=== PATIENT | female | born 1965 | race Caucasian/White ===

== ENCOUNTER 2024-08-31 12:58 | Emergency (ER) | payer MEDICAID, SELFPAY ==
[2024-08-31] VITALS (42 sets, daily range): BP systolic 77–149; BP diastolic 27–116; PULSE 61–108; RESP 11–31; TEMP 35.9–37; O2SAT 87–99
--- NOTE | 2024-08-31 13:12 | PC.NURSE ---
Spoke to Trae, patient POA, , notified him of patient arrival to ER. patient states that patient she has history of UTI and becomes altered.
--- NOTE | 2024-08-31 13:31 | ECG_ITS ---
Test Date: 2024-08-31 13:58:38 Measurements Intervals [place] Rate: 90 P: 64 [place]: 173 QRS: -66 QRSD: 145 T: 42 QT: 357 QTc: 438 Interpretive Statements SINUS RHYTHM LEFT AXIS DEVIATION [QRS AXIS < -30] RIGHT BUNDLE BRANCH BLOCK [120+ ms QRS DURATION, UPRIGHT V1, 40+ ms S IN I/aVL/V4/V5/V6] No previous ECG available for comparison Electronically Signed On 08-31-2024 14:58:34 CDT by Dc Martinez M.D.
--- NOTE | 2024-08-31 13:41 | ED.AMS ---
HPI - Altered Mental Status General Chief Complaint: Altered Mental Status Stated Complaint: Altered mental status Time Seen by Provider: 08/31/24 13:08 History of Present Illness HPI narrative: Patient is a 59-year-old female who presents ER with reports of altered mental status by the half-way. Patient has history of schizoaffective disorder. She is currently sitting in the room grinding her teeth and does not respond to verbal stimuli but does follow you across the room. She moans to noxious stimuli. Patient has scleral injection of the left eye that is apparently chronic. Related Data Allergies Allergy/AdvReac Type Severity Reaction Status Date / Time No Known Allergies Allergy Verified 08/31/24 13:21 Review of Systems Review of Systems: ROS unobtainable: Yes unobtainable due to mental status PMFSH Past Medical History Medical History (Updated 08/31/24 @ 16:20 by Lexa Anderson MD) Anxiety disorder Developmental disorder Encephalopathy, unspecified Epilepsy Major depressive disorder Schizoaffective disorder Exam Narrative: GENERAL: chronically ill-appearing and grinding her teeth, well-nourished, and in no acute distress. HEAD: Normocephalic, atraumatic. EYES: PERRL and EOMI. Left scleral injection ENT: Mucous membranes moist. CHEST: Clear to auscultation. No respiratory distress. HEART: Regular rate and rhythm. Normal peripheral pulses. ABDOMEN: Soft, nontender, nondistended. EXTREMITIES: Normal range of motion. No edema. SKIN: Warm, dry, no rash. NEURO: awake alert, does not answer questions put follows me around the room with her eyes. She responds to pain. Course Course Emergency Course: Patient hydrated. She is noticing happy birthday. She is talking to herself. Will give cephalexin discharge back to facility with similar prescription. Vital Signs Vital signs: Vital Signs Temperature 98.6 F 08/31/24 13:00 Pulse Rate 77 08/31/24 13:00 Respiratory Rate 27 H 08/31/24 13:00 Blood Pressure 149/116 H 08/31/24 13:00 Pulse Oximetry 95 08/31/24 13:00 Oxygen Delivery Room Air 08/31/24 13:00 Temperature 98.6 F 08/31/24 13:00 Pulse Rate 72 08/31/24 17:17 Respiratory Rate 19 08/31/24 16:46 Blood Pressure 92/71 L 08/31/24 16:46 Pulse Oximetry 98 08/31/24 16:46 Oxygen Delivery Room Air 08/31/24 13:00 MDM - Altered Mental Status Lab Data 08/31/24 14:23 08/31/24 14:23 Labs: Lab Results 08/31/24 Range/Units 14:23 WBC 7.6 (4.5-10.0) K/mm3 RBC 4.63 (4.2-5.4) M/mm3 Hgb 13.6 (12.0-15.0) g/dL Hct 42.5 (37.0-47.0) % MCV 91.8 (80-100) fl MCH 29.4 (26-34) pg MCHC 32.0 (32-36) g/dl RDW 13.5 (11.5-14.5) % Plt Count 256 (150-375) k/mm3 MPV 11.2 H (7.4-10.4) fl Immature Gran % (Auto) 0.3 (0-0.5) % Neut % (Auto) 69.0 (45.5-73.1) % Lymph % (Auto) 17.8 L (18.3-44.2) % [place] % (Auto) 10.6 H (2.6-8.5) % Eos % (Auto) 1.8 (0-4.4) % Baso % (Auto) 0.5 (0.2-1.2) % Lymph # (Auto) 1.36 (0.9-3.2) K/mm3 [place] # (Auto) 0.8 H (0.1-0.6) K/mm3 Eos # (Auto) 0.1 (0-0.3) K/mm3 Baso # (Auto) 0.0 (0.0-0.1) K/mm3 Abs Immat Gran (auto) 0.02 (0.00-0.031) K/mm3 Absolute Neuts (auto) 5.3 (1.3-6.7) K/mm3 Absolute Nucleated RBC 0.000 (0.0-0.012) K/mm3 Nucleated RBC % 0.0 (0.0-0.2) % PT 12.9 (11.1-14.7) Seconds INR 0.9 APTT 27.7 (22.3-36.8) Seconds Sodium 139 (137-145) mmol/L Potassium 4.2 (3.4-5.0) mmol/L Chloride 105 (98-107) mmol/L Carbon Dioxide 28 (22-30) mmol/L Anion Gap 6 (4-12) mmol/L BUN 25 H (7-17) mg/dL Creatinine 1.00 (0.7-1.0) mg/dL Estim Creat Clear Calc Not Reportable Estimated GFR 57 L (59 - ) Glucose 112 H (65-110) mg/dL Lactic Acid 0.9 (0.7-2.0) mmol/L Calcium 9.3 (8.4-10.2) mg/dL Total Bilirubin 0.3 (0.2-1.3) mg/dL AST 29 (14-36) U/L ALT 14 (6-35) U/L Alkaline Phosphatase 107 (38-126) U
[2024-08-31 13:51] LABS: Alveolar/Arterial O2 Gradient 26.7 mmHg; Base Excess ABG 1.5 mEq/l (+/-2.0); Fractional Inspired Oxygen 21 %; HCO3 ABG 26.1 mEq/l (22.0-26.0); Oxygen Content ABG 18.2 %vol (16.0-22.0); Oxyhemoglobin 93.9 % THb (90.0-100.0); PCO2 ABG 41.4 mmHg (35.0-45.0); PO2 ABG 73.5 mmHg (80.0-100.0); Total Hemoglobin 13.8 g/dL (12.0-18.0); pH ABG 7.418 (7.350-7.450)
[2024-08-31 13:52] LABS: Device ROOM AIR; Modified Allen's Test Pass; Site Drawn RIGHT RADIAL
[2024-08-31] MEDS: SODIUM CHLORIDE 0.9% IV 1,000 ML 999 ML IV CONT (13:55)
[2024-08-31 14:34] LABS: Basophils Percent Auto 0.5 % (0.2-1.2); Eosinophils Absolute Auto 0.1 K/mm3 (0-0.3); Eosinophils Percent Auto 1.8 % (0-4.4); Hematocrit 42.5 % (37.0-47.0); Hemoglobin 13.6 g/dL (12.0-15.0); Immature Granulocyte Absolute 0.02 K/mm3 (0.00-0.031); Immature Granulocyte Percent A 0.3 % (0-0.5); Lymphocytes Absolute Auto 1.36 K/mm3 (0.9-3.2); Lymphocytes Percent Auto 17.8 % (18.3-44.2); Mean Corpuscular Hemoglobin 29.4 pg (26-34); Mean Corpuscular Volume 91.8 fl (80-100); Mean Platelet Volume 11.2 fl (7.4-10.4); Monocytes Absolute Auto 0.8 K/mm3 (0.1-0.6); Monocytes Percent Auto 10.6 % (2.6-8.5); Neutrophils Absolute Auto 5.3 K/mm3 (1.3-6.7); Platelet Count Result 256 k/mm3 (150-375); Red Blood Count 4.63 M/mm3 (4.2-5.4); Red Cell Distribution Width 13.5 % (11.5-14.5); White Blood Count 7.6 K/mm3 (4.5-10.0)
[2024-08-31 14:41] LABS: Add Urine Microscopic? YES; Appearance Urine Clear (Clear); Bacteria Urine 4+ /hpf; Bilirubin Urine Negative (Negative); Blood Urine Negative (Negative); Color Urine Dark Yellow (Yellow); Glucose Urine UA Negative (Negative); Ketones Urine 1+ mg/dL (Negative); Leukocyte Esterase Ur Negative LEU/UL (Negative); Nitrate Urine Positive (Negative); Non Pathogenic Casts 0-2; Protein Urine Negative (Negative); RBC Urine 0-2 /hpf (0-2); Specific Grav Ur 1.025 (1.001-1.035); Squamous Epithelial Cell Urine None Seen /hpf (Few)
[2024-08-31 14:43] LABS: INR 0.9; Prothrombin Time 12.9 Seconds (11.1-14.7)
[2024-08-31 14:45] LABS: Partial Thromboplastin Time 27.7 Seconds (22.3-36.8)
[2024-08-31 14:46] LABS: Lactic Acid Reflex 0.9 mmol/L (0.7-2.0)
[2024-08-31 14:48] LABS: Alanine Aminotransferase 14 U/L (6-35); Albumin Level 3.9 g/dL (3.5-5.1); Alkaline Phosphatase 107 U/L (38-126); Anion Gap 6 mmol/L (4-12); Aspartate Amino Transferase 29 U/L (14-36); Bilirubin,Total 0.3 mg/dL (0.2-1.3); Blood Urea Nitrogen 25 mg/dL (7-17); Calcium 9.3 mg/dL (8.4-10.2); Carbon Dioxide 28 mmol/L (22-30); Chloride 105 mmol/L (98-107); Estimated Glomerular Filt Rate 57; Glucose 112 mg/dL (65-110); Potassium 4.2 mmol/L (3.4-5.0); Sodium 139 mmol/L (137-145)
[2024-08-31 15:00] LABS: Ammonia 20 umol/L (9-30)
[2024-08-31 15:03] LABS: Amphetamine Screen Urine Negative (Negative); Barbiturate Screen Urine Negative (Negative); Benzodiazepines Screen Urine Positive (Negative); Cannabinoid Screen Urine Negative (Negative); Cocaine Screen Urine Negative (Negative); Methadone Screen Urine Negative (Negative); Opiate Screen Urine Negative (Negative); Phencyclidine Screen Urine Negative (Negative)
[2024-08-31 15:18] LABS: Thyroid Stimulating Hormone 0.932 uIU/mL (0.465-4.680)
[2024-08-31] MEDS: CEPHALEXIN 500 MG CAPSULE PO (16:47)
--- NOTE | 2024-08-31 20:18 | PC.NURSE ---
Called [facility] to given report, MARIA ANTONIA Hoffman.
== END 2024-08-31 20:19 ==
PROVIDERS: Emergency Provider Emergency Medicine; PCP Internal Medicine
DX: N39.0 Urinary tract infection, site not specified (principal); G40.909 Epilepsy, unspecified, not intractable, without status epilepticus; G93.40 Encephalopathy, unspecified; F41.9 Anxiety disorder, unspecified; F32.9 Major depressive disorder, single episode, unspecified; F25.9 Schizoaffective disorder, unspecified; F89 Unspecified disorder of psychological development
CPT/HCPCS: 36415; 36600; 80053; 80307; 81001; 82140; 82805; 83605; 84443; 85018; 85025; 85610; 85730; 87086; 87186; 93005; 96360; 96361; 99284; A9270; J7030

== ENCOUNTER 2024-09-27 16:58 | Observation (INO) | payer MEDICARE, MEDICAID, SELFPAY ==
[2024-09-27] VITALS (8 sets, daily range): BP systolic 102–130; BP diastolic 71–93; PULSE 78–93; RESP 12–20; TEMP 36.4–36.9; O2SAT 97–100; BMI 24.1
--- NOTE | ~2024-09-27 | XR_ITS ---
CHEST RADIOGRAPH CLINICAL HISTORY: SOB . COMPARISON: None available TECHNIQUE: Single portable view of the chest. FINDINGS The cardiomediastinal silhouette is unremarkable. Increased interstitial markings are identified bilaterally, findings suggesting mild pulmonary vascul ar congestion. The lungs are otherwise clear. Visualized osseous structures and soft tissues are unremarkable. IMPRESSION: Mild pulmonary vascular congestion, without focal infiltrate or effusion. Reviewed, dictated and finalized at location A. [employer]OV[employer] INST[employer]ER
[2024-09-27] MEDS: ALBUTEROL SULFATE NEB 2.5 MG/3 ML INH INHALATION (17:12)
[2024-09-27 17:39] LABS: Basophils Percent Auto 0.3 % (0.2-1.2); Eosinophils Absolute Auto 0.2 K/mm3 (0-0.3); Hematocrit 39.6 % (37.0-47.0); Hemoglobin 13.2 g/dL (12.0-15.0); Immature Granulocyte Absolute 0.03 K/mm3 (0.00-0.031); Immature Granulocyte Percent A 0.3 % (0-0.5); Lymphocytes Absolute Auto 2.08 K/mm3 (0.9-3.2); Lymphocytes Percent Auto 22.8 % (18.3-44.2); Mean Corpuscular HGB Conc 33.3 g/dl (32-36); Mean Corpuscular Hemoglobin 30.3 pg (26-34); Mean Corpuscular Volume 90.8 fl (80-100); Mean Platelet Volume 11.7 fl (7.4-10.4); Monocytes Percent Auto 10.6 % (2.6-8.5); Neutrophils Absolute Auto 5.9 K/mm3 (1.3-6.7); Platelet Count Result 297 k/mm3 (150-375); Red Blood Count 4.36 M/mm3 (4.2-5.4); Red Cell Distribution Width 13.7 % (11.5-14.5); White Blood Count 9.1 K/mm3 (4.5-10.0)
[2024-09-27 17:49] LABS: Alanine Aminotransferase 12 U/L (6-35); Alkaline Phosphatase 93 U/L (38-126); Anion Gap 9 mmol/L (4-12); Aspartate Amino Transferase 26 U/L (14-36); Bilirubin,Total 0.3 mg/dL (0.2-1.3); Blood Urea Nitrogen 23 mg/dL (7-17); Calcium 9.2 mg/dL (8.4-10.2); Carbon Dioxide 26 mmol/L (22-30); Chloride 104 mmol/L (98-107); Estimated CRCL calculation 48 ml/min; Estimated Glomerular Filt Rate > 60; Glucose 81 mg/dL (65-110); Potassium 4.2 mmol/L (3.4-5.0); Sodium 139 mmol/L (137-145)
[2024-09-27 17:52] LABS: INR 1.1; Partial Thromboplastin Time 30.9 Seconds (22.3-36.8); Prothrombin Time 14.2 Seconds (11.1-14.7)
[2024-09-27 17:58] LABS: NT Pro B Type Natriuretic Pept 59 pg/mL (19.9-100)
[2024-09-27 18:17] LABS: Influenza A QL RT-PCR Negative (Negative); Influenza B QL RT-PCR Negative (Negative); RSV RNA, RT-PCR Negative (Negative); SARS-CoV-2 RNA PCR Negative (Negative)
--- NOTE | 2024-09-27 18:46 | ED.GENADULT ---
HPI - General Adult General Chief complaint: Shortness of Breath/Dyspnea Stated complaint: Resp Distress Time Seen by Provider: 09/27/24 17:06 History of Present Illness HPI narrative: 59-year-old female with history of developmental delay, have left the, epilepsy, schizoaffective disorder. Patient is currently at her normal baseline but patient did have an episode worsening shortness of breath at her care facility. She was found to be hypoxic by nursing staff this was called field EMS felt that she was having a flash pulmonary edema episode and patient was placed on CPAP. Upon arrival to the emergency department patient had improved and patient was transitioned to BiPAP. Patient is nonverbal at baseline and has no complaints at this time. Patient was in no distress upon arrival to the emergency department. Related Data Allergies Allergy/AdvReac Type Severity Reaction Status Date / Time No Known Allergies Allergy Verified 08/31/24 13:21 Review of Systems Review of Systems: All systems reviewed & are unremarkable except as noted in HPI and below PMFSH Past Medical History Medical History (Updated 09/27/24 @ 18:52 by Basim Vogel MD) Anxiety disorder Developmental disorder Encephalopathy, unspecified Epilepsy Major depressive disorder Schizoaffective disorder Exam Narrative: APPEARANCE: comfortable appearing HEAD: normocephalic, atraumatic. EYES: PERRLA/EOMI, conjunctivae clear. NOSE: Normal no drainage EARS:TMS clear with good light reflex. THROAT: Pharynx clear, no exudate. NECK: Supple. No adenopathy, no masses. RESPIRATORY: Airway patent, respirations nonlabored. Clear to auscultation bilaterally, no rales, rhonchi, wheezing. CARDIOVASCULA some wheezing and rhonchi ABDOMINAL: Soft, nontender, nondistended, normal bowel sounds MUSCULOSKELETAL: Moves all extremities. Strength/ROM intact, No edema, No calf tenderness. NEURO: Alert. Cranial nerves II through XII intact. Good gait. Good coordination SKIN: Warm, dry. Normal Color PSYCHIATRIC: Normal affect/mood. Course Vital Signs Vital signs: Vital Signs Pulse Rate 88 09/27/24 16:57 Respiratory Rate 20 09/27/24 16:57 Blood Pressure 128/93 H 09/27/24 16:57 Pulse Oximetry 99 09/27/24 16:57 Oxygen Delivery EMS-CPAP 09/27/24 16:57 Pulse Rate 85 09/27/24 18:00 Respiratory Rate 16 09/27/24 18:00 Blood Pressure 112/80 09/27/24 18:00 Pulse Oximetry 100 09/27/24 18:00 Oxygen Delivery EMS-CPAP 09/27/24 16:57 Medical Decision Making Vital Signs Vital Signs: Vital Signs Pulse Rate 88 09/27/24 16:57 Respiratory Rate 20 09/27/24 16:57 Blood Pressure 128/93 H 09/27/24 16:57 Pulse Oximetry 99 09/27/24 16:57 Oxygen Delivery EMS-CPAP 09/27/24 16:57 Pulse Rate 85 09/27/24 18:00 Respiratory Rate 16 09/27/24 18:00 Blood Pressure 112/80 09/27/24 18:00 Pulse Oximetry 100 09/27/24 18:00 Oxygen Delivery EMS-CPAP 09/27/24 16:57 Lab Data 09/27/24 17:14 09/27/24 17:14 Labs: Lab Results 09/27/24 09/27/24 Range/Units 17:14 17:18 WBC 9.1 (4.5-10.0) K/mm3 RBC 4.36 (4.2-5.4) M/mm3 Hgb 13.2 (12.0-15.0) g/dL Hct 39.6 (37.0-47.0) % MCV 90.8 (80-100) fl MCH 30.3 (26-34) pg MCHC 33.3 (32-36) g/dl RDW 13.7 (11.5-14.5) % Plt Count 297 (150-375) k/mm3 MPV 11.7 H (7.4-10.4) fl Immature Gran % (Auto) 0.3 (0-0.5) % Neut % (Auto) 64.0 (45.5-73.1) % Lymph % (Auto) 22.8 (18.3-44.2) % [place] % (Auto) 10.6 H (2.6-8.5) % Eos % (Auto) 2.0 (0-4.4) % Baso % (Auto) 0.3 (0.2-1.2) % Lymph # (Auto) 2.08 (0.9-3.2) K/mm3 [place] # (Auto) 1.0 H (0.1-0.6) K/mm3 Eos # (Auto) 0.2 (0-0.3) K/mm3 Baso # (Auto) 0.0 (0.0-0.1) K/mm3 Abs Immat Gran (auto) 0.03 (0.00-0.031) K/mm3 Absolute Neuts (auto) 5.9 (1.3-6.7) K/mm3 Absolute Nucleated RBC 0.000 (0.0-0.012) K/mm3 Nucleated RBC % 0.0 (0.0-0.2) % PT 14.2 (11.1-14.7) Seconds INR 1.1 APTT 30.9 (22.3-36.8) Seconds Sodium 139 (137-145) mmol/L Potassium 4.2 (3.4-5.0) mmol/L Chloride 104 (98-107) mmol/L Carbon Dioxide 26 (22-30) mmol/L Anion Gap 9 (4-12) mmol/L BUN 23 H (7-17) mg/dL Creatinine 0.90 (0.7-1.0) mg/dL Estim Creat Clear Calc 48 ml/min Estimated GFR > 60 (59 - ) Glucose 81 (65-110) mg/dL Calcium 9.2 (8.4-10.2) mg/dL Total Bilirubin 0.3 (0.2-1.3) mg/dL AST 26 (14-36) U/L ALT 12 (6-35) U/L Alkaline Phosphatase 93 (38-126) U/L NT-Pro-B Natriuret Pep 59 Cancelled (19.9-100) pg/mL Total Protein 8.0 (6.3-8.2) g/dL Albumin 4.0 (3.5-5.1) g/dL Influenza A (RT-PCR) Negative (Negative) Influenza B (RT-PCR) Negative (Negative) RSV (RT-PCR) Negative (Negative) SARS-CoV-2 RNA (RT-PCR) Negative (Negative) Discharge Plan Discharge Clinical Impression: Hypoxia, Flash pulmonary edema Patient Disposition: Still a Patient Condition: Serious Prescriptions: No Action cephalexin 500 mg capsule 500 mg PO Q12H Qty: 14 0RF Follow-up/Referrals: Prakash,MD Nabil [Primary Care Provider] -
--- NOTE | 2024-09-27 22:08 | ADMGEN ---
This patient, Amanda Cabrera, was admitted to Medical Room 345-. Patient/family oriented to hospital policies and general routines including ID bracelet, bed and alarms, visiting hours, pain management, procedures, bathroom and other care routines, personal items, smoking policy, room service/diet, and visiting hours. Information on how to activate the Rapid Response Team has been discussed. Patient/Family are encouraged to report perceived risks to care and to ask questions if they do not understand what they are told or what they should do.
[2024-09-28] VITALS (14 sets, daily range): BP systolic 107–114; BP diastolic 53–66; PULSE 77–115; RESP 16–20; TEMP 36.6–36.9; O2SAT 92–95
--- NOTE | 2024-09-28 | ECHO_ITS ---
Patient Info Name: Amanda Cabrera Age: 59 years : 1965 Gender: Female Ht: 64 in Wt: 135 lbs BSA: 1.67 m2 HR: 77 bpm BP: 112 / 66 mmHg Heart Rhythm: Sinus Rhythm Technical Quality: Good Exam Date: 09/28/2024 10:12 AM Exam Location: Echo Lab Patient Status: Outpatient Admit Date: 09/27/2024 Staff Ordering Physician: Flaquita Delgadillo DO [employer]: Isaiah Borrero RDCS Attending Provider: Kenny Peñaloza MD Referring Physician: Elie WRIGHT; Exam Type: CA echo doppler color flow Study Info Indications - pul edema, hypoxia Complete two-dimensional, color flow and Doppler transthoracic echocardiogram is performed. Summary 1. Complete two-dimensional, color flow and Doppler transthoracic echocardiogram is performed. 2. Left ventricular chamber dimension is normal. 3. Left ventricular systolic function is normal, estimated at 60-65%. 4. There is no increased left ventricular wall thickness. 5. The left ventricular diastolic function is grade I diastolic dysfunction. 6. Left atrial chamber dimension is mildly enlarged. 7. There is mild tricuspid valve regurgitation. Left Ventricle Left ventricular chamber dimension is normal. Left ventricular systolic function is normal, estimated at 60-65%. There is no increased left ventricular wall thickness. The left ventricular diastolic function is grade I diastolic dysfunction. Right Ventricle Right ventricular chamber dimension is normal. Right ventricular systolic function is normal. Left Atria Left atrial chamber dimension is mildly enlarged. Right Atria Right atrial chamber dimension is normal. Atrial Septum Intact interatrial septum visualized by color flow imaging. Aortic Valve The aortic valve is trileaflet. There is mild aortic valve sclerosis. There is no aortic valve stenosis. There is trace aortic valve regurgitation. Pulmonic Valve The pulmonic valve is normal. There is no pulmonic valve stenosis. There is trace pulmonic regurgitation. Mitral Valve The mitral valve has normal leaflets. There is no mitral valve stenosis. There is trace mitral valve regurgitation. Tricuspid Valve The tricuspid valve leaflets are normal. There is no significant tricuspid valve stenosis. There is mild tricuspid valve regurgitation. No pulmonary hypertension, estimated pulmonary arterial systolic pressure is 18 mmHg. Pericardium/Pleural The pericardium appears normal. There is no pericardial effusion. Inferior Vena Cava Normal inferior vena cava with >50% collapse upon inspiration consistent with normal right atrial pressure, 10 mmHg. Aorta The aortic root size at the sinus of Valsalva is normal. Left Ventricular Outflow Tract Name Value Normal LVOT 2D LVOT Diameter 1.9 cm LVOT Doppler LVOT Peak Gradient 3 mmHg LVOT Mean Gradient 2 mmHg LVOT VTI 17 cm LVOT VTI/AV VTI Ratio 0.9 LVOT Stroke Volume 47 ml LVOT CO 3.9 l/min LVOT CI 2.4 l/min/m2 Pulmonic Valve Name Value Normal PV Doppler PV Peak Gradient 4 mmHg Mitral Valve Name Value Normal MV Doppler MV Decel [place] 348 cm/s2 MV PHT 56 ms MV Area (PHT) 3.9 cm2 4.0-5.0 MV Diastolic Function MV E Peak Velocity 68 cm/s MV A Peak Velocity 71 cm/s MV E/A 1.0 MV Decel Time 194 ms MV Annular TDI MV E/e' (Septal) 8.5 <=8.0 MV E/e' (Lateral) 5.9 <=8.0 MV E/e' (Average) 7.2 Tricuspid Valve Name Value Normal TV Regurgitation Doppler TR Peak Velocity 138 cm/s TR Peak Gradient 8 mmHg Estimated PAP/RSVP RA Pressure 10 mmHg <=5 PA Systolic Pressure 18 mmHg <36 RV Systolic Pressure 18 mmHg <36 Aortic Valve Name Value Normal AV Doppler AV Peak Velocity 103 cm/s AV Peak Gradient 4 mmHg AV Mean Gradient 3 mmHg AV VTI 18 cm AV Area (Cont Eq VTI) 2.6 cm2 >=3.0 AV Area (Cont Eq [place]) 2.2 cm2 AV Regurgitation 2D LVOT Area 2.8 cm2 Ventricles Name Value Normal LV Dimensions 2D/MM IVS Diastolic Thickness (2D) 0.7 cm 0.6-1.0 LVID Diastole (2D) 3.8 cm 3.8-5.2 LVIW Diastolic Thickness (2D) 0.7 cm 0.6-0.9 LVID Systole (2D) 2.6 cm 2.2-3.5 LVOT Diameter 1.9 cm LV Mass (2D Cubed) 72.36 g 67.00-162.00 LV Mass Index (2D Cubed) 43 g/m2 43-95 Relative Wall Thickness (2D) 0.38 LV Fractional Shortening/Ejection Fraction 2D/MM LV Fractional Shortening (2D) 32 % 27-45 LV EF (2D Teicholz) 60 % 54-74 LV Diastolic Volume (4C MOD) 67 ml LV EF (4C MOD) 67 % LV Diastolic Volume (2C MOD) 61 ml LV EF (2C MOD) 60 % LV Diastolic Volume (BP MOD) 64 ml 46-106 LV Diastolic Volume Index (BP MOD) 38 ml/m2 29-61 LV Systolic Volume (BP MOD) 23 ml 14-42 LV Systolic Volume Index (BP MOD) 14 ml/m2 8-24 LV EF (BP MOD) 63 % 54-74 LV Diastolic Length (4C) 7.7 cm LV Systolic Length (4C) 6.2 cm LV Stroke Volume (4C MOD) 45 ml Atria Name Value Normal LA Dimensions LA Volume (4C A-L) 24 ml LA Volume (BP A-L) 22 ml RA Dimensions RA Area (4C) 11.2 cm2 <=18.0 Report Signatures
--- NOTE | 2024-09-28 05:51 | PM.IMHP ---
H&P: HPI History of Present Illness Date/Time: 09/28/24 05:51 Chief Complaint: Increased work of breathing Narrative: 59-year-old female with past medical history of intellectual disability, schizoaffective disorder, major depressive disorder and glaucoma presented to ER from [facility] care (formally [facility]) due to labored respirations. Nursing staff check patient's oxygen saturation which was reportedly 82%. EMS place patient on CPAP. On arrival to the ER patient was not in any respiratory distress. Patient was satting 100% on 2 L nasal cannula on arrival to the ER. Patient was rapidly weaned down to room air and arrived to the medical floor on room air and oxygen saturations have remained between 93 and 100% since admission. Patient has not had any witnessed cough or respiratory events since admission. Chest x-ray in the ER suggested possible mild pulmonary vascular congestion. Patient has no evidence of lower extremity edema or dependent edema. She has no known history of CHF for COPD. Patient is unable to provide any history in simply moans in yells out when staff evaluate her she continually grinds her teeth. Patient is at her baseline. Patient did well strongly of urine at the time of my evaluation. She is chronically incontinent of bowel and bladder. Review of Systems Review of Systems: ROS unobtainable: Yes unobtainable due to medical condition (Intellectual disability) COUNT INCLUDES THE [facility] Past Medical History Medical History (Updated 09/28/24 @ 08:38 by Flaquita Delgadillo DO) Anxiety disorder Epilepsy Intellectual disability Major depressive disorder Schizoaffective disorder Surgical History Surgical History (Updated 09/28/24 @ 08:53 by Flaquita Delgadillo DO) Surgical history unknown Family History Family History Other Unknown family medical history Social History Social History (Updated 09/28/24 @ 08:54 by Flaquita Delgadillo DO) Social History: Code status: Full code (per long term documentation) Smoking status: Unknown if ever smoked Spiritual care concerns: No Meds Home Medications and Allergies Home Medications Medication Instructions Recorded Confirmed Type acetaminophen 325 mg tablet 60 mg PO Q4H PRN pain or fever 09/27/24 09/27/24 History alprazolam 0.5 mg tablet (Xanax) 0.5 mg PO TID 09/27/24 09/27/24 History aripiprazole 20 mg tablet 20 mg PO DAILY 09/27/24 09/27/24 History bupropion HCl 150 mg 24 hr tablet, 150 mg PO QAM 09/27/24 09/27/24 History extended release (Wellbutrin XL) famotidine 20 mg tablet 20 mg PO DAILY 09/27/24 09/27/24 History lisinopril 10 mg tablet 10 mg PO DAILY 09/27/24 09/27/24 History medroxyprogesterone 150 mg/mL 300 mg IM ONCE 09/27/24 09/27/24 History intramuscular suspension (Depo-Provera) multivitamin-iron 9 mg-folic acid 1 tablet PO DAILY 09/27/24 09/27/24 History 400 mcg-calcium and minerals tablet nystatin 1 billion unit oral powder 1 unit PO BID 09/27/24 09/27/24 History valproic acid 250 mg capsule 750 mg PO HS 09/27/24 09/27/24 History Allergies Allergy/AdvReac Type Severity Reaction Status Date / Time No Known Allergies Allergy Verified 09/27/24 22:08 Vital Signs Vital Signs - 24 hr 09/27/24 16:57 09/27/24 17:12 09/27/24 16:57 Temperature 98.3 F Pulse Rate 88 84 Respiratory Rate 18 16 Blood Pressure 128/93 H Pulse Oximetry 99 Oxygen Delivery EMS-CPAP EMS-CPAP Oxygen Flow Rate 09/27/24 18:00 09/27/24 17:15 09/27/24 17:55 Temperature Pulse Rate 85 84 Respiratory Rate 16 20 Blood Pressure 112/80 Pulse Oximetry 100 100 100 Oxygen Delivery BiPAP Nasal Cannula Oxygen Flow Rate 2 09/27/24 19:16 09/27/24 19:16 09/27/24 19:16 Temperature 97.6 F Pulse Rate 78 84 Respiratory Rate 12 Blood Pressure 102/73 Pulse Oximetry 100 100 Oxygen Delivery Nasal Cannula Oxygen Flow Rate 0.5 09/27/24 20:08 09/27/24 22:00 09/28/24 04:46 Temperature 98.5 F 98.4 F Pulse Rate 93 77 Respiratory Rate 18 16 Blood Pressure 130/71 114/66 Pulse Oximetry 100 97 95 Oxygen Delivery Room Air Oxygen Flow Rate Exam Narrative: Weight 61.9 kg BMI 24.2 Const: Other: Chronically debilitated, appears older than stated age, height weight proportionate, sitting in bed with head of bed at 40? HENMT: Other: Mucous membranes are tacky, or exam limited due to lack of patient cooperation, patient is chronically grinding her teeth with evidence of several loose teeth that are mobile when the patient is grinding, head is normocephalic atraumatic Eyes: Other: Pupils are equal and reactive,, no scleral icterus Neck: Other: No lymphadenopathy, supple Resp: Other: Clear to auscultation bilaterally, shallow respirations, no increased work of breathing Cardio: Other: Regular rate, regular rhythm, 2+ bilateral radial pedal pulses GI: Other: Soft, nontender, normoactive bowel sounds no organomegaly : Other: Incontinent of urine Skin: Other: Mild pallor, non jaundice, warm to touch Neuro: Other: Patient is awake seems alert will need eye contact of examiner but no meaningful communication, she randomly yells out words and grinds her teeth continuously, she had increased tone of the right upper extremity Extrem: Other: Increased tone of the right upper extremity, patient does move bilateral lower extremities but does not move or follow commands which limits examination Psych: Other: Disheveled, appears older than stated age alert, and appropriate vocalizations, moaning and continual recurrent nonsensical vocalizations H&P: Results Labs Labs: Laboratory Tests 09/27/24 17:14 09/27/24 17:14 09/27/24 09/27/24 17:14 17:18 WBC 9.1 RBC 4.36 Hgb 13.2 Hct 39.6 MCV 90.8 MCH 30.3 MCHC 33.3 RDW 13.7 Plt Count 297 MPV 11.7 H Immature Gran % (Auto) 0.3 Neut % (Auto) 64.0 Lymph % (Auto) 22.8 [place] % (Auto) 10.6 H Eos % (Auto) 2.0 Baso % (Auto) 0.3 Lymph # (Auto) 2.08 [place] # (Auto) 1.0 H Eos # (Auto) 0.2 Baso # (Auto) 0.0 Abs Immat Gran (auto) 0.03 Absolute Neuts (auto) 5.9 Absolute Nucleated RBC 0.000 Nucleated RBC % 0.0 PT 14.2 INR 1.1 APTT 30.9 Sodium 139 Potassium 4.2 Chloride 104 Carbon Dioxide 26 Anion Gap 9 BUN 23 H Creatinine 0.90 Estim Creat Clear Calc 48 Estimated GFR > 60 Glucose 81 Calcium 9.2 Total Bilirubin 0.3 AST 26 ALT 12 Alkaline Phosphatase 93 NT-Pro-B Natriuret Pep 59 Cancelled Total Protein 8.0 Albumin 4.0 Influenza A (RT-PCR) Negative Influenza B (RT-PCR) Negative RSV (RT-PCR) Negative SARS-CoV-2 RNA (RT-PCR) Negative Impressions Chest X-Ray 09/27/24 17:31 (personally reviewed) IMPRESSION: Mild pulmonary vascular congestion, without focal infiltrate or effusion. EKG: Personally reviewed and interpreted agree with cardiology interpretation. Measurements Intervals [place] Rate: 90 P: 64 NC: 173 QRS: -66 QRSD: 145 T: 42 QT: 357 QTc: 438 Interpretive Statements SINUS RHYTHM LEFT AXIS DEVIATION [QRS AXIS < -30] RIGHT BUNDLE BRANCH BLOCK [120+ ms QRS DURATION, UPRIGHT V1, 40+ ms S IN I/aVL/V4/V5/V6] No previous ECG available for comparison Assessment and Plan Assessment and plan (1) Hypoxia: Code(s): R09.02 - Hypoxemia Status: Acute Assessment and Plan: Patient had hypoxia. X-ray suggested possible pulmonary edema however patient's BMP was normal. Patient had resolution of her hypoxia after nebulizer treatment and has not had recurrence. residential staff had reported the patient had increased nasal and oral mucus. Hypoxia could also be due to hospital mucous plugging? Patient does not have known history of COPD or asthma. The patient is not actively wheezing. She did not receive diuretic therapy show less likely that patient had flash pulmonary edema resulting in hypoxia that resolved with only CPAP without other intervention. She has not had any labored respirations since admission in remains with sats 96-100% since admission. Cause is uncertain. Patient does not have a white count or indications of infection. I obtained a D-dimer which is normal subsequently pulmonary embolism less likely specially in the setting of transient hypoxia. Will monitor him will obtain echocardiogram to further evaluate cardiac structure and function. Otherwise will resume patient's home antipsychotics, anxiolytics, and antidepressants. Patient has been admitted as observation status. Quality VTE Prophylaxis VTE prophylaxis: pharmacologic ordered (Lovenox 40 mg subQ daily.) Hospitalist [facility] Advance Care Plan I have confirmed that the patient's Advanced Care Plan is present, code status is documented, or surrogate decision maker is listed in patient medical record.: Yes Medication Reconciliation I have utilized all available resources to obtain, update and review the patients current medications (includes all prescriptions, OTC, herbals, cannabis, and nutritional supplements).: Yes
[2024-09-28] MEDS: ALBUTEROL SULFATE NEB 2.5 MG/3 ML INH INHALATION ×3 (07:36→19:37)
[2024-09-28 09:20] LABS: Basophils Percent Auto 0.2 % (0.2-1.2); Eosinophils Absolute Auto 0.1 K/mm3 (0-0.3); Eosinophils Percent Auto 0.8 % (0-4.4); Hematocrit 37.6 % (37.0-47.0); Hemoglobin 12.3 g/dL (12.0-15.0); Immature Granulocyte Absolute 0.03 K/mm3 (0.00-0.031); Immature Granulocyte Percent A 0.3 % (0-0.5); Lymphocytes Percent Auto 15.5 % (18.3-44.2); Mean Corpuscular HGB Conc 32.7 g/dl (32-36); Mean Corpuscular Hemoglobin 30.2 pg (26-34); Mean Corpuscular Volume 92.4 fl (80-100); Mean Platelet Volume 12.2 fl (7.4-10.4); Monocytes Percent Auto 9.2 % (2.6-8.5); Neutrophils Absolute Auto 7.6 K/mm3 (1.3-6.7); Platelet Count Result 271 k/mm3 (150-375); Red Blood Count 4.07 M/mm3 (4.2-5.4); Red Cell Distribution Width 13.8 % (11.5-14.5); White Blood Count 10.3 K/mm3 (4.5-10.0)
[2024-09-28] MEDS: buPROPion HCL XL (24 HR) 150 MG TABCR PO (09:24)
[2024-09-28] MEDS: THERAPEUTIC MULTIVITAMINS/MINERALS TAB (*BKC) 1 TABLET PO (09:24)
[2024-09-28] MEDS: lisinopriL 10 MG TABLET PO (09:24)
[2024-09-28] MEDS: ALPRAZolam (*CRX) 0.5 MG TABLET PO ×3 (09:24→17:40)
[2024-09-28] MEDS: FAMOTIDINE 20 MG TABLET PO (09:24)
[2024-09-28] MEDS: ENOXAPARIN 40 MG/0.4 ML SYRINGE SUB-Q (09:25)
[2024-09-28 09:31] LABS: Alanine Aminotransferase 11 U/L (6-35); Albumin Level 3.6 g/dL (3.5-5.1); Alkaline Phosphatase 83 U/L (38-126); Anion Gap 6 mmol/L (4-12); Aspartate Amino Transferase 29 U/L (14-36); Bilirubin,Total 0.4 mg/dL (0.2-1.3); Blood Urea Nitrogen 19 mg/dL (7-17); Calcium 9.4 mg/dL (8.4-10.2); Carbon Dioxide 29 mmol/L (22-30); Chloride 105 mmol/L (98-107); Estimated CRCL calculation 54 ml/min; Estimated Glomerular Filt Rate > 60; Glucose 83 mg/dL (65-110); Magnesium 1.9 mg/dL (1.6-2.3); Potassium 4.1 mmol/L (3.4-5.0); Sodium 140 mmol/L (137-145)
[2024-09-28] MEDS: ARIPiprazole 10 MG TABLET 20 MG PO (10:17)
--- NOTE | 2024-09-28 10:36 | P.PNIM_ITS ---
Progress Note: A&P Assessment and Plan (1) Hypoxia: Code(s): R09.02 - Hypoxemia Status: Acute Assessment and Plan: * Patient had hypoxia. X-ray suggested possible pulmonary edema however patient's BMP was normal. Patient had resolution of her hypoxia after nebulizer treatment and has not had recurrence. [facility] staff had reported the patient had increased nasal and oral mucus. * Albuterol neb q 6. * Oxygen PRN, currrently Sa02 93% RA. * Echo showed: Summary 1. Complete two-dimensional, color flow and Doppler transthoracic echocardiogram is performed. 2. Left ventricular chamber dimension is normal. 3. Left ventricular systolic function is normal, estimated at 60-65%. 4. There is no increased left ventricular wall thickness. 5. The left ventricular diastolic function is grade I diastolic dysfunction. 6. Left atrial chamber dimension is mildly enlarged. 7. There is mild tricuspid valve regurgitation. Subjective Date/time seen: 09/28/24 10:36 Interval history: 59-year-old female with past medical history of intellectual disabilit y, schizoaffective disorder, major depressive disorder and glaucoma presented to ER from [facility] ([facility]) due to labored respirations. Patient is unable to provide history, laughs, or in simple moans yells out. Review of Systems Review of Systems: All systems reviewed & are unremarkable except as noted in HPI and below Exam Const: General: no acute distress Other: Chronically debilitated. Appears older than stated age. Resp: Effort & Inspection: normal respiratory effort Auscultation: clear to auscultation bilaterally Cardio: Rate: regular rate Rhythm: regular rhythm Other: Telemetry SR 79 GI: GI Palp: Yes Soft to palpation Auscultation: normal bowel sounds : Other: Incontinent of urine. Skin: General skin exam: no rashes or lesions noted Extrem: Other: Increased tone of the right upper extremity, patient does move bilateral lower extremities but does not move or follow commands which limits examination Psych: Other: Disheveled, appears older than stated age alert, and appropriate vocalizations, moaning and continual recurrent nonsensical vocalizations Objective Data Vital Signs Vital Signs: Vital Signs - 24 hr 09/27/24 16:57 09/27/24 17:12 09/27/24 16:57 Temperature 98.3 F Pulse Rate 88 84 Respiratory Rate 18 16 Blood Pressure 128/93 H Pulse Oximetry 99 Oxygen Delivery EMS-CPAP EMS-CPAP Oxygen Flow Rate 09/27/24 18:00 09/27/24 17:15 09/27/24 17:55 Temperature Pulse Rate 85 84 Respiratory Rate 16 20 Blood Pressure 112/80 Pulse Oximetry 100 100 100 Oxygen Delivery BiPAP Nasal Cannula Oxygen Flow Rate 2 09/27/24 19:16 09/27/24 19:16 09/27/24 19:16 Temperature 97.6 F Pulse Rate 78 84 Respiratory Rate 12 Blood Pressure 102/73 Pulse Oximetry 100 100 Oxygen Delivery Nasal Cannula Oxygen Flow Rate 0.5 09/27/24 20:08 09/27/24 22:00 09/28/24 04:46 Temperature 98.5 F 98.4 F Pulse Rate 93 77 Respiratory Rate 18 16 Blood Pressure 130/71 114/66 Pulse Oximetry 100 97 95 Oxygen Delivery Room Air Oxygen Flow Rate 09/28/24 07:40 09/28/24 07:41 09/28/24 07:47 Temperature Pulse Rate 87 88 Respiratory Rate 20 20 Blood Pressure Pulse Oximetry 93 Oxygen Delivery Room Air Oxygen Flow Rate 09/28/24 08:00 Temperature Pulse Rate Respiratory Rate Blood Pressure Pulse Oximetry Oxygen Delivery Room Air Oxygen Flow Rate Intake/Output Intake/Output: Intake & Output 09/25/24 09/26/24 09/27/24 09/28/24 23:59 23:59 23:59 23:59 Intake Total 0 Balance 0 Meds/Results Medications: Active Medications Generic Name Dose Route Start Last Admin Trade Name Freq PRN Reason Stop Dose Admin Albuterol 2.5 mg 09/27/24 20:00 09/28/24 10:16 Albuterol Sulfate Neb 2.5 Mg/3 Ml Inh INHALATION Not Given Q6HRT MARLON Alprazolam 0.5 mg 09/28/24 09:00 09/28/24 09:24 Alprazolam (*Crx) 0.5 Mg Tablet PO 0.5 mg TID MARLON Administration Aripiprazole 20 mg 09/28/24 09:00 09/28/24 10:17 Aripiprazole 10 Mg Tablet PO 20 mg QAM MARLON Administration Bupropion HCl 150 mg 09/28/24 09:00 09/28/24 09:24 Bupropion Hcl Xl (24 Hr) 150 Mg Tabcr PO 150 mg QAM MARLON Administration Enoxaparin Sodium 40 mg 09/28/24 09:00 09/28/24 09:25 Enoxaparin 40 Mg/0.4 Ml Syringe SUB-Q 40 mg DAILY MARLON Administration Famotidine 20 mg 09/28/24 09:00 09/28/24 09:24 Famotidine 20 Mg Tablet PO 20 mg DAILY MARLON Administration Lisinopril 10 mg 09/28/24 09:00 09/28/24 09:24 Lisinopril 10 Mg Tablet PO 10 mg DAILY MARLON Administration Multivitamins/Calcium 1 tablet 09/28/24 09:00 09/28/24 09:24 Therapeutic Multivitamins/Minerals Tab (*Bkc) PO 1 tablet DAILY MARLON Administration Perflutren Lipid Microsphere 0 ml 09/28/24 02:53 Perflutren Lipid Microspheres 1.5 Ml Vial Diluted To 10 Ml Total Volume IV PUSH 10/01/24 02:53 ONCE PRN adequate visualization Protocol Valproic Acid 750 mg 09/28/24 21:00 Valproic Acid 250 Mg Capsule PO [facility] Radiology Results: ITS Impressions Chest X-Ray 09/27/24 17:31 IMPRESSION: Mild pulmonary vascular congestion, without focal infiltrate or effusion. Labs Labs: Laboratory Results - last 24 hr 09/27/24 09/27/24 09/28/24 17:14 17:18 06:18 WBC 9.1 10.3 H RBC 4.36 4.07 L Hgb 13.2 12.3 Hct 39.6 37.6 MCV 90.8 92.4 MCH 30.3 30.2 MCHC 33.3 32.7 RDW 13.7 13.8 Plt Count 297 271 MPV 11.7 H 12.2 H Immature Gran % (Auto) 0.3 0.3 Neut % (Auto) 64.0 74.0 H Lymph % (Auto) 22.8 15.5 L Sebastian % (Auto) 10.6 H 9.2 H Eos % (Auto) 2.0 0.8 Baso % (Auto) 0.3 0.2 Lymph # (Auto) 2.08 1.60 Sebastian # (Auto) 1.0 H 1.0 H Eos # (Auto) 0.2 0.1 Baso # (Auto) 0.0 0.0 Abs Immat Gran (auto) 0.03 0.03 Absolute Neuts (auto) 5.9 7.6 H Absolute Nucleated RBC 0.000 0.000 Nucleated RBC % 0.0 0.0 PT 14.2 INR 1.1 APTT 30.9 D-Dimer 0.30 Sodium 139 140 Potassium 4.2 4.1 Chloride 104 105 Carbon Dioxide 26 29 Anion Gap 9 6 BUN 23 H 19 H Creatinine 0.90 0.80 Estim Creat Clear Calc 48 54 Estimated GFR > 60 > 60 Glucose 81 83 Calcium 9.2 9.4 Magnesium 1.9 Total Bilirubin 0.3 0.4 AST 26 29 ALT 12 11 Alkaline Phosphatase 93 83 NT-Pro-B Natriuret Pep 59 Cancelled Total Protein 8.0 7.0 Albumin 4.0 3.6 Influenza A (RT-PCR) Negative Influenza B (RT-PCR) Negative RSV (RT-PCR) Negative SARS-CoV-2 RNA (RT-PCR) Negative Quality VTE Prophylaxis VTE prophylaxis: pharmacologic ordered (Lovenox 40 mg subQ daily.)
[2024-09-28] MEDS: VALPROIC ACID LIQ 250 MG/5 ML ORAL SOLUTION UDC 750 MG PO (21:55)
[2024-09-29] VITALS (12 sets, daily range): BP systolic 94–112; BP diastolic 55–66; PULSE 71–101; RESP 18–20; TEMP 36.8; O2SAT 94–96
[2024-09-29] MEDS: ALBUTEROL SULFATE NEB 2.5 MG/3 ML INH INHALATION ×3 (01:52→13:10)
[2024-09-29 06:40] LABS: Basophils Percent Auto 0.4 % (0.2-1.2); Eosinophils Absolute Auto 0.1 K/mm3 (0-0.3); Eosinophils Percent Auto 1.5 % (0-4.4); Hematocrit 39.8 % (37.0-47.0); Hemoglobin 12.7 g/dL (12.0-15.0); Immature Granulocyte Absolute 0.03 K/mm3 (0.00-0.031); Immature Granulocyte Percent A 0.4 % (0-0.5); Lymphocytes Absolute Auto 1.45 K/mm3 (0.9-3.2); Lymphocytes Percent Auto 19.2 % (18.3-44.2); Mean Corpuscular HGB Conc 31.9 g/dl (32-36); Mean Corpuscular Hemoglobin 29.5 pg (26-34); Mean Corpuscular Volume 92.6 fl (80-100); Mean Platelet Volume 11.2 fl (7.4-10.4); Monocytes Absolute Auto 0.8 K/mm3 (0.1-0.6); Monocytes Percent Auto 10.7 % (2.6-8.5); Neutrophils Absolute Auto 5.1 K/mm3 (1.3-6.7); Neutrophils Percent Auto 67.8 % (45.5-73.1); Platelet Count Result 274 k/mm3 (150-375); Red Cell Distribution Width 13.8 % (11.5-14.5); White Blood Count 7.6 K/mm3 (4.5-10.0)
[2024-09-29 07:04] LABS: Alanine Aminotransferase 12 U/L (6-35); Albumin Level 3.8 g/dL (3.5-5.1); Alkaline Phosphatase 91 U/L (38-126); Anion Gap 5 mmol/L (4-12); Aspartate Amino Transferase 26 U/L (14-36); Bilirubin,Total 0.4 mg/dL (0.2-1.3); Blood Urea Nitrogen 23 mg/dL (7-17); Calcium 9.5 mg/dL (8.4-10.2); Carbon Dioxide 30 mmol/L (22-30); Chloride 108 mmol/L (98-107); Estimated CRCL calculation 48 ml/min; Estimated Glomerular Filt Rate > 60; Glucose 87 mg/dL (65-110); Potassium 4.2 mmol/L (3.4-5.0); Sodium 143 mmol/L (137-145)
[2024-09-29] MEDS: ALPRAZolam (*CRX) 0.5 MG TABLET PO ×2 (09:15→13:27)
[2024-09-29] MEDS: ENOXAPARIN 40 MG/0.4 ML SYRINGE SUB-Q (09:15)
[2024-09-29] MEDS: buPROPion HCL XL (24 HR) 150 MG TABCR PO (09:15)
[2024-09-29] MEDS: ARIPiprazole 10 MG TABLET 20 MG PO (09:15)
[2024-09-29] MEDS: FAMOTIDINE 20 MG TABLET PO (09:15)
[2024-09-29] MEDS: THERAPEUTIC MULTIVITAMINS/MINERALS TAB (*BKC) 1 TABLET PO (09:15)
[2024-09-29] MEDS: lisinopriL 10 MG TABLET PO (09:15)
--- NOTE | 2024-09-29 09:26 | PM.IMPN ---
Progress Note: A&P Assessment and Plan (1) Hypoxia: Code(s): R09.02 - Hypoxemia Status: Acute Assessment and Plan: Patient had hypoxia. X-ray suggested possible pulmonary edema however patient's BMP was normal. Patient had resolution of her hypoxia after nebulizer treatment and has not had recurrence. [facility] staff had reported the patient had increased nasal and oral mucus. Albuterol neb q 6. Oxygen PRN, currrently Sa02 93% RA. Echo showed: Summary 1. Complete two-dimensional, color flow and Doppler transthoracic echocardiogram is performed. 2. Left ventricular chamber dimension is normal. 3. Left ventricular systolic function is normal, estimated at 60-65%. 4. There is no increased left ventricular wall thickness. 5. The left ventricular diastolic function is grade I diastolic dysfunction. 6. Left atrial chamber dimension is mildly enlarged. 7. There is mild tricuspid valve regurgitation. Subjective Date/time seen: 09/29/24 09:26 Interval history: 59-year-old female with past medical history of intellectual disability, schizoaffective disorder, major depressive disorder and glaucoma presented to ER from due to labored respirations. Review of Systems Review of Systems: All systems reviewed & are unremarkable except as noted in HPI and below ROS unobtainable: Yes unobtainable due to medical condition (Intellectual disability) Exam Narrative: Weight 61.9 kg BMI 24.2 Const: General: no acute distress Other: Chronically debilitated. Appears older than stated age. HENMT: Other: Mucous membranes are tacky, or exam limited due to lack of patient cooperation, patient is chronically grinding her teeth with evidence of several loose teeth that are mobile when the patient is grinding, head is normocephalic atraumatic Eyes: Other: Pupils are equal and reactive,, no scleral icterus Neck: Other: No lymphadenopathy, supple Resp: Effort & Inspection: normal respiratory effort Auscultation: clear to auscultation bilaterally Other: Clear to auscultation bilaterally, shallow respirations, no increased work of breathing Cardio: Rate: regular rate Rhythm: regular rhythm Other: Telemetry SR 79 GI: Auscultation: normal bowel sounds Other: Soft, nontender, normoactive bowel sounds no organomegaly : Other: Incontinent of urine. Skin: General skin exam: no rashes or lesions noted Other: Mild pallor, non jaundice, warm to touch Neuro: Other: Patient is awake seems alert will need eye contact of examiner but no meaningful communication, she randomly yells out words and grinds her teeth continuously, she had increased tone of the right upper extremity Extrem: Other: Increased tone of the right upper extremity, patient does move bilateral lower extremities but does not move or follow commands which limits examination Psych: Other: Disheveled, appears older than stated age alert, and appropriate vocalizations, moaning and continual recurrent nonsensical vocalizations Objective Data Vital Signs Vital Signs: Vital Signs - 24 hr 09/28/24 12:00 09/28/24 13:11 09/28/24 13:20 Temperature Pulse Rate 106 H 105 H 115 H Respiratory Rate 20 20 Blood Pressure Pulse Oximetry Oxygen Delivery 09/28/24 15:37 09/28/24 16:00 09/28/24 19:37 Temperature 97.8 F Pulse Rate 105 H 96 Respiratory Rate 19 Blood Pressure 112/53 L Pulse Oximetry 95 95 Oxygen Delivery Room Air 09/28/24 19:37 09/28/24 19:43 09/28/24 20:00 Temperature Pulse Rate 99 103 H Respiratory Rate 16 16 Blood Pressure Pulse Oximetry Oxygen Delivery Room Air 09/28/24 22:00 09/29/24 01:52 09/29/24 01:58 Temperature 98.2 F Pulse Rate 100 93 99 Respiratory Rate 18 20 20 Blood Pressure 107/58 L Pulse Oximetry 92 Oxygen Delivery 09/28/24 20:00 09/29/24 00:00 09/29/24 04:00 Temperature Pulse Rate 107 H 101 H 94 Respiratory Rate Blood Pressure Pulse Oximetry Oxygen Delivery 09/29/24 05:16 09/29/24 08:26 09/29/24 08:26 Temperature 98.2 F Pulse Rate 73 Respiratory Rate 18 20 Blood Pressure 112/66 Pulse Oximetry 94 94 Oxygen Delivery Room Air 09/29/24 08:37 Temperature Pulse Rate 71 Respiratory Rate 20 Blood Pressure Pulse Oximetry Oxygen Delivery Intake/Output Intake/Output: Intake & Output 09/26/24 09/27/24 09/28/24 09/29/24 23:59 23:59 23:59 23:59 Intake Total 340 Output Total 300 Balance 40 Meds/Results Medications: Active Medications Generic Name Dose Route Start Last Admin Trade Name Freq PRN Reason Stop Dose Admin Albuterol 2.5 mg 09/27/24 20:00 09/29/24 08:24 Albuterol Sulfate Neb 2.5 Mg/3 Ml Inh INHALATION 2.5 mg Q6HRT MARLON Administration Alprazolam 0.5 mg 09/28/24 09:00 09/29/24 09:15 Alprazolam (*Crx) 0.5 Mg Tablet PO 0.5 mg TID MARLON Administration Aripiprazole 20 mg 09/28/24 09:00 09/29/24 09:15 Aripiprazole 10 Mg Tablet PO 20 mg QAM MARLON Administration Bupropion HCl 150 mg 09/28/24 09:00 09/29/24 09:15 Bupropion Hcl Xl (24 Hr) 150 Mg Tabcr PO 150 mg QAM MARLON Administration Enoxaparin Sodium 40 mg 09/28/24 09:00 09/29/24 09:15 Enoxaparin 40 Mg/0.4 Ml Syringe SUB-Q 40 mg DAILY MARLON Administration Famotidine 20 mg 09/28/24 09:00 09/29/24 09:15 Famotidine 20 Mg Tablet PO 20 mg DAILY MARLON Administration Lisinopril 10 mg 09/28/24 09:00 09/29/24 09:15 Lisinopril 10 Mg Tablet PO 10 mg DAILY MARLON Administration Multivitamins/Calcium 1 tablet 09/28/24 09:00 09/29/24 09:15 Therapeutic Multivitamins/Minerals Tab (*Bkc) PO 1 tablet DAILY MARLON Administration Perflutren Lipid Microsphere 0 ml 09/28/24 02:53 Perflutren Lipid Microspheres 1.5 Ml Vial Diluted To 10 Ml Total Volume IV PUSH 10/01/24 02:53 ONCE PRN adequate visualization Protocol Valproate Sodium 750 mg 09/28/24 21:00 09/28/24 21:55 Valproic Acid Liq 250 Mg/5 Ml Oral Solution Udc PO 750 mg HS MARLON Administration Radiology Results: ITS Impressions Chest X-Ray 09/27/24 17:31 IMPRESSION: Mild pulmonary vascular congestion, without focal infiltrate or effusion. Labs Labs: Laboratory Results - last 24 hr 09/28/24 09/29/24 06:18 06:28 WBC 7.6 RBC 4.30 Hgb 12.7 Hct 39.8 MCV 92.6 MCH 29.5 MCHC 31.9 L RDW 13.8 Plt Count 274 MPV 11.2 H Immature Gran % (Auto) 0.4 Neut % (Auto) 67.8 Lymph % (Auto) 19.2 Tillman % (Auto) 10.7 H Eos % (Auto) 1.5 Baso % (Auto) 0.4 Lymph # (Auto) 1.45 Tillman # (Auto) 0.8 H Eos # (Auto) 0.1 Baso # (Auto) 0.0 Abs Immat Gran (auto) 0.03 Absolute Neuts (auto) 5.1 Absolute Nucleated RBC 0.000 Nucleated RBC % 0.0 Sodium 140 143 Potassium 4.1 4.2 Chloride 105 108 H Carbon Dioxide 29 30 Anion Gap 6 5 BUN 19 H 23 H Creatinine 0.80 0.90 Estim Creat Clear Calc 54 48 Estimated GFR > 60 > 60 Glucose 83 87 Calcium 9.4 9.5 Magnesium 1.9 Total Bilirubin 0.4 0.4 AST 29 26 ALT 11 12 Alkaline Phosphatase 83 91 Total Protein 7.0 7.0 Albumin 3.6 3.8 Quality VTE Prophylaxis VTE prophylaxis: pharmacologic ordered (Lovenox 40 mg subQ daily.)
--- NOTE | 2024-09-29 11:57 | PM.DS ---
DS: Admitting Diagnosis Discharge Date 09/29/2024 Admitting Diagnosis acute respiratory distress DS: Discharge Diagnosis Discharge Diagnosis (1) Hypoxia: Code(s): R09.02 - Hypoxemia Status: Acute Assessment and Plan: Patient had hypoxia. X-ray suggested possible pulmonary edema however patient's BMP was normal. Patient had resolution of her hypoxia after nebulizer treatment and has not had recurrence. [facility] staff had reported the patient had increased nasal and oral mucus. Albuterol neb q 6. Oxygen PRN, currrently Sa02 93% RA. Echo showed: Summary 1. Complete two-dimensional, color flow and Doppler transthoracic echocardiogram is performed. 2. Left ventricular chamber dimension is normal. 3. Left ventricular systolic function is normal, estimated at 60-65%. 4. There is no increased left ventricular wall thickness. 5. The left ventricular diastolic function is grade I diastolic dysfunction. 6. Left atrial chamber dimension is mildly enlarged. 7. There is mild tricuspid valve regurgitation. DS: Summary Hospital Course Hospital Course: [id number] with past medical history of intellectual disability, schizoaffective disorder, major depressive disorder and glaucoma presented to ER from [facility] ([facility]) due to labored respirations. Nursing staff check patient's oxygen saturation which was reportedly 82%. EMS place patient on CPAP. On arrival to the ER patient was not in any respiratory distress. Patient was satting 100% on 2 L nasal cannula on arrival to the ER. Patient was rapidly weaned down to room air and arrived to the medical floor on room air and oxygen saturations have remained between 93 and 100% since admission. Patient has not had any witnessed cough or respiratory events since admission. Chest x-ray in the ER suggested possible mild pulmonary vascular congestion. Patient has no evidence of lower extremity edema or dependent edema. She has no known history of CHF for COPD. Patient is unable to provide any history in simply moans in yells out when staff evaluate her she continually grinds her teeth. Patient is at her baseline. Patient did well strongly of urine at the time of my evaluation. She is chronically incontinent of bowel and bladder. Patient had hypoxia. X-ray suggested possible pulmonary edema however patient's BMP was normal. Patient had resolution of her hypoxia after nebulizer treatment and has not had recurrence. [facility] staff had reported the patient had increased nasal and oral mucus. while patient was here she had echocardiogram that showed EF of 60 65%. Patient had no oxygenation issues while in hospital she could possibly have a mucus plug that cause hypoxia which has now resolved. Hospital course was uneventful. Patient may return to her senior living. Status at Discharge Cognitive/behavioral status at discharge: At baseline Functional status at discharge: wheelchair bound Overall status at discharge: patient is back to baseline Time Spent with Patient Time attestation: Total time spent providing and/or coordinating discharge services: Exam Narrative: Weight 61.9 kg BMI 24.2 Const: General: no acute distress Other: Chronically debilitated. Appears older than stated age. HENMT: Other: exam limited due to lack of patient cooperation, patient is chronically grinding her teeth with evidence of several loose teeth that are mobile when the patient is grinding, head is normocephalic atraumatic Eyes: Other: Pupils are equal and reactive,, no scleral icterus Neck: Other: No lymphadenopathy, supple Resp: Effort & Inspection: normal respiratory effort Auscultation: clear to auscultation bilaterally Other: Clear to auscultation bilaterally, shallow respirations, no increased work of breathing Cardio: Rate: regular rate Rhythm: regular rhythm Other: Telemetry SR 79 GI: Auscultation: normal bowel sounds Other: Soft, nontender, normoactive bowel sounds no organomegaly : Other: Incontinent of urine. Skin: General skin exam: no rashes or lesions noted Other: Mild pallor, non jaundice, warm to touch Neuro: Other: Patient is awake seems alert will need eye contact of examiner but no meaningful communication, she randomly yells out words and grinds her teeth continuously, she had increased tone of the right upper extremity Extrem: Other: Increased tone of the right upper extremity, patient does move bilateral lower extremities but does not move or follow commands which limits examination Psych: Other: Disheveled, appears older than stated age alert, and appropriate vocalizations, moaning and continual recurrent nonsensical vocalizations DS: Data Data Completed and Pending Pending studies at discharge: Na Labs on day of discharge: Labs from last 24 hours 09/29/24 06:28 WBC 7.6 RBC 4.30 Hgb 12.7 Hct 39.8 MCV 92.6 MCH 29.5 MCHC 31.9 L RDW 13.8 Plt Count 274 MPV 11.2 H Immature Gran % (Auto) 0.4 Neut % (Auto) 67.8 Lymph % (Auto) 19.2 Schley % (Auto) 10.7 H Eos % (Auto) 1.5 Baso % (Auto) 0.4 Lymph # (Auto) 1.45 Schley # (Auto) 0.8 H Eos # (Auto) 0.1 Baso # (Auto) 0.0 Abs Immat Gran (auto) 0.03 Absolute Neuts (auto) 5.1 Absolute Nucleated RBC 0.000 Nucleated RBC % 0.0 Sodium 143 Potassium 4.2 Chloride 108 H Carbon Dioxide 30 Anion Gap 5 BUN 23 H Creatinine 0.90 Estim Creat Clear Calc 48 Estimated GFR > 60 Glucose 87 Calcium 9.5 Total Bilirubin 0.4 AST 26 ALT 12 Alkaline Phosphatase 91 Total Protein 7.0 Albumin 3.8 Imaging Radiologist's impression: CHEST RADIOGRAPH CLINICAL HISTORY: SOB . COMPARISON: None available TECHNIQUE: Single portable view of the chest. FINDINGS The cardiomediastinal silhouette is unremarkable. Increased interstitial markings are identified bilaterally, findings suggesting mild pulmonary vascular congestion. The lungs are otherwise clear. Visualized osseous structures and soft tissues are unremarkable. IMPRESSION: Mild pulmonary vascular congestion, without focal infiltrate or effusion. Discharge Plan Discharge Attending physician on discharge: Rl Overton Discharging Clinician: Jayshree Beatty Anticipated Discharge Date/Time: 09/29/24 12:02 Patient Disposition: NH Senior Living/Asst Living Activity: march shower Diet: regular Discharge Instructions: Discharge instructions: Take medications as prescribed New medications prescribed: you were not started on any new medications continue with home medications as usual You are activity as tolerated Monitor blood pressures Avoid social areas, you wear a mask when in social settings Encouraged to continue with yearly vaccinations Return to the emergency department if he developed sudden shortness of breath, chest pain, nausea, vomiting, upset stomach or intractable diarrhea Return to the emergency department if you develop fever greater than 101.5 Follow-up with: Your primary care physician within 1-2 weeks for post hospitalization check up Thank you for [facility] for your healthcare needs Patient Instructions: Pain Management (DC), Hypoxia (GEN) Stand Alone Forms: General Discharge Information, Prison Discharge Follow-up/Referrals: Prakash,MD Nabil [Primary Care Provider] - 2 Weeks ( post hospitalization) Discharge Medications: Continued acetaminophen 325 mg Tablet 60 mg PO Q4H PRN (Reason: pain or fever) valproic acid 250 mg Capsule 750 mg PO HS alprazolam [Xanax] 0.5 mg Tablet 0.5 mg PO TID famotidine 20 mg Tablet 20 mg PO DAILY lisinopril 10 mg Tablet 10 mg PO DAILY medroxyprogesterone [Depo-Provera] 150 mg/mL Suspension 300 mg IM ONCE Rx Instructions: On the day of the month of January, Apr, Jul, Oct nystatin 1 billion unit Powder 1 unit PO BID Rx Instructions: apply to groin and buttocks aripiprazole 20 mg Tablet 20 mg PO DAILY bupropion HCl [Wellbutrin XL] 150 mg Tablet Extended Release 24 Hr 150 mg PO QAM Thera M Plus (ferrous fumarat) 9 mg iron-400 mcg Tablet 1 tablet PO DAILY Date of admission: 09/27/24 18:52 Primary Care Provider: MaryNabil Admitting Provider: Kenny Peñaloza Attending physician on admission: Kenny Peñaloza Condition: Stable Quality VTE Prophylaxis VTE prophylaxis: pharmacologic ordered (Lovenox 40 mg subQ daily.) Hospitalist MIPS Heart Failure (Exclusion) Patient has history of Heart Transplant or Left Ventricular Assistive Device?: No IF YES, STOP HERE Heart Failure (Qualifier) Patient has current or prior documentation of LVEF less than or equal to 40%, or mod/servere depressed LVSF?: No IF NO, STOP HERE
== END 2024-09-29 14:00 ==
LOC: ANHED 18:52 → ANH3MED 22:08
PROVIDERS: Internal Medicine; Nurse Practitioner Family; Admitting Provider Internal Medicine; Emergency Provider Emergency Medicine; PCP Internal Medicine; Visit Provider Hospitalist
DX: R09.02 Hypoxemia (principal); F79 Unspecified intellectual disabilities; G40.909 Epilepsy, unspecified, not intractable, without status epilepticus; F41.9 Anxiety disorder, unspecified; F32.9 Major depressive disorder, single episode, unspecified; F25.9 Schizoaffective disorder, unspecified; H40.9 Unspecified glaucoma; R15.9 Full incontinence of feces; R32 Unspecified urinary incontinence; Z20.822 Contact with and (suspected) exposure to COVID-19; Z79.3 Long term (current) use of hormonal contraceptives; Z79.899 Other long term (current) drug therapy; Z99.3 Dependence on wheelchair
CPT/HCPCS: 36415; 71045; 80053; 83735; 83880; 85025; 85380; 85610; 85730; 87637; 93306; 94640; 96372; 99285; A9270; G0378; J1650

== ENCOUNTER 2024-10-13 23:16 | Inpatient (IN) | payer MEDICARE, MEDICAID, SELFPAY ==
--- NOTE | ~2024-10-13 | XR_ITS ---
XR chest 1V portable Ordering provider: Bar Stewart MD History: 59 years Female with . increased oxygen demand . Comparison: None. FINDINGS: MEDIASTINUM: The cardiac silhouette is not enlarged. LUNGS: No effusions or pneumothorax. Bilateral interstitial changes which may indicate pneumonitis. U nderlying fibrotic changes are noted excluded. Possibility of focal area of pneumonia in the left low er lobe medially is not excluded. OTHER: No free air under the diaphragm. Degenerative spine. IMPRESSION: Bilateral interstitial thickening which may indicate pneumonitis. Clinical correlation advised. Under lying fibrotic changes is not excluded. Reviewed, dictated and finalized at location A. ICAL PROJECT MANAGER IMPRESSION: Bilateral interstitial thickening which may indicate pneumonitis. Clinical luiz elation advised. Underlying fibrotic changes is not excluded.
--- NOTE | ~2024-10-13 | XR_ITS ---
EXAMINATION: XR barium swallow modified DATE: 10/19/2024 13:11 INDICATION: Dysphagia. TECHNIQUE: The patient was given barium-containing material of multiple consistencies to swallow by t benjamin speech pathologist while I performed fluoroscopy. Fluoroscopy exposure time was 1.7 minutes. The n umber of fluoroscopy images saved to the PACS was 2. Dose-area product was 1.644 Gy-cm^2. FINDINGS: There is decreased bolus control and the oral stage. There is decreased laryngeal elevation, decrease d laryngeal adduction, reduced tongue base retraction, vallecular residue, and laryngeal penetration. There is aspiration of thin liquids and mildly thick liquids. IMPRESSION: 1. Aspiration of thin liquids and mildly thick liquids. 2. Please refer to the speech therapy report for recommendations. Reviewed, dictated and finalized at location A. TRIC REFRIGERATOR PREPARER
--- NOTE | ~2024-10-13 | XR_ITS ---
XR abdomen gastric tube insert INDICATION: Evaluate NG tube position. TECHNIQUE: Limited KUB perform for evaluating NG tube . COMPARISON: No prior studies for comparison. FINDINGS: NG tube tip in the midesophagus. Recommend advancement Visualized bowel gas pattern is unre markable.There is moderate residual contrast in the bowel. IMPRESSION: 1: NG tube tip in the midesophagus. Recommend advancement. Reviewed, dictated and finalized at location B. MENTAL STONEMASON
--- NOTE | ~2024-10-13 | XR_ITS ---
EXAMINATION: XR chest PICC line Exam Date/Time: 10/16/2024 13:50 OIL BURNER MECHANIC HISTORY: PICC LINE- VERIFY PLACEMENT, ADJUSTMENT Comparison: Same date at 1:45 PM. RESULT: Lines, tubes, and devices: Right upper extremity PICC has been retracted, now terminating in the SVC . Lungs and pleura: Low volumes with crowding. Cardiomediastinal silhouette: Stable. Other: No acute osseous or upper abdominal finding. IMPRESSION: PICC terminates in the SVC. Reviewed, dictated and finalized at location K. BURNER MECHANIC IMPRESSION: PICC terminates in the SVC.
--- NOTE | ~2024-10-13 | XR_ITS ---
EXAMINATION: XR abdomen gastric tube rechec DATE: 10/19/2024 17:27 INDICATION: Nasogastric tube advancement. TECHNIQUE: A semierect view of the abdomen was obtained. COMPARISON: Abdomen radiograph at 4:28 PM FINDINGS: The lower abdomen is excluded. There are no dilated loops of bowel. The nasogastric tube ti p is in the stomach with proximal side-port in the distal esophagus. There is a catheter tip in the s uperior vena cava. IMPRESSION: 1. Nasogastric tube tip in the stomach with proximal side-port in the distal esophagus. Advancement 7 cm is recommended. Reviewed, dictated and finalized at location A. IC WORKS MANAGER IMPRESSION: 1. Nasogastric tube tip in the stomach with proximal side-port in the distal es ophagus. Advancement 7 cm is recommended.
--- NOTE | ~2024-10-13 | CT_ITS ---
EXAMINATION: CT diagnostic chest wo con DATE: 10/14/2024 00:27 INDICATION: cough, known pulmonary edema TECHNIQUE: Computed tomography (CT) of the chest was performed without intravenous contrast. Addition al 3D reconstructions utilizing coronal maximum intensity projection (MIP) were performed. Automated exposure control and iterative reconstruction technique were employed. The dose-length product was 19 6.08 mGy-cm. COMPARISON: None FINDINGS: There is mild to moderate basilar predominant respiratory motion artifact which mildly limits evaluat ion. There is diffuse mild bronchial wall thickening with scattered mucous plugging consistent with b ronchitis. There is mild tree-in-bud opacity in the posterior right upper lobe and in the basilar rig ht lower lobe suspicious for early pneumonia. No smooth septal line thickening to suggest pulmonary e christian. No pleural effusion. Heart size is normal. No pericardial effusion. Thoracic aorta is normal in caliber. No pathologically enlarged thoracic adenopathy. Visualized upper abdomen is unremarkable. M oderate thoracic spondylosis. IMPRESSION: 1. Diffuse bronchitis with small regions of tree-in-bud opacity consistent with likely developing pne umonia in the right upper and right lower lobes. Reviewed, dictated and finalized at location A. MACHINE TAILER IMPRESSION: 1. Diffuse bronchitis with small regions of tree-in-bud opacity consistent with likely developing pneumonia in the right upper and right lower lobes.
--- NOTE | ~2024-10-13 | XR_ITS ---
XR abdomen gastric tube rechec Ordering provider: Desmond Ro MD History: . NG recheck . Comparison: None. FINDINGS/impression: BOWEL: Nasogastric tube is seen with the tip in the stomach. The sidehole is near to the gastroesopha geal area junction. Contrast is seen in the large bowel. Nonobstructive bowel gas pattern. Reviewed, dictated and finalized at location A. NG CREW PUSHER
--- NOTE | ~2024-10-13 | XR_ITS ---
Portable chest x-ray Comparison: 10/20/2024 Clinical History: Hypoxia Findings: NG tube and right-sided PICC line are in place. There is mild patchy haziness in the right lung. Left lung clear. Cardiomediastinal silhouette is stable. Bones and soft tissues are unremarka ble. Impression: Mild patchy haziness right lung. Correlate for asymmetric pulmonary edema versus infection. Support tubes, as above. Reviewed, dictated and finalized at location . OLOGY ADMINISTRATOR Impression: Mild patchy haziness right lung. Correlate for asymmetric pulmonary edema versu s infection. Support tubes, as above.
--- NOTE | ~2024-10-13 | XR_ITS ---
EXAMINATION: XR chest PICC line Exam Date/Time: 10/16/2024 13:45 RADIOLOGY SERVICES MANAGER HISTORY: PICC LINE- VERIFY PLACEMENT Comparison: 10/14/2024. RESULT: Lines, tubes, and devices: New right upper extremity PICC terminating in the right atrium. Lungs and pleura: Rightward rotation. Low volumes with crowding. Cardiomediastinal silhouette: Stable. Other: No acute osseous or upper abdominal finding. IMPRESSION: PICC terminates in the right atrium, consider 3 cm retraction. Reviewed, dictated and finalized at location K. OLOGY SERVICES MANAGER
--- NOTE | ~2024-10-13 | XR_ITS ---
XR chest 1V portable 10/19/2024 16:45 Indication: Decreased oxygen saturation Procedure: AP portable chest Comparison: 10/16/2024 Findings: There is asymmetric left-sided airspace disease which may be due to technique/rotation, alt grant a developing pneumonia or asymmetric edema is not excluded. NG tube tip in the midesophagus. PI CC line tip in the SVC. No pleural effusion or pneumothorax. Impression: 1: Asymmetric left-sided airspace disease which may be due to technique/rotation, although a developi ng pneumonia or asymmetric edema is not excluded. Reviewed, dictated and finalized at location B. TAL STRATEGY SPECIALIST Impression: 1: Asymmetric left-sided airspace disease which may be due to technique/rotatio n, although a developing pneumonia or asymmetric edema is not excluded.
--- NOTE | ~2024-10-13 | XR_ITS ---
Portable chest x-ray Comparison: 10/19/2024 Clinical History: Aspiration Findings: NG tube and right-sided PICC line are in place. Lungs are clear, without focal consolidati on or pleural effusion. Cardiomediastinal silhouette is stable. Bones and soft tissues are unremarka ble. Impression: Clear lungs. Support tubes, as above. Reviewed, dictated and finalized at location M. S BELT SANDER Impression: Clear lungs. Support tubes, as above.
--- NOTE | ~2024-10-13 | XR_ITS ---
XR chest 1V portable DATE: 10/14/2024 00:17 INDICATION: Cough, known pulmonary edema TECHNIQUE: Portable AP chest on 10/14/2024 at 0014 hours COMPARISON: 09/27/2024 portable AP chest FINDINGS: Heart size is normal. No hilar or mediastinal enlargement is evident. Compared to 09/27/2024 there is mild pulmonary vascular and interstitial prominence as well as mild p rominence of the minor fissure. There is mild to moderate elevation right diaphragm. No pleural effusion or pneumothorax is evident. IMPRESSION: Mild pulmonary vascular congestion and suggestion of mild pulmonary interstitial subpleur al edema since 09/27/2024. Normal heart size. Reviewed, dictated and finalized at location A. NCE AGENT IMPRESSION: Mild pulmonary vascular congestion and suggestion of mild pulmonary interstitial subpleural edema since 09/27/2024. Normal heart size.
[2024-10-13 23:15] VITALS: BP 136/84; PULSE 119; RESP 29; TEMP 38.1; O2SAT 86
--- NOTE | 2024-10-13 23:22 | ED_ITS ---
HPI - Fever General Chief Complaint: Fever Stated Complaint: SEPSIS, FEVER Source: patient Mode of arrival: EMS Limitations: dementia History of Present Illness HPI Narrative: This is a 59-year-old female with PMH of schizoaffective disorder, intellectual disability, dementia who presents to the ED via EMS for chief complaint of cough and fever. Staff there were concerned for sepsis. Patient was recently admitt ed here for hypoxia and possible pulmonary edema about 2 weeks ago. Patient's baseline mental status is A&O x 0-1 and is nonverbal. EMS reported elevated temperature and hypoxia on room air that responded well to 6 L of oxygen. EMS reports that patient has been coughing but nonproductive. Her code status is full Related Data Home Medications Medication Instructions Recorded Confirmed acetaminophen 325 mg tablet 60 mg PO Q4H PRN pain or fever 09/27/24 09/27/24 alprazolam 0.5 mg tablet (Xanax) 0.5 mg PO TID 09/27/24 09/27/24 aripiprazole 20 mg tablet 20 mg PO DAILY 09/27/24 09/27/24 bupropion HCl 150 mg 24 hr tablet, 150 mg PO QAM 09/27/24 09/27/24 extended release (Wellbutrin XL) famotidine 20 mg tablet 20 mg PO DAILY 09/27/24 09/27/24 lisinopril 10 mg tablet 10 mg PO DAILY 09/27/24 09/27/24 medroxyprogesterone 150 mg/mL 300 mg IM ONCE 09/27/24 09/27/24 intramuscular suspension (Depo-Provera) multivitamin-iron 9 mg-folic acid 1 tablet PO DAILY 09/27/24 09/27/24 400 mcg-calcium and minerals tablet nystatin 1 billion unit oral powder 1 unit PO BID 09/27/24 09/27/24 valproic acid 250 mg capsule 750 mg PO HS 09/27/24 09/27/24 Allergies Allergy/AdvReac Type Severity Reaction Status Date / Time No Known Allergies Allergy Verified 09/27/24 22:08 Review of Systems Review of Systems: All systems as dictated in HPI [facility] Past Medical History Medical History (Updated 10/14/24 @ 02:24 by Johnnie Nava PA-C) Anxiety disorder Epilepsy Intellectual disability Major depressive disorder Schizoaffective disorder Surgical History Surgical History (Updated 09/28/24 @ 08:53 by Flaquita Delgadillo DO) Surgical history unknown Family History Family History Other Unknown family medical history Social History Social History (Updated 09/28/24 @ 08:54 by Flaquita Delgadillo DO) Social History: Code status: Full code (per long-term documentation) Smoking status: Unknown if ever smoked Spiritual care concerns: No Exam Narrative: GENERAL: Well-appearing, well-nourished, and in no acute distress. HEAD: Normocephalic, atraumatic. EYES: PERRLA and EOMI. ENT: Significant mucus drainage from the bilateral nares. NECK: Supple. No adenopathy or masses. CHEST: Tachypneic and hypoxic on room air. Maintaining airway. Coarse breath sounds heard bilaterally. Saturating 93% on 2 L O2. HEART: Regular rate and rhythm. No murmur heard. Normal peripheral pulses. ABDOMEN: Soft, nontender, nondistended, normal active bowel sounds. MSK: Normal range of motion. No edema. SKIN: Warm, dry, no rash. NEURO: Alert and oriented x0-1, at baseline. Will respond to name but otherwise is nonverbal. No focal deficits. PSYCH: Normal mood and affect. Course Vital Signs Vital signs: Vital Signs Temperature 100.6 F H 10/13/24 23:15 Pulse Rate 119 H 10/13/24 23:15 Respiratory Rate 29 H 10/13/24 23:15 Blood Pressure 136/84 10/13/24 23:15 Pulse Oximetry 86 L 10/13/24 23:15 Oxygen Delivery Room Air 10/13/24 23:15 Temperature 100.6 F H 10/13/24 23:15 Pulse Rate 119 H 10/13/24 23:15 Respiratory Rate 29 H 10/13/24 23:15 Blood Pressure 136/84 10/13/24 23:15 Pulse Oximetry 95 10/13/24 23:41 Oxygen Delivery Nasal Cannula 10/13/24 23:41 Oxygen Flow Rate 2 10/13/24 23:41 MDM - Fever MDM Narrative Medical decision making narrative: This is a 59-year-old female presenting from long-term for possible sepsis. Vitals showing tachypnea, tachycardia, febrile and hypoxic on room air. Exam shows coarse breath sounds bilaterally, but no significant increased work of breathing and she is maintaining airway. Sepsis protocol was started. Lab work shows elevated CRP at 5. White count is normal the CBC. Lactate is normal. ABG is unremarkable as well. BUN elevated to 28 but creatinine remains normal. BNP only mildly elevated of 176. Patient is saturating well on [address] chest shows minimal possible right pulmonary edema but otherwise no acute findings. Viral swabs are positive for RSV. Presentation is consistent with acute viral illness due to the RSV. Started on broad-spectrum antibiotics as part of sepsis protocol but we will discontinue these going forward. Dr. Delgadillo will admit the patient to med/tele Lab Data 10/13/24 23:29 10/13/24 23:32 Labs: Lab Results 10/13/24 10/13/24 10/13/24 Range/Units 23:28 23:29 23:32 WBC 9.7 (4.5-10.0) K/mm3 RBC 4.20 (4.2-5.4) M/mm3 Hgb 12.6 (12.0-15.0) g/dL Hct 37.8 (37.0-47.0) % MCV 90.0 (80-100) fl MCH 30.0 (26-34) pg MCHC 33.3 (32-36) g/dl RDW 13.9 (11.5-14.5) % Plt Count 262 (150-375) k/mm3 MPV 11.5 H (7.4-10.4) fl Immature Gran % (Auto) 0.3 (0-0.5) % Neut % (Auto) 78.0 H (45.5-73.1) % Lymph % (Auto) 9.0 L (18.3-44.2) % Andrew % (Auto) 12.3 H (2.6-8.5) % Eos % (Auto) 0.1 (0-4.4) % Baso % (Auto) 0.3 (0.2-1.2) % Lymph # (Auto) 0.87 L (0.9-3.2) K/mm3 Andrew # (Auto) 1.2 H (0.1-0.6) K/mm3 Eos # (Auto) 0.0 (0-0.3) K/mm3 Baso # (Auto) 0.0 (0.0-0.1) K/mm3 Abs Immat Gran (auto) 0.03 (0.00-0.031) K/mm3 Absolute Neuts (auto) 7.5 H (1.3-6.7) K/mm3 Absolute Nucleated RBC 0.000 (0.0-0.012) K/mm3 Nucleated RBC % 0.0 (0.0-0.2) % PT 13.5 (11.1-14.7) Seconds INR 1.0 APTT 34.3 (22.3-36.8) Seconds Sodium 137 (137-145) mmol/L Potassium 4.5 (3.4-5.0) mmol/L Chloride 101 (98-107) mmol/L Carbon Dioxide 27 (22-30) mmol/L Anion Gap 9 (4-12) mmol/L BUN 28 H (7-17) mg/dL Creatinine 1.00 (0.7-1.0) mg/dL Estim Creat Clear Calc 44 ml/min Estimated GFR 57 L (59 - ) Glucose 101 (65-110) mg/dL Lactic Acid 0.7 (0.7-2.0) mmol/L Calcium 9.3 (8.4-10.2) mg/dL Total Bilirubin 0.5 (0.2-1.3) mg/dL AST 29 (14-36) U/L ALT 12 (6-35) U/L Alkaline Phosphatase 95 (38-126) U/L C-Reactive Protein 5.0 H (<1.0) mg/dL NT-Pro-B Natriuret Pep 176 H (19.9-100) pg/mL Total Protein 7.0 (6.3-8.2) g/dL Albumin 4.0 (3.5-5.1) g/dL Lipase 57 (23-300) U/L Procalcitonin 0.2 ng/mL Urine Color (Yellow) Urine Appearance (Clear) Urine pH (5.0-9.0) Ur Specific Ivins (1.001-1.035) Urine Protein (Negative) mg/dL Urine Glucose (UA) (Negative) mg/dL Urine Ketones (Negative) mg/dL Ur Blood (Man) (Negative) Urine Nitrate (Negative) Urine Bilirubin (Negative) Urine Urobilinogen (<2.0) mg/dL Add Ur Microanalysis Leukocyte Esterase Rfl (Negative) ANGIE/UL Urine RBC (0-2) /hpf Urine WBC (0-3) /hpf Ur Squamous Epith Cells (Few) /hpf Urine Bacteria /hpf Urine Casts Influenza A (RT-PCR) (Negative) Influenza B (RT-PCR) (Negative) RSV (RT-PCR) (Negative) SARS-CoV-2 RNA (RT-PCR) (Negative) 10/13/24 10/13/24 Range/Units 23:35 23:55 WBC (4.5-10.0) K/mm3 RBC (4.2-5.4) M/mm3 Hgb (12.0-15.0) g/dL Hct (37.0-47.0) % MCV (80-100) fl MCH (26-34) pg MCHC (32-36) g/dl RDW (11.5-14.5) % Plt Count (150-375) k/mm3 MPV (7.4-10.4) fl Immature Gran % (Auto) (0-0.5) % Neut % (Auto) (45.5-73.1) % Lymph % (Auto) (18.3-44.2) % Andrew % (Auto) (2.6-8.5) % Eos % (Auto) (0-4.4) % Baso % (Auto) (0.2-1.2) % Lymph # (Auto) (0.9-3.2) K/mm3 Andrew # (Auto) (0.1-0.6) K/mm3 Eos # (Auto) (0-0.3) K/mm3 Baso # (Auto) (0.0-0.1) K/mm3 Abs Immat Gran (auto) (0.00-0.031) K/mm3 Absolute Neuts (auto) (1.3-6.7) K/mm3 Absolute Nucleated RBC (0.0-0.012) K/mm3 Nucleated RBC % (0.0-0.2) % PT (11.1-14.7) Seconds INR APTT (22.3-36.8) Seconds Sodium (137-145) mmol/L Potassium (3.4-5.0) mmol/L Chloride (98-107) mmol/L Carbon Dioxide (22-30) mmol/L Anion Gap (4-12) mmol/L BUN (7-17) mg/dL Creatinine (0.7-1.0) mg/dL Estim Creat Clear Calc ml/min Estimated GFR (59 - ) Glucose (65-110) mg/dL Lactic Acid (0.7-2.0) mmol/L Calcium (8.4-10.2) mg/dL Total Bilirubin (0.2-1.3) mg/dL AST (14-36) U/L ALT (6-35) U/L Alkaline Phosphatase (38-126) U/L C-Reactive Protein (<1.0) mg/dL NT-Pro-B Natriuret Pep (19.9-100) pg/mL Total Protein (6.3-8.2) g/dL Albumin (3.5-5.1) g/dL Lipase (23-300) U/L Procalcitonin ng/mL Urine Color Yellow (Yellow) Urine Appearance Clear (Clear) Urine pH 5.5 (5.0-9.0) Ur Specific Ivins 1.025 (1.001-1.035) Urine Protein Negative (Negative) mg/dL Urine Glucose (UA) Negative (Negative) mg/dL Urine Ketones 1+ H (Negative) mg/dL Ur Blood (Man) Trace (Negative) Urine Nitrate Negative (Negative) Urine Bilirubin Negative (Negative) Urine Urobilinogen 1.0 (<2.0) mg/dL Add Ur Microanalysis Reviewed Leukocyte Esterase Rfl Negative (Negative) ANGIE/UL Urine RBC 3-5 H (0-2) /hpf Urine WBC 0-5 (0-3) /hpf Ur Squamous Epith Cells None seen (Few) /hpf Urine Bacteria None seen /hpf Urine Casts 0-2 Influenza A (RT-PCR) Negative (Negative) Influenza B (RT-PCR) Negative (Negative) RSV (RT-PCR) Positive A (Negative) SARS-CoV-2 RNA (RT-PCR) Negative (Negative) ABG Data ABG results: 10/13/24 23:36 Puncture Site Right radial ABG pH 7.436 ABG pCO2 33.5 L ABG pO2 66.1 L ABG PO2/FiO2 Ratio 2.36 ABG HCO3 22.0 ABG O2 Saturation 93.9 L ABG O2 Content 16.6 ABG Base Excess -1.5 A-a Gradient 146.4 Oxyhemoglobin 93.0 Total Hemoglobin 12.7 O2 Delivery Device Nasal cannula O2 Liters/Min 2.0 FiO2 28 Discharge Plan Discharge Clinical Impression: Hypoxia, Respiratory syncytial virus (RSV) Patient Disposition: Still a Patient Condition: Stable Instructions: Antibiotic Form Prescriptions: No Action acetaminophen 325 mg Tablet 60 mg PO Q4H PRN (Reason: pain or fever) valproic acid 250 mg Capsule 750 mg PO HS alprazolam [Xanax] 0.5 mg Tablet 0.5 mg PO TID famotidine 20 mg Tablet 20 mg PO DAILY lisinopril 10 mg Tablet 10 mg PO DAILY medroxyprogesterone [Depo-Provera] 150 mg/mL Suspension 300 mg IM ONCE Rx Instructions: On the day of the month of January, Apr, Jul, Oct nystatin 1 billion unit Powder 1 unit PO BID Rx Instructions: apply to groin and buttocks aripiprazole 20 mg Tablet 20 mg PO DAILY bupropion HCl [Wellbutrin XL] 150 mg Tablet Extended Release 24 Hr 150 mg PO QAM ozicazhn-lstv-YK-calcium-mins 9 mg iron-400 mcg Tablet 1 tablet PO DAILY Follow-up/Referrals: Prakash,MD Nabil [Primary Care Provider] -
--- NOTE | 2024-10-13 23:22 | ECG_ITS ---
Test Date: 2024-10-13 23:31:56 Measurements Intervals [place] Rate: 117 P: 40 AL: 171 QRS: -89 QRSD: 122 T: 18 QT: 270 QTc: 377 Interpretive Statements SINUS TACHYCARDIA RIGHT BUNDLE BRANCH BLOCK LEFT ANTERIOR FASCICULAR BLOCK BASELINE ARTIFACT- I, II, III, AVR, AVL, AVF, V1-V6 ABNORMAL ECG Compared to ECG 08/31/2024 13:58:38 HEART RATE HAS INCREAED Electronically Signed On 10-14-2024 06:14:18 STATION MECHANIC HELPER by Duane Lezama D.O.
[2024-10-13] MEDS: LACTATED RINGERS 1,000 ML 999 ML IV CONT (23:31)
[2024-10-13 23:37] LABS: Basophils Percent Auto 0.3 % (0.2-1.2); Eosinophils Percent Auto 0.1 % (0-4.4); Hematocrit 37.8 % (37.0-47.0); Hemoglobin 12.6 g/dL (12.0-15.0); Immature Granulocyte Absolute 0.03 K/mm3 (0.00-0.031); Immature Granulocyte Percent A 0.3 % (0-0.5); Lymphocytes Absolute Auto 0.87 K/mm3 (0.9-3.2); Mean Corpuscular HGB Conc 33.3 g/dl (32-36); Mean Platelet Volume 11.5 fl (7.4-10.4); Monocytes Absolute Auto 1.2 K/mm3 (0.1-0.6); Monocytes Percent Auto 12.3 % (2.6-8.5); Neutrophils Absolute Auto 7.5 K/mm3 (1.3-6.7); Platelet Count Result 262 k/mm3 (150-375); Red Cell Distribution Width 13.9 % (11.5-14.5); White Blood Count 9.7 K/mm3 (4.5-10.0)
[2024-10-13] MEDS: IPRATROPIUM 0.5 MG/ALBUTEROL SULFATE 2.5 MG AMPUL.NEB 3 ML INHALATION (23:40)
[2024-10-13 23:41] VITALS: O2SAT 95
[2024-10-13 23:45] LABS: Alveolar/Arterial O2 Gradient 146.4 mmHg; Base Excess ABG -1.5 mEq/l (+/-2.0); Fractional Inspired Oxygen 28 %; Oxygen Content ABG 16.6 %vol (16.0-22.0); Oxygen Saturation ABG 93.9 % (95.0-100.0); PCO2 ABG 33.5 mmHg (35.0-45.0); PO2 ABG 66.1 mmHg (80.0-100.0); PO2 FiO2 Ratio Arterial Blood 2.36 %; Total Hemoglobin 12.7 g/dL (12.0-18.0); pH ABG 7.436 (7.350-7.450)
[2024-10-13 23:46] LABS: Device NASAL CANNULA; Modified Allen's Test Pass; Site Drawn RIGHT RADIAL
[2024-10-13 23:47] LABS: Lactic Acid Reflex 0.7 mmol/L (0.7-2.0)
[2024-10-13 23:50] LABS: Alanine Aminotransferase 12 U/L (6-35); Alkaline Phosphatase 95 U/L (38-126); Anion Gap 9 mmol/L (4-12); Aspartate Amino Transferase 29 U/L (14-36); Bilirubin,Total 0.5 mg/dL (0.2-1.3); Blood Urea Nitrogen 28 mg/dL (7-17); Calcium 9.3 mg/dL (8.4-10.2); Carbon Dioxide 27 mmol/L (22-30); Chloride 101 mmol/L (98-107); Estimated CRCL calculation 44 ml/min; Estimated Glomerular Filt Rate 57; Glucose 101 mg/dL (65-110); Lipase 57 U/L (23-300); Potassium 4.5 mmol/L (3.4-5.0); Sodium 137 mmol/L (137-145)
[2024-10-13 23:51] LABS: Prothrombin Time 13.5 Seconds (11.1-14.7)
[2024-10-13 23:52] LABS: Partial Thromboplastin Time 34.3 Seconds (22.3-36.8)
[2024-10-14] VITALS (28 sets, daily range): BP systolic 96–142; BP diastolic 65–94; PULSE 77–131; RESP 18–25; TEMP 36.9–39.4; O2SAT 84–100; BMI 23.5
[2024-10-14 00:03] LABS: NT Pro B Type Natriuretic Pept 176 pg/mL (19.9-100)
[2024-10-14] MEDS: ACETAMINOPHEN 650 MG SUPPOSITORY RECTAL ×2 (00:03→09:22)
[2024-10-14 00:07] LABS: Add Urine Microscopic? YES; Appearance Urine Clear (Clear); Bacteria Urine None Seen /hpf; Bilirubin Urine Negative (Negative); Blood Urine Trace (Negative); Color Urine Yellow (Yellow); Glucose Urine UA Negative (Negative); Ketones Urine 1+ mg/dL (Negative); Leukocyte Esterase Ur Negative LEU/UL (Negative); Need Manual Microscopic Reviewed; Nitrate Urine Negative (Negative); Non Pathogenic Casts 0-2; Protein Urine Negative (Negative); Specific Grav Ur 1.025 (1.001-1.035); Squamous Epithelial Cell Urine None Seen /hpf (Few); WBC Urine 0-5 /hpf (0-3); pH Urine 5.5 (5.0-9.0)
[2024-10-14 00:09] LABS: Procalcitonin 0.2 ng/mL
[2024-10-14 00:15] LABS: Influenza A QL RT-PCR Negative (Negative); Influenza B QL RT-PCR Negative (Negative); RSV RNA, RT-PCR Positive (Negative); SARS-CoV-2 RNA PCR Negative (Negative)
[2024-10-14] MEDS: LACTATED RINGERS 500 ML 999 ML IV CONT (00:57)
[2024-10-14] MEDS: CEFEPIME 1 GM/NS 50 ML 1 GM/50 ML BAG IVPB (01:32)
[2024-10-14] MEDS: VANCOMYCIN 1,500 MG/NS 500 ML 1,500 MG/500 ML BAG 250 MG IVPB (01:57)
--- NOTE | 2024-10-14 02:21 | P.HP_ITS ---
H&P: HPI History of Present Illness Date/Time: 10/14/24 02:21 Chief Complaint: Low Oxygen level Narrative: 59-year-old female with a past medical history of intellectual disability, schizoaffective disorder, major depressive disorder, dementia glaucoma and recent hospitalization for transit hypoxic respiratory failure to who presented back to the ER from [facility] skilled nursing due to hypoxia. On arrival to the ER patient is alert but oriented times 0 and does not answer questions. She continuously crying to her teeth per her baseline. On arrival to the ER she had a fever and continuous nonproductive cough. Patient was diaphoretic. She also had tachycardia. Patient reportedly had a low blood pressure at the skilled nursing but was normotensive on arrival to the ER. At the time my evaluation the patient toes were cyanotic and her oxygen saturations with a poor waveform was between 86 and 90%. She was extremely tachypneic and hot to touch. Chest x-ray per my review demonstrated hilar infiltrates versus pulmonary edema. Noncontrast CT does demonstrated possible pulmonary edema on the right but exam was limited due to motion artifact and lack of IV contrast. Patient had normal white count and electrolyte panel was stable except for a slightly increased BUN from baseline and the UA was consistent with dehydration with 1+ ketones. Patient received 1 L fluid bolus in the ER and was started on empiric antibiotic therapy with cefepime and vancomycin. However when imaging did not demonstrate obvious pneumonia on CT antibiotics were discontinued. Patient's RSV PCR came back positive indicating viral cause for the patient's respiratory symptoms. Patient did have coarse breath sounds but this seemed to be more due to upper airway transmission. Patient was producing copious amounts of mucus and sputum and was not clearing her airway. Review of Systems Review of Systems: ROS unobtainable: Yes unobtainable due to medical condition and unobtainable due to mental status [facility] Past Medical History Medical History Anxiety disorder Epilepsy Intellectual disability Major depressive disorder Schizoaffective disorder Surgical History Surgical History Surgical history unknown Family History Family History Other Unknown family medical history Social History Social History (Reviewed 10/14/24 @ 07:58 by FARAZ Wright Social History: Code status: Full code (per skilled nursing documentation) Smoking status: Unknown if ever smoked Spiritual care concerns: No Meds Home Medications and Allergies Home Medications Medication Instructions Recorded Confirmed Type acetaminophen 325 mg tablet 650 mg PO Q4H PRN pain or fever 09/27/24 10/14/24 History alprazolam 0.5 mg tablet (Xanax) 0.5 mg PO TID 09/27/24 10/14/24 History aripiprazole 20 mg tablet 20 mg PO DAILY 09/27/24 10/14/24 History bupropion HCl 150 mg 24 hr tablet, 150 mg PO QAM 09/27/24 10/14/24 History extended release (Wellbutrin XL) famotidine 20 mg tablet 20 mg PO DAILY 09/27/24 10/14/24 History lisinopril 10 mg tablet 10 mg PO DAILY 09/27/24 10/14/24 History medroxyprogesterone 150 mg/mL 150 mg IM ONCE 09/27/24 10/14/24 History intramuscular suspension (Depo-Provera) multivitamin-iron 9 mg-folic acid 1 tablet PO DAILY 09/27/24 10/14/24 History 400 mcg-calcium and minerals tablet nystatin 1 billion unit oral powder 1 unit PO BID 09/27/24 10/14/24 History valproic acid 250 mg capsule 750 mg PO HS 09/27/24 10/14/24 History Allergies Allergy/AdvReac Type Severity Reaction Status Date / Time No Known Allergies Allergy Verified 09/27/24 22:08 Vital Signs Vital Signs - 24 hr 10/13/24 23:15 10/13/24 23:41 10/14/24 01:54 Temperature 100.6 F H 99.3 F Pulse Rate 119 H Respiratory Rate 29 H Blood Pressure 136/84 Pulse Oximetry 86 L 95 Oxygen Delivery Room Air Nasal Cannula Oxygen Flow Rate 2 Exam Narrative: Weight 60.2 kg BMI 23.5 Const: Other: Acutely ill-appearing, chronically debilitated, well-nourished, appears older than stated age HENMT: Other: Patient is continuously grinding her teeth, further oral exam is not attainable, poor dentition with dental plaquing Eyes: Other: Pupils are equal and reactive, no conjunctival erythema, no conjunctival pallor no scleral icterus Neck: Other: No JVD, submandibular lymphadenopathy Resp: Other: Upper airway transmission of breath sounds, crackles bilateral bases Cardio: Other: Sinus tachycardia, 2+ bilateral radial pedal pulses GI: Other: Soft, nontender, nondistended, positive bowel sounds Skin: Other: Generalized pallor, non jaundice, cyanosis to the toes, pale nailbeds of fingers, 4-5 second cap refill, cold to touch Neuro: Other: Patient is awake and seems to be aware that staff is in the room but does not verbalize responses are follow commands, she continuously grinds her teeth, she has increased tone of flexion of the right hand in hold the left hand in extension Extrem: Other: No clubbing, no edema, cyanosis of the toes bilateral feet Psych: Other: Disheveled, awake unable to assess level of alertness, patient is nonverbal at baseline and does not follow commands further assessment is impossible H&P: Results Labs Labs: Laboratory Tests 10/13/24 23:29 10/13/24 23:32 10/13/24 10/13/24 10/13/24 23:28 23:29 23:32 WBC 9.7 RBC 4.20 Hgb 12.6 Hct 37.8 MCV 90.0 MCH 30.0 MCHC 33.3 RDW 13.9 Plt Count 262 MPV 11.5 H Immature Gran % (Auto) 0.3 Neut % (Auto) 78.0 H Lymph % (Auto) 9.0 L [place] % (Auto) 12.3 H Eos % (Auto) 0.1 Baso % (Auto) 0.3 Lymph # (Auto) 0.87 L [place] # (Auto) 1.2 H Eos # (Auto) 0.0 Baso # (Auto) 0.0 Abs Immat Gran (auto) 0.03 Absolute Neuts (auto) 7.5 H Absolute Nucleated RBC 0.000 Nucleated RBC % 0.0 PT 13.5 INR 1.0 APTT 34.3 Puncture Site ABG pH ABG pCO2 ABG pO2 ABG PO2/FiO2 Ratio ABG HCO3 ABG O2 Saturation ABG O2 Content ABG Base Excess A-a Gradient Oxyhemoglobin Total Hemoglobin O2 Delivery Device O2 Liters/Min FiO2 Sodium 137 Potassium 4.5 Chloride 101 Carbon Dioxide 27 Anion Gap 9 BUN 28 H Creatinine 1.00 Estim Creat Clear Calc 44 Estimated GFR 57 L Glucose 101 Lactic Acid 0.7 Calcium 9.3 Total Bilirubin 0.5 AST 29 ALT 12 Alkaline Phosphatase 95 C-Reactive Protein 5.0 H NT-Pro-B Natriuret Pep 176 H Total Protein 7.0 Albumin 4.0 Lipase 57 Procalcitonin 0.2 Urine Color Urine Appearance Urine pH Ur Specific [place] Urine Protein Urine Glucose (UA) Urine Ketones Ur Blood (Man) Urine Nitrate Urine Bilirubin Urine Urobilinogen Add Ur Microanalysis Leukocyte Esterase Rfl Urine RBC Urine WBC Ur Squamous Epith Cells Urine Bacteria Urine Casts Influenza A (RT-PCR) Influenza B (RT-PCR) RSV (RT-PCR) SARS-CoV-2 RNA (RT-PCR) 10/13/24 10/13/24 10/13/24 23:35 23:36 23:55 WBC RBC Hgb Hct MCV MCH MCHC RDW Plt Count MPV Immature Gran % (Auto) Neut % (Auto) Lymph % (Auto) [place] % (Auto) Eos % (Auto) Baso % (Auto) Lymph # (Auto) [place] # (Auto) Eos # (Auto) Baso # (Auto) Abs Immat Gran (auto) Absolute Neuts (auto) Absolute Nucleated RBC Nucleated RBC % PT INR APTT Puncture Site Right radial ABG pH 7.436 ABG pCO2 33.5 L ABG pO2 66.1 L ABG PO2/FiO2 Ratio 2.36 ABG HCO3 22.0 ABG O2 Saturation 93.9 L ABG O2 Content 16.6 ABG Base Excess -1.5 A-a Gradient 146.4 Oxyhemoglobin 93.0 Total Hemoglobin 12.7 O2 Delivery Device Nasal cannula O2 Liters/Min 2.0 FiO2 28 Sodium Potassium Chloride Carbon Dioxide Anion Gap BUN Creatinine Estim Creat Clear Calc Estimated GFR Glucose Lactic Acid Calcium Total Bilirubin AST ALT Alkaline Phosphatase C-Reactive Protein NT-Pro-B Natriuret Pep Total Protein Albumin Lipase Procalcitonin Urine Color Yellow Urine Appearance Clear Urine pH 5.5 Ur Specific [place] 1.025 Urine Protein Negative Urine Glucose (UA) Negative Urine Ketones 1+ H Ur Blood (Man) Trace Urine Nitrate Negative Urine Bilirubin Negative Urine Urobilinogen 1.0 Add Ur Microanalysis Reviewed Leukocyte Esterase Rfl Negative Urine RBC 3-5 H Urine WBC 0-5 Ur Squamous Epith Cells None seen Urine Bacteria None seen Urine Casts 0-2 Influenza A (RT-PCR) Negative Influenza B (RT-PCR) Negative RSV (RT-PCR) Positive A SARS-CoV-2 RNA (RT-PCR) Negative Impressions Chest X-Ray 10/14/24 06:34 IMPRESSION: Mild pulmonary vascular congestion and suggestion of mild pulmonary interstitial subpleural edema since 09/27/2024. Normal heart size. Measurements Intervals [place] Rate: 117 P: 40 CT: 171 QRS: -89 QRSD: 122 T: 18 QT: 270 QTc: 377 Interpretive Statements SINUS TACHYCARDIA RIGHT BUNDLE BRANCH BLOCK LEFT ANTERIOR FASCICULAR BLOCK BASELINE ARTIFACT- I, II, III, AVR, AVL, AVF, V1-V6 ABNORMAL ECG Compared to ECG 08/31/2024 13:58:38 HEART RATE HAS INCREAED Assessment and Plan Assessment and plan (1) Respiratory syncytial virus (RSV): Qualifiers: RSV infection type: acute laryngotracheobronchitis Qualified Code(s): J20.5 - Acute bronchitis due to respiratory syncytial virus Code(s): B33.8 - Other specified viral diseases Status: Acute (2) Acute hypoxic respiratory failure: Code(s): J96.01 - Acute respiratory failure with hypoxia Status: Acute Plan Patient's chest x-ray demonstrates pulmonary infiltrates radiology interprets as vascular congestion or pulmonary interstitial edema but given acute RSV and fever pneumonia due to viral illnesses more likely. Patient was started on scheduled nebulizer treatments and some hypertonic saline to help with mucolytic effect. The patient has thick copious secretions in posterior oropharynx. Will continue supportive care with Tylenol. Given the patient's baseline intellectual disability and mental disorders in the acute setting of infection patient may not necessarily be protecting her airway is good has previously. Will have speech therapy evaluate as the patient may also have a component of aspiration. Patient did receive 1 dose of cefepime and vancomycin in the ER prior to her viral panel demonstrating a viral cause for symptoms. Antibiotics have not been continued. Will continue Tylenol and other supportive care measures. Hospitalist MIPS Advance Care Plan I have confirmed that the patient's Advanced Care Plan is present, code status is documented, or surrogate decision maker is listed in patient medical record.: Yes Medication Reconciliation I have utilized all available resources to obtain, update and review the patients current medications (includes all prescriptions, OTC, herbals, cannabis, and nutritional supplements).: Yes
[2024-10-14] MEDS: ALBUTEROL SULFATE NEB 2.5 MG/3 ML INH 10 MG INHALATION (03:05)
[2024-10-14] MEDS: IPRATROPIUM BR 0.02% INH SOLN 0.5 MG/2.5 ML VIAL INHALATION (03:05)
[2024-10-14] MEDS: SODIUM CHLORIDE 0.9% IV 1,000 ML 70 ML IV CONT (04:15)
--- NOTE | 2024-10-14 04:39 | ADMGEN ---
This patient, Amanda Cabrera, was admitted to IMU Room 232-01 on 10/14/24 at 0413. Patient/family oriented to hospital policies and general routines including ID bracelet, bed and alarms, visiting hours, pain management, procedures, bathroom and other care routines, personal items, smoking policy, room service/diet, and visiting hours. Information on how to activate the Rapid Response Team has been discussed. Patient/Family are encouraged to report perceived risks to care and to ask questions if they do not understand what they are told or what they should do.
--- NOTE | 2024-10-14 06:04 | PC.NURSE ---
The patient's weight has so far been unable to be obtained due to malfunction with the bed scale. Will pass on to day shift as the patient finally managed to fall asleep recently.
[2024-10-14] MEDS: SODIUM CHLOR 3% 15 ML NEB (RESPIRATORY THERAPY) 6 ML INHALATION (08:01)
--- NOTE | 2024-10-14 11:13 | PCSTNOTE ---
Please refer to the Bedside Swallow Evaluation in the EMR. Please note, silent aspiration cannot be ruled out at bedside.
--- NOTE | 2024-10-14 12:02 | P.PNIM_ITS ---
Progress Note: A&P Assessment and Plan (1) Respiratory syncytial virus (RSV): Qualifiers: RSV infection type: acute laryngotracheobronchitis Qualified Code(s): J20.5 - Acute bronchitis due to respiratory syncytial virus Code(s): B33.8 - Other specified viral diseases Status: Acute (2) Acute hypoxic respiratory failure: Code(s): J96.01 - Acute respiratory failure with hypoxia Status: Acute Plan As this is 59-year-old female with past medical history of schizoaffective disorder intellectual disability dementia presents to the ED with complaint of cough and fever. Patient was recently admitted here for hypoxia possible pulm onary edema about 2 weeks ago. Patient's baseline mental status is alert and oriented times 0-1 and is nonverbal. EMS reported elevated temperature and hypoxia on room air that responded well to 6 L of oxygen. Patient has also been coughing but was nonproductive. On ED arrival she was alert and continues to crying. She was tachycardic with normal blood pressure. Patient does was cyanotic her oxygen saturation was in 86% to 90%. Chest x-ray showed mild pulmonary vascular congestion and suggest a mild pulmonary interstitial subpleural edema with normal heart size. Noncontrast CT chest was done which demonstrated diffuse bronchitis small areas of tree-in-bud opacity consistent with likely developing pneumonia and right upper and right lower lobes. Laboratory evaluation showed normal WBC count. Electrolyte panel was stable except for increased BUN from baseline and UA consistent with dehydration with 1+ ketones. Patient received 1 L fluid bolus in the ER and was started on cefep nancie and vancomycin patient's RSV came back positive. Negative for influenza and COVID. Patient was started on scheduled nebulizer treatments and some hypertonic saline to help with mucolytic effect. The patient has thick copious secretions in posterior oropharynx. Will continue supportive care with Tylenol. Given the patient's baseline intellectual disability and mental disorders in the acute setting of infection patient may not necessarily be protecting her airway is good has previously. Will have speech therapy evaluate as the patient may also have a component of aspiration. Patient did receive 1 dose of cefepime and vancomycin in the ER prior to her viral panel demonstrating a viral cause for symptoms. Antibiotics have since been discontinued. Will continue Tylenol and other supportive care measures. Recent echo 09/28/2024 with EF 60-65% grade 1 diastolic dysfunction. Mild tricuspid regurgitation. BNP 176. Will order release doxycycline for atypical coverage DVT prophylaxis Code status full code Subjective Date/time seen: 10/14/24 12:02 Interval history: Chart reviewed. Discussed with the nursing staff. Febrile. Tachycardia has improved. Patient unresponsive. Review of Systems Review of Systems: ROS unobtainable: Yes unobtainable due to mental status Exam Narrative: GENERAL: Well-appearing, well-nourished, and in no acute distress. HEAD: Normocephalic, atraumatic. EYES: PERRLA and EOMI. ENT: Significant mucus drainage from the bilateral nares. NECK: Supple. No adenopathy or masses. CHEST: Coarse breath sounds heard bilaterally. No respiratory distress HEART: Tachycardic sinus tachycardia on telemetry. No murmur heard. Normal peripheral pulses. ABDOMEN: Soft, nontender, nondistended, normal active bowel sounds. MSK: Normal range of motion. No edema. SKIN: Warm, dry, no rash. NEURO: Lethargic alert and oriented times 0 at baseline PSYCH: Normal mood and affect. Objective Data Vital Signs Vital Signs: Vital Signs - 24 hr 10/13/24 23:15 10/13/24 23:41 10/14/24 01:54 Temperature 100.6 F H 99.3 F Pulse Rate 119 H Respiratory Rate 29 H Blood Pressure 136/84 Pulse Oximetry 86 L 95 Oxygen Delivery Room Air Nasal Cannula Oxygen Flow Rate 2 10/14/24 00:45 10/14/24 01:30 10/14/24 03:05 Temperature Pulse Rate 85 85 112 H Respiratory Rate 24 H 25 H 25 H Blood Pressure 119/70 138/73 Pulse Oximetry 98 94 Oxygen Delivery Oxygen Flow Rate 10/14/24 03:54 10/14/24 04:42 10/14/24 06:00 Temperature Pulse Rate 89 117 H Respiratory Rate 23 H Blood Pressure 142/76 H Pulse Oximetry 100 100 Oxygen Delivery Nasal Cannula Oxygen Flow Rate 4 10/14/24 08:09 10/14/24 08:05 10/14/24 08:20 Temperature Pulse Rate 114 H 120 H Respiratory Rate 22 H 22 H Blood Pressure Pulse Oximetry 84 L Oxygen Delivery Nasal Cannula Oxygen Flow Rate 4 10/14/24 08:00 10/14/24 08:10 10/14/24 09:22 Temperature 102.9 F H 102.9 F H Pulse Rate 115 H Respiratory Rate 18 Blood Pressure 127/94 H Pulse Oximetry 100 90 Oxygen Delivery Nasal Cannula Oxygen Flow Rate 6 Intake/Output Intake/Output: Intake & Output 10/11/24 10/12/24 10/13/24 10/14/24 23:59 23:59 23:59 23:59 Intake Total 2049 Balance 2049 Meds/Results Medications: Active Medications Generic Name Dose Route Start Last Admin Trade Name Freq PRN Reason Stop Dose Admin Acetaminophen 650 mg 10/13/24 23:44 10/14/24 09:22 Acetaminophen 650 Mg Suppository RECTAL 650 mg Q6H PRN Administration Mild Pain (1-3) or Fever Acetaminophen 650 mg 10/14/24 08:04 Acetaminophen 325 Mg Tablet PO Q4H PRN pain 1-3 or fever Alprazolam 0.5 mg 10/14/24 09:00 10/14/24 09:59 Alprazolam (*Crx) 0.5 Mg Tablet PO Not Given TID MARLON Aripiprazole 20 mg 10/14/24 09:00 10/14/24 09:59 Aripiprazole 10 Mg Tablet PO Not Given QAM MARLON Bupropion HCl 150 mg 10/14/24 09:00 10/14/24 09:59 Bupropion Hcl Xl (24 Hr) 150 Mg Tabcr PO Not Given QAM MARLON Famotidine 20 mg 10/14/24 09:00 10/14/24 09:59 Famotidine 20 Mg Tablet PO Not Given DAILY MARLON Vancomycin HCl 1,250 mg in 250 mls @ 166.667 mls/hr 10/15/24 02:00 Vancomycin 1,250 Mg/Ns 250 Ml IVPB Q24H MARLON Sodium Chloride 1,000 mls @ 70 mls/hr 10/14/24 02:20 10/14/24 04:15 Normal Saline Iv IV CONT 10/14/24 16:37 70 mls/hr .[id number] MARLON Administration Lisinopril 10 mg 10/14/24 09:00 10/14/24 09:59 Lisinopril 10 Mg Tablet PO Not Given DAILY MARLON Multivitamins/Calcium 1 tablet 10/14/24 09:00 10/14/24 09:59 Therapeutic Multivitamins/Minerals Tab (*Bkc) PO Not Given DAILY MARLON Sodium Chloride 6 ml 10/14/24 09:00 10/14/24 08:01 Sodium Chlor 3% 15 Ml Neb (Respiratory Therapy) INHALATION 10/16/24 08:59 6 ml BID MARLON Administration Valproic Acid 750 mg 10/14/24 21:00 Valproic Acid 250 Mg Capsule PO HS ON LICENSE OF [facility] Radiology Results: ITS Impressions Chest X-Ray 10/14/24 06:34 IMPRESSION: Mild pulmonary vascular congestion and suggestion of mild pulmonary interstitial subpleural edema since 09/27/2024. Normal heart size. Chest CT 10/14/24 09:39 IMPRESSION: 1. Diffuse bronchitis with small regions of tree-in-bud opacity consistent with likely developing pneumonia in the right upper and right lower lobes. Labs Labs: Laboratory Results - last 24 hr 10/13/24 10/13/24 10/13/24 23:28 23:29 23:32 WBC 9.7 RBC 4.20 Hgb 12.6 Hct 37.8 MCV 90.0 MCH 30.0 MCHC 33.3 RDW 13.9 Plt Count 262 MPV 11.5 H Immature Gran % (Auto) 0.3 Neut % (Auto) 78.0 H Lymph % (Auto) 9.0 L [place] % (Auto) 12.3 H Eos % (Auto) 0.1 Baso % (Auto) 0.3 Lymph # (Auto) 0.87 L [place] # (Auto) 1.2 H Eos # (Auto) 0.0 Baso # (Auto) 0.0 Abs Immat Gran (auto) 0.03 Absolute Neuts (auto) 7.5 H Absolute Nucleated RBC 0.000 Nucleated RBC % 0.0 PT 13.5 INR 1.0 APTT 34.3 Puncture Site ABG pH ABG pCO2 ABG pO2 ABG PO2/FiO2 Ratio ABG HCO3 ABG O2 Saturation ABG O2 Content ABG Base Excess A-a Gradient Oxyhemoglobin Total Hemoglobin O2 Delivery Device O2 Liters/Min FiO2 Sodium 137 Potassium 4.5 Chloride 101 Carbon Dioxide 27 Anion Gap 9 BUN 28 H Creatinine 1.00 Estim Creat Clear Calc 44 Estimated GFR 57 L Glucose 101 Lactic Acid 0.7 Calcium 9.3 Total Bilirubin 0.5 AST 29 ALT 12 Alkaline Phosphatase 95 C-Reactive Protein 5.0 H NT-Pro-B Natriuret Pep 176 H Total Protein 7.0 Albumin 4.0 Lipase 57 Procalcitonin 0.2 Urine Color Urine Appearance Urine pH Ur Specific [place] Urine Protein Urine Glucose (UA) Urine Ketones Ur Blood (Man) Urine Nitrate Urine Bilirubin Urine Urobilinogen Add Ur Microanalysis Leukocyte Esterase Rfl Urine RBC Urine WBC Ur Squamous Epith Cells Urine Bacteria Urine Casts Influenza A (RT-PCR) Influenza B (RT-PCR) RSV (RT-PCR) SARS-CoV-2 RNA (RT-PCR) 10/13/24 10/13/24 10/13/24 23:35 23:36 23:55 WBC RBC Hgb Hct MCV MCH MCHC RDW Plt Count MPV Immature Gran % (Auto) Neut % (Auto) Lymph % (Auto) [place] % (Auto) Eos % (Auto) Baso % (Auto) Lymph # (Auto) [place] # (Auto) Eos # (Auto) Baso # (Auto) Abs Immat Gran (auto) Absolute Neuts (auto) Absolute Nucleated RBC Nucleated RBC % PT INR APTT Puncture Site Right radial ABG pH 7.436 ABG pCO2 33.5 L ABG pO2 66.1 L ABG PO2/FiO2 Ratio 2.36 ABG HCO3 22.0 ABG O2 Saturation 93.9 L ABG O2 Content 16.6 ABG Base Excess -1.5 A-a Gradient 146.4 Oxyhemoglobin 93.0 Total Hemoglobin 12.7 O2 Delivery Device Nasal cannula O2 Liters/Min 2.0 FiO2 28 Sodium Potassium Chloride Carbon Dioxide Anion Gap BUN Creatinine Estim Creat Clear Calc Estimated GFR Glucose Lactic Acid Calcium Total Bilirubin AST ALT Alkaline Phosphatase C-Reactive Protein NT-Pro-B Natriuret Pep Total Protein Albumin Lipase Procalcitonin Urine Color Yellow Urine Appearance Clear Urine pH 5.5 Ur Specific [place] 1.025 Urine Protein Negative Urine Glucose (UA) Negative Urine Ketones 1+ H Ur Blood (Man) Trace Urine Nitrate Negative Urine Bilirubin Negative Urine Urobilinogen 1.0 Add Ur Microanalysis Reviewed Leukocyte Esterase Rfl Negative Urine RBC 3-5 H Urine WBC 0-5 Ur Squamous Epith Cells None seen Urine Bacteria None seen Urine Casts 0-2 Influenza A (RT-PCR) Negative Influenza B (RT-PCR) Negative RSV (RT-PCR) Positive A SARS-CoV-2 RNA (RT-PCR) Negative
[2024-10-14] MEDS: DOXYCYCLINE 100 MG/NS 100 ML 100 MG/100 ML BAG IVPB ×2 (13:43→23:30)
[2024-10-14 15:25] LABS: MRSA (PCR) NOT DETECTED (NOT DETECTE)
[2024-10-14] MEDS: IPRATROPIUM 0.5 MG/ALBUTEROL SULFATE 2.5 MG AMPUL.NEB 3 ML INHALATION ×2 (16:57→21:11)
[2024-10-14] MEDS: SCOPOLAMINE 1 MG PATCH 1 PATCH TRANSDERM (18:22)
[2024-10-14] MEDS: CEFEPIME 2 GM/NS 50 ML 2 GM/50 ML BAG IVPB (18:22)
[2024-10-14] MEDS: FUROSEMIDE INJ 40 MG/4 ML VIAL 20 MG IV PUSH (18:22)
[2024-10-15] VITALS (19 sets, daily range): BP systolic 113–149; BP diastolic 74–88; PULSE 67–100; RESP 20–24; TEMP 36.7–37.1; O2SAT 90–100
[2024-10-15] MEDS: VANCOMYCIN 1,250 MG/NS 250 ML 1,250 MG/250 ML BAG 166.67 MG IVPB (02:00)
[2024-10-15] MEDS: IPRATROPIUM 0.5 MG/ALBUTEROL SULFATE 2.5 MG AMPUL.NEB 3 ML INHALATION ×3 (02:09→22:29)
[2024-10-15 05:26] LABS: Basophils Percent Auto 0.3 % (0.2-1.2); Hematocrit 32.2 % (37.0-47.0); Hemoglobin 10.3 g/dL (12.0-15.0); Immature Granulocyte Absolute 0.01 K/mm3 (0.00-0.031); Immature Granulocyte Percent A 0.1 % (0-0.5); Lymphocytes Absolute Auto 0.75 K/mm3 (0.9-3.2); Lymphocytes Percent Auto 10.1 % (18.3-44.2); Mean Corpuscular Hemoglobin 30.2 pg (26-34); Mean Corpuscular Volume 94.4 fl (80-100); Mean Platelet Volume 11.7 fl (7.4-10.4); Monocytes Absolute Auto 0.8 K/mm3 (0.1-0.6); Monocytes Percent Auto 10.3 % (2.6-8.5); Neutrophils Absolute Auto 5.9 K/mm3 (1.3-6.7); Neutrophils Percent Auto 79.2 % (45.5-73.1); Platelet Count Result 183 k/mm3 (150-375); Red Blood Count 3.41 M/mm3 (4.2-5.4); Red Cell Distribution Width 14.1 % (11.5-14.5); White Blood Count 7.4 K/mm3 (4.5-10.0)
[2024-10-15 05:50] LABS: Alanine Aminotransferase 11 U/L (6-35); Alkaline Phosphatase 65 U/L (38-126); Anion Gap 9 mmol/L (4-12); Aspartate Amino Transferase 36 U/L (14-36); Bilirubin,Total 0.4 mg/dL (0.2-1.3); Blood Urea Nitrogen 26 mg/dL (7-17); Calcium 8.7 mg/dL (8.4-10.2); Carbon Dioxide 21 mmol/L (22-30); Chloride 112 mmol/L (98-107); Estimated CRCL calculation 44 ml/min; Estimated Glomerular Filt Rate 57; Glucose 60 mg/dL (65-110); Magnesium 1.9 mg/dL (1.6-2.3); Potassium 3.7 mmol/L (3.4-5.0); Sodium 142 mmol/L (137-145)
[2024-10-15 06:00] LABS: Glucose Point of Care 65 mg/dl (65-105)
[2024-10-15] MEDS: DEXTROSE 50% 25 GM/50 ML SYRINGE IV PUSH (06:29)
[2024-10-15] MEDS: CEFEPIME 2 GM/NS 50 ML 2 GM/50 ML BAG IVPB ×2 (06:30→17:29)
[2024-10-15 06:47] LABS: Glucose Point of Care 125 mg/dl (65-105)
[2024-10-15 08:11] LABS: Glucose Point of Care 93 mg/dl (65-105)
[2024-10-15] MEDS: DEXTROSE 5% 1,000 ML 1,000 ML 50 ML IV CONT (09:02)
--- NOTE | 2024-10-15 11:57 | P.PNIM_ITS ---
Progress Note: A&P Assessment and Plan (1) Respiratory syncytial virus (RSV): Qualifiers: RSV infection type: acute laryngotracheobronchitis Qualified Code(s): J20.5 - Acute bronchitis due to respiratory syncytial virus Code(s): B33.8 - Other specified viral diseases Status: Acute (2) Acute hypoxic respiratory failure: Code(s): J96.01 - Acute respiratory failure with hypoxia Status: Acute Plan As this is 59-year-old female with past medical history of schizoaffective disorder intellectual disability dementia presents to the ED with complaint of cough and fever. Patient was recently admitted here for hypoxia possible pulm onary edema about 2 weeks ago. Patient's baseline mental status is alert and oriented times 0-1 and is nonverbal. EMS reported elevated temperature and hypoxia on room air that responded well to 6 L of oxygen. Patient has also been coughing but was nonproductive. On ED arrival she was alert and continues to crying. She was tachycardic with normal blood pressure. Patient does was cyanotic her oxygen saturation was in 86% to 90%. Chest x-ray showed mild pulmonary vascular congestion and suggest a mild pulmonary interstitial subpleural edema with normal heart size. Noncontrast CT chest was done which demonstrated diffuse bronchitis small areas of tree-in-bud opacity consistent with likely developing pneumonia and right upper and right lower lobes. Laboratory evaluation showed normal WBC count. Electrolyte panel was stable except for increased BUN from baseline and UA consistent with dehydration with 1+ ketones. Patient received 1 L fluid bolus in the ER and was started on cefep nancie and vancomycin patient's RSV came back positive. Negative for influenza and COVID. Patient was started on scheduled nebulizer treatments and some hypertonic saline to help with mucolytic effect. The patient has thick copious secretions in posterior oropharynx. Will continue supportive care with Tylenol. Given the patient's baseline intellectual disability and mental disorders in the acute setting of infection patient may not necessarily be protecting her airway is good has previously. Will have speech therapy evaluate as the patient may also have a component of aspiration. Patient did receive 1 dose of cefepime and vancomycin in the ER prior to her viral panel demonstrating a viral cause for symptoms. Antibiotics have since been discontinued. With ongoing fever restarted on cefepime and doxycycline. Nasal MRSA is negative and hence vancomycin discontinued. Will continue Tylenol and other supportive care measures. Recent echo 09/28/2024 with EF 60-65% grade 1 diastolic dysfunction. Mild tricuspid regurgitation. BNP 176. Hypoglycemia due to NPO status. D5 water started. DVT prophylaxis Lovenox Code status full code Subjective Date/time seen: 10/15/24 11:57 Interval history: Patient needed suctioning last night. With improvement in her oxygen status. Patient is awake today. Follow some commands. Remains afebrile. Review of Systems Review of Systems: ROS unobtainable: Yes unobtainable due to mental status Exam Narrative: GENERAL: Well-appearing, well-nourished, and in no acute distress. More awake today HEAD: Normocephalic, atraumatic. EYES: PERRLA and EOMI. ENT: Significant mucus drainage from the bilateral nares. NECK: Supple. No adenopathy or masses. CHEST: Coarse breath sounds heard bilaterally. No respiratory distress HEART: Regular rate and rhythm sinus on telemetry. No murmur heard. Normal peripheral pulses. ABDOMEN: Soft, nontender, nondistended, normal active bowel sounds. MSK: Normal range of motion. No edema. SKIN: Warm, dry, no rash. NEURO: More awake and oriented times 0 at baseline PSYCH: Could not be evaluated. Objective Data Vital Signs Vital Signs: Vital Signs - 24 hr 10/14/24 12:00 10/14/24 12:00 10/14/24 14:00 Temperature 99.5 F Pulse Rate 101 H 95 102 H Respiratory Rate 20 Blood Pressure 126/84 Pulse Oximetry 94 Oxygen Delivery Oxygen Flow Rate 10/14/24 15:50 10/14/24 16:57 10/14/24 17:08 Temperature 102.3 F H Pulse Rate 131 H 113 H 120 H Respiratory Rate 24 H 22 H 22 H Blood Pressure 132/65 Pulse Oximetry 95 Oxygen Delivery Oxygen Flow Rate 10/14/24 16:00 10/14/24 18:00 10/14/24 12:00 Temperature Pulse Rate 129 H 102 H Respiratory Rate Blood Pressure Pulse Oximetry 94 Oxygen Delivery Nasal Cannula Oxygen Flow Rate 4 10/14/24 16:00 10/14/24 21:11 10/14/24 21:12 Temperature 98.9 F Pulse Rate 91 93 Respiratory Rate 24 H 22 H Blood Pressure 105/86 Pulse Oximetry 95 97 Oxygen Delivery Nasal Cannula Oxygen Flow Rate 6 10/14/24 21:23 10/14/24 21:23 10/14/24 20:00 Temperature Pulse Rate 95 93 Respiratory Rate 22 H Blood Pressure Pulse Oximetry 96 96 Oxygen Delivery High Flow Nasal Cannula Nasal Cannula Oxygen Flow Rate 10 6 10/14/24 20:00 10/14/24 22:00 10/14/24 23:36 Temperature 98.5 F Pulse Rate 98 78 77 Respiratory Rate 24 H Blood Pressure 96/71 L Pulse Oximetry 99 Oxygen Delivery Oxygen Flow Rate 10/15/24 02:09 10/15/24 02:20 10/15/24 05:19 Temperature 98.2 F Pulse Rate 71 73 71 Respiratory Rate 22 H 22 H 24 H Blood Pressure 113/74 Pulse Oximetry 100 Oxygen Delivery Oxygen Flow Rate 10/15/24 00:00 10/15/24 04:00 10/15/24 00:00 Temperature Pulse Rate 72 68 Respiratory Rate Blood Pressure Pulse Oximetry 99 Oxygen Delivery Nasal Cannula Oxygen Flow Rate 6 10/15/24 04:00 10/15/24 08:00 10/15/24 06:00 Temperature 98.1 F Pulse Rate 78 70 Respiratory Rate 20 Blood Pressure 119/88 Pulse Oximetry 100 100 Oxygen Delivery Nasal Cannula Oxygen Flow Rate 6 10/15/24 09:36 10/15/24 09:37 10/15/24 09:37 Temperature Pulse Rate 76 93 77 Respiratory Rate 22 H 22 H Blood Pressure Pulse Oximetry 96 Oxygen Delivery High Flow Nasal Cannula Oxygen Flow Rate 10 Intake/Output Intake/Output: Intake & Output 10/12/24 10/13/24 10/14/24 10/15/24 23:59 23:59 23:59 23:59 Intake Total 2200 Output Total 3 Balance 2200 -3 Meds/Results Medications: Active Medications Generic Name Dose Route Start Last Admin Trade Name Freq PRN Reason Stop Dose Admin Acetaminophen 650 mg 10/13/24 23:44 10/14/24 09:22 Acetaminophen 650 Mg Suppository RECTAL 650 mg Q6H PRN Administration Mild Pain (1-3) or Fever Acetaminophen 650 mg 10/14/24 08:04 Acetaminophen 325 Mg Tablet PO Q4H PRN pain 1-3 or fever Albuterol/Ipratropium 3 ml 10/14/24 16:57 10/15/24 08:36 Ipratropium 0.5 Mg/Albuterol Sulfate 2.5 Mg Ampul.Neb 3 Ml INHALATION 3 ml Q6HRT MARLON Administration Alprazolam 0.5 mg 10/14/24 09:00 10/15/24 09:16 Alprazolam (*Crx) 0.5 Mg Tablet PO Not Given TID MARLON Aripiprazole 20 mg 10/14/24 09:00 10/15/24 09:17 Aripiprazole 10 Mg Tablet PO Not Given QAM MARLON Bupropion HCl 150 mg 10/14/24 09:00 10/15/24 09:17 Bupropion Hcl Xl (24 Hr) 150 Mg Tabcr PO Not Given QAM MARLON Dextrose 12.5 gm 10/15/24 06:03 10/15/24 06:29 Dextrose 50% 25 Gm/50 Ml Syringe IV PUSH 12.5 gm PRN PRN Administration Hypoglycemia Protocol Famotidine 20 mg 10/14/24 09:00 10/15/24 09:17 Famotidine 20 Mg Tablet PO Not Given DAILY MARLON Glucose 15 gm 10/15/24 06:03 Glucose Oral Gel 15 Gm Of Glucse In 37.5 Gm Tube PO PRN PRN Hypoglycemia Protocol Vancomycin HCl 1,250 mg in 250 mls @ 166.667 mls/hr 10/15/24 02:00 10/15/24 02:00 Vancomycin 1,250 Mg/Ns 250 Ml IVPB 166.67 mls/hr Q24H MARLON Administration Doxycycline Hyclate 100 mg in 100 mls @ 100 mls/hr 10/14/24 12:15 10/14/24 23:30 Vibramycin 100 Mg/Ns 100 Ml IVPB 100 mls/hr BID@[id number] MARLON Administration Cefepime HCl 2 gm in 50 mls @ 100 mls/hr 10/14/24 18:00 10/15/24 06:30 Maxipime 2 Gm/Ns 50 Ml IVPB 100 mls/hr Q12H MARLON Administration Dextrose 1,000 mls @ 100 mls/hr 10/15/24 06:03 Dextrose 5% 1,000 Ml IVPB PRN PRN Hypoglycemia Protocol Dextrose 1,000 mls @ 50 mls/hr 10/15/24 08:50 10/15/24 09:02 Dextrose 5% 1,000 Ml IV CONT 50 mls/hr .Q20H MARLON Administration Lisinopril 10 mg 10/14/24 09:00 10/15/24 09:17 Lisinopril 10 Mg Tablet PO Not Given DAILY MARLON Multivitamins/Calcium 1 tablet 10/14/24 09:00 10/15/24 09:17 Therapeutic Multivitamins/Minerals Tab (*Bkc) PO Not Given DAILY MARLON Scopolamine 1 patch 10/14/24 17:00 10/14/24 18:22 Scopolamine 1 Mg Patch TRANSDERM 1 patch Q72HR MARLON Administration Sodium Chloride 6 ml 10/14/24 09:00 10/14/24 19:53 Sodium Chlor 3% 15 Ml Neb (Respiratory Therapy) INHALATION 10/16/24 08:59 Not Given BID MARLON Valproic Acid 750 mg 10/14/24 21:00 10/14/24 20:36 Valproic Acid 250 Mg Capsule PO Not Given HS [facility] Radiology Results: ITS Impressions Chest CT 10/14/24 09:39 IMPRESSION: 1. Diffuse bronchitis with small regions of tree-in-bud opacity consistent with likely developing pneumonia in the right upper and right lower lobes. Chest X-Ray 10/14/24 17:42 IMPRESSION: Bilateral interstitial thickening which may indicate pneumonitis. Clinical correlation advised. Underlying fibrotic changes is not excluded. Labs Labs: Laboratory Results - last 24 hr 10/14/24 10/15/24 10/15/24 13:55 05:14 05:57 WBC 7.4 RBC 3.41 L Hgb 10.3 L Hct 32.2 L MCV 94.4 MCH 30.2 MCHC 32.0 RDW 14.1 Plt Count 183 MPV 11.7 H Immature Gran % (Auto) 0.1 Neut % (Auto) 79.2 H Lymph % (Auto) 10.1 L [place] % (Auto) 10.3 H Eos % (Auto) 0.0 Baso % (Auto) 0.3 Lymph # (Auto) 0.75 L [place] # (Auto) 0.8 H Eos # (Auto) 0.0 Baso # (Auto) 0.0 Abs Immat Gran (auto) 0.01 Absolute Neuts (auto) 5.9 Absolute Nucleated RBC 0.000 Nucleated RBC % 0.0 Sodium 142 Potassium 3.7 Chloride 112 H Carbon Dioxide 21 L Anion Gap 9 BUN 26 H Creatinine 1.00 Estim Creat Clear Calc 44 Estimated GFR 57 L Glucose 60 L POC Capillary Glucose 65 Calcium 8.7 Magnesium 1.9 Total Bilirubin 0.4 AST 36 ALT 11 Alkaline Phosphatase 65 Total Protein 6.0 L Albumin 3.0 L Nasal MRSA (PCR) Not detected 10/15/24 10/15/24 06:39 08:02 WBC RBC Hgb Hct MCV MCH MCHC RDW Plt Count MPV Immature Gran % (Auto) Neut % (Auto) Lymph % (Auto) [place] % (Auto) Eos % (Auto) Baso % (Auto) Lymph # (Auto) [place] # (Auto) Eos # (Auto) Baso # (Auto) Abs Immat Gran (auto) Absolute Neuts (auto) Absolute Nucleated RBC Nucleated RBC % Sodium Potassium Chloride Carbon Dioxide Anion Gap BUN Creatinine Estim Creat Clear Calc Estimated GFR Glucose POC Capillary Glucose 125 H 93 Calcium Magnesium Total Bilirubin AST ALT Alkaline Phosphatase Total Protein Albumin Nasal MRSA (PCR)
[2024-10-15 12:39] LABS: Glucose Point of Care 75 mg/dl (65-105)
[2024-10-15] MEDS: ENOXAPARIN 40 MG/0.4 ML SYRINGE SUB-Q (13:09)
[2024-10-15] MEDS: DOXYCYCLINE 100 MG/NS 100 ML 100 MG/100 ML BAG IVPB ×2 (13:09→23:40)
--- NOTE | 2024-10-15 16:30 | PCRCNOTE ---
Window of time for administration has passed. See next scheduled administration.
[2024-10-15 17:05] LABS: Glucose Point of Care 78 mg/dl (65-105)
[2024-10-15] MEDS: VALPROIC ACID 250 MG CAPSULE 750 MG PO (20:30)
[2024-10-15 21:05] LABS: Glucose Point of Care 127 mg/dl (65-105)
[2024-10-15] MEDS: ALPRAZolam (*CRX) 0.5 MG TABLET PO (21:56)
[2024-10-16] VITALS (22 sets, daily range): BP systolic 114–148; BP diastolic 78–97; PULSE 66–93; RESP 16–24; TEMP 36.6–37.2; O2SAT 94–100
[2024-10-16 00:19] LABS: Glucose Point of Care 97 mg/dl (65-105)
[2024-10-16 02:15] LABS: Vancomycin Trough 10.9 ug/mL (10.0-20.0)
[2024-10-16] MEDS: IPRATROPIUM 0.5 MG/ALBUTEROL SULFATE 2.5 MG AMPUL.NEB 3 ML INHALATION ×4 (03:41→19:42)
[2024-10-16] MEDS: VANCOMYCIN 1,750 MG/NS 500 ML 1,750 MG/500 ML BAG 250 MG IVPB (03:45)
[2024-10-16] MEDS: CEFEPIME 2 GM/NS 50 ML 2 GM/50 ML BAG IVPB ×2 (05:05→17:02)
[2024-10-16] MEDS: DEXTROSE 5% 1,000 ML 1,000 ML 50 ML IV CONT (05:05)
[2024-10-16 06:01] LABS: Basophils Percent Auto 0.3 % (0.2-1.2); Eosinophils Percent Auto 0.5 % (0-4.4); Hematocrit 29.5 % (37.0-47.0); Hemoglobin 9.7 g/dL (12.0-15.0); Immature Granulocyte Absolute 0.02 K/mm3 (0.00-0.031); Immature Granulocyte Percent A 0.3 % (0-0.5); Lymphocytes Absolute Auto 1.32 K/mm3 (0.9-3.2); Lymphocytes Percent Auto 21.3 % (18.3-44.2); Mean Corpuscular HGB Conc 32.9 g/dl (32-36); Mean Corpuscular Hemoglobin 30.3 pg (26-34); Mean Corpuscular Volume 92.2 fl (80-100); Mean Platelet Volume 11.6 fl (7.4-10.4); Monocytes Absolute Auto 0.8 K/mm3 (0.1-0.6); Monocytes Percent Auto 12.4 % (2.6-8.5); Neutrophils Percent Auto 65.2 % (45.5-73.1); Platelet Count Result 189 k/mm3 (150-375); Red Cell Distribution Width 13.9 % (11.5-14.5); White Blood Count 6.2 K/mm3 (4.5-10.0)
[2024-10-16 06:13] LABS: Alanine Aminotransferase 12 U/L (6-35); Albumin Level 2.8 g/dL (3.5-5.1); Alkaline Phosphatase 66 U/L (38-126); Anion Gap 5 mmol/L (4-12); Aspartate Amino Transferase 35 U/L (14-36); Bilirubin,Total 0.4 mg/dL (0.2-1.3); Blood Urea Nitrogen 23 mg/dL (7-17); Calcium 8.3 mg/dL (8.4-10.2); Carbon Dioxide 23 mmol/L (22-30); Chloride 112 mmol/L (98-107); Estimated CRCL calculation 48 ml/min; Estimated Glomerular Filt Rate > 60; Glucose 84 mg/dL (65-110); Magnesium 1.8 mg/dL (1.6-2.3); Potassium 3.4 mmol/L (3.4-5.0); Sodium 140 mmol/L (137-145)
[2024-10-16] MEDS: THERAPEUTIC MULTIVITAMINS/MINERALS TAB (*BKC) 1 TABLET PO (09:58)
[2024-10-16] MEDS: buPROPion HCL XL (24 HR) 150 MG TABCR PO (09:58)
[2024-10-16] MEDS: lisinopriL 10 MG TABLET PO (09:58)
[2024-10-16] MEDS: FAMOTIDINE 20 MG TABLET PO (10:00)
[2024-10-16] MEDS: ARIPiprazole 10 MG TABLET 20 MG PO (10:00)
[2024-10-16] MEDS: ENOXAPARIN 40 MG/0.4 ML SYRINGE SUB-Q (10:01)
[2024-10-16] MEDS: ALPRAZolam (*CRX) 0.5 MG TABLET PO ×3 (10:01→16:43)
[2024-10-16] MEDS: DOXYCYCLINE 100 MG/NS 100 ML 100 MG/100 ML BAG IVPB ×2 (10:18→23:26)
--- NOTE | 2024-10-16 11:32 | PCSTNOTE ---
Please refer to the Bedside Swallow Evaluation in the EMR. Please note, silent aspiration cannot be ruled out at bedside.
[2024-10-16 12:26] LABS: Glucose Point of Care 101 mg/dl (65-105)
--- NOTE | 2024-10-16 13:17 | P.PNIM_ITS ---
Progress Note: A&P Assessment and Plan (1) Respiratory syncytial virus (RSV): Qualifiers: RSV infection type: acute laryngotracheobronchitis Qualified Code(s): J20.5 - Acute bronchitis due to respiratory syncytial virus Code(s): B33.8 - Other specified viral diseases Status: Acute (2) Acute hypoxic respiratory failure: Code(s): J96.01 - Acute respiratory failure with hypoxia Status: Acute Plan As this is 59-year-old female with past medical history of schizoaffective disorder intellectual disability dementia presents to the ED with complaint of cough and fever. Patient was recently admitted here for hypoxia possible pulm onary edema about 2 weeks ago. Patient's baseline mental status is alert and oriented times 0-1 and is nonverbal. EMS reported elevated temperature and hypoxia on room air that responded well to 6 L of oxygen. Patient has also been coughing but was nonproductive. On ED arrival she was alert and continues to crying. She was tachycardic with normal blood pressure. Patient does was cyanotic her oxygen saturation was in 86% to 90%. Chest x-ray showed mild pulmonary vascular congestion and suggest a mild pulmonary interstitial subpleural edema with normal heart size. Noncontrast CT chest was done which demonstrated diffuse bronchitis small areas of tree-in-bud opacity consistent with likely developing pneumonia and right upper and right lower lobes. Laboratory evaluation showed normal WBC count. Electrolyte panel was stable except for increased BUN from baseline and UA consistent with dehydration with 1+ ketones. Patient received 1 L fluid bolus in the ER and was started on cefep nancie and vancomycin patient's RSV came back positive. Negative for influenza and COVID. Patient was started on scheduled nebulizer treatments and some hypertonic saline to help with mucolytic effect. The patient has thick copious secretions in posterior oropharynx. Will continue supportive care with Tylenol. Given the patient's baseline intellectual disability and mental disorders in the acute setting of infection patient may not necessarily be protecting her airway is good has previously. Will have speech therapy evaluate as the patient may also have a component of aspiration. Patient did receive 1 dose of cefepime and vancomycin in the ER prior to her viral panel demonstrating a viral cause for symptoms. Antibiotics have since been discontinued. With ongoing fever restarted on cefepime and doxycycline. Nasal MRSA is negative and hence vancomycin discontinued. Will continue Tylenol and other supportive care measures. Recent echo 09/28/2024 with EF 60-65% grade 1 diastolic dysfunction. Mild tricuspid regurgitation. BNP 176. Hypoglycemia due to NPO status. D5 water started. Now more awake and past swallow evaluation. Started on oral diet. Can discontinue D5 water infusion once starts eating DVT prophylaxis Lovenox Code status full code Subjective Date/time seen: 10/16/24 13:17 Interval history: Patient more awake. Remains afebrile. Oxygen requirement is down to 4 L. was able to take her pills past swallow evaluation. Starting on a diet today. Review of Systems Review of Systems: ROS unobtainable: Yes unobtainable due to mental status Exam Narrative: GENERAL: Well-appearing, well-nourished, and in no acute distress. More awake HEAD: Normocephalic, atraumatic. EYES: PERRLA and EOMI. ENT: Significant mucus drainage from the bilateral nares. NECK: Supple. No adenopathy or masses. CHEST: Coarse breath sounds heard bilaterally. No respiratory distress HEART: Regular rate and rhythm sinus on telemetry. No murmur heard. Normal peripheral pulses. ABDOMEN: Soft, nontender, nondistended, normal active bowel sounds. MSK: Normal range of motion. No edema. SKIN: Warm, dry, no rash. NEURO: More awake and oriented times 0 at baseline PSYCH: Could not be evaluated. Objective Data Vital Signs Vital Signs: Vital Signs - 24 hr 10/15/24 14:00 10/15/24 16:00 10/15/24 16:00 Temperature Pulse Rate 84 85 Respiratory Rate Blood Pressure Pulse Oximetry 92 Oxygen Delivery Nasal Cannula Oxygen Flow Rate 8 Fraction of Inspired Oxygen 10/15/24 16:00 10/15/24 18:00 10/15/24 20:23 Temperature 98.5 F 98.7 F Pulse Rate 89 96 84 Respiratory Rate 24 H 24 H Blood Pressure 139/88 131/76 Pulse Oximetry 94 90 Oxygen Delivery Oxygen Flow Rate Fraction of Inspired Oxygen 10/15/24 22:30 10/15/24 20:00 10/16/24 00:00 Temperature 98.8 F Pulse Rate 76 71 Respiratory Rate 20 24 H Blood Pressure 127/78 Pulse Oximetry 90 100 Oxygen Delivery Nasal Cannula Oxygen Flow Rate 8 Fraction of Inspired Oxygen 10/16/24 00:00 10/15/24 20:00 10/15/24 22:00 Temperature Pulse Rate 85 67 Respiratory Rate Blood Pressure Pulse Oximetry 99 Oxygen Delivery Nasal Cannula Oxygen Flow Rate 4 Fraction of Inspired Oxygen 10/16/24 00:00 10/16/24 02:00 10/15/24 22:40 Temperature Pulse Rate 69 66 79 Respiratory Rate 20 Blood Pressure Pulse Oximetry Oxygen Delivery Oxygen Flow Rate Fraction of Inspired Oxygen 10/16/24 03:43 10/16/24 04:15 10/16/24 03:53 Temperature 98.8 F Pulse Rate 72 74 76 Respiratory Rate 20 24 H 20 Blood Pressure 121/97 H Pulse Oximetry 100 Oxygen Delivery Oxygen Flow Rate Fraction of Inspired Oxygen 10/16/24 04:00 10/16/24 04:00 10/16/24 06:00 Temperature Pulse Rate 85 67 Respiratory Rate Blood Pressure Pulse Oximetry 99 Oxygen Delivery Nasal Cannula Oxygen Flow Rate 4 Fraction of Inspired Oxygen 10/16/24 08:00 10/16/24 08:28 10/16/24 08:28 Temperature 98.9 F Pulse Rate 75 68 Respiratory Rate 20 20 Blood Pressure 119/87 Pulse Oximetry 94 95 Oxygen Delivery High Flow Nasal Cannula Oxygen Flow Rate 4 Fraction of Inspired Oxygen 36 10/16/24 08:43 10/16/24 08:00 10/16/24 08:00 Temperature Pulse Rate 82 67 Respiratory Rate 20 Blood Pressure Pulse Oximetry 100 Oxygen Delivery High Flow Nasal Cannula Oxygen Flow Rate 4 Fraction of Inspired Oxygen 10/16/24 13:00 Temperature 98.8 F Pulse Rate 85 Respiratory Rate 16 Blood Pressure 148/90 H Pulse Oximetry 94 Oxygen Delivery Oxygen Flow Rate Fraction of Inspired Oxygen Intake/Output Intake/Output: Intake & Output 10/13/24 10/14/24 10/15/24 10/16/24 23:59 23:59 23:59 23:59 Intake Total 2200 300 1100 Output Total 3 Balance 2200 297 1100 Meds/Results Medications: Active Medications Generic Name Dose Route Start Last Admin Trade Name Freq PRN Reason Stop Dose Admin Acetaminophen 650 mg 10/13/24 23:44 10/14/24 09:22 Acetaminophen 650 Mg Suppository RECTAL 650 mg Q6H PRN Administration Mild Pain (1-3) or Fever Acetaminophen 650 mg 10/14/24 08:04 Acetaminophen 325 Mg Tablet PO Q4H PRN pain 1-3 or fever Albuterol/Ipratropium 3 ml 10/14/24 16:57 10/16/24 08:26 Ipratropium 0.5 Mg/Albuterol Sulfate 2.5 Mg Ampul.Neb 3 Ml INHALATION 3 ml Q6HRT MARLON Administration Alprazolam 0.5 mg 10/14/24 09:00 10/16/24 10:01 Alprazolam (*Crx) 0.5 Mg Tablet PO 0.5 mg TID MARLON Administration Aripiprazole 20 mg 10/14/24 09:00 10/16/24 10:00 Aripiprazole 10 Mg Tablet PO 20 mg QAM MARLON Administration Bupropion HCl 150 mg 10/14/24 09:00 10/16/24 09:58 Bupropion Hcl Xl (24 Hr) 150 Mg Tabcr PO 150 mg QAM MARLON Administration Dextrose 12.5 gm 10/15/24 06:03 10/15/24 06:29 Dextrose 50% 25 Gm/50 Ml Syringe IV PUSH 12.5 gm PRN PRN Administration Hypoglycemia Protocol Enoxaparin Sodium 40 mg 10/15/24 12:00 10/16/24 10:01 Enoxaparin 40 Mg/0.4 Ml Syringe SUB-Q 40 mg DAILY MARLON Administration Famotidine 20 mg 10/14/24 09:00 10/16/24 10:00 Famotidine 20 Mg Tablet PO 20 mg DAILY MARLON Administration Glucose 15 gm 10/15/24 06:03 Glucose Oral Gel 15 Gm Of Glucse In 37.5 Gm Tube PO PRN PRN Hypoglycemia Protocol Doxycycline Hyclate 100 mg in 100 mls @ 100 mls/hr 10/14/24 12:15 10/16/24 10:18 Vibramycin 100 Mg/Ns 100 Ml IVPB 100 mls/hr BID@1100,2300 MARLON Administration Cefepime HCl 2 gm in 50 mls @ 100 mls/hr 10/14/24 18:00 10/16/24 05:05 Maxipime 2 Gm/Ns 50 Ml IVPB 100 mls/hr Q12H MARLON Administration Dextrose 1,000 mls @ 100 mls/hr 10/15/24 06:03 Dextrose 5% 1,000 Ml IVPB PRN PRN Hypoglycemia Protocol Dextrose 1,000 mls @ 50 mls/hr 10/15/24 08:50 10/16/24 05:05 Dextrose 5% 1,000 Ml IV CONT 50 mls/hr .Q20H MARLON Administration Vancomycin HCl 1,750 mg in 500 mls @ 250 mls/hr 10/16/24 03:00 10/16/24 03:45 Vancomycin 1,750 Mg/Ns 500 Ml IVPB 250 mls/hr Q24H MARLON Administration Lisinopril 10 mg 10/14/24 09:00 10/16/24 09:58 Lisinopril 10 Mg Tablet PO 10 mg DAILY MARLON Administration Multivitamins/Calcium 1 tablet 10/14/24 09:00 10/16/24 09:58 Therapeutic Multivitamins/Minerals Tab (*Bkc) PO 1 tablet DAILY MARLON Administration Scopolamine 1 patch 10/14/24 17:00 10/14/24 18:22 Scopolamine 1 Mg Patch TRANSDERM 1 patch Q72HR MARLON Administration Valproic Acid 750 mg 10/14/24 21:00 10/15/24 20:30 Valproic Acid 250 Mg Capsule PO 750 mg HS MARLON Administration Radiology Results: ITS Impressions Chest CT 10/14/24 09:39 IMPRESSION: 1. Diffuse bronchitis with small regions of tree-in-bud opacity consistent with likely developing pneumonia in the right upper and right lower lobes. Chest X-Ray 10/14/24 17:42 IMPRESSION: Bilateral interstitial thickening which may indicate pneumonitis. Clinical correlation advised. Underlying fibrotic changes is not excluded. Labs Labs: Laboratory Results - last 24 hr 10/15/24 10/15/24 10/16/24 16:41 21:03 00:00 WBC RBC Hgb Hct MCV MCH MCHC RDW Plt Count MPV Immature Gran % (Auto) Neut % (Auto) Lymph % (Auto) [place] % (Auto) Eos % (Auto) Baso % (Auto) Lymph # (Auto) [place] # (Auto) Eos # (Auto) Baso # (Auto) Abs Immat Gran (auto) Absolute Neuts (auto) Absolute Nucleated RBC Nucleated RBC % Sodium Potassium Chloride Carbon Dioxide Anion Gap BUN Creatinine Estim Creat Clear Calc Estimated GFR Glucose POC Capillary Glucose 78 127 H 97 Calcium Magnesium Total Bilirubin AST ALT Alkaline Phosphatase Total Protein Albumin Vancomycin Trough 10/16/24 10/16/24 10/16/24 01:29 05:34 12:18 WBC 6.2 RBC 3.20 L Hgb 9.7 L Hct 29.5 L MCV 92.2 MCH 30.3 MCHC 32.9 RDW 13.9 Plt Count 189 MPV 11.6 H Immature Gran % (Auto) 0.3 Neut % (Auto) 65.2 Lymph % (Auto) 21.3 [place] % (Auto) 12.4 H Eos % (Auto) 0.5 Baso % (Auto) 0.3 Lymph # (Auto) 1.32 [place] # (Auto) 0.8 H Eos # (Auto) 0.0 Baso # (Auto) 0.0 Abs Immat Gran (auto) 0.02 Absolute Neuts (auto) 4.0 Absolute Nucleated RBC 0.000 Nucleated RBC % 0.0 Sodium 140 Potassium 3.4 Chloride 112 H Carbon Dioxide 23 Anion Gap 5 BUN 23 H Creatinine 0.90 Estim Creat Clear Calc 48 Estimated GFR > 60 Glucose 84 POC Capillary Glucose 101 Calcium 8.3 L Magnesium 1.8 Total Bilirubin 0.4 AST 35 ALT 12 Alkaline Phosphatase 66 Total Protein 5.0 L Albumin 2.8 L Vancomycin Trough 10.9
[2024-10-16] MEDS: LIDOCAINE HCL 1% PF INJ 5 ML VIAL INFILTRATE (14:25)
[2024-10-16] MEDS: ACETAMINOPHEN 325 MG TABLET 650 MG PO (14:31)
--- NOTE | 2024-10-16 15:27 | PC.NURSE ---
This RN gave report to receiving Mark. MARIA ANTONIA
--- NOTE | 2024-10-16 16:18 | PC.NURSE ---
Pt transferred from IMU 232 to 3 Medical room 248.
--- NOTE | 2024-10-16 16:25 | PC.NURSE ---
Pt transferred from IMU 232 to 3 Medical room 248.
[2024-10-16 18:08] LABS: Glucose Point of Care 90 mg/dl (65-105)
[2024-10-16] MEDS: VALPROIC ACID 250 MG CAPSULE 750 MG PO (20:10)
[2024-10-16] MEDS: CENTRAL LINE FLUSH 10 ML IV PUSH (21:02)
[2024-10-17] VITALS (13 sets, daily range): BP systolic 91–134; BP diastolic 52–64; PULSE 77–88; RESP 16–20; TEMP 36.6–36.9; O2SAT 92–98
[2024-10-17 00:14] LABS: Glucose Point of Care 78 mg/dl (65-105)
[2024-10-17] MEDS: IPRATROPIUM 0.5 MG/ALBUTEROL SULFATE 2.5 MG AMPUL.NEB 3 ML INHALATION ×4 (01:07→20:14)
[2024-10-17] MEDS: DEXTROSE 5% 1,000 ML 1,000 ML 50 ML IV CONT (03:05)
[2024-10-17] MEDS: CEFEPIME 2 GM/NS 50 ML 2 GM/50 ML BAG IVPB (05:28)
[2024-10-17] MEDS: CENTRAL LINE FLUSH 10 ML IV PUSH ×3 (05:29→22:15)
[2024-10-17 05:38] LABS: Basophils Percent Auto 0.2 % (0.2-1.2); Eosinophils Absolute Auto 0.1 K/mm3 (0-0.3); Eosinophils Percent Auto 1.6 % (0-4.4); Hemoglobin 8.8 g/dL (12.0-15.0); Immature Granulocyte Absolute 0.02 K/mm3 (0.00-0.031); Immature Granulocyte Percent A 0.4 % (0-0.5); Lymphocytes Absolute Auto 0.97 K/mm3 (0.9-3.2); Lymphocytes Percent Auto 19.4 % (18.3-44.2); Mean Corpuscular HGB Conc 32.6 g/dl (32-36); Mean Corpuscular Hemoglobin 29.8 pg (26-34); Mean Corpuscular Volume 91.5 fl (80-100); Mean Platelet Volume 11.2 fl (7.4-10.4); Monocytes Absolute Auto 0.5 K/mm3 (0.1-0.6); Monocytes Percent Auto 9.4 % (2.6-8.5); Neutrophils Absolute Auto 3.5 K/mm3 (1.3-6.7); Platelet Count Result 192 k/mm3 (150-375); Red Blood Count 2.95 M/mm3 (4.2-5.4); Red Cell Distribution Width 13.9 % (11.5-14.5)
[2024-10-17 05:45] LABS: Alanine Aminotransferase 13 U/L (6-35); Albumin Level 2.8 g/dL (3.5-5.1); Alkaline Phosphatase 65 U/L (38-126); Anion Gap 3 mmol/L (4-12); Aspartate Amino Transferase 33 U/L (14-36); Bilirubin,Total 0.4 mg/dL (0.2-1.3); Blood Urea Nitrogen 16 mg/dL (7-17); Carbon Dioxide 24 mmol/L (22-30); Chloride 105 mmol/L (98-107); Estimated CRCL calculation 54 ml/min; Estimated Glomerular Filt Rate > 60; Glucose 310 mg/dL (65-110); Magnesium 1.7 mg/dL (1.6-2.3); Sodium 132 mmol/L (137-145)
[2024-10-17 05:46] LABS: Glucose Point of Care 87 mg/dl (65-105)
[2024-10-17] MEDS: MAGNESIUM SULF 1 GM/D5W 100 ML 1 GM/100 ML BAG IVPB (07:46)
[2024-10-17] MEDS: POTASSIUM CHLORIDE INJ 40 MEQ in SODIUM CHLORIDE 0.9% IV 500 ML 130 MEQ IVPB (08:54)
[2024-10-17] MEDS: ALPRAZolam (*CRX) 0.5 MG TABLET PO ×3 (09:33→17:34)
[2024-10-17] MEDS: THERAPEUTIC MULTIVITAMINS/MINERALS TAB (*BKC) 1 TABLET PO (09:34)
[2024-10-17] MEDS: buPROPion HCL XL (24 HR) 150 MG TABCR PO (09:34)
[2024-10-17] MEDS: lisinopriL 10 MG TABLET PO (09:34)
[2024-10-17] MEDS: FAMOTIDINE 20 MG TABLET PO (09:34)
[2024-10-17] MEDS: ARIPiprazole 10 MG TABLET 20 MG PO (09:34)
[2024-10-17] MEDS: ENOXAPARIN 40 MG/0.4 ML SYRINGE SUB-Q (09:37)
[2024-10-17] MEDS: SCOPOLAMINE 1 MG PATCH 1 PATCH TRANSDERM (09:37)
--- NOTE | 2024-10-17 11:11 | PCNFU ---
Nutrition Follow-Up Complete: Swallowing Difficulties as related to mental status as evidenced by NPO. Goal:Meet estimated nutritional needs. pt progressing towards goal, continue with same goal. Pt current nutrition is Pureed level 4, level 2 liquids, per speech/MBS recommendations, Ensure compact BID. Nutrition recommendation: continue with plan of care Last recorded weight is 59.1 kg. Bowel Motility: +BM 10/16 Labs Reviewed: Hgb:8.8, HCT:27, NA:132, K:3.0, Glu:310 Meds Noted: lovenox Skin: WNL Additional Notes: Pt diet upgraded to pureed, level 2 liquids, intake 25-50% at this time, Ensure compact BID in place. Agree with orders, encourage po intake. Will monitor weight, labs, skin, diet orders, meds every 5 days.
--- NOTE | 2024-10-17 11:27 | PM.IMPN ---
Progress Note: A&P Assessment and Plan (1) Respiratory syncytial virus (RSV): Qualifiers: RSV infection type: acute laryngotracheobronchitis Qualified Code(s): J20.5 - Acute bronchitis due to respiratory syncytial virus Code(s): B33.8 - Other specified viral diseases Status: Acute (2) Acute hypoxic respiratory failure: Code(s): J96.01 - Acute respiratory failure with hypoxia Status: Acute Plan As this is 59-year-old female with past medical history of schizoaffective disorder intellectual disability dementia presents to the ED with complaint of cough and fever. Patient was recently admitted here for hypoxia possible pulmonary edema about 2 weeks ago. Patient's baseline mental status is alert and oriented times 0-1 and is nonverbal. EMS reported elevated temperature and hypoxia on room air that responded well to 6 L of oxygen. Patient has also been coughing but was nonproductive. On ED arrival she was alert and continues to crying. She was tachycardic with normal blood pressure. Patient does was cyanotic her oxygen saturation was in 86% to 90%. Chest x-ray showed mild pulmonary vascular congestion and suggest a mild pulmonary interstitial subpleural edema with normal heart size. Noncontrast CT chest was done which demonstrated diffuse bronchitis small areas of tree-in-bud opacity consistent with likely developing pneumonia and right upper and right lower lobes. Laboratory evaluation showed normal WBC count. Electrolyte panel was stable except for increased BUN from baseline and UA consistent with dehydration with 1+ ketones. Patient received 1 L fluid bolus in the ER and was started on cefepime and vancomycin patient's RSV came back positive. Negative for influenza and COVID. Patient was started on scheduled nebulizer treatments and some hypertonic saline to help with mucolytic effect. The patient has thick copious secretions in posterior oropharynx. Will continue supportive care with Tylenol. Given the patient's baseline intellectual disability and mental disorders in the acute setting of infection patient may not necessarily be protecting her airway is good has previously. Will have speech therapy evaluate as the patient may also have a component of aspiration. Patient did receive 1 dose of cefepime and vancomycin in the ER prior to her viral panel demonstrating a viral cause for symptoms. Antibiotics have since been discontinued. With ongoing fever restarted on cefepime and doxycycline. Nasal MRSA is negative and hence vancomycin discontinued. Will continue Tylenol and other supportive care measures. Recent echo 09/28/2024 with EF 60-65% grade 1 diastolic dysfunction. Mild tricuspid regurgitation. BNP 176. Hypoglycemia due to NPO status. D5 water started. Now more awake and past swallow evaluation. Started on oral diet. Will discontinue D5 water infusion. Switch antibiotics to oral to finish the course. DVT prophylaxis Lovenox Code status full code Subjective Date/time seen: 10/17/24 11:27 Interval history: No overnight events. Patient remains afebrile. Awake and alert. Eating okay. She is off oxygen now. Review of Systems Review of Systems: ROS unobtainable: Yes unobtainable due to mental status Exam Narrative: GENERAL: Well-appearing, well-nourished, and in no acute distress. Awake and alert HEAD: Normocephalic, atraumatic. EYES: PERRLA and EOMI. NECK: Supple. No adenopathy or masses. CHEST: Coarse breath sounds heard bilaterally. No respiratory distress HEART: Regular rate and rhythm No murmur heard. Normal peripheral pulses. ABDOMEN: Soft, nontender, nondistended, normal active bowel sounds. MSK: Normal range of motion. No edema. SKIN: Warm, dry, no rash. NEURO: More awake and oriented times 0 at baseline PSYCH: Calm and cooperative. Objective Data Vital Signs Vital Signs: Vital Signs - 24 hr 10/16/24 13:00 10/16/24 13:58 10/16/24 13:58 Temperature 98.8 F Pulse Rate 85 85 Respiratory Rate 16 20 Blood Pressure 148/90 H Pulse Oximetry 94 95 Oxygen Delivery Nasal Cannula Oxygen Flow Rate 2 Fraction of Inspired Oxygen 28 10/16/24 14:07 10/16/24 12:00 10/16/24 14:00 Temperature Pulse Rate 90 84 84 Respiratory Rate 20 Blood Pressure Pulse Oximetry Oxygen Delivery Oxygen Flow Rate Fraction of Inspired Oxygen 10/16/24 16:00 10/16/24 16:30 10/16/24 19:42 Temperature 98.2 F Pulse Rate 93 88 84 Respiratory Rate 16 20 Blood Pressure 114/83 Pulse Oximetry 97 Oxygen Delivery Oxygen Flow Rate Fraction of Inspired Oxygen 10/16/24 19:55 10/16/24 20:10 10/16/24 21:10 Temperature 97.8 F Pulse Rate 80 80 84 Respiratory Rate 20 20 20 Blood Pressure 118/92 H Pulse Oximetry 97 96 Oxygen Delivery Room Air Oxygen Flow Rate Fraction of Inspired Oxygen 28 10/17/24 01:07 10/17/24 01:16 10/17/24 05:24 Temperature 98.4 F Pulse Rate 77 79 87 Respiratory Rate 20 20 20 Blood Pressure 117/54 L Pulse Oximetry 96 Oxygen Delivery Oxygen Flow Rate Fraction of Inspired Oxygen 10/17/24 08:53 10/17/24 08:53 10/17/24 09:04 Temperature Pulse Rate 83 85 Respiratory Rate 20 20 Blood Pressure Pulse Oximetry 95 Oxygen Delivery Room Air Oxygen Flow Rate Fraction of Inspired Oxygen 21 10/17/24 08:54 Temperature Pulse Rate Respiratory Rate Blood Pressure Pulse Oximetry Oxygen Delivery Room Air Oxygen Flow Rate Fraction of Inspired Oxygen Intake/Output Intake/Output: Intake & Output 10/14/24 10/15/24 10/16/24 10/17/24 23:59 23:59 23:59 23:59 Intake Total 2200 300 1310 1290 Output Total 3 Balance 2200 297 1310 1290 Meds/Results Medications: Active Medications Generic Name Dose Route Start Last Admin Trade Name Freq PRN Reason Stop Dose Admin Acetaminophen 650 mg 10/13/24 23:44 10/14/24 09:22 Acetaminophen 650 Mg Suppository RECTAL 650 mg Q6H PRN Administration Mild Pain (1-3) or Fever Acetaminophen 650 mg 10/14/24 08:04 10/16/24 14:31 Acetaminophen 325 Mg Tablet PO 650 mg Q4H PRN Administration pain 1-3 or fever Albuterol/Ipratropium 3 ml 10/14/24 16:57 10/17/24 08:53 Ipratropium 0.5 Mg/Albuterol Sulfate 2.5 Mg Ampul.Neb 3 Ml INHALATION 3 ml Q6HRT MARLON Administration Alprazolam 0.5 mg 10/14/24 09:00 10/17/24 09:33 Alprazolam (*Crx) 0.5 Mg Tablet PO 0.5 mg TID MARLON Administration Aripiprazole 20 mg 10/14/24 09:00 10/17/24 09:34 Aripiprazole 10 Mg Tablet PO 20 mg QAM MARLON Administration Bupropion HCl 150 mg 10/14/24 09:00 10/17/24 09:34 Bupropion Hcl Xl (24 Hr) 150 Mg Tabcr PO 150 mg QAM MARLON Administration Dextrose 12.5 gm 10/15/24 06:03 10/15/24 06:29 Dextrose 50% 25 Gm/50 Ml Syringe IV PUSH 12.5 gm PRN PRN Administration Hypoglycemia Protocol Enoxaparin Sodium 40 mg 10/15/24 12:00 10/17/24 09:37 Enoxaparin 40 Mg/0.4 Ml Syringe SUB-Q 40 mg DAILY MARLON Administration Famotidine 20 mg 10/14/24 09:00 10/17/24 09:34 Famotidine 20 Mg Tablet PO 20 mg DAILY MARLON Administration Glucose 15 gm 10/15/24 06:03 Glucose Oral Gel 15 Gm Of Glucse In 37.5 Gm Tube PO PRN PRN Hypoglycemia Protocol Doxycycline Hyclate 100 mg in 100 mls @ 100 mls/hr 10/14/24 12:15 10/16/24 23:26 Vibramycin 100 Mg/Ns 100 Ml IVPB 100 mls/hr BID@[id number] MARLON Administration Cefepime HCl 2 gm in 50 mls @ 100 mls/hr 10/14/24 18:00 10/17/24 05:28 Maxipime 2 Gm/Ns 50 Ml IVPB 100 mls/hr Q12H MARLON Administration Dextrose 1,000 mls @ 100 mls/hr 10/15/24 06:03 Dextrose 5% 1,000 Ml IVPB PRN PRN Hypoglycemia Protocol Dextrose 1,000 mls @ 50 mls/hr 10/15/24 08:50 10/17/24 03:05 Dextrose 5% 1,000 Ml IV CONT 50 mls/hr .Q20H MARLON Administration Potassium Chloride 40 meq/ 520 mls @ 130 mls/hr 10/17/24 07:45 10/17/24 08:54 Sodium Chloride IVPB 10/17/24 11:44 130 mls/hr ONCE ONE Administration Lisinopril 10 mg 10/14/24 09:00 10/17/24 09:34 Lisinopril 10 Mg Tablet PO 10 mg DAILY MARLON Administration Multivitamins/Calcium 1 tablet 10/14/24 09:00 10/17/24 09:34 Therapeutic Multivitamins/Minerals Tab (*Bkc) PO 1 tablet DAILY MARLON Administration Scopolamine 1 patch 10/14/24 17:00 10/17/24 09:37 Scopolamine 1 Mg Patch TRANSDERM 1 patch Q72HR MARLON Administration Sodium Chloride 10 ml 10/16/24 22:00 10/17/24 05:29 Central Line Flush IV PUSH 10 ml Q8HR MARLON Administration Sodium Chloride 10 ml 10/16/24 14:02 Central Line Flush IV PUSH PRN PRN with TPN bag changes Sodium Chloride 20 ml 10/16/24 14:02 Central Line Flush IV PUSH PRN PRN after blood draws Valproic Acid 750 mg 10/14/24 21:00 10/16/24 20:10 Valproic Acid 250 Mg Capsule PO 750 mg HS MARLON Administration Radiology Results: ITS Impressions Chest CT 10/14/24 09:39 IMPRESSION: 1. Diffuse bronchitis with small regions of tree-in-bud opacity consistent with likely developing pneumonia in the right upper and right lower lobes. Chest X-Ray 10/16/24 13:59 IMPRESSION: PICC terminates in the SVC. Labs Labs: Laboratory Results - last 24 hr 10/16/24 10/16/24 10/17/24 12:18 18:05 00:10 WBC RBC Hgb Hct MCV MCH MCHC RDW Plt Count MPV Immature Gran % (Auto) Neut % (Auto) Lymph % (Auto) [place] % (Auto) Eos % (Auto) Baso % (Auto) Lymph # (Auto) [place] # (Auto) Eos # (Auto) Baso # (Auto) Abs Immat Gran (auto) Absolute Neuts (auto) Absolute Nucleated RBC Nucleated RBC % Sodium Potassium Chloride Carbon Dioxide Anion Gap BUN Creatinine Estim Creat Clear Calc Estimated GFR Glucose POC Capillary Glucose 101 90 78 Calcium Magnesium Total Bilirubin AST ALT Alkaline Phosphatase Total Protein Albumin 10/17/24 10/17/24 05:26 05:43 WBC 5.0 RBC 2.95 L Hgb 8.8 L Hct 27.0 L MCV 91.5 MCH 29.8 MCHC 32.6 RDW 13.9 Plt Count 192 MPV 11.2 H Immature Gran % (Auto) 0.4 Neut % (Auto) 69.0 Lymph % (Auto) 19.4 [place] % (Auto) 9.4 H Eos % (Auto) 1.6 Baso % (Auto) 0.2 Lymph # (Auto) 0.97 [place] # (Auto) 0.5 Eos # (Auto) 0.1 Baso # (Auto) 0.0 Abs Immat Gran (auto) 0.02 Absolute Neuts (auto) 3.5 Absolute Nucleated RBC 0.000 Nucleated RBC % 0.0 Sodium 132 L Potassium 3.0 L Chloride 105 Carbon Dioxide 24 Anion Gap 3 L BUN 16 Creatinine 0.80 Estim Creat Clear Calc 54 Estimated GFR > 60 Glucose 310 H POC Capillary Glucose 87 Calcium 8.0 L Magnesium 1.7 Total Bilirubin 0.4 AST 33 ALT 13 Alkaline Phosphatase 65 Total Protein 5.0 L Albumin 2.8 L
[2024-10-17 12:10] LABS: Glucose Point of Care 84 mg/dl (65-105)
[2024-10-17] MEDS: DOXYCYCLINE HYCLATE 100 MG TABLET PO ×2 (12:12→17:34)
[2024-10-17 17:25] LABS: Glucose Point of Care 89 mg/dl (65-105)
[2024-10-17] MEDS: AMOXICILLIN/CLAVULANATE K 875-125 MG TAB 1 TABLET PO (17:34)
[2024-10-17] MEDS: VALPROIC ACID 250 MG CAPSULE 750 MG PO (20:34)
[2024-10-18] VITALS (13 sets, daily range): BP systolic 104–123; BP diastolic 46–66; PULSE 70–86; RESP 16–20; TEMP 36–36.7; O2SAT 90–98
[2024-10-18 00:19] LABS: Glucose Point of Care 92 mg/dl (65-105)
[2024-10-18] MEDS: IPRATROPIUM 0.5 MG/ALBUTEROL SULFATE 2.5 MG AMPUL.NEB 3 ML INHALATION ×4 (02:19→20:08)
[2024-10-18] MEDS: CENTRAL LINE FLUSH 10 ML IV PUSH ×3 (05:17→22:29)
[2024-10-18 06:07] LABS: Glucose Point of Care 79 mg/dl (65-105)
[2024-10-18 06:27] LABS: Basophils Percent Auto 0.6 % (0.2-1.2); Eosinophils Absolute Auto 0.2 K/mm3 (0-0.3); Eosinophils Percent Auto 3.6 % (0-4.4); Hematocrit 29.8 % (37.0-47.0); Hemoglobin 9.6 g/dL (12.0-15.0); Immature Granulocyte Absolute 0.11 K/mm3 (0.00-0.031); Immature Granulocyte Percent A 2.2 % (0-0.5); Lymphocytes Absolute Auto 1.29 K/mm3 (0.9-3.2); Lymphocytes Percent Auto 25.5 % (18.3-44.2); Mean Corpuscular HGB Conc 32.2 g/dl (32-36); Mean Corpuscular Hemoglobin 29.6 pg (26-34); Mean Platelet Volume 11.3 fl (7.4-10.4); Monocytes Absolute Auto 0.5 K/mm3 (0.1-0.6); Monocytes Percent Auto 10.3 % (2.6-8.5); Neutrophils Absolute Auto 2.9 K/mm3 (1.3-6.7); Neutrophils Percent Auto 57.8 % (45.5-73.1); Platelet Count Result 209 k/mm3 (150-375); Red Blood Count 3.24 M/mm3 (4.2-5.4); White Blood Count 5.1 K/mm3 (4.5-10.0)
[2024-10-18 06:35] LABS: Alanine Aminotransferase 13 U/L (6-35); Alkaline Phosphatase 71 U/L (38-126); Anion Gap 3 mmol/L (4-12); Aspartate Amino Transferase 28 U/L (14-36); Bilirubin,Total 0.4 mg/dL (0.2-1.3); Blood Urea Nitrogen 13 mg/dL (7-17); Calcium 8.9 mg/dL (8.4-10.2); Carbon Dioxide 27 mmol/L (22-30); Chloride 113 mmol/L (98-107); Estimated CRCL calculation 54 ml/min; Estimated Glomerular Filt Rate > 60; Glucose 80 mg/dL (65-110); Magnesium 1.9 mg/dL (1.6-2.3); Sodium 143 mmol/L (137-145)
[2024-10-18] MEDS: ARIPiprazole 10 MG TABLET 20 MG PO (08:26)
[2024-10-18] MEDS: THERAPEUTIC MULTIVITAMINS/MINERALS TAB (*BKC) 1 TABLET PO (08:26)
[2024-10-18] MEDS: DOXYCYCLINE HYCLATE 100 MG TABLET PO ×2 (08:27→18:11)
[2024-10-18] MEDS: ALPRAZolam (*CRX) 0.5 MG TABLET PO ×3 (08:27→16:35)
[2024-10-18] MEDS: buPROPion HCL XL (24 HR) 150 MG TABCR PO (08:27)
[2024-10-18] MEDS: AMOXICILLIN/CLAVULANATE K 875-125 MG TAB 1 TABLET PO ×2 (08:27→20:49)
[2024-10-18] MEDS: FAMOTIDINE 20 MG TABLET PO (08:27)
[2024-10-18] MEDS: ENOXAPARIN 40 MG/0.4 ML SYRINGE SUB-Q (08:28)
[2024-10-18] MEDS: lisinopriL 10 MG TABLET PO (10:01)
[2024-10-18 11:54] LABS: Glucose Point of Care 94 mg/dl (65-105)
--- NOTE | 2024-10-18 12:20 | P.PNIM_ITS ---
Progress Note: A&P Assessment and Plan (1) Respiratory syncytial virus (RSV): Qualifiers: RSV infection type: acute laryngotracheobronchitis Qualified Code(s): J20.5 - Acute bronchitis due to respiratory syncytial virus Code(s): B33.8 - Other specified viral diseases Status: Acute (2) Acute hypoxic respiratory failure: Code(s): J96.01 - Acute respiratory failure with hypoxia Status: Acute Plan As this is 59-year-old female with past medical history of schizoaffective disorder intellectual disability dementia presents to the ED with complaint of cough and fever. Patient was recently admitted here for hypoxia possible pulm onary edema about 2 weeks ago. Patient's baseline mental status is alert and oriented times 0-1 and is nonverbal. EMS reported elevated temperature and hypoxia on room air that responded well to 6 L of oxygen. Patient has also been coughing but was nonproductive. On ED arrival she was alert and continues to crying. She was tachycardic with normal blood pressure. Patient does was cyanotic her oxygen saturation was in 86% to 90%. Chest x-ray showed mild pulmonary vascular congestion and suggest a mild pulmonary interstitial subpleural edema with normal heart size. Noncontrast CT chest was done which demonstrated diffuse bronchitis small areas of tree-in-bud opacity consistent with likely developing pneumonia and right upper and right lower lobes. Laboratory evaluation showed normal WBC count. Electrolyte panel was stable except for increased BUN from baseline and UA consistent with dehydration with 1+ ketones. Patient received 1 L fluid bolus in the ER and was started on cefep nancie and vancomycin patient's RSV came back positive. Negative for influenza and COVID. Patient was started on scheduled nebulizer treatments and some hypertonic saline to help with mucolytic effect. The patient has thick copious secretions in posterior oropharynx. Will continue supportive care with Tylenol. Given the patient's baseline intellectual disability and mental disorders in the acute setting of infection patient may not necessarily be protecting her airway is good has previously. Will have speech therapy evaluate as the patient may also have a component of aspiration. Patient did receive 1 dose of cefepime and vancomycin in the ER prior to her viral panel demonstrating a viral cause for symptoms. Antibiotics have since been discontinued. With ongoing fever restarted on cefepime and doxycycline. Nasal MRSA is negative and hence vancomycin discontinued. Will continue Tylenol and other supportive care measures. Recent echo 09/28/2024 with EF 60-65% grade 1 diastolic dysfunction. Mild tricuspid regurgitation. BNP 176. Antibiotics switched to oral to finish the course. Hypoglycemia due to NPO status. Treated with D5 water initially. Now more awake and past swallow evaluation and started on oral diet. Speech to re- evaluate DVT prophylaxis Lovenox Code status full code Subjective Date/time seen: 10/18/24 12:20 Interval history: No overnight events reported. Patient intermittently coughing with thickened liquids she is on. Remains Off oxygen Review of Systems Review of Systems: ROS unobtainable: Yes unobtainable due to mental status Exam Narrative: GENERAL: Well-appearing, well-nourished, and in no acute distress. Awake and alert HEAD: Normocephalic, atraumatic. EYES: PERRLA and EOMI. NECK: Supple. No adenopathy or masses. CHEST: Coarse breath sounds heard bilaterally. No respiratory distress HEART: Regular rate and rhythm No murmur heard. Normal peripheral pulses. ABDOMEN: Soft, nontender, nondistended, normal active bowel sounds. MSK: Normal range of motion. No edema. SKIN: Warm, dry, no rash. NEURO: More awake and oriented times 0 at baseline PSYCH: Calm and cooperative. Objective Data Vital Signs Vital Signs: Vital Signs - 24 hr 10/17/24 13:06 10/17/24 13:14 10/17/24 14:00 Temperature 98.1 F Pulse Rate 87 88 82 Respiratory Rate 20 20 16 Blood Pressure 91/52 L Pulse Oximetry 98 Oxygen Delivery Fraction of Inspired Oxygen 10/17/24 15:00 10/17/24 20:14 10/17/24 20:14 Temperature Pulse Rate 80 Respiratory Rate 16 Blood Pressure 134/64 Pulse Oximetry 96 Oxygen Delivery Room Air Fraction of Inspired Oxygen 10/17/24 20:20 10/17/24 21:15 10/17/24 20:35 Temperature 98 F Pulse Rate 82 78 78 Respiratory Rate 16 20 20 Blood Pressure 100/55 L Pulse Oximetry 92 92 Oxygen Delivery Room Air Fraction of Inspired Oxygen 10/18/24 02:19 10/18/24 02:26 10/18/24 06:11 Temperature 97.3 F L Pulse Rate 70 77 77 Respiratory Rate 16 16 18 Blood Pressure 104/60 Pulse Oximetry 95 Oxygen Delivery Fraction of Inspired Oxygen 10/18/24 07:56 10/18/24 07:56 10/18/24 08:10 Temperature Pulse Rate 85 72 Respiratory Rate 20 20 Blood Pressure Pulse Oximetry 92 Oxygen Delivery Room Air Fraction of Inspired Oxygen 10/18/24 07:50 10/18/24 11:15 Temperature Pulse Rate Respiratory Rate Blood Pressure Pulse Oximetry Oxygen Delivery Room Air Room Air Fraction of Inspired Oxygen Intake/Output Intake/Output: Intake & Output 10/15/24 10/16/24 10/17/24 10/18/24 23:59 23:59 23:59 23:59 Intake Total 300 1310 2150 350 Output Total 3 Balance 297 1310 2150 350 Meds/Results Medications: Active Medications Generic Name Dose Route Start Last Admin Trade Name Freq PRN Reason Stop Dose Admin Acetaminophen 650 mg 10/13/24 23:44 10/14/24 09:22 Acetaminophen 650 Mg Suppository RECTAL 650 mg Q6H PRN Administration Mild Pain (1-3) or Fever Acetaminophen 650 mg 10/14/24 08:04 10/16/24 14:31 Acetaminophen 325 Mg Tablet PO 650 mg Q4H PRN Administration pain 1-3 or fever Albuterol/Ipratropium 3 ml 10/14/24 16:57 10/18/24 07:55 Ipratropium 0.5 Mg/Albuterol Sulfate 2.5 Mg Ampul.Neb 3 Ml INHALATION 3 ml Q6HRT MARLON Administration Alprazolam 0.5 mg 10/14/24 09:00 10/18/24 08:27 Alprazolam (*Crx) 0.5 Mg Tablet PO 0.5 mg TID MARLON Administration Amoxicillin/Clavulanate Potassium 1 tablet 10/17/24 18:30 10/18/24 08:27 Amoxicillin/Clavulanate K 875-125 Mg Tab PO 10/18/24 21:01 1 tablet Q12HR MARLON Administration Aripiprazole 20 mg 10/14/24 09:00 10/18/24 08:26 Aripiprazole 10 Mg Tablet PO 20 mg QAM MARLON Administration Bupropion HCl 150 mg 10/14/24 09:00 10/18/24 08:27 Bupropion Hcl Xl (24 Hr) 150 Mg Tabcr PO 150 mg QAM MARLON Administration Dextrose 12.5 gm 10/15/24 06:03 10/15/24 06:29 Dextrose 50% 25 Gm/50 Ml Syringe IV PUSH 12.5 gm PRN PRN Administration Hypoglycemia Protocol Doxycycline Hyclate 100 mg 10/17/24 12:00 10/18/24 08:27 Doxycycline Hyclate 100 Mg Tablet PO 10/18/24 19:01 100 mg 0700,1900 MARLON Administration Enoxaparin Sodium 40 mg 10/15/24 12:00 10/18/24 08:28 Enoxaparin 40 Mg/0.4 Ml Syringe SUB-Q 40 mg DAILY MARLON Administration Famotidine 20 mg 10/14/24 09:00 10/18/24 08:27 Famotidine 20 Mg Tablet PO 20 mg DAILY MARLON Administration Glucose 15 gm 10/15/24 06:03 Glucose Oral Gel 15 Gm Of Glucse In 37.5 Gm Tube PO PRN PRN Hypoglycemia Protocol Lisinopril 10 mg 10/14/24 09:00 10/18/24 10:01 Lisinopril 10 Mg Tablet PO 10 mg DAILY MARLON Administration Multivitamins/Calcium 1 tablet 10/14/24 09:00 10/18/24 08:26 Therapeutic Multivitamins/Minerals Tab (*Bkc) PO 1 tablet DAILY MARLON Administration Scopolamine 1 patch 10/14/24 17:00 10/17/24 09:37 Scopolamine 1 Mg Patch TRANSDERM 1 patch Q72HR MARLON Administration Sodium Chloride 10 ml 10/16/24 22:00 10/18/24 05:17 Central Line Flush IV PUSH 10 ml Q8HR MARLON Administration Sodium Chloride 10 ml 10/16/24 14:02 Central Line Flush IV PUSH PRN PRN with TPN bag changes Sodium Chloride 20 ml 10/16/24 14:02 Central Line Flush IV PUSH PRN PRN after blood draws Valproic Acid 750 mg 10/14/24 21:00 10/17/24 20:34 Valproic Acid 250 Mg Capsule PO 750 mg HS MARLON Administration Radiology Results: ITS Impressions Chest CT 10/14/24 09:39 IMPRESSION: 1. Diffuse bronchitis with small regions of tree-in-bud opacity consistent with likely developing pneumonia in the right upper and right lower lobes. Chest X-Ray 10/16/24 13:59 IMPRESSION: PICC terminates in the SVC. Labs Labs: Laboratory Results - last 24 hr 10/17/24 10/17/24 10/18/24 17:06 23:31 06:04 WBC 5.1 RBC 3.24 L Hgb 9.6 L Hct 29.8 L MCV 92.0 MCH 29.6 MCHC 32.2 RDW 14.0 Plt Count 209 MPV 11.3 H Immature Gran % (Auto) 2.2 H Neut % (Auto) 57.8 Lymph % (Auto) 25.5 [place] % (Auto) 10.3 H Eos % (Auto) 3.6 Baso % (Auto) 0.6 Lymph # (Auto) 1.29 [place] # (Auto) 0.5 Eos # (Auto) 0.2 Baso # (Auto) 0.0 Abs Immat Gran (auto) 0.11 H Absolute Neuts (auto) 2.9 Absolute Nucleated RBC 0.000 Nucleated RBC % 0.0 Sodium 143 Potassium 4.0 Chloride 113 H Carbon Dioxide 27 Anion Gap 3 L BUN 13 Creatinine 0.80 Estim Creat Clear Calc 54 Estimated GFR > 60 Glucose 80 POC Capillary Glucose 89 92 79 Calcium 8.9 Magnesium 1.9 Total Bilirubin 0.4 AST 28 ALT 13 Alkaline Phosphatase 71 Total Protein 6.0 L Albumin 3.0 L 10/18/24 11:45 WBC RBC Hgb Hct MCV MCH MCHC RDW Plt Count MPV Immature Gran % (Auto) Neut % (Auto) Lymph % (Auto) [place] % (Auto) Eos % (Auto) Baso % (Auto) Lymph # (Auto) [place] # (Auto) Eos # (Auto) Baso # (Auto) Abs Immat Gran (auto) Absolute Neuts (auto) Absolute Nucleated RBC Nucleated RBC % Sodium Potassium Chloride Carbon Dioxide Anion Gap BUN Creatinine Estim Creat Clear Calc Estimated GFR Glucose POC Capillary Glucose 94 Calcium Magnesium Total Bilirubin AST ALT Alkaline Phosphatase Total Protein Albumin
--- NOTE | 2024-10-18 12:30 | PC.NURSE ---
On 10/18/24, the student, [Mekhi Perez], provided care and completed [facility] documentation on this patient. I have reviewed the student's documentation and agree with the findings.
[2024-10-18] MEDS: ACETAMINOPHEN 325 MG TABLET 650 MG PO (12:34)
[2024-10-18 18:32] LABS: Glucose Point of Care 133 mg/dl (65-105)
[2024-10-18 20:41] LABS: Glucose Point of Care 75 mg/dl (65-105)
[2024-10-18] MEDS: VALPROIC ACID 250 MG CAPSULE 750 MG PO (20:49)
[2024-10-19] VITALS (19 sets, daily range): BP systolic 84–133; BP diastolic 60–97; PULSE 59–98; RESP 16–20; TEMP 36.9–37.3; O2SAT 82–97
[2024-10-19] MEDS: IPRATROPIUM 0.5 MG/ALBUTEROL SULFATE 2.5 MG AMPUL.NEB 3 ML INHALATION ×4 (01:54→20:02)
[2024-10-19] MEDS: CENTRAL LINE FLUSH 10 ML IV PUSH ×3 (05:46→22:24)
[2024-10-19] MEDS: THERAPEUTIC MULTIVITAMINS/MINERALS TAB (*BKC) 1 TABLET PO (09:11)
[2024-10-19] MEDS: ARIPiprazole 10 MG TABLET 20 MG PO (09:11)
[2024-10-19] MEDS: buPROPion HCL XL (24 HR) 150 MG TABCR PO (09:11)
[2024-10-19] MEDS: ALPRAZolam (*CRX) 0.5 MG TABLET PO ×2 (09:11→20:06)
[2024-10-19] MEDS: FAMOTIDINE 20 MG TABLET PO (09:11)
[2024-10-19] MEDS: ENOXAPARIN 40 MG/0.4 ML SYRINGE SUB-Q (09:11)
[2024-10-19 12:01] LABS: Glucose Point of Care 97 mg/dl (65-105)
--- NOTE | 2024-10-19 13:35 | PC.NURSE ---
Patient had MBS recommendations for puree diet with moderately thick level 3 liquids. Provider aware and diet change
--- NOTE | 2024-10-19 14:21 | PCSTNOTE ---
Please refer to the Modified Barium Swallow Evaluation in the EMR. The above nonverbal pt was seen for a modified barium swallow. Pt was noted to have missing teeth; no partial denture. She followed simple directives but did not vocalize or verbalize during testing; she was seated for a lateral view and presented with thin liquid, mildly and moderately thick liquids, pudding, and small bite-size pieces of solid. The trials were controlled but cup sips of the liquids were also tested. During the oral stage with essentially all liquid trials, loss of bolus control was noted as contents spilled prematurely into the pharynx to the level of the pyriform sinuses. No leakage or pocketing was noted. With the pudding trial, oral transit was slightly slow but overall WFL. When given the solid trial, small bite-size pieces of cracker, pt let contents sit in mouth then eventually propelled contents posteriorly and swallowed in whole pieces without mastication. During the pharyngeal stage, reduced laryngeal elevation was noted as evidenced by laryngeal penetration; poor tongue base retraction as evidenced by occasional vallecular residue; delayed triggering of the swallow was also intermittently noted. Aspiration occurred with the thin and mildly thick liquids. Impression: moderate/severe dysphagia Recommendations: puree level 4 diet due to pt not adequately masticating solid trial & moderately thick level 3 liquids.
--- NOTE | 2024-10-19 15:53 | PM.IMPN ---
Progress Note: A&P Assessment and Plan (1) Respiratory syncytial virus (RSV): Qualifiers: RSV infection type: acute laryngotracheobronchitis Qualified Code(s): J20.5 - Acute bronchitis due to respiratory syncytial virus Code(s): B33.8 - Other specified viral diseases Status: Acute (2) Acute hypoxic respiratory failure: Code(s): J96.01 - Acute respiratory failure with hypoxia Status: Acute (3) Dysphagia: Code(s): R13.10 - Dysphagia, unspecified Status: Acute (4) Schizoaffective disorder: Code(s): F25.9 - Schizoaffective disorder, unspecified Status: Acute (5) Intellectual disability: Code(s): F79 - Unspecified intellectual disabilities Status: Acute Plan Patient brought to the ED presents to the ED with complaint of cough and fever. Patient was recently admitted here for hypoxia possible pulmonary edema about 2 weeks ago. Patient's baseline mental status is alert and oriented times 0-1 and is nonverbal. EMS reported elevated temperature and hypoxia on room air that responded well to 6 L of oxygen. Patient has also been coughing but was nonproductive. Chest x-ray showed mild pulmonary vascular congestion and suggest a mild pulmonary interstitial subpleural edema with normal heart size. Noncontrast CT chest was done which demonstrated diffuse bronchitis small areas of tree-in-bud opacity consistent with likely developing pneumonia and right upper and right lower lobes. Normal WBC count. Patient received 1 L fluid bolus in the ER and was started on cefepime and vancomycin RSV came back positive. Negative for influenza and COVID. Patient did receive 1 dose of cefepime and vancomycin in the ER With ongoing fever restarted on cefepime and doxycycline. Nasal MRSA is negative and hence vancomycin discontinued. Completed 5 day course Patient was started on scheduled nebulizer treatments and some hypertonic saline to help with mucolytic effect. The patient has thick copious secretions in posterior oropharynx. Patient has chronic dysphagia and is on a pureed diet at the [place]. Given her disability and the acute setting of infection, there was concern that the patient may not necessarily be protecting her airway. Speech therapy evaluate with MBS showing she has moderate-severe dysphagia and had aspiration with thin and moderately thick fluids. They recommended pureed diet with level 3 liquids. Once she returned to the floor today, RN noted patient with wet cough and RT at bedside for suctioning. She was attempted to give meds with level 3 thickened liquids. Later the patient had thick frothy secretions from nose and mouth and became hypoxic. She was made NPO. Supplemental O2 added. CXR showing asymmetric left sided airspace disease. Spoke with brother and the above findings were discussed. Explained that the patient is having difficulty with secretions and may be weakened from the infection resulting in possible aspiration. Options discussed including GTube placement. He is familiar with this since the patinet has long standing issue with dysphagia and has had GTube in the past. After discussion, plan to place NGT for tube feedings for now. BP was soft this morning so lisinopril was held. BP better now, Recent echo 09/28/2024 with EF 60-65% grade 1 diastolic dysfunction. Mild tricuspid regurgitation. BNP 176. Fluid status positive but I/O's not accurate. Will treat with Lasix x1. Place NGT and start TF. DVT prophylaxis Lovenox Code status full code Subjective Date/time seen: 10/19/24 15:53 Interval history: 59yo female with intellectual diability, MDD, dysphagia and schizopaffective disorder here for hypoxia. Assuming care. Chart reviewed. She is alert but unable to provide hx. Exam Narrative: AF 98.4 133/97 92 18 92% 4L Gen - NARD Chest - coarse rhonchi diffusely with expiratory wheezes. CV - RRR S1/S2 Abd - Soft, NT/ND, Positive BS Ext - No pedal edema Neuro - Alert but confused. Psych - Nml mood and affect Skin - Warm and dry Objective Data Vital Signs Vital Signs: Vital Signs - 24 hr 10/18/24 20:09 10/18/24 20:11 10/18/24 20:16 Temperature Pulse Rate 85 83 Respiratory Rate 20 20 Blood Pressure Pulse Oximetry 90 Oxygen Delivery Room Air Oxygen Flow Rate Fraction of Inspired Oxygen 10/18/24 20:50 10/18/24 22:00 10/19/24 01:56 Temperature 96.8 F L Pulse Rate 83 86 90 Respiratory Rate 20 18 20 Blood Pressure 110/66 Pulse Oximetry 90 93 Oxygen Delivery Room Air Oxygen Flow Rate Fraction of Inspired Oxygen 21 10/19/24 02:03 10/19/24 05:33 10/19/24 07:50 Temperature 98.4 F Pulse Rate 91 88 Respiratory Rate 20 16 Blood Pressure 84/62 L Pulse Oximetry 94 93 Oxygen Delivery Nasal Cannula Oxygen Flow Rate 1 Fraction of Inspired Oxygen 10/19/24 07:50 10/19/24 08:01 10/19/24 09:15 Temperature Pulse Rate 87 90 95 Respiratory Rate 18 18 Blood Pressure 108/69 Pulse Oximetry 92 Oxygen Delivery Oxygen Flow Rate Fraction of Inspired Oxygen 10/19/24 09:18 10/19/24 09:10 10/19/24 13:57 Temperature Pulse Rate 91 Respiratory Rate 18 Blood Pressure Pulse Oximetry 92 92 Oxygen Delivery Room Air Room Air Oxygen Flow Rate Fraction of Inspired Oxygen 10/19/24 14:44 10/19/24 14:00 10/19/24 15:14 Temperature 98.4 F Pulse Rate 92 59 L Respiratory Rate 18 18 Blood Pressure 133/97 H Pulse Oximetry 90 82 L Oxygen Delivery Room Air Oxygen Flow Rate Fraction of Inspired Oxygen 10/19/24 15:15 Temperature Pulse Rate Respiratory Rate Blood Pressure Pulse Oximetry 92 Oxygen Delivery Nasal Cannula Oxygen Flow Rate 4 Fraction of Inspired Oxygen Intake/Output Intake/Output: Intake & Output 10/16/24 10/17/24 10/18/24 10/19/24 23:59 23:59 23:59 23:59 Intake Total 1310 2150 640 240 Output Total 1 Balance 1310 2150 640 239 Meds/Results Medications: Active Medications Generic Name Dose Route Start Last Admin Trade Name Freq PRN Reason Stop Dose Admin Acetaminophen 650 mg 10/13/24 23:44 10/14/24 09:22 Acetaminophen 650 Mg Suppository RECTAL 650 mg Q6H PRN Administration Mild Pain (1-3) or Fever Acetaminophen 650 mg 10/14/24 08:04 10/18/24 12:34 Acetaminophen 325 Mg Tablet PO 650 mg Q4H PRN Administration pain 1-3 or fever Albuterol/Ipratropium 3 ml 10/14/24 16:57 10/19/24 13:57 Ipratropium 0.5 Mg/Albuterol Sulfate 2.5 Mg Ampul.Neb 3 Ml INHALATION 3 ml Q6HRT MARLON Administration Alprazolam 0.5 mg 10/14/24 09:00 10/19/24 12:16 Alprazolam (*Crx) 0.5 Mg Tablet PO Not Given TID MARLON Aripiprazole 20 mg 10/14/24 09:00 10/19/24 09:11 Aripiprazole 10 Mg Tablet PO 20 mg QAM MARLON Administration Bupropion HCl 150 mg 10/14/24 09:00 10/19/24 09:11 Bupropion Hcl Xl (24 Hr) 150 Mg Tabcr PO 150 mg QAM MARLON Administration Dextrose 12.5 gm 10/15/24 06:03 10/15/24 06:29 Dextrose 50% 25 Gm/50 Ml Syringe IV PUSH 12.5 gm PRN PRN Administration Hypoglycemia Protocol Enoxaparin Sodium 40 mg 10/15/24 12:00 10/19/24 09:11 Enoxaparin 40 Mg/0.4 Ml Syringe SUB-Q 40 mg DAILY MARLON Administration Famotidine 20 mg 10/14/24 09:00 10/19/24 09:11 Famotidine 20 Mg Tablet PO 20 mg DAILY MARLON Administration Glucose 15 gm 10/15/24 06:03 Glucose Oral Gel 15 Gm Of Glucse In 37.5 Gm Tube PO PRN PRN Hypoglycemia Protocol Lisinopril 10 mg 10/14/24 09:00 10/18/24 10:01 Lisinopril 10 Mg Tablet PO 10 mg DAILY MARLON Administration Multivitamins/Calcium 1 tablet 10/14/24 09:00 10/19/24 09:11 Therapeutic Multivitamins/Minerals Tab (*Bkc) PO 1 tablet DAILY MARLON Administration Scopolamine 1 patch 10/14/24 17:00 10/17/24 09:37 Scopolamine 1 Mg Patch TRANSDERM 1 patch Q72HR MARLON Administration Sodium Chloride 10 ml 10/16/24 22:00 10/19/24 14:58 Central Line Flush IV PUSH 10 ml Q8HR MARLON Administration Sodium Chloride 10 ml 10/16/24 14:02 Central Line Flush IV PUSH PRN PRN with TPN bag changes Sodium Chloride 20 ml 10/16/24 14:02 Central Line Flush IV PUSH PRN PRN after blood draws Valproic Acid 750 mg 10/14/24 21:00 10/18/24 20:49 Valproic Acid 250 Mg Capsule PO 750 mg HS MARLON Administration Radiology Results: ITS Impressions Chest CT 10/14/24 09:39 IMPRESSION: 1. Diffuse bronchitis with small regions of tree-in-bud opacity consistent with likely developing pneumonia in the right upper and right lower lobes. Chest X-Ray 10/16/24 13:59 IMPRESSION: PICC terminates in the SVC. Modified Barium Swallow 10/19/24 13:17 IMPRESSION: 1. Aspiration of thin liquids and mildly thick liquids. 2. Please refer to the speech therapy report for recommendations. Labs Labs: Laboratory Results - last 24 hr 10/18/24 10/18/24 10/19/24 18:29 19:57 11:58 POC Capillary Glucose 133 H 75 97
[2024-10-19] MEDS: FUROSEMIDE INJ 40 MG/4 ML VIAL 20 MG IV PUSH (18:38)
[2024-10-19] MEDS: VALPROIC ACID 250 MG CAPSULE 750 MG PO (20:06)
[2024-10-19] MEDS: ATROPINE SULFATE 0.4 MG/ML VIAL IV PUSH (22:45)
[2024-10-20] VITALS (13 sets, daily range): BP systolic 100–153; BP diastolic 48–60; PULSE 86–100; RESP 18–20; TEMP 36.6–38; O2SAT 92–98
[2024-10-20 00:43] LABS: Glucose Point of Care 98 mg/dl (65-105)
[2024-10-20] MEDS: IPRATROPIUM 0.5 MG/ALBUTEROL SULFATE 2.5 MG AMPUL.NEB 3 ML INHALATION ×3 (02:02→13:36)
[2024-10-20 05:06] LABS: Alveolar/Arterial O2 Gradient 144.4 mmHg; Base Excess ABG 1.2 mEq/l (+/-2.0); Fractional Inspired Oxygen 35 %; HCO3 ABG 24.7 mEq/l (22.0-26.0); Oxygen Content ABG 15.3 %vol (16.0-22.0); Oxygen Saturation ABG 93.7 % (95.0-100.0); Oxyhemoglobin 92.7 % THb (90.0-100.0); PCO2 ABG 35.3 mmHg (35.0-45.0); PO2 ABG 64.1 mmHg (80.0-100.0); PO2 FiO2 Ratio Arterial Blood 1.83 %; Total Hemoglobin 11.7 g/dL (12.0-18.0); pH ABG 7.463 (7.350-7.450)
[2024-10-20] MEDS: CENTRAL LINE FLUSH 10 ML IV PUSH ×3 (05:06→22:00)
[2024-10-20 05:07] LABS: Device NASAL CANNULA; Liters per Minute 3.5 LPM; Modified Allen's Test Pass; Site Drawn RIGHT RADIAL
[2024-10-20 05:40] LABS: Glucose Point of Care 158 mg/dl (65-105)
[2024-10-20] MEDS: ACETAMINOPHEN 325 MG TABLET 650 MG PO (05:45)
[2024-10-20 06:01] LABS: Basophils Percent Auto 0.3 % (0.2-1.2); Eosinophils Absolute Auto 0.2 K/mm3 (0-0.3); Hematocrit 33.2 % (37.0-47.0); Hemoglobin 10.8 g/dL (12.0-15.0); Immature Granulocyte Absolute 0.14 K/mm3 (0.00-0.031); Immature Granulocyte Percent A 0.9 % (0-0.5); Lymphocytes Absolute Auto 0.96 K/mm3 (0.9-3.2); Lymphocytes Percent Auto 6.1 % (18.3-44.2); Mean Corpuscular HGB Conc 32.5 g/dl (32-36); Mean Corpuscular Hemoglobin 29.8 pg (26-34); Mean Corpuscular Volume 91.7 fl (80-100); Mean Platelet Volume 10.6 fl (7.4-10.4); Monocytes Absolute Auto 1.1 K/mm3 (0.1-0.6); Neutrophils Absolute Auto 13.3 K/mm3 (1.3-6.7); Neutrophils Percent Auto 84.7 % (45.5-73.1); Platelet Count Result 301 k/mm3 (150-375); Red Blood Count 3.62 M/mm3 (4.2-5.4); Red Cell Distribution Width 14.2 % (11.5-14.5); White Blood Count 15.6 K/mm3 (4.5-10.0)
[2024-10-20 06:17] LABS: Alanine Aminotransferase 15 U/L (6-35); Albumin Level 3.3 g/dL (3.5-5.1); Alkaline Phosphatase 85 U/L (38-126); Anion Gap 3 mmol/L (4-12); Aspartate Amino Transferase 34 U/L (14-36); Bilirubin,Total 0.5 mg/dL (0.2-1.3); Blood Urea Nitrogen 17 mg/dL (7-17); Calcium 8.8 mg/dL (8.4-10.2); Carbon Dioxide 32 mmol/L (22-30); Chloride 107 mmol/L (98-107); Estimated CRCL calculation 54 ml/min; Estimated Glomerular Filt Rate > 60; Glucose 157 mg/dL (65-110); Magnesium 1.6 mg/dL (1.6-2.3); Phosphorus 3.3 mg/dL (2.5-4.5); Potassium 4.1 mmol/L (3.4-5.0); Sodium 142 mmol/L (137-145)
[2024-10-20] MEDS: FAMOTIDINE 20 MG TABLET PO (09:31)
[2024-10-20] MEDS: ALPRAZolam (*CRX) 0.5 MG TABLET PO ×3 (09:31→16:25)
[2024-10-20] MEDS: buPROPion HCL XL (24 HR) 150 MG TABCR PO (09:31)
[2024-10-20] MEDS: THERAPEUTIC MULTIVITAMINS/MINERALS TAB (*BKC) 1 TABLET PO (09:31)
[2024-10-20] MEDS: ENOXAPARIN 40 MG/0.4 ML SYRINGE SUB-Q (09:31)
[2024-10-20] MEDS: ARIPiprazole 10 MG TABLET 20 MG PO (09:31)
[2024-10-20] MEDS: SCOPOLAMINE 1 MG PATCH 1 PATCH TRANSDERM (09:32)
--- NOTE | 2024-10-20 10:24 | PCNFU ---
Nutrition Follow-Up Complete: Swallowing Difficulties as related to mental status as evidenced by NPO. Goal: Meet estimated nutritional needs. Patient has limited progress towards goal. We will continue current goal. Pt current nutrition is Jevity 1.2 at 60 ml/hr. Last recorded weight is 59.6 kg, no new weight to report. Bowel Motility: +BM reported 10/19 Labs Reviewed:Glu 157, Alb 3.3 Meds Noted: Lovenox, MVI Skin: WNL Additional Notes: Patient had MBS 10/19. NGT placed and tube feedings started of Jevity 1.2. Patient is currently at 60 ml/hr and tolerating per nursing. Flush 30 ml q 4 hours. Tube feedings meeting 1584 kcal/73 gm protein/1065 ml water. Agree with diet orders at this time. Will monitor weight, labs, skin, diet orders, meds every Thursday and Thursday.
[2024-10-20 11:48] LABS: Glucose Point of Care 130 mg/dl (65-105)
--- NOTE | 2024-10-20 12:04 | PM.IMPN ---
Progress Note: A&P Assessment and Plan (1) Respiratory syncytial virus (RSV): Qualifiers: RSV infection type: acute laryngotracheobronchitis Qualified Code(s): J20.5 - Acute bronchitis due to respiratory syncytial virus Code(s): B33.8 - Other specified viral diseases Status: Acute (2) Acute hypoxic respiratory failure: Code(s): J96.01 - Acute respiratory failure with hypoxia Status: Acute (3) Dysphagia: Code(s): R13.10 - Dysphagia, unspecified Status: Acute (4) Schizoaffective disorder: Code(s): F25.9 - Schizoaffective disorder, unspecified Status: Acute (5) Intellectual disability: Code(s): F79 - Unspecified intellectual disabilities Status: Acute Plan Patient brought to the ED presents to the ED with complaint of cough and fever. Patient was recently admitted here for hypoxia possible pulmonary edema about 2 weeks ago. Patient's baseline mental status is alert and oriented times 0-1 and is nonverbal. EMS reported elevated temperature and hypoxia on room air that responded well to 6 L of oxygen. Patient has also been coughing but was nonproductive. Chest x-ray showed mild pulmonary vascular congestion and suggest a mild pulmonary interstitial subpleural edema with normal heart size. Noncontrast CT chest was done which demonstrated diffuse bronchitis small areas of tree-in-bud opacity consistent with likely developing pneumonia and right upper and right lower lobes. Normal WBC count. Patient received 1 L fluid bolus in the ER and was started on cefepime and vancomycin RSV came back positive. Negative for influenza and COVID. Patient did receive 1 dose of cefepime and vancomycin in the ER With ongoing fever restarted on cefepime and doxycycline. Nasal MRSA is negative and hence vancomycin discontinued. Completed 5 day course Patient was started on scheduled nebulizer treatments and some hypertonic saline to help with mucolytic effect. The patient has thick copious secretions in posterior oropharynx. 10/19: Patient has chronic dysphagia and is on a pureed diet at the [place]. Given her disability and the acute setting of infection, there was concern that the patient may not necessarily be protecting her airway. Speech therapy evaluate with MBS showing she has moderate-severe dysphagia and had aspiration with thin and moderately thick fluids. They recommended pureed diet with level 3 liquids. Once she returned to the floor today, RN noted patient with wet cough and RT at bedside for suctioning. She was attempted to give meds with level 3 thickened liquids. Later the patient had thick frothy secretions from nose and mouth and became hypoxic. She was made NPO. Supplemental O2 added. CXR showing asymmetric left sided airspace disease. Spoke with brother and the above findings were discussed. Explained that the patient is having difficulty with secretions and may be weakened from the infection resulting in possible aspiration. Options discussed including GTube placement. He is familiar with this since the patinet has long standing issue with dysphagia and has had GTube in the past. After discussion, plan to place NGT for tube feedings for now. BP was soft this morning so lisinopril was held. BP better now, Recent echo 09/28/2024 with EF 60-65% grade 1 diastolic dysfunction. Mild tricuspid regurgitation. BNP 176. Fluid status positive but I/O's not accurate. Will treat with Lasix x1. Place NGT and start TF. 10/20: Spoke with resp therapy. Secretins much better and her lung exam is improved. She is having fevers and elevated WBC but CXR clear. Tolerating TF. Will hold off on feeding her today but consider trying oral intake tomorrow. Wean O2 as tolerated. Repeat CXR in the morning to assess for development of PNA. If able to eat safely, will remove NGT. If not, GI consult for GTube placement. Monitor off abx for now. DVT prophylaxis Lovenox Code status full code Subjective Date/time seen: 10/20/24 12:04 Interval history: 59yo female with intellectual diability, MDD, dysphagia and schizopaffective disorder here for hypoxia. Patient with low grade fevers this morning. Patient unable to provide hx. Tolerating TF at goal Review of Systems Review of Systems: ROS unobtainable: Yes unobtainable due to mental status Exam Narrative: Tm 100.4 97.8 153/60 96 20 94% 4L Gen - NARD HEENT - NGT secured. Chest - clear anteriorly to quiet respirations. CV - RRR S1/S2 Abd - Soft, nondistended, no apparent tenderness. Ext - No pedal edema Neuro - Alert but confused. Nonverbal Skin - Warm and dry Objective Data Vital Signs Vital Signs: Vital Signs - 24 hr 10/19/24 13:57 10/19/24 14:44 10/19/24 14:00 Temperature 98.4 F Pulse Rate 91 92 59 L Respiratory Rate 18 18 18 Blood Pressure 133/97 H Pulse Oximetry 90 Oxygen Delivery Oxygen Flow Rate Fraction of Inspired Oxygen 10/19/24 15:14 10/19/24 15:15 10/19/24 20:02 Temperature Pulse Rate 94 Respiratory Rate 18 Blood Pressure Pulse Oximetry 82 L 92 Oxygen Delivery Room Air Nasal Cannula Oxygen Flow Rate 4 Fraction of Inspired Oxygen 10/19/24 20:29 10/19/24 20:15 10/19/24 21:50 Temperature 99.2 F Pulse Rate 94 91 98 Respiratory Rate 18 20 Blood Pressure 131/60 Pulse Oximetry 95 97 Oxygen Delivery Nasal Cannula Oxygen Flow Rate 4 Fraction of Inspired Oxygen 10/19/24 20:00 10/19/24 22:23 10/20/24 02:02 Temperature Pulse Rate 98 98 88 Respiratory Rate 20 20 18 Blood Pressure Pulse Oximetry 97 97 Oxygen Delivery Nasal Cannula Nasal Cannula Oxygen Flow Rate 4 4 Fraction of Inspired Oxygen 21 21 10/20/24 02:10 10/20/24 05:45 10/20/24 05:45 Temperature 100.4 F H 100.2 F H Pulse Rate 92 100 Respiratory Rate 18 20 Blood Pressure 153/60 H Pulse Oximetry 93 Oxygen Delivery Oxygen Flow Rate Fraction of Inspired Oxygen 10/20/24 06:45 10/20/24 08:12 10/20/24 08:12 Temperature 97.8 F Pulse Rate 97 Respiratory Rate 20 Blood Pressure Pulse Oximetry 94 Oxygen Delivery Nasal Cannula Oxygen Flow Rate 4 Fraction of Inspired Oxygen 36 10/20/24 08:22 Temperature Pulse Rate 96 Respiratory Rate 20 Blood Pressure Pulse Oximetry Oxygen Delivery Oxygen Flow Rate Fraction of Inspired Oxygen Intake/Output Intake/Output: Intake & Output 10/17/24 10/18/24 10/19/24 10/20/24 23:59 23:59 23:59 23:59 Intake Total 2150 640 240 0 Output Total 1 Balance 2150 640 239 0 Meds/Results Medications: Active Medications Generic Name Dose Route Start Last Admin Trade Name Freq PRN Reason Stop Dose Admin Acetaminophen 650 mg 10/13/24 23:44 10/14/24 09:22 Acetaminophen 650 Mg Suppository RECTAL 650 mg Q6H PRN Administration Mild Pain (1-3) or Fever Acetaminophen 650 mg 10/14/24 08:04 10/20/24 05:45 Acetaminophen 325 Mg Tablet PO 650 mg Q4H PRN Administration pain 1-3 or fever Albuterol/Ipratropium 3 ml 10/14/24 16:57 10/20/24 08:12 Ipratropium 0.5 Mg/Albuterol Sulfate 2.5 Mg Ampul.Neb 3 Ml INHALATION 3 ml Q6HRT MARLON Administration Alprazolam 0.5 mg 10/14/24 09:00 10/20/24 09:31 Alprazolam (*Crx) 0.5 Mg Tablet PO 0.5 mg TID MARLON Administration Aripiprazole 20 mg 10/14/24 09:00 10/20/24 09:31 Aripiprazole 10 Mg Tablet PO 20 mg QAM MARLON Administration Bupropion HCl 150 mg 10/14/24 09:00 10/20/24 09:31 Bupropion Hcl Xl (24 Hr) 150 Mg Tabcr PO 150 mg QAM MARLON Administration Dextrose 12.5 gm 10/15/24 06:03 10/15/24 06:29 Dextrose 50% 25 Gm/50 Ml Syringe IV PUSH 12.5 gm PRN PRN Administration Hypoglycemia Protocol Enoxaparin Sodium 40 mg 10/15/24 12:00 10/20/24 09:31 Enoxaparin 40 Mg/0.4 Ml Syringe SUB-Q 40 mg DAILY MARLON Administration Famotidine 20 mg 10/14/24 09:00 10/20/24 09:31 Famotidine 20 Mg Tablet PO 20 mg DAILY MARLON Administration Glucose 15 gm 10/15/24 06:03 Glucose Oral Gel 15 Gm Of Glucse In 37.5 Gm Tube PO PRN PRN Hypoglycemia Protocol Lisinopril 10 mg 10/14/24 09:00 10/18/24 10:01 Lisinopril 10 Mg Tablet PO 10 mg DAILY MARLON Administration Multivitamins/Calcium 1 tablet 10/14/24 09:00 10/20/24 09:31 Therapeutic Multivitamins/Minerals Tab (*Bkc) PO 1 tablet DAILY MARLON Administration Scopolamine 1 patch 10/14/24 17:00 10/20/24 09:32 Scopolamine 1 Mg Patch TRANSDERM 1 patch Q72HR MARLON Administration Sodium Chloride 10 ml 10/16/24 22:00 10/20/24 05:06 Central Line Flush IV PUSH 10 ml Q8HR MARLON Administration Sodium Chloride 10 ml 10/16/24 14:02 Central Line Flush IV PUSH PRN PRN with TPN bag changes Sodium Chloride 20 ml 10/16/24 14:02 Central Line Flush IV PUSH PRN PRN after blood draws Valproic Acid 750 mg 10/14/24 21:00 10/19/24 20:06 Valproic Acid 250 Mg Capsule PO 750 mg HS MARLON Administration Radiology Results: ITS Impressions Chest CT 10/14/24 09:39 IMPRESSION: 1. Diffuse bronchitis with small regions of tree-in-bud opacity consistent with likely developing pneumonia in the right upper and right lower lobes. Modified Barium Swallow 10/19/24 13:17 IMPRESSION: 1. Aspiration of thin liquids and mildly thick liquids. 2. Please refer to the speech therapy report for recommendations. Chest X-Ray 10/20/24 07:14 Impression: Clear lungs. Support tubes, as above. Labs Labs: Laboratory Results - last 24 hr 10/20/24 10/20/24 10/20/24 00:35 04:53 05:34 WBC RBC Hgb Hct MCV MCH MCHC RDW Plt Count MPV Immature Gran % (Auto) Neut % (Auto) Lymph % (Auto) [place] % (Auto) Eos % (Auto) Baso % (Auto) Lymph # (Auto) [place] # (Auto) Eos # (Auto) Baso # (Auto) Abs Immat Gran (auto) Absolute Neuts (auto) Absolute Nucleated RBC Nucleated RBC % Puncture Site Right radial ABG pH 7.463 H ABG pCO2 35.3 ABG pO2 64.1 L ABG PO2/FiO2 Ratio 1.83 ABG HCO3 24.7 ABG O2 Saturation 93.7 L ABG O2 Content 15.3 L ABG Base Excess 1.2 A-a Gradient 144.4 Oxyhemoglobin 92.7 Total Hemoglobin 11.7 L O2 Delivery Device Nasal cannula O2 Liters/Min 3.5 FiO2 35 Sodium Potassium Chloride Carbon Dioxide Anion Gap BUN Creatinine Estim Creat Clear Calc Estimated GFR Glucose POC Capillary Glucose 98 158 H Calcium Phosphorus Magnesium Total Bilirubin AST ALT Alkaline Phosphatase Total Protein Albumin 10/20/24 10/20/24 05:54 11:44 WBC 15.6 H RBC 3.62 L Hgb 10.8 L Hct 33.2 L MCV 91.7 MCH 29.8 MCHC 32.5 RDW 14.2 Plt Count 301 MPV 10.6 H Immature Gran % (Auto) 0.9 H Neut % (Auto) 84.7 H Lymph % (Auto) 6.1 L [place] % (Auto) 7.0 Eos % (Auto) 1.0 Baso % (Auto) 0.3 Lymph # (Auto) 0.96 [place] # (Auto) 1.1 H Eos # (Auto) 0.2 Baso # (Auto) 0.0 Abs Immat Gran (auto) 0.14 H Absolute Neuts (auto) 13.3 H Absolute Nucleated RBC 0.000 Nucleated RBC % 0.0 Puncture Site ABG pH ABG pCO2 ABG pO2 ABG PO2/FiO2 Ratio ABG HCO3 ABG O2 Saturation ABG O2 Content ABG Base Excess A-a Gradient Oxyhemoglobin Total Hemoglobin O2 Delivery Device O2 Liters/Min FiO2 Sodium 142 Potassium 4.1 Chloride 107 Carbon Dioxide 32 H Anion Gap 3 L BUN 17 Creatinine 0.80 Estim Creat Clear Calc 54 Estimated GFR > 60 Glucose 157 H POC Capillary Glucose 130 H Calcium 8.8 Phosphorus 3.3 Magnesium 1.6 Total Bilirubin 0.5 AST 34 ALT 15 Alkaline Phosphatase 85 Total Protein 7.0 Albumin 3.3 L
[2024-10-20 17:18] LABS: Glucose Point of Care 122 mg/dl (65-105)
[2024-10-20] MEDS: VALPROIC ACID 250 MG CAPSULE 750 MG PO (20:26)
[2024-10-21] VITALS (7 sets, daily range): BP systolic 96–145; BP diastolic 55–76; PULSE 87–100; RESP 16–22; TEMP 37.3–37.9; O2SAT 93–97
[2024-10-21 01:01] LABS: Glucose Point of Care 142 mg/dl (65-105)
[2024-10-21] MEDS: ACETAMINOPHEN 325 MG TABLET 650 MG PO (03:08)
[2024-10-21 05:16] LABS: Glucose Point of Care 127 mg/dl (65-105)
[2024-10-21] MEDS: ACETAMINOPHEN 650 MG SUPPOSITORY RECTAL (05:40)
[2024-10-21 06:11] LABS: Basophils Percent Auto 0.3 % (0.2-1.2); Eosinophils Absolute Auto 0.2 K/mm3 (0-0.3); Eosinophils Percent Auto 1.3 % (0-4.4); Hematocrit 33.2 % (37.0-47.0); Hemoglobin 10.7 g/dL (12.0-15.0); Immature Granulocyte Absolute 0.16 K/mm3 (0.00-0.031); Lymphocytes Absolute Auto 1.19 K/mm3 (0.9-3.2); Lymphocytes Percent Auto 7.5 % (18.3-44.2); Mean Corpuscular HGB Conc 32.2 g/dl (32-36); Mean Platelet Volume 10.9 fl (7.4-10.4); Monocytes Absolute Auto 1.4 K/mm3 (0.1-0.6); Monocytes Percent Auto 9.1 % (2.6-8.5); Neutrophils Absolute Auto 12.8 K/mm3 (1.3-6.7); Neutrophils Percent Auto 80.8 % (45.5-73.1); Platelet Count Result 314 k/mm3 (150-375); Red Blood Count 3.57 M/mm3 (4.2-5.4); Red Cell Distribution Width 14.5 % (11.5-14.5); White Blood Count 15.8 K/mm3 (4.5-10.0)
[2024-10-21 06:31] LABS: Albumin Level 3.4 g/dL (3.5-5.1); Anion Gap 2 mmol/L (4-12); Blood Urea Nitrogen 22 mg/dL (7-17); CRP 4.6 mg/dL (<1.0); Calcium 8.5 mg/dL (8.4-10.2); Carbon Dioxide 32 mmol/L (22-30); Chloride 109 mmol/L (98-107); Estimated CRCL calculation 54 ml/min; Estimated Glomerular Filt Rate > 60; Glucose 116 mg/dL (65-110); Phosphorus 3.2 mg/dL (2.5-4.5); Potassium 4.4 mmol/L (3.4-5.0); Sodium 143 mmol/L (137-145)
[2024-10-21] MEDS: PIPERACILLN/TAZ 3.375GM/NS50ML 3.375 GM/50 ML BAG IVPB ×3 (11:40→23:45)
[2024-10-21] MEDS: ARIPiprazole 10 MG TABLET 20 MG PO (11:43)
[2024-10-21] MEDS: buPROPion HCL XL (24 HR) 150 MG TABCR PO (11:43)
[2024-10-21] MEDS: ENOXAPARIN 40 MG/0.4 ML SYRINGE SUB-Q (11:43)
[2024-10-21 11:44] LABS: Glucose Point of Care 117 mg/dl (65-105)
[2024-10-21] MEDS: FAMOTIDINE 20 MG TABLET PO (11:44)
[2024-10-21] MEDS: ALPRAZolam (*CRX) 0.5 MG TABLET PO ×2 (11:44→18:26)
[2024-10-21] MEDS: THERAPEUTIC MULTIVITAMINS/MINERALS TAB (*BKC) 1 TABLET PO (11:44)
--- NOTE | 2024-10-21 12:06 | PCNFU ---
Nutrition Follow-Up Complete: Swallowing Difficulties as related to mental status as evidenced by NPO. Goal: Meet estimated nutritional needs. Patient is progressing towards goal. We will continue current goal. Pt current nutrition is Jevity 1.2 at 60 ml/hr. Last recorded weight is 55.6 kg, down from 60.2 kg on admit. Bowel Motility: +BM reported 10/20 Labs Reviewed: Glu 116, BUN 22, Alb 3.4, Hct 33.2, Hgb 10.7 Meds Noted: Lovenox, MVI Skin: WNL Additional Notes: Patient remains on NGT feedings of Jevity 1.2 at 60 ml/hr. Tube feedings are being tolerated per nursing. Discussions regarding PEG placement. Tube feedings are providing 1584 kcal/73 gm protein/ 1065 ml water. Flush 30 ml q 4 hours. Agree with diet orders at this time. Will monitor weight, labs, skin, diet orders, meds every Thursday and Thursday.
[2024-10-21 13:26] LABS: MRSA (PCR) NOT DETECTED (NOT DETECTE)
--- NOTE | 2024-10-21 15:08 | PM.IMPN ---
Progress Note: A&P Assessment and Plan (1) Aspiration pneumonia: Code(s): J69.0 - Pneumonitis due to inhalation of food and vomit Status: Acute (2) Respiratory syncytial virus (RSV): Qualifiers: RSV infection type: acute laryngotracheobronchitis Qualified Code(s): J20.5 - Acute bronchitis due to respiratory syncytial virus Code(s): B33.8 - Other specified viral diseases Status: Acute (3) Acute hypoxic respiratory failure: Code(s): J96.01 - Acute respiratory failure with hypoxia Status: Acute (4) Dysphagia: Code(s): R13.10 - Dysphagia, unspecified Status: Acute (5) Schizoaffective disorder: Code(s): F25.9 - Schizoaffective disorder, unspecified Status: Acute (6) Intellectual disability: Code(s): F79 - Unspecified intellectual disabilities Status: Acute Plan Patient brought to the ED with complaint of cough and fever. Patient was recently admitted here for hypoxia possible pulmonary edema about 2 weeks ago. Patient's baseline mental status is alert and oriented times 0-1 and is nonverbal. EMS reported elevated temperature and hypoxia on room air that responded well to 6 L of oxygen. Patient has also been coughing but was nonproductive. Chest x-ray showed mild pulmonary vascular congestion and suggest a mild pulmonary interstitial subpleural edema with normal heart size. Noncontrast CT chest was done which demonstrated diffuse bronchitis small areas of tree-in-bud opacity consistent with likely developing pneumonia and right upper and right lower lobes. Normal WBC count. Patient received 1 L fluid bolus in the ER and was started on cefepime and vancomycin RSV came back positive. Negative for influenza and COVID. Patient did receive 1 dose of cefepime and vancomycin in the ER With ongoing fever restarted on cefepime and doxycycline. Nasal MRSA is negative and hence vancomycin discontinued. Completed 5 day course Patient was started on scheduled nebulizer treatments and some hypertonic saline to help with mucolytic effect. The patient has thick copious secretions in posterior oropharynx. 10/19: Patient has chronic dysphagia and is on a pureed diet at the [place]. Given her disability and the acute setting of infection, there was concern that the patient may not necessarily be protecting her airway. Speech therapy evaluate with MBS showing she has moderate-severe dysphagia and had aspiration with thin and moderately thick fluids. They recommended pureed diet with level 3 liquids. Once she returned to the floor today, RN noted patient with wet cough and RT at bedside for suctioning. She was attempted to give meds with level 3 thickened liquids. Later the patient had thick frothy secretions from nose and mouth and became hypoxic. She was made NPO. Supplemental O2 added. CXR showing asymmetric left sided airspace disease. Spoke with brother and the above findings were discussed. Explained that the patient is having difficulty with secretions and may be weakened from the infection resulting in possible aspiration. Options discussed including GTube placement. He is familiar with this since the patinet has long standing issue with dysphagia and has had GTube in the past. After discussion, plan to place NGT for tube feedings for now. BP was soft this morning so lisinopril was held. BP better now, Recent echo 09/28/2024 with EF 60-65% grade 1 diastolic dysfunction. Mild tricuspid regurgitation. BNP 176. Fluid status positive but I/O's not accurate. Will treat with Lasix x1. Place NGT and start TF. 10/20: Spoke with resp therapy. Secretins much better and her lung exam is improved. She is having fevers and elevated WBC but CXR clear. Tolerating TF. Will hold off on feeding her today but consider trying oral intake tomorrow. Wean O2 as tolerated. Repeat CXR in the morning to assess for development of PNA. If able to eat safely, will remove NGT. If not, GI consult for GTube placement. Monitor off abx for now. 10/21: Patient still with low grade fevers and elevated WBC. CXR showing RLL airspce disease. Suspect aspiration PNA. BCx collected and Zosyn started. MRSA nasal swab negative. Despite the concern for aspiration, she did pass her swallow study. Brother not wanting Peg if possible. Will attempt oral feeding today and over the weekend since she is clinically doing much better. Will follow this weekend so that either we can remove the NGT or plan for Peg on Thursday depending how she fares. Follow speech therapy instructions. DVT prophylaxis Lovenox Code status full code Subjective Date/time seen: 10/21/24 15:08 Interval history: 59yo female with intellectual diability, MDD, dysphagia and schizopaffective disorder here for hypoxia. Patient again with low grade fevers this morning. Patient unable to provide hx. Tolerating TF at goal. She was yelling expletives to RN during a bath and speech was clear per RN. Review of Systems Review of Systems: ROS unobtainable: Yes unobtainable due to medical condition Exam Narrative: Tm 100.3 99.4 145/70 88 16 97% 4L Gen - NARD HEENT - NGT secured. Chest - clear anteriorly to quiet respirations. CV - RRR S1/S2 Abd - Soft, nondistended, no apparent tenderness. Ext - No pedal edema Neuro - more awake. does not follow commands. does not interact with examiner. Skin - Warm and dry Objective Data Vital Signs Vital Signs: Vital Signs - 24 hr 10/20/24 20:00 10/20/24 22:00 10/21/24 05:40 Temperature 99.1 F 100.1 F H Pulse Rate 89 Respiratory Rate 20 Blood Pressure 100/48 L Pulse Oximetry 93 98 Oxygen Delivery Nasal Cannula Oxygen Flow Rate 4 10/21/24 05:25 10/21/24 06:40 10/21/24 14:00 Temperature 100.3 F H 99.2 F 99.4 F Pulse Rate 100 88 Respiratory Rate 20 16 Blood Pressure 96/55 L 145/70 H Pulse Oximetry 96 97 Oxygen Delivery Oxygen Flow Rate Intake/Output Intake/Output: Intake & Output 10/18/24 10/19/24 10/20/24 10/21/24 23:59 23:59 23:59 23:59 Intake Total 640 240 0 50 Output Total 1 4 Balance 640 239 -4 50 Meds/Results Medications: Active Medications Generic Name Dose Route Start Last Admin Trade Name Freq PRN Reason Stop Dose Admin Acetaminophen 650 mg 10/13/24 23:44 10/21/24 05:40 Acetaminophen 650 Mg Suppository RECTAL 650 mg Q6H PRN Administration Mild Pain (1-3) or Fever Acetaminophen 650 mg 10/14/24 08:04 10/21/24 03:08 Acetaminophen 325 Mg Tablet PO 650 mg Q4H PRN Administration pain 1-3 or fever Albuterol/Ipratropium 3 ml 10/20/24 13:49 Ipratropium 0.5 Mg/Albuterol Sulfate 2.5 Mg Ampul.Neb 3 Ml INHALATION Q6HRT PRN Wheezing Alprazolam 0.5 mg 10/14/24 09:00 10/21/24 14:59 Alprazolam (*Crx) 0.5 Mg Tablet PO Not Given TID MARLON Aripiprazole 20 mg 10/14/24 09:00 10/21/24 11:43 Aripiprazole 10 Mg Tablet PO 20 mg QAM MARLON Administration Bupropion HCl 150 mg 10/14/24 09:00 10/21/24 11:43 Bupropion Hcl Xl (24 Hr) 150 Mg Tabcr PO 150 mg QAM MARLON Administration Dextrose 12.5 gm 10/15/24 06:03 10/15/24 06:29 Dextrose 50% 25 Gm/50 Ml Syringe IV PUSH 12.5 gm PRN PRN Administration Hypoglycemia Protocol Enoxaparin Sodium 40 mg 10/15/24 12:00 10/21/24 11:43 Enoxaparin 40 Mg/0.4 Ml Syringe SUB-Q 40 mg DAILY MARLON Administration Famotidine 20 mg 10/14/24 09:00 10/21/24 11:44 Famotidine 20 Mg Tablet PO 20 mg DAILY MARLON Administration Glucose 15 gm 10/15/24 06:03 Glucose Oral Gel 15 Gm Of Glucse In 37.5 Gm Tube PO PRN PRN Hypoglycemia Protocol Piperacillin/Tazobactam/Dextrose 3.375 gm in 50 mls @ 100 mls/hr 10/21/24 07:15 10/21/24 12:10 Zosyn 3.375 Gm/Ns 50 Ml IVPB Infused Q6HR MARLON Infusion Multivitamins/Calcium 1 tablet 10/14/24 09:00 10/21/24 11:44 Therapeutic Multivitamins/Minerals Tab (*Bkc) PO 1 tablet DAILY MARLON Administration Scopolamine 1 patch 10/14/24 17:00 10/20/24 09:32 Scopolamine 1 Mg Patch TRANSDERM 1 patch Q72HR MARLON Administration Sodium Chloride 10 ml 10/16/24 22:00 10/21/24 08:44 Central Line Flush IV PUSH Not Given Q8HR MARLON Sodium Chloride 10 ml 10/16/24 14:02 Central Line Flush IV PUSH PRN PRN with TPN bag changes Sodium Chloride 20 ml 10/16/24 14:02 Central Line Flush IV PUSH PRN PRN after blood draws Valproic Acid 750 mg 10/14/24 21:00 10/20/24 20:26 Valproic Acid 250 Mg Capsule PO 750 mg HS MARLON Administration Radiology Results: ITS Impressions Chest CT 10/14/24 09:39 IMPRESSION: 1. Diffuse bronchitis with small regions of tree-in-bud opacity consistent with likely developing pneumonia in the right upper and right lower lobes. Modified Barium Swallow 10/19/24 13:17 IMPRESSION: 1. Aspiration of thin liquids and mildly thick liquids. 2. Please refer to the speech therapy report for recommendations. Chest X-Ray 10/21/24 06:46 Impression: Mild patchy haziness right lung. Correlate for asymmetric pulmonary edema versus infection. Support tubes, as above. Labs Labs: Laboratory Results - last 24 hr 10/20/24 10/21/24 10/21/24 17:11 00:59 05:09 WBC RBC Hgb Hct MCV MCH MCHC RDW Plt Count MPV Immature Gran % (Auto) Neut % (Auto) Lymph % (Auto) [place] % (Auto) Eos % (Auto) Baso % (Auto) Lymph # (Auto) [place] # (Auto) Eos # (Auto) Baso # (Auto) Abs Immat Gran (auto) Absolute Neuts (auto) Absolute Nucleated RBC Nucleated RBC % Sodium Potassium Chloride Carbon Dioxide Anion Gap BUN Creatinine Estim Creat Clear Calc Estimated GFR Glucose POC Capillary Glucose 122 H 142 H 127 H Calcium Phosphorus C-Reactive Protein Albumin Nasal MRSA (PCR) 10/21/24 10/21/24 10/21/24 06:00 11:36 11:53 WBC 15.8 H RBC 3.57 L Hgb 10.7 L Hct 33.2 L MCV 93.0 MCH 30.0 MCHC 32.2 RDW 14.5 Plt Count 314 MPV 10.9 H Immature Gran % (Auto) 1.0 H Neut % (Auto) 80.8 H Lymph % (Auto) 7.5 L [place] % (Auto) 9.1 H Eos % (Auto) 1.3 Baso % (Auto) 0.3 Lymph # (Auto) 1.19 [place] # (Auto) 1.4 H Eos # (Auto) 0.2 Baso # (Auto) 0.0 Abs Immat Gran (auto) 0.16 H Absolute Neuts (auto) 12.8 H Absolute Nucleated RBC 0.000 Nucleated RBC % 0.0 Sodium 143 Potassium 4.4 Chloride 109 H Carbon Dioxide 32 H Anion Gap 2 L BUN 22 H Creatinine 0.80 Estim Creat Clear Calc 54 Estimated GFR > 60 Glucose 116 H POC Capillary Glucose 117 H Calcium 8.5 Phosphorus 3.2 C-Reactive Protein 4.6 H Albumin 3.4 L Nasal MRSA (PCR) Not detected
[2024-10-21] MEDS: CENTRAL LINE FLUSH 10 ML IV PUSH ×2 (15:30→20:48)
[2024-10-21] MEDS: ALTEPLASE 2 MG VIAL (CATHFLO) IV PUSH (16:40)
[2024-10-21] MEDS: WATER, STERILE FOR INJECTION 10 ML VIAL XX (16:40)
[2024-10-21 18:00] LABS: Glucose Point of Care 109 mg/dl (65-105)
[2024-10-21] MEDS: VALPROIC ACID 250 MG CAPSULE 750 MG PO (20:35)
[2024-10-21 20:41] LABS: Glucose Point of Care 94 mg/dl (65-105)
[2024-10-21 23:52] LABS: Glucose Point of Care 100 mg/dl (65-105)
[2024-10-22] VITALS (8 sets, daily range): BP systolic 90–127; BP diastolic 46–77; PULSE 62–84; RESP 16; TEMP 36.7–37.3; O2SAT 90–95
[2024-10-22] MEDS: PIPERACILLN/TAZ 3.375GM/NS50ML 3.375 GM/50 ML BAG IVPB ×4 (05:40→23:40)
[2024-10-22 05:47] LABS: Basophils Percent Auto 0.3 % (0.2-1.2); Eosinophils Absolute Auto 0.2 K/mm3 (0-0.3); Eosinophils Percent Auto 1.8 % (0-4.4); Hematocrit 32.1 % (37.0-47.0); Hemoglobin 10.5 g/dL (12.0-15.0); Immature Granulocyte Absolute 0.13 K/mm3 (0.00-0.031); Immature Granulocyte Percent A 1.1 % (0-0.5); Lymphocytes Absolute Auto 1.32 K/mm3 (0.9-3.2); Lymphocytes Percent Auto 10.7 % (18.3-44.2); Mean Corpuscular HGB Conc 32.7 g/dl (32-36); Mean Corpuscular Hemoglobin 30.4 pg (26-34); Mean Platelet Volume 10.6 fl (7.4-10.4); Monocytes Absolute Auto 1.3 K/mm3 (0.1-0.6); Monocytes Percent Auto 10.2 % (2.6-8.5); Neutrophils Absolute Auto 9.4 K/mm3 (1.3-6.7); Neutrophils Percent Auto 75.9 % (45.5-73.1); Platelet Count Result 341 k/mm3 (150-375); Red Blood Count 3.45 M/mm3 (4.2-5.4); Red Cell Distribution Width 14.7 % (11.5-14.5); White Blood Count 12.4 K/mm3 (4.5-10.0)
[2024-10-22 06:05] LABS: Alanine Aminotransferase 14 U/L (6-35); Albumin Level 3.5 g/dL (3.5-5.1); Alkaline Phosphatase 89 U/L (38-126); Anion Gap 1 mmol/L (4-12); Aspartate Amino Transferase 29 U/L (14-36); Bilirubin,Total 0.6 mg/dL (0.2-1.3); Blood Urea Nitrogen 23 mg/dL (7-17); Calcium 8.8 mg/dL (8.4-10.2); Carbon Dioxide 32 mmol/L (22-30); Chloride 108 mmol/L (98-107); Estimated CRCL calculation 48 ml/min; Estimated Glomerular Filt Rate > 60; Glucose 95 mg/dL (65-110); Potassium 4.2 mmol/L (3.4-5.0); Sodium 141 mmol/L (137-145)
[2024-10-22 07:08] LABS: Glucose Point of Care 105 mg/dl (65-105)
[2024-10-22] MEDS: CENTRAL LINE FLUSH 10 ML IV PUSH ×3 (07:12→19:47)
[2024-10-22] MEDS: buPROPion HCL XL (24 HR) 150 MG TABCR PO (09:25)
[2024-10-22] MEDS: THERAPEUTIC MULTIVITAMINS/MINERALS TAB (*BKC) 1 TABLET PO (09:26)
[2024-10-22] MEDS: ARIPiprazole 10 MG TABLET 20 MG PO (09:26)
[2024-10-22] MEDS: ALPRAZolam (*CRX) 0.5 MG TABLET PO ×3 (09:27→17:46)
[2024-10-22] MEDS: ENOXAPARIN 40 MG/0.4 ML SYRINGE SUB-Q (09:27)
[2024-10-22] MEDS: FAMOTIDINE 20 MG TABLET PO (09:27)
[2024-10-22 11:46] LABS: Glucose Point of Care 79 mg/dl (65-105)
--- NOTE | 2024-10-22 12:53 | PM.IMPN ---
Progress Note: A&P Assessment and Plan (1) Aspiration pneumonia: Code(s): J69.0 - Pneumonitis due to inhalation of food and vomit Status: Acute (2) Respiratory syncytial virus (RSV): Qualifiers: RSV infection type: acute laryngotracheobronchitis Qualified Code(s): J20.5 - Acute bronchitis due to respiratory syncytial virus Code(s): B33.8 - Other specified viral diseases Status: Acute (3) Acute hypoxic respiratory failure: Code(s): J96.01 - Acute respiratory failure with hypoxia Status: Acute (4) Dysphagia: Code(s): R13.10 - Dysphagia, unspecified Status: Acute (5) Schizoaffective disorder: Code(s): F25.9 - Schizoaffective disorder, unspecified Status: Acute (6) Intellectual disability: Code(s): F79 - Unspecified intellectual disabilities Status: Acute Plan Patient brought to the ED with complaint of cough and fever. Patient was recently admitted here for hypoxia possible pulmonary edema about 2 weeks ago. Patient's baseline mental status is alert and oriented times 0-1 and is nonverbal. EMS reported elevated temperature and hypoxia on room air that responded well to 6 L of oxygen. Patient has also been coughing but was nonproductive. Chest x-ray showed mild pulmonary vascular congestion and suggest a mild pulmonary interstitial subpleural edema with normal heart size. Noncontrast CT chest was done which demonstrated diffuse bronchitis small areas of tree-in-bud opacity consistent with likely developing pneumonia and right upper and right lower lobes. Normal WBC count. Patient received 1 L fluid bolus in the ER and was started on cefepime and vancomycin RSV came back positive. Negative for influenza and COVID. Patient did receive 1 dose of cefepime and vancomycin in the ER With ongoing fever restarted on cefepime and doxycycline. Nasal MRSA is negative and hence vancomycin discontinued. Completed 5 day course Patient was started on scheduled nebulizer treatments and some hypertonic saline to help with mucolytic effect. The patient has thick copious secretions in posterior oropharynx. 10/19: Patient has chronic dysphagia and is on a pureed diet at the [place]. Given her disability and the acute setting of infection, there was concern that the patient may not necessarily be protecting her airway. Speech therapy evaluate with MBS showing she has moderate-severe dysphagia and had aspiration with thin and moderately thick fluids. They recommended pureed diet with level 3 liquids. Once she returned to the floor today, RN noted patient with wet cough and RT at bedside for suctioning. She was attempted to give meds with level 3 thickened liquids. Later the patient had thick frothy secretions from nose and mouth and became hypoxic. She was made NPO. Supplemental O2 added. CXR showing asymmetric left sided airspace disease. Spoke with brother and the above findings were discussed. Explained that the patient is having difficulty with secretions and may be weakened from the infection resulting in possible aspiration. Options discussed including GTube placement. He is familiar with this since the patinet has long standing issue with dysphagia and has had GTube in the past. After discussion, plan to place NGT for tube feedings for now. BP was soft this morning so lisinopril was held. BP better now, Recent echo 09/28/2024 with EF 60-65% grade 1 diastolic dysfunction. Mild tricuspid regurgitation. BNP 176. Fluid status positive but I/O's not accurate. Will treat with Lasix x1. Place NGT and start TF. 10/20: Spoke with resp therapy. Secretins much better and her lung exam is improved. She is having fevers and elevated WBC but CXR clear. Tolerating TF. Will hold off on feeding her today but consider trying oral intake tomorrow. Wean O2 as tolerated. Repeat CXR in the morning to assess for development of PNA. If able to eat safely, will remove NGT. If not, GI consult for GTube placement. Monitor off abx for now. 10/21: Patient still with low grade fevers and elevated WBC. CXR showing RLL airspace disease. Suspect aspiration PNA. BCx collected and Zosyn started. MRSA nasal swab negative. Despite the concern for aspiration, she did pass her swallow study. Brother not wanting Peg if possible. Will attempt oral feeding today and over the weekend since she is clinically doing much better. Will follow this weekend so that either we can remove the NGT or plan for Peg on Thursday depending how she fares. Follow speech therapy instructions. 10/22: Patient appears to be able to tolerate oral intake now since cough better. But total oral intake poor. Long discussion with brother. Hospital course discussed. Options discussed including hospice care and he wished to proceed with PEG tube. GI consult. DVT prophylaxis Lovenox Code status full code Subjective Date/time seen: 10/22/24 12:53 Interval history: 59yo female with intellectual diability, MDD, dysphagia and schizopaffective disorder here for hypoxia. Patient unable to provide hx. Patient able to eat and tolerate this well but not eating much. Review of Systems Review of Systems: ROS unobtainable: Yes unobtainable due to mental status Exam Narrative: AF 98.8 127/77 62 16 92% 2L Gen - NARD HEENT - NGT secured. Chest - coarse BS anteriorly, nml RR CV - RRR S1/S2 Abd - Soft, +BS, no apparent tenderness Ext - No pedal edema Neuro - more awake. does not follow commands. does not interact with examiner. Skin - Warm and dry Objective Data Vital Signs Vital Signs: Vital Signs - 24 hr 10/21/24 14:00 10/21/24 22:00 10/21/24 20:00 Temperature 99.4 F 99.2 F Pulse Rate 88 87 Respiratory Rate 16 22 H Blood Pressure 145/70 H 105/76 Pulse Oximetry 97 93 93 Oxygen Delivery Nasal Cannula Oxygen Flow Rate 4 Fraction of Inspired Oxygen 10/22/24 06:00 10/22/24 08:26 10/22/24 09:22 Temperature 98.8 F Pulse Rate 62 Respiratory Rate 16 Blood Pressure 127/77 Pulse Oximetry 90 92 92 Oxygen Delivery Nasal Cannula Nasal Cannula Oxygen Flow Rate 2 2 Fraction of Inspired Oxygen 28 Intake/Output Intake/Output: Intake & Output 10/19/24 10/20/24 10/21/24 10/22/24 23:59 23:59 23:59 23:59 Intake Total 240 0 220 200 Output Total 1 4 Balance 239 -4 220 200 Meds/Results Medications: Active Medications Generic Name Dose Route Start Last Admin Trade Name Freq PRN Reason Stop Dose Admin Acetaminophen 650 mg 10/13/24 23:44 10/21/24 05:40 Acetaminophen 650 Mg Suppository RECTAL 650 mg Q6H PRN Administration Mild Pain (1-3) or Fever Acetaminophen 650 mg 10/14/24 08:04 10/21/24 03:08 Acetaminophen 325 Mg Tablet PO 650 mg Q4H PRN Administration pain 1-3 or fever Albuterol/Ipratropium 3 ml 10/20/24 13:49 Ipratropium 0.5 Mg/Albuterol Sulfate 2.5 Mg Ampul.Neb 3 Ml INHALATION Q6HRT PRN Wheezing Alprazolam 0.5 mg 10/14/24 09:00 10/22/24 09:27 Alprazolam (*Crx) 0.5 Mg Tablet PO 0.5 mg TID MARLON Administration Alteplase, Recombinant 2 mg 10/21/24 15:45 10/21/24 16:40 Alteplase 2 Mg Vial (Cathflo) IV PUSH 2 mg ONCE PRN Administration Line Occlusion Aripiprazole 20 mg 10/14/24 09:00 10/22/24 09:26 Aripiprazole 10 Mg Tablet PO 20 mg QAM MARLON Administration Bupropion HCl 150 mg 10/14/24 09:00 10/22/24 09:25 Bupropion Hcl Xl (24 Hr) 150 Mg Tabcr PO 150 mg QAM MARLON Administration Dextrose 12.5 gm 10/15/24 06:03 10/15/24 06:29 Dextrose 50% 25 Gm/50 Ml Syringe IV PUSH 12.5 gm PRN PRN Administration Hypoglycemia Protocol Enoxaparin Sodium 40 mg 10/15/24 12:00 10/22/24 09:27 Enoxaparin 40 Mg/0.4 Ml Syringe SUB-Q 40 mg DAILY MARLON Administration Famotidine 20 mg 10/14/24 09:00 10/22/24 09:27 Famotidine 20 Mg Tablet PO 20 mg DAILY MARLON Administration Glucose 15 gm 10/15/24 06:03 Glucose Oral Gel 15 Gm Of Glucse In 37.5 Gm Tube PO PRN PRN Hypoglycemia Protocol Piperacillin/Tazobactam/Dextrose 3.375 gm in 50 mls @ 100 mls/hr 10/21/24 07:15 10/22/24 06:10 Zosyn 3.375 Gm/Ns 50 Ml IVPB Infused Q6HR MARLON Infusion Multivitamins/Calcium 1 tablet 10/14/24 09:00 10/22/24 09:26 Therapeutic Multivitamins/Minerals Tab (*Bkc) PO 1 tablet DAILY MARLON Administration Scopolamine 1 patch 10/14/24 17:00 10/20/24 09:32 Scopolamine 1 Mg Patch TRANSDERM 1 patch Q72HR MARLON Administration Sodium Chloride 10 ml 10/16/24 22:00 10/22/24 07:12 Central Line Flush IV PUSH 10 ml Q8HR MARLON Administration Sodium Chloride 10 ml 10/16/24 14:02 Central Line Flush IV PUSH PRN PRN with TPN bag changes Sodium Chloride 20 ml 10/16/24 14:02 Central Line Flush IV PUSH PRN PRN after blood draws Valproic Acid 750 mg 10/14/24 21:00 10/21/24 20:35 Valproic Acid 250 Mg Capsule PO 750 mg HS MARLON Administration Radiology Results: ITS Impressions Chest CT 10/14/24 09:39 IMPRESSION: 1. Diffuse bronchitis with small regions of tree-in-bud opacity consistent with likely developing pneumonia in the right upper and right lower lobes. Modified Barium Swallow 10/19/24 13:17 IMPRESSION: 1. Aspiration of thin liquids and mildly thick liquids. 2. Please refer to the speech therapy report for recommendations. Chest X-Ray 10/21/24 06:46 Impression: Mild patchy haziness right lung. Correlate for asymmetric pulmonary edema versus infection. Support tubes, as above. Labs Labs: Laboratory Results - last 24 hr 10/21/24 10/21/24 10/21/24 11:53 17:55 20:00 WBC RBC Hgb Hct MCV MCH MCHC RDW Plt Count MPV Immature Gran % (Auto) Neut % (Auto) Lymph % (Auto) [place] % (Auto) Eos % (Auto) Baso % (Auto) Lymph # (Auto) [place] # (Auto) Eos # (Auto) Baso # (Auto) Abs Immat Gran (auto) Absolute Neuts (auto) Absolute Nucleated RBC Nucleated RBC % Sodium Potassium Chloride Carbon Dioxide Anion Gap BUN Creatinine Estim Creat Clear Calc Estimated GFR Glucose POC Capillary Glucose 109 H 94 Calcium Total Bilirubin AST ALT Alkaline Phosphatase Total Protein Albumin Nasal MRSA (PCR) Not detected 10/21/24 10/22/24 10/22/24 23:48 05:32 05:36 WBC 12.4 H RBC 3.45 L Hgb 10.5 L Hct 32.1 L MCV 93.0 MCH 30.4 MCHC 32.7 RDW 14.7 H Plt Count 341 MPV 10.6 H Immature Gran % (Auto) 1.1 H Neut % (Auto) 75.9 H Lymph % (Auto) 10.7 L [place] % (Auto) 10.2 H Eos % (Auto) 1.8 Baso % (Auto) 0.3 Lymph # (Auto) 1.32 [place] # (Auto) 1.3 H Eos # (Auto) 0.2 Baso # (Auto) 0.0 Abs Immat Gran (auto) 0.13 H Absolute Neuts (auto) 9.4 H Absolute Nucleated RBC 0.000 Nucleated RBC % 0.0 Sodium 141 Potassium 4.2 Chloride 108 H Carbon Dioxide 32 H Anion Gap 1 L BUN 23 H Creatinine 0.90 Estim Creat Clear Calc 48 Estimated GFR > 60 Glucose 95 POC Capillary Glucose 100 105 Calcium 8.8 Total Bilirubin 0.6 AST 29 ALT 14 Alkaline Phosphatase 89 Total Protein 7.0 Albumin 3.5 Nasal MRSA (PCR) 10/22/24 11:41 WBC RBC Hgb Hct MCV MCH MCHC RDW Plt Count MPV Immature Gran % (Auto) Neut % (Auto) Lymph % (Auto) [place] % (Auto) Eos % (Auto) Baso % (Auto) Lymph # (Auto) [place] # (Auto) Eos # (Auto) Baso # (Auto) Abs Immat Gran (auto) Absolute Neuts (auto) Absolute Nucleated RBC Nucleated RBC % Sodium Potassium Chloride Carbon Dioxide Anion Gap BUN Creatinine Estim Creat Clear Calc Estimated GFR Glucose POC Capillary Glucose 79 Calcium Total Bilirubin AST ALT Alkaline Phosphatase Total Protein Albumin Nasal MRSA (PCR)
[2024-10-22 18:33] LABS: Glucose Point of Care 114 mg/dl (65-105)
[2024-10-22] MEDS: VALPROIC ACID 250 MG CAPSULE 750 MG PO (19:46)
[2024-10-23] VITALS (7 sets, daily range): BP systolic 101–128; BP diastolic 58–84; PULSE 74–93; RESP 16–18; TEMP 36.7–37; O2SAT 94–96
[2024-10-23 00:12] LABS: Glucose Point of Care 153 mg/dl (65-105)
[2024-10-23] MEDS: PIPERACILLN/TAZ 3.375GM/NS50ML 3.375 GM/50 ML BAG IVPB ×4 (05:42→23:18)
[2024-10-23 06:14] LABS: Glucose Point of Care 127 mg/dl (65-105)
[2024-10-23 06:14] LABS: Basophils Percent Auto 0.3 % (0.2-1.2); Eosinophils Absolute Auto 0.3 K/mm3 (0-0.3); Eosinophils Percent Auto 2.4 % (0-4.4); Hematocrit 31.9 % (37.0-47.0); Hemoglobin 10.1 g/dL (12.0-15.0); Immature Granulocyte Absolute 0.13 K/mm3 (0.00-0.031); Immature Granulocyte Percent A 1.1 % (0-0.5); Lymphocytes Absolute Auto 1.32 K/mm3 (0.9-3.2); Lymphocytes Percent Auto 11.2 % (18.3-44.2); Mean Corpuscular HGB Conc 31.7 g/dl (32-36); Mean Corpuscular Hemoglobin 29.6 pg (26-34); Mean Corpuscular Volume 93.5 fl (80-100); Mean Platelet Volume 11.1 fl (7.4-10.4); Monocytes Percent Auto 8.5 % (2.6-8.5); Neutrophils Absolute Auto 9.1 K/mm3 (1.3-6.7); Neutrophils Percent Auto 76.5 % (45.5-73.1); Platelet Count Result 377 k/mm3 (150-375); Red Blood Count 3.41 M/mm3 (4.2-5.4); Red Cell Distribution Width 14.6 % (11.5-14.5); White Blood Count 11.8 K/mm3 (4.5-10.0)
[2024-10-23] MEDS: CENTRAL LINE FLUSH 10 ML IV PUSH ×3 (06:16→20:00)
[2024-10-23 06:20] LABS: Albumin Level 3.4 g/dL (3.5-5.1); Anion Gap 2 mmol/L (4-12); Blood Urea Nitrogen 27 mg/dL (7-17); Calcium 8.7 mg/dL (8.4-10.2); Carbon Dioxide 33 mmol/L (22-30); Chloride 108 mmol/L (98-107); Estimated CRCL calculation 48 ml/min; Estimated Glomerular Filt Rate > 60; Glucose 128 mg/dL (65-110); Magnesium 2.3 mg/dL (1.6-2.3); Phosphorus 3.1 mg/dL (2.5-4.5); Potassium 4.3 mmol/L (3.4-5.0); Sodium 143 mmol/L (137-145)
[2024-10-23] MEDS: THERAPEUTIC MULTIVITAMINS/MINERALS TAB (*BKC) 1 TABLET PO (08:38)
[2024-10-23] MEDS: buPROPion HCL XL (24 HR) 150 MG TABCR PO (08:38)
[2024-10-23] MEDS: FAMOTIDINE 20 MG TABLET PO (08:38)
[2024-10-23] MEDS: ENOXAPARIN 40 MG/0.4 ML SYRINGE SUB-Q (08:38)
[2024-10-23] MEDS: ARIPiprazole 10 MG TABLET 20 MG PO (08:38)
[2024-10-23] MEDS: ALPRAZolam (*CRX) 0.5 MG TABLET PO ×3 (08:38→18:11)
[2024-10-23] MEDS: SCOPOLAMINE 1 MG PATCH 1 PATCH TRANSDERM (08:38)
--- NOTE | 2024-10-23 10:40 | P.PNIM_ITS ---
Progress Note: A&P Assessment and Plan (1) Aspiration pneumonia: Code(s): J69.0 - Pneumonitis due to inhalation of food and vomit Status: Acute (2) Respiratory syncytial virus (RSV): Qualifiers: RSV infection type: acute laryngotracheobronchitis Qualified Code(s): J20.5 - Acute bronchitis due to respiratory syncytial virus Code(s): B33.8 - Other specified viral diseases Status: Acute (3) Acute hypoxic respiratory failure: Code(s): J96.01 - Acute respiratory failure with hypoxia Status: Acute (4) Dysphagia: Code(s): R13.10 - Dysphagia, unspecified Status: Acute (5) Schizoaffective disorder: Code(s): F25.9 - Schizoaffective disorder, unspecified Status: Acute (6) Intellectual disability: Code(s): F79 - Unspecified intellectual disabilities Status: Acute Plan Patient brought to the ED with complaint of cough and fever. Patient was recently admitted here for hypoxia possible pulmonary edema about 2 weeks ago. Patient's baseline mental status is alert and oriented times 0-1 and is nonverbal. EMS reported elevated temperature and hypoxia on room air that responded well to 6 L of oxygen. Patient has also been coughing but was nonproductive. Chest x-ray showed mild pulmonary vascular congestion and suggest a mild pulmonary interstitial subpleural edema with normal heart size. Noncontrast CT chest was done which demonstrated diffuse bronchitis small areas of tree-in-bud opacity consistent with likely developing pneumonia and right upper and right lower lobes. Normal WBC count. Patient received 1 L fluid bolus in the ER and was started on cefepime and vancomycin RSV came back positive. Negative for influenza and COVID. Patient did receive 1 dose of cefepime and vancomycin in the ER With ongoing fever restarted on cefepime and doxycycline. Nasal MRSA is negative and hence vancomycin discontinued. Completed 5 day course Patient was started on scheduled nebulizer treatments and some hypertonic saline to help with mucolytic effect. The patient has thick copious secretions in posterior oropharynx. 10/19: Patient has chronic dysphagia and is on a pureed diet at the [facility]. Given her disability and the acute setting of infection, there was concern that the patient may not necessarily be protecting her airway. Speech therapy evaluate with MBS showing she has moderate-severe dysphagia and had aspiration with thin and moderately thick fluids. They recommended pureed diet with level 3 liquids. Once she returned to the floor today, RN noted patient with wet cough and RT at bedside for suctioning. She was attempted to give meds with level 3 thickened liquids. Later the patient had thick frothy secretions from nose and mouth and became hypoxic. She was made NPO. Supplemental O2 added. CXR showing asymmetric left sided airspace disease. Spoke with brother and the above findings were discussed. Explained that the patient is having difficulty with secretions and may be weakened from the infection resulting in possible aspiration. Options discussed including GTube placement. He is familiar with this since the patinet has long standing issue with dysphagia and has had GTube in the past. After discussion, plan to place NGT for tube feedings for now. BP was soft this morning so lisinopril was held. BP better now, Recent echo 09/28/2024 with EF 60-65% grade 1 diastolic dysfunction. Mild tricuspid regurgitation. BNP 176. Fluid status positive but I/O's not accurate. Will treat with Lasix x1. Place NGT and start TF. 10/20: Spoke with resp therapy. Secretins much better and her lung exam is improved. She is having fevers and elevated WBC but CXR clear. Tolerating TF. Will hold off on feeding her today but consider trying oral intake tomorrow. Wean O2 as tolerated. Repeat CXR in the morning to assess for development of PNA. If able to eat safely, will remove NGT. If not, GI consult for GTube placement. Monitor off abx for now. 10/21: Patient still with low grade fevers and elevated WBC. CXR showing RLL airspace disease. Suspect aspiration PNA. BCx collected and Zosyn started. MRSA nasal swab negative. Despite the concern for aspiration, she did pass her swallow study. Brother not wanting Peg if possible. Will attempt oral feeding today and over the weekend since she is clinically doing much better. Will follow this weekend so that either we can remove the NGT or plan for Peg on Thursday depending how she fares. Follow speech therapy instructions. 10/22: Patient appears to be able to tolerate oral intake now since cough better. But total oral intake poor. Long discussion with brother. Hospital course discussed. Options discussed including hospice care and he wished to proceed with PEG tube. GI consult. 10/23: No change. Plan for PEG tube tomorrow. She can still work with Speech therapy. NPO after midnight. Hold Lovenox. Continue Zosyn. DVT prophylaxis Lovenox Code status full code Subjective Date/time seen: 10/23/24 10:40 Interval history: 59yo female with intellectual diability, MDD, dysphagia and schizopaffective disorder here for hypoxia. Patient unable to provide hx. Patient tolerating TF Review of Systems Review of Systems: ROS unobtainable: Yes unobtainable due to mental status Exam Narrative: AF 98.0 128/58 84 16 95% 2L Gen - NARD HEENT - NGT secured. Chest - coarse BS anteriorly, nml RR, wet cough CV - RRR S1/S2 Abd - Soft, +BS, no apparent tenderness Ext - No pedal edema Neuro - more awake. does not follow commands. does not interact with examiner. Skin - Warm and dry Objective Data Vital Signs Vital Signs: Vital Signs - 24 hr 10/22/24 14:00 10/22/24 17:07 10/22/24 19:56 Temperature 98.1 F 99.2 F Pulse Rate 80 80 Respiratory Rate 16 16 Blood Pressure 90/46 L 112/68 103/60 Pulse Oximetry 94 94 Oxygen Delivery Oxygen Flow Rate 10/22/24 20:00 10/22/24 22:00 10/23/24 06:00 Temperature 98.2 F 98.0 F Pulse Rate 84 84 Respiratory Rate 16 16 Blood Pressure 127/60 128/58 L Pulse Oximetry 94 95 95 Oxygen Delivery Nasal Cannula Oxygen Flow Rate 2 Intake/Output Intake/Output: Intake & Output 10/20/24 10/21/24 10/22/24 10/23/24 23:59 23:59 23:59 23:59 Intake Total 0 220 300 150 Output Total 4 0 Balance -4 220 300 150 Meds/Results Medications: Active Medications Generic Name Dose Route Start Last Admin Trade Name Freq PRN Reason Stop Dose Admin Acetaminophen 650 mg 10/13/24 23:44 10/21/24 05:40 Acetaminophen 650 Mg Suppository RECTAL 650 mg Q6H PRN Administration Mild Pain (1-3) or Fever Acetaminophen 650 mg 10/14/24 08:04 10/21/24 03:08 Acetaminophen 325 Mg Tablet PO 650 mg Q4H PRN Administration pain 1-3 or fever Albuterol/Ipratropium 3 ml 10/20/24 13:49 Ipratropium 0.5 Mg/Albuterol Sulfate 2.5 Mg Ampul.Neb 3 Ml INHALATION Q6HRT PRN Wheezing Alprazolam 0.5 mg 10/14/24 09:00 10/23/24 08:38 Alprazolam (*Crx) 0.5 Mg Tablet PO 0.5 mg TID MARLON Administration Alteplase, Recombinant 2 mg 10/21/24 15:45 10/21/24 16:40 Alteplase 2 Mg Vial (Cathflo) IV PUSH 2 mg ONCE PRN Administration Line Occlusion Aripiprazole 20 mg 10/14/24 09:00 10/23/24 08:38 Aripiprazole 10 Mg Tablet PO 20 mg QAM MARLON Administration Bupropion HCl 150 mg 10/14/24 09:00 10/23/24 08:38 Bupropion Hcl Xl (24 Hr) 150 Mg Tabcr PO 150 mg QAM MARLON Administration Dextrose 12.5 gm 10/15/24 06:03 10/15/24 06:29 Dextrose 50% 25 Gm/50 Ml Syringe IV PUSH 12.5 gm PRN PRN Administration Hypoglycemia Protocol Enoxaparin Sodium 40 mg 10/15/24 12:00 10/23/24 08:38 Enoxaparin 40 Mg/0.4 Ml Syringe SUB-Q 40 mg DAILY MARLON Administration Famotidine 20 mg 10/14/24 09:00 10/23/24 08:38 Famotidine 20 Mg Tablet PO 20 mg DAILY MARLON Administration Glucose 15 gm 10/15/24 06:03 Glucose Oral Gel 15 Gm Of Glucse In 37.5 Gm Tube PO PRN PRN Hypoglycemia Protocol Piperacillin/Tazobactam/Dextrose 3.375 gm in 50 mls @ 100 mls/hr 10/21/24 07:15 10/23/24 06:16 Zosyn 3.375 Gm/Ns 50 Ml IVPB Infused Q6HR MARLON Infusion Multivitamins/Calcium 1 tablet 10/14/24 09:00 10/23/24 08:38 Therapeutic Multivitamins/Minerals Tab (*Bkc) PO 1 tablet DAILY MARLON Administration Scopolamine 1 patch 10/14/24 17:00 10/23/24 08:38 Scopolamine 1 Mg Patch TRANSDERM 1 patch Q72HR MARLON Administration Sodium Chloride 10 ml 10/16/24 22:00 10/23/24 06:16 Central Line Flush IV PUSH 10 ml Q8HR MARLON Administration Sodium Chloride 10 ml 10/16/24 14:02 Central Line Flush IV PUSH PRN PRN with TPN bag changes Sodium Chloride 20 ml 10/16/24 14:02 Central Line Flush IV PUSH PRN PRN after blood draws Valproic Acid 750 mg 10/14/24 21:00 10/22/24 19:46 Valproic Acid 250 Mg Capsule PO 750 mg HS MARLON Administration Radiology Results: ITS Impressions Chest CT 10/14/24 09:39 IMPRESSION: 1. Diffuse bronchitis with small regions of tree-in-bud opacity consistent with likely developing pneumonia in the right upper and right lower lobes. Modified Barium Swallow 10/19/24 13:17 IMPRESSION: 1. Aspiration of thin liquids and mildly thick liquids. 2. Please refer to the speech therapy report for recommendations. Chest X-Ray 10/21/24 06:46 Impression: Mild patchy haziness right lung. Correlate for asymmetric pulmonary edema versus infection. Support tubes, as above. Labs Labs: Laboratory Results - last 24 hr 10/22/24 10/22/24 10/23/24 11:41 18:30 00:09 WBC RBC Hgb Hct MCV MCH MCHC RDW Plt Count MPV Immature Gran % (Auto) Neut % (Auto) Lymph % (Auto) [place] % (Auto) Eos % (Auto) Baso % (Auto) Lymph # (Auto) [place] # (Auto) Eos # (Auto) Baso # (Auto) Abs Immat Gran (auto) Absolute Neuts (auto) Absolute Nucleated RBC Nucleated RBC % Sodium Potassium Chloride Carbon Dioxide Anion Gap BUN Creatinine Estim Creat Clear Calc Estimated GFR Glucose POC Capillary Glucose 79 114 H 153 H Calcium Phosphorus Magnesium Albumin 10/23/24 10/23/24 05:40 06:11 WBC 11.8 H RBC 3.41 L Hgb 10.1 L Hct 31.9 L MCV 93.5 MCH 29.6 MCHC 31.7 L RDW 14.6 H Plt Count 377 H MPV 11.1 H Immature Gran % (Auto) 1.1 H Neut % (Auto) 76.5 H Lymph % (Auto) 11.2 L [place] % (Auto) 8.5 Eos % (Auto) 2.4 Baso % (Auto) 0.3 Lymph # (Auto) 1.32 [place] # (Auto) 1.0 H Eos # (Auto) 0.3 Baso # (Auto) 0.0 Abs Immat Gran (auto) 0.13 H Absolute Neuts (auto) 9.1 H Absolute Nucleated RBC 0.000 Nucleated RBC % 0.0 Sodium 143 Potassium 4.3 Chloride 108 H Carbon Dioxide 33 H Anion Gap 2 L BUN 27 H Creatinine 0.90 Estim Creat Clear Calc 48 Estimated GFR > 60 Glucose 128 H POC Capillary Glucose 127 H Calcium 8.7 Phosphorus 3.1 Magnesium 2.3 Albumin 3.4 L
[2024-10-23 11:49] LABS: Glucose Point of Care 145 mg/dl (65-105)
--- NOTE | 2024-10-23 15:43 | WPDGICN ---
Assessment and Plan Assessment and plan (1) Dysphagia: Code(s): R13.10 - Dysphagia, unspecified Status: Acute Assessment and Plan: skilled nursing patient on total care, she has chronic dysphagia and admitted again with respiratory problem will placed PEG tomorrow, brother is agreeable then npo status and will ask dietitian for formula recommendations I do not anticipate that dysphagia will improve (2) Aspiration pneumonia: Code(s): J69.0 - Pneumonitis due to inhalation of food and vomit Status: Acute Assessment and Plan: on treatment (3) Intellectual disability: Code(s): F79 - Unspecified intellectual disabilities Status: Acute (4) Respiratory syncytial virus (RSV): Qualifiers: RSV infection type: acute laryngotracheobronchitis Qualified Code(s): J20.5 - Acute bronchitis due to respiratory syncytial virus Code(s): B33.8 - Other specified viral diseases Status: Acute (5) Acute hypoxic respiratory failure: Code(s): J96.01 - Acute respiratory failure with hypoxia Status: Acute GI Consult Note Consult date/time: 10/23/24 15:43 Reason for consult: dysphagia HPI: Amanda Cabrera is a 59 year old female with past medical history of intellectual disability, schizoaffective disorder, major depressive disorder, dementia and recent hospitalization for transit hypoxic respiratory failure back to the ER from [facility] skilled nursing due to hypoxia few days ago. Admitted with respiratory failure due to RSV, then also noted aspiration pneumonia. Patient has been hardly eating (she had chronic dysphagia) and high risk for aspiration. Primary team talked to brother and agreeable for PEG placement. Review of Systems Review of Systems: ROS unobtainable: Yes unobtainable due to mental status PMFSH Past Medical History Medical History (Updated 10/21/24 @ 18:11 by Desmond Ro MD) Anxiety disorder Epilepsy Intellectual disability Major depressive disorder Schizoaffective disorder Surgical History Surgical History Surgical history unknown Family History Family History Other Unknown family medical history Social History Social History Social History: Code status: Full code (per skilled nursing documentation) Smoking status: Unknown if ever smoked Spiritual care concerns: No Meds Home Medications and Allergies Home Medications Medication Instructions Recorded Confirmed Type acetaminophen 325 mg tablet 650 mg PO Q4H PRN pain or fever 09/27/24 10/14/24 History alprazolam 0.5 mg tablet (Xanax) 0.5 mg PO TID 09/27/24 10/14/24 History aripiprazole 20 mg tablet 20 mg PO DAILY 09/27/24 10/14/24 History bupropion HCl 150 mg 24 hr tablet, 150 mg PO QAM 09/27/24 10/14/24 History extended release (Wellbutrin XL) famotidine 20 mg tablet 20 mg PO DAILY 09/27/24 10/14/24 History lisinopril 10 mg tablet 10 mg PO DAILY 09/27/24 10/14/24 History medroxyprogesterone 150 mg/mL 150 mg IM ONCE 09/27/24 10/14/24 History intramuscular suspension (Depo-Provera) multivitamin-iron 9 mg-folic acid 1 tablet PO DAILY 09/27/24 10/14/24 History 400 mcg-calcium and minerals tablet nystatin 1 billion unit oral powder 1 unit PO BID 09/27/24 10/14/24 History valproic acid 250 mg capsule 750 mg PO HS 09/27/24 10/14/24 History Allergies Allergy/AdvReac Type Severity Reaction Status Date / Time No Known Allergies Allergy Verified 09/27/24 22:08 Vital Signs Vital Signs - 24 hr 10/22/24 17:07 10/22/24 19:56 10/22/24 20:00 Temperature 99.2 F Pulse Rate 80 Respiratory Rate 16 Blood Pressure 112/68 103/60 Pulse Oximetry 94 94 Oxygen Delivery Nasal Cannula Oxygen Flow Rate 2 10/22/24 22:00 10/23/24 06:00 10/23/24 08:35 Temperature 98.2 F 98.0 F Pulse Rate 84 84 Respiratory Rate 16 16 Blood Pressure 127/60 128/58 L Pulse Oximetry 95 95 95 Oxygen Delivery Nasal Cannula Oxygen Flow Rate 2 10/23/24 11:24 10/23/24 14:00 Temperature 98.6 F Pulse Rate 78 Respiratory Rate 16 Blood Pressure 101/66 Pulse Oximetry 94 96 Oxygen Delivery Nasal Cannula Oxygen Flow Rate 2 Exam Narrative: Gen - no distress, chronically ill appearing HEENT - NGT secured, on tube feeding. neck supple Chest - coarse BS anteriorly, nml RR CV - RRR S1/S2 Abd - Soft, +BS, no apparent tenderness Ext - No pedal edema Neuro - does not follow commands. does not interact with examiner. Skin - Warm and dry psych- unable to assess Results Labs 10/23/24 05:40 10/23/24 05:40 Labs: Short CBC 10/23/24 Range/Units 05:40 WBC 11.8 H (4.5-10.0) K/mm3 Hgb 10.1 L (12.0-15.0) g/dL Hct 31.9 L (37.0-47.0) % Plt Count 377 H (150-375) k/mm3 BMP 10/23/24 05:40 Sodium 143 Potassium 4.3 Chloride 108 H Carbon Dioxide 33 H BUN 27 H Creatinine 0.90 Glucose 128 H Calcium 8.7 Liver Function 10/23/24 Range/Units 05:40 Albumin 3.4 L (3.5-5.1) g/dL
[2024-10-23 17:56] LABS: Glucose Point of Care 96 mg/dl (65-105)
[2024-10-23] MEDS: VALPROIC ACID 250 MG CAPSULE 750 MG PO (19:59)
[2024-10-23 20:45] LABS: Glucose Point of Care 140 mg/dl (65-105)
[2024-10-24] VITALS (11 sets, daily range): BP systolic 84–157; BP diastolic 45–92; PULSE 67–90; RESP 14–25; TEMP 36.5–37.3; O2SAT 91–100
[2024-10-24] MEDS: PIPERACILLN/TAZ 3.375GM/NS50ML 3.375 GM/50 ML BAG IVPB ×2 (05:07→11:17)
[2024-10-24] MEDS: CENTRAL LINE FLUSH 10 ML IV PUSH ×3 (05:10→20:00)
[2024-10-24 05:54] LABS: Glucose Point of Care 104 mg/dl (65-105)
[2024-10-24] MEDS: ARIPiprazole 10 MG TABLET 20 MG PO (08:18)
[2024-10-24] MEDS: ALPRAZolam (*CRX) 0.5 MG TABLET PO ×3 (08:18→17:27)
[2024-10-24] MEDS: buPROPion HCL XL (24 HR) 150 MG TABCR PO (08:18)
[2024-10-24] MEDS: FAMOTIDINE 20 MG TABLET PO (08:18)
[2024-10-24 08:23] LABS: Hematocrit 31.4 % (37.0-47.0); Mean Corpuscular HGB Conc 31.8 g/dl (32-36); Mean Corpuscular Hemoglobin 29.7 pg (26-34); Mean Corpuscular Volume 93.2 fl (80-100); Mean Platelet Volume 10.5 fl (7.4-10.4); Platelet Count Result 407 k/mm3 (150-375); Red Blood Count 3.37 M/mm3 (4.2-5.4); Red Cell Distribution Width 14.6 % (11.5-14.5); White Blood Count 11.7 K/mm3 (4.5-10.0)
[2024-10-24 08:34] LABS: Anion Gap 5 mmol/L (4-12); Blood Urea Nitrogen 24 mg/dL (7-17); Calcium 9.2 mg/dL (8.4-10.2); Carbon Dioxide 31 mmol/L (22-30); Chloride 108 mmol/L (98-107); Estimated CRCL calculation 48 ml/min; Estimated Glomerular Filt Rate > 60; Glucose 96 mg/dL (65-110); Potassium 4.5 mmol/L (3.4-5.0); Sodium 144 mmol/L (137-145)
[2024-10-24 08:54] LABS: Valproic Acid 23.7 ug/mL (50-120)
--- NOTE | 2024-10-24 11:40 | PC.NURSE ---
To GI Lab for Peg tube placement.
[2024-10-24] MEDS: LACTATED RINGERS 1,000 ML 150 ML IV CONT (11:48)
--- NOTE | 2024-10-24 11:57 | WPDHPUPDATE1 ---
History and Physical Update Update Date/Time: 10/24/24 11:57 History and Physical has been reviewed, including an updated exam of the patient. There are NO changes in the patient's condition. Risks, benefits, and alternatives have been discussed with family and questions answered. Patient agrees to proceed with procedure.
--- NOTE | 2024-10-24 11:59 | P.PNAN_ITS ---
Anes - Initial Pre Proc Eval Procedure: Operation Date: 10/24/24 15:30 Proposed Procedures p Percutaneous Endoscopic Gastrostomy - Sebastian Mathis MD Date/Time: 10/24/24 11:59 Surgeon: Flaquita Delgadillo DO Pre Op Diagnosis: Acute hypoxic respiratory failure, RSV Patient Data Age: 59 Gender: F Height: 1.6 m Weight: 55.2 kg Last Vital Signs Temp 97.7 F 10/24/24 11:51 Pulse 90 10/24/24 11:51 Resp 16 10/24/24 11:51 BP 157/92 H 10/24/24 11:51 Pulse Ox 94 10/24/24 11:51 O2 Del Method Nasal Cannula 10/24/24 11:51 O2 Flow Rate 2 10/24/24 11:51 FiO2 28 10/24/24 08:59 Allergies Allergy/AdvReac Type Severity Reaction Status Date / Time No Known Allergies Allergy Verified 09/27/24 22:08 Home Medications Medication Instructions Recorded Confirmed Type acetaminophen 325 mg tablet 650 mg PO Q4H PRN pain or fever 09/27/24 10/14/24 History alprazolam 0.5 mg tablet (Xanax) 0.5 mg PO TID 09/27/24 10/14/24 History aripiprazole 20 mg tablet 20 mg PO DAILY 09/27/24 10/14/24 History bupropion HCl 150 mg 24 hr tablet, 150 mg PO QAM 09/27/24 10/14/24 History extended release (Wellbutrin XL) famotidine 20 mg tablet 20 mg PO DAILY 09/27/24 10/14/24 History lisinopril 10 mg tablet 10 mg PO DAILY 09/27/24 10/14/24 History medroxyprogesterone 150 mg/mL 150 mg IM ONCE 09/27/24 10/14/24 History intramuscular suspension (Depo-Provera) multivitamin-iron 9 mg-folic acid 1 tablet PO DAILY 09/27/24 10/14/24 History 400 mcg-calcium and minerals tablet nystatin 1 billion unit oral powder 1 unit PO BID 09/27/24 10/14/24 History valproic acid 250 mg capsule 750 mg PO HS 09/27/24 10/14/24 History Laboratory Tests 10/23/24 10/23/24 10/24/24 17:53 20:42 05:51 WBC RBC Hgb Hct MCV MCH MCHC RDW Plt Count MPV Sodium Potassium Chloride Carbon Dioxide Anion Gap BUN Creatinine Estim Creat Clear Calc Estimated GFR Glucose POC Capillary Glucose 96 mg/dl 140 H mg/dl 104 mg/dl (65-105) (65-105) (65-105) Calcium Valproic Acid 10/24/24 08:11 WBC 11.7 H K/mm3 (4.5-10.0) RBC 3.37 L M/mm3 (4.2-5.4) Hgb 10.0 L g/dL (12.0-15.0) Hct 31.4 L % (37.0-47.0) MCV 93.2 fl (80-100) MCH 29.7 pg (26-34) MCHC 31.8 L g/dl (32-36) RDW 14.6 H % (11.5-14.5) Plt Count 407 H k/mm3 (150-375) MPV 10.5 H fl (7.4-10.4) Sodium 144 mmol/L (137-145) Potassium 4.5 mmol/L (3.4-5.0) Chloride 108 H mmol/L (98-107) Carbon Dioxide 31 H mmol/L (22-30) Anion Gap 5 mmol/L (4-12) BUN 24 H mg/dL (7-17) Creatinine 0.90 mg/dL (0.7-1.0) Estim Creat Clear Calc 48 ml/min Estimated GFR > 60 (59 - ) Glucose 96 mg/dL (65-110) POC Capillary Glucose Calcium 9.2 mg/dL (8.4-10.2) Valproic Acid 23.7 L ug/mL (50-120) Patient hx anesthesia problems: none Family hx anesthesia problems: none Results Review: All pre-operative results and documents have been reviewed as part of the pre- operative evaluation. [facility] Past Medical History Medical History (Updated 10/21/24 @ 18:11 by Desmond Ro MD) Anxiety disorder Epilepsy Intellectual disability Major depressive disorder Schizoaffective disorder Surgical History Surgical History Surgical history unknown Family History Family History Other Unknown family medical history Social History Social History Social History: Code status: Full code (per correction documentation) Smoking status: Unknown if ever smoked Spiritual care concerns: No Anes - Eval Final PreProcedure Day of Procedure 10/24/24 11:59 Patient weight: normal Heart: regular rate and rhythm Lungs: clear to auscultation Airway: Mallampati scale (unknown; does not cooperate) Neurological: alert and oriented Last oral intake: >/= 8 hours ASA classification: IV Emergent: no Anesthetic plan: proceed Anesthesia type and monitoring: general GIVS and standard monitoring Results Review: All pre-operative results and documents have been reviewed as part of the pre-o perative evaluation. Informed Consent: The patient's anesthetic plan and its attendant risks and benefits were discussed with the patient/family/POA. Questions were solicited and answers provided to the satisfaction of the patient/family/POA.
--- NOTE | 2024-10-24 13:05 | PC.NURSE ---
Returned from GI lab via stretcher.
--- NOTE | 2024-10-24 13:24 | PM.IMPN ---
Progress Note: A&P Assessment and Plan (1) Aspiration pneumonia: Code(s): J69.0 - Pneumonitis due to inhalation of food and vomit Status: Acute (2) Respiratory syncytial virus (RSV): Qualifiers: RSV infection type: acute laryngotracheobronchitis Qualified Code(s): J20.5 - Acute bronchitis due to respiratory syncytial virus Code(s): B33.8 - Other specified viral diseases Status: Acute (3) Acute hypoxic respiratory failure: Code(s): J96.01 - Acute respiratory failure with hypoxia Status: Acute (4) Dysphagia: Code(s): R13.10 - Dysphagia, unspecified Status: Acute (5) Schizoaffective disorder: Code(s): F25.9 - Schizoaffective disorder, unspecified Status: Acute (6) Intellectual disability: Code(s): F79 - Unspecified intellectual disabilities Status: Acute Plan Patient brought to the ED with complaint of cough and fever. Patient was recently admitted here for hypoxia possible pulmonary edema about 2 weeks ago. Patient's baseline mental status is alert and oriented times 0-1 and is nonverbal. EMS reported elevated temperature and hypoxia on room air that responded well to 6 L of oxygen. Patient has also been coughing but was nonproductive. Chest x-ray showed mild pulmonary vascular congestion and suggest a mild pulmonary interstitial subpleural edema with normal heart size. Noncontrast CT chest was done which demonstrated diffuse bronchitis small areas of tree-in-bud opacity consistent with likely developing pneumonia and right upper and right lower lobes. Normal WBC count. Patient received 1 L fluid bolus in the ER and was started on cefepime and vancomycin RSV came back positive. Negative for influenza and COVID. Patient did receive 1 dose of cefepime and vancomycin in the ER With ongoing fever restarted on cefepime and doxycycline. Nasal MRSA is negative and hence vancomycin discontinued. Completed 5 day course Patient was started on scheduled nebulizer treatments and some hypertonic saline to help with mucolytic effect. The patient has thick copious secretions in posterior oropharynx. 10/19: Patient has chronic dysphagia and is on a pureed diet at the [place]. Given her disability and the acute setting of infection, there was concern that the patient may not necessarily be protecting her airway. Speech therapy evaluate with MBS showing she has moderate-severe dysphagia and had aspiration with thin and moderately thick fluids. They recommended pureed diet with level 3 liquids. Once she returned to the floor today, RN noted patient with wet cough and RT at bedside for suctioning. She was attempted to give meds with level 3 thickened liquids. Later the patient had thick frothy secretions from nose and mouth and became hypoxic. She was made NPO. Supplemental O2 added. CXR showing asymmetric left sided airspace disease. Spoke with brother and the above findings were discussed. Explained that the patient is having difficulty with secretions and may be weakened from the infection resulting in possible aspiration. Options discussed including GTube placement. He is familiar with this since the patinet has long standing issue with dysphagia and has had GTube in the past. After discussion, plan to place NGT for tube feedings for now. BP was soft this morning so lisinopril was held. BP better now, Recent echo 09/28/2024 with EF 60-65% grade 1 diastolic dysfunction. Mild tricuspid regurgitation. BNP 176. Fluid status positive but I/O's not accurate. Will treat with Lasix x1. Place NGT and start TF. 10/20: Spoke with resp therapy. Secretins much better and her lung exam is improved. She is having fevers and elevated WBC but CXR clear. Tolerating TF. Will hold off on feeding her today but consider trying oral intake tomorrow. Wean O2 as tolerated. Repeat CXR in the morning to assess for development of PNA. If able to eat safely, will remove NGT. If not, GI consult for GTube placement. Monitor off abx for now. 10/21: Patient still with low grade fevers and elevated WBC. CXR showing RLL airspace disease. Suspect aspiration PNA. BCx collected and Zosyn started. MRSA nasal swab negative. Despite the concern for aspiration, she did pass her swallow study. Brother not wanting Peg if possible. Will attempt oral feeding today and over the weekend since she is clinically doing much better. Will follow this weekend so that either we can remove the NGT or plan for Peg on Thursday depending how she fares. Follow speech therapy instructions. 10/22: Patient appears to be able to tolerate oral intake now since cough better. But total oral intake poor. Long discussion with brother. Hospital course discussed. Options discussed including hospice care and he wished to proceed with PEG tube. GI consult. 10/23: No change. Plan for PEG tube tomorrow. She can still work with Speech therapy. NPO after midnight. Hold Lovenox. Continue Zosyn. 10/24: PE placed today. Resume tube feeding (now vis PEG). Dietary consult for TF instructions. Plan to discharge tomorrow back to longterm. Continue home meds via GTube. Okay to have patient swallow long acting agents. She should still work with speech therapy after discharge. Currently on Zosyn. MRSA nasal swab negative. WBC wsa down trending but about the same today. Change Augmentin to complete a 7 days course. DVT prophylaxis Lovenox Code status full code Subjective Date/time seen: 10/24/24 13:24 Interval history: 59yo female with intellectual diability, MDD, dysphagia and schizopaffective disorder here for hypoxia. Patient unable to provide hx. Just back from her PEG placement. No issues per RN Exam Narrative: AF 97.7 95/45 76 19 95% 2L Gen - NARD HEENT - NGT secured. Chest - dry cough. clear anteriorly CV - RRR S1/S2 Abd - Soft, GTube site clean, dry and intact Ext - No pedal edema Neuro - awake. nonverbal. does not follow commands Skin - Warm and dry Objective Data Vital Signs Vital Signs: Vital Signs - 24 hr 10/23/24 14:00 10/23/24 20:00 10/23/24 21:37 Temperature 98.6 F 98.2 F Pulse Rate 78 93 Respiratory Rate 16 18 Blood Pressure 101/66 101/60 Pulse Oximetry 96 95 95 Oxygen Delivery Nasal Cannula Oxygen Flow Rate 2 Fraction of Inspired Oxygen 10/23/24 22:11 10/24/24 06:00 10/24/24 08:59 Temperature 98.0 F 99.2 F Pulse Rate 74 68 Respiratory Rate 18 18 Blood Pressure 105/84 111/69 Pulse Oximetry 94 100 95 Oxygen Delivery Nasal Cannula Oxygen Flow Rate 2 Fraction of Inspired Oxygen 28 10/24/24 08:18 10/24/24 11:51 10/24/24 12:24 Temperature 97.7 F Pulse Rate 90 84 Respiratory Rate 18 16 25 H Blood Pressure 157/92 H 84/65 L Pulse Oximetry 95 94 91 Oxygen Delivery Nasal Cannula Nasal Cannula Nasal Cannula Oxygen Flow Rate 2 2 6 Fraction of Inspired Oxygen 10/24/24 12:34 10/24/24 12:44 Temperature Pulse Rate 86 76 Respiratory Rate 25 H 19 Blood Pressure 91/54 L 95/45 L Pulse Oximetry 92 95 Oxygen Delivery Nasal Cannula Nasal Cannula Oxygen Flow Rate 6 6 Fraction of Inspired Oxygen Intake/Output Intake/Output: Intake & Output 10/21/24 10/22/24 10/23/24 10/24/24 23:59 23:59 23:59 23:59 Intake Total 220 300 300 300.0 Output Total 0 150 0 Balance 220 300 150 300.0 Meds/Results Medications: Active Medications Generic Name Dose Route Start Last Admin Trade Name Freq PRN Reason Stop Dose Admin Acetaminophen 650 mg 10/13/24 23:44 10/21/24 05:40 Acetaminophen 650 Mg Suppository RECTAL 650 mg Q6H PRN Administration Mild Pain (1-3) or Fever Acetaminophen 650 mg 10/14/24 08:04 10/21/24 03:08 Acetaminophen 325 Mg Tablet PO 650 mg Q4H PRN Administration pain 1-3 or fever Albuterol/Ipratropium 3 ml 10/20/24 13:49 Ipratropium 0.5 Mg/Albuterol Sulfate 2.5 Mg Ampul.Neb 3 Ml INHALATION Q6HRT PRN Wheezing Alprazolam 0.5 mg 10/14/24 09:00 10/24/24 13:17 Alprazolam (*Crx) 0.5 Mg Tablet PO 0.5 mg TID MARLON Administration Alteplase, Recombinant 2 mg 10/21/24 15:45 10/21/24 16:40 Alteplase 2 Mg Vial (Cathflo) IV PUSH 2 mg ONCE PRN Administration Line Occlusion Aripiprazole 20 mg 10/14/24 09:00 10/24/24 08:18 Aripiprazole 10 Mg Tablet PO 20 mg QAM MARLON Administration Bupropion HCl 150 mg 10/14/24 09:00 10/24/24 08:18 Bupropion Hcl Xl (24 Hr) 150 Mg Tabcr PO 150 mg QAM MARLON Administration Dextrose 12.5 gm 10/15/24 06:03 10/15/24 06:29 Dextrose 50% 25 Gm/50 Ml Syringe IV PUSH 12.5 gm PRN PRN Administration Hypoglycemia Protocol Enoxaparin Sodium 40 mg 10/15/24 12:00 10/23/24 08:38 Enoxaparin 40 Mg/0.4 Ml Syringe SUB-Q 40 mg DAILY MARLON Administration Famotidine 20 mg 10/14/24 09:00 10/24/24 08:18 Famotidine 20 Mg Tablet PO 20 mg DAILY MARLON Administration Glucose 15 gm 10/15/24 06:03 Glucose Oral Gel 15 Gm Of Glucse In 37.5 Gm Tube PO PRN PRN Hypoglycemia Protocol Piperacillin/Tazobactam/Dextrose 3.375 gm in 50 mls @ 100 mls/hr 10/21/24 07:15 10/24/24 11:47 Zosyn 3.375 Gm/Ns 50 Ml IVPB Infused Q6HR MARLON Infusion Multivitamins/Calcium 1 tablet 10/14/24 09:00 10/24/24 08:19 Therapeutic Multivitamins/Minerals Tab (*Bkc) PO Not Given DAILY MARLON Scopolamine 1 patch 10/14/24 17:00 10/23/24 08:38 Scopolamine 1 Mg Patch TRANSDERM 1 patch Q72HR MARLON Administration Sodium Chloride 10 ml 10/16/24 22:00 10/24/24 13:17 Central Line Flush IV PUSH 10 ml Q8HR MARLON Administration Sodium Chloride 10 ml 10/16/24 14:02 Central Line Flush IV PUSH PRN PRN with TPN bag changes Sodium Chloride 20 ml 10/16/24 14:02 Central Line Flush IV PUSH PRN PRN after blood draws Valproic Acid 750 mg 10/14/24 21:00 10/23/24 19:59 Valproic Acid 250 Mg Capsule PO 750 mg HS MARLON Administration Radiology Results: ITS Impressions Chest CT 10/14/24 09:39 IMPRESSION: 1. Diffuse bronchitis with small regions of tree-in-bud opacity consistent with likely developing pneumonia in the right upper and right lower lobes. Modified Barium Swallow 10/19/24 13:17 IMPRESSION: 1. Aspiration of thin liquids and mildly thick liquids. 2. Please refer to the speech therapy report for recommendations. Chest X-Ray 10/21/24 06:46 Impression: Mild patchy haziness right lung. Correlate for asymmetric pulmonary edema versus infection. Support tubes, as above. Labs Labs: Laboratory Results - last 24 hr 10/23/24 10/23/24 10/24/24 17:53 20:42 05:51 WBC RBC Hgb Hct MCV MCH MCHC RDW Plt Count MPV Sodium Potassium Chloride Carbon Dioxide Anion Gap BUN Creatinine Estim Creat Clear Calc Estimated GFR Glucose POC Capillary Glucose 96 140 H 104 Calcium Valproic Acid 10/24/24 08:11 WBC 11.7 H RBC 3.37 L Hgb 10.0 L Hct 31.4 L MCV 93.2 MCH 29.7 MCHC 31.8 L RDW 14.6 H Plt Count 407 H MPV 10.5 H Sodium 144 Potassium 4.5 Chloride 108 H Carbon Dioxide 31 H Anion Gap 5 BUN 24 H Creatinine 0.90 Estim Creat Clear Calc 48 Estimated GFR > 60 Glucose 96 POC Capillary Glucose Calcium 9.2 Valproic Acid 23.7 L
[2024-10-24 14:31] LABS: Glucose Point of Care 94 mg/dl (65-105)
--- NOTE | 2024-10-24 14:35 | PCDIET ---
Nutrition note: PEG was placed today, TF to restart at 1800 per MD. Orders put in: Jevity 1.2 @ goal rate 60 ml/h. Start at 30 ml and advance 10 ml q 4 h. Flush 100 ml q 4 hours. Total 1584 kcal, 73 g protein, 1065 ml free water. 1665 ml total free water. Meets EER at 100%.
[2024-10-24 18:07] LABS: Glucose Point of Care 86 mg/dl (65-105)
[2024-10-24] MEDS: VALPROIC ACID 250 MG CAPSULE 750 MG PO (19:57)
[2024-10-24] MEDS: AMOXICILLIN/CLAVULANATE K 875-125 MG TAB 1 TABLET FEED TUBE (19:58)
[2024-10-24] MEDS: ACETAMINOPHEN 325 MG TABLET 650 MG PO (19:58)
[2024-10-24 23:59] LABS: Glucose Point of Care 106 mg/dl (65-105)
[2024-10-25 06:00] VITALS: BP 155/86; PULSE 81; RESP 14; TEMP 37.3; O2SAT 97
[2024-10-25] MEDS: CENTRAL LINE FLUSH 10 ML IV PUSH ×2 (06:00→13:08)
[2024-10-25 06:32] LABS: Glucose Point of Care 111 mg/dl (65-105)
[2024-10-25] MEDS: ENOXAPARIN 40 MG/0.4 ML SYRINGE SUB-Q (08:08)
[2024-10-25] MEDS: ARIPiprazole 10 MG TABLET 20 MG PO (08:08)
[2024-10-25] MEDS: AMOXICILLIN/CLAVULANATE K 875-125 MG TAB 1 TABLET FEED TUBE ×2 (08:09→19:49)
[2024-10-25] MEDS: FAMOTIDINE 20 MG TABLET PO (08:09)
[2024-10-25] MEDS: buPROPion HCL XL (24 HR) 150 MG TABCR PO (08:09)
[2024-10-25] MEDS: ALPRAZolam (*CRX) 0.5 MG TABLET PO ×3 (08:09→16:16)
[2024-10-25] MEDS: THERAPEUTIC MULTIVITAMINS/MINERALS TAB (*BKC) 1 TABLET PO (08:09)
[2024-10-25 08:10] VITALS: RESP 14; O2SAT 97
[2024-10-25 12:21] LABS: Glucose Point of Care 113 mg/dl (65-105)
--- NOTE | 2024-10-25 13:43 | PCNFU ---
Nutrition Follow-Up Complete: Swallowing Difficulties as related to mental status as evidenced by NPO. Goal: Meet estimated nutritional needs. Patient is meeting goal. No new goal. Pt current nutrition is Jevity 1.2 at 60 ml/hr. Last recorded weight is 55.6 kg, down from 60.2 kg. on admit. Bowel Motility: +BM reported 10/25 Labs Reviewed: No new labs to report. Meds Noted: MVI, Zosyn, Lovenox. Skin: WNL Additional Notes: Patient current with PEG tube feedings of Jevity 1.2 at 60 ml/hr, providing 1584 kcal/73 gm protein/1065 ml water. Flush 100 ml q 4 hours. Tube feedings are being tolerated per nursing. Plans for transfer back to [place] at discharge. Agree with diet orders. Will monitor weight, labs, skin, diet orders, meds every Thursday and Thursday. .
--- NOTE | 2024-10-25 13:52 | WPDANESPN ---
Anes - Prog Note Post-Op Date/Time: 10/25/24 13:52 Cardiovascular status: normal Respiratory status: normal Airway patency: baseline Mental status: baseline Post-Op hydration status: normal Vital Signs: Last Vital Signs Temp 99.1 F 10/25/24 06:00 Pulse 81 10/25/24 06:00 Resp 14 10/25/24 08:10 BP 155/86 H 10/25/24 06:00 Pulse Ox 97 10/25/24 08:10 O2 Del Method Nasal Cannula 10/25/24 08:10 O2 Flow Rate 2 10/25/24 08:10 FiO2 28 10/25/24 08:10 Pain Score (VAS): 0/10 I/O: Intake & Output 10/24/24 10/25/24 10/25/24 23:59 07:59 15:59 Intake Total 100 Balance 100 Laboratory Tests 10/24/24 08:11 10/24/24 08:11 10/24/24 10/24/24 10/24/24 14:28 18:04 23:56 POC Capillary Glucose 94 86 106 H 10/25/24 10/25/24 04:46 12:15 POC Capillary Glucose 111 H 113 H Post-procedural complaints: none Patient Feedback: Patient satisfied with anesthetic care.
[2024-10-25 14:00] VITALS: BP 110/54; PULSE 53; RESP 18; TEMP 36.8; O2SAT 94
--- NOTE | 2024-10-25 14:56 | PM.DS ---
DS: Admitting Diagnosis Discharge Date 10/25/24 Admitting Diagnosis Hypoxia DS: Discharge Diagnosis Discharge Diagnosis (1) Aspiration pneumonia: Code(s): J69.0 - Pneumonitis due to inhalation of food and vomit Status: Acute (2) Respiratory syncytial virus (RSV): Qualifiers: RSV infection type: acute laryngotracheobronchitis Qualified Code(s): J20.5 - Acute bronchitis due to respiratory syncytial virus Code(s): B33.8 - Other specified viral diseases Status: Acute (3) Acute hypoxic respiratory failure: Code(s): J96.01 - Acute respiratory failure with hypoxia Status: Acute (4) Dysphagia: Code(s): R13.10 - Dysphagia, unspecified Status: Acute (5) Schizoaffective disorder: Code(s): F25.9 - Schizoaffective disorder, unspecified Status: Acute (6) Intellectual disability: Code(s): F79 - Unspecified intellectual disabilities Status: Acute DS: Summary Hospital Course Reason for hospitalization: 59yo female with intellectual diability, MDD, dysphagia and schizopaffective disorder here for hypoxia. Please see H&p for detials. Hospital Course: Patient brought to the ED with complaint of cough and fever and found to be hypoxic. Chest x-ray showed mild pulmonary vascular congestion and suggest a mild pulmonary interstitial subpleural edema with normal heart size. Noncontrast CT chest was done which demonstrated diffuse bronchitis small areas of tree-in-bud opacity consistent with likely developing pneumonia and right upper and right lower lobes. Normal WBC count. Patient received 1 L fluid bolus in the ER and was started on cefepime and vancomycin RSV came back positive. Negative for influenza and COVID. Nasal MRSA is negative and hence vancomycin discontinued. Completed 5 day course of abx. Patient has chronic dysphagia and is on a pureed diet at the [place]. Given her disability and the acute setting of infection, there was concern that the patient may not necessarily be protecting her airway. Speech therapy evaluate with MBS showing she has moderate-severe dysphagia and had aspiration with thin and moderately thick fluids. They recommended pureed diet with level 3 liquids. Once she returned to the floor, patient with wet cough and RT at bedside for suctioning. She was attempted to give meds with level 3 thickened liquids. Later the patient had thick frothy secretions from nose and mouth and became hypoxic. She was made NPO. Supplemental O2 added. CXR showing asymmetric left sided airspace disease. Spoke with brother and the above findings were discussed. Explained that the patient is having difficulty with secretions and may be weakened from the infection resulting in possible aspiration. Options discussed including GTube placement. He is familiar with this since the patinet has long standing issue with dysphagia and has had GTube in the past. NGT placed for tube feedings. Recent echo 09/28/2024 with EF 60-65% grade 1 diastolic dysfunction. Mild tricuspid regurgitation. BNP 176. Fluid status positive but I/O's not accurate. Treated with Lasix IV. Secretins much better and her lung exam improved. She began to have fevers and elevated WBC but CXR was clear. Repeat CXR showing RLL airspace disease. Suspect aspiration PNA. BCx collected and Zosyn started. MRSA nasal swab negative. We attempted oral feeding and she was able to tolerate some oral intake now since cough better. But total oral intake poor. Long discussion with brother. Hospital course discussed. Options discussed including hospice care and he wished to proceed with PEG tube. GI consulted and PEG tube placed 10/24/24. She toelrated this well. Tube feedings (now vis PEG) resumed. Dietary consult for TF instructions. WBC trended down and fever resolved. She overall did well and was able to be discharged on 10/25/24. Discussed with brother and all questins answered. Status at Discharge Cognitive/behavioral status at discharge: stable Time Spent with Patient Time attestation: Total time spent providing and/or coordinating discharge services: 35 minutes Time spent: Greater than 30 minutes Exam Narrative: AF 98.2 110/54 53 18 94% 2L Gen - NARD Chest - lungs clear anteriorly CV - RRR S1/S2 Abd - Soft, GTube site clean, dry and intact Ext - No pedal edema Neuro - awake. nonverbal. does not follow commands Skin - Warm and dry DS: Data Data Completed and Pending Labs on day of discharge: Labs from last 24 hours 10/25/24 10/25/24 10/24/24 12:15 04:46 23:56 POC Capillary Glucose 113 H 111 H 106 H 10/24/24 18:04 POC Capillary Glucose 86 Preliminary micro results at discharge 10/21/24 08:36 Blood Culture - Preliminary Blood 10/21/24 08:22 Blood Culture - Preliminary Blood Discharge Plan Discharge Attending physician on discharge: Desmond Ro Consulting providers: Sebastian Mathis Discharging Clinician: Desmond Ro Anticipated Discharge Date/Time: 10/25/24 15:07 Patient Disposition: NH Detention/Asst Living Activity: as tolerated Diet: tube feeding Discharge Instructions: Routine GTube care. Wear abdominal binder at all times except for hygiene. Continue current tube feeding instructions. Okay for oral feeding: Pureed diet (level 4) and mildly thick (level 2) liquids Avoid NSAIDs (ibuprofen, naproxen, Aleve). Tylenol is safe to take. Oxygen at 2Liters. Wean oxygen to keep Spo2 > 92%. Follow-up with the provider at the facility. Please evaluate for PT/OT/ST. Thank you for using [facility] for your health care needs. Patient Instructions: Antibiotic Form, RSV (Respiratory Syncytial Virus) Infection (GEN) Patient Language: Lithuanian Stand Alone Forms: General Discharge Information Follow-up/Referrals: Prakash,MD Nabil [Primary Care Provider] - Discharge Medications: New amoxicillin-pot clavulanate 875-125 mg tablet 1 tablet feeding tube Q12H Qty: 6 0RF Continued valproic acid 250 mg Capsule 750 mg PO HS medroxyprogesterone [Depo-Provera] 150 mg/mL Suspension 150 mg IM ONCE Rx Instructions: On the 10th day of the month of January, Apr, Jul, Dec bupropion HCl [Wellbutrin XL] 150 mg Tablet Extended Release 24 Hr 150 mg PO QAM Changed alprazolam [Xanax] 0.5 mg Tablet 0.5 mg feeding tube TID Qty: 10 0RF acetaminophen 325 mg Tablet 650 mg feeding tube Q4H PRN (Reason: pain or fever) Qty: 10 0RF aripiprazole 20 mg Tablet 20 mg feeding tube DAILY Qty: 10 0RF [id number]-[id number] 9 mg iron-400 mcg Tablet 1 tablet feeding tube DAILY Qty: 10 0RF famotidine 20 mg Tablet 20 mg feeding tube DAILY Qty: 10 0RF Held lisinopril 10 mg Tablet 10 mg PO DAILY Hold Instructions: HOLD - resume when okay with provider Discontinued nystatin 1 billion unit Powder 1 unit PO BID Rx Instructions: apply to groin and buttocks Date of admission: 10/14/24 03:03 Primary Care Provider: MaryNabil Admitting Provider: Flaquita Delgadillo Attending physician on admission: Flaquita Delgadillo Condition: Stable Hospitalist MIPS Heart Failure (Exclusion) Patient has history of Heart Transplant or Left Ventricular Assistive Device?: No IF YES, STOP HERE Heart Failure (Qualifier) Patient has current or prior documentation of LVEF less than or equal to 40%, or mod/servere depressed LVSF?: No IF NO, STOP HERE
[2024-10-25] MEDS: NEOMYCIN/POLYMYXIN/BACITRACIN OINTMENT PACKET 1 PACKET (16:25)
--- NOTE | 2024-10-25 17:05 | WPDGIPROGNO ---
Progress Note: A&P Assessment and Plan (1) Dysphagia: Code(s): R13.10 - Dysphagia, unspecified Status: Acute Assessment and Plan: s/p peg placement (she used to have PEG previously), tolerating tube feeding will follow as needed (2) Aspiration pneumonia: Code(s): J69.0 - Pneumonitis due to inhalation of food and vomit Status: Acute Assessment and Plan: treated (3) Acute hypoxic respiratory failure: Code(s): J96.01 - Acute respiratory failure with hypoxia Status: Acute (4) Intellectual disability: Code(s): F79 - Unspecified intellectual disabilities Status: Acute Assessment and Plan: needs total care Subjective Date/time seen: 10/25/24 17:05 Interval history: tolerating tube feeding at 60 ml/h Review of Systems Review of Systems: All systems reviewed & are unremarkable except as noted in HPI and below Exam Narrative: Gen - no distress, chronically ill appearing HEENT - dry mouth neck supple Chest - coarse BS anteriorly CV - RRR S1/S2 Abd - Soft, +BS, no apparent tenderness, PEG in place Ext - No pedal edema Neuro - does not follow commands. does not interact with examiner. Skin - Warm and dry psych- unable to assess Objective Data Vital Signs Vital Signs: Vital Signs - 24 hr 10/24/24 20:00 10/24/24 21:00 10/25/24 06:00 Temperature 98.4 F 99.1 F Pulse Rate 67 81 Respiratory Rate 14 14 Blood Pressure 92/48 L 155/86 H Pulse Oximetry 95 93 97 Oxygen Delivery Nasal Cannula Oxygen Flow Rate 2 Fraction of Inspired Oxygen 10/25/24 08:10 10/25/24 14:00 Temperature 98.2 F Pulse Rate 53 L Respiratory Rate 14 18 Blood Pressure 110/54 L Pulse Oximetry 97 94 Oxygen Delivery Nasal Cannula Oxygen Flow Rate 2 Fraction of Inspired Oxygen 28 Intake/Output Intake/Output: Intake & Output 10/22/24 10/23/24 10/24/24 10/25/24 23:59 23:59 23:59 23:59 Intake Total 300 300 400.0 Output Total 0 150 0 Balance 300 150 400.0 Meds/Results Medications: Active Medications Generic Name Dose Route Start Last Admin Trade Name Freq PRN Reason Stop Dose Admin Acetaminophen 650 mg 10/13/24 23:44 10/21/24 05:40 Acetaminophen 650 Mg Suppository RECTAL 650 mg Q6H PRN Administration Mild Pain (1-3) or Fever Acetaminophen 650 mg 10/14/24 08:04 10/24/24 19:58 Acetaminophen 325 Mg Tablet PO 650 mg Q4H PRN Administration pain 1-3 or fever Albuterol/Ipratropium 3 ml 10/20/24 13:49 Ipratropium 0.5 Mg/Albuterol Sulfate 2.5 Mg Ampul.Neb 3 Ml INHALATION Q6HRT PRN Wheezing Alprazolam 0.5 mg 10/14/24 09:00 10/25/24 16:16 Alprazolam (*Crx) 0.5 Mg Tablet PO 0.5 mg TID MARLON Administration Alteplase, Recombinant 2 mg 10/21/24 15:45 10/21/24 16:40 Alteplase 2 Mg Vial (Cathflo) IV PUSH 2 mg ONCE PRN Administration Line Occlusion Amoxicillin/Clavulanate Potassium 1 tablet 10/24/24 21:00 10/25/24 08:09 Amoxicillin/Clavulanate K 875-125 Mg Tab FEED TUBE 10/28/24 09:01 1 tablet Q12HR MARLON Administration Aripiprazole 20 mg 10/14/24 09:00 10/25/24 08:08 Aripiprazole 10 Mg Tablet PO 20 mg QAM MARLON Administration Bupropion HCl 150 mg 10/14/24 09:00 10/25/24 08:09 Bupropion Hcl Xl (24 Hr) 150 Mg Tabcr PO 150 mg QAM MARLON Administration Dextrose 12.5 gm 10/15/24 06:03 10/15/24 06:29 Dextrose 50% 25 Gm/50 Ml Syringe IV PUSH 12.5 gm PRN PRN Administration Hypoglycemia Protocol Enoxaparin Sodium 40 mg 10/15/24 12:00 10/25/24 08:08 Enoxaparin 40 Mg/0.4 Ml Syringe SUB-Q 40 mg DAILY MARLON Administration Famotidine 20 mg 10/14/24 09:00 10/25/24 08:09 Famotidine 20 Mg Tablet PO 20 mg DAILY MARLON Administration Glucose 15 gm 10/15/24 06:03 Glucose Oral Gel 15 Gm Of Glucse In 37.5 Gm Tube PO PRN PRN Hypoglycemia Protocol Guaifenesin/Dextromethorphan 10 ml 10/24/24 13:35 Guaifenesin/Dextromethorphan 10 Ml Udc FEED TUBE Q4H PRN Cough Multivitamins/Calcium 1 tablet 10/14/24 09:00 10/25/24 08:09 Therapeutic Multivitamins/Minerals Tab (*Bkc) PO 1 tablet DAILY MARLON Administration Sodium Chloride 10 ml 10/16/24 22:00 10/25/24 13:08 Central Line Flush IV PUSH 10 ml Q8HR MARLON Administration Sodium Chloride 10 ml 10/16/24 14:02 Central Line Flush IV PUSH PRN PRN with TPN bag changes Sodium Chloride 20 ml 10/16/24 14:02 Central Line Flush IV PUSH PRN PRN after blood draws Valproic Acid 750 mg 10/14/24 21:00 10/24/24 19:57 Valproic Acid 250 Mg Capsule PO 750 mg HS MARLON Administration Radiology Results: ITS Impressions Chest CT 10/14/24 09:39 IMPRESSION: 1. Diffuse bronchitis with small regions of tree-in-bud opacity consistent with likely developing pneumonia in the right upper and right lower lobes. Modified Barium Swallow 10/19/24 13:17 IMPRESSION: 1. Aspiration of thin liquids and mildly thick liquids. 2. Please refer to the speech therapy report for recommendations. Chest X-Ray 10/21/24 06:46 Impression: Mild patchy haziness right lung. Correlate for asymmetric pulmonary edema versus infection. Support tubes, as above. Labs Labs: Laboratory Results - last 24 hr 10/24/24 10/24/24 10/25/24 18:04 23:56 04:46 POC Capillary Glucose 86 106 H 111 H 10/25/24 12:15 POC Capillary Glucose 113 H
[2024-10-25 18:11] LABS: Glucose Point of Care 90 mg/dl (65-105)
[2024-10-25 19:41] VITALS: BP 105/65; PULSE 88; RESP 18; TEMP 36.6; O2SAT 96
[2024-10-25] MEDS: VALPROIC ACID 250 MG CAPSULE 750 MG PO (19:48)
[2024-10-25 20:00] VITALS: O2SAT 96
== END 2024-10-25 20:35 | DRG 202 ==
LOC: ANHED 10-14 02:24 → ANHIMU 10-14 03:27 → ANH2MED 10-16 16:06
PROVIDERS: Internal Medicine; Internal Medicine Gastroenterology; Admitting Provider Internal Medicine; Emergency Provider Physician Assistant; PCP Internal Medicine; Visit Provider Internal Medicine
PROC: 0DH63UZ Insertion of Feeding Device into Stomach, Percutaneous Approach (ICD-10-PCS; CPT 43246; principal; 2024-10-24 15:30)
DX: J20.5 Acute bronchitis due to respiratory syncytial virus (principal); J69.0 Pneumonitis due to inhalation of food and vomit; J96.01 Acute respiratory failure with hypoxia; R13.10 Dysphagia, unspecified; E16.2 Hypoglycemia, unspecified; F25.9 Schizoaffective disorder, unspecified; F79 Unspecified intellectual disabilities; F03.90 Unspecified dementia, unspecified severity, without behavioral disturbance, psychotic disturbance, mood disturbance, and anxiety; F41.9 Anxiety disorder, unspecified; G40.909 Epilepsy, unspecified, not intractable, without status epilepticus; I07.1 Rheumatic tricuspid insufficiency; Z20.822 Contact with and (suspected) exposure to COVID-19
CPT/HCPCS: 36415; 36569; 36600; 43246; 71045; 71250; 80048; 80053; 80069; 80164; 80202; 81001; 82805; 82948; 83605; 83690; 83735; 83880; 84100; 84145; 85018; 85025; 85027; 85610; 85730; 86140; 87040; 87637; 87641; 92610; 92611; 93005; 94640; 94669; 96361; 96365; 99285; A9270; C1751; J0461; J0692; J1650; J1940; J2003; J2543; J2704; J2997; J3370; J3475; J3480; J7030; J7040; J7070; J7120

== ENCOUNTER 2024-11-08 10:11 | Emergency (ER) | payer MEDICAID, SELFPAY ==
[2024-11-08] VITALS (15 sets, daily range): BP systolic 100–121; BP diastolic 56–73; PULSE 80–99; RESP 14–22; TEMP 36.2–37.2; O2SAT 93–96
--- NOTE | ~2024-11-08 | XR_ITS ---
EXAMINATION: XR chest 2V DATE: 11/08/2024 11:38 INDICATION: Aspiration. TECHNIQUE: Frontal and lateral views of the chest were obtained. COMPARISON: Chest single view 10/21/2024, chest CT 10/14/2024 FINDINGS: There is no pneumonia, pleural effusion, or pneumothorax. The heart size is normal. IMPRESSION: 1. No acute cardiopulmonary disease. Reviewed, dictated and finalized at location A. LLMENT MANAGEMENT COORDINATOR
--- NOTE | 2024-11-08 11:33 | ED.SOB ---
HPI - SOB/Dyspnea General Chief Complaint: Shortness of Breath/Dyspnea Stated Complaint: Resp Distress Time Seen by Provider: 11/08/24 10:39 History of Present Illness HPI Narrative: 59-year-old female presenting from her half-way facility for concerns of potential aspiration. [facility] is from [facility] and was recently admitted to this hospital for RSV bronchiolitis and aspiration pneumonia. She was treated with IV antibiotics including Unasyn and had a PEG tube placed as she has dysphagia. Patient is at her baseline mentation, does not wear oxygen but the [facility] staff noted that she had lots of saliva in oral cavity it was slightly hypoxic on room air 88% the but no respiratory distress. Patient presents to the ED via EMS. She is at her baseline mentation, has a history of developmental delay is very poor historian. Not using any oxygen presently, no tachypnea. Saturating 94% on room air. No need for suctioning at this time, no saliva or drooling. Related Data Home Medications ?Medication ?Instructions ?Recorded ?Confirmed ?Last Taken ?Type bupropion HCl 150 mg 24 hr tablet, 150 mg PO QAM 09/27/24 10/14/24 Unknown History extended release (Wellbutrin XL) lisinopril 10 mg tablet 10 mg PO DAILY 09/27/24 10/14/24 Unknown History medroxyprogesterone 150 mg/mL 150 mg IM ONCE 09/27/24 10/14/24 07/26/24 08:00 History intramuscular suspension (Depo-Provera) valproic acid 250 mg capsule 750 mg PO HS 09/27/24 10/14/24 Unknown History Allergies Allergy/AdvReac Type Severity Reaction Status Date / Time No Known Allergies Allergy Verified 09/27/24 22:08 Review of Systems Review of Systems: ROS unobtainable: Yes unobtainable due to medical condition PMFSH Past Medical History Medical History Intellectual disability Epilepsy Major depressive disorder Anxiety disorder Schizoaffective disorder Surgical History Surgical History Surgical history unknown Family History Family History Other Unknown family medical history Social History Social History Social History: Code status: Full code (per [facility] documentation) Smoking status: Unknown if ever smoked Spiritual care concerns: No Exam Narrative: Gen -not in any distress, chronically ill appearing, awake, no respiratory distress HEENT - dry mouth neck supple Chest -clear breath sounds throughout both lung cash, no tachypnea, no accessory muscle use or respiratory distress CV -regular rate and rhythm, some strong symmetric pulses Abd - Soft, +BS, no apparent tenderness, PEG in place without any overlying skin changes, no cellulitis, no redness or bleeding Ext - No pedal edema Neuro - does not follow commands. does not interact with examiner. At her baseline mentation Skin - Warm and dry psych- unable to assess Course Vital Signs Vital signs: Vital Signs Temperature 36.2 C L 11/08/24 10:11 Pulse Rate 99 11/08/24 10:11 Respiratory Rate 14 11/08/24 10:11 Blood Pressure 100/66 11/08/24 10:11 Pulse Oximetry 93 11/08/24 10:11 Oxygen Delivery Room Air 11/08/24 10:11 Temperature 36.2 C L 11/08/24 10:11 Pulse Rate 90 11/08/24 10:32 Respiratory Rate 21 H 11/08/24 10:32 Blood Pressure 101/67 11/08/24 10:32 Pulse Oximetry 93 11/08/24 11:11 Oxygen Delivery Autopap 11/08/24 11:11 MDM - SOB/Dyspnea MDM Narrative Medical decision making narrative: 59-year-old female presenting to the emergency department for evaluation of a potential aspiration event. Initially she had some significant drooling over at her half-way facility and was at 88% on room air. EMS noted that she was not in any respiratory distress and comfortably at her baseline. She does not interact and is a history of significant developmental delay. Well documented and appears to be at her baseline presently. Not in acute distress, no tachypnea. No fever or hypoxia noted she is saturating 94% on room air throughout her entire visit your in the emergency department. Normal blood pressure, no tachycardia. Chest x-rays obtained at this time to assess for any kind of aspiration or pneumonitis. COVID fluid RSV swabs also obtained. Patient was recently admitted for RSV bronchiolitis as well as an aspiration event requiring Unasyn but she complete her antibiotic course and was discharged 2 weeks prior. Has been doing well and facility since according to staff. Today's chest x-ray shows no pneumonia pleural effusions or pneumothorax. No acute cardiopulmonary process per Radiology interpretation of the two-view chest x-ray. COVID fluid RSV swabs are negative indicating resolution of her RSV. Patient is stable for discharge back to her facility at this time given lack of any complaints, no respiratory distress, normal vitals and unremarkable workup. Likely patient had a brief moment of drooling from her chronic dysphagia and even potentially small aspiration event but no evidence or sequela of that, no required oxygen supplementation or antibiotics. Medical Records Attestation: I reviewed the patient's medical records. Lab Data Attestation: I reviewed the patient's lab results. Labs: Lab Results 11/08/24 Range/Units 11:27 Influenza A (RT-PCR) Pending Influenza B (RT-PCR) Pending RSV (RT-PCR) Pending SARS-CoV-2 RNA (RT-PCR) Pending Imaging Data Attestation: I personally reviewed and interpreted this imaging study as follows: My impression: Impressions Chest X-Ray 11/08/24 11:46 IMPRESSION: 1. No acute cardiopulmonary disease. Discharge Plan Discharge Clinical Impression: Intellectual disability, Dysphagia, Status post insertion of percutaneous endoscopic gastrostomy (PEG) tube, Drooling Patient Disposition: [place] Long Term/Asst Living Condition: Stable Instructions: Antibiotic Form Additional Instructions: Follow-up with your primary care provider, return with any new or worsening concerns, continue using the PEG tube for feeding as she has chronic dysphagia and difficulty swallowing. Return with any new or concerning respiratory signs. Patient Language: Croatian Prescriptions: No Action valproic acid 250 mg Capsule 750 mg PO HS lisinopril 10 mg Tablet 10 mg PO DAILY medroxyprogesterone [Depo-Provera] 150 mg/mL Suspension 150 mg IM ONCE Rx Instructions: On the 10th day of the month of January, Apr, Jul, Dec bupropion HCl [Wellbutrin XL] 150 mg Tablet Extended Release 24 Hr 150 mg PO QAM amoxicillin-pot clavulanate 875-125 mg tablet 1 tablet feeding tube Q12H Qty: 6 0RF acetaminophen 325 mg Tablet 650 mg feeding tube Q4H PRN (Reason: pain or fever) Qty: 10 0RF alprazolam [Xanax] 0.5 mg Tablet 0.5 mg feeding tube TID Qty: 10 0RF famotidine 20 mg Tablet 20 mg feeding tube DAILY Qty: 10 0RF aripiprazole 20 mg Tablet 20 mg feeding tube DAILY Qty: 10 0RF ayrdbgwu-rkhu-QF-calcium-mins 9 mg iron-400 mcg Tablet 1 tablet feeding tube DAILY Qty: 10 0RF Follow-up/Referrals: Prakash,MD Nabil [Primary Care Provider] - Stand Alone Forms: [facility] Discharge Time of Disposition: 12:26
[2024-11-08 12:14] LABS: Influenza A QL RT-PCR Negative (Negative); Influenza B QL RT-PCR Negative (Negative); RSV RNA, RT-PCR Negative (Negative); SARS-CoV-2 RNA PCR Negative (Negative)
--- NOTE | 2024-11-08 16:20 | PC.NURSE ---
pt last set of vitals prior to ems arrival to go back to facility were hr95, resp. 19, O2 96% RA, and bp 111/76. when ems arrived and began moving pt to stretcher pt began having coughing fit and O2 dropped to 87% on RA. after coughing pt O2 went back to baseline of 94-96% RA. notified provider of findings.
--- NOTE | 2024-11-08 19:40 | PC.NURSE ---
attempted to call report and update facility on patient at 1930 with no answer. no voicemail set up to leave message
== END 2024-11-08 19:40 ==
PROVIDERS: Emergency Provider Student in an Organized Health Care Education/Training Program; PCP Internal Medicine
DX: R13.10 Dysphagia, unspecified (principal); F79 Unspecified intellectual disabilities; Z93.1 Gastrostomy status; Z20.822 Contact with and (suspected) exposure to COVID-19; G40.909 Epilepsy, unspecified, not intractable, without status epilepticus; F41.9 Anxiety disorder, unspecified; F32.9 Major depressive disorder, single episode, unspecified; F25.9 Schizoaffective disorder, unspecified; Z79.899 Other long term (current) drug therapy
CPT/HCPCS: 71046; 87637; 99284

== ENCOUNTER 2025-01-05 17:31 | Emergency (ER) | payer MEDICAID, SELFPAY ==
--- NOTE | ~2025-01-05 | XR_ITS ---
EXAMINATION: XR chest 1V portable DATE: 01/05/2025 17:59 INDICATION: Shortness of breath. TECHNIQUE: A single frontal view of the chest was obtained. COMPARISON: Chest 2 views 11/08/2024 FINDINGS: There is mild elevation of right hemidiaphragm. No pneumonia, pleural effusion, or pneumoth orax. The heart size is normal. There is an old healed left rib fracture. IMPRESSION: 1. No acute cardiopulmonary disease. Reviewed, dictated and finalized at location A. TING PULLER
[2025-01-05 17:35] VITALS: BP 137/84; PULSE 91; RESP 17; TEMP 37.1; O2SAT 96
--- NOTE | 2025-01-05 17:43 | ECG_ITS ---
Test Date: 2025-01-05 17:47:51 Measurements Intervals [place] Rate: 86 P: 49 TX: 170 QRS: -67 QRSD: 139 T: 47 QT: 365 QTc: 439 Interpretive Statements SINUS RHYTHM RIGHT BUNDLE BRANCH BLOCK LEFT ANTERIOR FASCICULAR BLOCK CANNOT R/O SEPTAL INFARCT, AGE INDETERMINATE BASELINE ARTIFACT- I, II, III, AVR, AVL, AVF, V1-V6 ABNORMAL ECG Compared to ECG 10/13/2024 23:31:56 HEART RATE HAS DECREASED Electronically Signed On 01-05-2025 19:55:52 BANK NOTE DESIGNER by Duane Lezama D.O.
--- NOTE | 2025-01-05 17:50 | ED.SOB ---
HPI - SOB/Dyspnea General Chief Complaint: Shortness of Breath/Dyspnea Stated Complaint: INCREASED WOB Time Seen by Provider: 01/05/25 17:45 History of Present Illness HPI Narrative: Patient is a 59-year-old female to ER with concerns for shortness of breath. According to EMS patient lives in a [facility] and they were concerned because she seemed to become short of breath after being placed in her wheelchair for dinner. They report patient has a history of pulmonary edema, which is why they sent her here for evaluation. EMS also reports the [facility] was concerned because patient seemed more agitated today, which is evidenced by her grinding her teeth. Patient is nonverbal at baseline. Per patient's chart her medical history includes schizoaffective disorder, intellectual disability, dementia. Related Data Home Medications ?Medication ?Instructions ?Recorded ?Confirmed ?Last Taken ?Type bupropion HCl 150 mg 24 hr tablet, 150 mg PO QAM 09/27/24 10/14/24 Unknown History extended release (Wellbutrin XL) lisinopril 10 mg tablet 10 mg PO DAILY 09/27/24 10/14/24 Unknown History medroxyprogesterone 150 mg/mL 150 mg IM ONCE 09/27/24 10/14/24 07/26/24 08:00 History intramuscular suspension (Depo-Provera) valproic acid 250 mg capsule 750 mg PO HS 09/27/24 10/14/24 Unknown History Allergies Allergy/AdvReac Type Severity Reaction Status Date / Time No Known Allergies Allergy Verified 09/27/24 22:08 Review of Systems Review of Systems: All systems reviewed & are unremarkable except as noted in HPI and below Constitutional: Constitutional: Reports as per HPI PMFSH Past Medical History Medical History Intellectual disability Epilepsy Major depressive disorder Anxiety disorder Schizoaffective disorder Surgical History Surgical History Surgical history unknown Family History Family History Other Unknown family medical history Social History Social History Social History: Code status: Full code (per [facility] documentation) Smoking status: Unknown if ever smoked Spiritual care concerns: No Exam Narrative: GENERAL: Well appearing, well-nourished, non-toxic, mild distress as indicated by teeth grinding. HEAD: Normocephalic, atraumatic. NECK: Supple. No adenopathy, no masses. RESPIRATORY: Airway patent, respirations nonlabored. Clear lung sounds. No rales, rhonchi, wheezing. CARDIOVASCULAR: Regular rate and rhythm without murmurs, rubs, or gallops. Peripheral pulses 2+ and equal bilaterally. ABDOMINAL: Soft, nontender, nondistended, no hepatosplenomegaly. Normoactive BS. MUSCULOSKELETAL: Moves all extremities. Strength/ROM intact without gross deformities. SKIN: Warm, dry, normal color. No rashes. NEURO: A&O X3. Speech clear. Cranial nerves II-XII grossly intact. Steady gait. No ataxic movements. PSYCHIATRIC: Appropriate mood and affect. Normal interaction. Course Vital Signs Vital signs: Vital Signs Temperature 37.1 C 01/05/25 17:35 Pulse Rate 91 01/05/25 17:35 Respiratory Rate 17 01/05/25 17:35 Blood Pressure 137/84 01/05/25 17:35 Pulse Oximetry 96 01/05/25 17:35 Oxygen Delivery Room Air 01/05/25 17:35 Temperature 37.1 C 01/05/25 17:35 Pulse Rate 100 01/05/25 18:41 Respiratory Rate 19 01/05/25 18:41 Blood Pressure 126/74 01/05/25 18:41 Pulse Oximetry 95 01/05/25 18:41 Oxygen Delivery Room Air 01/05/25 17:41 MDM - SOB/Dyspnea MDM Narrative Medical decision making narrative: Patient is a 59-year-old female to ER with concerns for shortness of breath. According to EMS patient lives in a [facility] and they were concerned because she seemed to become short of breath after being placed in her wheelchair for dinner. They report patient has a history of pulmonary edema, which is why they sent her here for evaluation. EMS also reports the [facility] was concerned because patient seemed more agitated today, which is evidenced by her grinding her teeth. Patient is nonverbal at baseline. Per patient's chart her medical history includes schizoaffective disorder, intellectual disability, dementia. Labs Ordered: CBC, CMP, troponin, D-dimer, INR, PTT, COVID/flu/RSV, UA Imaging Ordered: Chest x-ray Medications Ordered: None necessary Results: Patient's chest x-ray shows no acute abnormalities. Her blood work was unremarkable and consistent or improved from previous blood work results. Diagnosis: Intellectual disability Risks: HEART risk score: low risk HEART Pathway for Early Discharge in Acute [facility] All calculations should be rechecked by clinician prior to use RESULT SUMMARY: 2 points HEART Pathway Score Low risk 0.9-1.7% 30-day MACE Repeat troponin at 3 hours and if negative, discharge home with outpatient follow-up. INPUTS: History ?> 0 = Slightly suspicious EKG ?> 1 = Non-specific repolarization disturbance Age ?> 1 = 45-64 Risk factors ?> 0 = No known risk factors Initial troponin ?> 0 = <=Normal limit Consults: None necessary Patient Education/Shared MDM: Pt's examination, imaging, and bloodwork was unremarkable. She will be discharged home with no new prescriptions. Strict return precautions provided to long term facility. Vital signs stable at time of discharge. Differential Diagnosis Differential diagnosis: Likely acute exacerbation of chronic obstructive airways disease, congestive heart failure, community acquired pneumonia and asthma with exacerbation Lab Data Attestation: I reviewed the patient's lab results. 01/05/25 17:45 01/05/25 17:45 Labs: Lab Results 01/05/25 01/05/25 Range/Units 17:45 18:39 WBC 6.5 (4.5-10.0) K/mm3 RBC 3.96 L (4.2-5.4) M/mm3 Hgb 11.6 L (12.0-15.0) g/dL Hct 36.7 L (37.0-47.0) % MCV 92.7 (80-100) fl MCH 29.3 (26-34) pg MCHC 31.6 L (32-36) g/dl RDW 13.1 (11.5-14.5) % Plt Count 328 (150-375) k/mm3 MPV 10.9 H (7.4-10.4) fl Immature Gran % (Auto) 0.5 (0-0.5) % Neut % (Auto) 59.6 (45.5-73.1) % Lymph % (Auto) 27.3 (18.3-44.2) % Mora % (Auto) 9.2 H (2.6-8.5) % Eos % (Auto) 2.9 (0-4.4) % Baso % (Auto) 0.5 (0.2-1.2) % Lymph # (Auto) 1.77 (0.9-3.2) K/mm3 Mora # (Auto) 0.6 (0.1-0.6) K/mm3 Eos # (Auto) 0.2 (0-0.3) K/mm3 Baso # (Auto) 0.0 (0.0-0.1) K/mm3 Abs Immat Gran (auto) 0.03 (0.00-0.031) K/mm3 Absolute Neuts (auto) 3.9 (1.3-6.7) K/mm3 Absolute Nucleated RBC 0.000 (0.0-0.012) K/mm3 Nucleated RBC % 0.0 (0.0-0.2) % PT 13.4 (11.1-14.7) Seconds INR 1.0 APTT 28.3 (22.3-36.8) Seconds D-Dimer 0.29 (<0.48) ug/mL Sodium 140 (137-145) mmol/L Potassium 4.3 (3.4-5.0) mmol/L Chloride 106 (98-107) mmol/L Carbon Dioxide 27 (22-30) mmol/L Anion Gap 7 (4-12) mmol/L BUN 16 (7-17) mg/dL Creatinine 0.67 L (0.7-1.0) mg/dL Estim Creat Clear Calc 68 ml/min Estimated GFR > 60 (59 - ) Glucose 86 (65-110) mg/dL Calcium 9.3 (8.4-10.2) mg/dL Total Bilirubin 0.3 (0.2-1.3) mg/dL AST 20 (14-36) U/L ALT 11 (6-35) U/L Alkaline Phosphatase 116 (38-126) U/L Troponin I Pending Total Protein 7.0 (6.3-8.2) g/dL Albumin 3.6 (3.5-5.1) g/dL Urine Color Yellow (Yellow) Urine Appearance Clear (Clear) Urine pH 6.0 (5.0-9.0) Ur Specific Hodge 1.015 (1.001-1.035) Urine Protein Negative (Negative) mg/dL Urine Glucose (UA) Negative (Negative) mg/dL Urine Ketones Trace H (Negative) mg/dL Ur Blood (Man) Negative (Negative) Urine Nitrate Negative (Negative) Urine Bilirubin Negative (Negative) Urine Urobilinogen 0.2 (<2.0) mg/dL Leukocyte Esterase Rfl Negative (Negative) ANGIE/UL Imaging Data Attestation: I personally reviewed and interpreted this imaging study as follows: Radiologist's impression: Impressions Chest X-Ray 01/05/25 18:00 IMPRESSION: 1. No acute cardiopulmonary disease. Discharge Plan Discharge Clinical Impression: Intellectual disability Patient Disposition: [facility]/Asst Living Condition: Stable Instructions: Antibiotic Form Additional Instructions: Please return to the ER with an worsening symptoms. Follow-up with primary care provider in the next 2-3 days. No new medications were prescribed at this visit. Patient Language: Guyanese Prescriptions: No Action valproic acid 250 mg Capsule 750 mg PO HS lisinopril 10 mg Tablet 10 mg PO DAILY medroxyprogesterone [Depo-Provera] 150 mg/mL Suspension 150 mg IM ONCE Rx Instructions: On the 10th day of the month of January, Apr, Jul, Dec bupropion HCl [Wellbutrin XL] 150 mg Tablet Extended Release 24 Hr 150 mg PO QAM amoxicillin-pot clavulanate 875-125 mg tablet 1 tablet feeding tube Q12H Qty: 6 0RF acetaminophen 325 mg Tablet 650 mg feeding tube Q4H PRN (Reason: pain or fever) Qty: 10 0RF alprazolam [Xanax] 0.5 mg Tablet 0.5 mg feeding tube TID Qty: 10 0RF famotidine 20 mg Tablet 20 mg feeding tube DAILY Qty: 10 0RF aripiprazole 20 mg Tablet 20 mg feeding tube DAILY Qty: 10 0RF xzcdfyhs-uuqk-NK-calcium-mins 9 mg iron-400 mcg Tablet 1 tablet feeding tube DAILY Qty: 10 0RF Follow-up/Referrals: Prakash,MD Nabil [Primary Care Provider] - Stand Alone Forms: Assisted Discharge Time of Disposition: 19:18
[2025-01-05 17:52] LABS: Basophils Percent Auto 0.5 % (0.2-1.2); Eosinophils Absolute Auto 0.2 K/mm3 (0-0.3); Eosinophils Percent Auto 2.9 % (0-4.4); Hematocrit 36.7 % (37.0-47.0); Hemoglobin 11.6 g/dL (12.0-15.0); Immature Granulocyte Absolute 0.03 K/mm3 (0.00-0.031); Immature Granulocyte Percent A 0.5 % (0-0.5); Lymphocytes Absolute Auto 1.77 K/mm3 (0.9-3.2); Lymphocytes Percent Auto 27.3 % (18.3-44.2); Mean Corpuscular HGB Conc 31.6 g/dl (32-36); Mean Corpuscular Hemoglobin 29.3 pg (26-34); Mean Corpuscular Volume 92.7 fl (80-100); Mean Platelet Volume 10.9 fl (7.4-10.4); Monocytes Absolute Auto 0.6 K/mm3 (0.1-0.6); Monocytes Percent Auto 9.2 % (2.6-8.5); Neutrophils Absolute Auto 3.9 K/mm3 (1.3-6.7); Neutrophils Percent Auto 59.6 % (45.5-73.1); Platelet Count Result 328 k/mm3 (150-375); Red Blood Count 3.96 M/mm3 (4.2-5.4); Red Cell Distribution Width 13.1 % (11.5-14.5); White Blood Count 6.5 K/mm3 (4.5-10.0)
[2025-01-05 18:03] LABS: Alanine Aminotransferase 11 U/L (6-35); Albumin Level 3.6 g/dL (3.5-5.1); Alkaline Phosphatase 116 U/L (38-126); Anion Gap 7 mmol/L (4-12); Aspartate Amino Transferase 20 U/L (14-36); Bilirubin,Total 0.3 mg/dL (0.2-1.3); Blood Urea Nitrogen 16 mg/dL (7-17); Calcium 9.3 mg/dL (8.4-10.2); Carbon Dioxide 27 mmol/L (22-30); Chloride 106 mmol/L (98-107); Estimated CRCL calculation 68 ml/min; Estimated Glomerular Filt Rate > 60; Glucose 86 mg/dL (65-110); Potassium 4.3 mmol/L (3.4-5.0); Sodium 140 mmol/L (137-145)
[2025-01-05 18:07] LABS: Prothrombin Time 13.4 Seconds (11.1-14.7)
[2025-01-05 18:08] LABS: Partial Thromboplastin Time 28.3 Seconds (22.3-36.8)
[2025-01-05 18:12] LABS: D Dimer 0.29 ug/mL (<0.48)
[2025-01-05 18:41] VITALS: BP 126/74; PULSE 100; RESP 19; O2SAT 95
[2025-01-05 19:08] LABS: Add Urine Microscopic? NO; Appearance Urine Clear (Clear); Bilirubin Urine Negative (Negative); Blood Urine Negative (Negative); Color Urine Yellow (Yellow); Glucose Urine UA Negative (Negative); Ketones Urine Trace mg/dL (Negative); Leukocyte Esterase Ur Negative LEU/UL (Negative); Nitrate Urine Negative (Negative); Protein Urine Negative (Negative); Specific Grav Ur 1.015 (1.001-1.035); Urobilinogen Urine 0.2 mg/dL (<2.0)
[2025-01-05 19:13] LABS: Troponin I < 0.012 ng/mL (0.000-0.034)
--- NOTE | 2025-01-05 20:11 | PC.NURSE ---
This RN called [facility] [place] with no answer.
--- NOTE | 2025-01-05 20:17 | PC.NURSE ---
This RN spoke with pt RN at [facility]. This RN updated about pt POC and ETA back to facility
[2025-01-05 20:18] VITALS: BP 130/78; PULSE 93; RESP 18; O2SAT 96
[2025-01-05 20:20] VITALS: BP 130/78; PULSE 93; RESP 18; O2SAT 96
== END 2025-01-05 20:23 ==
PROVIDERS: Emergency Medicine; Emergency Provider Registered Nurse; PCP Internal Medicine
DX: F79 Unspecified intellectual disabilities (principal); F25.9 Schizoaffective disorder, unspecified; F03.90 Unspecified dementia, unspecified severity, without behavioral disturbance, psychotic disturbance, mood disturbance, and anxiety
CPT/HCPCS: 36415; 71045; 80053; 81003; 84484; 85025; 85380; 85610; 85730; 93005; 99284

== ENCOUNTER 2025-02-01 21:49 | Emergency (ER) | payer MEDICAID, SELFPAY ==
--- NOTE | ~2025-02-01 | XR_ITS ---
Exam: Abdomen 1V HISTORY: g tube reinsertion COMPARISON: None. TECHNIQUE: Supine images of the lower chest and upper abdomen FINDINGS: Contrast opacifies the stomach IMPRESSION: Percutaneous gastrostomy tube in good position and ready for immediate use. Reviewed, dictated and finalized at location A.
[2025-02-01 21:54] VITALS: BP 111/68; PULSE 65; RESP 15; TEMP 36.8; O2SAT 100
--- NOTE | 2025-02-01 22:02 | ED_ITS ---
HPI - General Adult General Chief complaint: Unspecified Stated complaint: DISLODGED G-TUBE Time Seen by Provider: 02/01/25 21:52 Source: EMS Mode of arrival: EMS Limitations: dementia History of Present Illness HPI narrative: This is a 60 year old female that presents to the ER for G tube dislodgement. Reportedly it has maybe been out for about an hour. Patient resting comfortably. Related Data Home Medications ?Medication ?Instructions ?Recorded ?Confirmed ?Last Taken ?Type bupropion HCl 150 mg 24 hr tablet, 150 mg PO QAM 09/27/24 10/14/24 Unknown History extended release (Wellbutrin XL) lisinopril 10 mg tablet 10 mg PO DAILY 09/27/24 10/14/24 Unknown History medroxyprogesterone 150 mg/mL 150 mg IM ONCE 09/27/24 10/14/24 07/26/24 08:00 History intramuscular suspension (Depo-Provera) valproic acid 250 mg capsule 750 mg PO HS 09/27/24 10/14/24 Unknown History Allergies Allergy/AdvReac Type Severity Reaction Status Date / Time No Known Allergies Allergy Verified 09/27/24 22:08 Review of Systems Review of Systems: ROS unobtainable: Yes unobtainable due to medical condition PMFSH Past Medical History Medical History Intellectual disability Epilepsy Major depressive disorder Anxiety disorder Schizoaffective disorder Surgical History Surgical History Surgical history unknown Family History Family History Other Unknown family medical history Social History Social History Social History: Code status: Full code (per skilled nursing documentation) Smoking status: Unknown if ever smoked Spiritual care concerns: No Exam Narrative: GENERAL: Disheveled, well-nourished, and in no acute distress. HEAD: Normocephalic, atraumatic. EYES: EOMI. CHEST: Clear to auscultation. No respiratory distress. No wheezes rales or rhonchi HEART: Regular rate and rhythm. No murmur heard. Normal peripheral pulses. ABDOMEN: Soft, nontender, nondistended, normal active bowel sounds. EXTREMITIES: Normal range of motion. No edema. SKIN: Warm, dry, no rash. NEURO: No focal deficits. Alert and oriented x3. PSYCH: Normal mood and affect Course Vital Signs Vital signs: Vital Signs Temperature 98.3 F 02/01/25 21:54 Pulse Rate 65 02/01/25 21:54 Respiratory Rate 15 02/01/25 21:54 Blood Pressure 111/68 02/01/25 21:54 Pulse Oximetry 100 02/01/25 21:54 Oxygen Delivery Room Air 02/01/25 21:54 Temperature 98.3 F 02/01/25 21:54 Pulse Rate 65 02/01/25 21:54 Respiratory Rate 15 02/01/25 21:54 Blood Pressure 111/68 02/01/25 21:54 Pulse Oximetry 100 02/01/25 21:54 Oxygen Delivery Room Air 02/01/25 21:54 Procedures Feeding Tube Replacement Feeding Tube #1: Feeding Tube Placement Date: 02/01/25 Feeding Tube Placement Time: 22:14 Type of Tube: gastrostomy Insertion Site Prior to Procedure: clean Tube Used for Reinsertion: other (Petcube 20 fr) Vincentian Tube Size (F): 20 Balloon size (mL): 20 Verification of Placement: gastrografin injection Tube Secured by: tape/dressing Patient Tolerated Procedure: well and no complications Medical Decision Making MDM Narrative Medical decision making narrative: Patient presents to the ER for g tube replacement. This was successfully rep laced without complication. Confirmed by x-ray. Patient discharged back to facility Vital Signs Vital Signs: Vital Signs Temperature 98.3 F 02/01/25 21:54 Pulse Rate 65 02/01/25 21:54 Respiratory Rate 15 02/01/25 21:54 Blood Pressure 111/68 02/01/25 21:54 Pulse Oximetry 100 02/01/25 21:54 Oxygen Delivery Room Air 02/01/25 21:54 Temperature 98.3 F 02/01/25 21:54 Pulse Rate 65 02/01/25 21:54 Respiratory Rate 15 02/01/25 21:54 Blood Pressure 111/68 02/01/25 21:54 Pulse Oximetry 100 02/01/25 21:54 Oxygen Delivery Room Air 02/01/25 21:54 Imaging Data Radiologist's impression: ITS Impressions Abdomen X-Ray 02/01/25 22:32 IMPRESSION: Percutaneous gastrostomy tube in good position and ready for immediate use. Critical Care Time Critical Care Time Critical Care Time: No Discharge Plan Discharge Clinical Impression: Gastrostomy malfunction Patient Disposition: NH Long Term/Asst Living Condition: Stable Additional Instructions: Return to the ER if you experience fever, abdominal pain with nausea and vomiting, you are unable to keep down liquids or solids, or any other symptoms that are concerning to you Follow up with primary care doctor Patient Language: Nigerian Prescriptions: No Action valproic acid 250 mg Capsule 750 mg PO HS lisinopril 10 mg Tablet 10 mg PO DAILY medroxyprogesterone [Depo-Provera] 150 mg/mL Suspension 150 mg IM ONCE Rx Instructions: On the day of the month of January, Apr, Jul, Oct bupropion HCl [Wellbutrin XL] 150 mg Tablet Extended Release 24 Hr 150 mg PO QAM amoxicillin-pot clavulanate 875-125 mg tablet 1 tablet feeding tube Q12H Qty: 6 0RF acetaminophen 325 mg Tablet 650 mg feeding tube Q4H PRN (Reason: pain or fever) Qty: 10 0RF alprazolam [Xanax] 0.5 mg Tablet 0.5 mg feeding tube TID Qty: 10 0RF famotidine 20 mg Tablet 20 mg feeding tube DAILY Qty: 10 0RF aripiprazole 20 mg Tablet 20 mg feeding tube DAILY Qty: 10 0RF hpgvsisp-tdlf-OT-calcium-mins 9 mg iron-400 mcg Tablet 1 tablet feeding tube DAILY Qty: 10 0RF Follow-up/Referrals: Prakash,MD Nabil [Primary Care Provider] - Stand Alone Forms: Care Home Discharge
--- OUTSIDE RECORDS SUMMARY | 2025-02-01 22:08 | XMS_ITS | Continuity of Care Document ---
Author Organization [address] [place] [address] Address [address] [facility] [address] [place] [address] Phone Care Team Providers Care Stockroom Supervisor Name Role Phone Luzmaria Carias Unavailable Unavailabl e Allergies, Adverse Reactions, Alerts Substance Reaction Status Criticality No Known Allergies Active No Inform ation Medications Medication Instructions Dosage Effective Dates (start - stop) Status Comments famotidine 20 mg tablet - Ac tive aripiprazole 30 mg tablet - Active lisinopril 10 mg tablet - tive valproic acid 250 mg capsule - Active medroxyprogesterone 150 mg/m L intramuscular syringe - Active clindamycin HCl 300 mg capsule - Active SPS (with sorbitol) 15 gram- 20 gram/60 mL oral suspension - Active ipratropium 0.5 mg-albuterol 3 mg (2.5 mg base)/3 mL nebulization soln - Active clonidine HCl 0.1 mg tablet - Active valproic acid (as sodium dasia t) 250 mg/5 mL oral solution - Active aripiprazole 20 mg tablet - Active quetiapine 100 mg tablet - A ctive divalproex 125 mg capsule,delayed release sprinkle - Active quetiapine 25 mg tablet - Ac tive quetiapine 50 mg tablet - Ac tive Nuedexta 20 mg-10 mg capsule - Active aripiprazole 15 mg tablet - Active duloxetine 60 mg capsule,delayed release - Active nystatin 100,000 unit/gram topical ointment - Active ranitidine 150 mg tablet - A ctive Problems Condition Type Effective Dates (start - stop) Clini alejandro Status Comments No Known Problems Procedures Procedure Date TYMPANOMETRY (IMPEDANCE TESTING) 2020 DEBRIDE NAIL 6 OR MORE NURSING FAC CARE SUBSEQ Prophylaxis - Adult Oral Hygiene Instructions Therapeutic Application To Topical Application Of DEBRIDE NAIL 6 OR MORE NURSING FAC CARE SUBSEQ DEBRIDE NAIL 6 OR MORE NURSING FAC CARE SUBSEQ Compsve Oral Eval- New/Est Pat 21 PPE Oral Hygiene Instructions Complete Series Of Radiographic Images A DEBRIDE NAIL 6 OR MORE NURSING FAC CARE SUBSEQ DEBRIDEMENT OF NAIL(S) BY ANY METHOD(S); six OR MORE Subsequent Nursing Facility Care 2018 DEBRIDEMENT OF NAIL(S) BY ANY METHOD(S); six OR MORE TYMPANOMETRY AND REFLEX THRESHOLD MEASUR EMENTS DEBRIDEMENT OF NAIL(S) BY ANY METHOD(S); six OR MORE Advance Directives Directive Yes / No Effective Date File Name No Information Encounters Encounter Description Practice Location Reason(s) For Visit Diagnoses Date Provider Providers Copied on Encounter [address] [place] [address], [address] [place] [address], [id number], tel:[phone] [facility] Unspecified hearing loss, bilateral 1 Buck Dutta. [address] [facility], [facility] [[email or web address] [address], [place], [id number], . tel:[phone] Referring Provider: Terrell Kc. NURSING FAC CARE [address], [id number], tel:[phone] [facility] Peripheral vascular disease, unspecifiedTi iza unguium 1 Shine . [address] [facility], [address], [place], [place], [id number], [place]. tel:[phone] Referring Provider: Terrell Kc. [address] [place] [address], [address] [place] [address], [place], [place], [id number], [place] tel:[phone] [facility] Encounter for dental exam and cleaning w/o abnormal findings 1 DAVID Celeste. Referring Provider: Terrell Kc. NURSING FAC CARE SUBSEQ [address] [place] [address], [address] [place] [address], [place], [place], [id number], [place] tel:[phone] [facility] Peripheral vascular disease, unspecifiedTi iza unguium 1 Rl Murphy. [address] [facility], [address], [place], [place], [id number], [place]. tel:[phone] [place] [address], [address] [place], [place] [address], [place], [place], [id number], [place] tel:[phone] [facility] No Information 1 Shine . [address] [facility], [address], [place], [place], [id number], [place]. tel:[phone] NURSING FAC CARE SUBSEQ [address] [place] [address], [address] [place], [place] [address], [place], [place], [id number], [place] tel:[phone] [facility] Peripheral vascular disease, unspecifiedTi iza unguium 1 Rl Murphy. [address] [facility], [address], [place], [place], [id number], [place]. tel:[phone] [place] [address], [address] [place] [address], [place], [id number], [place] tel:[phone] [facility] Encounter for dental exam and cleaning w/o abnormal findings Apr-0 - 1 Kiran Morales. , SUSAN. Referring Provider: Terrell Kc. NURSING FAC CARE SUBSEQ [address] [place] [address], [address] [place] [address], [place], [place], [id number], tel:[phone] [facility] Peripheral vascular disease, unspecifiedTi iza unguium Mar-0 5- 1 [facility]. [address] [place] [address], [address], [place], [place], [id number], [place]. tel:[phone] Referring Provider: Terrell Kc. Subsequent Nursing Facility Care [address] [place] [address], [address] [place] [address], [place], [id number], [place] tel:[phone] [facility] Tinea unguiumPeriph eral vascular disease, unspecified Dec- 9 [facility]. [address] [place] [address], [address], [place], [id number], [place]. tel:[phone] Referring Provider: Terrell Kc. [address] [place] [address], [address] [place] [address], [place], [id number], tel:[phone] [facility] Peripheral vascular disease, unspecifiedTi iza unguium Oct-0 2-201 9 [facility]. [address] [place] [address], [address], [place], [id number], [place]. tel:[phone] Referring Provider: Terrell Kc. [address] [place] [address], [address] [place] [address], [place], [id number], [place] tel:[phone] [facility] Unspecified hearing loss, bilateral Sep-1 9 Palatt Luzmaria. [address] [facility], [address], [place], [id number], [place]. tel:[phone] Referring Provider: Terrell Kc. [address] [place] [address], [place], [place], [id number], tel:[phone] [facility] Tinea unguiumPeriph eral vascular disease, unspecified 9 Rl Murphy. [address] [facility], [address], [place], [place], [id number], . tel:[phone] Referring Provider: Terrell Kc. [address] [place] [address], [address] [facility] [address], [place], [place], [id number], tel:[phone] [facility] No Information 9 Rl Murphy. [address] [facility], [address], [place], [place], [id number], . tel:[phone] Family History Family Member Type Diagnosis Age At Onset No Information Payers Payer name Insurance type Covered republican ID Authoriza tion(s) No Information Social History Type Description Quantity Date Captured Comments Alcohol Use Details Unknown Caffeine Use Details Unknown Tobacco Use Status No Information Smoking Status No Information Sex Female Chief Complaint And Reason For Visit No Information Reason For Referral Reason For Referral No Information Plan Of Treatment Date Type Action Status Patient Education Toenail Fungus: Care In structions completed Patient Education Learning About Dental Care and Your Health Problem completed Patient Education Learning About Dental Care and Your Health Problem completed Patient Education Dental X-Ray: About Thi s Test completed Patient Education Toenail Fungus: Care In structions completed Patient Education Toenail Fungus: Care In structions completed Patient Education Toenail Fungus: Care In structions completed Patient Education Hearing Tests: About Th uriel Tests completed Patient Education Toenail Fungus: Care In structions completed History Of Present Illness Encounter Date Complaint History Of Prese nt Illness No Information Functional Status Date Functional Assessmen t No Information Instructions Date Instruction Additional Infor mation Return as needed Related to Unsp ecified hearing loss, bilateral 1-5 digital nails bi laterally were mycotic and dystrophic nails were debrided both in length and thickness as needed. The nails were debrided using a Dremel and nail nipper. I will follow up in 2-3 months for continued at risk foot care. Related to Tinea unguium 1-5 digital nails bi laterally were mycotic and dystrophic nails were debrided both in length and thickness as needed. The nails were debrided using a Dremel and nail nipper. I will follow up in 2-3 months for continued at risk foot care. Related to Tinea unguium 1-5 digital nails bi laterally were mycotic and dystrophic nails were debrided both in length and thickness as needed. The nails were debrided using a Dremel and nail nipper. I will follow up in 2-3 months for continued at risk foot care. Related to Tinea unguium 1-5 digital nails bi laterally were mycotic and dystrophic nails were debrided both in length and thickness as needed. The nails were debrided using a Dremel and nail nipper. I will follow up in 2-3 months for continued at risk foot care. Related to Tinea unguium All mycotic and dyst rophic nails were debrided both in length and thickness as needed. The nails were debrided using a Dremel and nail nipper. I will follow up in 2-3 months for continued at risk foot care. Related to Tinea unguium All mycotic and dyst rophic nails were debrided both in length and thickness as needed. The nails were debrided using a Dremel and nail nipper. I will follow up in 2-3 months for continued at risk foot care. Related to Tinea unguium Return to attempt further testin g Related to Unspecified hearing loss, bilateral All of the mycotic n ails described were debrided in both length and thickness as needed. The nails were debrided using a dremel and nail nipper. Related to Tinea unguium Assessments Type Assessment Date assessment Unspecified hearing loss, bilate ral Patient Care Teams Name Effective Dates (start - stop) Status Members No Information
[2025-02-01 23:19] VITALS: BP 136/83; PULSE 78; RESP 18; O2SAT 92
--- NOTE | 2025-02-01 23:58 | PC.NURSE ---
This RN spoke with pt RN at facility and gave report. Facility updated of pt POC and ETA
[2025-02-02 00:50] VITALS: BP 131/85; PULSE 74; RESP 17; O2SAT 96
== END 2025-02-02 00:52 ==
PROVIDERS: Emergency Provider Physician Assistant; PCP Internal Medicine
DX: Z43.1 Encounter for attention to gastrostomy (principal); G40.909 Epilepsy, unspecified, not intractable, without status epilepticus; F79 Unspecified intellectual disabilities; F41.9 Anxiety disorder, unspecified; F32.9 Major depressive disorder, single episode, unspecified; F25.9 Schizoaffective disorder, unspecified
CPT/HCPCS: 43762; 99283

== ENCOUNTER 2025-02-26 21:31 | Observation (INO) | payer MEDICAID, SELFPAY ==
[2025-02-26] VITALS (11 sets, daily range): BP systolic 73–105; BP diastolic 43–84; PULSE 87–123; RESP 14–24; TEMP 38; O2SAT 92–97
--- NOTE | ~2025-02-26 | XR_ITS ---
Portable chest x-ray Comparison: 01/05/2025 Clinical History: Shortness of breath Findings: Lungs are clear, without focal consolidation or pleural effusion. Cardiomediastinal silho uette is stable. Bones and soft tissues are unremarkable. Impression: Clear lungs. Reviewed, dictated and finalized at location . Impression: Clear lungs.
--- NOTE | ~2025-02-26 | US_ITS ---
EXAMINATION: US venous doppler E DATE: 02/28/2025 14:10 INDICATION: Evaluate for deep venous thrombosis. TECHNIQUE: Shetty scale images with and without compression and Doppler images of the left upper extrem ity veins were obtained. COMPARISON: None. FINDINGS: The left internal jugular vein, subclavian vein, axillary vein, brachial veins, basilic vein, cephali c vein, radial vein, and ulnar vein are patent. IMPRESSION: 1. Patent left upper extremity veins. No evidence of deep venous thrombosis. Reviewed, dictated and finalized at location B.
--- NOTE | ~2025-02-26 | CT_ITS ---
Clinical Indication: Shortness of breath, abdominal pain CT Scan of the Chest, Abdomen, and Pelvis with Contrast: Technique: Contiguous sections were acquired throughout the chest, abdomen, and pelvis after intraven ous administration of 100 cc of Omnipaque 350. Dose reduction technique was used on this scan by uti lizing automated exposure control and iterative reconstruction technique. The dose-length product (DL P) was 513.25 mGy-cm. Comparison: 10/14/2024 Findings: There is no evidence of any significant mediastinal, hilar or axillary lymphadenopathy. No large cent ral pulmonary embolus. Evaluation for smaller peripheral pulmonary emboli is suboptimal due to mild m otion artifact. No aortic aneurysm or dissection. Mildly enlarged AP window lymph nodes are present.. There is no evidence of pleural or pericardial effusion. The lungs are clear, aside from minimal dependent atelectatic change. The liver, spleen, pancreas, gallbladder, adrenals and kidneys are within normal limits. No evidence of aortic aneurysm. No lymphadenopathy. No bowel obstruction or bowel wall thickening.. Percutaneous gastrostomy tube is present with balloon in the duodenum. Prominent stool at the rectum is compatible with fecal impaction and associated con stipation. Urinary bladder is unremarkable. No pelvic mass evident. No ascites. Impression: Fecal impaction/constipation. Percutaneous gastrostomy tube balloon is in duodenum. Mildly enlarged AP window lymph nodes, nonspecific. No other significant findings identified. Reviewed, dictated and finalized at [facility]. Impression: Fecal impaction/constipation. Percutaneous gastrostomy tube balloon is in duodenum. Mildly enlarged AP window lymph nodes, nonspecific. No other significant findings identified.
--- NOTE | 2025-02-26 21:44 | ECG_ITS ---
Test Date: 2025-02-26 21:50:17 Measurements Intervals [place] Rate: 119 P: 50 [place]: 204 QRS: 253 QRSD: 126 T: 12 QT: 314 QTc: 442 Interpretive Statements SINUS TACHYCARDIA WITH FREQUENT SUPRAVENTRICULAR PREMATURE COMPLEXES RIGHT AXIS DEVIATION RIGHT BUNDLE BRANCH BLOCK CANNOT R/O SEPTAL INFARCT, AGE INDETERMINATE BASELINE ARTIFACT- I, II, III, AVR, AVL,A VF, V1-V3 ABNORMAL ECG Compared to ECG 01/05/2025 17:47:51 HEART RATE HAS INCREASED Electronically Signed On 02-27-2025 06:22:29 CDT by Duane Lezama D.O.
[2025-02-26 21:57] LABS: Basophils Percent Auto 0.2 % (0.2-1.2); Eosinophils Absolute Auto 0.1 K/mm3 (0-0.3); Eosinophils Percent Auto 0.9 % (0-4.4); Hematocrit 39.2 % (37.0-47.0); Hemoglobin 12.4 g/dL (12.0-15.0); Immature Granulocyte Absolute 0.05 K/mm3 (0.00-0.031); Immature Granulocyte Percent A 0.4 % (0-0.5); Lymphocytes Absolute Auto 0.86 K/mm3 (0.9-3.2); Lymphocytes Percent Auto 6.5 % (18.3-44.2); Mean Corpuscular HGB Conc 31.6 g/dl (32-36); Mean Corpuscular Hemoglobin 28.8 pg (26-34); Mean Corpuscular Volume 91.2 fl (80-100); Mean Platelet Volume 12.3 fl (7.4-10.4); Monocytes Absolute Auto 0.5 K/mm3 (0.1-0.6); Neutrophils Absolute Auto 11.6 K/mm3 (1.3-6.7); Platelet Count Result 241 k/mm3 (150-375); Red Cell Distribution Width 13.1 % (11.5-14.5); White Blood Count 13.2 K/mm3 (4.5-10.0)
[2025-02-26 22:09] LABS: Alanine Aminotransferase 12 U/L (6-35); Albumin Level 3.7 g/dL (3.5-5.1); Alkaline Phosphatase 104 U/L (38-126); Anion Gap 8 mmol/L (4-12); Aspartate Amino Transferase 20 U/L (14-36); Bilirubin,Total 0.3 mg/dL (0.2-1.3); Blood Urea Nitrogen 13 mg/dL (7-17); Carbon Dioxide 27 mmol/L (22-30); Chloride 101 mmol/L (98-107); Estimated CRCL calculation 47 ml/min; Estimated Glomerular Filt Rate > 60; Glucose 197 mg/dL (65-110); Potassium 4.2 mmol/L (3.4-5.0); Sodium 136 mmol/L (137-145)
[2025-02-26 22:09] LABS: Add Urine Microscopic? NO; Appearance Urine Clear (Clear); Bilirubin Urine Negative (Negative); Blood Urine Negative (Negative); Color Urine Yellow (Yellow); Glucose Urine UA Negative (Negative); Ketones Urine Trace mg/dL (Negative); Leukocyte Esterase Ur Negative LEU/UL (Negative); Nitrate Urine Negative (Negative); Protein Urine Negative (Negative); Specific Grav Ur 1.016 (1.001-1.035)
[2025-02-26 22:35] LABS: Influenza A QL RT-PCR Negative (Negative); Influenza B QL RT-PCR Negative (Negative); RSV RNA, RT-PCR Negative (Negative); SARS-CoV-2 RNA PCR Negative (Negative)
[2025-02-27] VITALS (13 sets, daily range): BP systolic 90–112; BP diastolic 44–60; PULSE 82–105; RESP 16–24; TEMP 36.2–37.6; O2SAT 86–99; BMI 24.0
[2025-02-27 00:04] LABS: Magnesium 1.8 mg/dL (1.6-2.3)
[2025-02-27] MEDS: SODIUM CHLORIDE 0.9% IV 1,000 ML 999 ML IV CONT (00:09)
[2025-02-27] MEDS: ACETAMINOPHEN 650 MG SUPPOSITORY RECTAL (00:09)
[2025-02-27 00:11] LABS: INR 0.9
[2025-02-27 00:12] LABS: Partial Thromboplastin Time 32.6 Seconds (22.3-36.8)
[2025-02-27 00:21] LABS: Procalcitonin 0.1 ng/mL
[2025-02-27 00:56] LABS: Lactic Acid Reflex 1.8 mmol/L (0.7-2.0)
--- NOTE | 2025-02-27 01:30 | ED_ITS ---
HPI - General Adult General Chief complaint: Fever Stated complaint: SEPSIS, FEVER, HYPOXIC, TACHICARDIC Time Seen by Provider: 02/26/25 23:29 History of Present Illness HPI narrative: Patient is a 60-year-old female who presents emergency department with chief complaint of possible sepsis. The patient is resident of local nursing facility has history of cerebral palsy dementia schizophrenia has a G-tube and is baseline alert oriented times 0 of patient is reported to be a full code from the outlying facility. The patient had a temperature of a 102.8? and was 88% on 2 L nasal cannula Related Data Home Medications ?Medication ?Instructions ?Recorded ?Confirmed ?Last Taken ?Type bupropion HCl 150 mg 24 hr tablet, 150 mg PO QAM 09/27/24 10/14/24 Unknown History extended release (Wellbutrin XL) lisinopril 10 mg tablet 10 mg PO DAILY 09/27/24 10/14/24 Unknown History medroxyprogesterone 150 mg/mL 150 mg IM ONCE 09/27/24 10/14/24 07/26/24 08:00 History intramuscular suspension (Depo-Provera) valproic acid 250 mg capsule 750 mg PO HS 09/27/24 10/14/24 Unknown History Allergies Allergy/AdvReac Type Severity Reaction Status Date / Time No Known Allergies Allergy Verified 09/27/24 22:08 Review of Systems 2 Review of Systems: A 10 system review of systems was completed on the patient and is negative except for what is stated in the HPI. Nursing and ancillary documentation was reviewed. PMFSH Past Medical History Medical History Intellectual disability Epilepsy Major depressive disorder Anxiety disorder Schizoaffective disorder Surgical History Surgical History Surgical history unknown Family History Family History Other Unknown family medical history Social History Social History Social History: Code status: Full code (per retirement documentation) Smoking status: Unknown if ever smoked Spiritual care concerns: No Exam 2 Narrative: GENERAL: Ill-appearing, well-nourished, and in no acute distress. HEAD: Normocephalic, atraumatic. EYES: PERRLA and EOMI. ENT: Nares clear, no rhinorrhea or epistaxis. Mucous membranes moist. NECK: Supple. CHEST: Clear to auscultation. No respiratory distress. HEART: Regular rate and rhythm. No murmur heard. Normal peripheral pulses. ABDOMEN: Soft, nontender, nondistended, normal active bowel sounds. G-tube in place EXTREMITIES: Normal range of motion. No edema. SKIN: Warm, dry, no rash. NEURO: No focal deficits. Alert and oriented x0. PSYCH: Normal mood and affect. Course Vital Signs Vital signs: Vital Signs Temperature 38.0 C H 02/26/25 21: Pulse Rate 123 H 02/26/25 21: Respiratory Rate 24 H 02/26/25 21: Blood Pressure 100/55 L 02/26/25 21: Pulse Oximetry 95 02/26/25 21:29 Oxygen Delivery Nasal Cannula 02/26/25 21: Oxygen Flow Rate 2 02/26/25 21:29 Temperature 38.0 C H 02/26/25 21: Pulse Rate 105 H 02/27/25 00:16 Respiratory Rate 20 02/27/25 00:16 Blood Pressure 95/60 L 02/27/25 00:16 Pulse Oximetry 96 02/27/25 00:16 Oxygen Delivery Nasal Cannula 02/26/25 22:00 Oxygen Flow Rate 2 02/26/25 22:19 Medical Decision Making [facility] Narrative Medical decision making narrative: Differential diagnosis includes pneumonia, UTI, sepsis, CT scan showed atelectasis and infiltrate in the right lung base. CT scan of the abdomen pelvis showed a large amount of stool and possible ileus Urinalysis showed no evidence UTI white count 13.2 lactate was 1.8 procalcitonin 0.1 blood cultures were obtained COVID flu and RSV were negative Patient was febrile upon initial arrival has been given Tylenol Patient was also given fluid resuscitation Patient was started on cefepime and vanc Vital Signs Vital Signs: Vital Signs Temperature 38.0 C H 02/26/25 21:29 Pulse Rate 123 H 02/26/25 21:29 Respiratory Rate 24 H 02/26/25 21:29 Blood Pressure 100/55 L 02/26/25 21:29 Pulse Oximetry 95 02/26/25 21:29 Oxygen Delivery Nasal Cannula 02/26/25 21:29 Oxygen Flow Rate 2 02/26/25 21:29 Temperature 38.0 C H 02/26/25 21:29 Pulse Rate 105 H 02/27/25 00:16 Respiratory Rate 20 02/27/25 00:16 Blood Pressure 95/60 L 02/27/25 00:16 Pulse Oximetry 96 02/27/25 00:16 Oxygen Delivery Nasal Cannula 02/26/25 22:00 Oxygen Flow Rate 2 02/26/25 22:19 Lab Data 02/26/25 21:48 02/26/25 21:48 Labs: Lab Results 02/26/25 02/26/25 02/27/25 Range/Units 21:48 22:01 00:10 WBC 13.2 H (4.5-10.0) K/mm3 RBC 4.30 (4.2-5.4) M/mm3 Hgb 12.4 (12.0-15.0) g/dL Hct 39.2 (37.0-47.0) % MCV 91.2 (80-100) fl MCH 28.8 (26-34) pg MCHC 31.6 L (32-36) g/dl RDW 13.1 (11.5-14.5) % Plt Count 241 (150-375) k/mm3 MPV 12.3 H (7.4-10.4) fl Immature Gran % (Auto) 0.4 (0-0.5) % Neut % (Auto) 88.0 H (45.5-73.1) % Lymph % (Auto) 6.5 L (18.3-44.2) % [place] % (Auto) 4.0 (2.6-8.5) % Eos % (Auto) 0.9 (0-4.4) % Baso % (Auto) 0.2 (0.2-1.2) % Lymph # (Auto) 0.86 L (0.9-3.2) K/mm3 [place] # (Auto) 0.5 (0.1-0.6) K/mm3 Eos # (Auto) 0.1 (0-0.3) K/mm3 Baso # (Auto) 0.0 (0.0-0.1) K/mm3 Abs Immat Gran (auto) 0.05 H (0.00-0.031) K/mm3 Absolute Neuts (auto) 11.6 H (1.3-6.7) K/mm3 Absolute Nucleated RBC 0.000 (0.0-0.012) K/mm3 Nucleated RBC % 0.0 (0.0-0.2) % PT 13.0 (11.1-14.7) Seconds INR 0.9 APTT 32.6 (22.3-36.8) Seconds Sodium 136 L (137-145) mmol/L Potassium 4.2 (3.4-5.0) mmol/L Chloride 101 (98-107) mmol/L Carbon Dioxide 27 (22-30) mmol/L Anion Gap 8 (4-12) mmol/L BUN 13 (7-17) mg/dL Creatinine 0.88 (0.7-1.0) mg/dL Estim Creat Clear Calc 47 ml/min Estimated GFR > 60 (59 - ) Glucose 197 H (65-110) mg/dL Lactic Acid 1.8 (0.7-2.0) mmol/L Calcium 9.0 (8.4-10.2) mg/dL Magnesium 1.8 (1.6-2.3) mg/dL Total Bilirubin 0.3 (0.2-1.3) mg/dL AST 20 (14-36) U/L ALT 12 (6-35) U/L Alkaline Phosphatase 104 (38-126) U/L Total Protein 7.0 (6.3-8.2) g/dL Albumin 3.7 (3.5-5.1) g/dL Procalcitonin 0.1 ng/mL Urine Color Yellow (Yellow) Urine Appearance Clear (Clear) Urine pH 6.0 (5.0-9.0) Ur Specific [place] 1.016 (1.001-1.035) Urine Protein Negative (Negative) mg/dL Urine Glucose (UA) Negative (Negative) mg/dL Urine Ketones Trace H (Negative) mg/dL Ur Blood (Man) Negative (Negative) Urine Nitrate Negative (Negative) Urine Bilirubin Negative (Negative) Urine Urobilinogen 1.0 (<2.0) mg/dL Leukocyte Esterase Rfl Negative (Negative) ANGIE/UL Influenza A (RT-PCR) Negative (Negative) Influenza B (RT-PCR) Negative (Negative) RSV (RT-PCR) Negative (Negative) SARS-CoV-2 RNA (RT-PCR) Negative (Negative) Critical Care Time Critical Care Time Critical Care Time: Yes Total Critical Care Time: 35 Discharge Plan Discharge Clinical Impression: Pneumonia Patient Disposition: Still a Patient Condition: Stable Patient Language: Tajik Prescriptions: No Action valproic acid 250 mg Capsule 750 mg PO HS lisinopril 10 mg Tablet 10 mg PO DAILY medroxyprogesterone [Depo-Provera] 150 mg/mL Suspension 150 mg IM ONCE Rx Instructions: On the day of the month of January, Apr, Jul, Dec bupropion HCl [Wellbutrin XL] 150 mg Tablet Extended Release 24 Hr 150 mg PO QAM amoxicillin-pot clavulanate 875-125 mg tablet 1 tablet feeding tube Q12H Qty: 6 0RF acetaminophen 325 mg Tablet 650 mg feeding tube Q4H PRN (Reason: pain or fever) Qty: 10 0RF alprazolam [Xanax] 0.5 mg Tablet 0.5 mg feeding tube TID Qty: 10 0RF famotidine 20 mg Tablet 20 mg feeding tube DAILY Qty: 10 0RF aripiprazole 20 mg Tablet 20 mg feeding tube DAILY Qty: 10 0RF emohjfpn-dymc-DH-calcium-mins 9 mg iron-400 mcg Tablet 1 tablet feeding tube DAILY Qty: 10 0RF Follow-up/Referrals: Prakash,MD Nabil [Primary Care Provider] - Time of Disposition: 01:38
[2025-02-27] MEDS: SODIUM CHLORIDE 0.9% IV 1,000 ML 125 ML IV CONT ×3 (02:06→19:07)
[2025-02-27] MEDS: CEFEPIME 2 GM/NS 50 ML 2 GM/50 ML BAG IVPB ×2 (02:06→11:35)
--- NOTE | 2025-02-27 02:11 | PC.NURSE ---
patient diaper dry at this time.
[2025-02-27 02:13] LABS: Troponin I < 0.012 ng/mL (0.000-0.034)
[2025-02-27] MEDS: VANCOMYCIN 1,500 MG/NS 500 ML 1,500 MG/500 ML BAG 250 MG IVPB (02:46)
--- NOTE | 2025-02-27 02:51 | ADMGEN ---
This patient, Amanda Cabrera, was admitted to Medical Room 349-01. Patient/family oriented to hospital policies and general routines including ID bracelet, bed and alarms, visiting hours, pain management, procedures, bathroom and other care routines, personal items, smoking policy, room service/diet, and visiting hours. Information on how to activate the Rapid Response Team has been discussed. Patient/Family are encouraged to report perceived risks to care and to ask questions if they do not understand what they are told or what they should do.
[2025-02-27 06:17] LABS: MRSA (PCR) NOT DETECTED (NOT DETECTE)
--- NOTE | 2025-02-27 06:36 | P.HP_ITS ---
H&P: HPI History of Present Illness Date/Time: 02/27/25 06:36 Chief Complaint: 1. Fever 2. Lethargy Narrative: Amanda Cabrera this is 60-year-old female with a medical history significant for intellectual disability, schizoaffective disorder, dysphagia A resident of [facility], she was brought in after concerned staff member stenosis she developed fevers; with no known modifying factors, her symptom was associated with lethargy and a deviation from a previously known cognitive baseline There were no associated symptoms of fevers, chills, malaise, flank pain, diarrhea, emesis He does not smoke/chew tobacco, drink alcohol or consume recreational/illicit drugs Work-up findings: CT chest, abdomen, Pelvis: Fecal impaction/constipation. Percutaneous gastrostomy tube balloon is in duodenum. Mildly enlarged AP window lymph nodes, nonspecific. No other significant findings identified. CXR: Unremarkable WBC 13.2; HGB 12.4; MCV 91; PO2 241 INR 0.9; PT 13; 32.6 Na 136; K 4.2; Cl 101; CO2 27; HGB 8; BUN 13; CR 0.88; GFR 47 Unremarkable liver chemistries Troponin 0.012; procalcitonin 0.1 UA: Unremarkable Influenza a/B, RSV, COVID-19: Negative Amanda Cabrera a day admitted, evaluated, and managed for sepsis due to pneumonia Review of Systems Review of Systems: All systems reviewed & are unremarkable except as noted in HPI and below ROS unobtainable: Yes unobtainable due to medical condition and unobtainable due to mental status PMFSH Past Medical History Medical History Intellectual disability Epilepsy Major depressive disorder Anxiety disorder Schizoaffective disorder Surgical History Surgical History Surgical history unknown Family History Family History Other Unknown family medical history Social History Social History Social History: Code status: Full code (per [facility] documentation) Smoking status: Unknown if ever smoked Alcohol intake: unknown Substance use: unknown Spiritual care concerns: No Meds Home Medications and Allergies Home Medications ?Medication ?Instructions ?Recorded ?Confirmed ?Type bupropion HCl 150 mg 24 hr tablet, 150 mg PO QAM 09/27/24 02/27/25 History extended release (Wellbutrin XL) lisinopril 10 mg tablet 10 mg PO DAILY 09/27/24 02/27/25 History valproic acid 250 mg capsule 750 mg PO HS 09/27/24 02/27/25 History acetaminophen 325 mg tablet 650 mg (2 x 325 mg) feeding tube 10/25/24 02/27/25 Rx Q4H PRN pain or fever #10 tabs alprazolam 0.5 mg tablet (Xanax) 0.5 mg feeding tube TID #10 tabs 10/25/24 02/27/25 Rx aripiprazole 20 mg tablet 20 mg feeding tube DAILY #10 tabs 10/25/24 02/27/25 Rx Allergies Allergy/AdvReac Type Severity Reaction Status Date / Time No Known Allergies Allergy Verified 09/27/24 22:08 Vital Signs Vital Signs - 24 hr 02/26/25 21:29 02/26/25 22:00 02/26/25 22:11 Temperature 100.4 F H Pulse Rate 123 H 113 H Respiratory Rate 24 H 21 H Blood Pressure 100/55 L 101/47 L Pulse Oximetry 95 95 94 Oxygen Delivery Nasal Cannula Nasal Cannula Oxygen Flow Rate 2 2 02/26/25 22:16 02/26/25 22:19 02/26/25 22:19 Temperature Pulse Rate 107 H 107 H Respiratory Rate 22 H 18 20 Blood Pressure 84/56 L 94/62 L Pulse Oximetry 94 95 95 Oxygen Delivery Oxygen Flow Rate 2 02/26/25 22:19 02/26/25 22:31 02/26/25 22:46 Temperature Pulse Rate 110 H 102 H 97 Respiratory Rate 21 H 18 14 Blood Pressure 94/62 L 90/57 L 95/66 L Pulse Oximetry 95 96 97 Oxygen Delivery Oxygen Flow Rate 02/26/25 23:31 02/26/25 23:38 02/26/25 23:46 Temperature Pulse Rate 87 96 100 Respiratory Rate 20 15 17 Blood Pressure 73/43 L 96/58 L 101/84 Pulse Oximetry 94 94 95 Oxygen Delivery Oxygen Flow Rate 02/26/25 23:53 02/27/25 00:16 02/27/25 01:30 Temperature Pulse Rate 100 105 H Respiratory Rate 16 20 Blood Pressure 105/66 95/60 L Pulse Oximetry 92 96 86 L Oxygen Delivery Room Air Oxygen Flow Rate 02/27/25 02:04 02/27/25 02:10 02/27/25 02:14 Temperature 98.8 F 98.8 F Pulse Rate 99 Respiratory Rate 24 H Blood Pressure 90/50 L Pulse Oximetry 92 94 Oxygen Delivery Nasal Cannula Oxygen Flow Rate 2 02/27/25 03:46 02/27/25 04:00 Temperature Pulse Rate 87 Respiratory Rate Blood Pressure Pulse Oximetry Oxygen Delivery Room Air Oxygen Flow Rate H&P: Results Labs Labs: Short CBC 02/26/25 Range/Units 21:48 WBC 13.2 H (4.5-10.0) K/mm3 Hgb 12.4 (12.0-15.0) g/dL Hct 39.2 (37.0-47.0) % Plt Count 241 (150-375) k/mm3 BMP 02/26/25 21:48 Sodium 136 L Potassium 4.2 Chloride 101 Carbon Dioxide 27 BUN 13 Creatinine 0.88 Glucose 197 H Calcium 9.0 Cardiac Enzymes 02/26/25 Range/Units 23:48 Troponin I < 0.012 (0.000-0.034) ng/mL Liver Function 02/26/25 Range/Units 21:48 Total Bilirubin 0.3 (0.2-1.3) mg/dL AST 20 (14-36) U/L ALT 12 (6-35) U/L Alkaline Phosphatase 104 (38-126) U/L Albumin 3.7 (3.5-5.1) g/dL Urine 02/26/25 Range/Units 22:01 Urine Color Yellow (Yellow) Urine Appearance Clear (Clear) Urine pH 6.0 (5.0-9.0) Ur Specific [place] 1.016 (1.001-1.035) Urine Protein Negative (Negative) mg/dL Urine Glucose (UA) Negative (Negative) mg/dL Assessment and Plan Assessment and plan (1) Schizoaffective disorder: Code(s): F25.9 - Schizoaffective disorder, unspecified Status: Acute (2) Dysphagia: Code(s): R13.10 - Dysphagia, unspecified Status: Acute (3) Sepsis: Code(s): A41.9 - Sepsis, unspecified organism Status: Acute Plan Acute and principal conditions 1. Fever 2. Probable Aspiration; rhonchi at bedside 3. Constipation 4. Probable sepsis Rx: * IVFs * Cefepime * Supplemental oxygen * Blood culture * Suppositories PRN Chronic and stable conditions * Schizoaffective disorder * Dysphagia. NPO Miscellaneous care * Code status. Full * VTE prophylaxis. SCDs; MARLON * Nutrition. PEG tube Quality VTE Prophylaxis VTE prophylaxis: mechanical ordered and pharmacologic ordered Hospitalist MIPS Advance Care Plan I have confirmed that the patient's Advanced Care Plan is present, code status is documented, or surrogate decision maker is listed in patient medical record.: Yes Medication Reconciliation I have utilized all available resources to obtain, update and review the patients current medications (includes all prescriptions, OTC, herbals, cannabis, and nutritional supplements).: Yes The patient is not eligible for med reconciliation; the patient is in a emergent medical situation where delaying treatment would jeopardize the patients health.: Yes
--- NOTE | 2025-02-27 07:52 | P.PNIM_ITS ---
Progress Note: A&P Assessment and Plan (1) Aspiration pneumonia: Code(s): J69.0 - Pneumonitis due to inhalation of food and vomit Status: Acute Assessment and Plan: CXR: Lungs are clear, without focal consolidation or pleural effusion. Cardiomediastinal silhouette is stable. Bones and soft tissues are unremarkable. - Risk Factors: dysphagia - started on CAP tx: Cefepime - Viral PCR: negative for Flu/COVID/RSV - Consider ordering legionella, mycoplasma and pneumococcal - no supplemental O2 requirement - supportive treatment tyl and ibu prn nebs prn tesslon perles prn - trend labs Monitor vital signs, I&Os, neuro status and patient is a fall risk Follow WBC, serum electrolytes, temperature curves and cultures Send sputum cultures On Room air; weaned off O2. Keep SpO2 greater than 88% Gentle IV fluid resuscitation (2) Sepsis: Code(s): A41.9 - Sepsis, unspecified organism Status: Acute Assessment and Plan: Meets SIRS criteria: WBC 13.2, Temp 100.4 - lactic acid: 1.8 - suspected source: Pneumonia - blood cultures drawn on 02/27 - UA: unremarkable - Urine culture - CXR: Lungs are clear, without focal consolidation or pleural effusion. Cardiomediastinal silhouette is stable. Bones and soft tissues are unremarkable. - Chest/abd/pelvis: Fecal impaction/constipation. Percutaneous gastrostomy tube balloon is in duodenum. Mildly enlarged AP window lymph nodes, nonspecific. No other significant findings identified. (3) Acute hypoxic respiratory failure: Code(s): J96.01 - Acute respiratory failure with hypoxia Status: Acute Assessment and Plan: - Symptoms: shortness of breath, lethargy - SpO2: In ED 88% on 2L NC, now 98% on RA - Oxygen supplementation: RA now - Suspected cause: Aspiration - EKG: Sinus tachy w/ supraventric premature complexes, RAD, RBBB - Chest XR: Lungs are clear, without focal consolidation or pleural effusion. Cardiomediastinal silhouette is stable. Bones and soft tissues are unremarkable. (4) Schizoaffective disorder: Code(s): F25.9 - Schizoaffective disorder, unspecified Status: Acute Assessment and Plan: - Aripiprazole 20mg (5) Dysphagia: Code(s): R13.10 - Dysphagia, unspecified Status: Acute Assessment and Plan: - NPO Plan Miscellaneous care * Code status. Full * VTE prophylaxis. SCDs; MARLON * Nutrition. PEG tube Time Spent With Patient Time: Subjective Date/time seen: 02/27/25 07:52 Review of Systems Review of Systems: All systems reviewed & are unremarkable except as noted in HPI and below ROS unobtainable: Yes unobtainable due to medical condition and unobtainable due to mental status Exam Narrative: Gen - ill appearing female in no acute respiratory distress who is nontoxic- appearing lying semi recumbent in bed HEENT - normocephalic. Atraumatic. Pupils equal round and reactive. Extraocular motions intact. Sclera clear and anicteric. Nares patent. Oropharynx was clear. No oral lesions. Moist mucous membranes. Tongue was midline. Palate antonella symmetrically. No facial asymmetry. Neck - neck was supple. No dominant adenopathy, thyromegaly or masses. Chest - lungs are clear to auscultation bilaterally. No wheezes or crackles. Breast exam was deferred. CV - heart was regular rate and rhythm. S1-S2. No murmurs gallops or rubs. Abd - abdomen was soft. Nontender. Nondistended. Positive bowel sounds. No organomegaly or masses. Ext - no clubbing, cyanosis or edema. 2+ DP pulses bilaterally. Neuro - patient is alert and oriented x0. Strength is 5/5 in both upper and lower extremities. Cranial nerves 2-12 are intact. Speech is clear. Psych - normal mood and affect. Patient is pleasant and cooperative. Skin - warm and dry. No rashes noted. Objective Data Vital Signs Vital Signs: Vital Signs - 24 hr 02/26/25 21:29 02/26/25 22:00 02/26/25 22:11 Temperature 100.4 F H Pulse Rate 123 H 113 H Respiratory Rate 24 H 21 H Blood Pressure 100/55 L 101/47 L Pulse Oximetry 95 95 94 Oxygen Delivery Nasal Cannula Nasal Cannula Oxygen Flow Rate 2 2 02/26/25 22:16 02/26/25 22:19 02/26/25 22:19 Temperature Pulse Rate 107 H 107 H Respiratory Rate 22 H 18 20 Blood Pressure 84/56 L 94/62 L Pulse Oximetry 94 95 95 Oxygen Delivery Oxygen Flow Rate 2 02/26/25 22:19 02/26/25 22:31 02/26/25 22:46 Temperature Pulse Rate 110 H 102 H 97 Respiratory Rate 21 H 18 14 Blood Pressure 94/62 L 90/57 L 95/66 L Pulse Oximetry 95 96 97 Oxygen Delivery Oxygen Flow Rate 02/26/25 23:31 02/26/25 23:38 02/26/25 23:46 Temperature Pulse Rate 87 96 100 Respiratory Rate 20 15 17 Blood Pressure 73/43 L 96/58 L 101/84 Pulse Oximetry 94 94 95 Oxygen Delivery Oxygen Flow Rate 02/26/25 23:53 02/27/25 00:16 02/27/25 01:30 Temperature Pulse Rate 100 105 H Respiratory Rate 16 20 Blood Pressure 105/66 95/60 L Pulse Oximetry 92 96 86 L Oxygen Delivery Room Air Oxygen Flow Rate 02/27/25 02:04 02/27/25 02:10 02/27/25 02:14 Temperature 98.8 F 98.8 F Pulse Rate 99 Respiratory Rate 24 H Blood Pressure 90/50 L Pulse Oximetry 92 94 Oxygen Delivery Nasal Cannula Oxygen Flow Rate 2 02/27/25 03:46 02/27/25 04:00 02/27/25 06:45 Temperature 97.1 F L Pulse Rate 87 82 Respiratory Rate 16 Blood Pressure 103/59 L Pulse Oximetry 99 Oxygen Delivery Room Air Oxygen Flow Rate Intake/Output Intake/Output: Intake & Output 02/24/25 02/25/25 02/26/25 02/27/25 23:59 23:59 23:59 23:59 Intake Total 1000 Balance 1000 Meds/Results Medications: Active Medications Generic Name Dose Route Start Last Admin Trade Name Freq PRN Reason Stop Dose Admin Acetaminophen 650 mg 02/27/25 01:37 Acetaminophen 325 Mg Tablet FEED TUBE Q4H PRN Mild Pain (1-3) or Fever Heparin Sodium (Porcine) 5,000 units 02/27/25 09:00 Heparin Sodium 5,000 Units/Ml Vial SUB-Q Q12HR MARLON Cefepime HCl 2 gm in 50 mls @ 100 mls/hr 02/27/25 12:00 Maxipime 2 Gm/Ns 50 Ml IVPB Q12HR MARLON Sodium Chloride 1,000 mls @ 125 mls/hr 02/27/25 01:40 02/27/25 02:06 Normal Saline Iv IV CONT 125 mls/hr .Q8H MARLON Administration Vancomycin HCl 1,000 mg in 250 mls @ 250 mls/hr 02/28/25 03:00 Vancomycin 1,000 Mg/Ns 250 Ml IVPB Q24H MARLON Melatonin 5 mg 02/27/25 06:35 Melatonin 5 Mg Tablet PO HS PRN Insomnia Prochlorperazine Edisylate 10 mg 02/27/25 06:35 Prochlorperazine Edisylate 10 Mg/2 Ml Vial IV PUSH Q6H PRN Nausea And Vomiting Radiology Results: ITS Impressions Chest X-Ray 02/27/25 06:09 Impression: Clear lungs. Chest/Abdomen/Pelvis CTA 02/27/25 06:12 Impression: Fecal impaction/constipation. Percutaneous gastrostomy tube balloon is in duodenum. Mildly enlarged AP window lymph nodes, nonspecific. No other significant findings identified. Labs Labs: Laboratory Results - last 24 hr 02/26/25 02/26/25 02/26/25 21:48 22:01 23:48 WBC 13.2 H RBC 4.30 Hgb 12.4 Hct 39.2 MCV 91.2 MCH 28.8 MCHC 31.6 L RDW 13.1 Plt Count 241 MPV 12.3 H Immature Gran % (Auto) 0.4 Neut % (Auto) 88.0 H Lymph % (Auto) 6.5 L [place] % (Auto) 4.0 Eos % (Auto) 0.9 Baso % (Auto) 0.2 Lymph # (Auto) 0.86 L [place] # (Auto) 0.5 Eos # (Auto) 0.1 Baso # (Auto) 0.0 Abs Immat Gran (auto) 0.05 H Absolute Neuts (auto) 11.6 H Absolute Nucleated RBC 0.000 Nucleated RBC % 0.0 PT 13.0 INR 0.9 APTT 32.6 Sodium 136 L Potassium 4.2 Chloride 101 Carbon Dioxide 27 Anion Gap 8 BUN 13 Creatinine 0.88 Estim Creat Clear Calc 47 Estimated GFR > 60 Glucose 197 H Lactic Acid Calcium 9.0 Magnesium 1.8 Total Bilirubin 0.3 AST 20 ALT 12 Alkaline Phosphatase 104 Troponin I < 0.012 Total Protein 7.0 Albumin 3.7 Procalcitonin 0.1 Urine Color Yellow Urine Appearance Clear Urine pH 6.0 Ur Specific [place] 1.016 Urine Protein Negative Urine Glucose (UA) Negative Urine Ketones Trace H Ur Blood (Man) Negative Urine Nitrate Negative Urine Bilirubin Negative Urine Urobilinogen 1.0 Leukocyte Esterase Rfl Negative Nasal MRSA (PCR) Influenza A (RT-PCR) Negative Influenza B (RT-PCR) Negative RSV (RT-PCR) Negative SARS-CoV-2 RNA (RT-PCR) Negative 02/27/25 02/27/25 00:10 04:57 WBC RBC Hgb Hct MCV MCH MCHC RDW Plt Count MPV Immature Gran % (Auto) Neut % (Auto) Lymph % (Auto) [place] % (Auto) Eos % (Auto) Baso % (Auto) Lymph # (Auto) [place] # (Auto) Eos # (Auto) Baso # (Auto) Abs Immat Gran (auto) Absolute Neuts (auto) Absolute Nucleated RBC Nucleated RBC % PT INR APTT Sodium Potassium Chloride Carbon Dioxide Anion Gap BUN Creatinine Estim Creat Clear Calc Estimated GFR Glucose Lactic Acid 1.8 Calcium Magnesium Total Bilirubin AST ALT Alkaline Phosphatase Troponin I Total Protein Albumin Procalcitonin Urine Color Urine Appearance Urine pH Ur Specific [place] Urine Protein Urine Glucose (UA) Urine Ketones Ur Blood (Man) Urine Nitrate Urine Bilirubin Urine Urobilinogen Leukocyte Esterase Rfl Nasal MRSA (PCR) Not detected Influenza A (RT-PCR) Influenza B (RT-PCR) RSV (RT-PCR) SARS-CoV-2 RNA (RT-PCR) Quality VTE Prophylaxis VTE prophylaxis: mechanical ordered and pharmacologic ordered
[2025-02-27] MEDS: HEPARIN SODIUM 5,000 UNITS/ML VIAL 5000 UNITS SUB-Q ×2 (08:46→20:14)
[2025-02-27 08:47] LABS: Basophils Percent Auto 0.2 % (0.2-1.2); Eosinophils Absolute Auto 0.2 K/mm3 (0-0.3); Eosinophils Percent Auto 1.4 % (0-4.4); Hematocrit 38.8 % (37.0-47.0); Hemoglobin 11.7 g/dL (12.0-15.0); Immature Granulocyte Absolute 0.05 K/mm3 (0.00-0.031); Immature Granulocyte Percent A 0.5 % (0-0.5); Lymphocytes Absolute Auto 1.39 K/mm3 (0.9-3.2); Lymphocytes Percent Auto 12.5 % (18.3-44.2); Mean Corpuscular HGB Conc 30.2 g/dl (32-36); Mean Corpuscular Hemoglobin 28.7 pg (26-34); Mean Corpuscular Volume 95.3 fl (80-100); Mean Platelet Volume 12.3 fl (7.4-10.4); Monocytes Absolute Auto 0.7 K/mm3 (0.1-0.6); Monocytes Percent Auto 6.4 % (2.6-8.5); Neutrophils Absolute Auto 8.8 K/mm3 (1.3-6.7); Platelet Count Result 197 k/mm3 (150-375); Red Blood Count 4.07 M/mm3 (4.2-5.4); Red Cell Distribution Width 13.2 % (11.5-14.5); White Blood Count 11.1 K/mm3 (4.5-10.0)
[2025-02-27 09:01] LABS: Alanine Aminotransferase 9 U/L (6-35); Albumin Level 3.2 g/dL (3.5-5.1); Alkaline Phosphatase 83 U/L (38-126); Anion Gap 8 mmol/L (4-12); Aspartate Amino Transferase 20 U/L (14-36); Bilirubin,Total 0.4 mg/dL (0.2-1.3); Blood Urea Nitrogen 10 mg/dL (7-17); Calcium 8.5 mg/dL (8.4-10.2); Carbon Dioxide 21 mmol/L (22-30); Chloride 110 mmol/L (98-107); Estimated CRCL calculation 55 ml/min; Estimated Glomerular Filt Rate > 60; Glucose 68 mg/dL (65-110); Potassium 4.4 mmol/L (3.4-5.0); Sodium 139 mmol/L (137-145)
--- NOTE | 2025-02-27 13:16 | PM.DS ---
DS: Admitting Diagnosis Discharge Date 02/27/2025 Admitting Diagnosis Fever Probable Aspiration; rhonchi at bedside Constipation DS: Discharge Diagnosis Discharge Diagnosis (1) Aspiration pneumonia: Code(s): J69.0 - Pneumonitis due to inhalation of food and vomit Status: Acute (2) Sepsis: Code(s): A41.9 - Sepsis, unspecified organism Status: Acute (3) Acute hypoxic respiratory failure: Code(s): J96.01 - Acute respiratory failure with hypoxia Status: Acute (4) Schizoaffective disorder: Code(s): F25.9 - Schizoaffective disorder, unspecified Status: Acute (5) Dysphagia: Code(s): R13.10 - Dysphagia, unspecified Status: Acute DS: Summary Hospital Course Reason for hospitalization: Fever Probable Aspiration Hospital Course: Amanda Deborah this is 60-year-old female with a medical history significant for intellectual disability, schizoaffective disorder, dysphagia. A resident of [facility], she was brought in after concerned staff member stenosis she developed fevers; with no known modifying factors, her symptom was associated with lethargy and a deviation from a previously known cognitive baseline There were no associated symptoms of fevers, chills, malaise, flank pain, diarrhea, emesis. She does not smoke/chew tobacco, drink alcohol or consume recreational/illicit drugs Work-up findings: CT chest, abdomen, Pelvis: Fecal impaction/constipation. Percutaneous gastrostomy tube balloon is in duodenum. Mildly enlarged AP window lymph nodes, nonspecific. No other significant findings identified. CXR: Unremarkable WBC 13.2; HGB 12.4; MCV 91; PO2 241. INR 0.9; PT 13; 32.6. Na 136; K 4.2; Cl 101; CO2 27; HGB 8; BUN 13; CR 0.88; GFR 47 Unremarkable liver chemistries. Troponin 0.012; procalcitonin 0.1. UA: Unremarkable. Influenza a/B, RSV, COVID-19: Negative Upon admission to the unit, patient had a temperature range of 98.1F to 98.8F. Other vitals remained stable as well. WBC was mildly elevated at 11.1, however given negative CXR, clear lung sounds and Chest/Abd/pelvis CTA showing clear lungs, low suspicion for Pneumonia. Rest of Chest/Abd/pelvis CTA showed Fecal impaction/constipation. Percutaneous gastrostomy tube balloon is in duodenum. Mildly enlarged AP window lymph nodes, nonspecific. No other significant findings identified. There was some concern from the nursing facility that her O2 saturation was 88% on 2L nasal cannula. Upon admission she was found to have an O2 saturation of mid to high 90%s, reaching 99% at one point. The nursing facility was also contacted and confirmed that she is on 2L NC at base line. Given suppository for constipation. Given unremarkable ED findings and lab work/imaging monitored throughout visit, low suspicion for infectious process. Pt is otherwise stable at this time and is at baseline. Blood cultures are still pending at this time but this can be followed up with outpatient. Patient is stable for discharge at this time. Status at Discharge Functional status at discharge: bed bound Overall status at discharge: patient is back to baseline Time Spent with Patient Time attestation: Total time spent providing and/or coordinating discharge services:45 Exam Narrative: Gen - ill appearing female in no acute respiratory distress who is nontoxic-appearing lying semi recumbent in bed HEENT - normocephalic. Atraumatic. Pupils equal round and reactive. Extraocular motions intact. Sclera clear and anicteric. Nares patent. Oropharynx was clear. No oral lesions. Moist mucous membranes. Tongue was midline. Palate antonella symmetrically. No facial asymmetry. Neck - neck was supple. No dominant adenopathy, thyromegaly or masses. Chest - lungs are clear to auscultation bilaterally. No wheezes or crackles. Breast exam was deferred. CV - heart was regular rate and rhythm. S1-S2. No murmurs gallops or rubs. Abd - abdomen was soft. Nontender. Nondistended. Positive bowel sounds. No organomegaly or masses. Ext - no clubbing, cyanosis or edema. 2+ DP pulses bilaterally. Neuro - patient is alert and oriented x0. Speech is clear. Psych - normal mood and affect. Patient is pleasant and cooperative. Skin - warm and dry. No rashes noted. DS: Data Data Completed and Pending Pending studies at discharge: Micro Blood Specimen Cultures x2 Labs on day of discharge: Labs from last 24 hours 02/27/25 02/27/25 02/27/25 08:35 04:57 00:10 WBC 11.1 H RBC 4.07 L Hgb 11.7 L Hct 38.8 MCV 95.3 MCH 28.7 MCHC 30.2 L RDW 13.2 Plt Count 197 MPV 12.3 H Immature Gran % (Auto) 0.5 Neut % (Auto) 79.0 H Lymph % (Auto) 12.5 L [place] % (Auto) 6.4 Eos % (Auto) 1.4 Baso % (Auto) 0.2 Lymph # (Auto) 1.39 [place] # (Auto) 0.7 H Eos # (Auto) 0.2 Baso # (Auto) 0.0 Abs Immat Gran (auto) 0.05 H Absolute Neuts (auto) 8.8 H Absolute Nucleated RBC 0.000 Nucleated RBC % 0.0 PT INR APTT Sodium 139 Potassium 4.4 Chloride 110 H Carbon Dioxide 21 L Anion Gap 8 BUN 10 Creatinine 0.74 Estim Creat Clear Calc 55 Estimated GFR > 60 Glucose 68 Lactic Acid 1.8 Calcium 8.5 Magnesium Total Bilirubin 0.4 AST 20 ALT 9 Alkaline Phosphatase 83 Troponin I Total Protein 6.0 L Albumin 3.2 L Procalcitonin Urine Color Urine Appearance Urine pH Ur Specific [place] Urine Protein Urine Glucose (UA) Urine Ketones Ur Blood (Man) Urine Nitrate Urine Bilirubin Urine Urobilinogen Leukocyte Esterase Rfl Nasal MRSA (PCR) Not detected Influenza A (RT-PCR) Influenza B (RT-PCR) RSV (RT-PCR) SARS-CoV-2 RNA (RT-PCR) 02/26/25 02/26/25 02/26/25 23:48 22:01 21:48 WBC 13.2 H RBC 4.30 Hgb 12.4 Hct 39.2 MCV 91.2 MCH 28.8 MCHC 31.6 L RDW 13.1 Plt Count 241 MPV 12.3 H Immature Gran % (Auto) 0.4 Neut % (Auto) 88.0 H Lymph % (Auto) 6.5 L [place] % (Auto) 4.0 Eos % (Auto) 0.9 Baso % (Auto) 0.2 Lymph # (Auto) 0.86 L [place] # (Auto) 0.5 Eos # (Auto) 0.1 Baso # (Auto) 0.0 Abs Immat Gran (auto) 0.05 H Absolute Neuts (auto) 11.6 H Absolute Nucleated RBC 0.000 Nucleated RBC % 0.0 PT 13.0 INR 0.9 APTT 32.6 Sodium 136 L Potassium 4.2 Chloride 101 Carbon Dioxide 27 Anion Gap 8 BUN 13 Creatinine 0.88 Estim Creat Clear Calc 47 Estimated GFR > 60 Glucose 197 H Lactic Acid Calcium 9.0 Magnesium 1.8 Total Bilirubin 0.3 AST 20 ALT 12 Alkaline Phosphatase 104 Troponin I < 0.012 Total Protein 7.0 Albumin 3.7 Procalcitonin 0.1 Urine Color Yellow Urine Appearance Clear Urine pH 6.0 Ur Specific [place] 1.016 Urine Protein Negative Urine Glucose (UA) Negative Urine Ketones Trace H Ur Blood (Man) Negative Urine Nitrate Negative Urine Bilirubin Negative Urine Urobilinogen 1.0 Leukocyte Esterase Rfl Negative Nasal MRSA (PCR) Influenza A (RT-PCR) Negative Influenza B (RT-PCR) Negative RSV (RT-PCR) Negative SARS-CoV-2 RNA (RT-PCR) Negative Imaging Radiologist's impression: XR chest 1V portable 02/26/25 Clear lungs. CTA chest PE abdomen pel 02/27/25 Impression: Fecal impaction/constipation. Percutaneous gastrostomy tube balloon is in duodenum. Mildly enlarged AP window lymph nodes, nonspecific. No other significant findings identified. Discharge Plan Discharge Attending physician on discharge: Seth Villafuerte Discharging Clinician: Seth Villafuerte Anticipated Discharge Date/Time: 02/27/25 13:13 Patient Disposition: NH Shelter/Asst Living Activity: as tolerated Diet: as tolerated Discharge Instructions: Discharge disposition: Stable Take medications as prescribed Monitor blood pressures Take caution while standing, rising, or moving Change positions slowly taking a break between each position change If you standing feel dizzy sit back down and take a break Encouraged to continue with yearly vaccinations Return to the emergency department if he developed sudden shortness of breath, chest pain, nausea, vomiting, upset stomach or intractable diarrhea Return to the emergency department if you develop fever greater than 101.5 Follow-up with the primary care physician within 1-2 weeks Thank you for [facility] for your healthcare needs Patient Instructions: Antibiotic Form Patient Language: Macedonian Stand Alone Forms: General Discharge Information Follow-up/Referrals: Prakash,MD Nabil [Primary Care Provider] - Discharge Medications: Continued valproic acid 250 mg Capsule 750 mg PO HS lisinopril 10 mg Tablet 10 mg PO DAILY bupropion HCl [Wellbutrin XL] 150 mg Tablet Extended Release 24 Hr 150 mg PO QAM acetaminophen 325 mg Tablet 650 mg feeding tube Q4H PRN (Reason: pain or fever) Qty: 10 0RF alprazolam [Xanax] 0.5 mg Tablet 0.5 mg feeding tube TID Qty: 10 0RF aripiprazole 20 mg Tablet 20 mg feeding tube DAILY Qty: 10 0RF Date of admission: 02/27/25 01:38 Primary Care Provider: PrakashNabil Admitting Provider: Jim Andersen Attending physician on admission: Seth Villafuerte Condition: Stable Quality VTE Prophylaxis VTE prophylaxis: mechanical ordered and pharmacologic ordered
--- NOTE | 2025-02-27 18:19 | PC.NURSE ---
New rash noted to left arm. Rash red and warm to touch. Dr Brannon notified and will come to see patient.
--- NOTE | 2025-02-27 18:41 | P.PNCROSS_ITS ---
Event Note Event Note Event Note: Nurse called regarding a new rash that was not evident during yesterday. Upon e xamination evidence of warmth. Started Ceftriaxone and Doxycycline in the possibility of cellulitis and order UE LT Doppler to r/o DVT. Monitor the rash. Differential diagnosis contact dermatitis vs eczema. If no improvement will try steroids.
[2025-02-27] MEDS: DOXYCYCLINE 100 MG/NS 100 ML 100 MG/100 ML BAG IVPB (20:13)
[2025-02-27] MEDS: VALPROIC ACID LIQ 250 MG/5 ML ORAL SOLUTION UDC 750 MG FEED TUBE (20:34)
[2025-02-28] VITALS (9 sets, daily range): BP systolic 113–114; BP diastolic 66–71; PULSE 73–104; RESP 18–20; TEMP 36.4–36.8; O2SAT 96–97
[2025-02-28] MEDS: SODIUM CHLORIDE 0.9% IV 1,000 ML 125 ML IV CONT (01:58)
[2025-02-28 05:51] LABS: Basophils Percent Auto 0.2 % (0.2-1.2); Eosinophils Absolute Auto 0.1 K/mm3 (0-0.3); Eosinophils Percent Auto 1.1 % (0-4.4); Hematocrit 32.3 % (37.0-47.0); Hemoglobin 10.4 g/dL (12.0-15.0); Immature Granulocyte Absolute 0.04 K/mm3 (0.00-0.031); Immature Granulocyte Percent A 0.4 % (0-0.5); Lymphocytes Absolute Auto 0.91 K/mm3 (0.9-3.2); Lymphocytes Percent Auto 9.7 % (18.3-44.2); Mean Corpuscular HGB Conc 32.2 g/dl (32-36); Mean Corpuscular Hemoglobin 28.7 pg (26-34); Mean Corpuscular Volume 89.2 fl (80-100); Mean Platelet Volume 11.6 fl (7.4-10.4); Monocytes Absolute Auto 0.6 K/mm3 (0.1-0.6); Monocytes Percent Auto 6.4 % (2.6-8.5); Neutrophils Absolute Auto 7.7 K/mm3 (1.3-6.7); Neutrophils Percent Auto 82.2 % (45.5-73.1); Platelet Count Result 217 k/mm3 (150-375); Red Blood Count 3.62 M/mm3 (4.2-5.4); White Blood Count 9.4 K/mm3 (4.5-10.0)
[2025-02-28 06:08] LABS: Alanine Aminotransferase 10 U/L (6-35); Albumin Level 2.9 g/dL (3.5-5.1); Alkaline Phosphatase 87 U/L (38-126); Anion Gap 7 mmol/L (4-12); Aspartate Amino Transferase 20 U/L (14-36); Bilirubin,Total 0.2 mg/dL (0.2-1.3); Blood Urea Nitrogen 13 mg/dL (7-17); Calcium 8.1 mg/dL (8.4-10.2); Carbon Dioxide 21 mmol/L (22-30); Chloride 109 mmol/L (98-107); Estimated CRCL calculation 49 ml/min; Estimated Glomerular Filt Rate > 60; Glucose 107 mg/dL (65-110); Sodium 137 mmol/L (137-145)
[2025-02-28] MEDS: DOXYCYCLINE 100 MG/NS 100 ML 100 MG/100 ML BAG IVPB (09:27)
[2025-02-28] MEDS: ARIPiprazole 10 MG TABLET 20 MG FEED TUBE (09:27)
[2025-02-28] MEDS: HEPARIN SODIUM 5,000 UNITS/ML VIAL 5000 UNITS SUB-Q (09:27)
--- NOTE | 2025-02-28 11:59 | PCNFU ---
Nutrition Follow-Up Complete: Swallowing Difficulties as related to Dysphagia as evidenced by G tube feedings Goal: Meet estimated nutritional needs. Patient is meeting goal. No new goal. Pt current nutrition is Jevity 1.2 at 60 ml/hr. Last recorded weight is 59.8 kg. Bowel Motility:Last reported BM 02/28 Labs Reviewed: Glu 197, Na 136 Meds Noted: Rocephin, Heparin. Skin: WNL Additional Notes: Patient started on PEG tube feedings of Jevity 1.2 at 60 ml/hr. Flush 100 ml q 4 hours. Spoke with nursing today, patient is tolerated feedings. Total Nutrition: 1584 kcal/73 gm protein/1065 ml water. Agree with diet orders. Will monitor weight, labs, skin, diet orders, meds every Thursday and Thursday.
--- NOTE | 2025-02-28 14:43 | PM.DS ---
DS: Admitting Diagnosis Discharge Date 02/28/2025 Admitting Diagnosis Fever Probable Aspiration Constipation DS: Discharge Diagnosis Discharge Diagnosis (1) Aspiration pneumonia: Code(s): J69.0 - Pneumonitis due to inhalation of food and vomit Status: Acute (2) Sepsis: Code(s): A41.9 - Sepsis, unspecified organism Status: Acute (3) Acute hypoxic respiratory failure: Code(s): J96.01 - Acute respiratory failure with hypoxia Status: Acute (4) Schizoaffective disorder: Code(s): F25.9 - Schizoaffective disorder, unspecified Status: Acute (5) Dysphagia: Code(s): R13.10 - Dysphagia, unspecified Status: Acute DS: Summary Hospital Course Reason for hospitalization: Fever Probable Aspiration Hospital Course: Amanda Deborah this is 60-year-old female with a medical history significant for intellectual disability, schizoaffective disorder, dysphagia. A resident of [facility], she was brought in after concerned staff member stenosis she developed fevers; with no known modifying factors, her symptom was associated with lethargy and a deviation from a previously known cognitive baseline There were no associated symptoms of fevers, chills, malaise, flank pain, diarrhea, emesis. She does not smoke/chew tobacco, drink alcohol or consume recreational/illicit drugs Work-up findings: CT chest, abdomen, Pelvis: Fecal impaction/constipation. Percutaneous gastrostomy tube balloon is in duodenum. Mildly enlarged AP window lymph nodes, nonspecific. No other significant findings identified. CXR: Unremarkable WBC 13.2; HGB 12.4; MCV 91; PO2 241. INR 0.9; PT 13; 32.6. Na 136; K 4.2; Cl 101; CO2 27; HGB 8; BUN 13; CR 0.88; GFR 47 Unremarkable liver chemistries. Troponin 0.012; procalcitonin 0.1. UA: Unremarkable. Influenza a/B, RSV, COVID-19: Negative Upon admission to the unit, patient had a temperature range of 98.1F to 98.8F. Other vitals remained stable as well. WBC was mildly elevated at 11.1, however given negative CXR, clear lung sounds and Chest/Abd/pelvis CTA showing clear lungs, low suspicion for Pneumonia. Rest of Chest/Abd/pelvis CTA showed Fecal impaction/constipation. Percutaneous gastrostomy tube balloon is in duodenum. Mildly enlarged AP window lymph nodes, nonspecific. No other significant findings identified. There was some concern from the nursing facility that her O2 saturation was 88% on 2L nasal cannula. Upon admission she was found to have an O2 saturation of mid to high 90%s, reaching 99% at one point. The nursing facility was also contacted and confirmed that she is on 2L NC at base line. Given suppository for constipation. Given unremarkable ED findings and lab work/imaging monitored throughout visit, low suspicion for infectious process. Before she was able to be discharged, nursing staff found that the patient's right forearm had a rash that was not evident throughout her stay. Dr. Winter was able to assess the patient and placed them on Ceftriaxone and Doxycycline for possible Cellulitis and ordered an UE LT Doppler to r/o DVT. This test was negative for any evidence of a DVT. Pt is otherwise stable at this time and is at baseline. Preliminary Blood cultures results are negative for any growth. Patient is stable for discharge at this time. Status at Discharge Functional status at discharge: bed bound Overall status at discharge: patient is back to baseline Time Spent with Patient Time attestation: Total time spent providing and/or coordinating discharge services: 30 Exam Narrative: Gen - ill appearing female in no acute respiratory distress who is nontoxic-appearing lying semi recumbent in bed HEENT - normocephalic. Atraumatic. Pupils equal round and reactive. Extraocular motions intact. Sclera clear and anicteric. Nares patent. Oropharynx was clear. No oral lesions. Moist mucous membranes. Tongue was midline. Palate antonella symmetrically. No facial asymmetry. Neck - neck was supple. No dominant adenopathy, thyromegaly or masses. Chest - lungs are clear to auscultation bilaterally. No wheezes or crackles. Breast exam was deferred. CV - heart was regular rate and rhythm. S1-S2. No murmurs gallops or rubs. Abd - abdomen was soft. Nontender. Nondistended. Positive bowel sounds. No organomegaly or masses. Ext - no clubbing, cyanosis or edema. 2+ DP pulses bilaterally. Neuro - patient is alert and oriented x0. Speech is clear. Psych - normal mood and affect. Patient is pleasant and cooperative. Skin - Erythematous rash on right forearm with some warmth. No ecchymosis, drainage or abscess. Otherwise warm and dry. No other rashes noted. DS: Data Data Completed and Pending Labs on day of discharge: Labs from last 24 hours 02/28/25 05:41 WBC 9.4 RBC 3.62 L Hgb 10.4 L Hct 32.3 L MCV 89.2 D MCH 28.7 MCHC 32.2 RDW 13.0 Plt Count 217 MPV 11.6 H Immature Gran % (Auto) 0.4 Neut % (Auto) 82.2 H Lymph % (Auto) 9.7 L [place] % (Auto) 6.4 Eos % (Auto) 1.1 Baso % (Auto) 0.2 Lymph # (Auto) 0.91 [place] # (Auto) 0.6 Eos # (Auto) 0.1 Baso # (Auto) 0.0 Abs Immat Gran (auto) 0.04 H Absolute Neuts (auto) 7.7 H Absolute Nucleated RBC 0.000 Nucleated RBC % 0.0 Sodium 137 Potassium 4.0 Chloride 109 H Carbon Dioxide 21 L Anion Gap 7 BUN 13 Creatinine 0.84 Estim Creat Clear Calc 49 Estimated GFR > 60 Glucose 107 Calcium 8.1 L Total Bilirubin 0.2 AST 20 ALT 10 Alkaline Phosphatase 87 Total Protein 6.0 L Albumin 2.9 L Preliminary micro results at discharge 02/27/25 00:10 Blood Culture - Preliminary Blood 02/27/25 00:10 Blood Culture - Preliminary Blood Imaging Radiologist's impression: US venous doppler UE LT 02/28/25 IMPRESSION: 1. Patent left upper extremity veins. No evidence of deep venous thrombosis. CTA chest PE abdomen pel 02/27/25 Impression: Fecal impaction/constipation. Percutaneous gastrostomy tube balloon is in duodenum. Mildly enlarged AP window lymph nodes, nonspecific. No other significant findings identified. XR chest 1V portable 02/26/25 Impression: Clear lungs. Discharge Plan Discharge Attending physician on discharge: Seth Villafuerte Discharging Clinician: Seth Villafuerte Anticipated Discharge Date/Time: 02/27/25 13:13 Patient Disposition: NH Longterm/Asst Living Activity: as tolerated Diet: as tolerated Discharge Instructions: Discharge disposition: Stable Take medications as prescribed. I will be prescribing Dicloxacillin to be taken 4 times daily for 5 total days. Monitor blood pressures Take caution while standing, rising, or moving Change positions slowly taking a break between each position change If you standing feel dizzy sit back down and take a break Encouraged to continue with yearly vaccinations Return to the emergency department if he developed sudden shortness of breath, chest pain, nausea, vomiting, upset stomach or intractable diarrhea Return to the emergency department if you develop fever greater than 101.5 Follow-up with the primary care physician within 1-2 weeks Thank you for [facility] for your healthcare needs Patient Instructions: Antibiotic Form Patient Language: Luxembourgish Stand Alone Forms: General Discharge Information Follow-up/Referrals: Mary,MD Nabil [Primary Care Provider] - Discharge Medications: New dicloxacillin 500 mg capsule 500 mg PO Q6H 5 Days Qty: 20 0RF Continued valproic acid 250 mg Capsule 750 mg PO HS lisinopril 10 mg Tablet 10 mg PO DAILY bupropion HCl [Wellbutrin XL] 150 mg Tablet Extended Release 24 Hr 150 mg PO QAM acetaminophen 325 mg Tablet 650 mg feeding tube Q4H PRN (Reason: pain or fever) Qty: 10 0RF alprazolam [Xanax] 0.5 mg Tablet 0.5 mg feeding tube TID Qty: 10 0RF aripiprazole 20 mg Tablet 20 mg feeding tube DAILY Qty: 10 0RF Date of admission: 02/27/25 01:38 Primary Care Provider: MaryNabil Admitting Provider: Jim Andersen Attending physician on admission: Seth Villafuerte Condition: Stable Quality VTE Prophylaxis VTE prophylaxis: mechanical ordered and pharmacologic ordered
== END 2025-02-28 17:17 ==
LOC: ANHED 02-27 01:40 → ANH3MED 02-27 02:09
PROVIDERS: Admitting Provider Internal Medicine; Emergency Provider Emergency Medicine; PCP Internal Medicine; Visit Provider Physician Assistant
DX: A41.9 Sepsis, unspecified organism (principal); J69.0 Pneumonitis due to inhalation of food and vomit; J96.01 Acute respiratory failure with hypoxia; R21 Rash and other nonspecific skin eruption; F25.9 Schizoaffective disorder, unspecified; R13.10 Dysphagia, unspecified; K59.00 Constipation, unspecified; G80.9 Cerebral palsy, unspecified; F03.90 Unspecified dementia, unspecified severity, without behavioral disturbance, psychotic disturbance, mood disturbance, and anxiety; Z93.1 Gastrostomy status; G40.909 Epilepsy, unspecified, not intractable, without status epilepticus; F41.9 Anxiety disorder, unspecified; F32.9 Major depressive disorder, single episode, unspecified; Z20.822 Contact with and (suspected) exposure to COVID-19
CPT/HCPCS: 36415; 71045; 71275; 74177; 80053; 81003; 83605; 83735; 84145; 84484; 85025; 85610; 85730; 87040; 87637; 87641; 93005; 93971; 96361; 96365; 96366; 96367; 96375; 99285; A9270; G0378; G0379; J0692; J0696; J1644; J3370; J7030; Q9967

== ENCOUNTER 2025-05-30 23:05 | Inpatient (IN) | payer MEDICARE, MEDICAID, SELFPAY ==
[2025-05-30] VITALS (9 sets, daily range): BP systolic 78–117; BP diastolic 37–74; PULSE 127–143; RESP 20–28; TEMP 38.1–38.8; O2SAT 73–98
--- NOTE | ~2025-05-30 | XR_ITS ---
XR chest 1V portable 06/05/2025 05:37 Indication: Aspiration pneumonia Procedure: AP portable chest Comparison: Comparison to multiple prior studies sequentially, with oldest reviewed study dated 05/31. Findings: Persistent right basilar consolidation. Central line tip in the SVC. Left lung clear. No pn eumothorax. No edema. No acute osseous abnormality. Impression: 1: Persistent right basilar airspace consolidation which may represent pneumonia and/or atelectasis. Reviewed, dictated and finalized at location A. Impression: 1: Persistent right basilar airspace consolidation which may represent pneumoni a and/or atelectasis.
--- NOTE | ~2025-05-30 | XR_ITS ---
Portable chest x-ray Comparison: 05/30/2025 Clinical History: Aspiration pneumonia Findings: Endotracheal tube, NG tube and left subclavian line are in place. Extensive right basilar consolidation with small right pleural effusion is present. Left lung clear. Cardiomediastinal silho uette is stable. Bones and soft tissues are unremarkable. Impression: Stable extensive right basilar consolidation and probable small right pleural effusion. Support tubes, as above. Reviewed, dictated and finalized at location M. Impression: Stable extensive right basilar consolidation and probable small right pleural e ffusion. Support tubes, as above.
--- NOTE | ~2025-05-30 | XR_ITS ---
Portable chest x-ray Comparison: 06/03/2025 Clinical History: Aspiration pneumonia Findings: Endotracheal tube, NG tube, and left subclavian line are in place. Right basilar consolida tion again present. Left lung clear. Cardiomediastinal silhouette is stable. Bones and soft tissues are unremarkable. Impression: Stable right basilar consolidation. Stable support tubes. Reviewed, dictated and finalized at location . Impression: Stable right basilar consolidation. Stable support tubes.
--- NOTE | ~2025-05-30 | XR_ITS ---
Portable chest x-ray Comparison: 05/30/2025 at 11:26 PM Clinical History: Tube placement Findings: Endotracheal tube and left subclavian line are in satisfactory positions. NG tube side por ts of the distal esophagus. Complete right lower lobe consolidation and present. Left lung remains cl ear. Cardiomediastinal silhouette is stable. Bones and soft tissues are unremarkable. Impression: NG tube side-port is distal esophagus. Further advancement into the stomach required. Additional support tubes in satisfactory position. Persistent complete right lower lobe consolidation. Reviewed, dictated and finalized at location . Impression: NG tube side-port is distal esophagus. Further advancement into the stomach req uired. Additional support tubes in satisfactory position. Persistent complete right lower lobe consolidation.
--- NOTE | ~2025-05-30 | XR_ITS ---
Portable chest x-ray Comparison: 06/01/2025 Clinical History: Aspiration pneumonia Findings: Endotracheal tube, NG tube, and left subclavian line are in place. Extensive right basilar consolidation again present with possible minimal right pleural effusion. Left lung clear. Cardiome diastinal silhouette is stable. Bones and soft tissues are unremarkable. Impression: Stable extensive right basilar consolidation, compatible with pneumonia. Stable support tubes. Reviewed, dictated and finalized at location . Impression: Stable extensive right basilar consolidation, compatible with pneumonia. Stable support tubes.
--- NOTE | ~2025-05-30 | CT_ITS ---
Clinical Indication: Sepsis, altered mental status CT Scan of the Chest, Abdomen, and Pelvis with Contrast: Technique: Contiguous sections were acquired throughout the chest, abdomen, and pelvis after intraven ous administration of 100 cc of Omnipaque 350. Dose reduction technique was used on this scan by veto madriding automated exposure control and iterative reconstruction technique. The dose-length product (DL P) was 302.45 mGy-cm. Comparison: 02/27/2025 Findings: There is no evidence of any significant mediastinal, hilar or axillary lymphadenopathy. The mediastin al soft tissues appear normal. No pulmonary embolus. No aortic aneurysm or dissection. There is no evidence of pleural or pericardial effusion. Bronchus intermedius and the right lower and middle lobe bronchi are opacified with fluid. There is d ense, complete consolidation of the right middle and lower lobes with central air bronchograms. There innumerable tree-in-bud and centrilobular nodules in the right upper lobe. Left lung demonstrates pr obable mild left basilar atelectatic change. The liver, spleen, pancreas, gallbladder, right adrenal gland, and kidneys are within normal limits. 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 No evidence of aortic aneurysm. No lymphadenopathy. There is wall thickening of sigmoid colon and rectum. Possible additional mild wall thickening of asc ending and descending colon. No bowel obstruction. No abscess or free air. Reed catheter present within the urinary bladder, some intraluminal air. No pelvic mass seen. No asc ites. Impression: Complete right middle and lower lobe consolidation with a tree-in-bud and centrilobular nodules in th e right upper lobe. Findings are compatible with extensive aspiration pneumonia, with fluid opacifica tion of bronchus intermedius. Possible mild wall thickening extensively involving large bowel, as detailed above. Correlate for inf ectious/inflammatory colitis versus underdistention. Reviewed, dictated and finalized at location . Impression: Complete right middle and lower lobe consolidation with a tree-in-bud and centr ilobular nodules in the right upper lobe. Findings are compatible with extensiv e aspiration pneumonia, with fluid opacification of bronchus intermedius. Possible mild wall thickening extensively involving large bowel, as detailed ab ove. Correlate for infectious/inflammatory colitis versus underdistention.
--- NOTE | ~2025-05-30 | XR_ITS ---
Upright portable view of the abdomen Clinical history: NG tube placement Findings: NG tube side-port is at the distal esophagus. Bowel gas pattern is nonspecific. No evidence for obstruction or free air. No abnormal mass lesion or calcification is seen. Osseous structures ar e intact. Right lower lobe consolidation noted. Impression: NG tube side-port in the distal esophagus. Further advancement into the stomach advised by at least 8 cm. Reviewed, dictated and finalized at location . Impression: NG tube side-port in the distal esophagus. Further advancement into the stomach advised by at least 8 cm.
--- NOTE | ~2025-05-30 | XR_ITS ---
XR chest 1V portable 06/03/2025 05:31 Indication: Aspiration pneumonia Procedure: AP portable chest Comparison: Comparison to multiple prior studies sequentially, with oldest reviewed study dated 05/30. Findings: Endotracheal tube tip 2.8 cm above the zhou. NG tube in the stomach. Central venous katiana ter tip in the SVC. There is asymmetric airspace disease in the right lung, consistent with pneumonia . Impression: 1: Asymmetric right-sided airspace disease, compatible with pneumonia. No significant change compared with prior studies. Reviewed, dictated and finalized at location A. Impression: 1: Asymmetric right-sided airspace disease, compatible with pneumonia. No signi ficant change compared with prior studies.
--- NOTE | ~2025-05-30 | XR_ITS ---
Portable chest x-ray Comparison: 05/30/2025 Clinical History: Line placement Findings: Left subclavian line in satisfactory position. Complete right lower lobe consolidation aga in present. Left lung remains clear. Cardiomediastinal silhouette is stable. Bones and soft tissues are unremarkable. Impression: Left subclavian line in satisfactory position. No pneumothorax. Persistent complete consolidation of the right lower lobe. Correlate for pneumonia versus possibly at electasis. Reviewed, dictated and finalized at location M. Impression: Left subclavian line in satisfactory position. No pneumothorax. Persistent complete consolidation of the right lower lobe. Correlate for pneumo mela versus possibly atelectasis.
--- NOTE | ~2025-05-30 | XR_ITS ---
Portable chest x-ray Comparison: 02/26/2025 Clinical History: Respiratory distress Findings: There is small right pleural effusion with complete right lower lobe atelectasis or consol idation. Left lung clear. Cardiomediastinal silhouette is stable. Bones and soft tissues are unremar kable. Impression: Complete consolidation of the right lower lobe could reflect lobar pneumonia versus atelectasis. Osvaldo elate clinically. Reviewed, dictated and finalized at location . Impression: Complete consolidation of the right lower lobe could reflect lobar pneumonia ve rsus atelectasis. Correlate clinically.
--- NOTE | ~2025-05-30 | CT_ITS ---
Non-contrast Head CT History: Altered mental status Technique: Axial non-contrast imaging of the brain was performed. Dose reduction technique was used on this scan by utilizing automated exposure control and iterative reconstruction technique. The dose -length product (DLP) was 681.00 mGy-cm. Findings: There is no evidence of intracranial hemorrhage, mass lesion, or acute infarct. Brain par enchyma appears normal. The ventricles and subarachnoid spaces are normal in size. The calvarium ap pears normal. There is right maxillary and bilateral ethmoid sinus disease. There is bilateral fronta l sinus disease. The remaining visualized paranasal sinuses and mastoid air cells are clear. Impression: No intracranial abnormality seen. Sinus disease, as above. Reviewed, dictated and finalized at location . Impression: No intracranial abnormality seen. Sinus disease, as above.
--- NOTE | ~2025-05-30 | XR_ITS ---
XR abdomen gastric tube rechec INDICATION: Evaluate NG tube position. TECHNIQUE: Limited KUB perform for evaluating NG tube . COMPARISON: 10/19/2024 FINDINGS: NG tube tip in the stomach. Visualized bowel gas pattern is unremarkable.There are cholecy stectomy clips. Small right pleural effusion. IMPRESSION: 1: NG tube tip in the stomach. Reviewed, dictated and finalized at location B.
--- NOTE | ~2025-05-30 | US_ITS ---
US renal BI Ordering provider: Mona Partida MD History: . Acute kidney injury rule out hydronephrosis . Comparison: None. Technique: Ultrasound bilateral kidneys. Findings: RIGHT KIDNEY: Measures 8.3x 4.8x 5 cm in length which is normal in size. No renal cysts. No renal mas s or visualized echogenic stones. Otherwise, normal echotexture and contour. No hydronephrosis. Sharon l renal cortical thickness. LEFT KIDNEY: Measures 8.3x 4.6x 4.6 cm in length which is normal in size. No renal cysts. No renal ma ss or visualized echogenic stones. Otherwise, normal echotexture and contour. No hydronephrosis. Norm al renal cortical thickness. BLADDER: The wall measures 0.12 cm. Reed catheter is seen in the bladder. Left adrenal was not possible seen. IMPRESSION: No abnormality seen in the kidneys. Reed's catheter seen in the urinary bladder. Reviewed, dictated and finalized at location A.
--- NOTE | ~2025-05-30 | XR_ITS ---
XR chest 1V portable Ordering provider: Mona Partida MD History: 60 years Female with . post brochoscopy . Comparison: None. FINDINGS: MEDIASTINUM: The cardiac silhouette is not enlarged. Left PICC line with the tip overlying superior v faiza cava. Endotracheal tube with the tip above the zhou by about 3.5 cm. Nasogastric tube is extend ing to the stomach. LUNGS: No effusions or pneumothorax. Opacification the right lung base suggestive of atelectasis vers us pneumonia. OTHER: No free air under the diaphragm. Degenerative changes of the spine. IMPRESSION: Right basilar atelectasis versus pneumonia. Reviewed, dictated and finalized at location A.
--- NOTE | 2025-05-30 23:22 | ECG_ITS ---
Test Date: 2025-05-30 23:58:24 Measurements Intervals [place] Rate: 117 P: 58 KS: 148 QRS: -87 QRSD: 127 T: 40 QT: 293 QTc: 409 Interpretive Statements SINUS TACHYCARDIA WITH OCCASIONAL SUPRAVENTRICULAR PREMATURE COMPLEXES LEFT AXIS DEVIATION [QRS AXIS < -30] RIGHT BUNDLE BRANCH BLOCK [120+ ms QRS DURATION, UPRIGHT V1, 40+ ms S IN I/aVL/V4/V5/V6] WARNING: DATA QUALITY MAY AFFECT INTERPRETATION Compared to ECG 02/26/2025 21:50:17 NO SIGNIFICANT CHANGES Electronically Signed On 05-31-2025 12:44:49 CDT by Demetrius Claros M.D.
[2025-05-30] MEDS: NOREPINEPHRINE 8 MG/D5W 250 ML 8 MG/250 ML BAG 18.75 MG IV CONT (23:28)
[2025-05-30] MEDS: LACTATED RINGERS 1,000 ML 999 ML (23:28)
[2025-05-30] MEDS: FENTANYL 2,500MCG/NS250ML(*CRX 2,500 MCG/250 ML BAG 6 MCG (23:50)
[2025-05-31] VITALS (97 sets, daily range): BP systolic 58–142; BP diastolic 39–123; PULSE 57–123; RESP 18–24; TEMP 36.3–38.4; O2SAT 92–100; BMI 16.9
[2025-05-31] MEDS: VASOPRESSIN INJ 100 UNITS in DEXTROSE 5% 95 ML IV CONT
--- NOTE | 2025-05-31 | CONSULT_PTH ---
PATIENT: Amanda Cabrera LOC: [id number] U#:[id number] AGE/SX: 60/F ROOM: 260 RE05/31/[address]: Gilberto Herbert MD : 1965 BED: 01 DIS: 06/07/2025 SPEC #: [id number] RECD: 05/31/25 07:17 STATUS: EL REQ #: [id number] NAA: 05/31/25 00:[address]: Francisca Owen DEPT: [facility] Consult RECD BY: Micaela Sheth MLT ENTERED: 05/31/25 07:18 SP TYPE: Consult OT DR: Nabil Randall, MD Mona Xavier MD Michael J. Walter, MD Tissues: A - Peripheral Smear Procedures: Hematology Consult
[2025-05-31 00:13] LABS: INR 1.5; Prothrombin Time 18.5 Seconds (11.1-14.7)
[2025-05-31 00:14] LABS: Partial Thromboplastin Time 28.9 Seconds (22.3-36.8)
[2025-05-31 00:16] LABS: Fractional Inspired Oxygen 50 %; HCO3 VBG 29.6 mEq/l (24.0-30.0); PCO2 VBG 48.7 mmHg (42.0-48.0); PO2 VBG 71.1 mmHg (35.0-45.0)
[2025-05-31] MEDS: ACETAMINOPHEN 650 MG SUPPOSITORY (00:20)
[2025-05-31 00:21] LABS: Arterial Blood Gas Tidal Volume 350 ml; Arterial Blood Gas Ventilator rate 20 /MIN; pH VBG 7.402 (7.300-7.400)
[2025-05-31 00:23] LABS: Hematocrit 28.2 % (37.0-47.0); Hemoglobin 8.0 g/dL (12.0-15.0); Mean Corpuscular HGB Conc 28.4 g/dl (32-36); Mean Corpuscular Hemoglobin 30.2 pg (26-34); Mean Corpuscular Volume 106.4 fl (80-100); Platelet Count Result 372 k/mm3 (150-375); Red Blood Count 2.65 M/mm3 (4.2-5.4); White Blood Count 25.1 K/mm3 (4.5-10.0)
--- NOTE | 2025-05-31 00:29 | ED_ITS ---
HPI - Altered Mental Status General Chief Complaint: Altered Mental Status Stated Complaint: Unresponsive/low O2 sats Time Seen by Provider: 05/30/25 23:05 History of Present Illness HPI narrative: 60-year-old female with a past medical history including intellectual disability, schizoaffective disorder, dysphagia with a PEG tube. She presents to the emergency department in respiratory extremis with hypoxia 50% on supplemental oxygen, hypotension in the 80s, tachycardic in the 120s to 140s, tachypneic in the 40s and febrile. She was doing fine this afternoon according nursing staff and then the gave her nightly medications with pudding and check on her several hours later where she was unresponsive and febrile, hypoxic. They called EMS for assistance. Patient is altered and not able to provide collateral formation, coughing frequent poor breath sounds bilaterally raising suspicion for aspiration event. Patient brought back to room 2 for medical resuscitation emergency. Related Data Home Medications ?Medication ?Instructions ?Recorded ?Confirmed ?Last Taken ?Type bupropion HCl 150 mg 24 hr tablet, 150 mg PO QAM 09/27/24 05/31/25 Unknown History extended release (Wellbutrin XL) lisinopril 10 mg tablet 10 mg PO DAILY 09/27/24 05/31/25 Unknown History valproic acid 250 mg capsule 750 mg PO HS 09/27/24 05/31/25 Unknown History famotidine 20 mg tablet 20 mg feeding tube DAILY 05/31/25 05/31/25 Unknown History furosemide 40 mg tablet (Lasix) 40 mg PO DAILY 05/31/25 05/31/25 Unknown History guaifenesin 1,200 mg tablet, 1,200 mg PO BID 05/31/25 05/31/25 Unknown History extended release 12 hr (Mucinex) ipratropium 0.5 mg-albuterol 3 mg 3 ml inhalation Q6H PRN shortness 05/31/25 05/31/25 Unknown History (2.5 mg base)/3 mL nebulization of breath or wheezing soln loratadine 10 mg capsule (Allergy 10 mg PO DAILY 05/31/25 05/31/25 Unknown History Relief (loratadine)) Allergies Allergy/AdvReac Type Severity Reaction Status Date / Time No Known Allergies Allergy Verified 09/27/24 22:08 Review of Systems 2 Review of Systems: ROS unobtainable: Yes unobtainable due to medical condition and unobtainable due to mental status FOR[facility]LY [facility] Past Medical History Medical History Intellectual disability Epilepsy Major depressive disorder Anxiety disorder Schizoaffective disorder Surgical History Surgical History Surgical history unknown Family History Family History Other Unknown family medical history Social History Social History Social History: Code status: Full code (per retirement documentation) Smoking status: Unknown if ever smoked Alcohol intake: unknown Substance use: unknown Spiritual care concerns: No Exam 2 Narrative: GENERAL: Ill-appearing, in respiratory distress and extremis HEAD: Cachectic otherwise normocephalic EYES: Pupils constricted bilaterally ENT: Nares clear, no rhinorrhea or epistaxis. Mucous membranes dry. Poor dentition, vomitus evident in the mouth NECK: Supple. CHEST: Coarse bilateral breath sounds left worse than right, respiratory extremis with tachypnea and hypoxemia HEART: Rapid rate and regular rhythm. No murmur heard. Warm extremities with good pulses in the femoral and radial pulses ABDOMEN: [Soft, nondistended], [nontender], PEG tube in place EXTREMITIES: No extremity edema SKIN: Warm dry extremities without any appreciable rashes NEURO: Unable to fully assess secondary to patient's mental status, GCS 6 for withdrawing from pain, no verbal or eye response PSYCH: Unable to assess Course Vital Signs Vital signs: Vital Signs Temperature 38.1 C H 05/30/25 23:08 Pulse Rate 143 H 05/30/25 23:08 Respiratory Rate 28 H 05/30/25 23:08 Blood Pressure 81/50 L 05/30/25 23:08 Pulse Oximetry 73 L 05/30/25 23:08 Oxygen Delivery Non-Rebreather Mask 05/30/25 23:08 Oxygen Flow Rate 15 05/30/25 23:08 Temperature 38.1 C H 05/31/25 04:53 Pulse Rate 70 05/31/25 05:00 Respiratory Rate 21 H 05/31/25 05:00 Blood Pressure 129/73 05/31/25 05:00 Pulse Oximetry 97 05/31/25 04:57 Oxygen Delivery Mechanical Ventilation 05/31/25 04:57 Oxygen Flow Rate 15 05/30/25 23:22 Fraction of Inspired Oxygen 80 05/31/25 04:57 Procedures Central Line Placement Left SC: Central Line Date: 05/30/25 Central Line Time: 23:10 Performed Emergently - Given emergent patient condition, temporal constraints may have precluded informed consent.: Yes Time Out Performed: Yes Patient Placed on Monitor/Pulse Ox: Yes Max. Sterile Barrier Technique: hand hygiene Central Line Prep: 2% chlorhexidine scrub Emergently Placed, Full Sterile: prep not done Technique: seldinger Local Anesthetic: none Ultrasound Used for Placement: No Central Line Lumen Inserted: triple Post Procedure: sutured in place, good blood return, all ports aspirated, flushed, capped and sterile dressing applied Post Procedure X-Ray: tip of catheter in good position and no pneumothorax seen Patient Tolerated Procedure: well and no complications Complications: none Intubation Intubation #1: Intubation Date: 05/30/25 Intubation Time: 23:25 Time out performed: Yes sedative: Etomidate Mg Given: 10 paralytic: Rocuronium Mg Given: 70 Laryngoscope: fiber optic video scope Tube Size (cm): 7.5 Method of Intubation: orotracheal Number of Attempts: 1 Tube Secured Depth (cm): 23 Tube Secured Location: lips Tube Placement Confirmation: visualized tube passing through cords, equal breath sounds bilaterally, no breath sounds over epigastrium and confirmation by capnometry Patient Tolerated Procedure: well and no complications Intubation Complications: none MDM - Altered Mental Status MDM Narrative Medical decision making narrative: 60-year-old female with a past medical history including intellectual disability, schizoaffective disorder, dysphagia with a PEG tube. She presents to the emergency department in respiratory extremis with hypoxia 50% on supplemental oxygen, hypotension in the 80s, tachycardic in the 120s to 140s, tachypneic in the 40s and febrile. She was doing fine this afternoon according nursing staff and then the gave her nightly medications with pudding and check on her several hours later where she was unresponsive and febrile, hypoxic. They called EMS for assistance. Patient is altered and not able to provide collateral formation, coughing frequent poor breath sounds bilaterally raising suspicion for aspiration event. Patient brought back to room 2 for medical resuscitation emergency. Patient has a GCS of 6 with withdrawing to pain, no ocular response or verbal responses. She is hypotensive in the 80s systolic, tachycardic in the 120-1 40s, tachypneic, hypoxic at 73% on 15 L non-rebreather. Respiratory therapy called to bedside for BVM ventilations with improvement to 99% with PEEP of 8. Patient is hypotensive and tachycardic requiring significant resuscitation before intubation efforts but we will after pursue intubation for respiratory status and potential aspiration given her vomitus in the mouth and acute decompensation after being fed p.o. per nursing staff at facility. She is in shock likely septic and less likely hemorrhagic or obstructive. Single IV was established given patient's difficult vascular access and she was given greater than 30 cc/kg bolus of LR while central access was obtained under emergent conditions for vasopressors. She was started on norepinephrine with increasingly escalated doses up to the maximum 30 per hour with additional vasopressin added on. Blood pressures started to respond transiently in the low 100s and then improved and stabilized in the 120s. Heart rate still in the 120s. Patient is now adequately resuscitated for intubation which was largely uneventful. She was given 10 mg of etomidate, 70 mg of rocuronium, suction was used to remove vomitus in the airway with clear evidence of aspiration via laryngoscopy. 7.5 endotracheal tube secured at 23 cm at the lip. Chest x-rays confirm endotracheal placement and subclavian catheter placement. Initial x-ray obtained prior to procedure shows right-sided pneumonia with possible pleural effusion additional likely the source of her respiratory status and shock. Patient has stabilized with blood pressures in the 120s on 2 vasopressors at this time, vent settings of 350 tidal volume, 20 breaths per minute, peep of 8, FiO2 80%, VBG obtained, lactic acid, blood cultures drawn, septic bundle initiated with additional fluids and maintenance fluids started given her pressor requirements. CT of the head and CT chest abdomen pelvis with urinalysis and straight catheterization obtained. She is febrile at 100.9 and rectal Tylenol provided. Patient started on broad-spectrum coverage for pneumonia and possible aspiration with sepsis, vancomycin, cefepime and Flagyl ordered. Patient's fever was elevated at 38.8 rectally and she received rectal Tylenol with mild improvement. Blood pressure has remained stable on pressors at this time and heart rate has come down to low 100s. Laboratory studies show significant leukocytosis of 25,000 as well as dehydration with a sodium 174, elevated chloride, elevated BUN and creatinine likely prerenal in nature verses sepsis induced hypoperfusion. Unclear exact timeline of developing the severe hypernatremia, but possible for acute or chronic hypernatremia leading to an acute neurological event such as seizure and subsequent aspiration and sepsis, however this is speculative and etiology remains unclear at this juncture. Patient has already received approximately 3 L of fluid resuscitation for persistently low blood pressures and low diastolics requiring vasopressors and she has responded, we will recheck a BMP followed by initiation of hypotonic fluids depending on her new sodium to prevent over-correction too rapidly. She has a free water deficit of over 6.5 L consistent with prerenal azotemia and her urine studies that we ordered shows a FENA of 0.5% consistent with prerenal etiology and dehydration/sepsis induced hypoperfusion. CT of the head does not show any obvious intraparenchymal pathology or hemorrhage, IV Caldalor ordered for her fever and Tylenol scheduled. Awaiting radiology read of CT scans for admission to the ICU or transfer depending on etiology. Patient CT scans were reviewed and she does have what appears to be extensive aspiration her right lung consistent with her exam findings and clinical picture. CT scan read by radiology shows significant extensive aspiration in the right distal mainstem and right lower/middle lobes as well as extensive bronchial fluid opacification with aspiration with possible underlying pneumonia. No abdominal or pelvic findings that are of concern. No bowel obstruction or free fluid/air. CT scan of the head shows no intracranial acute pathology but she does have incidental mass in the sella consistent with incidental pituitary lesion, unlikely contributing to patient's picture. Discussed the case with Dr. Partida from the intensive care unit and we went over patient's clinical exam, aspiration event, severe hypernatremia with plabs for correction with fluid resuscitation given hemodynamic instability and now hypotonic maintenance fluids at this time. Scheduled labs ordered q.4 hours and she was accepted to the ICU. Patient is now improved and stable but requiring high doses of norepinephrine and baseline vasopressin. Remains sedated on fentanyl at approximately 1.5 mcg/kg/hour. Awaiting discussion with the hospitalist for admission. Discussed the case with the hospitalist Dr. Owen and patient was accepted to the ICU at this time and transported without any further issue. Medical Records Attestation: I reviewed the patient's medical records. Lab Data Attestation: I reviewed the patient's lab results. 05/30/25 23:45 05/31/25 02:08 Labs: Lab Results 05/30/25 05/31/25 05/31/25 Range/Units 23:45 00:12 00:35 WBC 25.1 H (4.5-10.0) K/mm3 RBC 2.65 L (4.2-5.4) M/mm3 Hgb 8.0 L (12.0-15.0) g/dL Hct 28.2 L (37.0-47.0) % MCV 106.4 H (80-100) fl MCH 30.2 (26-34) pg MCHC 28.4 L (32-36) g/dl RDW 15.9 H (11.5-14.5) % Plt Count 372 D (150-375) k/mm3 MPV 12.0 H (7.4-10.4) fl Immature Gran % (Auto) Not Reportable Neut % (Auto) Not Reportable Lymph % (Auto) Not Reportable Johnston % (Auto) Not Reportable Eos % (Auto) Not Reportable Baso % (Auto) Not Reportable Lymph # (Auto) Not Reportable Johnston # (Auto) Not Reportable Eos # (Auto) Not Reportable Baso # (Auto) Not Reportable Abs Immat Gran (auto) Not Reportable Absolute Neuts (auto) Not Reportable Absolute Nucleated RBC Not Reportable Total Counted 100 Neutrophils % (Manual) 83 H (46-73) % Band Neutrophils % 9 H (0-6) % Lymphocytes % (Manual) 5 L (18-44) % Monocytes % (Manual) 3 (3-9) % Nucleated RBC % Not Reportable Abs Neuts (Manual) 23.09 H (1.3-6.7) K/mm3 Abs Lymphs (Manual) 1.25 (1.1-4.5) K/mm3 Abs Monocytes (Manual) 0.75 (0.1-0.90) K/mm3 Platelet Estimate Adequate (Adequate) Schistocytes None seen PT 18.5 H (11.1-14.7) Seconds INR 1.5 APTT 28.9 (22.3-36.8) Seconds Minute Volume Not Reportable Vent Mode Cmv Tidal Volume 350 ml PEEP 8 cmH2O Peak Inspir Pressure Not Reportable Pressure Support Not Reportable Sodium 174 H* (137-145) mmol/L Potassium 3.9 (3.4-5.0) mmol/L Chloride 133 H (98-107) mmol/L Carbon Dioxide 27 (22-30) mmol/L Anion Gap 14 H (4-12) mmol/L BUN 83 H D (7-17) mg/dL Creatinine 2.82 H (0.7-1.0) mg/dL Estim Creat Clear Calc Not Reportable Estimated GFR 17 L (59 - ) Glucose 126 H (65-110) mg/dL Serum Osmolality Pending Lactic Acid 1.8 (0.7-2.0) mmol/L Calcium 8.0 L (8.4-10.2) mg/dL Total Bilirubin 0.3 (0.2-1.3) mg/dL AST 62 H (14-36) U/L ALT 25 (6-35) U/L Alkaline Phosphatase 98 (38-126) U/L C-Reactive Protein 15.9 H (<1.0) mg/dL Total Protein 5.5 L (6.3-8.2) g/dL Albumin 2.6 L (3.5-5.1) g/dL Urine Color Yellow (Yellow) Urine Appearance Clear (Clear) Urine pH 5.0 (5.0-9.0) Ur Specific [place] 1.023 (1.001-1.035) Urine Protein Trace (Negative) mg/dL Urine Glucose (UA) Negative (Negative) mg/dL Urine Ketones Trace H (Negative) mg/dL Ur Blood (Man) 2+ H (Negative) Urine Nitrate Negative (Negative) Urine Bilirubin Negative (Negative) Urine Urobilinogen 1.0 (<2.0) mg/dL Add Ur Microanalysis Reviewed Leukocyte Esterase Rfl Trace H (Negative) ANGIE/UL Urine RBC 21-50 H (0-2) /hpf Urine WBC 0-5 (0-3) /hpf Ur Squamous Epith Cells Moderate (Few) /hpf Urine Bacteria Rare /hpf Urine Casts >20 Hyaline Casts Present (None) /lpf Urine Osmolality Pending U Random Total Protein 15 mg/dL Ur Random Sodium 38 meq/L Urine Creatinine 134.2 mg/dL Nasal MRSA (PCR) (NOT DETECTE) 05/31/25 05/31/25 Range/Units 01:17 02:08 WBC (4.5-10.0) K/mm3 RBC (4.2-5.4) M/mm3 Hgb (12.0-15.0) g/dL Hct (37.0-47.0) % MCV (80-100) fl MCH (26-34) pg MCHC (32-36) g/dl RDW (11.5-14.5) % Plt Count (150-375) k/mm3 MPV (7.4-10.4) fl Immature Gran % (Auto) Neut % (Auto) Lymph % (Auto) Johnston % (Auto) Eos % (Auto) Baso % (Auto) Lymph # (Auto) Johnston # (Auto) Eos # (Auto) Baso # (Auto) Abs Immat Gran (auto) Absolute Neuts (auto) Absolute Nucleated RBC Total Counted Neutrophils % (Manual) (46-73) % Band Neutrophils % (0-6) % Lymphocytes % (Manual) (18-44) % Monocytes % (Manual) (3-9) % Nucleated RBC % Abs Neuts (Manual) (1.3-6.7) K/mm3 Abs Lymphs (Manual) (1.1-4.5) K/mm3 Abs Monocytes (Manual) (0.1-0.90) K/mm3 Platelet Estimate (Adequate) Schistocytes PT (11.1-14.7) Seconds INR APTT (22.3-36.8) Seconds Minute Volume Vent Mode Tidal Volume ml PEEP cmH2O Peak Inspir Pressure Pressure Support Sodium 169 H* (137-145) mmol/L Potassium 3.8 (3.4-5.0) mmol/L Chloride 131 H (98-107) mmol/L Carbon Dioxide 27 (22-30) mmol/L Anion Gap 11 (4-12) mmol/L BUN 83 H (7-17) mg/dL Creatinine 2.94 H (0.7-1.0) mg/dL Estim Creat Clear Calc 13 Estimated GFR 16 L (59 - ) Glucose 155 H (65-110) mg/dL Serum Osmolality Lactic Acid (0.7-2.0) mmol/L Calcium 7.9 L (8.4-10.2) mg/dL Total Bilirubin (0.2-1.3) mg/dL AST (14-36) U/L ALT (6-35) U/L Alkaline Phosphatase (38-126) U/L C-Reactive Protein (<1.0) mg/dL Total Protein (6.3-8.2) g/dL Albumin (3.5-5.1) g/dL Urine Color (Yellow) Urine Appearance (Clear) Urine pH (5.0-9.0) Ur Specific [place] (1.001-1.035) Urine Protein (Negative) mg/dL Urine Glucose (UA) (Negative) mg/dL Urine Ketones (Negative) mg/dL Ur Blood (Man) (Negative) Urine Nitrate (Negative) Urine Bilirubin (Negative) Urine Urobilinogen (<2.0) mg/dL Add Ur Microanalysis Leukocyte Esterase Rfl (Negative) ANGIE/UL Urine RBC (0-2) /hpf Urine WBC (0-3) /hpf Ur Squamous Epith Cells (Few) /hpf Urine Bacteria /hpf Urine Casts Hyaline Casts (None) /lpf Urine Osmolality U Random Total Protein mg/dL Ur Random Sodium meq/L Urine Creatinine mg/dL Nasal MRSA (PCR) Not detected (NOT DETECTE) ABG Data ABG results: 05/31/25 00:12 VBG pH 7.402 H* VBG pCO2 48.7 H VBG pO2 71.1 H VBG HCO3 29.6 O2 Delivery Device Ventilator O2 Liters/Min Not Reportable Vent Rate 20 FiO2 50 Attestation: I personally reviewed and interpreted this ABG as follows: Interpretation: Normal pH, no acidosis Imaging Data Attestation: I personally reviewed and interpreted this imaging study as follows: My impression: No acute intracranial hemorrhage, extensive aspiration and possible pneumonia in the right lower lobes, endotracheal tube and NG tube in place, PEG tube in place, no signs of bowel obstruction. Critical Care Time Critical Care Time Critical Care Time: Yes Total Critical Care Time: 120 (Critical care time is exclusive of the separately billable procedures as detailed above.) Discharge Plan Discharge Clinical Impression: Septic shock, Aspiration pneumonia, Aspiration into main bronchus, Acute hypoxemic respiratory failure, Acute hypernatremia, Dehydration with hypernatremia, Acute renal failure, Pituitary abnormality Patient Disposition: Still a Patient Condition: Stable
[2025-05-31 00:36] LABS: Band Neutrophils Percent 9 % (0-6); Lymphocytes Absolute Manual 1.25 K/mm3 (1.1-4.5); Lymphocytes Percent Manual 5 % (18-44); Monocytes Absolute Manual 0.75 K/mm3 (0.1-0.90); Monocytes Percent Manual 3 % (3-9); Neutrophils Absolute Manual 23.09 K/mm3 (1.3-6.7); Neutrophils Percent Manual 83 % (46-73); Total Cells Counted 100
[2025-05-31 00:37] LABS: Schistocytes None Seen
--- NOTE | 2025-05-31 00:41 | PC.NURSE ---
Received critical lab of high sodium. Concern for contamination. Will redraw tubes and sent new set to lab.
--- NOTE | 2025-05-31 00:56 | PC.NURSE ---
2315 : HR 143, O2 73% on 15L NRB, BP 81/50 2320 : triple lumen central line placed in L subclavian by EDP, 7FR 16CM 2328 : Levophed started at 10mcg per vorb EDP Torossian 1L LR to gravity per vorb EDP Torossian 2329 : Levophed titrated to 15mcg per VORB EDP Torossian 2330: HR 133, R 23, 94% with manual bagging, BP 101/81 2334 : HR 126, 96% with manual bagging, R 24, BP 88/72 2 amps Bicarb pushed via IV 2337: HR 130, 93% with manual bagging, R 24, BP 87/56 2338 :Levophed titrated to 20mcg per vorb EDP 2343 : 1L LR started at 125ml/hr per vorb EDP Levophed titrated to 30mcg per vorb EDP HR 129, 90% with manual bagging, R 29, BP 102/47 2344 : 10mg etomidate given via IV push per vorb EDP 70mg rocuronium given via IV push er vorb EDP 2345 : 7.5 ET Tube placed 23 @ lip confirmed by xray and ausculation of bilateral breath sounds HR 130, O2 100%, R 17, BP 117/64 2350 : fentanyl started at 60mcg per vorb EDP 0000: Vasopressin @ 0.02 units/hr per vorb EDP 0010 : 16fr temp roldan placed with 100mL urine output 0015 : HR 121, R 19, O2 99%, BP 126/77, T 100.5
[2025-05-31 01:02] LABS: Alanine Aminotransferase 25 U/L (6-35); Albumin Level 2.6 g/dL (3.5-5.1); Alkaline Phosphatase 98 U/L (38-126); Anion Gap 14 mmol/L (4-12); Aspartate Amino Transferase 62 U/L (14-36); Bilirubin,Total 0.3 mg/dL (0.2-1.3); Blood Urea Nitrogen 83 mg/dL (7-17); Calcium 8.0 mg/dL (8.4-10.2); Carbon Dioxide 27 mmol/L (22-30); Chloride 133 mmol/L (98-107); Estimated Glomerular Filt Rate 17; Glucose 126 mg/dL (65-110); Potassium 3.9 mmol/L (3.4-5.0); Total Protein 5.5 g/dL (6.3-8.2)
[2025-05-31 01:03] LABS: Add Urine Microscopic? YES; Appearance Urine Clear (Clear); Glucose Urine UA Negative (Negative); Leukocyte Esterase Ur Trace LEU/UL (Negative); Need Manual Microscopic Reviewed; Nitrate Urine Negative (Negative); Non Pathogenic Casts >20; Specific Grav Ur 1.023 (1.001-1.035)
[2025-05-31 01:05] LABS: Sodium 174 mmol/L (137-145)
[2025-05-31 01:13] LABS: CRP 15.9 mg/dL (<1.0)
--- NOTE | 2025-05-31 01:13 | PC.NURSE ---
Patient placed in bilateral wrist restraints @ 2350
--- NOTE | 2025-05-31 01:24 | PC.NURSE ---
patient taken to ct scan @ [id number]
--- NOTE | 2025-05-31 01:45 | PC.NURSE ---
patient returned from ct scan
[2025-05-31 01:53] LABS: Total Protein Urine Random 15 mg/dL
[2025-05-31 02:33] LABS: MRSA (PCR) NOT DETECTED (NOT DETECTE)
[2025-05-31] MEDS: IBUPROFEN IV 400 MG in SODIUM CHLORIDE 0.9% IV 100 ML 208 MG IVPB (02:36)
[2025-05-31 02:39] LABS: Anion Gap 11 mmol/L (4-12); Blood Urea Nitrogen 83 mg/dL (7-17); Calcium 7.9 mg/dL (8.4-10.2); Carbon Dioxide 27 mmol/L (22-30); Chloride 131 mmol/L (98-107); Estimated CRCL calculation 13 ml/min; Estimated Glomerular Filt Rate 16; Glucose 155 mg/dL (65-110); Potassium 3.8 mmol/L (3.4-5.0); Sodium 169 mmol/L (137-145)
[2025-05-31] MEDS: CEFEPIME 2 GM in SODIUM CHLORIDE 0.9% IV 50 ML 100 ML IVPB (03:10)
[2025-05-31] MEDS: FENTANYL 2,500MCG/NS250ML(*CRX 2,500 MCG/250 ML BAG 6 MCG IV CONT (03:25)
[2025-05-31] MEDS: metroNIDAZOLE 500 MG/ISO 100ML 500 MG/100 ML BAG 100 MG IVPB ×3 (03:38→21:16)
[2025-05-31] MEDS: SODIUM CHLORIDE 0.45% 1,000 ML 75 ML IV CONT (03:39)
[2025-05-31] MEDS: NOREPINEPHRINE 8 MG/D5W 250 ML 8 MG/250 ML BAG 56.25 MG IV CONT (04:24)
--- NOTE | 2025-05-31 05:02 | PM.IMHP ---
H&P: HPI History of Present Illness Date/Time: 05/31/25 05:02 Chief Complaint: Unresponsive Narrative: This is a 60-year-old female with a history of intellectual disability, schizoaffective disorder, dysphagia with the PEG tube, depression and anxiety, seizure disorder who presents from her assisted facility as she was found unresponsive, hypoxic, and with a fever. Hours before she was doing fine and she was given her nightly medications with pudding. Upon presentation to [facility] on 05/30/2025 she was found to be hypotensive tachycardia tachypneic. She was unresponsive coughing frequently. On 15 L non-rebreather was still hypoxic with SpO2 73%. BVM ventilation initiated. She was then intubated for airway protection and respiratory failure. Central line placed left subclavian, 30 cc/kg bolus developed are administered. Norepinephrine started titrated all the way up to 50 mcg. Received 10 mg of etomidate, 70 mg of rocuronium. ER physician noted vomitus in the airway during intubation. Mechanical ventilator set at 350 mL tidal volume, 20 RR, peep of 8, FiO2 of 80%. Sedated with fentanyl. At this time she was saturating adequately. Noted fever 100.9, rectal Tylenol administered. Vancomycin cefepime and Flagyl administered. WBC 25.1, hemoglobin 8. Baseline between 10 and 11. Platelet 372. 9% band neutrophils. INR 1.2. ABG: PH 7.402, pCO2 48.7, PO2 71, bicarb 29.6 on FiO2 50% via mechanical ventilator. Baseline sodium 136-144. On arrival sodium 174, after lactated Ringer bolus improved to 169. Placed on half-normal saline at 75 cc/hour. Potassium 3.8, chloride 131, bicarb 27, anion gap 11, BUN 83, serum creatinine 2.94, glucose 155, serum osmolality pending, calcium 7.9, lactic acid 1.8, AST 62, ALT 25, alkaline phosphatase 98, CRP 15.9, albumin 2.6, urinalysis with trace leukocyte esterase, 21-50 RBC. MRSA nares not detected. chest x-ray one view demonstrating patchy opacities in right mid lung and right lower lung zones CT abdomen pelvis with contrast demonstrating a PEG tube with balloon inflated in the proximal duodenum. CT brain without contrast without acute findings. Incidentally, a rounded soft tissue mass in the sella measuring 13 x 14 x 11 mm follow-up with pituitary MRI is advised if this is new. Review of Systems Review of Systems: ROS unobtainable: Yes unobtainable due to endotracheal tube, unobtainable due to medical condition and unobtainable due to mental status PMFSH Past Medical History Medical History Intellectual disability Epilepsy Major depressive disorder Anxiety disorder Schizoaffective disorder Surgical History Surgical History Surgical history unknown Family History Family History Other Unknown family medical history Social History Social History Social History: Code status: Full code (per retirement documentation) Smoking status: Unknown if ever smoked Alcohol intake: unknown Substance use: unknown Spiritual care concerns: No Meds Home Medications and Allergies Home Medications ?Medication ?Instructions ?Recorded ?Confirmed ?Type bupropion HCl 150 mg 24 hr tablet, 150 mg PO QAM 09/27/24 05/31/25 History extended release (Wellbutrin XL) lisinopril 10 mg tablet 10 mg PO DAILY 09/27/24 05/31/25 History valproic acid 250 mg capsule 750 mg PO HS 09/27/24 05/31/25 History acetaminophen 325 mg tablet 650 mg (2 x 325 mg) feeding tube 10/25/24 05/31/25 Rx Q4H PRN pain or fever #10 tabs alprazolam 0.5 mg tablet (Xanax) 0.5 mg feeding tube TID #10 tabs 10/25/24 05/31/25 Rx aripiprazole 20 mg tablet 20 mg feeding tube DAILY #10 tabs 10/25/24 05/31/25 Rx famotidine 20 mg tablet 20 mg feeding tube DAILY 05/31/25 05/31/25 History furosemide 40 mg tablet (Lasix) 40 mg PO DAILY 05/31/25 05/31/25 History guaifenesin 1,200 mg tablet, 1,200 mg PO BID 05/31/25 05/31/25 History extended release 12 hr (Mucinex) ipratropium 0.5 mg-albuterol 3 mg 3 ml inhalation Q6H PRN shortness 05/31/25 05/31/25 History (2.5 mg base)/3 mL nebulization of breath or wheezing soln loratadine 10 mg capsule (Allergy 10 mg PO DAILY 05/31/25 05/31/25 History Relief (loratadine)) Allergies Allergy/AdvReac Type Severity Reaction Status Date / Time No Known Allergies Allergy Verified 09/27/24 22:08 Vital Signs Vital Signs - 24 hr 05/30/25 23:08 05/30/25 23:15 05/30/25 23:22 Temperature 100.5 F H Pulse Rate 143 H 139 H Respiratory Rate 28 H Blood Pressure 81/50 L Pulse Oximetry 73 L 73 L Oxygen Delivery Non-Rebreather Mask Non-Rebreather Mask Oxygen Flow Rate 15 15 Fraction of Inspired Oxygen 05/30/25 23:22 05/30/25 23:22 05/30/25 23:28 Temperature 101.8 F H Pulse Rate 143 H 130 H Respiratory Rate Blood Pressure 81/50 L 78/44 L Pulse Oximetry 73 L 73 L Oxygen Delivery Non-Rebreather Mask Oxygen Flow Rate 15 Fraction of Inspired Oxygen 05/30/25 23:29 05/30/25 23:38 05/30/25 23:38 Temperature Pulse Rate 130 H 130 H 128 H Respiratory Rate 26 H Blood Pressure 82/65 L 78/44 L 88/74 L Pulse Oximetry 93 Oxygen Delivery Oxygen Flow Rate Fraction of Inspired Oxygen 05/30/25 23:43 05/30/25 23:45 05/30/25 23:50 Temperature Pulse Rate 128 H 128 H 127 H Respiratory Rate 28 H 20 Blood Pressure 100/37 L 100/37 L Pulse Oximetry 88 L Oxygen Delivery Oxygen Flow Rate Fraction of Inspired Oxygen 05/30/25 23:50 05/31/25 00:00 05/31/25 00:00 Temperature Pulse Rate 127 H 123 H 123 H Respiratory Rate 20 20 Blood Pressure 117/64 120/62 120/62 Pulse Oximetry 98 100 Oxygen Delivery Oxygen Flow Rate Fraction of Inspired Oxygen 05/31/25 00:05 05/31/25 00:09 05/31/25 00:15 Temperature Pulse Rate 123 H 122 H 121 H Respiratory Rate 20 19 Blood Pressure 120/62 123/63 Pulse Oximetry 100 99 100 Oxygen Delivery Mechanical Ventilation Oxygen Flow Rate Fraction of Inspired Oxygen 05/31/25 00:20 05/31/25 00:30 05/31/25 00:35 Temperature 100.5 F H Pulse Rate 121 H 121 H 121 H Respiratory Rate 19 20 20 Blood Pressure 123/63 126/77 126/77 Pulse Oximetry 100 99 99 Oxygen Delivery Oxygen Flow Rate Fraction of Inspired Oxygen 05/31/25 00:45 05/31/25 00:50 05/31/25 01:50 Temperature 101.1 F H 101 F H 101 F H Pulse Rate 118 H 118 H 101 H Respiratory Rate 20 20 20 Blood Pressure 119/62 119/62 118/61 Pulse Oximetry 98 98 97 Oxygen Delivery Oxygen Flow Rate Fraction of Inspired Oxygen 05/31/25 01:55 05/31/25 02:00 05/31/25 02:15 Temperature 101.2 F H 101.0 F H Pulse Rate 106 H 102 H Respiratory Rate 20 21 H Blood Pressure 112/64 121/84 Pulse Oximetry 92 Oxygen Delivery Mechanical Ventilation Oxygen Flow Rate Fraction of Inspired Oxygen 60 05/31/25 02:36 05/31/25 02:40 05/31/25 02:50 Temperature 100.9 F H 100.8 F H 100.7 F H Pulse Rate 90 96 Respiratory Rate 22 H 18 Blood Pressure 121/73 120/58 L Pulse Oximetry 96 97 Oxygen Delivery Oxygen Flow Rate Fraction of Inspired Oxygen 05/31/25 03:25 05/31/25 03:48 05/31/25 04:22 Temperature 100.7 F H Pulse Rate 80 89 67 Respiratory Rate 20 22 H Blood Pressure 122/59 L 111/47 L Pulse Oximetry 96 Oxygen Delivery Oxygen Flow Rate Fraction of Inspired Oxygen 05/31/25 04:24 05/31/25 04:57 Temperature Pulse Rate 67 81 Respiratory Rate Blood Pressure 111/47 L Pulse Oximetry 97 Oxygen Delivery Mechanical Ventilation Oxygen Flow Rate Fraction of Inspired Oxygen 80 Exam Const: Other: Intubated and sedated HENMT: Other: ETT/OG Eyes: Other: Scleral edema, pupils equal 4 mm bilaterally Neck: Neck: supple Resp: Other: Mechanical breath sounds Cardio: Rate: regular rate Rhythm: regular rhythm Heart sounds: no gallops, no murmurs and no rubs GI: Inspection: non-distended GI Palp: Yes Soft to palpation : General: Yes bladder normal to palpation Urinary Catheter: Urinary Catheter: patent and draining and urine clear H&P: Results Labs Labs: Short CBC 05/30/25 Range/Units 23:45 WBC 25.1 H (4.5-10.0) K/mm3 Hgb 8.0 L (12.0-15.0) g/dL Hct 28.2 L (37.0-47.0) % Plt Count 372 D (150-375) k/mm3 BMP 05/31/25 05/31/25 00:35 02:08 Sodium 174 H* 169 H* Potassium 3.9 3.8 Chloride 133 H 131 H Carbon Dioxide 27 27 BUN 83 H D 83 H Creatinine 2.82 H 2.94 H Glucose 126 H 155 H Calcium 8.0 L 7.9 L Liver Function 05/31/25 Range/Units 00:35 Total Bilirubin 0.3 (0.2-1.3) mg/dL AST 62 H (14-36) U/L ALT 25 (6-35) U/L Alkaline Phosphatase 98 (38-126) U/L Albumin 2.6 L (3.5-5.1) g/dL Urine 05/31/25 Range/Units 00:12 Urine Color Yellow (Yellow) Urine Appearance Clear (Clear) Urine pH 5.0 (5.0-9.0) Ur Specific [place] 1.023 (1.001-1.035) Urine Protein Trace (Negative) mg/dL Urine Glucose (UA) Negative (Negative) mg/dL Assessment and Plan Assessment and plan (1) Acute renal failure: Code(s): N17.9 - Acute kidney failure, unspecified Status: Acute (2) Acute hypernatremia: Code(s): E87.0 - Hyperosmolality and hypernatremia Status: Acute (3) Septic shock: Code(s): A41.9 - Sepsis, unspecified organism; R65.21 - Severe sepsis with septic shock Status: Acute (4) Hypoxia: Code(s): R09.02 - Hypoxemia Status: Acute (5) Acute hypoxic respiratory failure: Code(s): J96.01 - Acute respiratory failure with hypoxia Status: Acute (6) Aspiration pneumonia: Code(s): J69.0 - Pneumonitis due to inhalation of food and vomit Status: Acute Plan This is a 60-year-old female with a history of intellectual disability, schizoaffective disorder, dysphagia with the PEG tube, depression and anxiety, seizure disorder who presents from her assisted facility as she was found unresponsive, hypoxic, and with a fever. Hours before she was doing fine and she was given her nightly medications with pudding. Upon presentation to [facility] on 05/30/2025 she was found to be hypotensive tachycardia tachypneic. She was unresponsive coughing frequently. On 15 L non-rebreather was still hypoxic with SpO2 73%. BVM ventilation initiated. She was then intubated for airway protection and respiratory failure. Central line placed left subclavian, 30 cc/kg bolus developed are administered. Norepinephrine started titrated all the way up to 50 mcg. Received 10 mg of etomidate, 70 mg of rocuronium. ER physician noted vomitus in the airway during intubation. Mechanical ventilator set at 350 mL tidal volume, 20 RR, peep of 8, FiO2 of 80%. Sedated with fentanyl. At this time she was saturating adequately. Noted fever 100.9, rectal Tylenol administered. Vancomycin cefepime and Flagyl administered. WBC 25.1, hemoglobin 8. Baseline between 10 and 11. Platelet 372. 9% band neutrophils. INR 1.2. ABG: PH 7.402, pCO2 48.7, PO2 71, bicarb 29.6 on FiO2 50% via mechanical ventilator. Baseline sodium 136-144. On arrival sodium 174, after lactated Ringer bolus improved to 169. Placed on half-normal saline at 75 cc/hour. Potassium 3.8, chloride 131, bicarb 27, anion gap 11, BUN 83, serum creatinine 2.94, glucose 155, serum osmolality pending, calcium 7.9, lactic acid 1.8, AST 62, ALT 25, alkaline phosphatase 98, CRP 15.9, albumin 2.6, urinalysis with trace leukocyte esterase, 21-50 RBC. MRSA nares not detected. chest x-ray one view demonstrating patchy opacities in right mid lung and right lower lung zones CT abdomen pelvis with contrast demonstrating a PEG tube with balloon inflated in the proximal duodenum. Extensive right middle and lower lobe consolidations CT brain without contrast without acute findings. Incidentally, a rounded soft tissue mass in the sella measuring 13 x 14 x 11 mm follow-up with pituitary MRI is advised if this is new. ----- Is unclear the nature of the inciting event. Treat aspiration pneumonia, continue metronidazole vancomycin and cefepime. Pending sputum and blood cultures. Acute respiratory failure likely due to aspiration pneumonia. Mechanical ventilation, pulmonology and Critical Care consultations. Repeat ABG now. Sedated with fentanyl. Metabolic encephalopathy: Monitor Septic shock as evidenced by aspiration pneumonia with leukocytosis, tachycardia, respiratory failure, hypotension acute renal failure, hypoxia. Currently on Levophed at a high rate. Half-normal saline at 75 cc/hour. Hypernatremia. Patient presented with hypovolemic/septic shock. Received 30 cc/kg isotonic saline bolus. Sodium improved from 174 to 169. Repeat sodium now, currently on half-normal saline at 75 cc/hour. Nephrology consultation. Acute renal failure: Received volume resuscitation. Continue to trend renal function. Renally dose medications. Anemia: Trend hemoglobin, no evidence of exsanguination. Monitor bowel movement. Hold off on pharmacological DVT prophylaxis at this moment. ----- Full code. Half-normal saline at 75 cc/hour. SCDs. NPO. Resides at assisted facility. Reed catheter placed on 05/30/2025 Left subclavian central line placed on 05/30/2025 Intubated on 05/30/2025 Hospitalist [facility] Advance Care Plan I have confirmed that the patient's Advanced Care Plan is present, code status is documented, or surrogate decision maker is listed in patient medical record.: Yes Medication Reconciliation The patient is not eligible for med reconciliation; the patient is in a emergent medical situation where delaying treatment would jeopardize the patients health.: Yes
[2025-05-31] MEDS: VANCOMYCIN 750 MG/NS 250 ML 750 MG/250 ML BAG 250 MG IVPB (05:15)
--- NOTE | 2025-05-31 05:21 | ADMGEN ---
This patient, Amanda Cabrera, was admitted to Intensive Care Unit-3. Patient/family oriented to hospital policies and general routines including ID bracelet, bed and alarms, visiting hours, pain management, procedures, bathroom and other care routines, personal items, smoking policy, room service/diet, and visiting hours. Information on how to activate the Rapid Response Team has been discussed. Patient/Family are encouraged to report perceived risks to care and to ask questions if they do not understand what they are told or what they should do.
[2025-05-31] MEDS: CENTRAL LINE FLUSH 10 ML IV PUSH ×3 (05:33→21:16)
[2025-05-31 05:45] LABS: Anion Gap 13 mmol/L (4-12); Blood Urea Nitrogen 85 mg/dL (7-17); Calcium 8.1 mg/dL (8.4-10.2); Carbon Dioxide 25 mmol/L (22-30); Chloride 129 mmol/L (98-107); Estimated CRCL calculation 13 ml/min; Estimated Glomerular Filt Rate 15; Glucose 188 mg/dL (65-110); Potassium 4.1 mmol/L (3.4-5.0); Sodium 167 mmol/L (137-145)
[2025-05-31 06:00] LABS: Magnesium 2.1 mg/dL (1.6-2.3)
[2025-05-31 06:10] LABS: Alveolar/Arterial O2 Gradient 455.8 mmHg; Carboxyhemoglobin 0.3 % THb (0-2.0); Fractional Inspired Oxygen 80 %; HCO3 ABG 21.1 mEq/l (22.0-26.0); Methemoglobin ABG 0.3 %THb (0-1.5); Oxygen Content ABG 12.7 %vol (16.0-22.0); Oxygen Saturation ABG 96.7 % (95.0-100.0); PCO2 ABG 30.8 mmHg (35.0-45.0); PO2 ABG 82.3 mmHg (80.0-100.0); PO2 FiO2 Ratio Arterial Blood 1.03 %; Reduced Hemoglobin 4.0 %THb (0-5.0)
[2025-05-31 06:12] LABS: Modified Allen's Test Pass; Site Drawn LEFT RADIAL
[2025-05-31 06:13] LABS: Arterial Blood Gas Tidal Volume 350 ml; Arterial Blood Gas Ventilator rate 20 /MIN
[2025-05-31 06:21] LABS: Hematocrit 29.1 % (37.0-47.0); Hemoglobin 8.5 g/dL (12.0-15.0); Mean Corpuscular HGB Conc 29.2 g/dl (32-36); Mean Corpuscular Hemoglobin 30.1 pg (26-34); Mean Corpuscular Volume 103.2 fl (80-100); Platelet Count Result 400 k/mm3 (150-375); Red Blood Count 2.82 M/mm3 (4.2-5.4); White Blood Count 32.1 K/mm3 (4.5-10.0)
[2025-05-31 07:07] LABS: Band Neutrophils Percent 23 % (0-6); Lymphocytes Absolute Manual 3.21 K/mm3 (1.1-4.5); Lymphocytes Percent Manual 10 % (18-44); Neutrophils Absolute Manual 28.89 K/mm3 (1.3-6.7); Neutrophils Percent Manual 67 % (46-73); Schistocytes None Seen; Total Cells Counted 100
[2025-05-31] MEDS: ALBUMIN HUMAN 25% 25 GM/100 ML 100 ML IVPB ×4 (08:19→23:42)
[2025-05-31] MEDS: PANTOPRAZOLE SODIUM IV 40 MG VIAL IV PUSH ×2 (08:24→20:24)
[2025-05-31] MEDS: NOREPINEPHRINE 8 MG/D5W 250 ML 8 MG/250 ML BAG 46.88 MG IV CONT (08:47)
[2025-05-31 09:57] LABS: Creatine Kinase 630 U/L (30-135)
[2025-05-31 10:01] LABS: Urine Eos QC 2nd Tech Confirmed
[2025-05-31 10:16] LABS: Anion Gap 16 mmol/L (4-12); Blood Urea Nitrogen 86 mg/dL (7-17); CRP 25.8 mg/dL (<1.0); Calcium 8.2 mg/dL (8.4-10.2); Carbon Dioxide 22 mmol/L (22-30); Chloride 127 mmol/L (98-107); Estimated CRCL calculation 13 ml/min; Estimated Glomerular Filt Rate 16; Glucose 229 mg/dL (65-110); Potassium 4.0 mmol/L (3.4-5.0); Sodium 165 mmol/L (137-145)
--- NOTE | 2025-05-31 10:45 | WPDCNINT ---
Assessment and Plan Assessment and plan (1) Septic shock: Code(s): A41.9 - Sepsis, unspecified organism; R65.21 - Severe sepsis with septic shock Status: Acute Assessment and Plan: Patient presented with hypoxemic respiratory failure, hypotension, tachycardia, tachypnea -received adequate amount of IV fluids despite which the blood pressures remained low -patient currently on maximum doses of Levophed and vasopressin. Maintain MAP > 65 mmHg for adequate end organ perfusion -leukocytosis along with fevers -lactic acid was normal -acute kidney injury -continue to monitor urine output -patient has been started on cefepime, metronidazole (05/31) -received 1 dose of vancomycin (05/31), MRSA PCR is negative, will discontinue vancomycin (05/31) -05/31: Sputum cultures obtained and pending -05/31: Blood cultures obtained and pending (2) Acute hypoxemic respiratory failure: Code(s): J96.01 - Acute respiratory failure with hypoxia Status: Acute Assessment and Plan: Patient presented with tachypnea, hypoxemia, GCS of 6, septic shock, acute hypoxemic respiratory failure, likely related to aspiration pneumonia as she was given her pills with some pudding and shortly after that patient was found hypoxic with hypotension and febrile at the nursing facility. Patient does have a PEG tube in place -05/31: Intubated in the ER -continue mechanical ventilation, CMV mode of ventilation, -ABGs, CT chest and chest x-ray reviewed: Ventilator adjusted -sedated with fentanyl infusion, will add Versed infusion, maintain RASS of 0 to -2 -daily SBT and SAT (3) Aspiration pneumonia: Code(s): J69.0 - Pneumonitis due to inhalation of food and vomit Status: Acute Assessment and Plan: Continue antibiotics as above -patient may require bronchoscopy (4) Acute renal failure: Code(s): N17.9 - Acute kidney failure, unspecified Status: Acute Assessment and Plan: Acute kidney injury, low urine output could be related to hypoxia, hypotension, ATN -creatinine on admission was 2.82, (baseline creatinine 0.6-0.9 in February of 2025) -patient has been adequately fluid-resuscitated -continue 0.45% NS -nephrology has been consulted -obtain renal ultrasound, CK level, serum and urine osmolality, urine eosinophils, urine lytes -continue to monitor renal function, electrolytes and urine output -avoid nephrotoxic medications (5) Electrolyte abnormality: Code(s): E87.8 - Other disorders of electrolyte and fluid balance, not elsewhere classified Status: Acute Assessment and Plan: HYPERNATREMIA: Could be related to dehydration decreased oral intake. Presented with a sodium level of 174 on admit on admission -patient on 0.45% NS, -this morning sodium levels are 165 -free water deficit is roughly between 5.5-6.0 L -nephrology has been consulted Plan DVT prophylaxis: Heparin subQ Stress ulcer prophylaxis: Protonix Nutrition: NPO for Code Status: Full Critical Care Time Spent: 57 minutes Due to a high probability of clinically significant, life threatening deterioration, the patient required my highest level of preparedness to intervene emergently and I personally spent this critical care time directly and personally managing the patient. This critical care time included obtaining a history; examining the patient; pulse oximetry; ordering and review of studies; arranging urgent treatment with development of a management plan; evaluation of patient's response to treatment; frequent reassessment; and discussions with other providers. It was exclusive of separately billable procedures and treating other patients and teaching time. Please see Assessment and Plan section and the rest of the note for further information on patient assessment and treatment This dictation may have been done utilizing a voice recognition system. Attempts have been made to correct errors. However, there may be uncorrected grammatical, spelling, and recognitions errors present. Digital Campaign Specialist Consult Note Consult date: 05/31/25 Reason for consult: Septic shock, Pneumonia, likely aspiration, acute kidney injury, altered mental status -05/31/2025: Intubated HPI: Amanda Cabrera is a 60 year old female with significant past medical history of intellectual disability, epilepsy, major depressive disorder, anxiety disorder, schizoaffective disorder, dysphagia with a PEG tube presented the ED from a [place] [facility] facility after she was found unresponsive hypoxic and febrile. Hours before coming to the ER she was doing fine and was given her nightly medications with pudding in the nursing facility, upon recheck on her several hours later she was found unresponsive, febrile and hypoxic, EMS was called, patient had O2 sats in the 50s on supplemental oxygen, with hypotensive with systolic blood pressures in the 80s and tachycardia with heart rate in the 120s to 140s along with tachypnea. S since patient has a GCS of 6, was intubated the ER. Received 30 mL/kg IV fluid bolus, despite which she was hypotensive and a central line in the left subclavian was inserted. Patient was started on Levophed, vasopressin. Given cefepime metronidazole and vancomycin. Sedated with fentanyl infusion and Transferred to ICU for further management In the ER WBC count was 25.1, hemoglobin 8.0, platelets of 372, 9% bandemia. Sodium was 174, potassium 3.9, chloride 133, CO2 27, anion gap 14, BUN 83, creatinine 2.8 to (baseline creatinine in in February of 2025 10.7-0.8), lactic acid was 1.8, LFTs are within normal limits, CRP was 15.9 S, albumin of 2.6. CT brain: No acute intracranial abnormality CT chest abdomen pelvis showed complete right middle and lower lobe consolidation with tree-in-bud and centrilobular nodules in the right upper lobe. Findings are compatible with extensive aspiration pneumonia with fluid opacification of bronchus intermedius. Possible mild wall thickening extensively involving large bowel, correlate with infectious/inflammatory colitis versus under distention Patient seen examined this morning. Remains intubated on CMV mode of ventilation, peep of 8, 60% FiO2. Sedated with fentanyl infusion, does not open her eyes or follow simple commands. Remains on maximum doses of Levophed and vasopressin. Urine output has been low, T-max of 101.2? Review of Systems Review of Systems: ROS unobtainable: Yes unobtainable due to endotracheal tube and unobtainable due to medical condition PMFSH Past Medical History Medical History Intellectual disability Epilepsy Major depressive disorder Anxiety disorder Schizoaffective disorder Surgical History Surgical History Surgical history unknown Family History Family History Other Unknown family medical history Social History Social History Social History: Code status: Full code (per fdc documentation) Smoking status: Unknown if ever smoked Alcohol intake: unknown Substance use: unknown Spiritual care concerns: No Meds Home Medications and Allergies Home Medications ?Medication ?Instructions ?Recorded ?Confirmed ?Type bupropion HCl 150 mg 24 hr tablet, 150 mg PO QAM 09/27/24 05/31/25 History extended release (Wellbutrin XL) lisinopril 10 mg tablet 10 mg PO DAILY 09/27/24 05/31/25 History valproic acid 250 mg capsule 750 mg PO HS 09/27/24 05/31/25 History acetaminophen 325 mg tablet 650 mg (2 x 325 mg) feeding tube 10/25/24 05/31/25 Rx Q4H PRN pain or fever #10 tabs alprazolam 0.5 mg tablet (Xanax) 0.5 mg feeding tube TID #10 tabs 10/25/24 05/31/25 Rx aripiprazole 20 mg tablet 20 mg feeding tube DAILY #10 tabs 10/25/24 05/31/25 Rx famotidine 20 mg tablet 20 mg feeding tube DAILY 05/31/25 05/31/25 History furosemide 40 mg tablet (Lasix) 40 mg PO DAILY 05/31/25 05/31/25 History guaifenesin 1,200 mg tablet, 1,200 mg PO BID 05/31/25 05/31/25 History extended release 12 hr (Mucinex) ipratropium 0.5 mg-albuterol 3 mg 3 ml inhalation Q6H PRN shortness 05/31/25 05/31/25 History (2.5 mg base)/3 mL nebulization of breath or wheezing soln loratadine 10 mg capsule (Allergy 10 mg PO DAILY 05/31/25 05/31/25 History Relief (loratadine)) Allergies Allergy/AdvReac Type Severity Reaction Status Date / Time No Known Allergies Allergy Verified 09/27/24 22:08 Vital Signs Vital Signs - 24 hr 05/30/25 23:08 05/30/25 23:15 05/30/25 23:22 Temperature 100.5 F H Pulse Rate 143 H 139 H Respiratory Rate 28 H Blood Pressure 81/50 L Pulse Oximetry 73 L 73 L Oxygen Delivery Non-Rebreather Mask Non-Rebreather Mask Oxygen Flow Rate 15 15 Fraction of Inspired Oxygen 05/30/25 23:22 05/30/25 23:22 05/30/25 23:28 Temperature 101.8 F H Pulse Rate 143 H 130 H Respiratory Rate Blood Pressure 81/50 L 78/44 L Pulse Oximetry 73 L 73 L Oxygen Delivery Non-Rebreather Mask Oxygen Flow Rate 15 Fraction of Inspired Oxygen 05/30/25 23:29 05/30/25 23:38 05/30/25 23:38 Temperature Pulse Rate 130 H 130 H 128 H Respiratory Rate 26 H Blood Pressure 82/65 L 78/44 L 88/74 L Pulse Oximetry 93 Oxygen Delivery Oxygen Flow Rate Fraction of Inspired Oxygen 05/30/25 23:43 05/30/25 23:45 05/30/25 23:50 Temperature Pulse Rate 128 H 128 H 127 H Respiratory Rate 28 H 20 Blood Pressure 100/37 L 100/37 L Pulse Oximetry 88 L Oxygen Delivery Oxygen Flow Rate Fraction of Inspired Oxygen 05/30/25 23:50 05/31/25 00:00 05/31/25 00:00 Temperature Pulse Rate 127 H 123 H 123 H Respiratory Rate 20 20 Blood Pressure 117/64 120/62 120/62 Pulse Oximetry 98 100 Oxygen Delivery Oxygen Flow Rate Fraction of Inspired Oxygen 05/31/25 00:05 05/31/25 00:09 05/31/25 00:15 Temperature Pulse Rate 123 H 122 H 121 H Respiratory Rate 20 19 Blood Pressure 120/62 123/63 Pulse Oximetry 100 99 100 Oxygen Delivery Mechanical Ventilation Oxygen Flow Rate Fraction of Inspired Oxygen 05/31/25 00:20 05/31/25 00:30 05/31/25 00:35 Temperature 100.5 F H Pulse Rate 121 H 121 H 121 H Respiratory Rate 19 20 20 Blood Pressure 123/63 126/77 126/77 Pulse Oximetry 100 99 99 Oxygen Delivery Oxygen Flow Rate Fraction of Inspired Oxygen 05/31/25 00:45 05/31/25 00:50 05/31/25 01:50 Temperature 101.1 F H 101 F H 101 F H Pulse Rate 118 H 118 H 101 H Respiratory Rate 20 20 20 Blood Pressure 119/62 119/62 118/61 Pulse Oximetry 98 98 97 Oxygen Delivery Oxygen Flow Rate Fraction of Inspired Oxygen 05/31/25 01:55 05/31/25 02:00 05/31/25 02:15 Temperature 101.2 F H 101.0 F H Pulse Rate 106 H 102 H Respiratory Rate 20 21 H Blood Pressure 112/64 121/84 Pulse Oximetry 92 Oxygen Delivery Mechanical Ventilation Oxygen Flow Rate Fraction of Inspired Oxygen 60 05/31/25 02:36 05/31/25 02:40 05/31/25 02:50 Temperature 100.9 F H 100.8 F H 100.7 F H Pulse Rate 90 96 Respiratory Rate 22 H 18 Blood Pressure 121/73 120/58 L Pulse Oximetry 96 97 Oxygen Delivery Oxygen Flow Rate Fraction of Inspired Oxygen 05/31/25 03:25 05/31/25 03:48 05/31/25 04:05 Temperature 100.7 F H 100.7 F H Pulse Rate 80 89 94 Respiratory Rate 20 22 H 19 Blood Pressure 122/59 L 122/59 L Pulse Oximetry 96 96 Oxygen Delivery Oxygen Flow Rate Fraction of Inspired Oxygen 05/31/25 04:22 05/31/25 04:24 05/31/25 04:53 Temperature 100.5 F H Pulse Rate 67 67 69 Respiratory Rate 19 Blood Pressure 111/47 L 111/47 L 115/42 L Pulse Oximetry 94 Oxygen Delivery Oxygen Flow Rate Fraction of Inspired Oxygen 05/31/25 04:57 05/31/25 05:00 05/31/25 05:00 Temperature Pulse Rate 81 70 70 Respiratory Rate Blood Pressure 129/73 129/73 Pulse Oximetry 97 Oxygen Delivery Mechanical Ventilation Oxygen Flow Rate Fraction of Inspired Oxygen 80 05/31/25 05:00 05/31/25 05:30 05/31/25 06:00 Temperature Pulse Rate 70 70 66 Respiratory Rate 21 H 21 H Blood Pressure Pulse Oximetry 97 Oxygen Delivery Mechanical Ventilation Oxygen Flow Rate Fraction of Inspired Oxygen 80 05/31/25 06:00 05/31/25 06:00 05/31/25 06:15 Temperature 99.1 F Pulse Rate 67 68 68 Respiratory Rate 21 H 22 H Blood Pressure 97/55 L 95/67 L Pulse Oximetry 98 Oxygen Delivery Oxygen Flow Rate Fraction of Inspired Oxygen 05/31/25 06:15 05/31/25 06:15 05/31/25 06:16 Temperature 99.1 F Pulse Rate 68 68 67 Respiratory Rate 21 H 21 H Blood Pressure 95/67 L 95/67 L Pulse Oximetry 98 98 Oxygen Delivery Mechanical Ventilation Oxygen Flow Rate Fraction of Inspired Oxygen 80 05/31/25 06:32 05/31/25 07:29 05/31/25 07:31 Temperature 98.9 F 99.4 F Pulse Rate 68 68 68 Respiratory Rate 21 H 22 H Blood Pressure 102/64 107/57 L Pulse Oximetry 100 100 100 Oxygen Delivery Mechanical Ventilation Oxygen Flow Rate Fraction of Inspired Oxygen 80 05/31/25 08:00 05/31/25 08:00 05/31/25 08:00 Temperature Pulse Rate 68 68 68 Respiratory Rate 22 H Blood Pressure 109/39 L 109/39 L Pulse Oximetry Oxygen Delivery Oxygen Flow Rate Fraction of Inspired Oxygen 05/31/25 08:00 05/31/25 08:00 05/31/25 08:00 Temperature Pulse Rate 66 66 Respiratory Rate 22 H Blood Pressure Pulse Oximetry 98 Oxygen Delivery Mechanical Ventilation Oxygen Flow Rate Fraction of Inspired Oxygen 60 60 05/31/25 08:39 05/31/25 08:45 05/31/25 08:47 Temperature Pulse Rate 67 72 66 Respiratory Rate 22 H 24 H Blood Pressure 137/123 H Pulse Oximetry Oxygen Delivery Oxygen Flow Rate Fraction of Inspired Oxygen 05/31/25 08:47 05/31/25 09:00 05/31/25 09:02 Temperature Pulse Rate 66 69 65 Respiratory Rate 22 H Blood Pressure 137/123 H 69/40 L Pulse Oximetry Oxygen Delivery Oxygen Flow Rate Fraction of Inspired Oxygen 05/31/25 09:10 05/31/25 09:30 05/31/25 09:36 Temperature Pulse Rate 65 67 66 Respiratory Rate Blood Pressure 68/57 L 127/70 127/70 Pulse Oximetry Oxygen Delivery Oxygen Flow Rate Fraction of Inspired Oxygen 05/31/25 09:45 05/31/25 09:52 05/31/25 10:03 Temperature Pulse Rate 67 68 69 Respiratory Rate Blood Pressure 58/47 L 140/63 136/55 L Pulse Oximetry Oxygen Delivery Oxygen Flow Rate Fraction of Inspired Oxygen 05/31/25 10:26 Temperature Pulse Rate 69 Respiratory Rate Blood Pressure Pulse Oximetry 97 Oxygen Delivery Mechanical Ventilation Oxygen Flow Rate Fraction of Inspired Oxygen 60 Exam Narrative: General: Intubated and sedated, in no acute distress HEENT:? Pupils are pinpoint and sluggish, sclera is clear, ETT in place Neck:? Supple Respiratory:? Coarse breath sounds on right > left, no wheezing, adequate air entry Cardiac:? S1-S2 is normal, regular rate and rhythm Abdomen:? Soft, nontender, nondistended, PEG tube in placed, hypoactive bowel sounds Extremities:? Trace edema, palpable pedal pulse Neuro:? Patient is intubated, sedated, does not open her eyes to name of follows simple commands Skin:? Excoriations and scratch issa noted on the abdominal on the umbilicus, old healing wounds on the toes Psych:? Unable to assess at this time Results Labs 05/31/25 06:06 05/31/25 09:23 Labs: Short CBC 05/30/25 05/31/25 Range/Units 23:45 06:06 WBC 25.1 H 32.1 H (4.5-10.0) K/mm3 Hgb 8.0 L 8.5 L (12.0-15.0) g/dL Hct 28.2 L 29.1 L (37.0-47.0) % Plt Count 372 D 400 H (150-375) k/mm3 BMP 05/31/25 05/31/25 05/31/25 00:35 02:08 05:09 Sodium 174 H* 169 H* 167 H* Potassium 3.9 3.8 4.1 Chloride 133 H 131 H 129 H Carbon Dioxide 27 27 25 BUN 83 H D 83 H 85 H Creatinine 2.82 H 2.94 H 3.10 H Glucose 126 H 155 H 188 H Calcium 8.0 L 7.9 L 8.1 L 05/31/25 09:23 Sodium 165 H* Potassium 4.0 Chloride 127 H Carbon Dioxide 22 BUN 86 H Creatinine 3.03 H Glucose 229 H Calcium 8.2 L Cardiac Enzymes 05/31/25 Range/Units 09:23 Total Creatine Kinase 630 H (30-135) U/L Liver Function 05/31/25 Range/Units 00:35 Total Bilirubin 0.3 (0.2-1.3) mg/dL AST 62 H (14-36) U/L ALT 25 (6-35) U/L Alkaline Phosphatase 98 (38-126) U/L Albumin 2.6 L (3.5-5.1) g/dL Urine 05/31/25 Range/Units 00:12 Urine Color Yellow (Yellow) Urine Appearance Clear (Clear) Urine pH 5.0 (5.0-9.0) Ur Specific [place] 1.023 (1.001-1.035) Urine Protein Trace (Negative) mg/dL Urine Glucose (UA) Negative (Negative) mg/dL Quality VTE Prophylaxis VTE prophylaxis: pharmacologic ordered Hospitalist MIPS Advance Care Plan I have confirmed that the patient's Advanced Care Plan is present, code status is documented, or surrogate decision maker is listed in patient medical record.: Yes Medication Reconciliation I have utilized all available resources to obtain, update and review the patients current medications (includes all prescriptions, OTC, herbals, cannabis, and nutritional supplements).: Yes
[2025-05-31] MEDS: MIDAZOLAM 100MG/NS 100ML(*CRX) 100 MG/100 ML BAG IV CONT (10:48)
--- NOTE | 2025-05-31 10:55 | P.CDI_ITS ---
CDI Query Clarification Request Hypoxia has been documented Please review the clinical information below and clarify the respiratory diagnosis the patient is being treated for: Hypoxia or hypoxemia without respiratory failure Respiratory distress without respiratory failure Acute respiratory failure with hypoxia Acute respiratory failure with hypercapnia Acute respiratory failure with hypoxia and hypercapnia Acute on chronic respiratory failure with hypoxia Acute on chronic respiratory failure with hypercapnia Acute on chronic respiratory failure with hypoxia and hypercapnia Acute respiratory distress syndrome (ARDS) Chronic respiratory failure with hypoxia Chronic respiratory failure with hypercapnia Chronic respiratory failure with hypoxia and hypercapnia Other explanation clinical findings, please specify Unable to determine The medical chart reflects the following: This is a 60-year-old female with a history of intellectual disability, schizoaffective disorder, dysphagia with the PEG tube, depression and anxiety, seizure disorder who presents from her group home facility as she was found unresponsive, hypoxic, and with a fever. Hours before she was doing fine and she was given her nightly medications with pudding. Upon presentation to [facility] on 05/30/2025 she was found to be hypotensive tachycardia tachypneic. She was unresponsive coughing frequently. On 15 L non-rebreather was still hypoxic with SpO2 73%. BVM ventilation initiated. She was then intubated for airway protection and respiratory failure. Central line placed left subclavian, 30 cc/kg bolus developed are administered. Norepinephrine star george titrated all the way up to 50 mcg. Received 10 mg of etomidate, 70 mg of rocuronium. ER physician noted vomitus in the airway during intubation.
[2025-05-31] MEDS: INSULIN ASPART (*BKC) 100 UNITS/ML SUB-Q (11:24)
[2025-05-31] MEDS: ACETAMINOPHEN ELIXIR 325 MG/10.15 ML UDC 650 MG PO (12:14)
[2025-05-31] MEDS: DORNASE ALFA INH SOLN 1 MG/ML 2.5 ML AMP 2.5 MG INHALATION (12:41)
[2025-05-31] MEDS: IPRATROPIUM 0.5 MG/ALBUTEROL SULFATE 2.5 MG AMPUL.NEB 3 ML INHALATION ×2 (13:17→20:08)
[2025-05-31] MEDS: ACETYLCYSTEINE 20% INHAL SOLN 800 MG/4 ML VIAL 200 MG INHALATION ×2 (13:17→20:09)
--- NOTE | 2025-05-31 13:33 | P.CONNP_ITS ---
Assessment and Plan Assessment and plan (1) Hypernatremia: Code(s): E87.0 - Hyperosmolality and hypernatremia Status: Acute Assessment and Plan: * as noted on admission * significant free water deficit noted (~ 5.5 - 6.0 liters...) * presumably this change in sodium occurred over several days if not longer (chronic) * goal of therapy would be a change in sodium ~ 10 - 12mmol/L in 24 hours * hence, would aim for a sodium level of 162 - 164mmol/L by midnight today * sodium improving with just 1/2NS IVFs (and this is likely helping MYLA/ARF as well) * will likely introduce free water flushes to compensate as well * follow trend of repeat sodium levels (2) Acute renal failure: Code(s): N17.9 - Acute kidney failure, unspecified Status: Acute Assessment and Plan: * normal renal function ~ 3 months ago * suspect multifactorial: * hemodynamic instability/shock * infection/sepsis * diuretic and DOMINGUEZ-I use prior to admission * other(?) * follow-up on urine studies, renal ultrasound, and CPK * s/p aggressive IVF resuscitation * continue maintenance IVFs at this time (but follow sodium closely -- see #1) * follow trend of repeat labs and UOP (3) Septic shock: Code(s): A41.9 - Sepsis, unspecified organism; R65.21 - Severe sepsis with septic shock Status: Acute Assessment and Plan: * as noted on presentation with acute respiratory failure with tachypnea, hypotension, tachycardia, leukocytosis, and fever * s/p aggressive IVF resuscitation but hypotension persisted * initiated on vasopressor therapy (levophed + vasopressin) * follow culture data * on antibiotics * follow trend of hemodynamics (4) Acute hypoxic respiratory failure: Code(s): J96.01 - Acute respiratory failure with hypoxia Status: Acute Assessment and Plan: * as noted on presenation * suspect secondary to aspiration pneumonia * by report, took pills and pudding with subsequent hypoxia, low BP, and fever * intubated in ER and on mechanical ventilation * imaging results noted * weaning once more stable (5) Aspiration pneumonia: Qualifiers: Aspiration pneumonia type: unspecified Laterality: bilateral Lung location: unspecified part of lung Qualified Code(s): J69.0 - Pneumonitis due to inhalation of food and vomit Code(s): J69.0 - Pneumonitis due to inhalation of food and vomit Status: Acute Assessment and Plan: * suspected etiology of #4 and #3 * continue therapy as outlined (6) Anemia: Code(s): D64.9 - Anemia, unspecified Status: Acute Assessment and Plan: * presumably related to MYLA/ARF and acute illness * PRBC transfusion per protocol * follow trend of H/H I will continue to follow the patient with you while he remains hospitalized and make further recommendations as deemed necessary. Thank you for allowing me to participate in the care of this patient. L History of Present Illness Reason for Consult Consult date: 05/31/25 Reason for consult: acute renal failure and hypernatremia Chief Complaint Chief complaint: Hypoxemic,respiratory failure,aspiration,severe hy History of Present Illness Narrative: All of the information I obtained is from review of the electronic medical record as the patient is unable to provide any history as she is currently intubated and on mechanical ventilation. The patient is a 60-year-old female with a past medical history as outlined below presented to [facility] Emergency Room from her nursing facility after being found unresponsive. Apparently, several hours before coming to the ER, the patient was at her usual baseline health status. She was apparently given her nighttime medications with putting at her nursing facility. Upon nursing reassessment of the patient few hours later, she was apparently found unresponsive, hypoxic, and febrile. Given this significant change in her clinical condition, 911 was contacted and EMS was summoned to her for sit nursing facility. Upon EMS arrival, she was apparently saturating 50% on supplemental oxygen and was hypotensive in the 80s systolic in association with heart rate 120-130s with noted tachypnea. She was subsequently transported to the emergency room for further assessment. By the time of her arrival to the emergency room, there was some concern that she was unable to protect her airway in association with her hemodynamic instability and profound hypoxia. She was subsequently intubated in the emergency room and placed on mechanical ventilation. She received aggressive IV fluid resuscitation for hypotension but this failed to improve her hemodynamics. A central line was subsequently placed and she was started on vasopressor therapy to maintain her mean arterial pressure/BP. Routine blood work was notable for an elevated white blood cell count of 25.1, hemoglobin 8.0, platelet count 372, 90% bandemia, sodium 174, potassium 3.9, bicarb 27, BUN 83, creatinine of 2.8, lactic acid 1.8, normal LFTs, albumin 2.6, as CRP of 15.9. subsequent imaging included a CT scan of her head which was negative for any acute intracranial process and a subsequent CT of the chest/abdomen /pelvis which demonstrated complete right middle lobe and lower lobe consolidation with tree in bud and central lobar nodules in the right upper lobe with the findings compatible with extensive aspiration pneumonia and fluid opacification in the bronchus intermedius. After appropriate cultures were obtained, she was initiated on broad-spectrum antibiotics and subsequently transported to the intensive care unit further intervention/monitoring. Since her admission to the ICU, she was initiated on IV fluids with some mild improvement in her severe hyponatremia. Her urine output since admission has been somewhat sluggish as well and she was febrile overnight with a T-max of 101.2?. Renal consultation was requested due to her acute kidney injury/ acute renal failure as well as severe hyponatremia. From review of her records, her renal function on last hospitalization here at [facility] was well within normal limits as was her sodium level. With the use of half-normal saline, her sodium has improved mildly and and her renal function/creatinine is a bit better as well. As already mentioned above, on her last hospitalization here at [facility] not too long ago, her sodium level was within normal limits as was her kidney function. Currently the patient is intubated/sedated and on mechanical ventilation and does not appear to be any acute distress. Review of Systems 2 Review of Systems: As per HPI. [facility] Past Medical History Medical History Intellectual disability Epilepsy Major depressive disorder Anxiety disorder Schizoaffective disorder Surgical History Surgical History Surgical history unknown Family History Family History Other Unknown family medical history Social History Social History Social History: Code status: Full code (per alf documentation) Smoking status: Unknown if ever smoked Alcohol intake: unknown Substance use: unknown Spiritual care concerns: No Meds Home Medications and Allergies Home Medications ?Medication ?Instructions ?Recorded ?Confirmed ?Type bupropion HCl 150 mg 24 hr tablet, 150 mg PO QAM 09/27/24 05/31/25 History extended release (Wellbutrin XL) lisinopril 10 mg tablet 10 mg PO DAILY 09/27/24 05/31/25 History valproic acid 250 mg capsule 750 mg PO HS 09/27/24 05/31/25 History acetaminophen 325 mg tablet 650 mg (2 x 325 mg) feeding tube 10/25/24 05/31/25 Rx Q4H PRN pain or fever #10 tabs alprazolam 0.5 mg tablet (Xanax) 0.5 mg feeding tube TID #10 tabs 10/25/24 05/31/25 Rx aripiprazole 20 mg tablet 20 mg feeding tube DAILY #10 tabs 10/25/24 05/31/25 Rx famotidine 20 mg tablet 20 mg feeding tube DAILY 05/31/25 05/31/25 History furosemide 40 mg tablet (Lasix) 40 mg PO DAILY 05/31/25 05/31/25 History guaifenesin 1,200 mg tablet, 1,200 mg PO BID 05/31/25 05/31/25 History extended release 12 hr (Mucinex) ipratropium 0.5 mg-albuterol 3 mg 3 ml inhalation Q6H PRN shortness 05/31/25 05/31/25 History (2.5 mg base)/3 mL nebulization of breath or wheezing soln loratadine 10 mg capsule (Allergy 10 mg PO DAILY 05/31/25 05/31/25 History Relief (loratadine)) Allergies Allergy/AdvReac Type Severity Reaction Status Date / Time No Known Allergies Allergy Verified 09/27/24 22:08 Vital Signs Vital Signs Temp Pulse Resp BP Pulse Ox O2 Del Method O2 Flow Rate 05/31/25 13:20 71 20 97 Mechanical Ventilation 05/31/25 12:52 69 130/72 05/31/25 12:51 69 20 05/31/25 12:42 68 22 H 05/31/25 12:14 100.4 F H 05/31/25 12:00 05/31/25 12:00 68 05/31/25 12:00 68 21 H Mechanical Ventilation 05/31/25 12:00 68 21 H 05/31/25 12:00 68 124/72 05/31/25 12:00 68 21 H 05/31/25 12:00 68 124/72 05/31/25 12:00 100.6 F H 68 21 H 124/72 97 05/31/25 11:26 67 21 H 05/31/25 11:23 68 133/76 05/31/25 10:55 67 132/58 L 05/31/25 10:48 67 21 H 05/31/25 10:26 69 97 Mechanical Ventilation 05/31/25 10:03 69 136/55 L 05/31/25 10:00 100.2 F H 68 21 H 136/55 L 99 05/31/25 10:00 68 135/55 L 05/31/25 10:00 68 21 H 05/31/25 10:00 68 136/55 L 05/31/25 09:52 68 140/63 05/31/25 09:45 67 58/47 L 05/31/25 09:36 66 127/70 05/31/25 09:30 67 127/70 05/31/25 09:10 65 68/57 L 05/31/25 09:02 65 69/40 L 05/31/25 09:00 69 22 H 05/31/25 08:47 66 137/123 H 05/31/25 08:47 66 137/123 H 05/31/25 08:45 72 24 H 05/31/25 08:39 67 22 H 05/31/25 08:00 66 05/31/25 08:00 05/31/25 08:00 66 22 H 98 Mechanical Ventilation 05/31/25 08:00 68 109/39 L 05/31/25 08:00 68 109/39 L 05/31/25 08:00 68 22 H 05/31/25 07:31 99.4 F 68 22 H 107/57 L 100 05/31/25 07:29 68 100 Mechanical Ventilation 05/31/25 06:32 98.9 F 68 21 H 102/64 100 05/31/25 06:16 67 21 H 98 Mechanical Ventilation 05/31/25 06:15 99.1 F 68 21 H 95/67 L 98 05/31/25 06:15 68 95/67 L 05/31/25 06:15 68 95/67 L 05/31/25 06:00 68 22 H 05/31/25 06:00 99.1 F 67 21 H 97/55 L 98 05/31/25 06:00 66 05/31/25 05:30 70 21 H 97 Mechanical Ventilation 05/31/25 05:00 70 21 H 05/31/25 05:00 70 129/73 05/31/25 05:00 70 129/73 05/31/25 04:57 81 97 Mechanical Ventilation 05/31/25 04:53 100.5 F H 69 19 115/42 L 94 05/31/25 04:24 67 111/47 L 05/31/25 04:22 67 111/47 L 05/31/25 04:05 100.7 F H 94 19 122/59 L 96 05/31/25 03:48 100.7 F H 89 22 H 122/59 L 96 05/31/25 03:25 80 20 05/31/25 02:50 100.7 F H 96 18 120/58 L 97 05/31/25 02:40 100.8 F H 90 22 H 121/73 96 05/31/25 02:36 100.9 F H 05/31/25 02:15 101.0 F H 102 H 21 H 121/84 92 05/31/25 02:00 101.2 F H 106 H 20 112/64 05/31/25 01:55 Mechanical Ventilation 05/31/25 01:50 101 F H 101 H 20 118/61 97 05/31/25 00:50 101 F H 118 H 20 119/62 98 05/31/25 00:45 101.1 F H 118 H 20 119/62 98 05/31/25 00:35 121 H 20 126/77 99 05/31/25 00:30 100.5 F H 121 H 20 126/77 99 05/31/25 00:20 121 H 19 123/63 100 05/31/25 00:15 121 H 19 123/63 100 05/31/25 00:09 122 H 99 Mechanical Ventilation 05/31/25 00:05 123 H 20 120/62 100 05/31/25 00:00 123 H 20 120/62 100 05/31/25 00:00 123 H 120/62 05/30/25 23:50 127 H 20 117/64 98 05/30/25 23:50 127 H 20 05/30/25 23:45 128 H 28 H 100/37 L 88 L 05/30/25 23:43 128 H 100/37 L 05/30/25 23:38 128 H 88/74 L 05/30/25 23:38 130 H 26 H 78/44 L 93 05/30/25 23:29 130 H 82/65 L 05/30/25 23:28 130 H 78/44 L 05/30/25 23:22 101.8 F H 143 H 81/50 L 73 L 05/30/25 23:22 73 L Non-Rebreather Mask 05/30/25 23:22 139 H 05/30/25 23:15 73 L Non-Rebreather Mask 05/30/25 23:08 100.5 F H 143 H 28 H 81/50 L 73 L Non-Rebreather Mask 15 Exam 2 Narrative: GENERAL APPEARANCE: ill appeating female intubated/sedated and on mechanical ventilation HEENT: normocephalic, atraumatic, nares patient NECK: no lymphadenopathy, thyromegaly, or JVD MOUTH: normal lips, teeth, and gums; ETT in place CARDIOVASCULAR: RRR, normal S1 and S2, no rub detected RESPIRATORY: coarse breath sounds ABDOMEN: soft, nontender, nondistended, diminished bowel sounds present; + G- tube EXTREMITIES: no evidence of cyanosis, clubbing, traceedema NEUROLOGICAL: unable to assess Results Lab Results 06/01/25 04:19 06/02/25 00:21 Lab results: Most recent lab results ABG pH 7.454 (7.350-7.450) H 05/31/25 05:57 ABG pCO2 30.8 mmHg (35.0-45.0) L 05/31/25 05:57 ABG pO2 82.3 mmHg (80.0-100.0) 05/31/25 05:57 ABG HCO3 21.1 mEq/l (22.0-26.0) L 05/31/25 05:57 ABG O2 Saturation 96.7 % (95.0-100.0) 05/31/25 05:57 Calcium 8.6 mg/dL (8.4-10.2) 05/31/25 17:03 Phosphorus 4.8 mg/dL (2.5-4.5) H 05/31/25 05:09 Magnesium 2.1 mg/dL (1.6-2.3) 05/31/25 05:09 Urine Creatinine 94.2 mg/dL 05/31/25 09:23
[2025-05-31] MEDS: NOREPINEPHRINE 8 MG/D5W 250 ML 8 MG/250 ML BAG 31.88 MG IV CONT (14:16)
[2025-05-31 14:29] LABS: Anion Gap 15 mmol/L (4-12); Blood Urea Nitrogen 83 mg/dL (7-17); Calcium 8.4 mg/dL (8.4-10.2); Carbon Dioxide 23 mmol/L (22-30); Chloride 126 mmol/L (98-107); Estimated CRCL calculation 17 ml/min; Estimated Glomerular Filt Rate 18; Glucose 201 mg/dL (65-110); Potassium 3.7 mmol/L (3.4-5.0); Sodium 164 mmol/L (137-145)
[2025-05-31 17:31] LABS: Anion Gap 14 mmol/L (4-12); Blood Urea Nitrogen 83 mg/dL (7-17); Calcium 8.6 mg/dL (8.4-10.2); Carbon Dioxide 22 mmol/L (22-30); Chloride 127 mmol/L (98-107); Estimated CRCL calculation 17 ml/min; Estimated Glomerular Filt Rate 19; Glucose 195 mg/dL (65-110); Potassium 3.7 mmol/L (3.4-5.0); Sodium 163 mmol/L (137-145)
[2025-05-31] MEDS: MINERAL OIL/WHITE PETROLATUM OINTMENT 1 APPLIC EACH EYE (20:24)
[2025-05-31 21:42] LABS: Anion Gap 14 mmol/L (4-12); Blood Urea Nitrogen 80 mg/dL (7-17); Calcium 8.7 mg/dL (8.4-10.2); Carbon Dioxide 23 mmol/L (22-30); Chloride 125 mmol/L (98-107); Estimated CRCL calculation 18 ml/min; Estimated Glomerular Filt Rate 20; Glucose 195 mg/dL (65-110); Potassium 3.6 mmol/L (3.4-5.0); Sodium 162 mmol/L (137-145)
[2025-05-31] MEDS: FENTANYL 2,500MCG/NS250ML(*CRX 2,500 MCG/250 ML BAG 12.5 MCG IV CONT (21:53)
[2025-05-31 23:00] LABS: Urea Random Urine 647 MG/DL
[2025-06-01] VITALS (47 sets, daily range): BP systolic 86–125; BP diastolic 52–78; PULSE 57–92; RESP 18–22; TEMP 36.2–37.4; O2SAT 92–100
[2025-06-01 00:30] LABS: Anion Gap 13 mmol/L (4-12); Blood Urea Nitrogen 80 mg/dL (7-17); Calcium 8.8 mg/dL (8.4-10.2); Carbon Dioxide 23 mmol/L (22-30); Chloride 126 mmol/L (98-107); Estimated CRCL calculation 19 ml/min; Estimated Glomerular Filt Rate 21; Glucose 147 mg/dL (65-110); Potassium 3.5 mmol/L (3.4-5.0); Sodium 162 mmol/L (137-145)
--- NOTE | 2025-06-01 01:06 | PCRCNOTE ---
Window of time for administration has passed. See next scheduled administration.
[2025-06-01] MEDS: IPRATROPIUM 0.5 MG/ALBUTEROL SULFATE 2.5 MG AMPUL.NEB 3 ML INHALATION ×4 (01:07→20:14)
[2025-06-01] MEDS: ACETYLCYSTEINE 20% INHAL SOLN 800 MG/4 ML VIAL 200 MG INHALATION ×4 (01:08→20:14)
[2025-06-01] MEDS: NOREPINEPHRINE 8 MG/D5W 250 ML 8 MG/250 ML BAG 24.38 MG IV CONT ×2 (01:19→13:26)
[2025-06-01] MEDS: CEFEPIME 2 GM in SODIUM CHLORIDE 0.9% IV 50 ML 100 ML IVPB (03:24)
[2025-06-01 04:47] LABS: Hematocrit 22.4 % (37.0-47.0); Mean Corpuscular HGB Conc 30.8 g/dl (32-36); Mean Corpuscular Hemoglobin 30.7 pg (26-34); Mean Corpuscular Volume 99.6 fl (80-100); Platelet Count Result 255 k/mm3 (150-375); Red Blood Count 2.25 M/mm3 (4.2-5.4); White Blood Count 19.4 K/mm3 (4.5-10.0)
[2025-06-01 04:49] LABS: Alveolar/Arterial O2 Gradient 145.8 mmHg; Carboxyhemoglobin 0.6 % THb (0-2.0); Fractional Inspired Oxygen 35 %; HCO3 ABG 20.7 mEq/l (22.0-26.0); Methemoglobin ABG 0.1 %THb (0-1.5); Oxygen Content ABG 10.6 %vol (16.0-22.0); Oxygen Saturation ABG 96.1 % (95.0-100.0); PCO2 ABG 26.9 mmHg (35.0-45.0); PO2 ABG 72.5 mmHg (80.0-100.0); PO2 FiO2 Ratio Arterial Blood 2.07 %; Reduced Hemoglobin 4.9 %THb (0-5.0)
[2025-06-01 04:58] LABS: INR 2.1; Prothrombin Time 23.1 Seconds (11.1-14.7)
[2025-06-01 04:58] LABS: Modified Allen's Test Pass; Site Drawn LEFT RADIAL
[2025-06-01 04:59] LABS: Arterial Blood Gas Tidal Volume 350 ml; Arterial Blood Gas Ventilator rate 20 /MIN
[2025-06-01 04:59] LABS: Partial Thromboplastin Time 44.3 Seconds (22.3-36.8)
[2025-06-01 05:14] LABS: Hemoglobin 6.9 g/dL (12.0-15.0)
[2025-06-01 05:16] LABS: Alanine Aminotransferase 35 U/L (6-35); Albumin Level 3.6 g/dL (3.5-5.1); Alkaline Phosphatase 68 U/L (38-126); Anion Gap 11 mmol/L (4-12); Aspartate Amino Transferase 73 U/L (14-36); Bilirubin,Total 0.6 mg/dL (0.2-1.3); Blood Urea Nitrogen 81 mg/dL (7-17); Calcium 9.1 mg/dL (8.4-10.2); Carbon Dioxide 24 mmol/L (22-30); Chloride 127 mmol/L (98-107); Estimated CRCL calculation 19 ml/min; Estimated Glomerular Filt Rate 21; Glucose 125 mg/dL (65-110); Lipase 27 U/L (23-300); Magnesium 2.2 mg/dL (1.6-2.3); Potassium 3.5 mmol/L (3.4-5.0); Sodium 162 mmol/L (137-145); Total Protein 6.4 g/dL (6.3-8.2)
[2025-06-01 05:18] LABS: Band Neutrophils Percent 5 % (0-6); Eosinophils Absolute Manual 0.19 K/mm3 (0.02-0.50); Eosinophils Percent Manual 1 % (0-4); Lymphocytes Absolute Manual 3.68 K/mm3 (1.1-4.5); Lymphocytes Percent Manual 19.0 % (18-44); Monocytes Absolute Manual 0.19 K/mm3 (0.1-0.90); Monocytes Percent Manual 1 % (3-9); Neutrophils Absolute Manual 15.32 K/mm3 (1.3-6.7); Neutrophils Percent Manual 74 % (46-73); Total Cells Counted 100
[2025-06-01 05:19] LABS: Schistocytes None Seen
[2025-06-01] MEDS: metroNIDAZOLE 500 MG/ISO 100ML 500 MG/100 ML BAG 100 MG IVPB ×3 (05:27→23:21)
[2025-06-01 05:41] LABS: Thyroid Stimulating Hormone 0.410 uIU/mL (0.465-4.680)
[2025-06-01] MEDS: CENTRAL LINE FLUSH 10 ML IV PUSH ×3 (05:54→23:21)
[2025-06-01] MEDS: SODIUM CHLORIDE 0.45% 1,000 ML 50 ML IV CONT (06:16)
[2025-06-01] MEDS: DORNASE ALFA INH SOLN 1 MG/ML 2.5 ML AMP 2.5 MG INHALATION ×2 (07:41→20:14)
[2025-06-01] MEDS: MINERAL OIL/WHITE PETROLATUM OINTMENT 1 APPLIC EACH EYE ×2 (08:06→20:03)
[2025-06-01] MEDS: PANTOPRAZOLE SODIUM IV 40 MG VIAL IV PUSH ×2 (08:07→20:02)
--- NOTE | 2025-06-01 08:13 | P.CONPL_ITS ---
Assessment and Plan Assessment and plan (1) Pneumonia: Code(s): J18.9 - Pneumonia, unspecified organism Status: Acute Assessment and Plan: patient presents with acute respiratory failure with vomit witnessed in the mouth and airway during intubation. Patient with right middle lobe and right lower lobe collapse. Consult for bronchoscopy. Plan: Recommend bronchoscopy to assess for aspiration of a foreign body and if present remove any aspirated contents. I discussed risks and benefits with the POA Trae, , and he is in agreement to proceed. discussed with Dr. Partida History of Present Illness History of Present Illness Consult date: 06/01/25 Chief complaint: Hypoxemic,respiratory failure,aspiration,severe hy Narrative: 06/01/2025: This is a new pulmonary consult for bronchoscopy 60-year-old with a history of intellectual disability, schizoaffective disorder dysphagia with a PEG tube seizure disorder. 05/31/2025 patient presented from her snf facility with fever, hypoxia and altered mental status. In the emergency room she was hypotensive, tachycardic and tachypneic with frequent coughing. On 15 L non-rebreather she was hypoxic with sats of 73. patient had vomit in her mouth. Patient was intubated with vomit in the airway during intubation. Patient had a CT scan of the chest that demonstrated diffuse right lung nodular infiltrates with partial collapse of the right middle lobe and collapse of the right lower lobe. Patient was started on cefepime, Flagyl, DuoNebs q.6 hours, Mucomyst q.6 hours and dornase q.12 hours. 06/01/2025: Patient remains intubated, sedated with fentanyl Versed, on Levophed 12 and vasopressin 0.01. She is on CMV rate of 20 breathing 20, tidal volume 350 35% FiO2 and a PEEP of 8 with peak airway pressure of 20. ABG on these settings 7.. Chest x-ray with endotracheal tube left subclavian in place, right middle and lower lobe consolidation. DATA: 05/31/25: Clinical Indication: Sepsis, altered mental status CT Scan of the Chest, Abdomen, and Pelvis with Contrast: Technique: Contiguous sections were acquired throughout the chest, abdomen, and pelvis after intravenous administration of 100 cc of Omnipaque 350. Dose reduction technique was used on this scan by utilizing automated exposure control and iterative reconstruction technique. The dose-length product (DLP) was 302.45 mGy-cm. Comparison: 02/27/2025 Findings: There is no evidence of any significant mediastinal, hilar or axillary lymphadenopathy. The mediastinal soft tissues appear normal. No pulmonary embolus. No aortic aneurysm or dissection. There is no evidence of pleural or pericardial effusion. Bronchus intermedius and the right lower and middle lobe bronchi are opacified with fluid. There is dense, complete consolidation of the right middle and lower lobes with central air bronchograms. There innumerable tree-in-bud and centrilobular nodules in the right upper lobe. Left lung demonstrates probable mild left basilar atelectatic change. The liver, spleen, pancreas, gallbladder, right adrenal gland, and kidneys are within normal limits. 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 No evidence of aortic aneurysm. No lymphadenopathy. There is wall thickening of sigmoid colon and rectum. Possible additional mild wall thickening of ascending and descending colon. No bowel obstruction. No abscess or free air. Reed catheter present within the urinary bladder, some intraluminal air. No pelvic mass seen. No ascites. Impression: Complete right middle and lower lobe consolidation with a tree-in-bud and centrilobular nodules in the right upper lobe. Findings are compatible with extensive aspiration pneumonia, with fluid opacification of bronchus intermedius. Possible mild wall thickening extensively involving large bowel, as detailed above. Correlate for infectious/inflammatory colitis versus underdistention. Review of Systems 2 Review of Systems: ROS unobtainable: Yes unobtainable due to endotracheal tube PMFSH Past Medical History Medical History Intellectual disability Epilepsy Major depressive disorder Anxiety disorder Schizoaffective disorder Surgical History Surgical History Surgical history unknown Family History Family History Other Unknown family medical history Social History Social History Social History: Code status: Full code (per care home documentation) Smoking status: Unknown if ever smoked Alcohol intake: unknown Substance use: unknown Spiritual care concerns: No Meds Home Medications and Allergies Home Medications ?Medication ?Instructions ?Recorded ?Confirmed ?Type bupropion HCl 150 mg 24 hr tablet, 150 mg PO QAM 09/27/24 05/31/25 History extended release (Wellbutrin XL) lisinopril 10 mg tablet 10 mg PO DAILY 09/27/24 05/31/25 History valproic acid 250 mg capsule 750 mg PO HS 09/27/24 05/31/25 History acetaminophen 325 mg tablet 650 mg (2 x 325 mg) feeding tube 10/25/24 05/31/25 Rx Q4H PRN pain or fever #10 tabs alprazolam 0.5 mg tablet (Xanax) 0.5 mg feeding tube TID #10 tabs 10/25/24 05/31/25 Rx aripiprazole 20 mg tablet 20 mg feeding tube DAILY #10 tabs 10/25/24 05/31/25 Rx famotidine 20 mg tablet 20 mg feeding tube DAILY 05/31/25 05/31/25 History furosemide 40 mg tablet (Lasix) 40 mg PO DAILY 05/31/25 05/31/25 History guaifenesin 1,200 mg tablet, 1,200 mg PO BID 05/31/25 05/31/25 History extended release 12 hr (Mucinex) ipratropium 0.5 mg-albuterol 3 mg 3 ml inhalation Q6H PRN shortness 05/31/25 05/31/25 History (2.5 mg base)/3 mL nebulization of breath or wheezing soln loratadine 10 mg capsule (Allergy 10 mg PO DAILY 05/31/25 05/31/25 History Relief (loratadine)) Allergies Allergy/AdvReac Type Severity Reaction Status Date / Time No Known Allergies Allergy Verified 09/27/24 22:08 Vital Signs Vital Signs - 24 hr 05/31/25 08:39 05/31/25 08:45 05/31/25 08:47 Temperature Pulse Rate 67 72 66 Respiratory Rate 22 H 24 H Blood Pressure 137/123 H Pulse Oximetry Oxygen Delivery Fraction of Inspired Oxygen 05/31/25 08:47 05/31/25 09:00 05/31/25 09:02 Temperature Pulse Rate 66 69 65 Respiratory Rate 22 H Blood Pressure 137/123 H 69/40 L Pulse Oximetry Oxygen Delivery Fraction of Inspired Oxygen 05/31/25 09:10 05/31/25 09:30 05/31/25 09:36 Temperature Pulse Rate 65 67 66 Respiratory Rate Blood Pressure 68/57 L 127/70 127/70 Pulse Oximetry Oxygen Delivery Fraction of Inspired Oxygen 05/31/25 09:45 05/31/25 09:52 05/31/25 10:00 Temperature Pulse Rate 67 68 68 Respiratory Rate Blood Pressure 58/47 L 140/63 136/55 L Pulse Oximetry Oxygen Delivery Fraction of Inspired Oxygen 05/31/25 10:00 05/31/25 10:00 05/31/25 10:00 Temperature 37.9 C H Pulse Rate 68 68 68 Respiratory Rate 21 H 21 H Blood Pressure 135/55 L 136/55 L Pulse Oximetry 99 Oxygen Delivery Fraction of Inspired Oxygen 05/31/25 10:03 05/31/25 10:26 05/31/25 10:48 Temperature Pulse Rate 69 69 67 Respiratory Rate 21 H Blood Pressure 136/55 L Pulse Oximetry 97 Oxygen Delivery Mechanical Ventilation Fraction of Inspired Oxygen 60 05/31/25 10:55 05/31/25 11:23 05/31/25 11:26 Temperature Pulse Rate 67 68 67 Respiratory Rate 21 H Blood Pressure 132/58 L 133/76 Pulse Oximetry Oxygen Delivery Fraction of Inspired Oxygen 05/31/25 12:00 05/31/25 12:00 05/31/25 12:00 Temperature 38.1 C H Pulse Rate 68 68 68 Respiratory Rate 21 H 21 H Blood Pressure 124/72 124/72 Pulse Oximetry 97 Oxygen Delivery Fraction of Inspired Oxygen 05/31/25 12:00 05/31/25 12:00 05/31/25 12:00 Temperature Pulse Rate 68 68 68 Respiratory Rate 21 H 21 H Blood Pressure 124/72 Pulse Oximetry Oxygen Delivery Mechanical Ventilation Fraction of Inspired Oxygen 60 05/31/25 12:00 05/31/25 12:00 05/31/25 12:14 Temperature 38.0 C H Pulse Rate 68 Respiratory Rate Blood Pressure Pulse Oximetry Oxygen Delivery Fraction of Inspired Oxygen 60 05/31/25 12:42 05/31/25 12:51 05/31/25 12:52 Temperature Pulse Rate 68 69 69 Respiratory Rate 22 H 20 Blood Pressure 130/72 Pulse Oximetry Oxygen Delivery Fraction of Inspired Oxygen 05/31/25 13:20 05/31/25 13:35 05/31/25 13:52 Temperature Pulse Rate 68 71 72 Respiratory Rate 20 Blood Pressure 131/69 Pulse Oximetry 97 Oxygen Delivery Mechanical Ventilation Fraction of Inspired Oxygen 40 05/31/25 13:52 05/31/25 13:58 05/31/25 14:00 Temperature 38.2 C H Pulse Rate 72 72 Respiratory Rate 23 H Blood Pressure 127/77 Pulse Oximetry Oxygen Delivery Fraction of Inspired Oxygen 05/31/25 14:00 05/31/25 14:00 05/31/25 14:00 Temperature Pulse Rate 70 70 70 Respiratory Rate 21 H 22 H Blood Pressure 127/77 Pulse Oximetry Oxygen Delivery Fraction of Inspired Oxygen 05/31/25 14:00 05/31/25 14:00 05/31/25 14:04 Temperature Pulse Rate 70 70 72 Respiratory Rate 22 H Blood Pressure 127/77 127/77 Pulse Oximetry 95 Oxygen Delivery Fraction of Inspired Oxygen 05/31/25 14:16 05/31/25 15:09 05/31/25 16:00 Temperature Pulse Rate 72 69 69 Respiratory Rate Blood Pressure 127/77 136/62 125/68 Pulse Oximetry Oxygen Delivery Fraction of Inspired Oxygen 05/31/25 16:00 05/31/25 16:00 05/31/25 16:00 Temperature Pulse Rate 69 69 69 Respiratory Rate 22 H 22 H Blood Pressure 125/68 Pulse Oximetry Oxygen Delivery Fraction of Inspired Oxygen 05/31/25 16:00 05/31/25 16:00 05/31/25 16:00 Temperature 38.4 C H Pulse Rate 69 68 Respiratory Rate 22 H 22 H Blood Pressure 125/68 Pulse Oximetry 97 97 Oxygen Delivery Mechanical Ventilation Fraction of Inspired Oxygen 40 60 05/31/25 16:00 05/31/25 16:49 05/31/25 16:49 Temperature Pulse Rate 69 66 65 Respiratory Rate Blood Pressure 131/74 Pulse Oximetry 96 Oxygen Delivery Mechanical Ventilation Fraction of Inspired Oxygen 40 05/31/25 18:00 05/31/25 18:00 05/31/25 18:00 Temperature 36.3 C L Pulse Rate 60 60 60 Respiratory Rate 21 H Blood Pressure 130/61 130/61 Pulse Oximetry 98 Oxygen Delivery Fraction of Inspired Oxygen 05/31/25 18:00 05/31/25 18:00 05/31/25 18:00 Temperature Pulse Rate 60 60 60 Respiratory Rate 21 H 21 H Blood Pressure 130/61 Pulse Oximetry Oxygen Delivery Fraction of Inspired Oxygen 05/31/25 20:00 05/31/25 20:00 05/31/25 20:00 Temperature Pulse Rate 59 L 59 L 59 L Respiratory Rate 21 H Blood Pressure 142/68 H 142/68 H Pulse Oximetry Oxygen Delivery Fraction of Inspired Oxygen 05/31/25 20:00 05/31/25 20:00 05/31/25 20:00 Temperature Pulse Rate 59 L Respiratory Rate 21 H Blood Pressure Pulse Oximetry 98 Oxygen Delivery Mechanical Ventilation Fraction of Inspired Oxygen 35 30 05/31/25 20:00 05/31/25 20:01 05/31/25 20:08 Temperature 36.6 C Pulse Rate 61 60 57 L Respiratory Rate 20 Blood Pressure 142/68 H 142/68 H Pulse Oximetry 98 Oxygen Delivery Fraction of Inspired Oxygen 05/31/25 20:10 05/31/25 20:12 05/31/25 20:16 Temperature 36.6 C Pulse Rate 59 L 59 L 59 L Respiratory Rate 21 H 20 Blood Pressure 136/63 Pulse Oximetry 98 96 Oxygen Delivery Mechanical Ventilation Fraction of Inspired Oxygen 40 05/31/25 20:21 05/31/25 20:30 05/31/25 20:31 Temperature Pulse Rate 59 L 61 58 L Respiratory Rate 21 H Blood Pressure 136/63 130/71 Pulse Oximetry Oxygen Delivery Fraction of Inspired Oxygen 05/31/25 20:31 05/31/25 20:36 05/31/25 20:37 Temperature 36.6 C 36.6 C Pulse Rate 58 L 61 60 Respiratory Rate 20 20 Blood Pressure 130/71 137/68 137/68 Pulse Oximetry 97 97 Oxygen Delivery Fraction of Inspired Oxygen 05/31/25 20:45 05/31/25 20:46 05/31/25 21:01 Temperature 36.7 C 36.7 C 36.7 C Pulse Rate 63 61 61 Respiratory Rate 20 20 21 H Blood Pressure 128/67 129/65 Pulse Oximetry 97 97 97 Oxygen Delivery Fraction of Inspired Oxygen 05/31/25 21:16 05/31/25 21:31 05/31/25 21:31 Temperature 36.6 C 36.7 C Pulse Rate 59 L 58 L 58 L Respiratory Rate 20 20 Blood Pressure 99/56 L 117/68 117/68 Pulse Oximetry 95 96 Oxygen Delivery Fraction of Inspired Oxygen 05/31/25 21:47 05/31/25 21:53 05/31/25 21:53 Temperature 36.6 C Pulse Rate 58 L 58 L 58 L Respiratory Rate 20 22 H 22 H Blood Pressure 104/56 L Pulse Oximetry 95 Oxygen Delivery Fraction of Inspired Oxygen 05/31/25 22:00 05/31/25 22:00 05/31/25 22:00 Temperature Pulse Rate 58 L 58 L 58 L Respiratory Rate 20 20 Blood Pressure 89/50 L Pulse Oximetry Oxygen Delivery Fraction of Inspired Oxygen 05/31/25 22:00 05/31/25 22:00 05/31/25 22:01 Temperature 36.7 C Pulse Rate 58 L 58 L 57 L Respiratory Rate 20 Blood Pressure 89/50 L 89/50 L Pulse Oximetry 95 Oxygen Delivery Fraction of Inspired Oxygen 05/31/25 22:13 05/31/25 22:15 05/31/25 22:16 Temperature 36.6 C 36.6 C Pulse Rate 58 L 59 L 59 L Respiratory Rate 20 21 H Blood Pressure 81/49 L 81/45 L 81/45 L Pulse Oximetry 94 93 Oxygen Delivery Fraction of Inspired Oxygen 05/31/25 22:19 05/31/25 22:21 05/31/25 22:30 Temperature 36.6 C 36.5 C Pulse Rate 59 L 58 L 59 L Respiratory Rate 21 H 21 H 21 H Blood Pressure 88/56 L 91/56 L Pulse Oximetry 96 94 Oxygen Delivery Fraction of Inspired Oxygen 05/31/25 22:45 05/31/25 22:58 05/31/25 23:00 Temperature 36.5 C 36.4 C Pulse Rate 60 58 L 58 L Respiratory Rate 20 21 H Blood Pressure 85/53 L 85/53 L 90/63 L Pulse Oximetry 95 96 Oxygen Delivery Fraction of Inspired Oxygen 05/31/25 23:00 05/31/25 23:15 05/31/25 23:30 Temperature 36.4 C 36.4 C Pulse Rate 59 L 59 L 60 Respiratory Rate 21 H 21 H Blood Pressure 94/57 L 98/64 L Pulse Oximetry 95 96 95 Oxygen Delivery Mechanical Ventilation Fraction of Inspired Oxygen 35 05/31/25 23:45 06/01/25 00:00 06/01/25 00:00 Temperature 36.5 C Pulse Rate 58 L 73 73 Respiratory Rate 20 20 Blood Pressure 103/60 99/55 L Pulse Oximetry 96 Oxygen Delivery Fraction of Inspired Oxygen 06/01/25 00:00 06/01/25 00:00 06/01/25 00:00 Temperature Pulse Rate 73 73 Respiratory Rate 20 Blood Pressure 99/55 L Pulse Oximetry 94 Oxygen Delivery Mechanical Ventilation Fraction of Inspired Oxygen 35 06/01/25 00:00 06/01/25 00:00 06/01/25 00:00 Temperature 36.4 C L Pulse Rate 68 58 L Respiratory Rate 20 Blood Pressure 99/55 L Pulse Oximetry 94 Oxygen Delivery Fraction of Inspired Oxygen 30 06/01/25 00:17 06/01/25 00:30 06/01/25 00:46 Temperature 36.5 C 36.6 C 36.6 C Pulse Rate 58 L 60 59 L Respiratory Rate 20 20 20 Blood Pressure 98/66 L 101/58 L 102/63 Pulse Oximetry 97 96 97 Oxygen Delivery Fraction of Inspired Oxygen 06/01/25 01:01 06/01/25 01:13 06/01/25 01:19 Temperature 36.6 C Pulse Rate 59 L 60 61 Respiratory Rate 20 20 Blood Pressure 99/64 L 101/61 Pulse Oximetry 97 Oxygen Delivery Fraction of Inspired Oxygen 06/01/25 01:19 06/01/25 01:33 06/01/25 02:00 Temperature 36.5 C Pulse Rate 61 63 62 Respiratory Rate 20 20 Blood Pressure 101/61 114/66 Pulse Oximetry 98 Oxygen Delivery Fraction of Inspired Oxygen 06/01/25 02:00 06/01/25 02:00 06/01/25 02:00 Temperature Pulse Rate 62 62 62 Respiratory Rate 20 Blood Pressure 114/66 Pulse Oximetry Oxygen Delivery Fraction of Inspired Oxygen 06/01/25 02:00 06/01/25 02:00 06/01/25 02:00 Temperature Pulse Rate 62 62 60 Respiratory Rate 20 Blood Pressure 114/66 Pulse Oximetry 96 Oxygen Delivery Mechanical Ventilation Fraction of Inspired Oxygen 35 06/01/25 03:39 06/01/25 04:00 06/01/25 04:00 Temperature Pulse Rate 65 Respiratory Rate 21 H Blood Pressure Pulse Oximetry 92 Oxygen Delivery Mechanical Ventilation Fraction of Inspired Oxygen 35 30 06/01/25 04:00 06/01/25 04:00 06/01/25 04:00 Temperature 36.4 C Pulse Rate 71 71 71 Respiratory Rate 20 20 Blood Pressure 112/64 112/64 Pulse Oximetry 92 Oxygen Delivery Fraction of Inspired Oxygen 06/01/25 04:00 06/01/25 04:00 06/01/25 04:00 Temperature Pulse Rate 71 71 71 Respiratory Rate 20 Blood Pressure 112/64 Pulse Oximetry Oxygen Delivery Fraction of Inspired Oxygen 06/01/25 05:00 06/01/25 05:30 06/01/25 05:31 Temperature 36.2 C L Pulse Rate 58 L 58 L 57 L Respiratory Rate 21 H Blood Pressure 109/67 109/67 Pulse Oximetry 96 97 Oxygen Delivery Mechanical Ventilation Fraction of Inspired Oxygen 35 06/01/25 05:45 06/01/25 06:00 06/01/25 06:00 Temperature 36.2 C L 36.2 C L Pulse Rate 59 L 57 L 57 L Respiratory Rate 21 H 21 H Blood Pressure 124/74 116/73 Pulse Oximetry 98 98 Oxygen Delivery Fraction of Inspired Oxygen 06/01/25 06:00 06/01/25 06:00 06/01/25 06:00 Temperature Pulse Rate 57 L 57 L 57 L Respiratory Rate 21 H 21 H Blood Pressure 116/73 Pulse Oximetry Oxygen Delivery Fraction of Inspired Oxygen 06/01/25 06:00 06/01/25 06:00 06/01/25 07:38 Temperature 36.2 C L Pulse Rate 57 L 57 L 60 Respiratory Rate 21 H Blood Pressure 116/73 116/73 Pulse Oximetry 98 96 Oxygen Delivery Mechanical Ventilation Fraction of Inspired Oxygen 35 06/01/25 07:41 Temperature Pulse Rate 60 Respiratory Rate 21 H Blood Pressure Pulse Oximetry Oxygen Delivery Fraction of Inspired Oxygen Exam 2 Const: General: comfortable Orientation/consciousness: oriented to person, oriented to place and oriented to time Other: Intubated and sedated HENMT: Head: normal to inspection Ears: hearing grossly normal bilaterally Eyes: General: appearance normal, both eyes and all related structures Neck: Neck: normal visual inspection Chest: Chest palpation & inspection: normal inspection of the chest Resp: Effort & Inspection: normal respiratory effort and able to speak in complete sentences Auscultation: no crackles, no rales, no rhonchi, no wheezes and lung sounds not diminished Other: decreased breath sounds right base Cardio: Jugular venous distension: no JVD GI: Inspection: normal to inspection GI Palp: No abdominal tenderness O ther: peg in place Skin: General skin exam: normal color Neuro: Other: intubated, sedated with fentanyl and Versed Extrem: General: normal to inspection Psych: Appearance: grossly normal Results Laboratory Findings 06/01/25 04:19 06/01/25 04:19 ABG, PT/INR, D-dimer: ABG ABG pH 7.505 (7.350-7.450) H* 06/01/25 04:35 ABG pCO2 26.9 mmHg (35.0-45.0) L 06/01/25 04:35 ABG pO2 72.5 mmHg (80.0-100.0) L 06/01/25 04:35 ABG O2 Saturation 96.1 % (95.0-100.0) 06/01/25 04:35 PT/INR, D-dimer PT 23.1 Seconds (11.1-14.7) H D 06/01/25 04:19 INR 2.1 06/01/25 04:19 Abnormal lab findings: Abnormal Labs 05/30/25 05/31/25 05/31/25 23:45 00:12 00:35 WBC 25.1 H RBC 2.65 L Hgb 8.0 L Hct 28.2 L MCV 106.4 H MCHC 28.4 L RDW 15.9 H Plt Count MPV 12.0 H Neutrophils % (Manual) 83 H Band Neutrophils % 9 H Lymphocytes % (Manual) 5 L Monocytes % (Manual) Abs Neuts (Manual) 23.09 H PT 18.5 H APTT ABG pH ABG pCO2 ABG pO2 ABG HCO3 ABG O2 Content VBG pH 7.402 H* VBG pCO2 48.7 H VBG pO2 71.1 H Total Hemoglobin Sodium 174 H* Chloride 133 H Anion Gap 14 H BUN 83 H D Creatinine 2.82 H Estimated GFR 17 L Glucose 126 H POC Capillary Glucose Calcium 8.0 L Phosphorus AST 62 H Total Creatine Kinase C-Reactive Protein 15.9 H Total Protein 5.5 L Albumin 2.6 L TSH Urine Ketones Trace H Ur Blood (Man) 2+ H Leukocyte Esterase Rfl Trace H Urine RBC 21-50 H Crossmatch 05/31/25 05/31/25 05/31/25 02:08 05:09 05:57 WBC RBC Hgb Hct MCV MCHC RDW Plt Count MPV Neutrophils % (Manual) Band Neutrophils % Lymphocytes % (Manual) Monocytes % (Manual) Abs Neuts (Manual) PT APTT ABG pH 7.454 H ABG pCO2 30.8 L ABG pO2 ABG HCO3 21.1 L ABG O2 Content 12.7 L VBG pH VBG pCO2 VBG pO2 Total Hemoglobin 9.4 L Sodium 169 H* 167 H* Chloride 131 H 129 H Anion Gap 13 H BUN 83 H 85 H Creatinine 2.94 H 3.10 H Estimated GFR 16 L 15 L Glucose 155 H 188 H POC Capillary Glucose Calcium 7.9 L 8.1 L Phosphorus 4.8 H AST Total Creatine Kinase C-Reactive Protein Total Protein Albumin TSH Urine Ketones Ur Blood (Man) Leukocyte Esterase Rfl Urine RBC Crossmatch 05/31/25 05/31/25 05/31/25 06:06 09:23 11:16 WBC 32.1 H RBC 2.82 L Hgb 8.5 L Hct 29.1 L MCV 103.2 H MCHC 29.2 L RDW 15.6 H Plt Count 400 H MPV 11.7 H Neutrophils % (Manual) Band Neutrophils % 23 H Lymphocytes % (Manual) 10 L Monocytes % (Manual) Abs Neuts (Manual) 28.89 H PT APTT ABG pH ABG pCO2 ABG pO2 ABG HCO3 ABG O2 Content VBG pH VBG pCO2 VBG pO2 Total Hemoglobin Sodium 165 H* Chloride 127 H Anion Gap 16 H BUN 86 H Creatinine 3.03 H Estimated GFR 16 L Glucose 229 H POC Capillary Glucose 216 H Calcium 8.2 L Phosphorus AST Total Creatine Kinase 630 H C-Reactive Protein 25.8 H Total Protein Albumin TSH Urine Ketones Ur Blood (Man) Leukocyte Esterase Rfl Urine RBC Crossmatch 05/31/25 05/31/25 05/31/25 13:54 17:03 18:14 WBC RBC Hgb Hct MCV MCHC RDW Plt Count MPV Neutrophils % (Manual) Band Neutrophils % Lymphocytes % (Manual) Monocytes % (Manual) Abs Neuts (Manual) PT APTT ABG pH ABG pCO2 ABG pO2 ABG HCO3 ABG O2 Content VBG pH VBG pCO2 VBG pO2 Total Hemoglobin Sodium 164 H* 163 H* Chloride 126 H 127 H Anion Gap 15 H 14 H BUN 83 H 83 H Creatinine 2.66 H 2.56 H Estimated GFR 18 L 19 L Glucose 201 H 195 H POC Capillary Glucose 167 H Calcium Phosphorus AST Total Creatine Kinase C-Reactive Protein Total Protein Albumin TSH Urine Ketones Ur Blood (Man) Leukocyte Esterase Rfl Urine RBC Crossmatch 05/31/25 06/01/25 06/01/25 21:14 00:00 04:19 WBC 19.4 H RBC 2.25 L Hgb 6.9 L* Hct 22.4 L MCV MCHC 30.8 L RDW 15.6 H Plt Count MPV 12.2 H Neutrophils % (Manual) 74 H Band Neutrophils % Lymphocytes % (Manual) Monocytes % (Manual) 1 L Abs Neuts (Manual) 15.32 H PT 23.1 H D APTT 44.3 H ABG pH ABG pCO2 ABG pO2 ABG HCO3 ABG O2 Content VBG pH VBG pCO2 VBG pO2 Total Hemoglobin Sodium 162 H* 162 H* 162 H* Chloride 125 H 126 H 127 H Anion Gap 14 H 13 H BUN 80 H 80 H 81 H Creatinine 2.45 H 2.37 H 2.31 H Estimated GFR 20 L 21 L 21 L Glucose 195 H 147 H 125 H POC Capillary Glucose Calcium Phosphorus AST 73 H Total Creatine Kinase C-Reactive Protein Total Protein Albumin TSH 0.410 L Urine Ketones Ur Blood (Man) Leukocyte Esterase Rfl Urine RBC Crossmatch 06/01/25 06/01/25 04:35 05:36 WBC RBC Hgb Hct MCV MCHC RDW Plt Count MPV Neutrophils % (Manual) Band Neutrophils % Lymphocytes % (Manual) Monocytes % (Manual) Abs Neuts (Manual) PT APTT ABG pH 7.505 H* ABG pCO2 26.9 L ABG pO2 72.5 L ABG HCO3 20.7 L ABG O2 Content 10.6 L VBG pH VBG pCO2 VBG pO2 Total Hemoglobin 7.9 L Sodium Chloride Anion Gap BUN Creatinine Estimated GFR Glucose POC Capillary Glucose Calcium Phosphorus AST Total Creatine Kinase C-Reactive Protein Total Protein Albumin TSH Urine Ketones Ur Blood (Man) Leukocyte Esterase Rfl Urine RBC Crossmatch See Detail Diagnostic Findings Additional studies: ITS Impressions Chest X-Ray 05/31/25 05:40 Impression: Complete consolidation of the right lower lobe could reflect lobar pneumonia versus atelectasis. Correlate clinically. Chest X-Ray 05/31/25 05:40 Impression: Left subclavian line in satisfactory position. No pneumothorax. Persistent complete consolidation of the right lower lobe. Correlate for pneumonia versus possibly atelectasis. Chest X-Ray 05/31/25 05:41 Impression: NG tube side-port is distal esophagus. Further advancement into the stomach required. Additional support tubes in satisfactory position. Persistent complete right lower lobe consolidation. Abdomen X-Ray 05/31/25 05:42 Impression: NG tube side-port in the distal esophagus. Further advancement into the stomach advised by at least 8 cm. Chest/Abdomen/Pelvis CT 05/31/25 05:43 Impression: Complete right middle and lower lobe consolidation with a tree-in-bud and centrilobular nodules in the right upper lobe. Findings are compatible with extensive aspiration pneumonia, with fluid opacification of bronchus intermedius. Possible mild wall thickening extensively involving large bowel, as detailed above. Correlate for infectious/inflammatory colitis versus underdistention. Head CT 05/31/25 05:43 Impression: No intracranial abnormality seen. Sinus disease, as above. Abdomen X-Ray 05/31/25 09:28 IMPRESSION: 1: NG tube tip in the stomach. Renal Ultrasound 05/31/25 13:15 IMPRESSION: No abnormality seen in the kidneys. Reed's catheter seen in the urinary bladder. Chest X-Ray 06/01/25 06:07 Impression: Stable extensive right basilar consolidation and probable small right pleural effusion. Support tubes, as above.
--- NOTE | 2025-06-01 08:50 | P.PNINT_ITS ---
Progress Note: A&P Assessment and Plan (1) Septic shock: Code(s): A41.9 - Sepsis, unspecified organism; R65.21 - Severe sepsis with septic shock Status: Acute Assessment and Plan: Patient presented with hypoxemic respiratory failure, hypotension, tachycardia, tachypnea -received adequate amount of IV fluids despite which the blood pressures remained low -off vasopressin, Levophed being weaned. Maintain MAP > 65 mmHg for adequate end organ perfusion -leukocytosis along with fevers -lactic acid was normal -acute kidney injury -urine output and creatinine improving, -continue cefepime, metronidazole (05/31) -received 1 dose of vancomycin (05/31), MRSA PCR is negative, will discontinue vancomycin (05/31) -05/31: Sputum cultures obtained and pending -05/31: Blood cultures obtained and pending (2) Acute hypoxemic respiratory failure: Code(s): J96.01 - Acute respiratory failure with hypoxia Status: Acute Assessment and Plan: Patient presented with tachypnea, hypoxemia, GCS of 6, septic shock, acute hypoxemic respiratory failure, likely related to aspiration pneumonia as she was given her pills with some pudding and shortly after that patient was found hypoxic with hypotension and febrile at the nursing facility. Patient does have a PEG tube in place -05/31: Intubated in the ER -continue mechanical ventilation, CMV mode of ventilation, -ABGs, CT chest and chest x-ray reviewed: Ventilator adjusted -sedated with fentany and Versed infusion, maintain RASS of 0 to -2 -daily SBT and SAT -06/01: discussed with pulmonology, recommended doing a bronchoscopy since chest x-ray this morning shows extensive right basilar consolidated likely related to aspiration (3) Aspiration pneumonia: Code(s): J69.0 - Pneumonitis due to inhalation of food and vomit Status: Acute Assessment and Plan: Continue antibiotics as above -06/01: Bronchoscopy scheduled for today (4) Acute renal failure: Code(s): N17.9 - Acute kidney failure, unspecified Status: Acute Assessment and Plan: Acute kidney injury, low urine output could be related to hypoxia, hypotension, ATN -creatinine on admission was 2.82, (baseline creatinine 0.6-0.9 in February of 2025) -patient has been adequately fluid-resuscitated -continue 0.45% NS -nephrology has been consulted -obtain renal ultrasound, CK level, serum and urine osmolality, urine eosinophils, urine lytes -continue to monitor renal function, electrolytes and urine output -avoid nephrotoxic medications (5) Electrolyte abnormality: Code(s): E87.8 - Other disorders of electrolyte and fluid balance, not elsewhere classified Status: Acute Assessment and Plan: HYPERNATREMIA: Could be related to dehydration decreased oral intake, insensible losses. Presented with a sodium level of 174 on admission -sodium levels being managed by Nephrology, remains on NS 0.45% at 50 mL/hour -this morning sodium levels are 162 -free water deficit is roughly between 5.5-6.0 L -nephrology has been consulted -patient will also on free water flushes at 100 mL Q 4 hours per Nephrology (6) Anemia: Code(s): D64.9 - Anemia, unspecified Status: Acute Assessment and Plan: 06/01: Patient dropped hemoglobin to 6.9 from 8.5 yesterday -06/01: will transfuse 1 unit of packed RBCs -check vitamin B12, folic acid, stool occult, iron panel -GI consult as patient is having coffee-ground drainage in her OG tube Plan DVT prophylaxis: Hold heparin subQ due to anemia, will place SCDs Stress ulcer prophylaxis: Protonix IV q.12 hours Nutrition: Will hold tube feeds until GI evaluate Code Status: Full Code Critical Care Time Spent: 41 minutes Due to a high probability of clinically significant, life threatening deterioration, the patient required my highest level of preparedness to intervene emergently and I personally spent this critical care time directly and personally managing the patient. This critical care time included obtaining a history; examining the patient; pulse oximetry; ordering and review of studies; arranging urgent treatment with development of a management plan; evaluation of patient's response to treatment; frequent reassessment; and discussions with other providers. It was exclusive of separately billable procedures and treating other patients and teaching time. Please see Assessment and Plan section and the rest of the note for further information on patient assessment and treatment This dictation may have been done utilizing a voice recognition system. Attempts have been made to correct errors. However, there may be uncorrected grammatical, spelling, and recognitions errors present. Subjective Date/time seen: 06/01/25 08:50 Interval history: Reason for consult: Septic shock, Pneumonia, likely aspiration, acute kidney injury, altered mental status, anemia 06/01/2025: Patient seen and examined the ICU, remains intubated on CMV mode of ventilation, peep of 8, 35% FiO2. Sedated with fentanyl and Versed infusion. Off vasopressin, Levophed is being weaned. Urine output has been adequate, creatinine improving. Patient's TSH level was 0.41 which is low. WBC count trending down. Hemoglobin was 6.9 this morning (8.5 on 05/31) Review of Systems Review of Systems: ROS unobtainable: Yes unobtainable due to endotracheal tube and unobtainable due to medical condition Exam Narrative: General: Intubated and sedated, in no acute distress HEENT:? Pupils are pinpoint and sluggish, sclera is clear, ETT in place Neck:? Supple Respiratory:? Coarse breath sounds on right > left, no wheezing, adequate air entry Cardiac:? S1-S2 is normal, regular rate and rhythm Abdomen:? Soft, nontender, nondistended, PEG tube in placed, hypoactive bowel sounds Extremities:? Trace edema, palpable pedal pulse Neuro:? Patient is intubated, sedated, does not open her eyes to name of follows simple commands Skin:? Excoriations and scratch issa noted on the abdominal on the umbilicus, old healing wounds on the toes Psych:? Unable to assess at this time Objective Data Vital Signs Vital Signs: Vital Signs - 24 hr 05/31/25 09:00 05/31/25 09:02 05/31/25 09:10 Temperature Pulse Rate 69 65 65 Respiratory Rate 22 H Blood Pressure 69/40 L 68/57 L Pulse Oximetry Oxygen Delivery Fraction of Inspired Oxygen 05/31/25 09:30 05/31/25 09:36 05/31/25 09:45 Temperature Pulse Rate 67 66 67 Respiratory Rate Blood Pressure 127/70 127/70 58/47 L Pulse Oximetry Oxygen Delivery Fraction of Inspired Oxygen 05/31/25 09:52 05/31/25 10:00 05/31/25 10:00 Temperature Pulse Rate 68 68 68 Respiratory Rate 21 H Blood Pressure 140/63 136/55 L Pulse Oximetry Oxygen Delivery Fraction of Inspired Oxygen 05/31/25 10:00 05/31/25 10:00 05/31/25 10:03 Temperature 100.2 F H Pulse Rate 68 68 69 Respiratory Rate 21 H Blood Pressure 135/55 L 136/55 L 136/55 L Pulse Oximetry 99 Oxygen Delivery Fraction of Inspired Oxygen 05/31/25 10:26 05/31/25 10:48 05/31/25 10:55 Temperature Pulse Rate 69 67 67 Respiratory Rate 21 H Blood Pressure 132/58 L Pulse Oximetry 97 Oxygen Delivery Mechanical Ventilation Fraction of Inspired Oxygen 60 05/31/25 11:23 05/31/25 11:26 05/31/25 12:00 Temperature 100.6 F H Pulse Rate 68 67 68 Respiratory Rate 21 H 21 H Blood Pressure 133/76 124/72 Pulse Oximetry 97 Oxygen Delivery Fraction of Inspired Oxygen 05/31/25 12:00 05/31/25 12:00 05/31/25 12:00 Temperature Pulse Rate 68 68 68 Respiratory Rate 21 H Blood Pressure 124/72 124/72 Pulse Oximetry Oxygen Delivery Fraction of Inspired Oxygen 05/31/25 12:00 05/31/25 12:00 05/31/25 12:00 Temperature Pulse Rate 68 68 68 Respiratory Rate 21 H 21 H Blood Pressure Pulse Oximetry Oxygen Delivery Mechanical Ventilation Fraction of Inspired Oxygen 60 05/31/25 12:00 05/31/25 12:14 05/31/25 12:42 Temperature 100.4 F H Pulse Rate 68 Respiratory Rate 22 H Blood Pressure Pulse Oximetry Oxygen Delivery Fraction of Inspired Oxygen 60 05/31/25 12:51 05/31/25 12:52 05/31/25 13:20 Temperature Pulse Rate 69 69 68 Respiratory Rate 20 20 Blood Pressure 130/72 Pulse Oximetry Oxygen Delivery Fraction of Inspired Oxygen 05/31/25 13:35 05/31/25 13:52 05/31/25 13:52 Temperature Pulse Rate 71 72 72 Respiratory Rate 23 H Blood Pressure 131/69 Pulse Oximetry 97 Oxygen Delivery Mechanical Ventilation Fraction of Inspired Oxygen 40 05/31/25 13:58 05/31/25 14:00 05/31/25 14:00 Temperature 100.7 F H Pulse Rate 72 70 Respiratory Rate 21 H Blood Pressure 127/77 Pulse Oximetry Oxygen Delivery Fraction of Inspired Oxygen 05/31/25 14:00 05/31/25 14:00 05/31/25 14:00 Temperature Pulse Rate 70 70 70 Respiratory Rate 22 H Blood Pressure 127/77 Pulse Oximetry Oxygen Delivery Fraction of Inspired Oxygen 05/31/25 14:00 05/31/25 14:04 05/31/25 14:16 Temperature Pulse Rate 70 72 72 Respiratory Rate 22 H Blood Pressure 127/77 127/77 127/77 Pulse Oximetry 95 Oxygen Delivery Fraction of Inspired Oxygen 05/31/25 15:09 05/31/25 16:00 05/31/25 16:00 Temperature Pulse Rate 69 69 69 Respiratory Rate 22 H Blood Pressure 136/62 125/68 Pulse Oximetry Oxygen Delivery Fraction of Inspired Oxygen 05/31/25 16:00 05/31/25 16:00 05/31/25 16:00 Temperature 101.1 F H Pulse Rate 69 69 69 Respiratory Rate 22 H 22 H Blood Pressure 125/68 125/68 Pulse Oximetry 97 Oxygen Delivery Fraction of Inspired Oxygen 05/31/25 16:00 05/31/25 16:00 05/31/25 16:00 Temperature Pulse Rate 68 69 Respiratory Rate 22 H Blood Pressure Pulse Oximetry 97 Oxygen Delivery Mechanical Ventilation Fraction of Inspired Oxygen 40 60 05/31/25 16:49 05/31/25 16:49 05/31/25 18:00 Temperature Pulse Rate 66 65 60 Respiratory Rate Blood Pressure 131/74 Pulse Oximetry 96 Oxygen Delivery Mechanical Ventilation Fraction of Inspired Oxygen 40 05/31/25 18:00 05/31/25 18:00 05/31/25 18:00 Temperature 97.3 F L Pulse Rate 60 60 60 Respiratory Rate 21 H 21 H Blood Pressure 130/61 130/61 Pulse Oximetry 98 Oxygen Delivery Fraction of Inspired Oxygen 05/31/25 18:00 05/31/25 18:00 05/31/25 20:00 Temperature Pulse Rate 60 60 59 L Respiratory Rate 21 H Blood Pressure 130/61 142/68 H Pulse Oximetry Oxygen Delivery Fraction of Inspired Oxygen 05/31/25 20:00 05/31/25 20:00 05/31/25 20:00 Temperature Pulse Rate 59 L 59 L 59 L Respiratory Rate 21 H 21 H Blood Pressure 142/68 H Pulse Oximetry Oxygen Delivery Fraction of Inspired Oxygen 05/31/25 20:00 05/31/25 20:00 05/31/25 20:00 Temperature Pulse Rate 61 Respiratory Rate Blood Pressure Pulse Oximetry 98 Oxygen Delivery Mechanical Ventilation Fraction of Inspired Oxygen 35 30 05/31/25 20:01 05/31/25 20:08 05/31/25 20:10 Temperature 97.9 F Pulse Rate 60 57 L 59 L Respiratory Rate 20 Blood Pressure 142/68 H 142/68 H Pulse Oximetry 98 98 Oxygen Delivery Mechanical Ventilation Fraction of Inspired Oxygen 40 05/31/25 20:12 05/31/25 20:16 05/31/25 20:21 Temperature 97.9 F Pulse Rate 59 L 59 L 59 L Respiratory Rate 21 H 20 Blood Pressure 136/63 136/63 Pulse Oximetry 96 Oxygen Delivery Fraction of Inspired Oxygen 05/31/25 20:30 05/31/25 20:31 05/31/25 20:31 Temperature 97.9 F Pulse Rate 61 58 L 58 L Respiratory Rate 21 H 20 Blood Pressure 130/71 130/71 Pulse Oximetry 97 Oxygen Delivery Fraction of Inspired Oxygen 05/31/25 20:36 05/31/25 20:37 05/31/25 20:45 Temperature 97.9 F 98.0 F Pulse Rate 61 60 63 Respiratory Rate 20 20 Blood Pressure 137/68 137/68 Pulse Oximetry 97 97 Oxygen Delivery Fraction of Inspired Oxygen 05/31/25 20:46 05/31/25 21:01 05/31/25 21:16 Temperature 98.0 F 98.0 F 97.8 F Pulse Rate 61 61 59 L Respiratory Rate 20 21 H 20 Blood Pressure 128/67 129/65 99/56 L Pulse Oximetry 97 97 95 Oxygen Delivery Fraction of Inspired Oxygen 05/31/25 21:31 05/31/25 21:31 05/31/25 21:47 Temperature 98.0 F 97.9 F Pulse Rate 58 L 58 L 58 L Respiratory Rate 20 20 Blood Pressure 117/68 117/68 104/56 L Pulse Oximetry 96 95 Oxygen Delivery Fraction of Inspired Oxygen 05/31/25 21:53 05/31/25 21:53 05/31/25 22:00 Temperature Pulse Rate 58 L 58 L 58 L Respiratory Rate 22 H 22 H Blood Pressure 89/50 L Pulse Oximetry Oxygen Delivery Fraction of Inspired Oxygen 05/31/25 22:00 05/31/25 22:00 05/31/25 22:00 Temperature Pulse Rate 58 L 58 L 58 L Respiratory Rate 20 20 Blood Pressure 89/50 L Pulse Oximetry Oxygen Delivery Fraction of Inspired Oxygen 05/31/25 22:00 05/31/25 22:01 05/31/25 22:13 Temperature 98.0 F 97.9 F Pulse Rate 58 L 57 L 58 L Respiratory Rate 20 20 Blood Pressure 89/50 L 81/49 L Pulse Oximetry 95 94 Oxygen Delivery Fraction of Inspired Oxygen 05/31/25 22:15 05/31/25 22:16 05/31/25 22:19 Temperature 97.9 F Pulse Rate 59 L 59 L 59 L Respiratory Rate 21 H 21 H Blood Pressure 81/45 L 81/45 L Pulse Oximetry 93 Oxygen Delivery Fraction of Inspired Oxygen 05/31/25 22:21 05/31/25 22:30 05/31/25 22:45 Temperature 97.8 F 97.7 F 97.7 F Pulse Rate 58 L 59 L 60 Respiratory Rate 21 H 21 H 20 Blood Pressure 88/56 L 91/56 L 85/53 L Pulse Oximetry 96 94 95 Oxygen Delivery Fraction of Inspired Oxygen 05/31/25 22:58 05/31/25 23:00 05/31/25 23:00 Temperature 97.6 F Pulse Rate 58 L 58 L 59 L Respiratory Rate 21 H Blood Pressure 85/53 L 90/63 L Pulse Oximetry 96 95 Oxygen Delivery Mechanical Ventilation Fraction of Inspired Oxygen 35 05/31/25 23:15 05/31/25 23:30 05/31/25 23:45 Temperature 97.6 F 97.6 F 97.7 F Pulse Rate 59 L 60 58 L Respiratory Rate 21 H 21 H 20 Blood Pressure 94/57 L 98/64 L 103/60 Pulse Oximetry 96 95 96 Oxygen Delivery Fraction of Inspired Oxygen 06/01/25 00:00 06/01/25 00:00 06/01/25 00:00 Temperature Pulse Rate 73 73 73 Respiratory Rate 20 20 Blood Pressure 99/55 L Pulse Oximetry Oxygen Delivery Fraction of Inspired Oxygen 06/01/25 00:00 06/01/25 00:00 06/01/25 00:00 Temperature Pulse Rate 73 Respiratory Rate Blood Pressure 99/55 L Pulse Oximetry 94 Oxygen Delivery Mechanical Ventilation Fraction of Inspired Oxygen 35 30 06/01/25 00:00 06/01/25 00:00 06/01/25 00:17 Temperature 97.5 F L 97.7 F Pulse Rate 68 58 L 58 L Respiratory Rate 20 20 Blood Pressure 99/55 L 98/66 L Pulse Oximetry 94 97 Oxygen Delivery Fraction of Inspired Oxygen 06/01/25 00:30 06/01/25 00:46 06/01/25 01:01 Temperature 97.8 F 97.8 F 97.8 F Pulse Rate 60 59 L 59 L Respiratory Rate 20 20 20 Blood Pressure 101/58 L 102/63 99/64 L Pulse Oximetry 96 97 97 Oxygen Delivery Fraction of Inspired Oxygen 06/01/25 01:13 06/01/25 01:19 06/01/25 01:19 Temperature Pulse Rate 60 61 61 Respiratory Rate 20 Blood Pressure 101/61 101/61 Pulse Oximetry Oxygen Delivery Fraction of Inspired Oxygen 06/01/25 01:33 06/01/25 02:00 06/01/25 02:00 Temperature 97.7 F Pulse Rate 63 62 62 Respiratory Rate 20 20 Blood Pressure 114/66 Pulse Oximetry 98 Oxygen Delivery Fraction of Inspired Oxygen 06/01/25 02:00 06/01/25 02:00 06/01/25 02:00 Temperature Pulse Rate 62 62 62 Respiratory Rate 20 20 Blood Pressure 114/66 Pulse Oximetry Oxygen Delivery Fraction of Inspired Oxygen 06/01/25 02:00 06/01/25 02:00 06/01/25 03:39 Temperature Pulse Rate 62 60 65 Respiratory Rate 21 H Blood Pressure 114/66 Pulse Oximetry 96 Oxygen Delivery Mechanical Ventilation Fraction of Inspired Oxygen 35 06/01/25 04:00 06/01/25 04:00 06/01/25 04:00 Temperature 97.6 F Pulse Rate 71 Respiratory Rate 20 Blood Pressure 112/64 Pulse Oximetry 92 92 Oxygen Delivery Mechanical Ventilation Fraction of Inspired Oxygen 35 30 06/01/25 04:00 06/01/25 04:00 06/01/25 04:00 Temperature Pulse Rate 71 71 71 Respiratory Rate 20 20 Blood Pressure 112/64 Pulse Oximetry Oxygen Delivery Fraction of Inspired Oxygen 06/01/25 04:00 06/01/25 04:00 06/01/25 05:00 Temperature Pulse Rate 71 71 58 L Respiratory Rate Blood Pressure 112/64 Pulse Oximetry 96 Oxygen Delivery Mechanical Ventilation Fraction of Inspired Oxygen 35 06/01/25 05:30 06/01/25 05:31 06/01/25 05:45 Temperature 97.2 F L 97.1 F L Pulse Rate 58 L 57 L 59 L Respiratory Rate 21 H 21 H Blood Pressure 109/67 109/67 124/74 Pulse Oximetry 97 98 Oxygen Delivery Fraction of Inspired Oxygen 06/01/25 06:00 06/01/25 06:00 06/01/25 06:00 Temperature 97.2 F L Pulse Rate 57 L 57 L 57 L Respiratory Rate 21 H Blood Pressure 116/73 116/73 Pulse Oximetry 98 Oxygen Delivery Fraction of Inspired Oxygen 06/01/25 06:00 06/01/25 06:00 06/01/25 06:00 Temperature Pulse Rate 57 L 57 L 57 L Respiratory Rate 21 H 21 H Blood Pressure 116/73 Pulse Oximetry Oxygen Delivery Fraction of Inspired Oxygen 06/01/25 06:00 06/01/25 07:38 06/01/25 07:41 Temperature 97.2 F L Pulse Rate 57 L 60 60 Respiratory Rate 21 H 21 H Blood Pressure 116/73 Pulse Oximetry 98 96 Oxygen Delivery Mechanical Ventilation Fraction of Inspired Oxygen 35 06/01/25 08:00 06/01/25 08:00 06/01/25 08:00 Temperature 97.8 F Pulse Rate 63 63 63 Respiratory Rate 20 20 Blood Pressure 116/60 116/60 Pulse Oximetry 96 Oxygen Delivery Fraction of Inspired Oxygen 06/01/25 08:00 06/01/25 08:00 Temperature Pulse Rate 63 63 Respiratory Rate 20 Blood Pressure 116/60 Pulse Oximetry Oxygen Delivery Fraction of Inspired Oxygen Intake/Output Intake/Output: Intake & Output 05/29/25 05/30/25 05/31/25 06/01/25 23:59 23:59 23:59 23:59 Intake Total 7.6 3924.8 350.3 Output Total 425 790 Balance 7.6 3499.8 -439.7 Meds/Results Medications: Active Medications Generic Name Dose Route Start Last Admin Trade Name Freq PRN Reason Stop Dose Admin Acetaminophen 650 mg 05/31/25 07:12 05/31/25 12:14 Acetaminophen Elixir 325 Mg/10.15 Ml Udc PO 650 mg Q6H PRN Administration Mild Pain (1-3) or Fever Acetylcysteine 200 mg 05/31/25 14:00 06/01/25 07:40 Acetylcysteine 20% Inhal Soln 800 Mg/4 Ml Vial INHALATION 200 mg Q6HRT MARLON Administration Albuterol/Ipratropium 3 ml 05/31/25 14:00 06/01/25 07:41 Ipratropium 0.5 Mg/Albuterol Sulfate 2.5 Mg Ampul.Neb 3 Ml INHALATION 3 ml Q6HRT MARLON Administration Dextrose 12.5 gm 05/31/25 10:14 Dextrose 50% 25 Gm/50 Ml Syringe IV PUSH PRN PRN Hypoglycemia Protocol Dornase Merlin 2.5 mg 05/31/25 11:30 06/01/25 07:41 Dornase Merlin Inh Soln 1 Mg/Ml 2.5 Ml Amp INHALATION 2.5 mg Q12HRT MARLON Administration Glucagon 1 mg 05/31/25 10:14 Glucagon For Inj 1 Mg Vial IM PRN PRN Hypoglycemia Protocol Glucose 15 gm 05/31/25 10:14 Glucose Oral Gel 15 Gm Of Glucse In 37.5 Gm Tube PO PRN PRN Hypoglycemia Protocol Heparin Sodium (Porcine) 5,000 units 05/31/25 09:00 05/31/25 20:24 Heparin Sodium 5,000 Units/Ml Vial SUB-Q 5,000 units Q12HR MARLON Administration Norepinephrine Bitartrate 8 mg in 250 mls @ 22.5 mls/hr 05/30/25 23:25 06/01/25 08:00 Levophed 8 Mg/D5w 250 Ml IV CONT 12 mcg/min .Q11H7M MARLON 22.5 mls/hr Titration Protocol 12 MCG/MIN Vasopressin 100 units/ 100 mls @ 0 mls/hr 05/30/25 23:45 06/01/25 08:00 Dextrose IV CONT 0 units/min .Q0M MARLON 0 mls/hr Titration Protocol 0 UNITS/MIN Fentanyl Citrate 2,500 mcg in 250 mls @ 12.5 mls/hr 05/31/25 03:21 06/01/25 08:00 Fentanyl 2,500 Mcg/Ns 250 Ml IV CONT 125 mcg/hr .Q20H MARLON 12.5 mls/hr Titration Protocol 125 MCG/HR Metronidazole 500 mg in 100 mls @ 100 mls/hr 05/31/25 13:00 06/01/25 05:27 Flagyl 500 Mg/Iso Soln 100 Ml IVPB 100 mls/hr Q8HR MARLON Administration Cefepime HCl 2 gm/ Sodium 50 mls @ 100 mls/hr 06/01/25 03:00 06/01/25 03:24 Chloride IVPB 100 mls/hr Q24H MARLON Administration Midazolam HCl 100 mg in 100 mls @ 3 mls/hr 05/31/25 10:30 06/01/25 08:00 Versed 100 Mg/Ns 100 Ml IV CONT 3 mg/hr .[id number] MARLON 3 mls/hr Titration Protocol 3 MG/HR Dextrose 1,000 mls @ 100 mls/hr 05/31/25 10:14 Dextrose 5% 1,000 Ml IVPB PRN PRN Hypoglycemia Protocol Sodium Chloride 250 mls @ 30 mls/hr 06/01/25 05:59 Normal Saline Iv IV CONT 06/01/25 14:18 .Q8H20M STA Sodium Chloride 1,000 mls @ 50 mls/hr 06/01/25 06:05 06/01/25 06:16 Sodium Chloride 0.45% IV CONT 50 mls/hr .Q20H MARLON Administration Insulin Aspart 2 - 5 units 05/31/25 12:00 06/01/25 05:15 Insulin Aspart (*Bkc) 100 Units/Ml SUB-Q Not Given Q6HR MARLON Protocol Multi-Ingred Cream/Lotion/Oil/Oint 1 applic 05/31/25 21:00 06/01/25 08:06 Mineral Oil/White Petrolatum Ointment EACH EYE 1 applic Q12HR MARLON Administration Pantoprazole Sodium 40 mg 05/31/25 09:00 06/01/25 08:07 Pantoprazole Sodium Iv 40 Mg Vial IV PUSH 40 mg Q12HR MARLON Administration Sodium Chloride 10 ml 05/31/25 06:00 06/01/25 05:54 Central Line Flush IV PUSH 10 ml Q8HR MARLON Administration Sodium Chloride 20 ml 05/30/25 23:54 Central Line Flush IV PUSH PRN PRN after blood draws Valproate Sodium 750 mg 06/01/25 21:00 Valproic Acid Liq 250 Mg/5 Ml Oral Solution Udc PO HS MARLON Radiology Results: ITS Impressions Chest/Abdomen/Pelvis CT 05/31/25 05:43 Impression: Complete right middle and lower lobe consolidation with a tree-in-bud and centrilobular nodules in the right upper lobe. Findings are compatible with extensive aspiration pneumonia, with fluid opacification of bronchus intermedius. Possible mild wall thickening extensively involving large bowel, as detailed above. Correlate for infectious/inflammatory colitis versus underdistention. Head CT 05/31/25 05:43 Impression: No intracranial abnormality seen. Sinus disease, as above. Abdomen X-Ray 05/31/25 09:28 IMPRESSION: 1: NG tube tip in the stomach. Renal Ultrasound 05/31/25 13:15 IMPRESSION: No abnormality seen in the kidneys. Reed's catheter seen in the urinary bladder. Chest X-Ray 06/01/25 06:07 Impression: Stable extensive right basilar consolidation and probable small right pleural effusion. Support tubes, as above. Labs Labs: Laboratory Results - last 24 hr 05/31/25 05/31/25 05/31/25 09:23 11:16 13:54 WBC RBC Hgb Hct MCV MCH MCHC RDW Plt Count MPV Immature Gran % (Auto) Neut % (Auto) Lymph % (Auto) [place] % (Auto) Eos % (Auto) Baso % (Auto) Lymph # (Auto) [place] # (Auto) Eos # (Auto) Baso # (Auto) Abs Immat Gran (auto) Absolute Neuts (auto) Absolute Nucleated RBC Total Counted Neutrophils % (Manual) Band Neutrophils % Lymphocytes % (Manual) Monocytes % (Manual) Eosinophils % (Manual) Nucleated RBC % Abs Neuts (Manual) Abs Lymphs (Manual) Abs Monocytes (Manual) Absolute Eos (Manual) Nucleated RBCs Platelet Estimate Schistocytes PT INR APTT Puncture Site ABG pH ABG pCO2 ABG pO2 ABG PO2/FiO2 Ratio ABG HCO3 ABG O2 Saturation ABG O2 Content ABG Base Excess A-a Gradient Oxyhemoglobin Carboxyhemoglobin Methemoglobin Reduced Hemoglobin Total Hemoglobin O2 Delivery Device O2 Liters/Min Minute Volume Vent Rate Vent Mode FiO2 Tidal Volume PEEP Peak Inspir Pressure Pressure Support Sodium 165 H* 164 H* Potassium 4.0 3.7 Chloride 127 H 126 H Carbon Dioxide 22 23 Anion Gap 16 H 15 H BUN 86 H 83 H Creatinine 3.03 H 2.66 H Estim Creat Clear Calc 13 17 Estimated GFR 16 L 18 L Glucose 229 H 201 H POC Capillary Glucose 216 H Calcium 8.2 L 8.4 Phosphorus Magnesium Total Bilirubin AST ALT Alkaline Phosphatase Total Creatine Kinase 630 H C-Reactive Protein 25.8 H Total Protein Albumin Lipase TSH Urine Eosinophils None seen Ur Random Sodium 67 Ur Random Urea Urine Creatinine 94.2 Blood Type Antibody Screen Crossmatch 05/31/25 05/31/25 05/31/25 17:03 18:14 21:14 WBC RBC Hgb Hct MCV MCH MCHC RDW Plt Count MPV Immature Gran % (Auto) Neut % (Auto) Lymph % (Auto) [place] % (Auto) Eos % (Auto) Baso % (Auto) Lymph # (Auto) [place] # (Auto) Eos # (Auto) Baso # (Auto) Abs Immat Gran (auto) Absolute Neuts (auto) Absolute Nucleated RBC Total Counted Neutrophils % (Manual) Band Neutrophils % Lymphocytes % (Manual) Monocytes % (Manual) Eosinophils % (Manual) Nucleated RBC % Abs Neuts (Manual) Abs Lymphs (Manual) Abs Monocytes (Manual) Absolute Eos (Manual) Nucleated RBCs Platelet Estimate Schistocytes PT INR APTT Puncture Site ABG pH ABG pCO2 ABG pO2 ABG PO2/FiO2 Ratio ABG HCO3 ABG O2 Saturation ABG O2 Content ABG Base Excess A-a Gradient Oxyhemoglobin Carboxyhemoglobin Methemoglobin Reduced Hemoglobin Total Hemoglobin O2 Delivery Device O2 Liters/Min Minute Volume Vent Rate Vent Mode FiO2 Tidal Volume PEEP Peak Inspir Pressure Pressure Support Sodium 163 H* 162 H* Potassium 3.7 3.6 Chloride 127 H 125 H Carbon Dioxide 22 23 Anion Gap 14 H 14 H BUN 83 H 80 H Creatinine 2.56 H 2.45 H Estim Creat Clear Calc 17 18 Estimated GFR 19 L 20 L Glucose 195 H 195 H POC Capillary Glucose 167 H Calcium 8.6 8.7 Phosphorus Magnesium Total Bilirubin AST ALT Alkaline Phosphatase Total Creatine Kinase C-Reactive Protein Total Protein Albumin Lipase TSH Urine Eosinophils Ur Random Sodium Ur Random Urea Urine Creatinine Blood Type Antibody Screen Crossmatch 05/31/25 06/01/25 06/01/25 22:33 00:00 04:19 WBC 19.4 H RBC 2.25 L Hgb 6.9 L* Hct 22.4 L MCV 99.6 MCH 30.7 MCHC 30.8 L RDW 15.6 H Plt Count 255 MPV 12.2 H Immature Gran % (Auto) Not Reportable Neut % (Auto) Not Reportable Lymph % (Auto) Not Reportable [place] % (Auto) Not Reportable Eos % (Auto) Not Reportable Baso % (Auto) Not Reportable Lymph # (Auto) Not Reportable [place] # (Auto) Not Reportable Eos # (Auto) Not Reportable Baso # (Auto) Not Reportable Abs Immat Gran (auto) Not Reportable Absolute Neuts (auto) Not Reportable Absolute Nucleated RBC Not Reportable Total Counted 100 Neutrophils % (Manual) 74 H Band Neutrophils % 5 Lymphocytes % (Manual) 19.0 Monocytes % (Manual) 1 L Eosinophils % (Manual) 1 Nucleated RBC % Not Reportable Abs Neuts (Manual) 15.32 H Abs Lymphs (Manual) 3.68 Abs Monocytes (Manual) 0.19 Absolute Eos (Manual) 0.19 Nucleated RBCs 1 Platelet Estimate Adequate Schistocytes None seen PT 23.1 H D INR 2.1 APTT 44.3 H Puncture Site ABG pH ABG pCO2 ABG pO2 ABG PO2/FiO2 Ratio ABG HCO3 ABG O2 Saturation ABG O2 Content ABG Base Excess A-a Gradient Oxyhemoglobin Carboxyhemoglobin Methemoglobin Reduced Hemoglobin Total Hemoglobin O2 Delivery Device O2 Liters/Min Minute Volume Vent Rate Vent Mode FiO2 Tidal Volume PEEP Peak Inspir Pressure Pressure Support Sodium 162 H* 162 H* Potassium 3.5 3.5 Chloride 126 H 127 H Carbon Dioxide 23 24 Anion Gap 13 H 11 BUN 80 H 81 H Creatinine 2.37 H 2.31 H Estim Creat Clear Calc 19 19 Estimated GFR 21 L 21 L Glucose 147 H 125 H POC Capillary Glucose Calcium 8.8 9.1 Phosphorus 3.6 Magnesium 2.2 Total Bilirubin 0.6 AST 73 H ALT 35 Alkaline Phosphatase 68 Total Creatine Kinase C-Reactive Protein Total Protein 6.4 Albumin 3.6 Lipase 27 TSH 0.410 L Urine Eosinophils Ur Random Sodium Ur Random Urea 647 Urine Creatinine Blood Type Antibody Screen Crossmatch 06/01/25 06/01/25 04:35 05:36 WBC RBC Hgb Hct MCV MCH MCHC RDW Plt Count MPV Immature Gran % (Auto) Neut % (Auto) Lymph % (Auto) [place] % (Auto) Eos % (Auto) Baso % (Auto) Lymph # (Auto) [place] # (Auto) Eos # (Auto) Baso # (Auto) Abs Immat Gran (auto) Absolute Neuts (auto) Absolute Nucleated RBC Total Counted Neutrophils % (Manual) Band Neutrophils % Lymphocytes % (Manual) Monocytes % (Manual) Eosinophils % (Manual) Nucleated RBC % Abs Neuts (Manual) Abs Lymphs (Manual) Abs Monocytes (Manual) Absolute Eos (Manual) Nucleated RBCs Platelet Estimate Schistocytes PT INR APTT Puncture Site Left radial ABG pH 7.505 H* ABG pCO2 26.9 L ABG pO2 72.5 L ABG PO2/FiO2 Ratio 2.07 ABG HCO3 20.7 L ABG O2 Saturation 96.1 ABG O2 Content 10.6 L ABG Base Excess -1.8 A-a Gradient 145.8 Oxyhemoglobin 94.4 Carboxyhemoglobin 0.6 Methemoglobin 0.1 Reduced Hemoglobin 4.9 Total Hemoglobin 7.9 L O2 Delivery Device Ventilator O2 Liters/Min Not Reportable Minute Volume Not Reportable Vent Rate 20 Vent Mode Cmv FiO2 35 Tidal Volume 350 PEEP 8 Peak Inspir Pressure Not Reportable Pressure Support Not Reportable Sodium Potassium Chloride Carbon Dioxide Anion Gap BUN Creatinine Estim Creat Clear Calc Estimated GFR Glucose POC Capillary Glucose Calcium Phosphorus Magnesium Total Bilirubin AST ALT Alkaline Phosphatase Total Creatine Kinase C-Reactive Protein Total Protein Albumin Lipase TSH Urine Eosinophils Ur Random Sodium Ur Random Urea Urine Creatinine Blood Type O Positive Antibody Screen Negative Crossmatch See Detail Quality VTE Prophylaxis VTE prophylaxis: pharmacologic ordered
[2025-06-01 09:03] LABS: Anion Gap 12 mmol/L (4-12); Blood Urea Nitrogen 77 mg/dL (7-17); Calcium 9.1 mg/dL (8.4-10.2); Carbon Dioxide 22 mmol/L (22-30); Chloride 127 mmol/L (98-107); Estimated CRCL calculation 20 ml/min; Estimated Glomerular Filt Rate 23; Glucose 123 mg/dL (65-110); Potassium 3.2 mmol/L (3.4-5.0); Sodium 161 mmol/L (137-145)
--- NOTE | 2025-06-01 09:12 | P.CONGI_ITS ---
Assessment and Plan Assessment and plan (1) Coffee ground emesis: Code(s): K92.0 - Hematemesis Status: Acute (2) Acute on chronic anemia: Code(s): D64.9 - Anemia, unspecified Status: Acute (3) Dysphagia: Qualifiers: Dysphagia type: pharyngoesophageal phase Qualified Code(s): R13.14 - Dysphagia, pharyngoesophageal phase Code(s): R13.10 - Dysphagia, unspecified Status: Acute (4) Hypernatremia: Code(s): E87.0 - Hyperosmolality and hypernatremia Status: Acute (5) Aspiration pneumonia: Qualifiers: Aspiration pneumonia type: unspecified Laterality: bilateral Lung location: unspecified part of lung Qualified Code(s): J69.0 - Pneumonitis due to inhalation of food and vomit Code(s): J69.0 - Pneumonitis due to inhalation of food and vomit Status: Acute (6) Sepsis: Qualifiers: Sepsis type: sepsis due to unspecified organism Sepsis acute organ dysfunction status: unspecified Qualified Code(s): A41.9 - Sepsis, unspecified organism Code(s): A41.9 - Sepsis, unspecified organism Status: Acute (7) Acute hypoxic respiratory failure: Code(s): J96.01 - Acute respiratory failure with hypoxia Status: Acute Plan 1. Coffee ground emesis/acute on chronic anemia/PEG tube/dysphagia: EGD with PEG placement done 10/24/2024 for dysphagia and aspiration, EGD was normal and 20 fr PEG tube placed. Patient with acute on chronic anemia with decrease in H/H since yesterday Hgb 8.5-->7 and Hct 29-->22. INR 3.1. Coffee ground blood fluid noted in suction canister through OG tube. Patient currently receiving a unit of PRBC's. Patient intubated and being weaned of Levophed. PEG tube has not been used since admission. PEG external bumper was noted to be at the end of the tubing near Y port, bumper tightened to level of dressing. No significant drainage noted. No erythema or signs of infection. DDX: PUD vs small bowel vs duodenitis vs esophagitis vs gastric irrigation secondary to unsecured tube less likely neoplasm * Primary care team to continue monitoring H/H and transfuse as needed to keep Hgb >7 * Plan for bedside EGD tomorrow * Continue holding tube feedings * Keep NPO 2. Hypernatremia: Labs today showing Sodium at 161 and potassium 3.2. * Primary care team to continue monitoring and correct 2. Acute respiratory failure/aspiration pneumonia/sepsis/leukocytosis: Patient had bronchoscopy performed today by Dr. Sorensen. Aspirate noted bilaterally and aspiration performed, no foreign body noted. * Pulmonology on case Thank you very much for allowing me to share in the care of this very complex patient. This report may have been done utilizing a voice recognition system. Attempts have been made to correct errors. However, there may be uncorrected grammatical, spelling, and recognition errors present. GI Consult Note Consult date/time: 06/01/25 09:12 Reason for consult: Coffee ground emesis HPI: Amanda Cabrera is a 60 year old female with past medical surgical history of intellectual disability, schizoaffective disorder, dysphagia, peg tube placed 10/24/2024, epilepsy, anxiety and depression. She presented to the ER from [facility] after being found non responsive. Patient was admitted for acute kidney failure, septic shock, aspiration PNA, hypoxia, and hypernatremia. GI has been consulted for coffee-ground emesis. Patient with 4 hospital admission for respiratory failure since September 2024. She was last seen by GI during her hospitalization in October for dysphagia and aspiration and had a PEG tube placed 10/24/2024. This admission patient is being treated for multiple acute issues including sepsis, hypoxia, hypotension, hypernatremia, acute kidney failure, anemia and aspiration pneumonia. ENDOSCOPY HISTORY: EGD/PEG tube placement: 10/24/[address] Rosario for dysphagia Findings: Normal EGD to depth of insertion 20 ethiopian gastrostomy tube placed with the external bumper secured at 2.5 cm COLONOSCOPY: Prior colonoscopy history unknown LABS AND STOOL STUDIES: Labs 06/01/2025: Sodium 161, potassium 3.2, BUN 77, creatinine 2.16, GFR 23, calcium 9.1, magnesium 2.2 WBC 19, Hgb 7, Hct 22, MCV 100, platelets 255, INR 2.1 Total bilirubin 0.6, AST 73, ALT 35, Alkaline Phos 68, albumin 3.6 Total iron [ ], TIBC [ ], iron sat [ ], ferritin [ ], Vitamin B12 [ ], folate [ ] TSH 0.410, lipase 27, chloride 129 ABG pH 7.505, PO2 72.5, HCO3 20.7 Labs 05/31/2025: Sodium 167, potassium 4.1, BUN 85, creatinine 3.10, GFR 15, calcium 8.1 WBC 32, Hgb 9, Hct 29, MCV 103, platelets 400 IMAGING: Chest Xray 06/01/2025: Impression: Stable extensive right basilar consolidation and probable small right pleural effusion. Support tubes, as above. Abdominal Xray 05/31/2025: IMPRESSION: 1: NG tube tip in the stomach. CT chest/abd/pelvis w/contrast 05/31/2025: Impression: Complete right middle and lower lobe consolidation with a tree-in-bud and centrilobular nodules in the right upper lobe. Findings are compatible with extensive aspiration pneumonia, with fluid opacification of bronchus intermedius. Possible mild wall thickening extensively involving large bowel, as detailed above. Correlate for infectious/inflammatory colitis versus underdistention. CT chest/abd/pelvis w/contrast 02/27/2025: Impression: Fecal impaction/constipation. Percutaneous gastrostomy tube balloon is in duodenum. Mildly enlarged AP window lymph nodes, nonspecific. No other significant findings identified. Review of Systems 2 Review of Systems: ROS unobtainable: Yes unobtainable due to medical condition and unobtainable due to mental status PMFSH Past Medical History Medical History Intellectual disability Epilepsy Major depressive disorder Anxiety disorder Schizoaffective disorder Surgical History Surgical History Surgical history unknown Family History Family History Other Unknown family medical history Social History Social History Social History: Code status: Full code (per correction documentation) Smoking status: Unknown if ever smoked Alcohol intake: unknown Substance use: unknown Spiritual care concerns: No Meds Home Medications and Allergies Home Medications ?Medication ?Instructions ?Recorded ?Confirmed ?Type bupropion HCl 150 mg 24 hr tablet, 150 mg PO QAM 09/27/24 05/31/25 History extended release (Wellbutrin XL) lisinopril 10 mg tablet 10 mg PO DAILY 09/27/24 05/31/25 History valproic acid 250 mg capsule 750 mg PO HS 09/27/24 05/31/25 History acetaminophen 325 mg tablet 650 mg (2 x 325 mg) feeding tube 10/25/24 05/31/25 Rx Q4H PRN pain or fever #10 tabs alprazolam 0.5 mg tablet (Xanax) 0.5 mg feeding tube TID #10 tabs 10/25/24 05/31/25 Rx aripiprazole 20 mg tablet 20 mg feeding tube DAILY #10 tabs 10/25/24 05/31/25 Rx famotidine 20 mg tablet 20 mg feeding tube DAILY 05/31/25 05/31/25 History furosemide 40 mg tablet (Lasix) 40 mg PO DAILY 05/31/25 05/31/25 History guaifenesin 1,200 mg tablet, 1,200 mg PO BID 05/31/25 05/31/25 History extended release 12 hr (Mucinex) ipratropium 0.5 mg-albuterol 3 mg 3 ml inhalation Q6H PRN shortness 05/31/25 05/31/25 History (2.5 mg base)/3 mL nebulization of breath or wheezing soln loratadine 10 mg capsule (Allergy 10 mg PO DAILY 05/31/25 05/31/25 History Relief (loratadine)) Allergies Allergy/AdvReac Type Severity Reaction Status Date / Time No Known Allergies Allergy Verified 09/27/24 22:08 Vital Signs Vital Signs - 24 hr 05/31/25 09:30 05/31/25 09:36 05/31/25 09:45 Temperature Pulse Rate 67 66 67 Respiratory Rate Blood Pressure 127/70 127/70 58/47 L Pulse Oximetry Oxygen Delivery Fraction of Inspired Oxygen 05/31/25 09:52 05/31/25 10:00 05/31/25 10:00 Temperature Pulse Rate 68 68 68 Respiratory Rate 21 H Blood Pressure 140/63 136/55 L Pulse Oximetry Oxygen Delivery Fraction of Inspired Oxygen 05/31/25 10:00 05/31/25 10:00 05/31/25 10:03 Temperature 100.2 F H Pulse Rate 68 68 69 Respiratory Rate 21 H Blood Pressure 135/55 L 136/55 L 136/55 L Pulse Oximetry 99 Oxygen Delivery Fraction of Inspired Oxygen 05/31/25 10:26 05/31/25 10:48 05/31/25 10:55 Temperature Pulse Rate 69 67 67 Respiratory Rate 21 H Blood Pressure 132/58 L Pulse Oximetry 97 Oxygen Delivery Mechanical Ventilation Fraction of Inspired Oxygen 60 05/31/25 11:23 05/31/25 11:26 05/31/25 12:00 Temperature 100.6 F H Pulse Rate 68 67 68 Respiratory Rate 21 H 21 H Blood Pressure 133/76 124/72 Pulse Oximetry 97 Oxygen Delivery Fraction of Inspired Oxygen 05/31/25 12:00 05/31/25 12:00 05/31/25 12:00 Temperature Pulse Rate 68 68 68 Respiratory Rate 21 H Blood Pressure 124/72 124/72 Pulse Oximetry Oxygen Delivery Fraction of Inspired Oxygen 05/31/25 12:00 05/31/25 12:00 05/31/25 12:00 Temperature Pulse Rate 68 68 68 Respiratory Rate 21 H 21 H Blood Pressure Pulse Oximetry Oxygen Delivery Mechanical Ventilation Fraction of Inspired Oxygen 60 05/31/25 12:00 05/31/25 12:14 05/31/25 12:42 Temperature 100.4 F H Pulse Rate 68 Respiratory Rate 22 H Blood Pressure Pulse Oximetry Oxygen Delivery Fraction of Inspired Oxygen 60 05/31/25 12:51 05/31/25 12:52 05/31/25 13:20 Temperature Pulse Rate 69 69 68 Respiratory Rate 20 20 Blood Pressure 130/72 Pulse Oximetry Oxygen Delivery Fraction of Inspired Oxygen 05/31/25 13:35 05/31/25 13:52 05/31/25 13:52 Temperature Pulse Rate 71 72 72 Respiratory Rate 23 H Blood Pressure 131/69 Pulse Oximetry 97 Oxygen Delivery Mechanical Ventilation Fraction of Inspired Oxygen 40 05/31/25 13:58 05/31/25 14:00 05/31/25 14:00 Temperature 100.7 F H Pulse Rate 72 70 Respiratory Rate 21 H Blood Pressure 127/77 Pulse Oximetry Oxygen Delivery Fraction of Inspired Oxygen 05/31/25 14:00 05/31/25 14:00 05/31/25 14:00 Temperature Pulse Rate 70 70 70 Respiratory Rate 22 H Blood Pressure 127/77 Pulse Oximetry Oxygen Delivery Fraction of Inspired Oxygen 05/31/25 14:00 05/31/25 14:04 05/31/25 14:16 Temperature Pulse Rate 70 72 72 Respiratory Rate 22 H Blood Pressure 127/77 127/77 127/77 Pulse Oximetry 95 Oxygen Delivery Fraction of Inspired Oxygen 05/31/25 15:09 05/31/25 16:00 05/31/25 16:00 Temperature Pulse Rate 69 69 69 Respiratory Rate 22 H Blood Pressure 136/62 125/68 Pulse Oximetry Oxygen Delivery Fraction of Inspired Oxygen 05/31/25 16:00 05/31/25 16:00 05/31/25 16:00 Temperature 101.1 F H Pulse Rate 69 69 69 Respiratory Rate 22 H 22 H Blood Pressure 125/68 125/68 Pulse Oximetry 97 Oxygen Delivery Fraction of Inspired Oxygen 05/31/25 16:00 05/31/25 16:00 05/31/25 16:00 Temperature Pulse Rate 68 69 Respiratory Rate 22 H Blood Pressure Pulse Oximetry 97 Oxygen Delivery Mechanical Ventilation Fraction of Inspired Oxygen 40 60 05/31/25 16:49 05/31/25 16:49 05/31/25 18:00 Temperature Pulse Rate 66 65 60 Respiratory Rate Blood Pressure 131/74 Pulse Oximetry 96 Oxygen Delivery Mechanical Ventilation Fraction of Inspired Oxygen 40 05/31/25 18:00 05/31/25 18:00 05/31/25 18:00 Temperature 97.3 F L Pulse Rate 60 60 60 Respiratory Rate 21 H 21 H Blood Pressure 130/61 130/61 Pulse Oximetry 98 Oxygen Delivery Fraction of Inspired Oxygen 05/31/25 18:00 05/31/25 18:00 05/31/25 20:00 Temperature Pulse Rate 60 60 59 L Respiratory Rate 21 H Blood Pressure 130/61 142/68 H Pulse Oximetry Oxygen Delivery Fraction of Inspired Oxygen 05/31/25 20:00 05/31/25 20:00 05/31/25 20:00 Temperature Pulse Rate 59 L 59 L 59 L Respiratory Rate 21 H 21 H Blood Pressure 142/68 H Pulse Oximetry Oxygen Delivery Fraction of Inspired Oxygen 05/31/25 20:00 05/31/25 20:00 05/31/25 20:00 Temperature Pulse Rate 61 Respiratory Rate Blood Pressure Pulse Oximetry 98 Oxygen Delivery Mechanical Ventilation Fraction of Inspired Oxygen 35 30 05/31/25 20:01 05/31/25 20:08 05/31/25 20:10 Temperature 97.9 F Pulse Rate 60 57 L 59 L Respiratory Rate 20 Blood Pressure 142/68 H 142/68 H Pulse Oximetry 98 98 Oxygen Delivery Mechanical Ventilation Fraction of Inspired Oxygen 40 05/31/25 20:12 05/31/25 20:16 05/31/25 20:21 Temperature 97.9 F Pulse Rate 59 L 59 L 59 L Respiratory Rate 21 H 20 Blood Pressure 136/63 136/63 Pulse Oximetry 96 Oxygen Delivery Fraction of Inspired Oxygen 05/31/25 20:30 05/31/25 20:31 05/31/25 20:31 Temperature 97.9 F Pulse Rate 61 58 L 58 L Respiratory Rate 21 H 20 Blood Pressure 130/71 130/71 Pulse Oximetry 97 Oxygen Delivery Fraction of Inspired Oxygen 05/31/25 20:36 05/31/25 20:37 05/31/25 20:45 Temperature 97.9 F 98.0 F Pulse Rate 61 60 63 Respiratory Rate 20 20 Blood Pressure 137/68 137/68 Pulse Oximetry 97 97 Oxygen Delivery Fraction of Inspired Oxygen 05/31/25 20:46 05/31/25 21:01 05/31/25 21:16 Temperature 98.0 F 98.0 F 97.8 F Pulse Rate 61 61 59 L Respiratory Rate 20 21 H 20 Blood Pressure 128/67 129/65 99/56 L Pulse Oximetry 97 97 95 Oxygen Delivery Fraction of Inspired Oxygen 05/31/25 21:31 05/31/25 21:31 05/31/25 21:47 Temperature 98.0 F 97.9 F Pulse Rate 58 L 58 L 58 L Respiratory Rate 20 20 Blood Pressure 117/68 117/68 104/56 L Pulse Oximetry 96 95 Oxygen Delivery Fraction of Inspired Oxygen 05/31/25 21:53 05/31/25 21:53 05/31/25 22:00 Temperature Pulse Rate 58 L 58 L 58 L Respiratory Rate 22 H 22 H Blood Pressure 89/50 L Pulse Oximetry Oxygen Delivery Fraction of Inspired Oxygen 05/31/25 22:00 05/31/25 22:00 05/31/25 22:00 Temperature Pulse Rate 58 L 58 L 58 L Respiratory Rate 20 20 Blood Pressure 89/50 L Pulse Oximetry Oxygen Delivery Fraction of Inspired Oxygen 05/31/25 22:00 05/31/25 22:01 05/31/25 22:13 Temperature 98.0 F 97.9 F Pulse Rate 58 L 57 L 58 L Respiratory Rate 20 20 Blood Pressure 89/50 L 81/49 L Pulse Oximetry 95 94 Oxygen Delivery Fraction of Inspired Oxygen 05/31/25 22:15 05/31/25 22:16 05/31/25 22:19 Temperature 97.9 F Pulse Rate 59 L 59 L 59 L Respiratory Rate 21 H 21 H Blood Pressure 81/45 L 81/45 L Pulse Oximetry 93 Oxygen Delivery Fraction of Inspired Oxygen 05/31/25 22:21 05/31/25 22:30 05/31/25 22:45 Temperature 97.8 F 97.7 F 97.7 F Pulse Rate 58 L 59 L 60 Respiratory Rate 21 H 21 H 20 Blood Pressure 88/56 L 91/56 L 85/53 L Pulse Oximetry 96 94 95 Oxygen Delivery Fraction of Inspired Oxygen 05/31/25 22:58 05/31/25 23:00 05/31/25 23:00 Temperature 97.6 F Pulse Rate 58 L 58 L 59 L Respiratory Rate 21 H Blood Pressure 85/53 L 90/63 L Pulse Oximetry 96 95 Oxygen Delivery Mechanical Ventilation Fraction of Inspired Oxygen 35 05/31/25 23:15 05/31/25 23:30 05/31/25 23:45 Temperature 97.6 F 97.6 F 97.7 F Pulse Rate 59 L 60 58 L Respiratory Rate 21 H 21 H 20 Blood Pressure 94/57 L 98/64 L 103/60 Pulse Oximetry 96 95 96 Oxygen Delivery Fraction of Inspired Oxygen 06/01/25 00:00 06/01/25 00:00 06/01/25 00:00 Temperature Pulse Rate 73 73 73 Respiratory Rate 20 20 Blood Pressure 99/55 L Pulse Oximetry Oxygen Delivery Fraction of Inspired Oxygen 06/01/25 00:00 06/01/25 00:00 06/01/25 00:00 Temperature Pulse Rate 73 Respiratory Rate Blood Pressure 99/55 L Pulse Oximetry 94 Oxygen Delivery Mechanical Ventilation Fraction of Inspired Oxygen 35 30 06/01/25 00:00 06/01/25 00:00 06/01/25 00:17 Temperature 97.5 F L 97.7 F Pulse Rate 68 58 L 58 L Respiratory Rate 20 20 Blood Pressure 99/55 L 98/66 L Pulse Oximetry 94 97 Oxygen Delivery Fraction of Inspired Oxygen 06/01/25 00:30 06/01/25 00:46 06/01/25 01:01 Temperature 97.8 F 97.8 F 97.8 F Pulse Rate 60 59 L 59 L Respiratory Rate 20 20 20 Blood Pressure 101/58 L 102/63 99/64 L Pulse Oximetry 96 97 97 Oxygen Delivery Fraction of Inspired Oxygen 06/01/25 01:13 06/01/25 01:19 06/01/25 01:19 Temperature Pulse Rate 60 61 61 Respiratory Rate 20 Blood Pressure 101/61 101/61 Pulse Oximetry Oxygen Delivery Fraction of Inspired Oxygen 06/01/25 01:33 06/01/25 02:00 06/01/25 02:00 Temperature 97.7 F Pulse Rate 63 62 62 Respiratory Rate 20 20 Blood Pressure 114/66 Pulse Oximetry 98 Oxygen Delivery Fraction of Inspired Oxygen 06/01/25 02:00 06/01/25 02:00 06/01/25 02:00 Temperature Pulse Rate 62 62 62 Respiratory Rate 20 20 Blood Pressure 114/66 Pulse Oximetry Oxygen Delivery Fraction of Inspired Oxygen 06/01/25 02:00 06/01/25 02:00 06/01/25 03:39 Temperature Pulse Rate 62 60 65 Respiratory Rate 21 H Blood Pressure 114/66 Pulse Oximetry 96 Oxygen Delivery Mechanical Ventilation Fraction of Inspired Oxygen 35 06/01/25 04:00 06/01/25 04:00 06/01/25 04:00 Temperature 97.6 F Pulse Rate 71 Respiratory Rate 20 Blood Pressure 112/64 Pulse Oximetry 92 92 Oxygen Delivery Mechanical Ventilation Fraction of Inspired Oxygen 35 30 06/01/25 04:00 06/01/25 04:00 06/01/25 04:00 Temperature Pulse Rate 71 71 71 Respiratory Rate 20 20 Blood Pressure 112/64 Pulse Oximetry Oxygen Delivery Fraction of Inspired Oxygen 06/01/25 04:00 06/01/25 04:00 06/01/25 05:00 Temperature Pulse Rate 71 71 58 L Respiratory Rate Blood Pressure 112/64 Pulse Oximetry 96 Oxygen Delivery Mechanical Ventilation Fraction of Inspired Oxygen 35 06/01/25 05:30 06/01/25 05:31 06/01/25 05:45 Temperature 97.2 F L 97.1 F L Pulse Rate 58 L 57 L 59 L Respiratory Rate 21 H 21 H Blood Pressure 109/67 109/67 124/74 Pulse Oximetry 97 98 Oxygen Delivery Fraction of Inspired Oxygen 06/01/25 06:00 06/01/25 06:00 06/01/25 06:00 Temperature 97.2 F L Pulse Rate 57 L 57 L 57 L Respiratory Rate 21 H Blood Pressure 116/73 116/73 Pulse Oximetry 98 Oxygen Delivery Fraction of Inspired Oxygen 06/01/25 06:00 06/01/25 06:00 06/01/25 06:00 Temperature Pulse Rate 57 L 57 L 57 L Respiratory Rate 21 H 21 H Blood Pressure 116/73 Pulse Oximetry Oxygen Delivery Fraction of Inspired Oxygen 06/01/25 06:00 06/01/25 07:38 06/01/25 07:41 Temperature 97.2 F L Pulse Rate 57 L 60 60 Respiratory Rate 21 H 21 H Blood Pressure 116/73 Pulse Oximetry 98 96 Oxygen Delivery Mechanical Ventilation Fraction of Inspired Oxygen 35 06/01/25 08:00 06/01/25 08:00 06/01/25 08:00 Temperature 97.8 F Pulse Rate 63 63 63 Respiratory Rate 20 20 Blood Pressure 116/60 116/60 Pulse Oximetry 96 Oxygen Delivery Fraction of Inspired Oxygen 06/01/25 08:00 06/01/25 08:00 06/01/25 09:04 Temperature 98.2 F Pulse Rate 63 63 66 Respiratory Rate 20 22 H Blood Pressure 116/60 102/67 Pulse Oximetry 96 Oxygen Delivery Fraction of Inspired Oxygen Results Labs 06/01/25 04:19 06/01/25 08:34 Labs: Short CBC 06/01/25 Range/Units 04:19 WBC 19.4 H (4.5-10.0) K/mm3 Hgb 6.9 L* (12.0-15.0) g/dL Hct 22.4 L (37.0-47.0) % Plt Count 255 (150-375) k/mm3 BMP 05/31/25 05/31/25 05/31/25 09:23 13:54 17:03 Sodium 165 H* 164 H* 163 H* Potassium 4.0 3.7 3.7 Chloride 127 H 126 H 127 H Carbon Dioxide 22 23 22 BUN 86 H 83 H 83 H Creatinine 3.03 H 2.66 H 2.56 H Glucose 229 H 201 H 195 H Calcium 8.2 L 8.4 8.6 07/16/25 07/17/25 07/17/25 21:14 00:00 04:19 Sodium 162 H* 162 H* 162 H* Potassium 3.6 3.5 3.5 Chloride 125 H 126 H 127 H Carbon Dioxide 23 23 24 BUN 80 H 80 H 81 H Creatinine 2.45 H 2.37 H 2.31 H Glucose 195 H 147 H 125 H Calcium 8.7 8.8 9.1 06/01/25 08:34 Sodium 161 H* Potassium 3.2 L Chloride 127 H Carbon Dioxide 22 BUN 77 H Creatinine 2.16 H Glucose 123 H Calcium 9.1 Cardiac Enzymes 05/31/25 Range/Units 09:23 Total Creatine Kinase 630 H (30-135) U/L Liver Function 06/01/25 Range/Units 04:19 Total Bilirubin 0.6 (0.2-1.3) mg/dL AST 73 H (14-36) U/L ALT 35 (6-35) U/L Alkaline Phosphatase 68 (38-126) U/L Albumin 3.6 (3.5-5.1) g/dL
--- NOTE | 2025-06-01 10:00 | PM.OP ---
Procedure Note - Brief Procedure Note - Brief Date of procedure: 06/01/25 Aspiration Procedure performed: bronchoscopy Surgeon: Bhupendra Sorensen MD Description of procedure: After informed consent obtained, time-out was performed. Patient was preoxygenated with 100% FiO2. 2 mL of 2% lidocaine was delivered down the ET tube. Bronchoscope was inserted through the pre-existing ET tube. Mucosa normal. Thick creamy white non occluding secretions in the right upper lobe were aspirated. Thick creamy white non occluding secretions in the right middle lobe were aspirated. Thick creamy white occluding secretions in the right lower lobe were aspirated. After aspiration all right segments visualized and patent. Left lung was inspected. There were scant thick white non occluding secretions in the left lung. After aspirations all left segments visualized and patent. No foreign bodies were observed. No bleeding observed at the end of the procedure. ET tube 3 cm above the zhou at the end of the procedure. 10 mL of washings from the right lower lobe were sent for bacterial culture. 06/01/25: Post procedure CXR: XR chest 1V portable Ordering provider: Mona Partida MD History: 60 years Female with . post brochoscopy . Comparison: None. FINDINGS: MEDIASTINUM: The cardiac silhouette is not enlarged. Left PICC line with the tip overlying superior vena cava. Endotracheal tube with the tip above the zhou by about 3.5 cm. Nasogastric tube is extending to the stomach. LUNGS: No effusions or pneumothorax. Opacification the right lung base suggestive of atelectasis versus pneumonia. OTHER: No free air under the diaphragm. Degenerative changes of the spine. IMPRESSION: Right basilar atelectasis versus pneumonia.
[2025-06-01 10:08] LABS: Free T4 Free Thyroxine 1.13 ng/dL (0.78-2.19)
--- NOTE | 2025-06-01 10:08 | SUR.OPER ---
Sedation managed by ICU nurse and dehairing machine tender during the bronchoscopy.
[2025-06-01] MEDS: LIDOCAINE 2% LOCAL INJ 20 ML VIAL INFILTRATE (10:09)
[2025-06-01 10:46] LABS: Iron 49 ug/dL (37-170)
[2025-06-01 10:55] LABS: Percent Iron Saturation 48 % (20-50)
[2025-06-01 11:19] LABS: Vitamin B12 967.0 pg/mL (239-931)
--- NOTE | 2025-06-01 12:41 | P.PNNP_ITS ---
Progress Note: A&P Assessment and Plan (1) Hypernatremia: Code(s): E87.0 - Hyperosmolality and hypernatremia Status: Acute Assessment and Plan: * slow improvement noted * as noted on admission * significant free water deficit noted (~ 5.5 - 6.0 liters...) * presumably this change in sodium occurred over several days if not longer (chronic) * goal of therapy would be a change in sodium ~ 10 - 12mmol/L in 24 hours -- being achieved * sodium improving with just 1/2NS IVFs (and this is likely helping MYLA/ARF as well) * however, may need D5W eventually... * start free water flushes to help compensate as well * follow trend of repeat sodium levels (2) Acute renal failure: Code(s): N17.9 - Acute kidney failure, unspecified Status: Acute Assessment and Plan: * slow improvement noted * normal renal function ~ 3 months ago * suspect multifactorial: * hemodynamic instability/shock * infection/sepsis * diuretic and DOMINGUEZ-I use prior to admission * other(?) * evaluation to date noted: * renal ultrasound normal * urine electrolytes prerenal * urine eosinophils negative * CPK mildly elevated (not enough to affect kidney function) * s/p aggressive IVF resuscitation * continue maintenance IVFs at this time (but follow sodium closely -- see #1) * follow trend of repeat labs and UOP (3) Septic shock: Code(s): A41.9 - Sepsis, unspecified organism; R65.21 - Severe sepsis with septic shock Status: Acute Assessment and Plan: * as noted on presentation with acute respiratory failure with tachypnea, hypotension, tachycardia, leukocytosis, and fever * s/p aggressive IVF resuscitation but hypotension persisted * initiated on vasopressor therapy (levophed + vasopressin) * follow culture data * on antibiotics * follow trend of hemodynamics (4) Acute hypoxic respiratory failure: Code(s): J96.01 - Acute respiratory failure with hypoxia Status: Acute Assessment and Plan: * as noted on presenation * suspect secondary to aspiration pneumonia * by report, took pills and pudding with subsequent hypoxia, tachypnea, low BP, and fever * intubated in ER and on mechanical ventilation * imaging results noted * Pulmonary following * s/p bronchoscopy earlier today * weaning once more stable (5) Aspiration pneumonia: Qualifiers: Aspiration pneumonia type: unspecified Laterality: bilateral Lung location: unspecified part of lung Qualified Code(s): J69.0 - Pneumonitis due to inhalation of food and vomit Code(s): J69.0 - Pneumonitis due to inhalation of food and vomit Status: Acute Assessment and Plan: * suspected etiology of #4 and #3 * continue therapy as outlined (6) Anemia: Code(s): D64.9 - Anemia, unspecified Status: Acute Assessment and Plan: * presumably related to MYLA/ARF and acute illness * acute drop in H/H noted * possible coffee gorund emesis via OGT * GI recommendations noted -- EGD tomorrow * PRBC transfusion per protocol * follow trend of H/H Will continue to follow. Subjective Date/time seen: 06/01/25 12:41 Interval history: Follow-up for acute kidney injury/acute renal failure and hypernatremia. Renal function/creatinine as well as sodium continue to slowly improve with current interventions/therapy in association with reasonable urine output; remains intubated/sedated and on mechanical ventilation; weaned off vasopressin but remains on levophed; noted drop in H/H this AM so received PRBC transfusion; seen by Pulmonary and s/p bronchoscopy earlier this AM; no apparent distress noted when seen. Exam Narrative: General: ill appearing female intubated/sedated and on mechanical ventilation Heart: normal S1 and S2; no rub Lungs: coarse breath sounds Abdomen: soft, nontender, nondistended, positive bowel sounds Extremities: no cyanosis or clubbing; trace edema Skin: warm and dry Objective Data Vital Signs Vital Signs: Vital Signs Temp Pulse Resp BP Pulse Ox O2 Del Method FiO2 06/01/25 12:05 59 L 86/52 L 06/01/25 12:00 35 06/01/25 12:00 62 06/01/25 12:00 60 20 97 Mechanical Ventilation 35 06/01/25 12:00 61 125/65 06/01/25 12:00 61 19 06/01/25 12:00 61 19 06/01/25 12:00 61 125/65 06/01/25 12:00 98.4 F 66 19 109/64 95 06/01/25 11:43 98.6 F 92 18 107/71 97 06/01/25 11:19 98.6 F 61 18 105/71 97 06/01/25 11:12 63 97 Mechanical Ventilation 35 06/01/25 10:15 98.4 F 62 19 109/69 96 06/01/25 10:00 65 06/01/25 10:00 98.6 F 61 19 125/65 97 06/01/25 10:00 98.4 F 66 19 109/64 95 06/01/25 10:00 66 109/64 06/01/25 10:00 66 109/64 06/01/25 10:00 66 18 06/01/25 10:00 60 18 06/01/25 09:45 98.2 F 78 18 116/66 95 06/01/25 09:37 98.2 F 62 18 124/70 100 06/01/25 09:19 98.2 F 63 20 118/63 96 06/01/25 09:04 98.2 F 66 22 H 102/67 96 06/01/25 08:50 98.2 F 63 20 118/63 96 Mechanical Ventilation 06/01/25 08:00 35 06/01/25 08:00 63 20 06/01/25 08:00 64 06/01/25 08:00 96 Mechanical Ventilation 35 06/01/25 08:00 63 116/60 06/01/25 08:00 63 20 06/01/25 08:00 63 20 06/01/25 08:00 63 116/60 06/01/25 08:00 97.8 F 63 20 116/60 96 06/01/25 07:41 60 21 H 06/01/25 07:38 60 96 Mechanical Ventilation 35 06/01/25 06:00 97.2 F L 57 L 21 H 116/73 98 06/01/25 06:00 57 L 116/73 06/01/25 06:00 57 L 21 H 06/01/25 06:00 57 L 21 H 06/01/25 06:00 57 L 116/73 06/01/25 06:00 97.2 F L 57 L 21 H 116/73 98 06/01/25 06:00 57 L 06/01/25 05:45 97.1 F L 59 L 21 H 124/74 98 06/01/25 05:31 97.2 F L 57 L 21 H 109/67 97 06/01/25 05:30 58 L 109/67 06/01/25 05:00 58 L 96 Mechanical Ventilation 35 06/01/25 04:00 71 06/01/25 04:00 71 112/64 06/01/25 04:00 71 20 06/01/25 04:00 71 20 06/01/25 04:00 71 112/64 06/01/25 04:00 97.6 F 71 20 112/64 92 06/01/25 04:00 30 06/01/25 04:00 92 Mechanical Ventilation 35 06/01/25 03:39 65 21 H 06/01/25 02:00 60 96 Mechanical Ventilation 35 06/01/25 02:00 62 114/66 06/01/25 02:00 62 20 06/01/25 02:00 62 20 06/01/25 02:00 62 114/66 06/01/25 02:00 62 06/01/25 02:00 97.7 F 62 20 114/66 98 06/01/25 01:33 63 20 06/01/25 01:19 61 101/61 06/01/25 01:19 61 101/61 06/01/25 01:13 60 20 06/01/25 01:01 97.8 F 59 L 20 99/64 L 97 06/01/25 00:46 97.8 F 59 L 20 102/63 97 06/01/25 00:30 97.8 F 60 20 101/58 L 96 06/01/25 00:17 97.7 F 58 L 20 98/66 L 97 06/01/25 00:00 58 L 06/01/25 00:00 97.5 F L 68 20 99/55 L 94 06/01/25 00:00 30 06/01/25 00:00 94 Mechanical Ventilation 35 06/01/25 00:00 73 99/55 L 06/01/25 00:00 73 20 06/01/25 00:00 73 20 06/01/25 00:00 73 99/55 L 05/31/25 23:45 97.7 F 58 L 20 103/60 96 05/31/25 23:30 97.6 F 60 21 H 98/64 L 95 05/31/25 23:15 97.6 F 59 L 21 H 94/57 L 96 05/31/25 23:00 59 L 95 Mechanical Ventilation 35 05/31/25 23:00 97.6 F 58 L 21 H 90/63 L 96 05/31/25 22:58 58 L 85/53 L 05/31/25 22:45 97.7 F 60 20 85/53 L 95 05/31/25 22:30 97.7 F 59 L 21 H 91/56 L 94 05/31/25 22:21 97.8 F 58 L 21 H 88/56 L 96 05/31/25 22:19 59 L 21 H 05/31/25 22:16 97.9 F 59 L 21 H 81/45 L 93 05/31/25 22:15 59 L 81/45 L 05/31/25 22:13 97.9 F 58 L 20 81/49 L 94 05/31/25 22:01 98.0 F 57 L 20 89/50 L 95 05/31/25 22:00 58 L 05/31/25 22:00 58 L 89/50 L 05/31/25 22:00 58 L 20 05/31/25 22:00 58 L 20 05/31/25 22:00 58 L 89/50 L 05/31/25 21:53 58 L 22 H 05/31/25 21:53 58 L 22 H 05/31/25 21:47 97.9 F 58 L 20 104/56 L 95 05/31/25 21:31 98.0 F 58 L 20 117/68 96 05/31/25 21:31 58 L 117/68 05/31/25 21:16 97.8 F 59 L 20 99/56 L 95 05/31/25 21:01 98.0 F 61 21 H 129/65 97 05/31/25 20:46 98.0 F 61 20 128/67 97 05/31/25 20:45 98.0 F 63 20 97 05/31/25 20:37 97.9 F 60 20 137/68 97 05/31/25 20:36 61 137/68 05/31/25 20:31 97.9 F 58 L 20 130/71 97 05/31/25 20:31 58 L 130/71 05/31/25 20:30 61 21 H 05/31/25 20:21 59 L 136/63 05/31/25 20:16 97.9 F 59 L 20 136/63 96 05/31/25 20:12 59 L 21 H 05/31/25 20:10 59 L 98 Mechanical Ventilation 40 05/31/25 20:08 57 L 142/68 H 05/31/25 20:01 97.9 F 60 20 142/68 H 98 05/31/25 20:00 61 05/31/25 20:00 30 05/31/25 20:00 98 Mechanical Ventilation 35 05/31/25 20:00 59 L 21 H 05/31/25 20:00 59 L 21 H 05/31/25 20:00 59 L 142/68 H 05/31/25 20:00 59 L 142/68 H 05/31/25 18:00 60 21 H 05/31/25 18:00 60 130/61 05/31/25 18:00 60 21 H 05/31/25 18:00 60 130/61 05/31/25 18:00 97.3 F L 60 21 H 130/61 98 05/31/25 18:00 60 05/31/25 16:49 65 131/74 05/31/25 16:49 66 96 Mechanical Ventilation 40 Intake/Output Intake/Output: Intake & Output 05/29/25 05/30/25 05/31/25 06/01/25 23:59 23:59 23:59 23:59 Intake Total 7.6 3924.8 921.9 Output Total 425 790 Balance 7.6 3499.8 131.9 Meds/Results Medications: Active Medications Generic Name Dose Route Start Last Admin Trade Name Freq PRN Reason Stop Dose Admin Acetaminophen 650 mg 05/31/25 07:12 05/31/25 12:14 Acetaminophen Elixir 325 Mg/10.15 Ml Udc PO 650 mg Q6H PRN Administration Mild Pain (1-3) or Fever Acetylcysteine 200 mg 05/31/25 14:00 06/01/25 14:17 Acetylcysteine 20% Inhal Soln 800 Mg/4 Ml Vial INHALATION 200 mg Q6HRT MARLON Administration Albuterol/Ipratropium 3 ml 05/31/25 14:00 06/01/25 14:17 Ipratropium 0.5 Mg/Albuterol Sulfate 2.5 Mg Ampul.Neb 3 Ml INHALATION 3 ml Q6HRT MARLON Administration Dextrose 12.5 gm 05/31/25 10:14 Dextrose 50% 25 Gm/50 Ml Syringe IV PUSH PRN PRN Hypoglycemia Protocol Dornase Merlin 2.5 mg 05/31/25 11:30 06/01/25 07:41 Dornase Merlin Inh Soln 1 Mg/Ml 2.5 Ml Amp INHALATION 2.5 mg Q12HRT MARLON Administration Glucagon 1 mg 05/31/25 10:14 Glucagon For Inj 1 Mg Vial IM PRN PRN Hypoglycemia Protocol Glucose 15 gm 05/31/25 10:14 Glucose Oral Gel 15 Gm Of Glucse In 37.5 Gm Tube PO PRN PRN Hypoglycemia Protocol Heparin Sodium (Porcine) 5,000 units 05/31/25 09:00 05/31/25 20:24 Heparin Sodium 5,000 Units/Ml Vial SUB-Q 5,000 units Q12HR MARLON Administration Norepinephrine Bitartrate 8 mg in 250 mls @ 24.375 mls/hr 05/30/25 23:25 06/01/25 13:26 Levophed 8 Mg/D5w 250 Ml IV CONT 13 mcg/min .[id number] MARLON 24.38 mls/hr Administration Protocol 13 MCG/MIN Vasopressin 100 units/ 100 mls @ 0 mls/hr 05/30/25 23:45 06/01/25 12:00 Dextrose IV CONT 0 units/min .Q0M MARLON 0 mls/hr Titration Protocol 0 UNITS/MIN Fentanyl Citrate 2,500 mcg in 250 mls @ 10 mls/hr 05/31/25 03:21 06/01/25 12:00 Fentanyl 2,500 Mcg/Ns 250 Ml IV CONT 100 mcg/hr .Q25H MARLON 10 mls/hr Titration Protocol 100 MCG/HR Metronidazole 500 mg in 100 mls @ 100 mls/hr 05/31/25 13:00 06/01/25 13:15 Flagyl 500 Mg/Iso Soln 100 Ml IVPB 100 mls/hr Q8HR MARLON Administration Cefepime HCl 2 gm/ Sodium 50 mls @ 100 mls/hr 06/01/25 03:00 06/01/25 03:24 Chloride IVPB 100 mls/hr Q24H MARLON Administration Midazolam HCl 100 mg in 100 mls @ 2 mls/hr 05/31/25 10:30 06/01/25 12:00 Versed 100 Mg/Ns 100 Ml IV CONT 2 mg/hr .Q50H MARLON 2 mls/hr Titration Protocol 2 MG/HR Dextrose 1,000 mls @ 100 mls/hr 05/31/25 10:14 Dextrose 5% 1,000 Ml IVPB PRN PRN Hypoglycemia Protocol Sodium Chloride 1,000 mls @ 50 mls/hr 06/01/25 06:05 06/01/25 06:16 Sodium Chloride 0.45% IV CONT 50 mls/hr .Q20H MALRON Administration Insulin Aspart 2 - 5 units 05/31/25 12:00 06/01/25 15:53 Insulin Aspart (*Bkc) 100 Units/Ml SUB-Q Not Given Q6HR MARLON Protocol Multi-Ingred Cream/Lotion/Oil/Oint 1 applic 05/31/25 21:00 06/01/25 08:06 Mineral Oil/White Petrolatum Ointment EACH EYE 1 applic Q12HR MARLON Administration Pantoprazole Sodium 40 mg 05/31/25 09:00 06/01/25 08:07 Pantoprazole Sodium Iv 40 Mg Vial IV PUSH 40 mg Q12HR MARLON Administration Sodium Chloride 10 ml 05/31/25 06:00 06/01/25 14:00 Central Line Flush IV PUSH 10 ml Q8HR MARLON Administration Sodium Chloride 20 ml 05/30/25 23:54 Central Line Flush IV PUSH PRN PRN after blood draws Valproate Sodium 750 mg 06/01/25 21:00 Valproic Acid Liq 250 Mg/5 Ml Oral Solution Udc PO HS MARLON Radiology Results: ITS Impressions Chest/Abdomen/Pelvis CT 05/31/25 05:43 Impression: Complete right middle and lower lobe consolidation with a tree-in-bud and centrilobular nodules in the right upper lobe. Findings are compatible with extensive aspiration pneumonia, with fluid opacification of bronchus intermedius. Possible mild wall thickening extensively involving large bowel, as detailed above. Correlate for infectious/inflammatory colitis versus underdistention. Head CT 05/31/25 05:43 Impression: No intracranial abnormality seen. Sinus disease, as above. Abdomen X-Ray 05/31/25 09:28 IMPRESSION: 1: NG tube tip in the stomach. Renal Ultrasound 05/31/25 13:15 IMPRESSION: No abnormality seen in the kidneys. Reed's catheter seen in the urinary bladder. Chest X-Ray 06/01/25 10:00 IMPRESSION: Right basilar atelectasis versus pneumonia. Labs Labs: Laboratory Tests 06/01/25 04:19 WBC 19.4 H Hgb 6.9 L* Hct 22.4 L Plt Count 255 PT 23.1 H D INR 2.1 Sodium 162 H* Potassium 3.5 Chloride 127 H Carbon Dioxide 24 Anion Gap 11 BUN 81 H Creatinine 2.31 H Estim Creat Clear Calc 19 Estimated GFR 21 L Glucose 125 H Calcium 9.1 Phosphorus 3.6 Magnesium 2.2 Total Bilirubin 0.6 AST 73 H ALT 35 Alkaline Phosphatase 68 Total Protein 6.4 Albumin 3.6 Lipase 27 Microbiology 05/30/25 23:50 Blood Blood Culture - Preliminary 05/30/25 23:50 Blood Blood Culture - Preliminary
[2025-06-01 13:45] LABS: Anion Gap 10 mmol/L (4-12); Blood Urea Nitrogen 74 mg/dL (7-17); Calcium 8.8 mg/dL (8.4-10.2); Carbon Dioxide 22 mmol/L (22-30); Chloride 128 mmol/L (98-107); Estimated CRCL calculation 22 ml/min; Estimated Glomerular Filt Rate 25; Glucose 98 mg/dL (65-110); Potassium 3.2 mmol/L (3.4-5.0); Sodium 160 mmol/L (137-145)
[2025-06-01] MEDS: SODIUM CHLORIDE 0.9% IV 250 ML 30 ML IV CONT (15:54)
[2025-06-01] MEDS: FENTANYL 2,500MCG/NS250ML(*CRX 2,500 MCG/250 ML BAG 10 MCG IV CONT (18:43)
[2025-06-01 19:24] LABS: Anion Gap 12 mmol/L (4-12); Blood Urea Nitrogen 69 mg/dL (7-17); Calcium 9.0 mg/dL (8.4-10.2); Carbon Dioxide 21 mmol/L (22-30); Chloride 127 mmol/L (98-107); Estimated CRCL calculation 22 ml/min; Estimated Glomerular Filt Rate 26; Glucose 97 mg/dL (65-110); Potassium 3.3 mmol/L (3.4-5.0); Sodium 160 mmol/L (137-145)
[2025-06-01] MEDS: VALPROIC ACID LIQ 250 MG/5 ML ORAL SOLUTION UDC 750 MG PO (20:02)
[2025-06-01] MEDS: DEXTROSE 5% 1,000 ML 1,000 ML 50 ML IV CONT (20:03)
[2025-06-02] VITALS (88 sets, daily range): BP systolic 66–120; BP diastolic 43–69; PULSE 48–105; RESP 16–22; TEMP 36.2–37.8; O2SAT 87–100
--- NOTE | 2025-06-02 | ECHO_ITS ---
Patient Info Name: Amanda Cabrera Age: 60 years : 1965 Gender: Female Ht: 65 in Wt: 113 lbs BSA: 1.53 m2 HR: 52 bpm BP: 110 / 68 mmHg Heart Rhythm: Sinus Rhythm Technical Quality: Poor Exam Date: 06/02/2025 9:16 AM Patient Status: I Admit Date: 05/31/2025 Exam Type: CA echo dop color flow w con Complete two-dimensional, color flow and Doppler transthoracic echocardiogram is performed with contrast to opacify the left ventricle and to improve the deliniation of the left ventricle endocardial borders. Staff Referring Physician: Mona Partida MD Claim Clinician: Mary Shipley Attending Provider: Francisca Owen Contrast/Agitated Saline Contrast/Ag. Saline: Definity Amount: 2.00 ml Administered By: Mary Shipley Existing IV Access: Yes IV Access Condition: patent with no signs of infiltration Reason for Poor Study: poor echocardiographic windows Summary 1. Technically challenging exam with patient on the ventilator, definity contrast used to improve examination quality. 2. Normal appearing left and right ventricular systolic function. 3. Mildly sclerotic aortic valve with well maintained leaflet excursion. 4. No evidence of infectious vegetation is identified. Left Ventricle Left ventricular chamber dimension is normal. Left ventricular systolic function is normal, estimated at 60-65. The left ventricular diastolic function is normal. Right Ventricle Right ventricular chamber dimension is normal. Left Atria Left atrial chamber dimension is normal. Right Atria Right atrial chamber dimension is normal. Aortic Valve The aortic valve is trileaflet. There is mild aortic valve sclerosis. Pulmonic Valve The pulmonic valve is not well visualized. Mitral Valve The mitral valve has normal leaflets. Tricuspid Valve The tricuspid valve leaflets are normal. Pericardium/Pleural The pericardium appears normal. Aorta The aortic root size at the sinus of Valsalva is normal. Left Ventricular Outflow Tract Name Value Normal LVOT 2D LVOT Diameter 2.0 cm LVOT Doppler LVOT Peak Velocity 104 cm/s LVOT Peak Gradient 4 mmHg LVOT Mean Gradient 2 mmHg LVOT VTI 20 cm LVOT Stroke Volume 62 ml LVOT CO 3.3 l/min LVOT CI 2.1 l/min/m2 Pulmonic Valve Name Value Normal RVOT Doppler RVOT Peak Velocity 66 cm/s RVOT Peak Gradient 2 mmHg PV Doppler PV Peak Velocity 108 cm/s PV Peak Gradient 5 mmHg Mitral Valve Name Value Normal MV Diastolic Function MV E Peak Velocity 81 cm/s MV A Peak Velocity 68 cm/s MV E/A 1.2 MV Decel Time (PW) 270 ms MV Annular TDI MV E/e' (Septal) 7.5 MV E/e' (Lateral) 8.6 MV E/e' (Average) 8.1 Aortic Valve Name Value Normal AV Doppler AV Peak Velocity 114 cm/s AV Peak Gradient 5 mmHg AV Area (Cont Eq [place]) 2.8 cm2 AV DI ([place]) 0.91 AV Regurgitation 2D LVOT Area 3.1 cm2 Ventricles Name Value Normal LV Dimensions 2D/MM IVS Diastolic Thickness (2D) 0.9 cm 0.6-1.0 LVID Diastole (2D) 4.1 cm 3.8-5.2 LVIW Diastolic Thickness (2D) 0.6 cm 0.6-0.9 LVID Systole (2D) 2.5 cm 2.2-3.5 LVOT Diameter 2.0 cm LV Mass (2D Cubed) 86.27 g 67.00-162.00 LV Mass Index (2D Cubed) 57 g/m2 43-95 Relative Wall Thickness (2D) 0.30 <=0.42 LV Fractional Shortening/Ejection Fraction 2D/MM LV Fractional Shortening (2D) 39 % 27-45 LV EF (2D Teichholz) 69 % LV Diastolic Volume (4C MOD) 98 ml LV EF (4C MOD) 72 % LV Diastolic Volume (2C MOD) 85 ml LV EF (2C MOD) 63 % LV Diastolic Volume (BP MOD) 92 ml 46-106 LV Diastolic Volume Index (BP MOD) 60 ml/m2 29-61 LV Systolic Volume (BP MOD) 29 ml 14-42 LV Systolic Volume Index (BP MOD) 19 ml/m2 8-24 LV EF (BP MOD) 68 % 54-74 LV Diastolic Length (4C) 7.4 cm LV Systolic Length (4C) 6.1 cm LV Stroke Volume (4C MOD) 70 ml Atria Name Value Normal LA Dimensions LA Volume (4C A-L) 23 ml RA Dimensions RA Systolic Major [place] Length (4C) 4.2 cm 2.2-2.8 RA Area (4C) 11.1 cm2 <=18.0 Report Signatures
[2025-06-02] MEDS: MIDAZOLAM 100MG/NS 100ML(*CRX) 100 MG/100 ML BAG IV CONT (00:28)
[2025-06-02 00:44] LABS: Anion Gap 10 mmol/L (4-12); Blood Urea Nitrogen 62 mg/dL (7-17); Calcium 8.6 mg/dL (8.4-10.2); Carbon Dioxide 22 mmol/L (22-30); Chloride 127 mmol/L (98-107); Estimated CRCL calculation 23 ml/min; Estimated Glomerular Filt Rate 27; Glucose 100 mg/dL (65-110); Potassium 3.1 mmol/L (3.4-5.0); Sodium 159 mmol/L (137-145)
[2025-06-02] MEDS: IPRATROPIUM 0.5 MG/ALBUTEROL SULFATE 2.5 MG AMPUL.NEB 3 ML INHALATION ×4 (01:32→20:12)
[2025-06-02] MEDS: ACETYLCYSTEINE 20% INHAL SOLN 800 MG/4 ML VIAL 200 MG INHALATION ×4 (01:33→20:12)
[2025-06-02] MEDS: NOREPINEPHRINE 8 MG/D5W 250 ML 8 MG/250 ML BAG 11.25 MG IV CONT (03:00)
[2025-06-02] MEDS: CEFEPIME 2 GM in SODIUM CHLORIDE 0.9% IV 50 ML 100 ML IVPB (03:03)
[2025-06-02 03:07] LABS: Osmolality, Urine 541 mOsmol/kg (.)
[2025-06-02 03:07] LABS: Osmolality, Urine 616 mOsmol/kg (.)
[2025-06-02 04:31] LABS: Alveolar/Arterial O2 Gradient 156.4 mmHg; Carboxyhemoglobin 0.7 % THb (0-2.0); Fractional Inspired Oxygen 35 %; HCO3 ABG 17.9 mEq/l (22.0-26.0); Methemoglobin ABG 0.3 %THb (0-1.5); Oxygen Content ABG 17.4 %vol (16.0-22.0); Oxygen Saturation ABG 94.4 % (95.0-100.0); PCO2 ABG 24.5 mmHg (35.0-45.0); PO2 ABG 64.7 mmHg (80.0-100.0); PO2 FiO2 Ratio Arterial Blood 1.85 %; Reduced Hemoglobin 7.5 %THb (0-5.0)
[2025-06-02 04:32] LABS: Modified Allen's Test Pass; Site Drawn LEFT RADIAL
[2025-06-02 04:33] LABS: Arterial Blood Gas Tidal Volume 350 ml; Arterial Blood Gas Ventilator rate 20 /MIN
[2025-06-02] MEDS: CENTRAL LINE FLUSH 10 ML IV PUSH ×3 (06:07→20:51)
[2025-06-02] MEDS: metroNIDAZOLE 500 MG/ISO 100ML 500 MG/100 ML BAG 100 MG IVPB ×3 (06:33→20:51)
[2025-06-02 07:20] LABS: Hematocrit 28.0 % (37.0-47.0); Hemoglobin 8.7 g/dL (12.0-15.0); Mean Corpuscular HGB Conc 31.1 g/dl (32-36); Mean Corpuscular Hemoglobin 29.1 pg (26-34); Mean Corpuscular Volume 93.6 fl (80-100); Platelet Count Result 264 k/mm3 (150-375); Red Blood Count 2.99 M/mm3 (4.2-5.4); White Blood Count 22.5 K/mm3 (4.5-10.0)
[2025-06-02 08:04] LABS: Alanine Aminotransferase 38 U/L (6-35); Albumin Level 2.9 g/dL (3.5-5.1); Alkaline Phosphatase 94 U/L (38-126); Anion Gap 11 mmol/L (4-12); Anisocytosis 1+; Aspartate Amino Transferase 64 U/L (14-36); Band Neutrophils Percent 12 % (0-6); Bilirubin,Total 0.4 mg/dL (0.2-1.3); Blood Urea Nitrogen 60 mg/dL (7-17); Calcium 8.6 mg/dL (8.4-10.2); Carbon Dioxide 22 mmol/L (22-30); Chloride 129 mmol/L (98-107); Estimated CRCL calculation 25 ml/min; Estimated Glomerular Filt Rate 29; Glucose 98 mg/dL (65-110); Lymphocytes Absolute Manual 1.35 K/mm3 (1.1-4.5); Lymphocytes Percent Manual 6 % (18-44); Magnesium 2.2 mg/dL (1.6-2.3); Monocytes Absolute Manual 0.45 K/mm3 (0.1-0.90); Monocytes Percent Manual 2 % (3-9); Neutrophils Absolute Manual 20.70 K/mm3 (1.3-6.7); Neutrophils Percent Manual 80 % (46-73); Potassium 3.0 mmol/L (3.4-5.0); Schistocytes None Seen; Sodium 162 mmol/L (137-145); Total Cells Counted 100; Total Protein 5.9 g/dL (6.3-8.2)
[2025-06-02] MEDS: DORNASE ALFA INH SOLN 1 MG/ML 2.5 ML AMP 2.5 MG INHALATION (08:36)
[2025-06-02] MEDS: POTASSIUM CHLORIDE INJ 40 MEQ in DEXTROSE 5% IN WATER 500 ML 130 MEQ IVPB (09:00)
[2025-06-02] MEDS: POTASSIUM BICARBONATE 25 MEQ TABEF 50 MEQ FEED TUBE (09:00)
--- NOTE | 2025-06-02 09:25 | WPDINTPN ---
Progress Note: A&P Assessment and Plan (1) Septic shock: Code(s): A41.9 - Sepsis, unspecified organism; R65.21 - Severe sepsis with septic shock Status: Acute Assessment and Plan: Patient presented with hypoxemic respiratory failure, hypotension, tachycardia, tachypnea -received adequate amount of IV fluids despite which the blood pressures remained low -off vasopressin, Levophed being weaned. Maintain MAP > 65 mmHg for adequate end organ perfusion -acute kidney injury -urine output and creatinine improving, -continue cefepime, metronidazole (05/31) -received 1 dose of vancomycin (05/31), MRSA PCR is negative, vancomycin was discontinued (05/31) -05/31: Sputum cultures obtained and pending -05/31: Blood cultures growing Gram-positive cocci I will resume vancomycin until identification except abilities are obtained Check echocardiogram (2) Acute hypoxemic respiratory failure: Code(s): J96.01 - Acute respiratory failure with hypoxia Status: Acute Assessment and Plan: Patient presented with tachypnea, hypoxemia, GCS of 6, septic shock, acute hypoxemic respiratory failure, likely related to aspiration pneumonia as she was given her pills with some pudding and shortly after that patient was found hypoxic with hypotension and febrile at the nursing facility. Patient does have a PEG tube in place -05/31: Intubated in the ER -continue mechanical ventilation, CMV mode of ventilation 35% FiO2 -ABG reviewed: Ventilator adjusted decrease respiratory rate to 16 -sedated with fentany and Versed infusion, maintain RASS of 0 to -2. Will hold Versed -06/01 bronchoscopy was done and showed right-sided extensive secretions -chest x-ray on the right side appears worse. I will place patient with left side down (3) Aspiration pneumonia: Qualifiers: Aspiration pneumonia type: unspecified Laterality: bilateral Lung location: unspecified part of lung Qualified Code(s): J69.0 - Pneumonitis due to inhalation of food and vomit Code(s): J69.0 - Pneumonitis due to inhalation of food and vomit Status: Acute Assessment and Plan: See above (4) Acute renal failure: Code(s): N17.9 - Acute kidney failure, unspecified Status: Acute Assessment and Plan: Acute kidney injury, low urine output could be related to hypoxia, hypotension, ATN -creatinine on admission was 2.82, (baseline creatinine 0.6-0.9 in February of 2025) -patient has been adequately fluid-resuscitated -continue D5 water for hypernatremia -nephrology follow -unremarkable renal ultrasound, -continue to monitor renal function, electrolytes and urine output -avoid nephrotoxic medications (5) Electrolyte abnormality: Code(s): E87.8 - Other disorders of electrolyte and fluid balance, not elsewhere classified Status: Acute Assessment and Plan: HYPERNATREMIA: Secondary to dehydration decreased oral intake, insensible losses. Presented with a sodium level of 174 on admission -sodium levels being managed by Nephrology, currently on D5 water at 50 mL/hour Most recent sodium levels are 162 -free water deficit is roughly between 5.5-6.0 L -nephrology managed Free water flush the currently off Replace low potassium (6) Anemia: Code(s): D64.9 - Anemia, unspecified Status: Acute Assessment and Plan: 06/01: Patient dropped hemoglobin to 6.9 from 8.5 yesterday -06/01: Patient was transferred 1 unit of packed RBCs Normal vitamin B12, folic acid Iron panel suggested needs iron deficiency -GI consult and patient is scheduled for EGD today Plan DVT prophylaxis: Hold heparin subQ due to anemia, will place SCDs Stress ulcer prophylaxis: Protonix IV q.12 hours Nutrition: Will hold tube feeds until GI evaluate Code Status: Full Code Critical Care Time Spent: 41 minutes Due to a high probability of clinically significant, life threatening deterioration, the patient required my highest level of preparedness to intervene emergently and I personally spent this critical care time directly and personally managing the patient. This critical care time included obtaining a history; examining the patient; pulse oximetry; ordering and review of studies; arranging urgent treatment with development of a management plan; evaluation of patient's response to treatment; frequent reassessment; and discussions with other providers. It was exclusive of separately billable procedures and treating other patients and teaching time. Please see Assessment and Plan section and the rest of the note for further information on patient assessment and treatment This dictation may have been done utilizing a voice recognition system. Attempts have been made to correct errors. However, there may be uncorrected grammatical, spelling, and recognitions errors present. Subjective Date/time seen: 06/02/25 Overnight events reviewed. Afebrile Continues to be on mechanical ventilation 35% FiO2 and 8 of PEEP Continues to be on Levophed Continues to be sedated with Versed and fentanyl Adequate urine output. Other Vitals acceptable Tube feeds on hold Interval history: Reason for consult: Septic shock, Pneumonia, likely aspiration, acute kidney injury, altered mental status, anemia Review of Systems Review of Systems: ROS unobtainable: Yes unobtainable due to endotracheal tube and unobtainable due to medical condition Exam Narrative: General: Intubated and sedated, in no acute distress HEENT:? Pupils are pinpoint and sluggish, sclera is clear, ETT in place Neck:? Supple Respiratory:? Coarse breath sounds on right > left, no wheezing, adequate air entry Cardiac:? S1-S2 is normal, regular rate and rhythm Abdomen:? Soft, nontender, nondistended, PEG tube in placed, hypoactive bowel sounds Extremities:? Trace edema, palpable pedal pulse Neuro:? Patient is intubated, sedated, does not open her eyes to name of follows simple commands Skin:? Excoriations and scratch issa noted on the abdominal on the umbilicus, old healing wounds on the toes Psych:? Unable to assess at this time Objective Data Vital Signs Vital Signs: Vital Signs - 24 hr 06/01/25 09:37 06/01/25 09:45 06/01/25 10:00 Temperature 36.8 C 36.8 C Pulse Rate 62 78 60 Respiratory Rate 18 18 18 Blood Pressure 124/70 116/66 Pulse Oximetry 100 95 Oxygen Delivery Fraction of Inspired Oxygen 06/01/25 10:00 06/01/25 10:00 06/01/25 10:00 Temperature Pulse Rate 66 66 66 Respiratory Rate 18 Blood Pressure 109/64 109/64 Pulse Oximetry Oxygen Delivery Fraction of Inspired Oxygen 06/01/25 10:00 06/01/25 10:00 06/01/25 10:00 Temperature 36.9 C 37.0 C Pulse Rate 66 61 65 Respiratory Rate 19 19 Blood Pressure 109/64 125/65 Pulse Oximetry 95 97 Oxygen Delivery Fraction of Inspired Oxygen 06/01/25 10:15 06/01/25 11:12 06/01/25 11:19 Temperature 36.9 C 37.0 C Pulse Rate 62 63 61 Respiratory Rate 19 18 Blood Pressure 109/69 105/71 Pulse Oximetry 96 97 97 Oxygen Delivery Mechanical Ventilation Fraction of Inspired Oxygen 35 06/01/25 11:43 06/01/25 12:00 06/01/25 12:00 Temperature 37.0 C 36.9 C Pulse Rate 92 66 61 Respiratory Rate 18 19 Blood Pressure 107/71 109/64 125/65 Pulse Oximetry 97 95 Oxygen Delivery Fraction of Inspired Oxygen 06/01/25 12:00 06/01/25 12:00 06/01/25 12:00 Temperature Pulse Rate 61 61 61 Respiratory Rate 19 19 Blood Pressure 125/65 Pulse Oximetry Oxygen Delivery Fraction of Inspired Oxygen 06/01/25 12:00 06/01/25 12:00 06/01/25 12:00 Temperature Pulse Rate 60 62 Respiratory Rate 20 Blood Pressure Pulse Oximetry 97 Oxygen Delivery Mechanical Ventilation Fraction of Inspired Oxygen 35 35 06/01/25 12:05 06/01/25 13:26 06/01/25 14:00 Temperature Pulse Rate 59 L 59 L 59 L Respiratory Rate Blood Pressure 86/52 L 86/52 L Pulse Oximetry Oxygen Delivery Fraction of Inspired Oxygen 06/01/25 14:00 06/01/25 14:00 06/01/25 14:00 Temperature 37.1 C Pulse Rate 59 L 60 60 Respiratory Rate 20 20 Blood Pressure 108/66 108/66 Pulse Oximetry 97 Oxygen Delivery Fraction of Inspired Oxygen 06/01/25 14:00 06/01/25 14:00 06/01/25 14:17 Temperature Pulse Rate 60 60 Respiratory Rate 18 18 Blood Pressure 108/66 Pulse Oximetry Oxygen Delivery Fraction of Inspired Oxygen 06/01/25 14:21 06/01/25 16:00 06/01/25 16:00 Temperature Pulse Rate 61 63 63 Respiratory Rate 18 Blood Pressure 116/68 Pulse Oximetry 98 Oxygen Delivery Mechanical Ventilation Fraction of Inspired Oxygen 35 06/01/25 16:00 06/01/25 16:00 06/01/25 16:00 Temperature 37.2 C Pulse Rate 63 63 63 Respiratory Rate 18 18 Blood Pressure 116/68 116/68 Pulse Oximetry 96 Oxygen Delivery Fraction of Inspired Oxygen 06/01/25 16:00 06/01/25 16:00 06/01/25 16:00 Temperature Pulse Rate 63 63 Respiratory Rate 18 Blood Pressure Pulse Oximetry 96 Oxygen Delivery Mechanical Ventilation Fraction of Inspired Oxygen 35 35 06/01/25 16:42 06/01/25 18:00 06/01/25 18:00 Temperature Pulse Rate 63 61 91 Respiratory Rate 18 Blood Pressure 118/78 Pulse Oximetry 96 Oxygen Delivery Mechanical Ventilation Fraction of Inspired Oxygen 35 06/01/25 18:00 06/01/25 18:00 06/01/25 18:00 Temperature Pulse Rate 61 61 61 Respiratory Rate 18 Blood Pressure 118/78 Pulse Oximetry Oxygen Delivery Fraction of Inspired Oxygen 06/01/25 18:00 06/01/25 18:43 06/01/25 18:43 Temperature 37.3 C Pulse Rate 61 62 62 Respiratory Rate 19 18 18 Blood Pressure 118/78 Pulse Oximetry 97 Oxygen Delivery Fraction of Inspired Oxygen 06/01/25 19:40 06/01/25 19:40 06/01/25 19:45 Temperature 37.4 C 37.4 C Pulse Rate 61 63 61 Respiratory Rate 20 20 Blood Pressure 125/66 125/66 109/64 Pulse Oximetry 96 96 Oxygen Delivery Fraction of Inspired Oxygen 06/01/25 20:00 06/01/25 20:00 06/01/25 20:00 Temperature 37.4 C Pulse Rate 60 59 L Respiratory Rate 20 Blood Pressure 108/65 108/65 Pulse Oximetry 96 Oxygen Delivery Fraction of Inspired Oxygen 35 06/01/25 20:00 06/01/25 20:00 06/01/25 20:00 Temperature Pulse Rate 60 61 62 Respiratory Rate 19 19 Blood Pressure Pulse Oximetry Oxygen Delivery Fraction of Inspired Oxygen 06/01/25 20:15 06/01/25 20:15 06/01/25 20:17 Temperature 37.4 C Pulse Rate 83 77 83 Respiratory Rate 21 H 20 Blood Pressure 116/77 Pulse Oximetry 98 95 98 Oxygen Delivery Mechanical Ventilation Mechanical Ventilation Fraction of Inspired Oxygen 35 35 06/01/25 20:17 06/01/25 22:00 06/01/25 22:00 Temperature 37.3 C Pulse Rate 83 60 60 Respiratory Rate 21 H 20 Blood Pressure 98/59 L Pulse Oximetry 94 Oxygen Delivery Fraction of Inspired Oxygen 06/01/25 22:00 06/01/25 22:00 06/01/25 22:00 Temperature Pulse Rate 60 62 60 Respiratory Rate 20 18 Blood Pressure 103/69 Pulse Oximetry Oxygen Delivery Fraction of Inspired Oxygen 06/01/25 23:14 06/01/25 23:35 06/02/25 00:00 Temperature Pulse Rate 59 L 62 61 Respiratory Rate 21 H Blood Pressure 106/58 L Pulse Oximetry 98 94 Oxygen Delivery Mechanical Ventilation Mechanical Ventilation Fraction of Inspired Oxygen 35 35 06/02/25 00:00 06/02/25 00:00 06/02/25 00:00 Temperature 37.3 C Pulse Rate 61 61 60 Respiratory Rate 18 18 22 H Blood Pressure 106/58 L Pulse Oximetry 95 Oxygen Delivery Fraction of Inspired Oxygen 06/02/25 00:00 06/02/25 00:00 06/02/25 00:15 Temperature Pulse Rate 60 62 Respiratory Rate Blood Pressure 106/59 L Pulse Oximetry Oxygen Delivery Fraction of Inspired Oxygen 35 06/02/25 00:15 06/02/25 00:28 06/02/25 00:28 Temperature 37.3 C Pulse Rate 61 63 63 Respiratory Rate 20 22 H 22 H Blood Pressure 106/59 L Pulse Oximetry 94 Oxygen Delivery Fraction of Inspired Oxygen 06/02/25 00:30 06/02/25 01:33 06/02/25 01:33 Temperature 37.2 C Pulse Rate 62 56 L 56 L Respiratory Rate 21 H 20 Blood Pressure 95/54 L Pulse Oximetry 94 100 Oxygen Delivery Mechanical Ventilation Fraction of Inspired Oxygen 35 06/02/25 01:38 06/02/25 02:00 06/02/25 02:00 Temperature 36.9 C Pulse Rate 57 L 66 65 Respiratory Rate 20 20 Blood Pressure 96/56 L Pulse Oximetry 95 Oxygen Delivery Fraction of Inspired Oxygen 06/02/25 02:00 06/02/25 02:00 06/02/25 02:00 Temperature Pulse Rate 64 64 63 Respiratory Rate 20 20 Blood Pressure 96/56 L Pulse Oximetry Oxygen Delivery Fraction of Inspired Oxygen 06/02/25 03:00 06/02/25 03:00 06/02/25 03:57 Temperature Pulse Rate 69 64 57 L Respiratory Rate 20 Blood Pressure 96/55 L 96/55 L Pulse Oximetry 96 Oxygen Delivery Mechanical Ventilation Fraction of Inspired Oxygen 35 06/02/25 03:59 06/02/25 04:00 06/02/25 04:00 Temperature Pulse Rate 59 L 65 Respiratory Rate 20 Blood Pressure 111/65 Pulse Oximetry Oxygen Delivery Fraction of Inspired Oxygen 35 06/02/25 04:00 06/02/25 04:00 06/02/25 04:00 Temperature 36.6 C Pulse Rate 63 60 63 Respiratory Rate 20 20 Blood Pressure 111/65 Pulse Oximetry 96 Oxygen Delivery Fraction of Inspired Oxygen 06/02/25 04:53 06/02/25 06:00 06/02/25 06:00 Temperature 36.4 C Pulse Rate 60 100 100 Respiratory Rate 20 20 Blood Pressure 66/43 L Pulse Oximetry 95 97 Oxygen Delivery Mechanical Ventilation Fraction of Inspired Oxygen 35 06/02/25 06:00 06/02/25 06:00 06/02/25 06:00 Temperature Pulse Rate 100 100 55 L Respiratory Rate 20 Blood Pressure 66/43 L Pulse Oximetry Oxygen Delivery Fraction of Inspired Oxygen 06/02/25 06:03 06/02/25 06:11 06/02/25 06:17 Temperature 36.4 C 36.4 C Pulse Rate 51 L 56 L 55 L Respiratory Rate 21 H 20 20 Blood Pressure 106/67 119/68 Pulse Oximetry 98 98 Oxygen Delivery Fraction of Inspired Oxygen 06/02/25 06:45 06/02/25 06:48 06/02/25 06:48 Temperature Pulse Rate 55 L 53 L 53 L Respiratory Rate 20 20 Blood Pressure 120/69 Pulse Oximetry Oxygen Delivery Fraction of Inspired Oxygen 06/02/25 07:46 06/02/25 08:18 06/02/25 08:22 Temperature Pulse Rate 57 L 49 L 49 L Respiratory Rate 17 Blood Pressure 110/68 Pulse Oximetry 96 Oxygen Delivery Mechanical Ventilation Fraction of Inspired Oxygen 35 06/02/25 08:39 Temperature Pulse Rate 72 Respiratory Rate 20 Blood Pressure Pulse Oximetry Oxygen Delivery Fraction of Inspired Oxygen Intake/Output Intake/Output: Intake & Output 05/30/25 05/31/25 06/01/25 06/02/25 23:59 23:59 23:59 23:59 Intake Total 7.6 3924.8 1677.0 482.0 Output Total 425 1240 950 Balance 7.6 3499.8 437.0 -468.0 Meds/Results Medications: Active Medications Generic Name Dose Route Start Last Admin Trade Name Freq PRN Reason Stop Dose Admin Acetaminophen 650 mg 05/31/25 07:12 05/31/25 12:14 Acetaminophen Elixir 325 Mg/10.15 Ml Udc PO 650 mg Q6H PRN Administration Mild Pain (1-3) or Fever Acetylcysteine 200 mg 05/31/25 14:00 06/02/25 08:16 Acetylcysteine 20% Inhal Soln 800 Mg/4 Ml Vial INHALATION 200 mg Q6HRT MARLON Administration Albuterol/Ipratropium 3 ml 05/31/25 14:00 06/02/25 08:16 Ipratropium 0.5 Mg/Albuterol Sulfate 2.5 Mg Ampul.Neb 3 Ml INHALATION 3 ml Q6HRT MARLON Administration Dextrose 12.5 gm 05/31/25 10:14 Dextrose 50% 25 Gm/50 Ml Syringe IV PUSH PRN PRN Hypoglycemia Protocol Dornase Merlin 2.5 mg 05/31/25 11:30 06/02/25 08:36 Dornase Merlin Inh Soln 1 Mg/Ml 2.5 Ml Amp INHALATION 2.5 mg Q12HRT MARLON Administration Glucagon 1 mg 05/31/25 10:14 Glucagon For Inj 1 Mg Vial IM PRN PRN Hypoglycemia Protocol Glucose 15 gm 05/31/25 10:14 Glucose Oral Gel 15 Gm Of Glucse In 37.5 Gm Tube PO PRN PRN Hypoglycemia Protocol Heparin Sodium (Porcine) 5,000 units 05/31/25 09:00 05/31/25 20:24 Heparin Sodium 5,000 Units/Ml Vial SUB-Q 5,000 units Q12HR MARLON Administration Norepinephrine Bitartrate 8 mg in 250 mls @ 13.125 mls/hr 05/30/25 23:25 06/02/25 07:46 Levophed 8 Mg/D5w 250 Ml IV CONT 7 mcg/min .Q19H3M MARLON 13.13 mls/hr Titration Protocol 7 MCG/MIN Fentanyl Citrate 2,500 mcg in 250 mls @ 5 mls/hr 05/31/25 03:21 06/02/25 06:48 Fentanyl 2,500 Mcg/Ns 250 Ml IV CONT 50 mcg/hr .Q50H MARLON 5 mls/hr Titration Protocol 50 MCG/HR Metronidazole 500 mg in 100 mls @ 100 mls/hr 05/31/25 13:00 06/02/25 07:33 Flagyl 500 Mg/Iso Soln 100 Ml IVPB Infused Q8HR MARLON Infusion Cefepime HCl 2 gm/ Sodium 50 mls @ 100 mls/hr 06/01/25 03:00 06/02/25 03:33 Chloride IVPB Infused Q24H MARLON Infusion Midazolam HCl 100 mg in 100 mls @ 1 mls/hr 05/31/25 10:30 06/02/25 06:48 Versed 100 Mg/Ns 100 Ml IV CONT 1 mg/hr .Q72H MARLON 1 mls/hr Titration Protocol 1 MG/HR Dextrose 1,000 mls @ 100 mls/hr 05/31/25 10:14 Dextrose 5% 1,000 Ml IVPB PRN PRN Hypoglycemia Protocol Dextrose 1,000 mls @ 75 mls/hr 06/01/25 19:40 06/01/25 20:03 Dextrose 5% 1,000 Ml IV CONT 50 mls/hr .[id number] MARLON Administration Potassium Chloride 40 meq/ 520 mls @ 130 mls/hr 06/02/25 08:10 Dextrose IVPB 06/02/25 12:09 ONCE ONE Vancomycin HCl 750 mg/ 250 mls @ 250 mls/hr 06/02/25 10:00 Dextrose IVPB 06/02/25 10:59 ONCE ONE Insulin Aspart 2 - 5 units 05/31/25 12:00 06/02/25 06:18 Insulin Aspart (*Bkc) 100 Units/Ml SUB-Q Not Given Q6HR MARLON Protocol Multi-Ingred Cream/Lotion/Oil/Oint 1 applic 05/31/25 21:00 06/01/25 20:03 Mineral Oil/White Petrolatum Ointment EACH EYE 1 applic Q12HR MARLON Administration Pantoprazole Sodium 40 mg 05/31/25 09:00 06/01/25 20:02 Pantoprazole Sodium Iv 40 Mg Vial IV PUSH 40 mg Q12HR MARLON Administration Perflutren Lipid Microsphere 0 ml 06/02/25 08:08 Perflutren Lipid Microspheres 1.5 Ml Vial Diluted To 10 Ml Total Volume IV PUSH 06/05/25 08:09 ONCE PRN adequate visualization Protocol Sodium Chloride 10 ml 05/31/25 06:00 06/02/25 06:07 Central Line Flush IV PUSH 10 ml Q8HR MARLON Administration Sodium Chloride 20 ml 05/30/25 23:54 Central Line Flush IV PUSH PRN PRN after blood draws Valproate Sodium 750 mg 06/01/25 21:00 06/01/25 20:02 Valproic Acid Liq 250 Mg/5 Ml Oral Solution Udc PO 750 mg HS MALRON Administration Vancomycin HCl 1 each 06/02/25 08:26 Vancomycin For Acute Kidney Injury IVPB PRN PRN Vancomycin Protocol Radiology Results: ITS Impressions Chest/Abdomen/Pelvis CT 05/31/25 05:43 Impression: Complete right middle and lower lobe consolidation with a tree-in-bud and centrilobular nodules in the right upper lobe. Findings are compatible with extensive aspiration pneumonia, with fluid opacification of bronchus intermedius. Possible mild wall thickening extensively involving large bowel, as detailed above. Correlate for infectious/inflammatory colitis versus underdistention. Head CT 05/31/25 05:43 Impression: No intracranial abnormality seen. Sinus disease, as above. Abdomen X-Ray 05/31/25 09:28 IMPRESSION: 1: NG tube tip in the stomach. Renal Ultrasound 05/31/25 13:15 IMPRESSION: No abnormality seen in the kidneys. Reed's catheter seen in the urinary bladder. Chest X-Ray 06/02/25 06:01 Impression: Stable extensive right basilar consolidation, compatible with pneumonia. Stable support tubes. Labs Labs: Laboratory Results - last 24 hr 05/31/25 05/31/25 06/01/25 00:12 09:23 05:36 WBC RBC Hgb Hct MCV MCH MCHC RDW Plt Count MPV Immature Gran % (Auto) Neut % (Auto) Lymph % (Auto) [place] % (Auto) Eos % (Auto) Baso % (Auto) Lymph # (Auto) [place] # (Auto) Eos # (Auto) Baso # (Auto) Abs Immat Gran (auto) Absolute Neuts (auto) Absolute Nucleated RBC Total Counted Neutrophils % (Manual) Band Neutrophils % Lymphocytes % (Manual) Monocytes % (Manual) Nucleated RBC % Abs Neuts (Manual) Abs Lymphs (Manual) Abs Monocytes (Manual) Platelet Estimate Anisocytosis Schistocytes Puncture Site ABG pH ABG pCO2 ABG pO2 ABG PO2/FiO2 Ratio ABG HCO3 ABG O2 Saturation ABG O2 Content ABG Base Excess A-a Gradient Oxyhemoglobin Carboxyhemoglobin Methemoglobin Reduced Hemoglobin Total Hemoglobin O2 Delivery Device O2 Liters/Min Minute Volume Vent Rate Vent Mode FiO2 Tidal Volume PEEP Peak Inspir Pressure Pressure Support Sodium Potassium Chloride Carbon Dioxide Anion Gap BUN Creatinine Estim Creat Clear Calc Estimated GFR Glucose POC Capillary Glucose Calcium Phosphorus Magnesium Iron TIBC % Saturation Total Bilirubin AST ALT Alkaline Phosphatase Total Protein Albumin Vitamin B12 Folate Free T4 Urine Osmolality 541 616 Crossmatch See Detail 06/01/25 06/01/25 06/01/25 08:34 11:45 13:13 WBC RBC Hgb Hct MCV MCH MCHC RDW Plt Count MPV Immature Gran % (Auto) Neut % (Auto) Lymph % (Auto) [place] % (Auto) Eos % (Auto) Baso % (Auto) Lymph # (Auto) [place] # (Auto) Eos # (Auto) Baso # (Auto) Abs Immat Gran (auto) Absolute Neuts (auto) Absolute Nucleated RBC Total Counted Neutrophils % (Manual) Band Neutrophils % Lymphocytes % (Manual) Monocytes % (Manual) Nucleated RBC % Abs Neuts (Manual) Abs Lymphs (Manual) Abs Monocytes (Manual) Platelet Estimate Anisocytosis Schistocytes Puncture Site ABG pH ABG pCO2 ABG pO2 ABG PO2/FiO2 Ratio ABG HCO3 ABG O2 Saturation ABG O2 Content ABG Base Excess A-a Gradient Oxyhemoglobin Carboxyhemoglobin Methemoglobin Reduced Hemoglobin Total Hemoglobin O2 Delivery Device O2 Liters/Min Minute Volume Vent Rate Vent Mode FiO2 Tidal Volume PEEP Peak Inspir Pressure Pressure Support Sodium 160 H Potassium 3.2 L Chloride 128 H Carbon Dioxide 22 Anion Gap 10 BUN 74 H Creatinine 2.02 H Estim Creat Clear Calc 22 Estimated GFR 25 L Glucose 98 POC Capillary Glucose 102 Calcium 8.8 Phosphorus Magnesium Iron 49 TIBC 102 L % Saturation 48 Total Bilirubin AST ALT Alkaline Phosphatase Total Protein Albumin Vitamin B12 967.0 H Folate 12.7 Free T4 1.13 Urine Osmolality Crossmatch 06/01/25 06/01/25 06/01/25 17:12 17:14 23:20 WBC RBC Hgb Hct MCV MCH MCHC RDW Plt Count MPV Immature Gran % (Auto) Neut % (Auto) Lymph % (Auto) [place] % (Auto) Eos % (Auto) Baso % (Auto) Lymph # (Auto) [place] # (Auto) Eos # (Auto) Baso # (Auto) Abs Immat Gran (auto) Absolute Neuts (auto) Absolute Nucleated RBC Total Counted Neutrophils % (Manual) Band Neutrophils % Lymphocytes % (Manual) Monocytes % (Manual) Nucleated RBC % Abs Neuts (Manual) Abs Lymphs (Manual) Abs Monocytes (Manual) Platelet Estimate Anisocytosis Schistocytes Puncture Site ABG pH ABG pCO2 ABG pO2 ABG PO2/FiO2 Ratio ABG HCO3 ABG O2 Saturation ABG O2 Content ABG Base Excess A-a Gradient Oxyhemoglobin Carboxyhemoglobin Methemoglobin Reduced Hemoglobin Total Hemoglobin O2 Delivery Device O2 Liters/Min Minute Volume Vent Rate Vent Mode FiO2 Tidal Volume PEEP Peak Inspir Pressure Pressure Support Sodium 160 H Potassium 3.3 L Chloride 127 H Carbon Dioxide 21 L Anion Gap 12 BUN 69 H Creatinine 1.98 H Estim Creat Clear Calc 22 Estimated GFR 26 L Glucose 97 POC Capillary Glucose 79 96 Calcium 9.0 Phosphorus Magnesium Iron TIBC % Saturation Total Bilirubin AST ALT Alkaline Phosphatase Total Protein Albumin Vitamin B12 Folate Free T4 Urine Osmolality Crossmatch 06/02/25 06/02/25 06/02/25 00:21 04:19 06:07 WBC 22.5 H RBC 2.99 L Hgb 8.7 L Hct 28.0 L MCV 93.6 D MCH 29.1 D MCHC 31.1 L RDW 18.3 H Plt Count 264 MPV 12.5 H Immature Gran % (Auto) Not Reportable Neut % (Auto) Not Reportable Lymph % (Auto) Not Reportable [place] % (Auto) Not Reportable Eos % (Auto) Not Reportable Baso % (Auto) Not Reportable Lymph # (Auto) Not Reportable [place] # (Auto) Not Reportable Eos # (Auto) Not Reportable Baso # (Auto) Not Reportable Abs Immat Gran (auto) Not Reportable Absolute Neuts (auto) Not Reportable Absolute Nucleated RBC Not Reportable Total Counted 100 Neutrophils % (Manual) 80 H Band Neutrophils % 12 H Lymphocytes % (Manual) 6 L Monocytes % (Manual) 2 L Nucleated RBC % Not Reportable Abs Neuts (Manual) 20.70 H Abs Lymphs (Manual) 1.35 Abs Monocytes (Manual) 0.45 Platelet Estimate Adequate Anisocytosis 1+ Schistocytes None seen Puncture Site Left radial ABG pH 7.482 H ABG pCO2 24.5 L ABG pO2 64.7 L ABG PO2/FiO2 Ratio 1.85 ABG HCO3 17.9 L ABG O2 Saturation 94.4 L ABG O2 Content 17.4 ABG Base Excess -3.8 A-a Gradient 156.4 Oxyhemoglobin 91.5 Carboxyhemoglobin 0.7 Methemoglobin 0.3 Reduced Hemoglobin 7.5 H Total Hemoglobin 13.5 O2 Delivery Device Ventilator O2 Liters/Min Not Reportable Minute Volume Not Reportable Vent Rate 20 Vent Mode Cmv FiO2 35 Tidal Volume 350 PEEP 8 Peak Inspir Pressure Not Reportable Pressure Support Not Reportable Sodium 159 H 162 H* Potassium 3.1 L 3.0 L Chloride 127 H 129 H Carbon Dioxide 22 22 Anion Gap 10 11 BUN 62 H 60 H Creatinine 1.91 H 1.77 H Estim Creat Clear Calc 23 25 Estimated GFR 27 L 29 L Glucose 100 98 POC Capillary Glucose Calcium 8.6 8.6 Phosphorus 3.5 Magnesium 2.2 Iron TIBC % Saturation Total Bilirubin 0.4 AST 64 H ALT 38 H Alkaline Phosphatase 94 Total Protein 5.9 L Albumin 2.9 L Vitamin B12 Folate Free T4 Urine Osmolality Crossmatch 06/02/25 06:10 WBC RBC Hgb Hct MCV MCH MCHC RDW Plt Count MPV Immature Gran % (Auto) Neut % (Auto) Lymph % (Auto) [place] % (Auto) Eos % (Auto) Baso % (Auto) Lymph # (Auto) [place] # (Auto) Eos # (Auto) Baso # (Auto) Abs Immat Gran (auto) Absolute Neuts (auto) Absolute Nucleated RBC Total Counted Neutrophils % (Manual) Band Neutrophils % Lymphocytes % (Manual) Monocytes % (Manual) Nucleated RBC % Abs Neuts (Manual) Abs Lymphs (Manual) Abs Monocytes (Manual) Platelet Estimate Anisocytosis Schistocytes Puncture Site ABG pH ABG pCO2 ABG pO2 ABG PO2/FiO2 Ratio ABG HCO3 ABG O2 Saturation ABG O2 Content ABG Base Excess A-a Gradient Oxyhemoglobin Carboxyhemoglobin Methemoglobin Reduced Hemoglobin Total Hemoglobin O2 Delivery Device O2 Liters/Min Minute Volume Vent Rate Vent Mode FiO2 Tidal Volume PEEP Peak Inspir Pressure Pressure Support Sodium Potassium Chloride Carbon Dioxide Anion Gap BUN Creatinine Estim Creat Clear Calc Estimated GFR Glucose POC Capillary Glucose 99 Calcium Phosphorus Magnesium Iron TIBC % Saturation Total Bilirubin AST ALT Alkaline Phosphatase Total Protein Albumin Vitamin B12 Folate Free T4 Urine Osmolality Crossmatch
[2025-06-02] MEDS: PANTOPRAZOLE SODIUM IV 40 MG VIAL IV PUSH ×2 (09:29→20:51)
[2025-06-02] MEDS: MINERAL OIL/WHITE PETROLATUM OINTMENT 1 APPLIC EACH EYE ×2 (09:30→20:52)
[2025-06-02 10:08] LABS: Triiodothyronine (T3), Free 1.1 pg/mL (2.0-4.4)
--- NOTE | 2025-06-02 11:12 | PCNFU ---
Nutrition Follow-Up Complete: 1. Inadequate energy intake related to mechanical ventilation as evidenced by NPO 2. Severe protein calorie malnutrition related to inadequate intake as evidenced by weight loss 23%/3 months; intakes <75% needs >1 month Goal: Meet estimated nutrition needs Patient will continue current goal. Pt current nutrition is NPO. Nutrition recommendation: Vital AF 1.2 at 20 ml/hr advance to 40 ml/hr at this time. Last recorded weight is 51.6 kg, stable Bowel Motility: No BM reported. Labs Reviewed: Cr 1.77, BUN 60, Na 162, Hct 28.0, Hgb 8.7 Meds Noted: Levophed, Fentanyl, Flagyl, Heparin, Dextrose 5%. Skin: WNL Additional Notes: Patient remains on mechanical vent. PEG tube present. Spoke with nursing today, plans for EGD. Tube feeding recommendations Vital AF 1.2 at 20 ml/hr advance by 10 ml q 4 hours to goal rate of 40 ml/hr by Day 3. End goal 50 ml/hr providing 1320kcal/83 gm protein/892 ml water. Flush 30 ml q 4 hours if IV fluids continue and Na remains at 162. Monitoring meds, vitals, labs, orders, weights, output, plan of care Follow up Thursday/Thursday.
--- NOTE | 2025-06-02 11:34 | P.PNNP_ITS ---
Progress Note: A&P Assessment and Plan (1) Hypernatremia: Code(s): E87.0 - Hyperosmolality and hypernatremia Status: Acute Assessment and Plan: * high sodium * significant free water deficit noted (~ 5.5 - 6.0 liters...) * presumably this change in sodium occurred over several days if not longer (chronic) * goal of therapy would be a change in sodium ~ 10 - 12mmol/L in 24 hours -- being achieved * osmo pending * UA shows a high specific gravity. so not DI. * sodium improved yesterday with d5w and with TFs plus TF flushes. * however the PEG leaked so not NPO and sodium is up a bit * will increase D5W and repeat the sodium level this afternoon (2) Acute renal failure: Code(s): N17.9 - Acute kidney failure, unspecified Status: Acute Assessment and Plan: * MYLA * normal renal function ~ 3 months ago * evaluation to date noted: * renal ultrasound normal * urine electrolytes prerenal * urine eosinophils negative * CPK mildly elevated (not enough to affect kidney function) * suspect multifactorial: * hemodynamic instability/shock * infection/sepsis * diuretic and DOMINGUEZ-I use prior to admission * other(?) * s/p aggressive IVF resuscitation * continue fluids vin with no enteral intake. * adjust rate per sodium but the creatinine looks like it is getting better. * check labs in am (3) Septic shock: Code(s): A41.9 - Sepsis, unspecified organism; R65.21 - Severe sepsis with septic shock Status: Acute Assessment and Plan: * as noted on presentation with acute respiratory failure with tachypnea, hypotension, tachycardia, leukocytosis, and fever * s/p aggressive IVF resuscitation but hypotension persisted * initiated on vasopressor therapy (levophed + vasopressin) * follow culture data * on cefipime, flagyl, and vancomycin * still on pressors. * sbp now in the 80s to 100s (4) Acute hypoxic respiratory failure: Code(s): J96.01 - Acute respiratory failure with hypoxia Status: Acute Assessment and Plan: * as noted on presenation * suspect secondary to aspiration pneumonia * by report, took pills and pudding with subsequent hypoxia, tachypnea, low BP, and fever * intubated in ER and on mechanical ventilation * cxr still shows the infiltrate. * Pulmonary following * s/p bronchoscopy earlier today * weaning once more stable (5) Aspiration pneumonia: Qualifiers: Aspiration pneumonia type: unspecified Laterality: bilateral Lung location: unspecified part of lung Qualified Code(s): J69.0 - Pneumonitis due to inhalation of food and vomit Code(s): J69.0 - Pneumonitis due to inhalation of food and vomit Status: Acute Assessment and Plan: * suspected etiology of #4 and #3 * continue therapy as outlined (6) Anemia: Code(s): D64.9 - Anemia, unspecified Status: Acute Assessment and Plan: * presumably related to MYLA/ARF and acute illness * acute drop in H/H noted * possible coffee gorund emesis via OGT * GI recommendations noted -- EGD tomorrow * PRBC transfusion per protocol * follow trend of H/H Subjective Date/time seen: 06/02/25 11:34 Interval history: on vent. looks comfortable on pressors, sedatives, potassium, ivfs. Exam Narrative: General: ill appearing female intubated/sedated and on mechanical ventilation Heart: normal S1 and S2; no rub Lungs: coarse breath sounds Abdomen: soft, nontender, nondistended, positive bowel sounds Extremities: no cyanosis or clubbing; trace edema Skin: warm and dry Objective Data Vital Signs Vital Signs: Vital Signs - 24 hr 06/01/25 11:43 06/01/25 12:00 06/01/25 12:00 Temperature 98.6 F 98.4 F Pulse Rate 92 66 61 Respiratory Rate 18 19 Blood Pressure 107/71 109/64 125/65 Pulse Oximetry 97 95 Oxygen Delivery Fraction of Inspired Oxygen 06/01/25 12:00 06/01/25 12:00 06/01/25 12:00 Temperature Pulse Rate 61 61 61 Respiratory Rate 19 19 Blood Pressure 125/65 Pulse Oximetry Oxygen Delivery Fraction of Inspired Oxygen 06/01/25 12:00 06/01/25 12:00 06/01/25 12:00 Temperature Pulse Rate 60 62 Respiratory Rate 20 Blood Pressure Pulse Oximetry 97 Oxygen Delivery Mechanical Ventilation Fraction of Inspired Oxygen 35 35 06/01/25 12:05 06/01/25 13:26 06/01/25 14:00 Temperature Pulse Rate 59 L 59 L 59 L Respiratory Rate Blood Pressure 86/52 L 86/52 L Pulse Oximetry Oxygen Delivery Fraction of Inspired Oxygen 06/01/25 14:00 06/01/25 14:00 06/01/25 14:00 Temperature 98.8 F Pulse Rate 59 L 60 60 Respiratory Rate 20 20 Blood Pressure 108/66 108/66 Pulse Oximetry 97 Oxygen Delivery Fraction of Inspired Oxygen 06/01/25 14:00 06/01/25 14:00 06/01/25 14:17 Temperature Pulse Rate 60 60 Respiratory Rate 18 18 Blood Pressure 108/66 Pulse Oximetry Oxygen Delivery Fraction of Inspired Oxygen 06/01/25 14:21 06/01/25 16:00 06/01/25 16:00 Temperature Pulse Rate 61 63 63 Respiratory Rate 18 Blood Pressure 116/68 Pulse Oximetry 98 Oxygen Delivery Mechanical Ventilation Fraction of Inspired Oxygen 35 06/01/25 16:00 06/01/25 16:00 06/01/25 16:00 Temperature 99.0 F Pulse Rate 63 63 63 Respiratory Rate 18 18 Blood Pressure 116/68 116/68 Pulse Oximetry 96 Oxygen Delivery Fraction of Inspired Oxygen 06/01/25 16:00 06/01/25 16:00 06/01/25 16:00 Temperature Pulse Rate 63 63 Respiratory Rate 18 Blood Pressure Pulse Oximetry 96 Oxygen Delivery Mechanical Ventilation Fraction of Inspired Oxygen 35 35 06/01/25 16:42 06/01/25 18:00 06/01/25 18:00 Temperature Pulse Rate 63 61 91 Respiratory Rate 18 Blood Pressure 118/78 Pulse Oximetry 96 Oxygen Delivery Mechanical Ventilation Fraction of Inspired Oxygen 35 06/01/25 18:00 06/01/25 18:00 06/01/25 18:00 Temperature Pulse Rate 61 61 61 Respiratory Rate 18 Blood Pressure 118/78 Pulse Oximetry Oxygen Delivery Fraction of Inspired Oxygen 06/01/25 18:00 06/01/25 18:43 06/01/25 18:43 Temperature 99.1 F Pulse Rate 61 62 62 Respiratory Rate 19 18 18 Blood Pressure 118/78 Pulse Oximetry 97 Oxygen Delivery Fraction of Inspired Oxygen 06/01/25 19:40 06/01/25 19:40 06/01/25 19:45 Temperature 99.3 F 99.3 F Pulse Rate 61 63 61 Respiratory Rate 20 20 Blood Pressure 125/66 125/66 109/64 Pulse Oximetry 96 96 Oxygen Delivery Fraction of Inspired Oxygen 06/01/25 20:00 06/01/25 20:00 06/01/25 20:00 Temperature 99.3 F Pulse Rate 60 59 L Respiratory Rate 20 Blood Pressure 108/65 108/65 Pulse Oximetry 96 Oxygen Delivery Fraction of Inspired Oxygen 35 06/01/25 20:00 06/01/25 20:00 06/01/25 20:00 Temperature Pulse Rate 60 61 62 Respiratory Rate 19 19 Blood Pressure Pulse Oximetry Oxygen Delivery Fraction of Inspired Oxygen 06/01/25 20:15 06/01/25 20:15 06/01/25 20:17 Temperature 99.3 F Pulse Rate 83 77 83 Respiratory Rate 21 H 20 Blood Pressure 116/77 Pulse Oximetry 98 95 98 Oxygen Delivery Mechanical Ventilation Mechanical Ventilation Fraction of Inspired Oxygen 35 35 06/01/25 20:17 06/01/25 22:00 06/01/25 22:00 Temperature 99.1 F Pulse Rate 83 60 60 Respiratory Rate 21 H 20 Blood Pressure 98/59 L Pulse Oximetry 94 Oxygen Delivery Fraction of Inspired Oxygen 06/01/25 22:00 06/01/25 22:00 06/01/25 22:00 Temperature Pulse Rate 60 62 60 Respiratory Rate 20 18 Blood Pressure 103/69 Pulse Oximetry Oxygen Delivery Fraction of Inspired Oxygen 06/01/25 23:14 06/01/25 23:35 06/02/25 00:00 Temperature Pulse Rate 59 L 62 61 Respiratory Rate 21 H Blood Pressure 106/58 L Pulse Oximetry 98 94 Oxygen Delivery Mechanical Ventilation Mechanical Ventilation Fraction of Inspired Oxygen 35 35 06/02/25 00:00 06/02/25 00:00 06/02/25 00:00 Temperature 99.1 F Pulse Rate 61 61 60 Respiratory Rate 18 18 22 H Blood Pressure 106/58 L Pulse Oximetry 95 Oxygen Delivery Fraction of Inspired Oxygen 06/02/25 00:00 06/02/25 00:00 06/02/25 00:15 Temperature Pulse Rate 60 62 Respiratory Rate Blood Pressure 106/59 L Pulse Oximetry Oxygen Delivery Fraction of Inspired Oxygen 35 06/02/25 00:15 06/02/25 00:28 06/02/25 00:28 Temperature 99.1 F Pulse Rate 61 63 63 Respiratory Rate 20 22 H 22 H Blood Pressure 106/59 L Pulse Oximetry 94 Oxygen Delivery Fraction of Inspired Oxygen 06/02/25 00:30 06/02/25 01:33 06/02/25 01:33 Temperature 99 F Pulse Rate 62 56 L 56 L Respiratory Rate 21 H 20 Blood Pressure 95/54 L Pulse Oximetry 94 100 Oxygen Delivery Mechanical Ventilation Fraction of Inspired Oxygen 35 06/02/25 01:38 06/02/25 02:00 06/02/25 02:00 Temperature 98.5 F Pulse Rate 57 L 66 65 Respiratory Rate 20 20 Blood Pressure 96/56 L Pulse Oximetry 95 Oxygen Delivery Fraction of Inspired Oxygen 06/02/25 02:00 06/02/25 02:00 06/02/25 02:00 Temperature Pulse Rate 64 64 63 Respiratory Rate 20 20 Blood Pressure 96/56 L Pulse Oximetry Oxygen Delivery Fraction of Inspired Oxygen 06/02/25 03:00 06/02/25 03:00 06/02/25 03:57 Temperature Pulse Rate 69 64 57 L Respiratory Rate 20 Blood Pressure 96/55 L 96/55 L Pulse Oximetry 96 Oxygen Delivery Mechanical Ventilation Fraction of Inspired Oxygen 35 06/02/25 03:59 06/02/25 04:00 06/02/25 04:00 Temperature Pulse Rate 59 L 65 Respiratory Rate 20 Blood Pressure 111/65 Pulse Oximetry Oxygen Delivery Fraction of Inspired Oxygen 35 06/02/25 04:00 06/02/25 04:00 06/02/25 04:00 Temperature 97.9 F Pulse Rate 63 60 63 Respiratory Rate 20 20 Blood Pressure 111/65 Pulse Oximetry 96 Oxygen Delivery Fraction of Inspired Oxygen 06/02/25 04:53 06/02/25 06:00 06/02/25 06:00 Temperature 97.6 F Pulse Rate 60 100 100 Respiratory Rate 20 20 Blood Pressure 66/43 L Pulse Oximetry 95 97 Oxygen Delivery Mechanical Ventilation Fraction of Inspired Oxygen 35 06/02/25 06:00 06/02/25 06:00 06/02/25 06:00 Temperature Pulse Rate 100 100 55 L Respiratory Rate 20 Blood Pressure 66/43 L Pulse Oximetry Oxygen Delivery Fraction of Inspired Oxygen 06/02/25 06:03 06/02/25 06:11 06/02/25 06:17 Temperature 97.6 F 97.6 F Pulse Rate 51 L 56 L 55 L Respiratory Rate 21 H 20 20 Blood Pressure 106/67 119/68 Pulse Oximetry 98 98 Oxygen Delivery Fraction of Inspired Oxygen 06/02/25 06:45 06/02/25 06:48 06/02/25 06:48 Temperature Pulse Rate 55 L 53 L 53 L Respiratory Rate 20 20 Blood Pressure 120/69 Pulse Oximetry Oxygen Delivery Fraction of Inspired Oxygen 06/02/25 07:46 06/02/25 08:00 06/02/25 08:00 Temperature Pulse Rate 57 L 52 L 52 L Respiratory Rate 21 H 21 H Blood Pressure 110/68 Pulse Oximetry Oxygen Delivery Fraction of Inspired Oxygen 06/02/25 08:00 06/02/25 08:00 06/02/25 08:00 Temperature 97.3 F L Pulse Rate 51 L 52 L Respiratory Rate 21 H Blood Pressure 96/63 L Pulse Oximetry 96 Oxygen Delivery Fraction of Inspired Oxygen 35 06/02/25 08:00 06/02/25 08:18 06/02/25 08:22 Temperature Pulse Rate 49 L 49 L Respiratory Rate 17 Blood Pressure Pulse Oximetry 100 96 Oxygen Delivery Mechanical Ventilation Mechanical Ventilation Fraction of Inspired Oxygen 35 35 06/02/25 08:39 06/02/25 09:30 06/02/25 10:00 Temperature Pulse Rate 72 54 L 48 L Respiratory Rate 20 Blood Pressure 103/62 Pulse Oximetry Oxygen Delivery Fraction of Inspired Oxygen 06/02/25 10:00 06/02/25 10:00 06/02/25 10:20 Temperature 97.1 F L Pulse Rate 52 L 54 L 54 L Respiratory Rate 16 16 16 Blood Pressure 94/52 L Pulse Oximetry 100 Oxygen Delivery Fraction of Inspired Oxygen 06/02/25 10:20 06/02/25 11:17 06/02/25 11:24 Temperature Pulse Rate 56 L 59 L 52 L Respiratory Rate Blood Pressure 103/60 103/60 Pulse Oximetry 100 Oxygen Delivery Mechanical Ventilation Fraction of Inspired Oxygen 35 Intake/Output Intake/Output: Intake & Output 05/30/25 05/31/25 06/01/25 06/02/25 23:59 23:59 23:59 23:59 Intake Total 7.6 3924.8 1677.0 1210.3 Output Total 425 1240 950 Balance 7.6 3499.8 437.0 260.3 Meds/Results Medications: Active Medications Generic Name Dose Route Start Last Admin Trade Name Freq PRN Reason Stop Dose Admin Acetaminophen 650 mg 05/31/25 07:12 05/31/25 12:14 Acetaminophen Elixir 325 Mg/10.15 Ml Udc PO 650 mg Q6H PRN Administration Mild Pain (1-3) or Fever Acetylcysteine 200 mg 05/31/25 14:00 06/02/25 08:16 Acetylcysteine 20% Inhal Soln 800 Mg/4 Ml Vial INHALATION 200 mg Q6HRT MARLON Administration Albuterol/Ipratropium 3 ml 05/31/25 14:00 06/02/25 08:16 Ipratropium 0.5 Mg/Albuterol Sulfate 2.5 Mg Ampul.Neb 3 Ml INHALATION 3 ml Q6HRT MARLON Administration Dextrose 12.5 gm 05/31/25 10:14 Dextrose 50% 25 Gm/50 Ml Syringe IV PUSH PRN PRN Hypoglycemia Protocol Dornase Merlin 2.5 mg 05/31/25 11:30 06/02/25 08:36 Dornase Merlin Inh Soln 1 Mg/Ml 2.5 Ml Amp INHALATION 2.5 mg Q12HRT MARLON Administration Glucagon 1 mg 05/31/25 10:14 Glucagon For Inj 1 Mg Vial IM PRN PRN Hypoglycemia Protocol Glucose 15 gm 05/31/25 10:14 Glucose Oral Gel 15 Gm Of Glucse In 37.5 Gm Tube PO PRN PRN Hypoglycemia Protocol Heparin Sodium (Porcine) 5,000 units 05/31/25 09:00 05/31/25 20:24 Heparin Sodium 5,000 Units/Ml Vial SUB-Q 5,000 units Q12HR MARLON Administration Norepinephrine Bitartrate 8 mg in 250 mls @ 7.5 mls/hr 05/30/25 23:25 06/02/25 11:17 Levophed 8 Mg/D5w 250 Ml IV CONT 4 mcg/min .Q24H MARLON 7.5 mls/hr Titration Protocol 4 MCG/MIN Fentanyl Citrate 2,500 mcg in 250 mls @ 15 mls/hr 05/31/25 03:21 06/02/25 10:00 Fentanyl 2,500 Mcg/Ns 250 Ml IV CONT 50 mcg/hr .[id number] MARLON 5 mls/hr Titration Protocol 150 MCG/HR Metronidazole 500 mg in 100 mls @ 100 mls/hr 05/31/25 13:00 06/02/25 07:33 Flagyl 500 Mg/Iso Soln 100 Ml IVPB Infused Q8HR MARLON Infusion Cefepime HCl 2 gm/ Sodium 50 mls @ 100 mls/hr 06/01/25 03:00 06/02/25 03:33 Chloride IVPB Infused Q24H MARLON Infusion Midazolam HCl 100 mg in 100 mls @ 0 mls/hr 05/31/25 10:30 06/02/25 10:20 Versed 100 Mg/Ns 100 Ml IV CONT 0 mg/hr .Q0M MARLON 0 mls/hr Titration Protocol 0 MG/HR Dextrose 1,000 mls @ 100 mls/hr 05/31/25 10:14 Dextrose 5% 1,000 Ml IVPB PRN PRN Hypoglycemia Protocol Dextrose 1,000 mls @ 150 mls/hr 06/01/25 19:40 06/02/25 09:27 Dextrose 5% 1,000 Ml IV CONT 150 mls/hr .Q6H40M MARLON Infusion Potassium Chloride 40 meq/ 520 mls @ 130 mls/hr 06/02/25 08:10 06/02/25 09:00 Dextrose IVPB 06/02/25 12:09 130 mls/hr ONCE ONE Administration Insulin Aspart 2 - 5 units 05/31/25 12:00 06/02/25 06:18 Insulin Aspart (*Bkc) 100 Units/Ml SUB-Q Not Given Q6HR MARLON Protocol Multi-Ingred Cream/Lotion/Oil/Oint 1 applic 05/31/25 21:00 06/02/25 09:30 Mineral Oil/White Petrolatum Ointment EACH EYE 1 applic Q12HR MARLON Administration Pantoprazole Sodium 40 mg 05/31/25 09:00 06/02/25 09:29 Pantoprazole Sodium Iv 40 Mg Vial IV PUSH 40 mg Q12HR MARLON Administration Perflutren Lipid Microsphere 0 ml 06/02/25 08:08 Perflutren Lipid Microspheres 1.5 Ml Vial Diluted To 10 Ml Total Volume IV PUSH 06/05/25 08:09 ONCE PRN adequate visualization Protocol Sodium Chloride 10 ml 05/31/25 06:00 06/02/25 06:07 Central Line Flush IV PUSH 10 ml Q8HR MARLON Administration Sodium Chloride 20 ml 05/30/25 23:54 Central Line Flush IV PUSH PRN PRN after blood draws Valproate Sodium 750 mg 06/01/25 21:00 06/01/25 20:02 Valproic Acid Liq 250 Mg/5 Ml Oral Solution Udc PO 750 mg HS MARLON Administration Vancomycin HCl 1 each 06/02/25 08:26 Vancomycin For Acute Kidney Injury IVPB PRN PRN Vancomycin Protocol Radiology Results: ITS Impressions Chest/Abdomen/Pelvis CT 05/31/25 05:43 Impression: Complete right middle and lower lobe consolidation with a tree-in-bud and centrilobular nodules in the right upper lobe. Findings are compatible with extensive aspiration pneumonia, with fluid opacification of bronchus intermedius. Possible mild wall thickening extensively involving large bowel, as detailed above. Correlate for infectious/inflammatory colitis versus underdistention. Head CT 05/31/25 05:43 Impression: No intracranial abnormality seen. Sinus disease, as above. Abdomen X-Ray 05/31/25 09:28 IMPRESSION: 1: NG tube tip in the stomach. Renal Ultrasound 05/31/25 13:15 IMPRESSION: No abnormality seen in the kidneys. Reed's catheter seen in the urinary bladder. Chest X-Ray 06/02/25 06:01 Impression: Stable extensive right basilar consolidation, compatible with pneumonia. Stable support tubes. Labs Labs: Laboratory Results - last 24 hr 05/31/25 05/31/25 06/01/25 00:12 09:23 05:36 WBC RBC Hgb Hct MCV MCH MCHC RDW Plt Count MPV Immature Gran % (Auto) Neut % (Auto) Lymph % (Auto) [place] % (Auto) Eos % (Auto) Baso % (Auto) Lymph # (Auto) [place] # (Auto) Eos # (Auto) Baso # (Auto) Abs Immat Gran (auto) Absolute Neuts (auto) Absolute Nucleated RBC Total Counted Neutrophils % (Manual) Band Neutrophils % Lymphocytes % (Manual) Monocytes % (Manual) Nucleated RBC % Abs Neuts (Manual) Abs Lymphs (Manual) Abs Monocytes (Manual) Platelet Estimate Anisocytosis Schistocytes Puncture Site ABG pH ABG pCO2 ABG pO2 ABG PO2/FiO2 Ratio ABG HCO3 ABG O2 Saturation ABG O2 Content ABG Base Excess A-a Gradient Oxyhemoglobin Carboxyhemoglobin Methemoglobin Reduced Hemoglobin Total Hemoglobin O2 Delivery Device O2 Liters/Min Minute Volume Vent Rate Vent Mode FiO2 Tidal Volume PEEP Peak Inspir Pressure Pressure Support Sodium Potassium Chloride Carbon Dioxide Anion Gap BUN Creatinine Estim Creat Clear Calc Estimated GFR Glucose POC Capillary Glucose Calcium Phosphorus Magnesium Total Bilirubin AST ALT Alkaline Phosphatase Total Protein Albumin Free T3 pg/mL Urine Osmolality 541 616 Crossmatch See Detail 06/01/25 06/01/25 06/01/25 08:33 11:45 13:13 WBC RBC Hgb Hct MCV MCH MCHC RDW Plt Count MPV Immature Gran % (Auto) Neut % (Auto) Lymph % (Auto) [place] % (Auto) Eos % (Auto) Baso % (Auto) Lymph # (Auto) [place] # (Auto) Eos # (Auto) Baso # (Auto) Abs Immat Gran (auto) Absolute Neuts (auto) Absolute Nucleated RBC Total Counted Neutrophils % (Manual) Band Neutrophils % Lymphocytes % (Manual) Monocytes % (Manual) Nucleated RBC % Abs Neuts (Manual) Abs Lymphs (Manual) Abs Monocytes (Manual) Platelet Estimate Anisocytosis Schistocytes Puncture Site ABG pH ABG pCO2 ABG pO2 ABG PO2/FiO2 Ratio ABG HCO3 ABG O2 Saturation ABG O2 Content ABG Base Excess A-a Gradient Oxyhemoglobin Carboxyhemoglobin Methemoglobin Reduced Hemoglobin Total Hemoglobin O2 Delivery Device O2 Liters/Min Minute Volume Vent Rate Vent Mode FiO2 Tidal Volume PEEP Peak Inspir Pressure Pressure Support Sodium 160 H Potassium 3.2 L Chloride 128 H Carbon Dioxide 22 Anion Gap 10 BUN 74 H Creatinine 2.02 H Estim Creat Clear Calc 22 Estimated GFR 25 L Glucose 98 POC Capillary Glucose 102 Calcium 8.8 Phosphorus Magnesium Total Bilirubin AST ALT Alkaline Phosphatase Total Protein Albumin Free T3 pg/mL 1.1 L Urine Osmolality Crossmatch 06/01/25 06/01/25 06/01/25 17:12 17:14 23:20 WBC RBC Hgb Hct MCV MCH MCHC RDW Plt Count MPV Immature Gran % (Auto) Neut % (Auto) Lymph % (Auto) [place] % (Auto) Eos % (Auto) Baso % (Auto) Lymph # (Auto) [place] # (Auto) Eos # (Auto) Baso # (Auto) Abs Immat Gran (auto) Absolute Neuts (auto) Absolute Nucleated RBC Total Counted Neutrophils % (Manual) Band Neutrophils % Lymphocytes % (Manual) Monocytes % (Manual) Nucleated RBC % Abs Neuts (Manual) Abs Lymphs (Manual) Abs Monocytes (Manual) Platelet Estimate Anisocytosis Schistocytes Puncture Site ABG pH ABG pCO2 ABG pO2 ABG PO2/FiO2 Ratio ABG HCO3 ABG O2 Saturation ABG O2 Content ABG Base Excess A-a Gradient Oxyhemoglobin Carboxyhemoglobin Methemoglobin Reduced Hemoglobin Total Hemoglobin O2 Delivery Device O2 Liters/Min Minute Volume Vent Rate Vent Mode FiO2 Tidal Volume PEEP Peak Inspir Pressure Pressure Support Sodium 160 H Potassium 3.3 L Chloride 127 H Carbon Dioxide 21 L Anion Gap 12 BUN 69 H Creatinine 1.98 H Estim Creat Clear Calc 22 Estimated GFR 26 L Glucose 97 POC Capillary Glucose 79 96 Calcium 9.0 Phosphorus Magnesium Total Bilirubin AST ALT Alkaline Phosphatase Total Protein Albumin Free T3 pg/mL Urine Osmolality Crossmatch 06/02/25 06/02/25 06/02/25 00:21 04:19 06:07 WBC 22.5 H RBC 2.99 L Hgb 8.7 L Hct 28.0 L MCV 93.6 D MCH 29.1 D MCHC 31.1 L RDW 18.3 H Plt Count 264 MPV 12.5 H Immature Gran % (Auto) Not Reportable Neut % (Auto) Not Reportable Lymph % (Auto) Not Reportable [place] % (Auto) Not Reportable Eos % (Auto) Not Reportable Baso % (Auto) Not Reportable Lymph # (Auto) Not Reportable [place] # (Auto) Not Reportable Eos # (Auto) Not Reportable Baso # (Auto) Not Reportable Abs Immat Gran (auto) Not Reportable Absolute Neuts (auto) Not Reportable Absolute Nucleated RBC Not Reportable Total Counted 100 Neutrophils % (Manual) 80 H Band Neutrophils % 12 H Lymphocytes % (Manual) 6 L Monocytes % (Manual) 2 L Nucleated RBC % Not Reportable Abs Neuts (Manual) 20.70 H Abs Lymphs (Manual) 1.35 Abs Monocytes (Manual) 0.45 Platelet Estimate Adequate Anisocytosis 1+ Schistocytes None seen Puncture Site Left radial ABG pH 7.482 H ABG pCO2 24.5 L ABG pO2 64.7 L ABG PO2/FiO2 Ratio 1.85 ABG HCO3 17.9 L ABG O2 Saturation 94.4 L ABG O2 Content 17.4 ABG Base Excess -3.8 A-a Gradient 156.4 Oxyhemoglobin 91.5 Carboxyhemoglobin 0.7 Methemoglobin 0.3 Reduced Hemoglobin 7.5 H Total Hemoglobin 13.5 O2 Delivery Device Ventilator O2 Liters/Min Not Reportable Minute Volume Not Reportable Vent Rate 20 Vent Mode Cmv FiO2 35 Tidal Volume 350 PEEP 8 Peak Inspir Pressure Not Reportable Pressure Support Not Reportable Sodium 159 H 162 H* Potassium 3.1 L 3.0 L Chloride 127 H 129 H Carbon Dioxide 22 22 Anion Gap 10 11 BUN 62 H 60 H Creatinine 1.91 H 1.77 H Estim Creat Clear Calc 23 25 Estimated GFR 27 L 29 L Glucose 100 98 POC Capillary Glucose Calcium 8.6 8.6 Phosphorus 3.5 Magnesium 2.2 Total Bilirubin 0.4 AST 64 H ALT 38 H Alkaline Phosphatase 94 Total Protein 5.9 L Albumin 2.9 L Free T3 pg/mL Urine Osmolality Crossmatch 06/02/25 06:10 WBC RBC Hgb Hct MCV MCH MCHC RDW Plt Count MPV Immature Gran % (Auto) Neut % (Auto) Lymph % (Auto) [place] % (Auto) Eos % (Auto) Baso % (Auto) Lymph # (Auto) [place] # (Auto) Eos # (Auto) Baso # (Auto) Abs Immat Gran (auto) Absolute Neuts (auto) Absolute Nucleated RBC Total Counted Neutrophils % (Manual) Band Neutrophils % Lymphocytes % (Manual) Monocytes % (Manual) Nucleated RBC % Abs Neuts (Manual) Abs Lymphs (Manual) Abs Monocytes (Manual) Platelet Estimate Anisocytosis Schistocytes Puncture Site ABG pH ABG pCO2 ABG pO2 ABG PO2/FiO2 Ratio ABG HCO3 ABG O2 Saturation ABG O2 Content ABG Base Excess A-a Gradient Oxyhemoglobin Carboxyhemoglobin Methemoglobin Reduced Hemoglobin Total Hemoglobin O2 Delivery Device O2 Liters/Min Minute Volume Vent Rate Vent Mode FiO2 Tidal Volume PEEP Peak Inspir Pressure Pressure Support Sodium Potassium Chloride Carbon Dioxide Anion Gap BUN Creatinine Estim Creat Clear Calc Estimated GFR Glucose POC Capillary Glucose 99 Calcium Phosphorus Magnesium Total Bilirubin AST ALT Alkaline Phosphatase Total Protein Albumin Free T3 pg/mL Urine Osmolality Crossmatch
[2025-06-02] MEDS: DEXTROSE 5% 1,000 ML 1,000 ML 150 ML IV CONT (12:07)
[2025-06-02] MEDS: PERFLUTREN LIPID MICROSPHERES 1.5 ML VIAL DILUTED TO 10 ML TOTAL VOLUME IV PUSH (12:11)
--- NOTE | 2025-06-02 12:12 | IVDEFINITY ---
Prior to administration of IV Definity the patient was educated on the risks and benefits of the imaging enhancing agent including potential adverse side effects. The patient verbalized understanding. Allergies were verified. No exclusion criteria were identified and at least one of the following inclusion criteria were met: 1) physician request, 2) patient technically difficult to image (per the [place] [employer] guidelines of two or more segments not discernable within the apical view), or 3) questionable left ventricular function. ?
[2025-06-02] MEDS: MIDAZOLAM HCL (*CRX) 2 MG/2 ML VIAL IV PUSH (15:10)
[2025-06-02 16:06] LABS: Anion Gap 8 mmol/L (4-12); Blood Urea Nitrogen 47 mg/dL (7-17); Calcium 8.2 mg/dL (8.4-10.2); Carbon Dioxide 22 mmol/L (22-30); Chloride 123 mmol/L (98-107); Estimated CRCL calculation 29 ml/min; Estimated Glomerular Filt Rate 36; Glucose 183 mg/dL (65-110); Potassium 3.8 mmol/L (3.4-5.0); Sodium 153 mmol/L (137-145)
--- NOTE | 2025-06-02 16:19 | WNDPHOTO ---
PHOTO ONLY - See Nursing Notes and/ or assessments for documentation.
[2025-06-02] MEDS: SODIUM CHLORIDE 0.45% 1,000 ML 50 ML IV CONT (17:20)
[2025-06-02] MEDS: VALPROIC ACID LIQ 250 MG/5 ML ORAL SOLUTION UDC 750 MG PO (20:51)
[2025-06-02 21:21] LABS: Anion Gap 8 mmol/L (4-12); Blood Urea Nitrogen 43 mg/dL (7-17); Calcium 8.4 mg/dL (8.4-10.2); Carbon Dioxide 23 mmol/L (22-30); Chloride 123 mmol/L (98-107); Estimated CRCL calculation 30 ml/min; Estimated Glomerular Filt Rate 36; Glucose 89 mg/dL (65-110); Potassium 3.8 mmol/L (3.4-5.0); Sodium 154 mmol/L (137-145)
--- NOTE | 2025-06-02 21:45 | PC.NURSE ---
Dr. Epperson updated with result of 2100 Na at 2130. Na resulted at 154. Per Dr. Epperson, continue 0.45% NS at 50 mL/hr and redraw Na in the morning. No further updates at this time.
[2025-06-02] MEDS: NOREPINEPHRINE 8 MG/D5W 250 ML 8 MG/250 ML BAG 18.75 MG IV CONT (21:51)
[2025-06-03] VITALS (53 sets, daily range): BP systolic 88–120; BP diastolic 52–68; PULSE 70–119; RESP 16–22; TEMP 37.2–38.3; O2SAT 94–100
[2025-06-03] MEDS: IPRATROPIUM 0.5 MG/ALBUTEROL SULFATE 2.5 MG AMPUL.NEB 3 ML INHALATION ×3 (01:15→19:20)
[2025-06-03] MEDS: ACETYLCYSTEINE 20% INHAL SOLN 800 MG/4 ML VIAL 200 MG INHALATION ×3 (01:15→19:15)
[2025-06-03] MEDS: CEFEPIME 2 GM in SODIUM CHLORIDE 0.9% IV 50 ML 100 ML IVPB (04:18)
[2025-06-03] MEDS: ACETAMINOPHEN ELIXIR 325 MG/10.15 ML UDC 650 MG PO (04:18)
[2025-06-03] MEDS: FENTANYL 2,500MCG/NS250ML(*CRX 2,500 MCG/250 ML BAG IV CONT (04:19)
[2025-06-03 04:37] LABS: Hematocrit 28.2 % (37.0-47.0); Hemoglobin 8.8 g/dL (12.0-15.0); Immature Granulocyte Percent A 0.7 % (0-0.5); Lymphocytes Absolute Auto 1.23 K/mm3 (0.9-3.2); Mean Corpuscular HGB Conc 31.2 g/dl (32-36); Mean Corpuscular Hemoglobin 29.0 pg (26-34); Mean Corpuscular Volume 93.1 fl (80-100); Nucleated Red Blood Cells Absolute Auto 0.080 K/mm3 (0.0-0.012); Nucleated Red Blood Cells Perc 0.4 % (0.0-0.2); Platelet Count Result 267 k/mm3 (150-375); Red Blood Count 3.03 M/mm3 (4.2-5.4); White Blood Count 18.9 K/mm3 (4.5-10.0)
[2025-06-03 05:04] LABS: Alanine Aminotransferase 32 U/L (6-35); Albumin Level 2.7 g/dL (3.5-5.1); Alkaline Phosphatase 132 U/L (38-126); Anion Gap 8 mmol/L (4-12); Aspartate Amino Transferase 60 U/L (14-36); Bilirubin,Total 0.3 mg/dL (0.2-1.3); Blood Urea Nitrogen 38 mg/dL (7-17); Calcium 8.2 mg/dL (8.4-10.2); Carbon Dioxide 24 mmol/L (22-30); Chloride 123 mmol/L (98-107); Estimated CRCL calculation 31 ml/min; Estimated Glomerular Filt Rate 38; Glucose 135 mg/dL (65-110); Magnesium 2.1 mg/dL (1.6-2.3); Potassium 3.8 mmol/L (3.4-5.0); Sodium 155 mmol/L (137-145); Total Protein 5.7 g/dL (6.3-8.2)
[2025-06-03 05:13] LABS: Alveolar/Arterial O2 Gradient 126.7 mmHg; Carboxyhemoglobin 0.3 % THb (0-2.0); Fractional Inspired Oxygen 35 %; HCO3 ABG 22.4 mEq/l (22.0-26.0); Methemoglobin ABG 0.2 %THb (0-1.5); Modified Allen's Test Pass; Oxygen Content ABG 12.7 %vol (16.0-22.0); Oxygen Saturation ABG 96.1 % (95.0-100.0); PCO2 ABG 36.0 mmHg (35.0-45.0); PO2 ABG 81.0 mmHg (80.0-100.0); PO2 FiO2 Ratio Arterial Blood 2.31 %; Reduced Hemoglobin 4.2 %THb (0-5.0); Site Drawn RIGHT RADIAL
[2025-06-03 05:14] LABS: Arterial Blood Gas Tidal Volume 350 ml; Arterial Blood Gas Ventilator rate 16 /MIN
[2025-06-03] MEDS: metroNIDAZOLE 500 MG/ISO 100ML 500 MG/100 ML BAG 100 MG IVPB ×3 (06:21→20:54)
[2025-06-03] MEDS: CENTRAL LINE FLUSH 10 ML IV PUSH ×3 (06:23→20:28)
[2025-06-03] MEDS: NOREPINEPHRINE 8 MG/D5W 250 ML 8 MG/250 ML BAG 18.75 MG IV CONT (08:41)
[2025-06-03] MEDS: MINERAL OIL/WHITE PETROLATUM OINTMENT 1 APPLIC EACH EYE ×2 (08:42→20:25)
[2025-06-03] MEDS: PANTOPRAZOLE SODIUM IV 40 MG VIAL IV PUSH ×2 (08:42→20:25)
--- NOTE | 2025-06-03 08:54 | WPDINTPN ---
Progress Note: A&P Assessment and Plan (1) Septic shock: Code(s): A41.9 - Sepsis, unspecified organism; R65.21 - Severe sepsis with septic shock Status: Acute Assessment and Plan: Patient presented with hypoxemic respiratory failure, hypotension, tachycardia, tachypnea -received adequate amount of IV fluids despite which the blood pressures remained low -off vasopressin, Levophed being weaned. Maintain MAP > 65 mmHg for adequate end organ perfusion -acute kidney injury -urine output and creatinine improving, -continue cefepime, metronidazole (05/31) -received 1 dose of vancomycin (05/31), MRSA PCR is negative, vancomycin was discontinued (05/31) -05/31: Sputum cultures obtained and pending -06/02: Blood cultures growing Gram-positive cocci I will resume vancomycin until identification except abilities are obtained Pending echocardiogram 25% albumin (2) Acute hypoxemic respiratory failure: Code(s): J96.01 - Acute respiratory failure with hypoxia Status: Acute Assessment and Plan: Patient presented with tachypnea, hypoxemia, GCS of 6, septic shock, acute hypoxemic respiratory failure, likely related to aspiration pneumonia as she was given her pills with some pudding and shortly after that patient was found hypoxic with hypotension and febrile at the nursing facility. Patient does have a PEG tube in place -05/31: Intubated in the ER -continue mechanical ventilation, CMV mode of ventilation 35% FiO2 -ABG reviewed. Continue current ventilator setting -will hold sedation and evaluate for weaning trial -06/01 bronchoscopy was done and showed right-sided extensive secretions -chest x-ray on the right side appears better.. (3) Aspiration pneumonia: Qualifiers: Aspiration pneumonia type: unspecified Laterality: bilateral Lung location: unspecified part of lung Qualified Code(s): J69.0 - Pneumonitis due to inhalation of food and vomit Code(s): J69.0 - Pneumonitis due to inhalation of food and vomit Status: Acute Assessment and Plan: See above (4) Acute renal failure: Code(s): N17.9 - Acute kidney failure, unspecified Status: Acute Assessment and Plan: Acute kidney injury, low urine output could be related to hypoxia, hypotension, ATN -creatinine on admission was 2.82, (baseline creatinine 0.6-0.9 in February of 2025) -patient has been adequately fluid-resuscitated -nephrology follow -unremarkable renal ultrasound, -continue to monitor renal function, electrolytes and urine output -avoid nephrotoxic medications (5) Electrolyte abnormality: Code(s): E87.8 - Other disorders of electrolyte and fluid balance, not elsewhere classified Status: Acute Assessment and Plan: HYPERNATREMIA: Secondary to dehydration decreased oral intake, insensible losses. Presented with a sodium level of 174 on admission -sodium levels being managed by Nephrology -improving plan to switch to free water flushes and discontinue IV fluids. Most recent sodium level 155 (6) Anemia: Code(s): D64.9 - Anemia, unspecified Status: Acute Assessment and Plan: 06/01: Patient dropped hemoglobin to 6.9 from 8.5 yesterday -06/01: Patient was transferred 1 unit of packed RBCs Normal vitamin B12, folic acid Iron panel suggested again iron deficiency 06/02 patient underwent EGD which was negative Plan DVT prophylaxis: Lovenox and SCDs Stress ulcer prophylaxis: Protonix IV q.12 hours Nutrition: Tube feeds at goal Code Status: Full Code Critical Care Time Spent: 31 minutes Due to a high probability of clinically significant, life threatening deterioration, the patient required my highest level of preparedness to intervene emergently and I personally spent this critical care time directly and personally managing the patient. This critical care time included obtaining a history; examining the patient; pulse oximetry; ordering and review of studies; arranging urgent treatment with development of a management plan; evaluation of patient's response to treatment; frequent reassessment; and discussions with other providers. It was exclusive of separately billable procedures and treating other patients and teaching time. Please see Assessment and Plan section and the rest of the note for further information on patient assessment and treatment This dictation may have been done utilizing a voice recognition system. Attempts have been made to correct errors. However, there may be uncorrected grammatical, spelling, and recognitions errors present. Subjective Date/time seen: 06/03/25 08:54 Overnight events reviewed. Febrile overnight Continues to be on mechanical ventilation 35% FiO2 and 8 of PEEP Continues to be on Levophed Continues to be sedated with fentanyl Adequate urine output. Other Vitals acceptable Tolerating tube feed Interval history: Interval history: Reason for consult: Septic shock, Pneumonia, likely aspiration, acute kidney injury, altered mental status, anemia Review of Systems Review of Systems: ROS unobtainable: Yes unobtainable due to endotracheal tube and unobtainable due to medical condition Exam Narrative: General: Intubated and sedated, in no acute distress HEENT:? Pupils are pinpoint and sluggish, sclera is clear, ETT in place Neck:? Supple Respiratory:? Coarse breath sounds on right > left, no wheezing, adequate air entry Cardiac:? S1-S2 is normal, regular rate and rhythm Abdomen:? Soft, nontender, nondistended, PEG tube in placed, hypoactive bowel sounds Extremities:? Trace edema, palpable pedal pulse Neuro:? Patient is intubated, sedated, does not open her eyes to name of follows simple commands Skin:? Excoriations and scratch issa noted on the abdominal on the umbilicus, old healing wounds on the toes Psych:? Unable to assess at this time Objective Data Vital Signs Vital Signs: Vital Signs - 24 hr 06/02/25 09:30 06/02/25 10:00 06/02/25 10:00 Temperature 36.2 C L Pulse Rate 54 L 48 L 52 L Respiratory Rate 16 Blood Pressure 103/62 94/52 L Pulse Oximetry 100 Oxygen Delivery Fraction of Inspired Oxygen 06/02/25 10:00 06/02/25 10:20 06/02/25 10:20 Temperature Pulse Rate 54 L 54 L 56 L Respiratory Rate 16 16 Blood Pressure 103/60 Pulse Oximetry Oxygen Delivery Fraction of Inspired Oxygen 06/02/25 11:17 06/02/25 11:24 06/02/25 12:00 Temperature Pulse Rate 59 L 52 L 54 L Respiratory Rate 16 Blood Pressure 103/60 Pulse Oximetry 100 Oxygen Delivery Mechanical Ventilation Fraction of Inspired Oxygen 35 06/02/25 12:00 06/02/25 12:00 06/02/25 12:00 Temperature 36.3 C L Pulse Rate 84 Respiratory Rate 16 Blood Pressure 86/57 L Pulse Oximetry 100 100 Oxygen Delivery Mechanical Ventilation Fraction of Inspired Oxygen 35 35 06/02/25 12:00 06/02/25 12:06 06/02/25 12:08 Temperature Pulse Rate 54 L 54 L 54 L Respiratory Rate 16 Blood Pressure 87/60 L Pulse Oximetry Oxygen Delivery Fraction of Inspired Oxygen 06/02/25 14:00 06/02/25 14:00 06/02/25 14:00 Temperature Pulse Rate 73 74 72 Respiratory Rate 17 Blood Pressure 88/58 L Pulse Oximetry Oxygen Delivery Fraction of Inspired Oxygen 06/02/25 14:00 06/02/25 14:02 06/02/25 14:16 Temperature 36.6 C Pulse Rate 73 74 74 Respiratory Rate 18 17 17 Blood Pressure 88/58 L Pulse Oximetry 100 Oxygen Delivery Fraction of Inspired Oxygen 06/02/25 14:21 06/02/25 14:25 06/02/25 14:50 Temperature Pulse Rate 74 83 86 Respiratory Rate 16 Blood Pressure 82/52 L Pulse Oximetry 100 Oxygen Delivery Mechanical Ventilation Fraction of Inspired Oxygen 35 06/02/25 15:03 06/02/25 15:09 06/02/25 15:13 Temperature 36.8 C 36.9 C Pulse Rate 85 92 77 Respiratory Rate 16 20 20 Blood Pressure 92/56 L 90/53 L 99/63 L Pulse Oximetry 98 97 97 Oxygen Delivery Mechanical Ventilation Mechanical Ventilation Mechanical Ventilation Fraction of Inspired Oxygen 06/02/25 15:18 06/02/25 16:00 06/02/25 16:00 Temperature 36.6 C Pulse Rate 74 75 Respiratory Rate 19 18 Blood Pressure 103/61 98/57 L Pulse Oximetry 96 98 Oxygen Delivery Mechanical Ventilation Fraction of Inspired Oxygen 35 06/02/25 16:00 06/02/25 16:00 06/02/25 16:00 Temperature Pulse Rate 73 69 Respiratory Rate 18 Blood Pressure 90/56 L Pulse Oximetry 99 Oxygen Delivery Mechanical Ventilation Fraction of Inspired Oxygen 35 06/02/25 16:00 06/02/25 16:52 06/02/25 17:25 Temperature Pulse Rate 77 85 69 Respiratory Rate 18 Blood Pressure Pulse Oximetry 99 Oxygen Delivery Mechanical Ventilation Fraction of Inspired Oxygen 35 06/02/25 18:00 06/02/25 18:00 06/02/25 18:00 Temperature 36.6 C Pulse Rate 60 60 66 Respiratory Rate 19 17 Blood Pressure 87/52 L 88/56 L Pulse Oximetry 95 Oxygen Delivery Fraction of Inspired Oxygen 06/02/25 18:00 06/02/25 20:00 06/02/25 20:00 Temperature 37.3 C Pulse Rate 66 62 62 Respiratory Rate 19 Blood Pressure 93/57 L 93/57 L Pulse Oximetry 99 Oxygen Delivery Fraction of Inspired Oxygen 06/02/25 20:00 06/02/25 20:00 06/02/25 20:00 Temperature Pulse Rate 62 65 Respiratory Rate 19 Blood Pressure Pulse Oximetry Oxygen Delivery Fraction of Inspired Oxygen 35 06/02/25 20:13 06/02/25 20:16 06/02/25 21:00 Temperature Pulse Rate 66 71 81 Respiratory Rate 19 17 Blood Pressure Pulse Oximetry 99 98 Oxygen Delivery Mechanical Ventilation Mechanical Ventilation Fraction of Inspired Oxygen 35 35 06/02/25 21:15 06/02/25 21:15 06/02/25 21:30 Temperature 37.7 C H 37.7 C H Pulse Rate 85 81 83 Respiratory Rate 17 18 Blood Pressure 87/51 L 87/51 L 102/58 L Pulse Oximetry 98 96 Oxygen Delivery Fraction of Inspired Oxygen 06/02/25 21:51 06/02/25 21:51 06/02/25 22:00 Temperature Pulse Rate 81 81 76 Respiratory Rate Blood Pressure 92/53 L 92/53 L Pulse Oximetry Oxygen Delivery Fraction of Inspired Oxygen 06/02/25 22:00 06/02/25 22:00 06/02/25 22:00 Temperature 37.7 C H Pulse Rate 78 81 78 Respiratory Rate 20 20 Blood Pressure 101/58 L 101/58 L Pulse Oximetry 95 Oxygen Delivery Fraction of Inspired Oxygen 06/02/25 23:05 06/02/25 23:56 06/02/25 23:58 Temperature Pulse Rate 72 72 Respiratory Rate 20 Blood Pressure Pulse Oximetry 95 96 Oxygen Delivery Mechanical Ventilation Mechanical Ventilation Fraction of Inspired Oxygen 35 35 35 06/03/25 00:00 06/03/25 00:00 06/03/25 00:00 Temperature 37.9 C H Pulse Rate 72 80 92 Respiratory Rate 16 16 Blood Pressure 97/57 L 97/57 L Pulse Oximetry 96 Oxygen Delivery Fraction of Inspired Oxygen 06/03/25 00:00 06/03/25 00:16 06/03/25 00:17 Temperature 38.0 C H Pulse Rate 75 80 79 Respiratory Rate 16 Blood Pressure 88/52 L 88/52 L Pulse Oximetry 96 Oxygen Delivery Fraction of Inspired Oxygen 06/03/25 01:16 06/03/25 01:19 06/03/25 02:00 Temperature Pulse Rate 78 78 77 Respiratory Rate 21 H Blood Pressure Pulse Oximetry 96 Oxygen Delivery Mechanical Ventilation Fraction of Inspired Oxygen 35 06/03/25 02:00 06/03/25 02:00 06/03/25 02:00 Temperature 38.2 C H Pulse Rate 77 78 78 Respiratory Rate 17 16 Blood Pressure 109/59 L 109/59 L Pulse Oximetry 95 Oxygen Delivery Fraction of Inspired Oxygen 06/03/25 03:50 06/03/25 03:54 06/03/25 04:00 Temperature 38.3 C H Pulse Rate 74 89 Respiratory Rate 16 16 Blood Pressure 105/62 Pulse Oximetry 96 95 Oxygen Delivery Mechanical Ventilation Fraction of Inspired Oxygen 35 35 06/03/25 04:00 06/03/25 04:00 06/03/25 04:00 Temperature Pulse Rate 78 78 78 Respiratory Rate 16 Blood Pressure 105/62 Pulse Oximetry Oxygen Delivery Fraction of Inspired Oxygen 06/03/25 04:18 06/03/25 04:19 06/03/25 04:19 Temperature 38.3 C H Pulse Rate 85 84 Respiratory Rate 16 16 Blood Pressure Pulse Oximetry Oxygen Delivery Fraction of Inspired Oxygen 06/03/25 05:17 06/03/25 05:18 06/03/25 06:00 Temperature 38.3 C H Pulse Rate 95 79 Respiratory Rate Blood Pressure 105/61 Pulse Oximetry 95 Oxygen Delivery Mechanical Ventilation Fraction of Inspired Oxygen 35 06/03/25 06:00 06/03/25 06:00 06/03/25 06:00 Temperature 38.3 C H Pulse Rate 82 82 82 Respiratory Rate 16 16 Blood Pressure 105/61 Pulse Oximetry 94 Oxygen Delivery Fraction of Inspired Oxygen 06/03/25 07:25 06/03/25 07:35 06/03/25 07:35 Temperature Pulse Rate 77 77 77 Respiratory Rate 17 Blood Pressure 111/63 Pulse Oximetry 98 Oxygen Delivery Mechanical Ventilation Fraction of Inspired Oxygen 35 06/03/25 07:51 06/03/25 08:00 06/03/25 08:00 Temperature 37.7 C H Pulse Rate 77 90 Respiratory Rate 16 17 Blood Pressure 97/56 L Pulse Oximetry 98 Oxygen Delivery Fraction of Inspired Oxygen 35 06/03/25 08:14 06/03/25 08:41 06/03/25 08:41 Temperature Pulse Rate 83 82 82 Respiratory Rate 17 Blood Pressure 110/61 110/61 Pulse Oximetry Oxygen Delivery Fraction of Inspired Oxygen Intake/Output Intake/Output: Intake & Output 05/31/25 06/01/25 06/02/25 06/03/25 23:59 23:59 23:59 23:59 Intake Total 3924.8 1677.0 3479.8 1957.6 Output Total 425 1240 2800 1250 Balance 3499.8 437.0 679.8 707.6 Meds/Results Medications: Active Medications Generic Name Dose Route Start Last Admin Trade Name Freq PRN Reason Stop Dose Admin Acetaminophen 650 mg 05/31/25 07:12 06/03/25 04:18 Acetaminophen Elixir 325 Mg/10.15 Ml Udc PO 650 mg Q6H PRN Administration Mild Pain (1-3) or Fever Acetylcysteine 200 mg 06/03/25 08:00 Acetylcysteine 20% Inhal Soln 800 Mg/4 Ml Vial INHALATION Q12HRT MARLON Albuterol/Ipratropium 3 ml 06/03/25 07:53 Ipratropium 0.5 Mg/Albuterol Sulfate 2.5 Mg Ampul.Neb 3 Ml INHALATION Q6HRT PRN wheezing Dextrose 12.5 gm 05/31/25 10:14 Dextrose 50% 25 Gm/50 Ml Syringe IV PUSH PRN PRN Hypoglycemia Protocol Glucagon 1 mg 05/31/25 10:14 Glucagon For Inj 1 Mg Vial IM PRN PRN Hypoglycemia Protocol Glucose 15 gm 05/31/25 10:14 Glucose Oral Gel 15 Gm Of Glucse In 37.5 Gm Tube PO PRN PRN Hypoglycemia Protocol Heparin Sodium (Porcine) 5,000 units 05/31/25 09:00 05/31/25 20:24 Heparin Sodium 5,000 Units/Ml Vial SUB-Q 5,000 units Q12HR MARLON Administration Norepinephrine Bitartrate 8 mg in 250 mls @ 18.75 mls/hr 05/30/25 23:25 06/03/25 08:41 Levophed 8 Mg/D5w 250 Ml IV CONT 10 mcg/min .[id number] MARLON 18.75 mls/hr Administration Protocol 10 MCG/MIN Fentanyl Citrate 2,500 mcg in 250 mls @ 0 mls/hr 05/31/25 03:21 06/03/25 07:51 Fentanyl 2,500 Mcg/Ns 250 Ml IV CONT 0 mcg/hr .Q0M MARLON 0 mls/hr Titration Protocol 0 MCG/HR Metronidazole 500 mg in 100 mls @ 100 mls/hr 05/31/25 13:00 06/03/25 07:21 Flagyl 500 Mg/Iso Soln 100 Ml IVPB Infused Q8HR MARLON Infusion Cefepime HCl 2 gm/ Sodium 50 mls @ 100 mls/hr 06/01/25 03:00 06/03/25 04:18 Chloride IVPB 100 mls/hr Q24H MARLON Administration Dextrose 1,000 mls @ 100 mls/hr 05/31/25 10:14 Dextrose 5% 1,000 Ml IVPB PRN PRN Hypoglycemia Protocol Insulin Aspart 2 - 5 units 05/31/25 12:00 06/03/25 06:17 Insulin Aspart (*Bkc) 100 Units/Ml SUB-Q Not Given Q6HR MARLON Protocol Multi-Ingred Cream/Lotion/Oil/Oint 1 applic 05/31/25 21:00 06/03/25 08:42 Mineral Oil/White Petrolatum Ointment EACH EYE 1 applic Q12HR MARLON Administration Pantoprazole Sodium 40 mg 05/31/25 09:00 06/03/25 08:42 Pantoprazole Sodium Iv 40 Mg Vial IV PUSH 40 mg Q12HR MARLON Administration Sodium Chloride 10 ml 05/31/25 06:00 06/03/25 06:23 Central Line Flush IV PUSH 10 ml Q8HR MARLON Administration Sodium Chloride 20 ml 05/30/25 23:54 Central Line Flush IV PUSH PRN PRN after blood draws Valproate Sodium 750 mg 06/01/25 21:00 06/02/25 20:51 Valproic Acid Liq 250 Mg/5 Ml Oral Solution Udc PO 750 mg HS MARLON Administration Vancomycin HCl 1 each 06/02/25 08:26 Vancomycin For Acute Kidney Injury IVPB PRN PRN Vancomycin Protocol Radiology Results: ITS Impressions Chest/Abdomen/Pelvis CT 05/31/25 05:43 Impression: Complete right middle and lower lobe consolidation with a tree-in-bud and centrilobular nodules in the right upper lobe. Findings are compatible with extensive aspiration pneumonia, with fluid opacification of bronchus intermedius. Possible mild wall thickening extensively involving large bowel, as detailed above. Correlate for infectious/inflammatory colitis versus underdistention. Head CT 05/31/25 05:43 Impression: No intracranial abnormality seen. Sinus disease, as above. Abdomen X-Ray 05/31/25 09:28 IMPRESSION: 1: NG tube tip in the stomach. Renal Ultrasound 05/31/25 13:15 IMPRESSION: No abnormality seen in the kidneys. Reed's catheter seen in the urinary bladder. Labs Labs: Laboratory Results - last 24 hr 06/01/25 06/02/25 06/02/25 08:33 12:05 15:36 WBC RBC Hgb Hct MCV MCH MCHC RDW Plt Count MPV Immature Gran % (Auto) Neut % (Auto) Lymph % (Auto) [place] % (Auto) Eos % (Auto) Baso % (Auto) Lymph # (Auto) [place] # (Auto) Eos # (Auto) Baso # (Auto) Abs Immat Gran (auto) Absolute Neuts (auto) Absolute Nucleated RBC Nucleated RBC % Puncture Site ABG pH ABG pCO2 ABG pO2 ABG PO2/FiO2 Ratio ABG HCO3 ABG O2 Saturation ABG O2 Content ABG Base Excess A-a Gradient Oxyhemoglobin Carboxyhemoglobin Methemoglobin Reduced Hemoglobin Total Hemoglobin O2 Delivery Device O2 Liters/Min Minute Volume FiO2 Peak Inspir Pressure Pressure Support Sodium 153 H Potassium 3.8 Chloride 123 H Carbon Dioxide 22 Anion Gap 8 BUN 47 H D Creatinine 1.49 H Estim Creat Clear Calc 29 Estimated GFR 36 L Glucose 183 H POC Capillary Glucose 214 H Calcium 8.2 L Phosphorus Magnesium Total Bilirubin AST ALT Alkaline Phosphatase Total Protein Albumin Free T3 pg/mL 1.1 L Random Vancomycin 06/02/25 06/02/25 06/02/25 17:09 21:01 23:07 WBC RBC Hgb Hct MCV MCH MCHC RDW Plt Count MPV Immature Gran % (Auto) Neut % (Auto) Lymph % (Auto) [place] % (Auto) Eos % (Auto) Baso % (Auto) Lymph # (Auto) [place] # (Auto) Eos # (Auto) Baso # (Auto) Abs Immat Gran (auto) Absolute Neuts (auto) Absolute Nucleated RBC Nucleated RBC % Puncture Site ABG pH ABG pCO2 ABG pO2 ABG PO2/FiO2 Ratio ABG HCO3 ABG O2 Saturation ABG O2 Content ABG Base Excess A-a Gradient Oxyhemoglobin Carboxyhemoglobin Methemoglobin Reduced Hemoglobin Total Hemoglobin O2 Delivery Device O2 Liters/Min Minute Volume FiO2 Peak Inspir Pressure Pressure Support Sodium 154 H Potassium 3.8 Chloride 123 H Carbon Dioxide 23 Anion Gap 8 BUN 43 H Creatinine 1.46 H Estim Creat Clear Calc 30 Estimated GFR 36 L Glucose 89 POC Capillary Glucose 108 H 132 H Calcium 8.4 Phosphorus Magnesium Total Bilirubin AST ALT Alkaline Phosphatase Total Protein Albumin Free T3 pg/mL Random Vancomycin 06/03/25 06/03/25 04:26 05:05 WBC 18.9 H RBC 3.03 L Hgb 8.8 L Hct 28.2 L MCV 93.1 MCH 29.0 MCHC 31.2 L RDW 17.5 H Plt Count 267 MPV 12.4 H Immature Gran % (Auto) 0.7 H Neut % (Auto) 86.3 H Lymph % (Auto) 6.5 L [place] % (Auto) 3.4 Eos % (Auto) 2.9 Baso % (Auto) 0.2 Lymph # (Auto) 1.23 [place] # (Auto) 0.6 Eos # (Auto) 0.6 H Baso # (Auto) 0.0 Abs Immat Gran (auto) 0.14 H Absolute Neuts (auto) 16.3 H Absolute Nucleated RBC 0.080 H Nucleated RBC % 0.4 H Puncture Site Right radial ABG pH 7.411 ABG pCO2 36.0 ABG pO2 81.0 ABG PO2/FiO2 Ratio 2.31 ABG HCO3 22.4 ABG O2 Saturation 96.1 ABG O2 Content 12.7 L ABG Base Excess -1.9 A-a Gradient 126.7 Oxyhemoglobin 95.3 Carboxyhemoglobin 0.3 Methemoglobin 0.2 Reduced Hemoglobin 4.2 Total Hemoglobin 9.4 L O2 Delivery Device Ventilator O2 Liters/Min Not Reportable Minute Volume Not Reportable FiO2 35 Peak Inspir Pressure Not Reportable Pressure Support Not Reportable Sodium 155 H Potassium 3.8 Chloride 123 H Carbon Dioxide 24 Anion Gap 8 BUN 38 H Creatinine 1.41 H Estim Creat Clear Calc 31 Estimated GFR 38 L Glucose 135 H POC Capillary Glucose Calcium 8.2 L Phosphorus 2.9 Magnesium 2.1 Total Bilirubin 0.3 AST 60 H ALT 32 Alkaline Phosphatase 132 H Total Protein 5.7 L Albumin 2.7 L Free T3 pg/mL Random Vancomycin 10.3 Quality VTE Prophylaxis VTE prophylaxis: pharmacologic ordered
[2025-06-03] MEDS: ENOXAPARIN 40 MG/0.4 ML SYRINGE SUB-Q (10:10)
[2025-06-03] MEDS: ALBUMIN HUMAN 25% 25 GM/100 ML 100 ML IVPB ×3 (10:10→20:25)
--- NOTE | 2025-06-03 11:24 | P.PNNP_ITS ---
Progress Note: A&P Assessment and Plan (1) Hypernatremia: Code(s): E87.0 - Hyperosmolality and hypernatremia Status: Acute Assessment and Plan: * high sodium * significant free water deficit noted (~ 5.5 - 6.0 liters...) * presumably this change in sodium occurred over several days if not longer (chronic) * goal of therapy would be a change in sodium ~ 10 - 12mmol/L in 24 hours -- being achieved * urine osmo is high consistent with free water deficit and serum Osmo is pending. * UA shows a high specific gravity and urine Osmo is high. so not DI. * sodium improved yesterday with d5w and with TFs plus TF flushes. * however the PEG leaked so not NPO and sodium is up a bit Changing the enteral free water intake. * repeat the sodium level this afternoon (2) Acute renal failure: Code(s): N17.9 - Acute kidney failure, unspecified Status: Acute Assessment and Plan: * MYLA * normal renal function ~ 3 months ago * evaluation to date noted: * renal ultrasound normal * urine electrolytes prerenal * urine eosinophils negative * CPK mildly elevated (not enough to affect kidney function) * suspect multifactorial: * hemodynamic instability/shock * infection/sepsis * diuretic and DOMINGUEZ-I use prior to admission * other(?) * s/p aggressive IVF resuscitation * creatinine level down to almost normal. * Switching fluid intake to enteral. (3) Septic shock: Code(s): A41.9 - Sepsis, unspecified organism; R65.21 - Severe sepsis with septic shock Status: Acute Assessment and Plan: * as noted on presentation with acute respiratory failure with tachypnea, hypotension, tachycardia, leukocytosis, and fever * s/p aggressive IVF resuscitation but hypotension persisted * initiated on vasopressor therapy (levophed + vasopressin) * follow culture data * on cefipime, flagyl, and vancomycin * still on pressors. * sbp now in the 100s (4) Acute hypoxic respiratory failure: Code(s): J96.01 - Acute respiratory failure with hypoxia Status: Acute Assessment and Plan: * as noted on presenation * suspect secondary to aspiration pneumonia * by report, took pills and pudding with subsequent hypoxia, tachypnea, low BP, and fever * intubated in ER and on mechanical ventilation * cxr still shows the infiltrate. * Pulmonary following * s/p bronchoscopy earlier today * Minute volume is only about 7 and FiO2 is 35. (5) Aspiration pneumonia: Qualifiers: Aspiration pneumonia type: unspecified Laterality: bilateral Lung location: unspecified part of lung Qualified Code(s): J69.0 - Pneumonitis due to inhalation of food and vomit Code(s): J69.0 - Pneumonitis due to inhalation of food and vomit Status: Acute Assessment and Plan: * suspected etiology of #4 and #3 * continue therapy as outlined (6) Anemia: Code(s): D64.9 - Anemia, unspecified Status: Acute Assessment and Plan: * presumably related to MYLA/ARF and acute illness * acute drop in H/H noted * possible coffee gorund emesis via OGT * GI recommendations noted -- EGD tomorrow * PRBC transfusion per protocol * hemoglobin about the same today as it was yesterday Subjective Date/time seen: 06/03/25 11:24 Interval history: patient is on the ventilator and sedated. Pressor dose has been reduced. Peg tube is working now. Exam Narrative: General: ill appearing female intubated and sedated and on mechanical ventilation Heart: normal S1 and S2; no rub or gallop Lungs: coarse breath sounds Abdomen: soft, nontender, nondistended, positive bowel sounds Extremities: minimal presacral edema Skin: no rash Objective Data Vital Signs Vital Signs: Vital Signs - 24 hr 06/02/25 12:00 06/02/25 12:00 06/02/25 12:00 Temperature 97.3 F L Pulse Rate 54 L 84 Respiratory Rate 16 16 Blood Pressure 86/57 L Pulse Oximetry 100 Oxygen Delivery Fraction of Inspired Oxygen 35 06/02/25 12:06/02/25 12:00 06/02/25 12:06 Temperature Pulse Rate 54 L 54 L Respiratory Rate Blood Pressure 87/60 L Pulse Oximetry 100 Oxygen Delivery Mechanical Ventilation Fraction of Inspired Oxygen 35 06/02/25 12:08 06/02/25 14:00 06/02/25 14:00 Temperature Pulse Rate 54 L 73 74 Respiratory Rate 16 17 Blood Pressure 88/58 L Pulse Oximetry Oxygen Delivery Fraction of Inspired Oxygen 06/02/25 14:00 06/02/25 14:00 06/02/25 14:02 Temperature 97.9 F Pulse Rate 72 73 74 Respiratory Rate 18 17 Blood Pressure 88/58 L Pulse Oximetry 100 Oxygen Delivery Fraction of Inspired Oxygen 06/02/25 14:16 06/02/25 14:21 06/02/25 14:25 Temperature Pulse Rate 74 74 83 Respiratory Rate 17 16 Blood Pressure Pulse Oximetry 100 Oxygen Delivery Mechanical Ventilation Fraction of Inspired Oxygen 35 06/02/25 14:50 06/02/25 15:03 06/02/25 15:09 Temperature 98.3 F Pulse Rate 86 85 92 Respiratory Rate 16 20 Blood Pressure 82/52 L 92/56 L 90/53 L Pulse Oximetry 98 97 Oxygen Delivery Mechanical Ventilation Mechanical Ventilation Fraction of Inspired Oxygen 06/02/25 15:13 06/02/25 15:18 06/02/25 16:00 Temperature 98.5 F 97.8 F Pulse Rate 77 74 75 Respiratory Rate 20 19 18 Blood Pressure 99/63 L 103/61 98/57 L Pulse Oximetry 97 96 98 Oxygen Delivery Mechanical Ventilation Mechanical Ventilation Fraction of Inspired Oxygen 06/02/25 16:00 06/02/25 16:00 06/02/25 16:00 Temperature Pulse Rate 73 Respiratory Rate Blood Pressure 90/56 L Pulse Oximetry 99 Oxygen Delivery Mechanical Ventilation Fraction of Inspired Oxygen 35 35 06/02/25 16:00 06/02/25 16:00 06/02/25 16:52 Temperature Pulse Rate 69 77 85 Respiratory Rate 18 Blood Pressure Pulse Oximetry 99 Oxygen Delivery Mechanical Ventilation Fraction of Inspired Oxygen 35 06/02/25 17:25 06/02/25 18:00 06/02/25 18:00 Temperature Pulse Rate 69 60 60 Respiratory Rate 18 19 Blood Pressure 87/52 L Pulse Oximetry Oxygen Delivery Fraction of Inspired Oxygen 06/02/25 18:00 06/02/25 18:00 06/02/25 20:00 Temperature 98 F 99.2 F Pulse Rate 66 66 62 Respiratory Rate 17 19 Blood Pressure 88/56 L 93/57 L Pulse Oximetry 95 99 Oxygen Delivery Fraction of Inspired Oxygen 06/02/25 20:00 06/02/25 20:00 06/02/25 20:00 Temperature Pulse Rate 62 62 Respiratory Rate 19 Blood Pressure 93/57 L Pulse Oximetry Oxygen Delivery Fraction of Inspired Oxygen 35 06/02/25 20:00 06/02/25 20:13 06/02/25 20:16 Temperature Pulse Rate 65 66 71 Respiratory Rate 19 Blood Pressure Pulse Oximetry 99 Oxygen Delivery Mechanical Ventilation Fraction of Inspired Oxygen 35 06/02/25 21:00 06/02/25 21:15 06/02/25 21:15 Temperature 99.8 F H Pulse Rate 81 85 81 Respiratory Rate 17 17 Blood Pressure 87/51 L 87/51 L Pulse Oximetry 98 98 Oxygen Delivery Mechanical Ventilation Fraction of Inspired Oxygen 35 06/02/25 21:30 06/02/25 21:51 06/02/25 21:51 Temperature 99.9 F H Pulse Rate 83 81 81 Respiratory Rate 18 Blood Pressure 102/58 L 92/53 L 92/53 L Pulse Oximetry 96 Oxygen Delivery Fraction of Inspired Oxygen 06/02/25 22:00 06/02/25 22:00 06/02/25 22:00 Temperature 100 F H Pulse Rate 76 78 81 Respiratory Rate 20 Blood Pressure 101/58 L 101/58 L Pulse Oximetry 95 Oxygen Delivery Fraction of Inspired Oxygen 06/02/25 22:00 06/02/25 23:05 06/02/25 23:56 Temperature Pulse Rate 78 72 Respiratory Rate 20 Blood Pressure Pulse Oximetry 95 Oxygen Delivery Mechanical Ventilation Fraction of Inspired Oxygen 35 35 06/02/25 23:58 06/03/25 00:00 06/03/25 00:00 Temperature 100.3 F H Pulse Rate 72 72 80 Respiratory Rate 20 16 Blood Pressure 97/57 L 97/57 L Pulse Oximetry 96 96 Oxygen Delivery Mechanical Ventilation Fraction of Inspired Oxygen 35 06/03/25 00:00 06/03/25 00:00 06/03/25 00:16 Temperature Pulse Rate 92 75 80 Respiratory Rate 16 Blood Pressure 88/52 L Pulse Oximetry Oxygen Delivery Fraction of Inspired Oxygen 06/03/25 00:17 06/03/25 01:16 06/03/25 01:19 Temperature 100.4 F H Pulse Rate 79 78 78 Respiratory Rate 16 21 H Blood Pressure 88/52 L Pulse Oximetry 96 96 Oxygen Delivery Mechanical Ventilation Fraction of Inspired Oxygen 35 06/03/25 02:00 06/03/25 02:00 06/03/25 02:00 Temperature 100.7 F H Pulse Rate 77 77 78 Respiratory Rate 17 Blood Pressure 109/59 L 109/59 L Pulse Oximetry 95 Oxygen Delivery Fraction of Inspired Oxygen 06/03/25 02:00 06/03/25 03:50 06/03/25 03:54 Temperature Pulse Rate 78 74 Respiratory Rate 16 16 Blood Pressure Pulse Oximetry 96 Oxygen Delivery Mechanical Ventilation Fraction of Inspired Oxygen 35 35 06/03/25 04:00 06/03/25 04:00 06/03/25 04:00 Temperature 101 F H Pulse Rate 89 78 78 Respiratory Rate 16 16 Blood Pressure 105/62 105/62 Pulse Oximetry 95 Oxygen Delivery Fraction of Inspired Oxygen 06/03/25 04:00 06/03/25 04:18 06/03/25 04:19 Temperature 101 F H Pulse Rate 78 85 Respiratory Rate 16 Blood Pressure Pulse Oximetry Oxygen Delivery Fraction of Inspired Oxygen 06/03/25 04:19 06/03/25 05:17 06/03/25 05:18 Temperature 101 F H Pulse Rate 84 95 Respiratory Rate 16 Blood Pressure Pulse Oximetry 95 Oxygen Delivery Mechanical Ventilation Fraction of Inspired Oxygen 35 06/03/25 06:00 06/03/25 06:00 06/03/25 06:00 Temperature Pulse Rate 79 82 82 Respiratory Rate 16 Blood Pressure 105/61 Pulse Oximetry Oxygen Delivery Fraction of Inspired Oxygen 06/03/25 06:00 06/03/25 07:25 06/03/25 07:35 Temperature 100.9 F H Pulse Rate 82 77 77 Respiratory Rate 16 Blood Pressure 105/61 111/63 Pulse Oximetry 94 98 Oxygen Delivery Mechanical Ventilation Fraction of Inspired Oxygen 35 06/03/25 07:35 06/03/25 07:51 06/03/25 08:00 Temperature 99.9 F H Pulse Rate 77 77 90 Respiratory Rate 17 16 17 Blood Pressure 97/56 L Pulse Oximetry 98 Oxygen Delivery Fraction of Inspired Oxygen 06/03/25 08:00 06/03/25 08:00 06/03/25 08:00 Temperature Pulse Rate 87 Respiratory Rate Blood Pressure Pulse Oximetry 98 Oxygen Delivery Mechanical Ventilation Fraction of Inspired Oxygen 35 35 06/03/25 08:14 06/03/25 08:41 06/03/25 08:41 Temperature Pulse Rate 83 82 82 Respiratory Rate 17 Blood Pressure 110/61 110/61 Pulse Oximetry Oxygen Delivery Fraction of Inspired Oxygen 06/03/25 10:00 06/03/25 10:00 06/03/25 10:00 Temperature 99.5 F Pulse Rate 81 82 85 Respiratory Rate 16 Blood Pressure 115/64 115/64 Pulse Oximetry 98 Oxygen Delivery Fraction of Inspired Oxygen 06/03/25 10:11 06/03/25 11:20 Temperature Pulse Rate 83 75 Respiratory Rate 16 Blood Pressure Pulse Oximetry 97 Oxygen Delivery Mechanical Ventilation Fraction of Inspired Oxygen 35 Intake/Output Intake/Output: Intake & Output 05/31/25 06/01/25 06/02/25 06/03/25 23:59 23:59 23:59 23:59 Intake Total 3924.8 1677.0 3479.8 1982.3 Output Total 425 1240 2800 1250 Balance 3499.8 437.0 679.8 732.3 Meds/Results Medications: Active Medications Generic Name Dose Route Start Last Admin Trade Name Freq PRN Reason Stop Dose Admin Acetaminophen 650 mg 05/31/25 07:12 06/03/25 04:18 Acetaminophen Elixir 325 Mg/10.15 Ml Udc PO 650 mg Q6H PRN Administration Mild Pain (1-3) or Fever Acetylcysteine 200 mg 06/03/25 20:00 Acetylcysteine 20% Inhal Soln 800 Mg/4 Ml Vial INHALATION Q12HRT MARLON Albuterol/Ipratropium 3 ml 06/03/25 07:53 Ipratropium 0.5 Mg/Albuterol Sulfate 2.5 Mg Ampul.Neb 3 Ml INHALATION Q6HRT PRN wheezing Dextrose 12.5 gm 05/31/25 10:14 Dextrose 50% 25 Gm/50 Ml Syringe IV PUSH PRN PRN Hypoglycemia Protocol Enoxaparin Sodium 40 mg 06/03/25 09:00 06/03/25 10:10 Enoxaparin 40 Mg/0.4 Ml Syringe SUB-Q 40 mg DAILY MARLON Administration Glucagon 1 mg 05/31/25 10:14 Glucagon For Inj 1 Mg Vial IM PRN PRN Hypoglycemia Protocol Glucose 15 gm 05/31/25 10:14 Glucose Oral Gel 15 Gm Of Glucse In 37.5 Gm Tube PO PRN PRN Hypoglycemia Protocol Norepinephrine Bitartrate 8 mg in 250 mls @ 16.875 mls/hr 05/30/25 23:25 06/03/25 10:00 Levophed 8 Mg/D5w 250 Ml IV CONT 9 mcg/min .[id number] MARLON 16.88 mls/hr Titration Protocol 9 MCG/MIN Fentanyl Citrate 2,500 mcg in 250 mls @ 0 mls/hr 05/31/25 03:21 06/03/25 10:11 Fentanyl 2,500 Mcg/Ns 250 Ml IV CONT 0 mcg/hr .Q0M MARLON 0 mls/hr Titration Protocol 0 MCG/HR Metronidazole 500 mg in 100 mls @ 100 mls/hr 05/31/25 13:00 06/03/25 07:21 Flagyl 500 Mg/Iso Soln 100 Ml IVPB Infused Q8HR MARLON Infusion Cefepime HCl 2 gm/ Sodium 50 mls @ 100 mls/hr 06/01/25 03:00 06/03/25 04:18 Chloride IVPB 100 mls/hr Q24H MARLON Administration Dextrose 1,000 mls @ 100 mls/hr 05/31/25 10:14 Dextrose 5% 1,000 Ml IVPB PRN PRN Hypoglycemia Protocol Albumin Human 100 mls @ 60 mls/hr 06/03/25 09:00 06/03/25 10:10 Albutein IVPB 06/04/25 04:39 60 mls/hr Q6H MARLON Administration Insulin Aspart 2 - 5 units 05/31/25 12:00 06/03/25 06:17 Insulin Aspart (*Bkc) 100 Units/Ml SUB-Q Not Given Q6HR MARLON Protocol Multi-Ingred Cream/Lotion/Oil/Oint 1 applic 05/31/25 21:00 06/03/25 08:42 Mineral Oil/White Petrolatum Ointment EACH EYE 1 applic Q12HR MARLON Administration Pantoprazole Sodium 40 mg 05/31/25 09:00 06/03/25 08:42 Pantoprazole Sodium Iv 40 Mg Vial IV PUSH 40 mg Q12HR MARLON Administration Sodium Chloride 10 ml 05/31/25 06:00 06/03/25 06:23 Central Line Flush IV PUSH 10 ml Q8HR MARLON Administration Sodium Chloride 20 ml 05/30/25 23:54 Central Line Flush IV PUSH PRN PRN after blood draws Valproate Sodium 750 mg 06/01/25 21:00 06/02/25 20:51 Valproic Acid Liq 250 Mg/5 Ml Oral Solution Udc PO 750 mg HS MARLON Administration Vancomycin HCl 1 each 06/02/25 08:26 Vancomycin For Acute Kidney Injury IVPB PRN PRN Vancomycin Protocol Radiology Results: ITS Impressions Chest/Abdomen/Pelvis CT 05/31/25 05:43 Impression: Complete right middle and lower lobe consolidation with a tree-in-bud and centrilobular nodules in the right upper lobe. Findings are compatible with e xtensive aspiration pneumonia, with fluid opacification of bronchus intermedius. Possible mild wall thickening extensively involving large bowel, as detailed above. Correlate for infectious/inflammatory colitis versus underdistention. Head CT 05/31/25 05:43 Impression: No intracranial abnormality seen. Sinus disease, as above. Abdomen X-Ray 05/31/25 09:28 IMPRESSION: 1: NG tube tip in the stomach. Renal Ultrasound 05/31/25 13:15 IMPRESSION: No abnormality seen in the kidneys. Reed's catheter seen in the urinary bladder. Chest X-Ray 06/03/25 10:38 Impression: 1: Asymmetric right-sided airspace disease, compatible with pneumonia. No significant change compared with prior studies. Labs Labs: Laboratory Results - last 24 hr 06/02/25 06/02/25 06/02/25 12:05 15:36 17:09 WBC RBC Hgb Hct MCV MCH MCHC RDW Plt Count MPV Immature Gran % (Auto) Neut % (Auto) Lymph % (Auto) [place] % (Auto) Eos % (Auto) Baso % (Auto) Lymph # (Auto) [place] # (Auto) Eos # (Auto) Baso # (Auto) Abs Immat Gran (auto) Absolute Neuts (auto) Absolute Nucleated RBC Nucleated RBC % Puncture Site ABG pH ABG pCO2 ABG pO2 ABG PO2/FiO2 Ratio ABG HCO3 ABG O2 Saturation ABG O2 Content ABG Base Excess A-a Gradient Oxyhemoglobin Carboxyhemoglobin Methemoglobin Reduced Hemoglobin Total Hemoglobin O2 Delivery Device O2 Liters/Min Minute Volume FiO2 Peak Inspir Pressure Pressure Support Sodium 153 H Potassium 3.8 Chloride 123 H Carbon Dioxide 22 Anion Gap 8 BUN 47 H D Creatinine 1.49 H Estim Creat Clear Calc 29 Estimated GFR 36 L Glucose 183 H POC Capillary Glucose 214 H 108 H Calcium 8.2 L Phosphorus Magnesium Total Bilirubin AST ALT Alkaline Phosphatase Total Protein Albumin Random Vancomycin 06/02/25 06/02/25 06/03/25 21:01 23:07 04:26 WBC 18.9 H RBC 3.03 L Hgb 8.8 L Hct 28.2 L MCV 93.1 MCH 29.0 MCHC 31.2 L RDW 17.5 H Plt Count 267 MPV 12.4 H Immature Gran % (Auto) 0.7 H Neut % (Auto) 86.3 H Lymph % (Auto) 6.5 L [place] % (Auto) 3.4 Eos % (Auto) 2.9 Baso % (Auto) 0.2 Lymph # (Auto) 1.23 [place] # (Auto) 0.6 Eos # (Auto) 0.6 H Baso # (Auto) 0.0 Abs Immat Gran (auto) 0.14 H Absolute Neuts (auto) 16.3 H Absolute Nucleated RBC 0.080 H Nucleated RBC % 0.4 H Puncture Site ABG pH ABG pCO2 ABG pO2 ABG PO2/FiO2 Ratio ABG HCO3 ABG O2 Saturation ABG O2 Content ABG Base Excess A-a Gradient Oxyhemoglobin Carboxyhemoglobin Methemoglobin Reduced Hemoglobin Total Hemoglobin O2 Delivery Device O2 Liters/Min Minute Volume FiO2 Peak Inspir Pressure Pressure Support Sodium 154 H 155 H Potassium 3.8 3.8 Chloride 123 H 123 H Carbon Dioxide 23 24 Anion Gap 8 8 BUN 43 H 38 H Creatinine 1.46 H 1.41 H Estim Creat Clear Calc 30 31 Estimated GFR 36 L 38 L Glucose 89 135 H POC Capillary Glucose 132 H Calcium 8.4 8.2 L Phosphorus 2.9 Magnesium 2.1 Total Bilirubin 0.3 AST 60 H ALT 32 Alkaline Phosphatase 132 H Total Protein 5.7 L Albumin 2.7 L Random Vancomycin 10.3 06/03/25 05:05 WBC RBC Hgb Hct MCV MCH MCHC RDW Plt Count MPV Immature Gran % (Auto) Neut % (Auto) Lymph % (Auto) [place] % (Auto) Eos % (Auto) Baso % (Auto) Lymph # (Auto) [place] # (Auto) Eos # (Auto) Baso # (Auto) Abs Immat Gran (auto) Absolute Neuts (auto) Absolute Nucleated RBC Nucleated RBC % Puncture Site Right radial ABG pH 7.411 ABG pCO2 36.0 ABG pO2 81.0 ABG PO2/FiO2 Ratio 2.31 ABG HCO3 22.4 ABG O2 Saturation 96.1 ABG O2 Content 12.7 L ABG Base Excess -1.9 A-a Gradient 126.7 Oxyhemoglobin 95.3 Carboxyhemoglobin 0.3 Methemoglobin 0.2 Reduced Hemoglobin 4.2 Total Hemoglobin 9.4 L O2 Delivery Device Ventilator O2 Liters/Min Not Reportable Minute Volume Not Reportable FiO2 35 Peak Inspir Pressure Not Reportable Pressure Support Not Reportable Sodium Potassium Chloride Carbon Dioxide Anion Gap BUN Creatinine Estim Creat Clear Calc Estimated GFR Glucose POC Capillary Glucose Calcium Phosphorus Magnesium Total Bilirubin AST ALT Alkaline Phosphatase Total Protein Albumin Random Vancomycin
[2025-06-03 15:19] LABS: Anion Gap 9 mmol/L (4-12); Blood Urea Nitrogen 31 mg/dL (7-17); Calcium 8.2 mg/dL (8.4-10.2); Carbon Dioxide 23 mmol/L (22-30); Chloride 122 mmol/L (98-107); Estimated CRCL calculation 36 ml/min; Estimated Glomerular Filt Rate 45; Glucose 102 mg/dL (65-110); Potassium 3.4 mmol/L (3.4-5.0); Sodium 154 mmol/L (137-145)
[2025-06-03] MEDS: DEXTROSE 5% 1,000 ML 1,000 ML 100 ML IV CONT (15:48)
[2025-06-03] MEDS: VALPROIC ACID LIQ 250 MG/5 ML ORAL SOLUTION UDC 750 MG PO (20:28)
[2025-06-04] VITALS (31 sets, daily range): BP systolic 90–123; BP diastolic 47–70; PULSE 62–116; RESP 16–30; TEMP 35.4–38.3; O2SAT 93–100
[2025-06-04] MEDS: ACETAMINOPHEN ELIXIR 325 MG/10.15 ML UDC 650 MG PO (00:21)
[2025-06-04] MEDS: ALBUMIN HUMAN 25% 25 GM/100 ML 100 ML IVPB (02:51)
[2025-06-04] MEDS: CEFEPIME 2 GM in SODIUM CHLORIDE 0.9% IV 50 ML 100 ML IVPB ×2 (02:52→14:28)
[2025-06-04] MEDS: CENTRAL LINE FLUSH 10 ML IV PUSH ×3 (04:27→20:03)
[2025-06-04] MEDS: CENTRAL LINE FLUSH 20 ML IV PUSH (04:28)
[2025-06-04 04:41] LABS: Hematocrit 21.5 % (37.0-47.0); Immature Granulocyte Percent A 0.9 % (0-0.5); Lymphocytes Absolute Auto 1.01 K/mm3 (0.9-3.2); Mean Corpuscular HGB Conc 30.7 g/dl (32-36); Mean Corpuscular Hemoglobin 28.9 pg (26-34); Mean Corpuscular Volume 94.3 fl (80-100); Nucleated Red Blood Cells Absolute Auto 0.020 K/mm3 (0.0-0.012); Nucleated Red Blood Cells Perc 0.2 % (0.0-0.2); Platelet Count Result 160 k/mm3 (150-375); Red Blood Count 2.28 M/mm3 (4.2-5.4); White Blood Count 12.7 K/mm3 (4.5-10.0)
[2025-06-04 05:00] LABS: Alanine Aminotransferase 16 U/L (6-35); Albumin Level 3.5 g/dL (3.5-5.1); Alkaline Phosphatase 81 U/L (38-126); Anion Gap 12 mmol/L (4-12); Aspartate Amino Transferase 26 U/L (14-36); Bilirubin,Total 0.6 mg/dL (0.2-1.3); Blood Urea Nitrogen 30 mg/dL (7-17); Calcium 8.4 mg/dL (8.4-10.2); Carbon Dioxide 23 mmol/L (22-30); Chloride 118 mmol/L (98-107); Estimated CRCL calculation 44 ml/min; Estimated Glomerular Filt Rate 52; Glucose 102 mg/dL (65-110); Magnesium 2.0 mg/dL (1.6-2.3); Potassium 3.2 mmol/L (3.4-5.0); Sodium 153 mmol/L (137-145); Total Protein 5.9 g/dL (6.3-8.2)
[2025-06-04 05:07] LABS: Hemoglobin 6.6 g/dL (12.0-15.0)
[2025-06-04 05:43] LABS: Alveolar/Arterial O2 Gradient 63.7 mmHg; Carboxyhemoglobin 1.3 % THb (0-2.0); Fractional Inspired Oxygen 35 %; HCO3 ABG 24.4 mEq/l (22.0-26.0); Methemoglobin ABG 0.1 %THb (0-1.5); Oxygen Content ABG 10.8 %vol (16.0-22.0); Oxygen Saturation ABG 99.1 % (95.0-100.0); PCO2 ABG 33.1 mmHg (35.0-45.0); PO2 ABG 147.4 mmHg (80.0-100.0); PO2 FiO2 Ratio Arterial Blood 4.21 %; Reduced Hemoglobin 0.5 %THb (0-5.0)
[2025-06-04] MEDS: metroNIDAZOLE 500 MG/ISO 100ML 500 MG/100 ML BAG 100 MG IVPB ×3 (05:47→21:37)
[2025-06-04 05:53] LABS: Modified Allen's Test Pass; Site Drawn RIGHT RADIAL
[2025-06-04] MEDS: SODIUM CHLORIDE 0.9% IV 250 ML 30 ML IV CONT (05:53)
[2025-06-04 05:54] LABS: Arterial Blood Gas Tidal Volume 350 ml; Arterial Blood Gas Ventilator rate 16 /MIN
[2025-06-04] MEDS: VANCOMYCIN HCL IVPB (06:37)
[2025-06-04] MEDS: DEXTROSE 5% IVPB (06:37)
[2025-06-04] MEDS: WATER IVPB (06:37)
[2025-06-04] MEDS: POTASSIUM BICARBONATE 25 MEQ TABEF 50 MEQ FEED TUBE (08:00)
[2025-06-04] MEDS: KCL 20 MEQ/SW 100 ML 100 ML 50 MEQ IVPB (08:00)
[2025-06-04] MEDS: ACETYLCYSTEINE 20% INHAL SOLN 800 MG/4 ML VIAL 200 MG INHALATION ×2 (08:28→20:55)
[2025-06-04] MEDS: IPRATROPIUM 0.5 MG/ALBUTEROL SULFATE 2.5 MG AMPUL.NEB 3 ML INHALATION ×2 (08:28→20:55)
--- NOTE | 2025-06-04 09:29 | P.PNINT_ITS ---
Progress Note: A&P Assessment and Plan (1) Septic shock: Code(s): A41.9 - Sepsis, unspecified organism; R65.21 - Severe sepsis with septic shock Status: Acute Assessment and Plan: Patient presented with hypoxemic respiratory failure, hypotension, tachycardia, tachypnea -received adequate amount of IV fluids despite which the blood pressures remained low -off vasopressin, Levophed being weaned. Maintain MAP > 65 mmHg for adequate end organ perfusion -continue cefepime, metronidazole (05/31) -received 1 dose of vancomycin (05/31), MRSA PCR is negative, vancomycin was discontinued (05/31) -05/31: Sputum cultures obtained and pending Blood cultures growing Gram-positive cocci and vancomycin was resumed. Her cultures came back suggesting Staph hominis and epidermidis likely secondary to contamination. I will discontinue vancomycin Echo Summary 1. Technically challenging exam with patient on the ventilator, definity contrast used to improve examination quality. 2. Normal appearing left and right ventricular systolic function. 3. Mildly sclerotic aortic valve with well maintained leaflet excursion. 4. No evidence of infectious vegetation is identified. (2) Acute hypoxemic respiratory failure: Code(s): J96.01 - Acute respiratory failure with hypoxia Status: Acute Assessment and Plan: Patient presented with tachypnea, hypoxemia, GCS of 6, septic shock, acute hypoxemic respiratory failure, likely related to aspiration pneumonia as she was given her pills with some pudding and shortly after that patient was found hypoxic with hypotension and febrile at the nursing facility. Patient does have a PEG tube in place -05/31: Intubated in the ER -continue mechanical ventilation, CMV mode of ventilation 35% FiO2 -ABG reviewed. Continue current ventilator setting Sedation is on hold. I will place patient on weaning trial -06/01 bronchoscopy was done and showed right-sided extensive secretions -chest x-ray on the right side appears better.. (3) Aspiration pneumonia: Qualifiers: Aspiration pneumonia type: unspecified Laterality: bilateral Lung location: unspecified part of lung Qualified Code(s): J69.0 - Pneumonitis due to inhalation of food and vomit Code(s): J69.0 - Pneumonitis due to inhalation of food and vomit Status: Acute Assessment and Plan: See above (4) Acute renal failure: Code(s): N17.9 - Acute kidney failure, unspecified Status: Acute Assessment and Plan: Acute kidney injury, low urine output could be related to hypoxia, hypotension, ATN -creatinine on admission was 2.82, (baseline creatinine 0.6-0.9 in February of 2025) -patient has been adequately fluid-resuscitated -nephrology follow -unremarkable renal ultrasound, -continue to monitor renal function, electrolytes and urine output -avoid nephrotoxic medications -creatinine and urine output is improving (5) Electrolyte abnormality: Code(s): E87.8 - Other disorders of electrolyte and fluid balance, not elsewhere cla ssified Status: Acute Assessment and Plan: HYPERNATREMIA: Secondary to dehydration decreased oral intake, insensible losses. Presented with a sodium level of 174 on admission -sodium levels being managed by Nephrology -improving. Continue free water flushes and she is off of IV fluids. Most recent sodium level 153 Replace low potassium (6) Anemia: Code(s): D64.9 - Anemia, unspecified Status: Acute Assessment and Plan: 06/01: Patient dropped hemoglobin to 6.9 from 8.5 yesterday -06/01: Patient was transferred 1 unit of packed RBCs Normal vitamin B12, folic acid Iron panel suggested again iron deficiency 06/02 patient underwent EGD which was negative 06/04 hemoglobin 6.6. I will transfuse 1 more unit of PRBC. No obvious sign of bleeding. Continue DVT prophylaxis Lovenox at this time Plan DVT prophylaxis: Lovenox and SCDs Stress ulcer prophylaxis: Protonix IV q.12 hours Nutrition: Tube feeds at goal Code Status: Full Code Critical Care Time Spent: 30 minutes Due to a high probability of clinically significant, life threatening deterioration, the patient required my highest level of preparedness to intervene emergently and I personally spent this critical care time directly and personally managing the patient. This critical care time included obtaining a history; examining the patient; pulse oximetry; ordering and review of studies; arranging urgent treatment with development of a management plan; evaluation of patient's response to treatment; frequent reassessment; and discussions with other providers. It was exclusive of separately billable procedures and treating other patients and teaching time. Please see Assessment and Plan section and the rest of the note for further information on patient assessment and treatment This dictation may have been done utilizing a voice recognition system. Attempts have been made to correct errors. However, there may be uncorrected grammatical, spelling, and recognitions errors present. Subjective Date/time seen: 06/04/25 Overnight events reviewed. Afebrile overnight Continues to be on mechanical ventilation 35% FiO2 Continues to be on very dose of Levophed Off continues today Tolerating tube feed Improved urine output Interval history: Interval history: Reason for consult: Septic shock, Pneumonia, likely aspiration, acute kidney injury, altered mental status, anemia Review of Systems Review of Systems: ROS unobtainable: Yes unobtainable due to endotracheal tube and unobtainable due to medical condition Exam Narrative: General: Intubated and sedated, in no acute distress HEENT:? Pupils are pinpoint and sluggish, sclera is clear, ETT in place Neck:? Supple Respiratory:? Coarse breath sounds on right > left, no wheezing, adequate air entry Cardiac:? S1-S2 is normal, regular rate and rhythm Abdomen:? Soft, nontender, nondistended, PEG tube in placed, hypoactive bowel sounds Extremities:? Trace edema, palpable pedal pulse Neuro:? Patient is intubated, off sedation. She her eyes are open on stimulation but she does not follow commands. She does withdraw to pain in both hands. As per [facility] report patient does not follow commands at the [facility] either Skin:? Excoriations and scratch issa noted on the abdominal on the umbilicus, old healing wounds on the toes Psych:? Unable to assess at this time Objective Data Vital Signs Vital Signs: Vital Signs - 24 hr 06/03/25 09:48 06/03/25 10:00 06/03/25 10:00 Temperature 37.5 C Pulse Rate 81 81 82 Respiratory Rate 16 Blood Pressure 115/64 Pulse Oximetry 97 Oxygen Delivery Fraction of Inspired Oxygen 06/03/25 10:00 06/03/25 10:11 06/03/25 11:20 Temperature 37.5 C Pulse Rate 85 83 75 Respiratory Rate 16 16 Blood Pressure 115/64 Pulse Oximetry 98 97 Oxygen Delivery Mechanical Ventilation Fraction of Inspired Oxygen 06/03/25 11:48 06/03/25 11:49 06/03/25 11:50 Temperature 37.3 C Pulse Rate 78 80 Respiratory Rate 16 Blood Pressure 116/63 115/60 Pulse Oximetry 98 Oxygen Delivery Fraction of Inspired Oxygen 35 06/03/25 11:52 06/03/25 12:00 06/03/25 12:00 Temperature Pulse Rate 73 76 Respiratory Rate 16 Blood Pressure Pulse Oximetry 98 Oxygen Delivery Mechanical Ventilation Fraction of Inspired Oxygen 35 06/03/25 13:30 06/03/25 13:45 06/03/25 14:00 Temperature Pulse Rate 72 76 70 Respiratory Rate Blood Pressure 116/58 L Pulse Oximetry 98 Oxygen Delivery Mechanical Ventilation Fraction of Inspired Oxygen 35 06/03/25 14:00 06/03/25 14:05 06/03/25 15:30 Temperature 37.2 C Pulse Rate 71 70 79 Respiratory Rate 16 17 Blood Pressure 120/62 120/64 Pulse Oximetry 98 Oxygen Delivery Fraction of Inspired Oxygen 06/03/25 15:49 06/03/25 15:57 06/03/25 15:57 Temperature 37.3 C Pulse Rate 74 91 Respiratory Rate 16 19 Blood Pressure 120/64 Pulse Oximetry 100 Oxygen Delivery Fraction of Inspired Oxygen 35 06/03/25 16:00 06/03/25 16:00 06/03/25 16:01 Temperature 37.3 C Pulse Rate 82 77 Respiratory Rate 16 Blood Pressure Pulse Oximetry 100 100 Oxygen Delivery Mechanical Ventilation Fraction of Inspired Oxygen 35 06/03/25 16:03 06/03/25 16:34 06/03/25 17:05 Temperature Pulse Rate 80 76 78 Respiratory Rate 17 Blood Pressure 115/68 Pulse Oximetry 100 Oxygen Delivery Mechanical Ventilation Fraction of Inspired Oxygen 35 06/03/25 18:00 06/03/25 18:00 06/03/25 18:51 Temperature 37.4 C Pulse Rate 74 73 81 Respiratory Rate 18 Blood Pressure 108/59 L 115/59 L Pulse Oximetry 100 Oxygen Delivery Fraction of Inspired Oxygen 06/03/25 19:15 06/03/25 19:15 06/03/25 19:45 Temperature 37.7 C H Pulse Rate 77 77 90 Respiratory Rate 16 20 Blood Pressure 115/57 L Pulse Oximetry 100 99 Oxygen Delivery Mechanical Ventilation Fraction of Inspired Oxygen 35 06/03/25 20:00 06/03/25 20:00 06/03/25 20:00 Temperature Pulse Rate 93 85 Respiratory Rate Blood Pressure 103/57 L Pulse Oximetry Oxygen Delivery Fraction of Inspired Oxygen 35 06/03/25 20:00 06/03/25 20:10 06/03/25 20:29 Temperature 37.8 C H Pulse Rate 93 82 119 H Respiratory Rate 22 H 16 Blood Pressure 112/62 Pulse Oximetry 99 99 Oxygen Delivery Mechanical Ventilation Fraction of Inspired Oxygen 35 06/03/25 21:57 06/03/25 22:00 06/03/25 22:00 Temperature 38.1 C H Pulse Rate 95 103 H 103 H Respiratory Rate 18 Blood Pressure 111/58 L 113/60 Pulse Oximetry 100 Oxygen Delivery Fraction of Inspired Oxygen 06/03/25 22:33 06/03/25 23:05 06/03/25 23:57 Temperature 38.1 C H 38.3 C H Pulse Rate 92 75 88 Respiratory Rate 20 16 Blood Pressure 108/57 L Pulse Oximetry 100 100 100 Oxygen Delivery Mechanical Ventilation Fraction of Inspired Oxygen 35 06/04/25 00:00 06/04/25 00:00 06/04/25 00:00 Temperature Pulse Rate 88 88 113 H Respiratory Rate 17 Blood Pressure 108/56 L Pulse Oximetry 100 Oxygen Delivery Mechanical Ventilation Fraction of Inspired Oxygen 35 06/04/25 00:00 06/04/25 00:01 06/04/25 00:21 Temperature 38.3 C H 38.3 C H Pulse Rate 83 Respiratory Rate 16 Blood Pressure Pulse Oximetry 100 Oxygen Delivery Fraction of Inspired Oxygen 35 06/04/25 00:25 06/04/25 01:21 06/04/25 02:00 Temperature 38.0 C H 37.1 C Pulse Rate 95 89 Respiratory Rate 20 Blood Pressure 112/62 94/54 L Pulse Oximetry 94 Oxygen Delivery Fraction of Inspired Oxygen 06/04/25 02:00 06/04/25 02:00 06/04/25 02:27 Temperature Pulse Rate 75 89 75 Respiratory Rate Blood Pressure 94/54 L Pulse Oximetry 97 Oxygen Delivery Mechanical Ventilation Fraction of Inspired Oxygen 35 06/04/25 02:34 06/04/25 02:55 06/04/25 03:00 Temperature 37.4 C 37.1 C 35.4 C L Pulse Rate 78 Respiratory Rate 18 Blood Pressure Pulse Oximetry 94 95 97 Oxygen Delivery Fraction of Inspired Oxygen 06/04/25 04:00 06/04/25 04:00 06/04/25 04:00 Temperature 37.1 C Pulse Rate 63 62 62 Respiratory Rate 20 18 Blood Pressure 100/57 L 100/57 L Pulse Oximetry 100 100 Oxygen Delivery Mechanical Ventilation Fraction of Inspired Oxygen 35 06/04/25 04:00 06/04/25 04:00 06/04/25 05:22 Temperature Pulse Rate 63 71 Respiratory Rate Blood Pressure Pulse Oximetry 99 Oxygen Delivery Mechanical Ventilation Fraction of Inspired Oxygen 35 35 06/04/25 05:56 06/04/25 06:00 06/04/25 06:00 Temperature 36.7 C 36.7 C Pulse Rate 84 81 80 Respiratory Rate 22 H 22 H Blood Pressure 94/50 L 90/55 L Pulse Oximetry 98 98 Oxygen Delivery Fraction of Inspired Oxygen 06/04/25 06:00 06/04/25 06:12 06/04/25 06:12 Temperature 36.7 C 36.7 C Pulse Rate 83 81 81 Respiratory Rate 22 H 22 H Blood Pressure 90/55 L 90/47 L 90/47 L Pulse Oximetry 99 99 Oxygen Delivery Fraction of Inspired Oxygen 06/04/25 06:54 06/04/25 07:12 06/04/25 08:00 Temperature 36.6 C 36.4 C Pulse Rate 73 70 94 Respiratory Rate 18 22 H Blood Pressure 108/61 105/62 109/64 Pulse Oximetry 100 100 Oxygen Delivery Fraction of Inspired Oxygen 06/04/25 08:00 06/04/25 08:00 06/04/25 08:12 Temperature 36.4 C Pulse Rate 96 96 Respiratory Rate 24 H Blood Pressure 109/64 118/68 Pulse Oximetry 100 Oxygen Delivery Fraction of Inspired Oxygen 35 06/04/25 08:30 06/04/25 08:31 06/04/25 08:43 Temperature Pulse Rate 96 93 94 Respiratory Rate 16 23 H Blood Pressure Pulse Oximetry 100 Oxygen Delivery Mechanical Ventilation Fraction of Inspired Oxygen 35 Intake/Output Intake/Output: Intake & Output 06/01/25 06/02/25 06/03/25 06/04/25 23:59 23:59 23:59 23:59 Intake Total 1677.0 3479.8 3406.6 1797.0 Output Total 1240 2800 2250 1425 Balance 437.0 679.8 1156.6 372.0 Meds/Results Medications: Active Medications Generic Name Dose Route Start Last Admin Trade Name Freq PRN Reason Stop Dose Admin Acetaminophen 650 mg 05/31/25 07:12 06/04/25 00:21 Acetaminophen Elixir 325 Mg/10.15 Ml Udc PO 650 mg Q6H PRN Administration Mild Pain (1-3) or Fever Acetylcysteine 200 mg 06/03/25 20:00 06/04/25 08:28 Acetylcysteine 20% Inhal Soln 800 Mg/4 Ml Vial INHALATION 200 mg Q12HRT MARLON Administration Albuterol/Ipratropium 3 ml 06/03/25 07:53 06/04/25 08:28 Ipratropium 0.5 Mg/Albuterol Sulfate 2.5 Mg Ampul.Neb 3 Ml INHALATION 3 ml Q6HRT PRN Administration wheezing Dextrose 12.5 gm 05/31/25 10:14 Dextrose 50% 25 Gm/50 Ml Syringe IV PUSH PRN PRN Hypoglycemia Protocol Enoxaparin Sodium 40 mg 06/03/25 09:00 06/03/25 10:10 Enoxaparin 40 Mg/0.4 Ml Syringe SUB-Q 40 mg DAILY MARLON Administration Glucagon 1 mg 05/31/25 10:14 Glucagon For Inj 1 Mg Vial IM PRN PRN Hypoglycemia Protocol Glucose 15 gm 05/31/25 10:14 Glucose Oral Gel 15 Gm Of Glucse In 37.5 Gm Tube PO PRN PRN Hypoglycemia Protocol Norepinephrine Bitartrate 8 mg in 250 mls @ 0 mls/hr 05/30/25 23:25 06/04/25 08:00 Levophed 8 Mg/D5w 250 Ml IV CONT 0 mcg/min .Q0M MARLON 0 mls/hr Titration Protocol 0 MCG/MIN Metronidazole 500 mg in 100 mls @ 100 mls/hr 05/31/25 13:00 06/04/25 06:55 Flagyl 500 Mg/Iso Soln 100 Ml IVPB Infused Q8HR MARLON Infusion Dextrose 1,000 mls @ 100 mls/hr 05/31/25 10:14 Dextrose 5% 1,000 Ml IVPB PRN PRN Hypoglycemia Protocol Sodium Chloride 250 mls @ 30 mls/hr 06/04/25 05:27 06/04/25 05:53 Normal Saline Iv IV CONT 06/04/25 13:46 30 mls/hr .Q8H20M STA Administration Cefepime HCl 2 gm/ Sodium 50 mls @ 100 mls/hr 06/04/25 15:00 Chloride IVPB Q12H MARLON Potassium Chloride 100 mls @ 50 mls/hr 06/04/25 07:33 Kcl 20 Meq/Sw 100 Ml IVPB 06/04/25 09:32 ONCE ONE Insulin Aspart 2 - 5 units 05/31/25 12:00 06/04/25 05:24 Insulin Aspart (*Bkc) 100 Units/Ml SUB-Q Not Given Q6HR MALRON Protocol Multi-Ingred Cream/Lotion/Oil/Oint 1 applic 05/31/25 21:00 06/03/25 20:25 Mineral Oil/White Petrolatum Ointment EACH EYE 1 applic Q12HR MARLON Administration Pantoprazole Sodium 40 mg 05/31/25 09:00 06/03/25 20:25 Pantoprazole Sodium Iv 40 Mg Vial IV PUSH 40 mg Q12HR MARLON Administration Sodium Chloride 10 ml 05/31/25 06:00 06/04/25 04:27 Central Line Flush IV PUSH 10 ml Q8HR MARLON Administration Sodium Chloride 20 ml 05/30/25 23:54 06/04/25 04:28 Central Line Flush IV PUSH 20 ml PRN PRN Administration after blood draws Valproate Sodium 750 mg 06/01/25 21:00 06/03/25 20:28 Valproic Acid Liq 250 Mg/5 Ml Oral Solution Udc PO 750 mg HS MARLON Administration Radiology Results: ITS Impressions Chest/Abdomen/Pelvis CT 05/31/25 05:43 Impression: Complete right middle and lower lobe consolidation with a tree-in-bud and centrilobular nodules in the right upper lobe. Findings are compatible with extensive aspiration pneumonia, with fluid opacification of bronchus intermed ius. Possible mild wall thickening extensively involving large bowel, as detailed above. Correlate for infectious/inflammatory colitis versus underdistention. Head CT 05/31/25 05:43 Impression: No intracranial abnormality seen. Sinus disease, as above. Abdomen X-Ray 05/31/25 09:28 IMPRESSION: 1: NG tube tip in the stomach. Renal Ultrasound 05/31/25 13:15 IMPRESSION: No abnormality seen in the kidneys. Reed's catheter seen in the urinary bladder. Chest X-Ray 06/04/25 07:12 Impression: Stable right basilar consolidation. Stable support tubes. Labs Labs: Laboratory Results - last 24 hr 06/01/25 06/03/25 06/03/25 05:36 11:46 14:56 WBC RBC Hgb Hct MCV MCH MCHC RDW Plt Count MPV Immature Gran % (Auto) Neut % (Auto) Lymph % (Auto) [place] % (Auto) Eos % (Auto) Baso % (Auto) Lymph # (Auto) [place] # (Auto) Eos # (Auto) Baso # (Auto) Abs Immat Gran (auto) Absolute Neuts (auto) Absolute Nucleated RBC Nucleated RBC % Puncture Site ABG pH ABG pCO2 ABG pO2 ABG PO2/FiO2 Ratio ABG HCO3 ABG O2 Saturation ABG O2 Content ABG Base Excess A-a Gradient Oxyhemoglobin Carboxyhemoglobin Methemoglobin Reduced Hemoglobin Total Hemoglobin O2 Delivery Device O2 Liters/Min Minute Volume Vent Rate Vent Mode FiO2 Tidal Volume PEEP Peak Inspir Pressure Pressure Support Sodium 154 H Potassium 3.4 Chloride 122 H Carbon Dioxide 23 Anion Gap 9 BUN 31 H Creatinine 1.21 H Estim Creat Clear Calc 36 Estimated GFR 45 L Glucose 102 POC Capillary Glucose 104 Calcium 8.2 L Phosphorus Magnesium Total Bilirubin AST ALT Alkaline Phosphatase Total Protein Albumin Random Vancomycin Blood Type O Positive Antibody Screen Negative Crossmatch See Detail 06/03/25 06/03/25 06/04/25 17:05 23:46 04:27 WBC 12.7 H RBC 2.28 L Hgb 6.6 L* Hct 21.5 L MCV 94.3 MCH 28.9 MCHC 30.7 L RDW 17.0 H Plt Count 160 MPV 12.7 H Immature Gran % (Auto) 0.9 H Neut % (Auto) 83.6 H Lymph % (Auto) 8.0 L [place] % (Auto) 5.6 Eos % (Auto) 1.7 Baso % (Auto) 0.2 Lymph # (Auto) 1.01 [place] # (Auto) 0.7 H Eos # (Auto) 0.2 Baso # (Auto) 0.0 Abs Immat Gran (auto) 0.11 H Absolute Neuts (auto) 10.6 H Absolute Nucleated RBC 0.020 H Nucleated RBC % 0.2 Puncture Site ABG pH ABG pCO2 ABG pO2 ABG PO2/FiO2 Ratio ABG HCO3 ABG O2 Saturation ABG O2 Content ABG Base Excess A-a Gradient Oxyhemoglobin Carboxyhemoglobin Methemoglobin Reduced Hemoglobin Total Hemoglobin O2 Delivery Device O2 Liters/Min Minute Volume Vent Rate Vent Mode FiO2 Tidal Volume PEEP Peak Inspir Pressure Pressure Support Sodium 153 H Potassium 3.2 L Chloride 118 H Carbon Dioxide 23 Anion Gap 12 BUN 30 H Creatinine 1.07 H Estim Creat Clear Calc 44 Estimated GFR 52 L Glucose 102 POC Capillary Glucose 110 H 102 Calcium 8.4 Phosphorus 2.5 Magnesium 2.0 Total Bilirubin 0.6 AST 26 ALT 16 Alkaline Phosphatase 81 Total Protein 5.9 L Albumin 3.5 Random Vancomycin 10.9 Blood Type Antibody Screen Crossmatch 06/04/25 05:22 WBC RBC Hgb Hct MCV MCH MCHC RDW Plt Count MPV Immature Gran % (Auto) Neut % (Auto) Lymph % (Auto) [place] % (Auto) Eos % (Auto) Baso % (Auto) Lymph # (Auto) [place] # (Auto) Eos # (Auto) Baso # (Auto) Abs Immat Gran (auto) Absolute Neuts (auto) Absolute Nucleated RBC Nucleated RBC % Puncture Site Right radial ABG pH 7.485 H ABG pCO2 33.1 L ABG pO2 147.4 H ABG PO2/FiO2 Ratio 4.21 ABG HCO3 24.4 ABG O2 Saturation 99.1 ABG O2 Content 10.8 L ABG Base Excess 1.0 A-a Gradient 63.7 Oxyhemoglobin 98.1 Carboxyhemoglobin 1.3 Methemoglobin 0.1 Reduced Hemoglobin 0.5 Total Hemoglobin 7.6 L* O2 Delivery Device Ventilator O2 Liters/Min Not Reportable Minute Volume Not Reportable Vent Rate 16 Vent Mode Cmv FiO2 35 Tidal Volume 350 PEEP 8 Peak Inspir Pressure Not Reportable Pressure Support Not Reportable Sodium Potassium Chloride Carbon Dioxide Anion Gap BUN Creatinine Estim Creat Clear Calc Estimated GFR Glucose POC Capillary Glucose Calcium Phosphorus Magnesium Total Bilirubin AST ALT Alkaline Phosphatase Total Protein Albumin Random Vancomycin Blood Type Antibody Screen Crossmatch Quality VTE Prophylaxis VTE prophylaxis: pharmacologic ordered
[2025-06-04] MEDS: MINERAL OIL/WHITE PETROLATUM OINTMENT 1 APPLIC EACH EYE ×2 (09:32→20:03)
[2025-06-04] MEDS: PANTOPRAZOLE SODIUM IV 40 MG VIAL IV PUSH ×2 (09:32→20:03)
[2025-06-04] MEDS: ENOXAPARIN 40 MG/0.4 ML SYRINGE SUB-Q (09:32)
[2025-06-04 10:01] LABS: Alveolar/Arterial O2 Gradient 127.5 mmHg; Fractional Inspired Oxygen 35 %; HCO3 ABG 22.4 mEq/l (22.0-26.0); Oxygen Content ABG 12.8 %vol (16.0-22.0); Oxygen Saturation ABG 96.5 % (95.0-100.0); PCO2 ABG 34.1 mmHg (35.0-45.0); PO2 ABG 82.4 mmHg (80.0-100.0); PO2 FiO2 Ratio Arterial Blood 2.35 %
[2025-06-04 10:02] LABS: Liters per Minute 0.0 LPM; Modified Allen's Test Pass; Site Drawn LEFT RADIAL
[2025-06-04 10:03] LABS: Arterial Blood Gas Pressure Support 5 cmH2O
--- NOTE | 2025-06-04 10:47 | PM.EVENT ---
Event Note Event Note Event Note: 03/23 PSV trial done for close to an hour. RSBI, ABGI and Vitals acceptable. Pt awake but does not follow commands. Which appears to be close to patient's baseline. Will extubated monitor patient. Patient will need frequent suctioning for respiratory and oral secretion. Patient appears overall weak. Will monitor closely.
--- NOTE | 2025-06-04 15:46 | P.PNNP_ITS ---
Progress Note: A&P Assessment and Plan (1) Hypernatremia: Code(s): E87.0 - Hyperosmolality and hypernatremia Status: Acute Assessment and Plan: * high sodium * significant free water deficit noted (~ 5.5 - 6.0 liters...) * presumably this change in sodium occurred over several days if not longer (chronic) * goal of therapy would be a change in sodium ~ 10 - 12mmol/L in 24 hours -- being achieved * urine osmo is high consistent with free water deficit and serum Osmo is pending. * UA shows a high specific gravity and urine Osmo is high. so not DI. * sodium a little down today. * will continue free water and TFs. * repeat sodium this afternoon and if needed will give more free water. (2) Acute renal failure: Code(s): N17.9 - Acute kidney failure, unspecified Status: Acute Assessment and Plan: * MYLA * normal renal function ~ 3 months ago * evaluation to date noted: * renal ultrasound normal * urine electrolytes prerenal * urine eosinophils negative * CPK mildly elevated (not enough to affect kidney function) * suspect multifactorial: * hemodynamic instability/shock * infection/sepsis * diuretic and DOMINGUEZ-I use prior to admission * other(?) * creatinine level 1.07 today (3) Septic shock: Code(s): A41.9 - Sepsis, unspecified organism; R65.21 - Severe sepsis with septic shock Status: Acute Assessment and Plan: * as noted on presentation with acute respiratory failure with tachypnea, hypotension, tachycardia, leukocytosis, and fever * s/p aggressive IVF resuscitation but hypotension persisted * initiated on vasopressor therapy (levophed + vasopressin) * follow culture data * on cefipime, flagyl, and vancomycin * still on pressors but dose is very low. 1mcg when I saw her this morning * sbp now in the 100s (4) Acute hypoxic respiratory failure: Code(s): J96.01 - Acute respiratory failure with hypoxia Status: Acute Assessment and Plan: * as noted on presenation * suspect secondary to aspiration pneumonia * by report, took pills and pudding with subsequent hypoxia, tachypnea, low BP, and fever * intubated in ER and on mechanical ventilation * cxr still shows the infiltrate. * Pulmonary following * s/p bronchoscopy earlier today * Minute volume is only about 7 and FiO2 is 35. * getting an SBT. (5) Aspiration pneumonia: Qualifiers: Aspiration pneumonia type: unspecified Laterality: bilateral Lung location: unspecified part of lung Qualified Code(s): J69.0 - Pneumonitis due to inhalation of food and vomit Code(s): J69.0 - Pneumonitis due to inhalation of food and vomit Status: Acute Assessment and Plan: * suspected etiology of #4 and #3 * continue therapy as outlined (6) Anemia: Code(s): D64.9 - Anemia, unspecified Status: Acute Assessment and Plan: * presumably related to MYLA/ARF and acute illness * acute drop in H/H noted * possible coffee gorund emesis via OGT * GI recommendations noted -- EGD tomorrow * PRBC transfusion per serologist. * hemoglobin lower. Subjective Date/time seen: 06/04/25 15:46 Interval history: pt is on the vent. sedated. looks comfortable. Exam Narrative: General: ill appearing female intubated and sedated and on mechanical ventilation Heart: normal S1 and S2; no rub Lungs: upper airway noise. Abdomen: BS+ nontender Extremities: minimal presacral edema Skin: no rash Objective Data Vital Signs Vital Signs: Vital Signs - 24 hr 06/03/25 15:49 06/03/25 15:57 06/03/25 15:57 Temperature 99.1 F Pulse Rate 74 91 Respiratory Rate 16 19 Blood Pressure 120/64 Pulse Oximetry 100 Oxygen Delivery Oxygen Flow Rate Fraction of Inspired Oxygen 35 06/03/25 16:00 06/03/25 16:00 06/03/25 16:01 Temperature 99.1 F Pulse Rate 82 77 Respiratory Rate 16 Blood Pressure Pulse Oximetry 100 100 Oxygen Delivery Mechanical Ventilation Oxygen Flow Rate Fraction of Inspired Oxygen 35 06/03/25 16:03 06/03/25 16:34 06/03/25 17:05 Temperature Pulse Rate 80 76 78 Respiratory Rate 17 Blood Pressure 115/68 Pulse Oximetry 100 Oxygen Delivery Mechanical Ventilation Oxygen Flow Rate Fraction of Inspired Oxygen 35 06/03/25 18:00 06/03/25 18:00 06/03/25 18:51 Temperature 99.4 F Pulse Rate 74 73 81 Respiratory Rate 18 Blood Pressure 108/59 L 115/59 L Pulse Oximetry 100 Oxygen Delivery Oxygen Flow Rate Fraction of Inspired Oxygen 06/03/25 19:15 06/03/25 19:15 06/03/25 19:45 Temperature 99.8 F H Pulse Rate 77 77 90 Respiratory Rate 16 20 Blood Pressure 115/57 L Pulse Oximetry 100 99 Oxygen Delivery Mechanical Ventilation Oxygen Flow Rate Fraction of Inspired Oxygen 35 06/03/25 20:00 06/03/25 20:00 06/03/25 20:00 Temperature Pulse Rate 93 85 Respiratory Rate Blood Pressure 103/57 L Pulse Oximetry Oxygen Delivery Oxygen Flow Rate Fraction of Inspired Oxygen 35 06/03/25 20:00 06/03/25 20:10 06/03/25 20:29 Temperature 100.0 F H Pulse Rate 93 82 119 H Respiratory Rate 22 H 16 Blood Pressure 112/62 Pulse Oximetry 99 99 Oxygen Delivery Mechanical Ventilation Oxygen Flow Rate Fraction of Inspired Oxygen 35 06/03/25 21:57 06/03/25 22:00 06/03/25 22:00 Temperature 100.5 F H Pulse Rate 95 103 H 103 H Respiratory Rate 18 Blood Pressure 111/58 L 113/60 Pulse Oximetry 100 Oxygen Delivery Oxygen Flow Rate Fraction of Inspired Oxygen 06/03/25 22:33 06/03/25 23:05 06/03/25 23:57 Temperature 100.6 F H 100.9 F H Pulse Rate 92 75 88 Respiratory Rate 20 16 Blood Pressure 108/57 L Pulse Oximetry 100 100 100 Oxygen Delivery Mechanical Ventilation Oxygen Flow Rate Fraction of Inspired Oxygen 35 06/04/25 00:00 06/04/25 00:00 06/04/25 00:00 Temperature Pulse Rate 88 88 113 H Respiratory Rate 17 Blood Pressure 108/56 L Pulse Oximetry 100 Oxygen Delivery Mechanical Ventilation Oxygen Flow Rate Fraction of Inspired Oxygen 35 06/04/25 00:00 06/04/25 00:01 06/04/25 00:21 Temperature 100.9 F H 100.9 F H Pulse Rate 83 Respiratory Rate 16 Blood Pressure Pulse Oximetry 100 Oxygen Delivery Oxygen Flow Rate Fraction of Inspired Oxygen 35 06/04/25 00:25 06/04/25 01:21 06/04/25 02:00 Temperature 100.4 F H 98.7 F Pulse Rate 95 89 Respiratory Rate 20 Blood Pressure 112/62 94/54 L Pulse Oximetry 94 Oxygen Delivery Oxygen Flow Rate Fraction of Inspired Oxygen 06/04/25 02:00 06/04/25 02:00 06/04/25 02:27 Temperature Pulse Rate 75 89 75 Respiratory Rate Blood Pressure 94/54 L Pulse Oximetry 97 Oxygen Delivery Mechanical Ventilation Oxygen Flow Rate Fraction of Inspired Oxygen 35 06/04/25 02:34 06/04/25 02:55 06/04/25 03:00 Temperature 99.4 F 98.7 F 95.7 F L Pulse Rate 78 Respiratory Rate 18 Blood Pressure Pulse Oximetry 94 95 97 Oxygen Delivery Oxygen Flow Rate Fraction of Inspired Oxygen 06/04/25 04:00 06/04/25 04:00 06/04/25 04:00 Temperature 98.8 F Pulse Rate 63 62 62 Respiratory Rate 20 18 Blood Pressure 100/57 L 100/57 L Pulse Oximetry 100 100 Oxygen Delivery Mechanical Ventilation Oxygen Flow Rate Fraction of Inspired Oxygen 35 06/04/25 04:00 06/04/25 04:00 06/04/25 05:22 Temperature Pulse Rate 63 71 Respiratory Rate Blood Pressure Pulse Oximetry 99 Oxygen Delivery Mechanical Ventilation Oxygen Flow Rate Fraction of Inspired Oxygen 35 35 06/04/25 05:56 06/04/25 06:00 06/04/25 06:00 Temperature 98.0 F 98.0 F Pulse Rate 84 81 80 Respiratory Rate 22 H 22 H Blood Pressure 94/50 L 90/55 L Pulse Oximetry 98 98 Oxygen Delivery Oxygen Flow Rate Fraction of Inspired Oxygen 06/04/25 06:00 06/04/25 06:12 06/04/25 06:12 Temperature 98.0 F 98.0 F Pulse Rate 83 81 81 Respiratory Rate 22 H 22 H Blood Pressure 90/55 L 90/47 L 90/47 L Pulse Oximetry 99 99 Oxygen Delivery Oxygen Flow Rate Fraction of Inspired Oxygen 06/04/25 06:54 06/04/25 07:12 06/04/25 08:00 Temperature 97.8 F 97.6 F Pulse Rate 73 70 94 Respiratory Rate 18 22 H Blood Pressure 108/61 105/62 109/64 Pulse Oximetry 100 100 Oxygen Delivery Oxygen Flow Rate Fraction of Inspired Oxygen 06/04/25 08:00 06/04/25 08:00 06/04/25 08:00 Temperature Pulse Rate 96 Respiratory Rate Blood Pressure 109/64 Pulse Oximetry 100 Oxygen Delivery Mechanical Ventilation Oxygen Flow Rate Fraction of Inspired Oxygen 35 35 06/04/25 08:00 06/04/25 08:12 06/04/25 08:30 Temperature 97.6 F Pulse Rate 95 96 96 Respiratory Rate 24 H 16 Blood Pressure 118/68 Pulse Oximetry 100 Oxygen Delivery Oxygen Flow Rate Fraction of Inspired Oxygen 06/04/25 08:31 06/04/25 08:31 06/04/25 08:43 Temperature Pulse Rate 93 94 Respiratory Rate 23 H Blood Pressure Pulse Oximetry 100 Oxygen Delivery Mechanical Ventilation Oxygen Flow Rate Fraction of Inspired Oxygen 35 35 06/04/25 10:00 06/04/25 10:00 06/04/25 10:00 Temperature 97.6 F Pulse Rate 95 95 96 Respiratory Rate 21 H Blood Pressure 112/70 112/70 Pulse Oximetry 100 Oxygen Delivery Oxygen Flow Rate Fraction of Inspired Oxygen 06/04/25 10:13 06/04/25 12:00 06/04/25 12:00 Temperature 98.2 F Pulse Rate 104 H 103 H Respiratory Rate 27 H Blood Pressure 95/56 L 95/56 L Pulse Oximetry 99 99 Oxygen Delivery Nasal Cannula Oxygen Flow Rate 2 Fraction of Inspired Oxygen 06/04/25 12:00 06/04/25 12:00 06/04/25 14:00 Temperature 98.6 F Pulse Rate 101 H 107 H Respiratory Rate 24 H Blood Pressure 111/66 Pulse Oximetry 98 96 Oxygen Delivery Nasal Cannula Oxygen Flow Rate 2 Fraction of Inspired Oxygen 06/04/25 14:00 06/04/25 14:00 Temperature Pulse Rate 109 H 98 Respiratory Rate Blood Pressure 111/66 Pulse Oximetry Oxygen Delivery Oxygen Flow Rate Fraction of Inspired Oxygen Intake/Output Intake/Output: Intake & Output 06/01/25 06/02/25 06/03/25 06/04/25 23:59 23:59 23:59 23:59 Intake Total 1677.0 3479.8 3406.6 1797.0 Output Total 1240 2800 2250 1425 Balance 437.0 679.8 1156.6 372.0 Meds/Results Medications: Active Medications Generic Name Dose Route Start Last Admin Trade Name Freq PRN Reason Stop Dose Admin Acetaminophen 650 mg 05/31/25 07:12 06/04/25 00:21 Acetaminophen Elixir 325 Mg/10.15 Ml Udc PO 650 mg Q6H PRN Administration Mild Pain (1-3) or Fever Acetylcysteine 200 mg 06/03/25 20:00 06/04/25 08:28 Acetylcysteine 20% Inhal Soln 800 Mg/4 Ml Vial INHALATION 200 mg Q12HRT MARLON Administration Albuterol/Ipratropium 3 ml 06/03/25 07:53 06/04/25 08:28 Ipratropium 0.5 Mg/Albuterol Sulfate 2.5 Mg Ampul.Neb 3 Ml INHALATION 3 ml Q6HRT PRN Administration wheezing Dextrose 12.5 gm 05/31/25 10:14 Dextrose 50% 25 Gm/50 Ml Syringe IV PUSH PRN PRN Hypoglycemia Protocol Enoxaparin Sodium 40 mg 06/03/25 09:00 06/04/25 09:32 Enoxaparin 40 Mg/0.4 Ml Syringe SUB-Q 40 mg DAILY MARLON Administration Glucagon 1 mg 05/31/25 10:14 Glucagon For Inj 1 Mg Vial IM PRN PRN Hypoglycemia Protocol Glucose 15 gm 05/31/25 10:14 Glucose Oral Gel 15 Gm Of Glucse In 37.5 Gm Tube PO PRN PRN Hypoglycemia Protocol Norepinephrine Bitartrate 8 mg in 250 mls @ 0 mls/hr 05/30/25 23:25 06/04/25 14:00 Levophed 8 Mg/D5w 250 Ml IV CONT 0 mcg/min .Q0M MARLON 0 mls/hr Titration Protocol 0 MCG/MIN Metronidazole 500 mg in 100 mls @ 100 mls/hr 05/31/25 13:00 06/04/25 13:29 Flagyl 500 Mg/Iso Soln 100 Ml IVPB 100 mls/hr Q8HR MARLON Administration Dextrose 1,000 mls @ 100 mls/hr 05/31/25 10:14 Dextrose 5% 1,000 Ml IVPB PRN PRN Hypoglycemia Protocol Cefepime HCl 2 gm/ Sodium 50 mls @ 100 mls/hr 06/04/25 15:00 06/04/25 14:28 Chloride IVPB 100 mls/hr Q12H MARLON Administration Insulin Aspart 2 - 5 units 05/31/25 12:00 06/04/25 12:01 Insulin Aspart (*Bkc) 100 Units/Ml SUB-Q Not Given Q6HR MARLON Protocol Multi-Ingred Cream/Lotion/Oil/Oint 1 applic 05/31/25 21:00 06/04/25 09:32 Mineral Oil/White Petrolatum Ointment EACH EYE 1 applic Q12HR MARLON Administration Pantoprazole Sodium 40 mg 05/31/25 09:00 06/04/25 09:32 Pantoprazole Sodium Iv 40 Mg Vial IV PUSH 40 mg Q12HR MARLON Administration Sodium Chloride 10 ml 05/31/25 06:00 06/04/25 13:36 Central Line Flush IV PUSH 10 ml Q8HR MARLON Administration Sodium Chloride 20 ml 05/30/25 23:54 06/04/25 04:28 Central Line Flush IV PUSH 20 ml PRN PRN Administration after blood draws Valproate Sodium 750 mg 06/01/25 21:00 06/03/25 20:28 Valproic Acid Liq 250 Mg/5 Ml Oral Solution Udc PO 750 mg HS MARLON Administration Radiology Results: ITS Impressions Chest/Abdomen/Pelvis CT 05/31/25 05:43 Impression: Complete right middle and lower lobe consolidation with a tree-in-bud and centrilobular nodules in the right upper lobe. Findings are compatible with extensive aspiration pneumonia, with fluid opacification of bronchus intermedius. Possible mild wall thickening extensively involving large bowel, as detailed above. Correlate for infectious/inflammatory colitis versus underdistention. Head CT 05/31/25 05:43 Impression: No intracranial abnormality seen. Sinus disease, as above. Abdomen X-Ray 05/31/25 09:28 IMPRESSION: 1: NG tube tip in the stomach. Renal Ultrasound 05/31/25 13:15 IMPRESSION: No abnormality seen in the kidneys. Reed's catheter seen in the urinary bladder. Chest X-Ray 06/04/25 07:12 Impression: Stable right basilar consolidation. Stable support tubes. Labs Labs: Laboratory Results - last 24 hr 06/01/25 06/03/25 06/03/25 05:36 17:05 23:46 WBC RBC Hgb Hct MCV MCH MCHC RDW Plt Count MPV Immature Gran % (Auto) Neut % (Auto) Lymph % (Auto) [place] % (Auto) Eos % (Auto) Baso % (Auto) Lymph # (Auto) [place] # (Auto) Eos # (Auto) Baso # (Auto) Abs Immat Gran (auto) Absolute Neuts (auto) Absolute Nucleated RBC Nucleated RBC % Puncture Site ABG pH ABG pCO2 ABG pO2 ABG PO2/FiO2 Ratio ABG HCO3 ABG O2 Saturation ABG O2 Content ABG Base Excess A-a Gradient Oxyhemoglobin Carboxyhemoglobin Methemoglobin Reduced Hemoglobin Total Hemoglobin O2 Delivery Device O2 Liters/Min Minute Volume Vent Rate Vent Mode FiO2 Tidal Volume PEEP Peak Inspir Pressure Pressure Support Sodium Potassium Chloride Carbon Dioxide Anion Gap BUN Creatinine Estim Creat Clear Calc Estimated GFR Glucose POC Capillary Glucose 110 H 102 Calcium Phosphorus Magnesium Total Bilirubin AST ALT Alkaline Phosphatase Total Protein Albumin Random Vancomycin Blood Type O Positive Antibody Screen Negative Crossmatch See Detail 06/04/25 06/04/25 06/04/25 04:27 05:22 09:57 WBC 12.7 H RBC 2.28 L Hgb 6.6 L* Hct 21.5 L MCV 94.3 MCH 28.9 MCHC 30.7 L RDW 17.0 H Plt Count 160 MPV 12.7 H Immature Gran % (Auto) 0.9 H Neut % (Auto) 83.6 H Lymph % (Auto) 8.0 L [place] % (Auto) 5.6 Eos % (Auto) 1.7 Baso % (Auto) 0.2 Lymph # (Auto) 1.01 [place] # (Auto) 0.7 H Eos # (Auto) 0.2 Baso # (Auto) 0.0 Abs Immat Gran (auto) 0.11 H Absolute Neuts (auto) 10.6 H Absolute Nucleated RBC 0.020 H Nucleated RBC % 0.2 Puncture Site Right radial Left radial ABG pH 7.485 H 7.436 ABG pCO2 33.1 L 34.1 L ABG pO2 147.4 H 82.4 ABG PO2/FiO2 Ratio 4.21 2.35 ABG HCO3 24.4 22.4 ABG O2 Saturation 99.1 96.5 ABG O2 Content 10.8 L 12.8 L ABG Base Excess 1.0 -1.4 A-a Gradient 63.7 127.5 Oxyhemoglobin 98.1 95.8 Carboxyhemoglobin 1.3 Methemoglobin 0.1 Reduced Hemoglobin 0.5 Total Hemoglobin 7.6 L* 9.4 L O2 Delivery Device Ventilator Ventilator O2 Liters/Min Not Reportable 0.0 Minute Volume Not Reportable Not Reportable Vent Rate 16 Not Reportable Vent Mode Cmv Spontaneous FiO2 35 35 Tidal Volume 350 Not Reportable PEEP 8 8 Peak Inspir Pressure Not Reportable Not Reportable Pressure Support Not Reportable 5 Sodium 153 H Potassium 3.2 L Chloride 118 H Carbon Dioxide 23 Anion Gap 12 BUN 30 H Creatinine 1.07 H Estim Creat Clear Calc 44 Estimated GFR 52 L Glucose 102 POC Capillary Glucose Calcium 8.4 Phosphorus 2.5 Magnesium 2.0 Total Bilirubin 0.6 AST 26 ALT 16 Alkaline Phosphatase 81 Total Protein 5.9 L Albumin 3.5 Random Vancomycin 10.9 Blood Type Antibody Screen Crossmatch 06/04/25 11:56 WBC RBC Hgb Hct MCV MCH MCHC RDW Plt Count MPV Immature Gran % (Auto) Neut % (Auto) Lymph % (Auto) [place] % (Auto) Eos % (Auto) Baso % (Auto) Lymph # (Auto) [place] # (Auto) Eos # (Auto) Baso # (Auto) Abs Immat Gran (auto) Absolute Neuts (auto) Absolute Nucleated RBC Nucleated RBC % Puncture Site ABG pH ABG pCO2 ABG pO2 ABG PO2/FiO2 Ratio ABG HCO3 ABG O2 Saturation ABG O2 Content ABG Base Excess A-a Gradient Oxyhemoglobin Carboxyhemoglobin Methemoglobin Reduced Hemoglobin Total Hemoglobin O2 Delivery Device O2 Liters/Min Minute Volume Vent Rate Vent Mode FiO2 Tidal Volume PEEP Peak Inspir Pressure Pressure Support Sodium Potassium Chloride Carbon Dioxide Anion Gap BUN Creatinine Estim Creat Clear Calc Estimated GFR Glucose POC Capillary Glucose 80 Calcium Phosphorus Magnesium Total Bilirubin AST ALT Alkaline Phosphatase Total Protein Albumin Random Vancomycin Blood Type Antibody Screen Crossmatch
[2025-06-04 16:24] LABS: Anion Gap 8 mmol/L (4-12); Blood Urea Nitrogen 28 mg/dL (7-17); Calcium 8.4 mg/dL (8.4-10.2); Carbon Dioxide 24 mmol/L (22-30); Chloride 118 mmol/L (98-107); Estimated CRCL calculation 47 ml/min; Estimated Glomerular Filt Rate 56; Glucose 93 mg/dL (65-110); Potassium 4.0 mmol/L (3.4-5.0); Sodium 150 mmol/L (137-145)
--- NOTE | 2025-06-04 16:57 | P.PNIM_ITS ---
Progress Note: A&P Assessment and Plan (1) Septic shock: Code(s): A41.9 - Sepsis, unspecified organism; R65.21 - Severe sepsis with septic shock Status: Acute (2) Acute hypoxic respiratory failure: Code(s): J96.01 - Acute respiratory failure with hypoxia Status: Acute (3) Aspiration pneumonia: Qualifiers: Aspiration pneumonia type: unspecified Laterality: bilateral Lung location: unspecified part of lung Qualified Code(s): J69.0 - Pneumonitis due to inhalation of food and vomit Code(s): J69.0 - Pneumonitis due to inhalation of food and vomit Status: Acute (4) Acute renal failure: Code(s): N17.9 - Acute kidney failure, unspecified Status: Acute (5) Electrolyte abnormality: Code(s): E87.8 - Other disorders of electrolyte and fluid balance, not elsewhere classified Status: Acute (6) Anemia: Code(s): D64.9 - Anemia, unspecified Status: Acute Plan Upon arrival patient was intubated in ER, suspected respiratory failure 2/2 aspiration pneumonia, and admitted to ICU treated, Later patient was extubated and today patient was reassess by the contract clerk automobile as patient not able to clear thick secretion, the contract clerk [employer] spoke with patient brother who is her POA, made her DNR, and comfort care, will monitor. Subjective Date/time seen: 06/04/25 16:57 Interval history: Unresponsive H&P-Narrative: This is a 60-year-old female with a history of intellectual disability, schizoaffective disorder, dysphagia with the PEG tube, depression and anxiety, seizure disorder who presents from her senior care facility as she was found unresponsive, hypoxic, and with a fever. Hours before she was doing fine and she was given her nightly medications with pudding. Upon presentation to [place] [facility] on 05/30/2025 she was found to be hypotensive tachycardia tachypneic. She was unresponsive coughing frequently. On 15 L non-rebreather was still hypoxic with SpO2 73%. BVM ventilation initiated. She was then intubated for airway protection and respiratory failure. Central line placed left subclavian, 30 cc/kg bolus developed are administered. Norepinephrine started titrated all the way up to 50 mcg. Received 10 mg of etomidate, 70 mg of rocuronium. ER physician noted vomitus in the airway during intubation. Mechanical ventilator set at 350 mL tidal volume, 20 RR, peep of 8, FiO2 of 80%. Sedated with fentanyl. At this time she was saturating adequately. Noted fever 100.9, rectal Tylenol administered. Vancomycin cefepime and Flagyl administered. Upon arrival patient was intubated in ER, suspected respiratory failure 2/2 aspiration pneumonia, and admitted to ICU treated, Later patient was extubated and today patient was reassess by the contract clerk automobile as patient not able to clear thick secretion, the contract clerk automobile spoke with patient brother who is her POA, made her DNR, and comfort care, will monitor. Exam Narrative: Chronically ill Patient is comfortable, NAD HEENT: eyes are clear and none icteric LUNGS:CTA HEART: RR S1S2 ABD: BS+, Soft and nontender Lower extremities: no edema SKIN: nonjaundiced Neuro: grossly intact. Objective Data Vital Signs Vital Signs: Vital Signs - 24 hr 06/03/25 17:05 06/03/25 18:00 06/03/25 18:00 Temperature 37.4 C Pulse Rate 78 74 73 Respiratory Rate 18 Blood Pressure 115/68 108/59 L Pulse Oximetry 100 Oxygen Delivery Oxygen Flow Rate Fraction of Inspired Oxygen 06/03/25 18:51 06/03/25 19:15 06/03/25 19:15 Temperature Pulse Rate 81 77 77 Respiratory Rate 16 Blood Pressure 115/59 L Pulse Oximetry 100 Oxygen Delivery Mechanical Ventilation Oxygen Flow Rate Fraction of Inspired Oxygen 35 06/03/25 19:45 06/03/25 20:00 06/03/25 20:00 Temperature 37.7 C H Pulse Rate 90 93 85 Respiratory Rate 20 Blood Pressure 115/57 L 103/57 L Pulse Oximetry 99 Oxygen Delivery Oxygen Flow Rate Fraction of Inspired Oxygen 06/03/25 20:00 06/03/25 20:00 06/03/25 20:10 Temperature 37.8 C H Pulse Rate 93 82 Respiratory Rate 22 H 16 Blood Pressure Pulse Oximetry 99 99 Oxygen Delivery Mechanical Ventilation Oxygen Flow Rate Fraction of Inspired Oxygen 35 35 06/03/25 20:29 06/03/25 21:57 06/03/25 22:00 Temperature 38.1 C H Pulse Rate 119 H 95 103 H Respiratory Rate 18 Blood Pressure 112/62 111/58 L 113/60 Pulse Oximetry 100 Oxygen Delivery Oxygen Flow Rate Fraction of Inspired Oxygen 07/19/25 22:00 06/03/25 22:33 06/03/25 23:05 Temperature 38.1 C H Pulse Rate 103 H 92 75 Respiratory Rate 20 Blood Pressure Pulse Oximetry 100 100 Oxygen Delivery Mechanical Ventilation Oxygen Flow Rate Fraction of Inspired Oxygen 35 06/03/25 23:57 06/04/25 00:00 06/04/25 00:00 Temperature 38.3 C H Pulse Rate 88 88 88 Respiratory Rate 16 17 Blood Pressure 108/57 L 108/56 L Pulse Oximetry 100 100 Oxygen Delivery Mechanical Ventilation Oxygen Flow Rate Fraction of Inspired Oxygen 35 06/04/25 00:00 06/04/25 00:00 06/04/25 00:01 Temperature 38.3 C H Pulse Rate 113 H 83 Respiratory Rate 16 Blood Pressure Pulse Oximetry 100 Oxygen Delivery Oxygen Flow Rate Fraction of Inspired Oxygen 35 06/04/25 00:21 06/04/25 00:25 06/04/25 01:21 Temperature 38.3 C H 38.0 C H Pulse Rate 95 Respiratory Rate Blood Pressure 112/62 Pulse Oximetry Oxygen Delivery Oxygen Flow Rate Fraction of Inspired Oxygen 06/04/25 02:00 06/04/25 02:00 06/04/25 02:00 Temperature 37.1 C Pulse Rate 89 75 89 Respiratory Rate 20 Blood Pressure 94/54 L 94/54 L Pulse Oximetry 94 Oxygen Delivery Oxygen Flow Rate Fraction of Inspired Oxygen 06/04/25 02:27 06/04/25 02:34 06/04/25 02:55 Temperature 37.4 C 37.1 C Pulse Rate 75 78 Respiratory Rate 18 Blood Pressure Pulse Oximetry 97 94 95 Oxygen Delivery Mechanical Ventilation Oxygen Flow Rate Fraction of Inspired Oxygen 35 06/04/25 03:00 06/04/25 04:00 06/04/25 04:00 Temperature 35.4 C L 37.1 C Pulse Rate 63 62 Respiratory Rate 20 Blood Pressure 100/57 L 100/57 L Pulse Oximetry 97 100 Oxygen Delivery Oxygen Flow Rate Fraction of Inspired Oxygen 06/04/25 04:00 06/04/25 04:00 06/04/25 04:00 Temperature Pulse Rate 62 63 Respiratory Rate 18 Blood Pressure Pulse Oximetry 100 Oxygen Delivery Mechanical Ventilation Oxygen Flow Rate Fraction of Inspired Oxygen 35 35 06/04/25 05:22 06/04/25 05:56 06/04/25 06:00 Temperature 36.7 C Pulse Rate 71 84 81 Respiratory Rate 22 H Blood Pressure 94/50 L Pulse Oximetry 99 98 Oxygen Delivery Mechanical Ventilation Oxygen Flow Rate Fraction of Inspired Oxygen 35 06/04/25 06:00 06/04/25 06:00 06/04/25 06:12 Temperature 36.7 C 36.7 C Pulse Rate 80 83 81 Respiratory Rate 22 H 22 H Blood Pressure 90/55 L 90/55 L 90/47 L Pulse Oximetry 98 99 Oxygen Delivery Oxygen Flow Rate Fraction of Inspired Oxygen 06/04/25 06:12 06/04/25 06:54 06/04/25 07:12 Temperature 36.7 C 36.6 C Pulse Rate 81 73 70 Respiratory Rate 22 H 18 Blood Pressure 90/47 L 108/61 105/62 Pulse Oximetry 99 100 Oxygen Delivery Oxygen Flow Rate Fraction of Inspired Oxygen 06/04/25 08:00 06/04/25 08:00 06/04/25 08:00 Temperature 36.4 C Pulse Rate 94 96 Respiratory Rate 22 H Blood Pressure 109/64 109/64 Pulse Oximetry 100 Oxygen Delivery Oxygen Flow Rate Fraction of Inspired Oxygen 35 06/04/25 08:00 06/04/25 08:00 06/04/25 08:12 Temperature 36.4 C Pulse Rate 95 96 Respiratory Rate 24 H Blood Pressure 118/68 Pulse Oximetry 100 100 Oxygen Delivery Mechanical Ventilation Oxygen Flow Rate Fraction of Inspired Oxygen 35 06/04/25 08:30 06/04/25 08:31 06/04/25 08:31 Temperature Pulse Rate 96 93 Respiratory Rate 16 Blood Pressure Pulse Oximetry 100 Oxygen Delivery Mechanical Ventilation Oxygen Flow Rate Fraction of Inspired Oxygen 35 35 06/04/25 08:43 06/04/25 10:00 06/04/25 10:00 Temperature 36.4 C Pulse Rate 94 95 95 Respiratory Rate 23 H 21 H Blood Pressure 112/70 112/70 Pulse Oximetry 100 Oxygen Delivery Oxygen Flow Rate Fraction of Inspired Oxygen 06/04/25 10:00 06/04/25 10:13 06/04/25 12:00 Temperature Pulse Rate 96 104 H Respiratory Rate Blood Pressure 95/56 L Pulse Oximetry 99 Oxygen Delivery Nasal Cannula Oxygen Flow Rate 2 Fraction of Inspired Oxygen 06/04/25 12:00 06/04/25 12:00 06/04/25 12:00 Temperature 36.8 C Pulse Rate 103 H 101 H Respiratory Rate 27 H Blood Pressure 95/56 L Pulse Oximetry 99 98 Oxygen Delivery Nasal Cannula Oxygen Flow Rate 2 Fraction of Inspired Oxygen 06/04/25 14:00 06/04/25 14:00 06/04/25 14:00 Temperature 37.0 C Pulse Rate 107 H 109 H 98 Respiratory Rate 24 H Blood Pressure 111/66 111/66 Pulse Oximetry 96 Oxygen Delivery Oxygen Flow Rate Fraction of Inspired Oxygen 06/04/25 16:00 06/04/25 16:00 06/04/25 16:00 Temperature 36.9 C Pulse Rate 109 H 108 H Respiratory Rate 25 H Blood Pressure 91/63 L 91/63 L Pulse Oximetry 97 97 Oxygen Delivery Nasal Cannula Oxygen Flow Rate 2 Fraction of Inspired Oxygen 06/04/25 16:00 Temperature Pulse Rate 116 H Respiratory Rate Blood Pressure Pulse Oximetry Oxygen Delivery Oxygen Flow Rate Fraction of Inspired Oxygen Intake/Output Intake/Output: Intake & Output 06/01/25 06/02/25 06/03/25 06/04/25 23:59 23:59 23:59 23:59 Intake Total 1677.0 3479.8 3406.6 2698.0 Output Total 1240 2800 2250 2225 Balance 437.0 679.8 1156.6 473.0 Meds/Results Medications: Active Medications Generic Name Dose Route Start Last Admin Trade Name Freq PRN Reason Stop Dose Admin Acetaminophen 650 mg 05/31/25 07:12 06/04/25 00:21 Acetaminophen Elixir 325 Mg/10.15 Ml Udc PO 650 mg Q6H PRN Administration Mild Pain (1-3) or Fever Acetylcysteine 200 mg 06/03/25 20:00 06/04/25 08:28 Acetylcysteine 20% Inhal Soln 800 Mg/4 Ml Vial INHALATION 200 mg Q12HRT MARLON Administration Albuterol/Ipratropium 3 ml 06/03/25 07:53 06/04/25 08:28 Ipratropium 0.5 Mg/Albuterol Sulfate 2.5 Mg Ampul.Neb 3 Ml INHALATION 3 ml Q6HRT PRN Administration wheezing Dextrose 12.5 gm 05/31/25 10:14 Dextrose 50% 25 Gm/50 Ml Syringe IV PUSH PRN PRN Hypoglycemia Protocol Enoxaparin Sodium 40 mg 06/03/25 09:00 06/04/25 09:32 Enoxaparin 40 Mg/0.4 Ml Syringe SUB-Q 40 mg DAILY MARLON Administration Glucagon 1 mg 05/31/25 10:14 Glucagon For Inj 1 Mg Vial IM PRN PRN Hypoglycemia Protocol Glucose 15 gm 05/31/25 10:14 Glucose Oral Gel 15 Gm Of Glucse In 37.5 Gm Tube PO PRN PRN Hypoglycemia Protocol Norepinephrine Bitartrate 8 mg in 250 mls @ 0 mls/hr 05/30/25 23:25 06/04/25 16:00 Levophed 8 Mg/D5w 250 Ml IV CONT 0 mcg/min .Q0M MARLON 0 mls/hr Titration Protocol 0 MCG/MIN Metronidazole 500 mg in 100 mls @ 100 mls/hr 05/31/25 13:00 06/04/25 13:29 Flagyl 500 Mg/Iso Soln 100 Ml IVPB 100 mls/hr Q8HR MARLON Administration Dextrose 1,000 mls @ 100 mls/hr 05/31/25 10:14 Dextrose 5% 1,000 Ml IVPB PRN PRN Hypoglycemia Protocol Cefepime HCl 2 gm/ Sodium 50 mls @ 100 mls/hr 06/04/25 15:00 06/04/25 14:28 Chloride IVPB 100 mls/hr Q12H MARLON Administration Insulin Aspart 2 - 5 units 05/31/25 12:00 06/04/25 12:01 Insulin Aspart (*Bkc) 100 Units/Ml SUB-Q Not Given Q6HR MARLON Protocol Multi-Ingred Cream/Lotion/Oil/Oint 1 applic 05/31/25 21:00 06/04/25 09:32 Mineral Oil/White Petrolatum Ointment EACH EYE 1 applic Q12HR MARLON Administration Pantoprazole Sodium 40 mg 05/31/25 09:00 06/04/25 09:32 Pantoprazole Sodium Iv 40 Mg Vial IV PUSH 40 mg Q12HR MARLON Administration Sodium Chloride 10 ml 05/31/25 06:00 06/04/25 13:36 Central Line Flush IV PUSH 10 ml Q8HR MARLON Administration Sodium Chloride 20 ml 05/30/25 23:54 06/04/25 04:28 Central Line Flush IV PUSH 20 ml PRN PRN Administration after blood draws Valproate Sodium 750 mg 06/01/25 21:00 06/03/25 20:28 Valproic Acid Liq 250 Mg/5 Ml Oral Solution Udc PO 750 mg HS MARLON Administration Radiology Results: ITS Impressions Chest/Abdomen/Pelvis CT 05/31/25 05:43 Impression: Complete right middle and lower lobe consolidation with a tree-in-bud and centrilobular nodules in the right upper lobe. Findings are compatible with extensive aspiration pneumonia, with fluid opacification of bronchus intermedius. Possible mild wall thickening extensively involving large bowel, as detailed above. Correlate for infectious/inflammatory colitis versus underdistention. Head CT 05/31/25 05:43 Impression: No intracranial abnormality seen. Sinus disease, as above. Abdomen X-Ray 05/31/25 09:28 IMPRESSION: 1: NG tube tip in the stomach. Renal Ultrasound 05/31/25 13:15 IMPRESSION: No abnormality seen in the kidneys. Reed's catheter seen in the urinary bladder. Chest X-Ray 06/04/25 07:12 Impression: Stable right basilar consolidation. Stable support tubes. Labs Labs: Laboratory Results - last 24 hr 06/01/25 06/03/25 06/03/25 05:36 17:05 23:46 WBC RBC Hgb Hct MCV MCH MCHC RDW Plt Count MPV Immature Gran % (Auto) Neut % (Auto) Lymph % (Auto) Moore % (Auto) Eos % (Auto) Baso % (Auto) Lymph # (Auto) Moore # (Auto) Eos # (Auto) Baso # (Auto) Abs Immat Gran (auto) Absolute Neuts (auto) Absolute Nucleated RBC Nucleated RBC % Puncture Site ABG pH ABG pCO2 ABG pO2 ABG PO2/FiO2 Ratio ABG HCO3 ABG O2 Saturation ABG O2 Content ABG Base Excess A-a Gradient Oxyhemoglobin Carboxyhemoglobin Methemoglobin Reduced Hemoglobin Total Hemoglobin O2 Delivery Device O2 Liters/Min Minute Volume Vent Rate Vent Mode FiO2 Tidal Volume PEEP Peak Inspir Pressure Pressure Support Sodium Potassium Chloride Carbon Dioxide Anion Gap BUN Creatinine Estim Creat Clear Calc Estimated GFR Glucose POC Capillary Glucose 110 H 102 Calcium Phosphorus Magnesium Total Bilirubin AST ALT Alkaline Phosphatase Total Protein Albumin Random Vancomycin Blood Type O Positive Antibody Screen Negative Crossmatch See Detail 06/04/25 06/04/25 06/04/25 04:27 05:22 09:57 WBC 12.7 H RBC 2.28 L Hgb 6.6 L* Hct 21.5 L MCV 94.3 MCH 28.9 MCHC 30.7 L RDW 17.0 H Plt Count 160 MPV 12.7 H Immature Gran % (Auto) 0.9 H Neut % (Auto) 83.6 H Lymph % (Auto) 8.0 L Moore % (Auto) 5.6 Eos % (Auto) 1.7 Baso % (Auto) 0.2 Lymph # (Auto) 1.01 Moore # (Auto) 0.7 H Eos # (Auto) 0.2 Baso # (Auto) 0.0 Abs Immat Gran (auto) 0.11 H Absolute Neuts (auto) 10.6 H Absolute Nucleated RBC 0.020 H Nucleated RBC % 0.2 Puncture Site Right radial Left radial ABG pH 7.485 H 7.436 ABG pCO2 33.1 L 34.1 L ABG pO2 147.4 H 82.4 ABG PO2/FiO2 Ratio 4.21 2.35 ABG HCO3 24.4 22.4 ABG O2 Saturation 99.1 96.5 ABG O2 Content 10.8 L 12.8 L ABG Base Excess 1.0 -1.4 A-a Gradient 63.7 127.5 Oxyhemoglobin 98.1 95.8 Carboxyhemoglobin 1.3 Methemoglobin 0.1 Reduced Hemoglobin 0.5 Total Hemoglobin 7.6 L* 9.4 L O2 Delivery Device Ventilator Ventilator O2 Liters/Min Not Reportable 0.0 Minute Volume Not Reportable Not Reportable Vent Rate 16 Not Reportable Vent Mode Cmv Spontaneous FiO2 35 35 Tidal Volume 350 Not Reportable PEEP 8 8 Peak Inspir Pressure Not Reportable Not Reportable Pressure Support Not Reportable 5 Sodium 153 H Potassium 3.2 L Chloride 118 H Carbon Dioxide 23 Anion Gap 12 BUN 30 H Creatinine 1.07 H Estim Creat Clear Calc 44 Estimated GFR 52 L Glucose 102 POC Capillary Glucose Calcium 8.4 Phosphorus 2.5 Magnesium 2.0 Total Bilirubin 0.6 AST 26 ALT 16 Alkaline Phosphatase 81 Total Protein 5.9 L Albumin 3.5 Random Vancomycin 10.9 Blood Type Antibody Screen Crossmatch 06/04/25 06/04/25 11:56 15:59 WBC RBC Hgb Hct MCV MCH MCHC RDW Plt Count MPV Immature Gran % (Auto) Neut % (Auto) Lymph % (Auto) Moore % (Auto) Eos % (Auto) Baso % (Auto) Lymph # (Auto) Moore # (Auto) Eos # (Auto) Baso # (Auto) Abs Immat Gran (auto) Absolute Neuts (auto) Absolute Nucleated RBC Nucleated RBC % Puncture Site ABG pH ABG pCO2 ABG pO2 ABG PO2/FiO2 Ratio ABG HCO3 ABG O2 Saturation ABG O2 Content ABG Base Excess A-a Gradient Oxyhemoglobin Carboxyhemoglobin Methemoglobin Reduced Hemoglobin Total Hemoglobin O2 Delivery Device O2 Liters/Min Minute Volume Vent Rate Vent Mode FiO2 Tidal Volume PEEP Peak Inspir Pressure Pressure Support Sodium 150 H Potassium 4.0 Chloride 118 H Carbon Dioxide 24 Anion Gap 8 BUN 28 H Creatinine 1.00 Estim Creat Clear Calc 47 Estimated GFR 56 L Glucose 93 POC Capillary Glucose 80 Calcium 8.4 Phosphorus Magnesium Total Bilirubin AST ALT Alkaline Phosphatase Total Protein Albumin Random Vancomycin Blood Type Antibody Screen Crossmatch
[2025-06-04] MEDS: VALPROIC ACID LIQ 250 MG/5 ML ORAL SOLUTION UDC 750 MG PO (20:03)
--- NOTE | 2025-06-04 22:54 | PCRCNOTE ---
2245: patient coughing with audible secretions in oropharynx, suctioned via [place]
[2025-06-05] VITALS (24 sets, daily range): BP systolic 84–141; BP diastolic 48–82; PULSE 86–119; RESP 16–32; TEMP 36.8–38.1; O2SAT 87–96
[2025-06-05] MEDS: CEFEPIME 2 GM in SODIUM CHLORIDE 0.9% IV 50 ML 100 ML IVPB ×2 (03:04→15:08)
[2025-06-05 03:49] LABS: Hematocrit 28.7 % (37.0-47.0); Hemoglobin 9.0 g/dL (12.0-15.0); Immature Granulocyte Percent A 0.9 % (0-0.5); Lymphocytes Absolute Auto 1.08 K/mm3 (0.9-3.2); Mean Corpuscular HGB Conc 31.4 g/dl (32-36); Mean Corpuscular Hemoglobin 28.9 pg (26-34); Mean Corpuscular Volume 92.3 fl (80-100); Nucleated Red Blood Cells Absolute Auto 0.000 K/mm3 (0.0-0.012); Nucleated Red Blood Cells Perc 0.0 % (0.0-0.2); Platelet Count Result 189 k/mm3 (150-375); Red Blood Count 3.11 M/mm3 (4.2-5.4); White Blood Count 12.9 K/mm3 (4.5-10.0)
[2025-06-05 04:10] LABS: Alanine Aminotransferase 16 U/L (6-35); Albumin Level 3.0 g/dL (3.5-5.1); Alkaline Phosphatase 102 U/L (38-126); Anion Gap 5 mmol/L (4-12); Aspartate Amino Transferase 28 U/L (14-36); Bilirubin,Total 0.6 mg/dL (0.2-1.3); Blood Urea Nitrogen 28 mg/dL (7-17); Calcium 8.4 mg/dL (8.4-10.2); Carbon Dioxide 25 mmol/L (22-30); Chloride 115 mmol/L (98-107); Estimated CRCL calculation 48 ml/min; Estimated Glomerular Filt Rate 58; Glucose 81 mg/dL (65-110); Magnesium 2.1 mg/dL (1.6-2.3); Potassium 4.1 mmol/L (3.4-5.0); Sodium 145 mmol/L (137-145); Total Protein 5.6 g/dL (6.3-8.2)
[2025-06-05] MEDS: metroNIDAZOLE 500 MG/ISO 100ML 500 MG/100 ML BAG 100 MG IVPB ×3 (05:43→22:42)
[2025-06-05] MEDS: CENTRAL LINE FLUSH 10 ML IV PUSH ×3 (05:45→20:01)
--- NOTE | 2025-06-05 08:05 | WPDINTPN ---
Progress Note: A&P Assessment and Plan (1) Septic shock: Code(s): A41.9 - Sepsis, unspecified organism; R65.21 - Severe sepsis with septic shock Status: Acute Assessment and Plan: Patient presented with hypoxemic respiratory failure, hypotension, tachycardia, tachypnea Received IV fluids and was started on vasopressors Now off of vasopressors -continue cefepime, metronidazole (05/31) -received 1 dose of vancomycin (05/31), MRSA PCR is negative, vancomycin was discontinued (05/31) -05/31: Sputum cultures negative Blood cultures grew Gram-positive cocci and vancomycin was resumed temporally. Her cultures came back suggesting Staph hominis and epidermidis likely secondary to contamination and vancomycin was discontinue Echo Summary 1. Technically challenging exam with patient on the ventilator, definity contrast used to improve examination quality. 2. Normal appearing left and right ventricular systolic function. 3. Mildly sclerotic aortic valve with well maintained leaflet excursion. 4. No evidence of infectious vegetation is identified. (2) Acute hypoxemic respiratory failure: Code(s): J96.01 - Acute respiratory failure with hypoxia Status: Acute Assessment and Plan: Patient presented with tachypnea, hypoxemia, GCS of 6, septic shock, acute hypoxemic respiratory failure, likely related to aspiration pneumonia as she was given her pills with some pudding and shortly after that patient was found hypoxic with hypotension and febrile at the nursing facility. Patient does have a PEG tube in place -05/31: Intubated in the ER -06/01 bronchoscopy was done and showed right-sided extensive secretions 06/04 03/23 PSV trial done for close to an hour. RSBI, ABGI and Vitals acceptable. Pt awake but does not follow commands. Which appears to be close to patient's baseline. Will extubated monitor patient. Patient will need frequent suctioning for respiratory and oral secretion. Patient appears overall weak. Will monitor closely. Patient is now DNR DNI Continue supplemental oxygen Continue aggressive suctioning both oral and nasal trachea I discussed with respiratory therapist will start CPT (3) Aspiration pneumonia: Qualifiers: Aspiration pneumonia type: unspecified Laterality: bilateral Lung location: unspecified part of lung Qualified Code(s): J69.0 - Pneumonitis due to inhalation of food and vomit Code(s): J69.0 - Pneumonitis due to inhalation of food and vomit Status: Acute Assessment and Plan: See above (4) Acute renal failure: Code(s): N17.9 - Acute kidney failure, unspecified Status: Acute Assessment and Plan: Acute kidney injury, low urine output could be related to hypoxia, hypotension, ATN -creatinine on admission was 2.82, (baseline creatinine 0.6-0.9 in February of 2025) -patient has been adequately fluid-resuscitated -nephrology follow -unremarkable renal ultrasound, -continue to monitor renal function, electrolytes and urine output -avoid nephrotoxic medications -creatinine and urine output is improving (5) Electrolyte abnormality: Code(s): E87.8 - Other disorders of electrolyte and fluid balance, not elsewhere classified Status: Acute Assessment and Plan: HYPERNATREMIA: Secondary to dehydration decreased oral intake, insensible losses. Presented with a sodium level of 174 on admission -sodium levels being managed by Nephrology and have improved significant Will decrease free water flushes (6) Anemia: Code(s): D64.9 - Anemia, unspecified Status: Acute Assessment and Plan: 06/01: Patient dropped hemoglobin to 6.9 from 8.5 yesterday -06/01: Patient was transferred 1 unit of packed RBCs Normal vitamin B12, folic acid Iron panel suggested again iron deficiency 06/02 patient underwent EGD which was negative 06/04 hemoglobin 6.6. I will transfuse 1 more unit of PRBC. No obvious sign of bleeding. Continue DVT prophylaxis Lovenox at this time Plan DVT prophylaxis: Lovenox and SCDs Stress ulcer prophylaxis: Protonix IV q.12 hours Nutrition: Advance tube feed Code Status: DNR DNI 06/04 Patient appears borderline she has a week cough and has been requiring frequent suctioning. Intermittently she gets tachypnea although not in any distress. She is maintaining a saturation on nasal cannula. I spoke to her POA and brother Trae by phone and updated him with events overnight including extubation and borderline respiratory status which may need re-intubation if she is unable to clear her secretions or developed respiratory distress. He does not believe the patient would want re-intubation he. He states the patient has been in [facility] and for the last 4 years she has been having issues with aspiration and has been gradually getting weak with poor quality of life. At this point he wants us to continue medical management but does not want intubation if her respiratory status deteriorates or CPR in case of cardiac arrest. He believes if patient improves with conservative management then it is Code otherwise he will consider palliative care. I have answered all his questions and updated the code status as per Trae's assessment of patient's wishes. Transfer out of ICU today Subjective Date/time seen: 06/05/25 08:05 She was extubated after a successful weaning trial. She has done okay as far as hypoxia is considered she is only on 2 L of nasal cannula. She has been requiring frequent suctioning as she has a very weak cough. Her mental status unchanged she is awake but does not follow commands and just has a blank stare towards the examiner. She had 1 episode of vomiting yesterday and still feeds were decreased. She is afebrile this morning. She is off of vasopressors and continuous infusion Urine output is adequate Review of system is not obtainable Review of Systems Review of Systems: ROS unobtainable: Yes unobtainable due to medical condition and unobtainable due to mental status Exam Narrative: General: Awake and in no acute distress HEENT:? Pupils are pinpoint and sluggish, sclera is clear, Neck:? Supple Respiratory:? Coarse breath sounds on right > left, no wheezing, adequate air entry Cardiac:? S1-S2 is normal, regular rate and rhythm Abdomen:? Soft, nontender, nondistended, PEG tube in placed, hypoactive bowel sounds Extremities:? Trace edema, palpable pedal pulse Neuro:? Patient is off sedation, she is awake with her eyes open and a blank stare. She moves upper extremities sometimes but does not follow any commands. She does withdraw to painful stimuli. As per penitentiary report patient does not follow commands at the penitentiary either Skin:? Excoriations and scratch issa noted on the abdominal on the umbilicus, old healing wounds on the toes Psych:? Unable to assess at this time Objective Data Vital Signs Vital Signs: Vital Signs - 24 hr 06/04/25 08:12 06/04/25 08:30 06/04/25 08:31 Temperature 36.4 C Pulse Rate 96 96 93 Respiratory Rate 24 H 16 Blood Pressure 118/68 Pulse Oximetry 100 100 Oxygen Delivery Mechanical Ventilation Oxygen Flow Rate Fraction of Inspired Oxygen 35 06/04/25 08:31 06/04/25 08:43 06/04/25 10:00 Temperature 36.4 C Pulse Rate 94 95 Respiratory Rate 23 H 21 H Blood Pressure 112/70 Pulse Oximetry 100 Oxygen Delivery Oxygen Flow Rate Fraction of Inspired Oxygen 35 06/04/25 10:00 06/04/25 10:00 06/04/25 10:13 Temperature Pulse Rate 95 96 Respiratory Rate Blood Pressure 112/70 Pulse Oximetry 99 Oxygen Delivery Nasal Cannula Oxygen Flow Rate 2 Fraction of Inspired Oxygen 06/04/25 12:00 06/04/25 12:00 06/04/25 12:00 Temperature 36.8 C Pulse Rate 104 H 103 H Respiratory Rate 27 H Blood Pressure 95/56 L 95/56 L Pulse Oximetry 99 98 Oxygen Delivery Nasal Cannula Oxygen Flow Rate 2 Fraction of Inspired Oxygen 06/04/25 12:00 06/04/25 14:00 06/04/25 14:00 Temperature 37.0 C Pulse Rate 101 H 107 H 109 H Respiratory Rate 24 H Blood Pressure 111/66 111/66 Pulse Oximetry 96 Oxygen Delivery Oxygen Flow Rate Fraction of Inspired Oxygen 06/04/25 14:00 06/04/25 16:00 06/04/25 16:00 Temperature 36.9 C Pulse Rate 98 109 H Respiratory Rate 25 H Blood Pressure 91/63 L Pulse Oximetry 97 97 Oxygen Delivery Nasal Cannula Oxygen Flow Rate 2 Fraction of Inspired Oxygen 06/04/25 16:00 06/04/25 16:00 06/04/25 18:00 Temperature Pulse Rate 108 H 116 H 103 H Respiratory Rate Blood Pressure 91/63 L Pulse Oximetry Oxygen Delivery Oxygen Flow Rate Fraction of Inspired Oxygen 06/04/25 18:00 06/04/25 18:00 06/04/25 20:00 Temperature 37.4 C Pulse Rate 99 99 111 H Respiratory Rate 29 H Blood Pressure 108/54 L 108/54 L 123/61 Pulse Oximetry 95 Oxygen Delivery Oxygen Flow Rate Fraction of Inspired Oxygen 06/04/25 20:00 06/04/25 20:00 06/04/25 20:00 Temperature 37.6 C Pulse Rate 110 H 110 H Respiratory Rate 30 H Blood Pressure 123/61 Pulse Oximetry 93 93 Oxygen Delivery Nasal Cannula Oxygen Flow Rate 2 Fraction of Inspired Oxygen 06/04/25 20:55 06/04/25 20:55 06/04/25 22:00 Temperature Pulse Rate 102 H 102 H 99 Respiratory Rate 25 H 25 H Blood Pressure Pulse Oximetry 94 Oxygen Delivery Nasal Cannula Oxygen Flow Rate 2 Fraction of Inspired Oxygen 06/04/25 22:00 06/04/25 22:00 06/04/25 22:00 Temperature 37.6 C H 37.6 C H Pulse Rate 99 99 97 Respiratory Rate 27 H 26 H Blood Pressure 97/52 L 97/52 L Pulse Oximetry 93 93 Oxygen Delivery Oxygen Flow Rate Fraction of Inspired Oxygen 06/05/25 00:00 06/05/25 00:00 06/05/25 00:00 Temperature 37.4 C Pulse Rate 91 92 Respiratory Rate 24 H Blood Pressure 103/58 L 103/58 L Pulse Oximetry 96 96 Oxygen Delivery Nasal Cannula Oxygen Flow Rate 2 Fraction of Inspired Oxygen 06/05/25 00:00 06/05/25 02:00 06/05/25 02:00 Temperature Pulse Rate 95 100 100 Respiratory Rate Blood Pressure 84/52 L Pulse Oximetry Oxygen Delivery Oxygen Flow Rate Fraction of Inspired Oxygen 06/05/25 02:00 06/05/25 02:15 06/05/25 03:30 Temperature 37.2 C Pulse Rate 98 107 H 99 Respiratory Rate 19 Blood Pressure 116/63 116/63 116/62 Pulse Oximetry 94 Oxygen Delivery Oxygen Flow Rate Fraction of Inspired Oxygen 06/05/25 04:00 06/05/25 04:00 06/05/25 04:00 Temperature Pulse Rate 86 86 Respiratory Rate Blood Pressure 100/58 L Pulse Oximetry 94 Oxygen Delivery Nasal Cannula Oxygen Flow Rate 2 Fraction of Inspired Oxygen 06/05/25 04:00 06/05/25 06:00 06/05/25 06:00 Temperature 36.9 C Pulse Rate 86 91 91 Respiratory Rate 21 H Blood Pressure 100/58 L 104/59 L Pulse Oximetry 95 Oxygen Delivery Oxygen Flow Rate Fraction of Inspired Oxygen 06/05/25 06:00 Temperature 36.8 C Pulse Rate 90 Respiratory Rate 16 Blood Pressure 104/59 L Pulse Oximetry 95 Oxygen Delivery Oxygen Flow Rate Fraction of Inspired Oxygen Intake/Output Intake/Output: Intake & Output 06/02/25 06/03/25 06/04/25 06/05/25 23:59 23:59 23:59 23:59 Intake Total 3479.8 3406.6 2948.0 809 Output Total 2800 2250 2225 700 Balance 679.8 1156.6 723.0 109 Meds/Results Medications: Active Medications Generic Name Dose Route Start Last Admin Trade Name Freq PRN Reason Stop Dose Admin Acetaminophen 650 mg 05/31/25 07:12 06/04/25 00:21 Acetaminophen Elixir 325 Mg/10.15 Ml Udc PO 650 mg Q6H PRN Administration Mild Pain (1-3) or Fever Acetylcysteine 200 mg 06/03/25 20:00 06/04/25 20:55 Acetylcysteine 20% Inhal Soln 800 Mg/4 Ml Vial INHALATION 200 mg Q12HRT MARLON Administration Albuterol/Ipratropium 3 ml 06/03/25 07:53 06/04/25 20:55 Ipratropium 0.5 Mg/Albuterol Sulfate 2.5 Mg Ampul.Neb 3 Ml INHALATION 3 ml Q6HRT PRN Administration wheezing Dextrose 12.5 gm 05/31/25 10:14 Dextrose 50% 25 Gm/50 Ml Syringe IV PUSH PRN PRN Hypoglycemia Protocol Enoxaparin Sodium 40 mg 06/03/25 09:00 06/04/25 09:32 Enoxaparin 40 Mg/0.4 Ml Syringe SUB-Q 40 mg DAILY MARLON Administration Glucagon 1 mg 05/31/25 10:14 Glucagon For Inj 1 Mg Vial IM PRN PRN Hypoglycemia Protocol Glucose 15 gm 05/31/25 10:14 Glucose Oral Gel 15 Gm Of Glucse In 37.5 Gm Tube PO PRN PRN Hypoglycemia Protocol Norepinephrine Bitartrate 8 mg in 250 mls @ 0 mls/hr 05/30/25 23:25 06/05/25 06:00 Levophed 8 Mg/D5w 250 Ml IV CONT 0 mcg/min .Q0M MARLON 0 mls/hr Titration Protocol 0 MCG/MIN Metronidazole 500 mg in 100 mls @ 100 mls/hr 05/31/25 13:00 06/05/25 06:43 Flagyl 500 Mg/Iso Soln 100 Ml IVPB Infused Q8HR MARLON Infusion Dextrose 1,000 mls @ 100 mls/hr 05/31/25 10:14 Dextrose 5% 1,000 Ml IVPB PRN PRN Hypoglycemia Protocol Cefepime HCl 2 gm/ Sodium 50 mls @ 100 mls/hr 06/04/25 15:00 06/05/25 03:34 Chloride IVPB Infused Q12H MARLON Infusion Insulin Aspart 2 - 5 units 05/31/25 12:00 06/05/25 05:57 Insulin Aspart (*Bkc) 100 Units/Ml SUB-Q Not Given Q6HR MARLON Protocol Multi-Ingred Cream/Lotion/Oil/Oint 1 applic 05/31/25 21:00 06/04/25 20:03 Mineral Oil/White Petrolatum Ointment EACH EYE 1 applic Q12HR MARLON Administration Pantoprazole Sodium 40 mg 05/31/25 09:00 06/04/25 20:03 Pantoprazole Sodium Iv 40 Mg Vial IV PUSH 40 mg Q12HR MARLON Administration Sodium Chloride 10 ml 05/31/25 06:00 06/05/25 05:45 Central Line Flush IV PUSH 10 ml Q8HR MARLON Administration Sodium Chloride 20 ml 05/30/25 23:54 06/04/25 04:28 Central Line Flush IV PUSH 20 ml PRN PRN Administration after blood draws Valproate Sodium 750 mg 06/01/25 21:00 06/04/25 20:03 Valproic Acid Liq 250 Mg/5 Ml Oral Solution Udc PO 750 mg HS MARLON Administration Radiology Results: ITS Impressions Chest/Abdomen/Pelvis CT 05/31/25 05:43 Impression: Complete right middle and lower lobe consolidation with a tree-in-bud and centrilobular nodules in the right upper lobe. Findings are compatible with extensive aspiration pneumonia, with fluid opacification of bronchus intermedius. Possible mild wall thickening extensively involving large bowel, as detailed above. Correlate for infectious/inflammatory colitis versus underdistention. Head CT 05/31/25 05:43 Impression: No intracranial abnormality seen. Sinus disease, as above. Abdomen X-Ray 05/31/25 09:28 IMPRESSION: 1: NG tube tip in the stomach. Renal Ultrasound 05/31/25 13:15 IMPRESSION: No abnormality seen in the kidneys. Reed's catheter seen in the urinary bladder. Chest X-Ray 06/05/25 05:55 Impression: 1: Persistent right basilar airspace consolidation which may represent pneumonia and/or atelectasis. Labs Labs: Laboratory Results - last 24 hr 06/01/25 06/04/25 06/04/25 05:36 09:57 11:56 WBC RBC Hgb Hct MCV MCH MCHC RDW Plt Count MPV Immature Gran % (Auto) Neut % (Auto) Lymph % (Auto) Mathews % (Auto) Eos % (Auto) Baso % (Auto) Lymph # (Auto) Mathews # (Auto) Eos # (Auto) Baso # (Auto) Abs Immat Gran (auto) Absolute Neuts (auto) Absolute Nucleated RBC Nucleated RBC % Puncture Site Left radial ABG pH 7.436 ABG pCO2 34.1 L ABG pO2 82.4 ABG PO2/FiO2 Ratio 2.35 ABG HCO3 22.4 ABG O2 Saturation 96.5 ABG O2 Content 12.8 L ABG Base Excess -1.4 A-a Gradient 127.5 Oxyhemoglobin 95.8 Total Hemoglobin 9.4 L O2 Delivery Device Ventilator O2 Liters/Min 0.0 Minute Volume Not Reportable Vent Rate Not Reportable Vent Mode Spontaneous FiO2 35 Tidal Volume Not Reportable PEEP 8 Peak Inspir Pressure Not Reportable Pressure Support 5 Sodium Potassium Chloride Carbon Dioxide Anion Gap BUN Creatinine Estim Creat Clear Calc Estimated GFR Glucose POC Capillary Glucose 80 Calcium Phosphorus Magnesium Total Bilirubin AST ALT Alkaline Phosphatase Total Protein Albumin Crossmatch See Detail 06/04/25 06/04/25 06/05/25 15:59 17:19 00:05 WBC RBC Hgb Hct MCV MCH MCHC RDW Plt Count MPV Immature Gran % (Auto) Neut % (Auto) Lymph % (Auto) Mathews % (Auto) Eos % (Auto) Baso % (Auto) Lymph # (Auto) Mathews # (Auto) Eos # (Auto) Baso # (Auto) Abs Immat Gran (auto) Absolute Neuts (auto) Absolute Nucleated RBC Nucleated RBC % Puncture Site ABG pH ABG pCO2 ABG pO2 ABG PO2/FiO2 Ratio ABG HCO3 ABG O2 Saturation ABG O2 Content ABG Base Excess A-a Gradient Oxyhemoglobin Total Hemoglobin O2 Delivery Device O2 Liters/Min Minute Volume Vent Rate Vent Mode FiO2 Tidal Volume PEEP Peak Inspir Pressure Pressure Support Sodium 150 H Potassium 4.0 Chloride 118 H Carbon Dioxide 24 Anion Gap 8 BUN 28 H Creatinine 1.00 Estim Creat Clear Calc 47 Estimated GFR 56 L Glucose 93 POC Capillary Glucose 89 86 Calcium 8.4 Phosphorus Magnesium Total Bilirubin AST ALT Alkaline Phosphatase Total Protein Albumin Crossmatch 06/05/25 06/05/25 03:34 05:55 WBC 12.9 H RBC 3.11 L Hgb 9.0 L Hct 28.7 L MCV 92.3 MCH 28.9 MCHC 31.4 L RDW 16.8 H Plt Count 189 MPV 12.2 H Immature Gran % (Auto) 0.9 H Neut % (Auto) 83.6 H Lymph % (Auto) 8.4 L Mathews % (Auto) 5.5 Eos % (Auto) 1.4 Baso % (Auto) 0.2 Lymph # (Auto) 1.08 Mathews # (Auto) 0.7 H Eos # (Auto) 0.2 Baso # (Auto) 0.0 Abs Immat Gran (auto) 0.11 H Absolute Neuts (auto) 10.8 H Absolute Nucleated RBC 0.000 Nucleated RBC % 0.0 Puncture Site ABG pH ABG pCO2 ABG pO2 ABG PO2/FiO2 Ratio ABG HCO3 ABG O2 Saturation ABG O2 Content ABG Base Excess A-a Gradient Oxyhemoglobin Total Hemoglobin O2 Delivery Device O2 Liters/Min Minute Volume Vent Rate Vent Mode FiO2 Tidal Volume PEEP Peak Inspir Pressure Pressure Support Sodium 145 Potassium 4.1 Chloride 115 H Carbon Dioxide 25 Anion Gap 5 BUN 28 H Creatinine 0.98 Estim Creat Clear Calc 48 Estimated GFR 58 L Glucose 81 POC Capillary Glucose 86 Calcium 8.4 Phosphorus 2.6 Magnesium 2.1 Total Bilirubin 0.6 AST 28 ALT 16 Alkaline Phosphatase 102 Total Protein 5.6 L Albumin 3.0 L Crossmatch Quality VTE Prophylaxis VTE prophylaxis: pharmacologic ordered
[2025-06-05] MEDS: ACETYLCYSTEINE 20% INHAL SOLN 800 MG/4 ML VIAL 200 MG INHALATION ×2 (08:17→20:08)
[2025-06-05] MEDS: IPRATROPIUM 0.5 MG/ALBUTEROL SULFATE 2.5 MG AMPUL.NEB 3 ML INHALATION ×2 (08:17→20:07)
--- NOTE | 2025-06-05 08:46 | PCWOUND ---
WOCN NOTE Per Cindy RN, patient does not need to be assessed.
--- NOTE | 2025-06-05 09:06 | P.PNNP_ITS ---
Progress Note: A&P Assessment and Plan (1) Hypernatremia: Code(s): E87.0 - Hyperosmolality and hypernatremia Status: Acute Assessment and Plan: * high sodium * getting free water in tube feeding flushes and through to feedings. * Sodium level has come down to normal. She did not need any D5W yesterday. (2) Acute renal failure: Code(s): N17.9 - Acute kidney failure, unspecified Status: Acute Assessment and Plan: * MYLA * normal renal function ~ 3 months ago * evaluation to date noted: * renal ultrasound normal * urine electrolytes prerenal * urine eosinophils negative * CPK mildly elevated (not enough to affect kidney function) * suspect multifactorial: * hemodynamic instability/shock * infection/sepsis * diuretic and DOMINGUEZ-I use prior to admission * other(?) * creatinine level is normal. * Renal will sign off. * Please call if any issues arise in the future (3) Septic shock: Code(s): A41.9 - Sepsis, unspecified organism; R65.21 - Severe sepsis with septic shock Status: Acute Assessment and Plan: * as noted on presentation with acute respiratory failure with tachypnea, hypotension, tachycardia, leukocytosis, and fever * s/p aggressive IVF resuscitation but hypotension persisted * initiated on vasopressor therapy (levophed + vasopressin) * follow culture data * on cefipime, flagyl, and vancomycin * still on pressors but dose is very low. 1mcg when I saw her this morning * sbp now in the 100s (4) Acute hypoxic respiratory failure: Code(s): J96.01 - Acute respiratory failure with hypoxia Status: Acute Assessment and Plan: * as noted on presenation * suspect secondary to aspiration pneumonia * by report, took pills and pudding with subsequent hypoxia, tachypnea, low BP, and fever * intubated in ER and on mechanical ventilation * cxr still shows the infiltrate. * Pulmonary following * s/p bronchoscopy earlier today * Minute volume is only about 7 and FiO2 is 35. * getting an SBT. (5) Aspiration pneumonia: Qualifiers: Aspiration pneumonia type: unspecified Laterality: bilateral Lung location: unspecified part of lung Qualified Code(s): J69.0 - Pneumonitis due to inhalation of food and vomit Code(s): J69.0 - Pneumonitis due to inhalation of food and vomit Status: Acute Assessment and Plan: * suspected etiology of #4 and #3 * continue therapy as outlined (6) Anemia: Code(s): D64.9 - Anemia, unspecified Status: Acute Assessment and Plan: * presumably related to MYLA/ARF and acute illness * acute drop in H/H noted * possible coffee gorund emesis via OGT * GI recommendations noted -- EGD tomorrow * PRBC transfusion per turbogenerator operator. * hemoglobin lower. Subjective Date/time seen: 06/05/25 09:06 Interval history: Patient is awake but not very interactive. She is off the ventilator now and breathing on her own. Her O2 sats are good on 2L of oxygen. She is off pressors Exam Narrative: General: ill appearing female intubated and sedated and on mechanical ventilation Heart: normal S1 and S2; no rub Lungs: decreased breath sounds at the bases Abdomen: BS+ nontender Extremities: not much edema Skin: no rash or subcu nodule Objective Data Vital Signs Vital Signs: Vital Signs - 24 hr 06/04/25 10:00 06/04/25 10:00 06/04/25 10:00 Temperature 97.6 F Pulse Rate 95 95 96 Respiratory Rate 21 H Blood Pressure 112/70 112/70 Pulse Oximetry 100 Oxygen Delivery Oxygen Flow Rate Fraction of Inspired Oxygen 06/04/25 10:13 06/04/25 12:00 06/04/25 12:00 Temperature 98.2 F Pulse Rate 104 H 103 H Respiratory Rate 27 H Blood Pressure 95/56 L 95/56 L Pulse Oximetry 99 99 Oxygen Delivery Nasal Cannula Oxygen Flow Rate 2 Fraction of Inspired Oxygen 06/04/25 12:00 06/04/25 12:00 06/04/25 14:00 Temperature 98.6 F Pulse Rate 101 H 107 H Respiratory Rate 24 H Blood Pressure 111/66 Pulse Oximetry 98 96 Oxygen Delivery Nasal Cannula Oxygen Flow Rate 2 Fraction of Inspired Oxygen 06/04/25 14:00 06/04/25 14:00 06/04/25 16:00 Temperature 98.4 F Pulse Rate 109 H 98 109 H Respiratory Rate 25 H Blood Pressure 111/66 91/63 L Pulse Oximetry 97 Oxygen Delivery Oxygen Flow Rate Fraction of Inspired Oxygen 06/04/25 16:00 06/04/25 16:00 06/04/25 16:00 Temperature Pulse Rate 108 H 116 H Respiratory Rate Blood Pressure 91/63 L Pulse Oximetry 97 Oxygen Delivery Nasal Cannula Oxygen Flow Rate 2 Fraction of Inspired Oxygen 06/04/25 18:00 06/04/25 18:00 06/04/25 18:00 Temperature 99.3 F Pulse Rate 103 H 99 99 Respiratory Rate 29 H Blood Pressure 108/54 L 108/54 L Pulse Oximetry 95 Oxygen Delivery Oxygen Flow Rate Fraction of Inspired Oxygen 06/04/25 20:00 06/04/25 20:00 06/04/25 20:00 Temperature 99.6 F Pulse Rate 111 H 110 H 110 H Respiratory Rate 30 H Blood Pressure 123/61 123/61 Pulse Oximetry 93 Oxygen Delivery Oxygen Flow Rate Fraction of Inspired Oxygen 06/04/25 20:00 06/04/25 20:55 06/04/25 20:55 Temperature Pulse Rate 102 H 102 H Respiratory Rate 25 H 25 H Blood Pressure Pulse Oximetry 93 94 Oxygen Delivery Nasal Cannula Nasal Cannula Oxygen Flow Rate 2 2 Fraction of Inspired Oxygen 06/04/25 22:00 06/04/25 22:00 06/04/25 22:00 Temperature 99.7 F H Pulse Rate 99 99 99 Respiratory Rate 27 H Blood Pressure 97/52 L 97/52 L Pulse Oximetry 93 Oxygen Delivery Oxygen Flow Rate Fraction of Inspired Oxygen 06/04/25 22:00 06/05/25 00:00 06/05/25 00:00 Temperature 99.7 F H 99.4 F Pulse Rate 97 91 Respiratory Rate 26 H 24 H Blood Pressure 103/58 L Pulse Oximetry 93 96 96 Oxygen Delivery Nasal Cannula Oxygen Flow Rate 2 Fraction of Inspired Oxygen 06/05/25 00:00 06/05/25 00:00 06/05/25 02:00 Temperature Pulse Rate 92 95 100 Respiratory Rate Blood Pressure 103/58 L 84/52 L Pulse Oximetry Oxygen Delivery Oxygen Flow Rate Fraction of Inspired Oxygen 06/05/25 02:00 06/05/25 02:00 06/05/25 02:15 Temperature 99.0 F Pulse Rate 100 98 107 H Respiratory Rate 19 Blood Pressure 116/63 116/63 Pulse Oximetry 94 Oxygen Delivery Oxygen Flow Rate Fraction of Inspired Oxygen 06/05/25 03:30 06/05/25 04:00 06/05/25 04:00 Temperature Pulse Rate 99 86 86 Respiratory Rate Blood Pressure 116/62 100/58 L Pulse Oximetry Oxygen Delivery Oxygen Flow Rate Fraction of Inspired Oxygen 06/05/25 04:00 06/05/25 04:00 06/05/25 06:00 Temperature 98.5 F Pulse Rate 86 91 Respiratory Rate 21 H Blood Pressure 100/58 L Pulse Oximetry 94 95 Oxygen Delivery Nasal Cannula Oxygen Flow Rate 2 Fraction of Inspired Oxygen 06/05/25 06:00 06/05/25 06:00 06/05/25 08:00 Temperature 98.2 F Pulse Rate 91 90 105 H Respiratory Rate 16 23 H Blood Pressure 104/59 L 104/59 L Pulse Oximetry 95 93 Oxygen Delivery Nasal Cannula Oxygen Flow Rate 2 Fraction of Inspired Oxygen 35 06/05/25 08:00 06/05/25 08:00 06/05/25 08:00 Temperature 98.2 F 98.2 F Pulse Rate 103 H 103 H 102 H Respiratory Rate 23 H Blood Pressure 141/82 H 141/82 H Pulse Oximetry 91 95 Oxygen Delivery Oxygen Flow Rate Fraction of Inspired Oxygen 06/05/25 08:20 06/05/25 08:21 06/05/25 08:27 Temperature Pulse Rate 103 H 103 H 106 H Respiratory Rate 23 H 18 Blood Pressure Pulse Oximetry 93 Oxygen Delivery Nasal Cannula Oxygen Flow Rate 2 Fraction of Inspired Oxygen Intake/Output Intake/Output: Intake & Output 06/02/25 06/03/25 06/04/25 06/05/25 23:59 23:59 23:59 23:59 Intake Total 3479.8 3406.6 2948.0 809 Output Total 2800 2250 2225 700 Balance 679.8 1156.6 723.0 109 Meds/Results Medications: Active Medications Generic Name Dose Route Start Last Admin Trade Name Freq PRN Reason Stop Dose Admin Acetaminophen 650 mg 05/31/25 07:12 06/04/25 00:21 Acetaminophen Elixir 325 Mg/10.15 Ml Udc PO 650 mg Q6H PRN Administration Mild Pain (1-3) or Fever Acetylcysteine 200 mg 06/03/25 20:00 06/05/25 08:17 Acetylcysteine 20% Inhal Soln 800 Mg/4 Ml Vial INHALATION 200 mg Q12HRT MARLON Administration Albuterol/Ipratropium 3 ml 06/03/25 07:53 06/05/25 08:17 Ipratropium 0.5 Mg/Albuterol Sulfate 2.5 Mg Ampul.Neb 3 Ml INHALATION 3 ml Q6HRT PRN Administration wheezing Dextrose 12.5 gm 05/31/25 10:14 Dextrose 50% 25 Gm/50 Ml Syringe IV PUSH PRN PRN Hypoglycemia Protocol Enoxaparin Sodium 40 mg 06/03/25 09:00 06/04/25 09:32 Enoxaparin 40 Mg/0.4 Ml Syringe SUB-Q 40 mg DAILY MARLON Administration Glucagon 1 mg 05/31/25 10:14 Glucagon For Inj 1 Mg Vial IM PRN PRN Hypoglycemia Protocol Glucose 15 gm 05/31/25 10:14 Glucose Oral Gel 15 Gm Of Glucse In 37.5 Gm Tube PO PRN PRN Hypoglycemia Protocol Metronidazole 500 mg in 100 mls @ 100 mls/hr 05/31/25 13:00 06/05/25 06:43 Flagyl 500 Mg/Iso Soln 100 Ml IVPB Infused Q8HR MARLON Infusion Dextrose 1,000 mls @ 100 mls/hr 05/31/25 10:14 Dextrose 5% 1,000 Ml IVPB PRN PRN Hypoglycemia Protocol Cefepime HCl 2 gm/ Sodium 50 mls @ 100 mls/hr 06/04/25 15:00 06/05/25 03:34 Chloride IVPB Infused Q12H MARLON Infusion Insulin Aspart 2 - 5 units 05/31/25 12:00 06/05/25 05:57 Insulin Aspart (*Bkc) 100 Units/Ml SUB-Q Not Given Q6HR MARLON Protocol Multi-Ingred Cream/Lotion/Oil/Oint 1 applic 05/31/25 21:00 06/04/25 20:03 Mineral Oil/White Petrolatum Ointment EACH EYE 1 applic Q12HR MARLON Administration Pantoprazole Sodium 40 mg 05/31/25 09:00 06/04/25 20:03 Pantoprazole Sodium Iv 40 Mg Vial IV PUSH 40 mg Q12HR MARLON Administration Sodium Chloride 10 ml 05/31/25 06:00 06/05/25 05:45 Central Line Flush IV PUSH 10 ml Q8HR MARLON Administration Sodium Chloride 20 ml 05/30/25 23:54 06/04/25 04:28 Central Line Flush IV PUSH 20 ml PRN PRN Administration after blood draws Valproate Sodium 750 mg 06/01/25 21:00 06/04/25 20:03 Valproic Acid Liq 250 Mg/5 Ml Oral Solution Udc PO 750 mg HS MARLON Administration Radiology Results: ITS Impressions Chest/Abdomen/Pelvis CT 05/31/25 05:43 Impression: Complete right middle and lower lobe consolidation with a tree-in-bud and centrilobular nodules in the right upper lobe. Findings are compatible with extensive aspiration pneumonia, with fluid opacification of bronchus intermedius. Possible mild wall thickening extensively involving large bowel, as detailed above. Correlate for infectious/inflammatory colitis versus underdistention. Head CT 05/31/25 05:43 Impression: No intracranial abnormality seen. Sinus disease, as above. Abdomen X-Ray 05/31/25 09:28 IMPRESSION: 1: NG tube tip in the stomach. Renal Ultrasound 05/31/25 13:15 IMPRESSION: No abnormality seen in the kidneys. Reed's catheter seen in the urinary bladder. Chest X-Ray 06/05/25 05:55 Impression: 1: Persistent right basilar airspace consolidation which may represent pneumonia and/or atelectasis. Labs Labs: Laboratory Results - last 24 hr 06/01/25 06/03/25 06/04/25 05:36 05:05 09:57 WBC RBC Hgb Hct MCV MCH MCHC RDW Plt Count MPV Immature Gran % (Auto) Neut % (Auto) Lymph % (Auto) Jones % (Auto) Eos % (Auto) Baso % (Auto) Lymph # (Auto) Jones # (Auto) Eos # (Auto) Baso # (Auto) Abs Immat Gran (auto) Absolute Neuts (auto) Absolute Nucleated RBC Nucleated RBC % Puncture Site Left radial ABG pH 7.436 ABG pCO2 34.1 L ABG pO2 82.4 ABG PO2/FiO2 Ratio 2.35 ABG HCO3 22.4 ABG O2 Saturation 96.5 ABG O2 Content 12.8 L ABG Base Excess -1.4 A-a Gradient 127.5 Oxyhemoglobin 95.8 Total Hemoglobin 9.4 L O2 Delivery Device Ventilator O2 Liters/Min 0.0 Minute Volume Not Reportable Vent Rate 16 Not Reportable Vent Mode Cmv Spontaneous FiO2 35 Tidal Volume 350 Not Reportable PEEP 8 8 Peak Inspir Pressure Not Reportable Pressure Support 5 Sodium Potassium Chloride Carbon Dioxide Anion Gap BUN Creatinine Estim Creat Clear Calc Estimated GFR Glucose POC Capillary Glucose Calcium Phosphorus Magnesium Total Bilirubin AST ALT Alkaline Phosphatase Total Protein Albumin Crossmatch See Detail 06/04/25 06/04/25 06/04/25 11:56 15:59 17:19 WBC RBC Hgb Hct MCV MCH MCHC RDW Plt Count MPV Immature Gran % (Auto) Neut % (Auto) Lymph % (Auto) Jones % (Auto) Eos % (Auto) Baso % (Auto) Lymph # (Auto) Jones # (Auto) Eos # (Auto) Baso # (Auto) Abs Immat Gran (auto) Absolute Neuts (auto) Absolute Nucleated RBC Nucleated RBC % Puncture Site ABG pH ABG pCO2 ABG pO2 ABG PO2/FiO2 Ratio ABG HCO3 ABG O2 Saturation ABG O2 Content ABG Base Excess A-a Gradient Oxyhemoglobin Total Hemoglobin O2 Delivery Device O2 Liters/Min Minute Volume Vent Rate Vent Mode FiO2 Tidal Volume PEEP Peak Inspir Pressure Pressure Support Sodium 150 H Potassium 4.0 Chloride 118 H Carbon Dioxide 24 Anion Gap 8 BUN 28 H Creatinine 1.00 Estim Creat Clear Calc 47 Estimated GFR 56 L Glucose 93 POC Capillary Glucose 80 89 Calcium 8.4 Phosphorus Magnesium Total Bilirubin AST ALT Alkaline Phosphatase Total Protein Albumin Crossmatch 06/05/25 06/05/25 06/05/25 00:05 03:34 05:55 WBC 12.9 H RBC 3.11 L Hgb 9.0 L Hct 28.7 L MCV 92.3 MCH 28.9 MCHC 31.4 L RDW 16.8 H Plt Count 189 MPV 12.2 H Immature Gran % (Auto) 0.9 H Neut % (Auto) 83.6 H Lymph % (Auto) 8.4 L Jones % (Auto) 5.5 Eos % (Auto) 1.4 Baso % (Auto) 0.2 Lymph # (Auto) 1.08 Jones # (Auto) 0.7 H Eos # (Auto) 0.2 Baso # (Auto) 0.0 Abs Immat Gran (auto) 0.11 H Absolute Neuts (auto) 10.8 H Absolute Nucleated RBC 0.000 Nucleated RBC % 0.0 Puncture Site ABG pH ABG pCO2 ABG pO2 ABG PO2/FiO2 Ratio ABG HCO3 ABG O2 Saturation ABG O2 Content ABG Base Excess A-a Gradient Oxyhemoglobin Total Hemoglobin O2 Delivery Device O2 Liters/Min Minute Volume Vent Rate Vent Mode FiO2 Tidal Volume PEEP Peak Inspir Pressure Pressure Support Sodium 145 Potassium 4.1 Chloride 115 H Carbon Dioxide 25 Anion Gap 5 BUN 28 H Creatinine 0.98 Estim Creat Clear Calc 48 Estimated GFR 58 L Glucose 81 POC Capillary Glucose 86 86 Calcium 8.4 Phosphorus 2.6 Magnesium 2.1 Total Bilirubin 0.6 AST 28 ALT 16 Alkaline Phosphatase 102 Total Protein 5.6 L Albumin 3.0 L Crossmatch
[2025-06-05] MEDS: PANTOPRAZOLE SODIUM IV 40 MG VIAL IV PUSH ×2 (09:11→20:00)
[2025-06-05] MEDS: ENOXAPARIN 40 MG/0.4 ML SYRINGE SUB-Q (09:11)
--- NOTE | 2025-06-05 10:38 | PCFNICU ---
ICU Rounding Note: Pt current nutrition is Vital AF 1.2 @ 20 ml/h. Nutrition recommendation: Advance tube feeding to end goal of Vital AF 1.2 @ 50 ml/h as tolerated. Last recorded weight is 58.1 kg. Bowel Motility: No BMs are charted. May benefit from bowel regimen Labs Reviewed: Hgb 9.0, Hct 28.7, Alb 3.0, BUN 28 Meds Noted: Lovenox, protonix Skin: No pressure injuries Additional Notes: Pt was extubated. Pt has chronic PEG tube. Feeding regimen from [place] from chart: Bolus Jevity 1.2 300 ml TID, if PO <50% at meal. Flush 100 ml TID. Puree diet with honey thick liquids. Discuss with MD, continue with Vital 1.2 currently until pt is fully tolerated TF. Will need speech eval before attempting any PO. End goal rate Vital AF 1.2 @ 50 ml/h to provide 1320 kcal, 83 g protein, 892 ml free water. Following daily in ICU rounds. Monitoring meds, vitals, labs, orders, weights, output, plan of care Follow up Thursday/Thursday. Daily rounds.
--- NOTE | 2025-06-05 16:20 | P.PNIM_ITS ---
Progress Note: A&P Assessment and Plan (1) Septic shock: Code(s): A41.9 - Sepsis, unspecified organism; R65.21 - Severe sepsis with septic shock Status: Acute (2) Acute hypoxic respiratory failure: Code(s): J96.01 - Acute respiratory failure with hypoxia Status: Acute (3) Aspiration pneumonia: Qualifiers: Aspiration pneumonia type: unspecified Laterality: bilateral Lung location: unspecified part of lung Qualified Code(s): J69.0 - Pneumonitis due to inhalation of food and vomit Code(s): J69.0 - Pneumonitis due to inhalation of food and vomit Status: Acute (4) Acute renal failure: Code(s): N17.9 - Acute kidney failure, unspecified Status: Acute (5) Electrolyte abnormality: Code(s): E87.8 - Other disorders of electrolyte and fluid balance, not elsewhere classified Status: Acute (6) Anemia: Code(s): D64.9 - Anemia, unspecified Status: Acute Plan Upon arrival patient was intubated in ER, suspected respiratory failure 2/2 aspiration pneumonia, and admitted to ICU treated, Later patient was extubated and on 06/05 patient was reassess by the mattress spring encaser as patient not able to clear thick secretion, thinking patient may need to be reintubated however the mattress spring encaser spoke with patient brother who is her POA, made her DNR, and comfort care, will monitor. will continue conservative management, in the event patient symptoms worsen, family may place on comfort measure. Subjective Date/time seen: 06/05/25 16:20 Interval history: Unresponsive H&P-Narrative: This is a 60-year-old female with a history of intellectual disability, schizoaffective disorder, dysphagia with the PEG tube, depression and anxiety, seizure disorder who presents from her intermediate facility as she was found unresponsive, hypoxic, and with a fever. Hours before she was doing fine and she was given her nightly medications with pudding. Upon presentation to [facility] on 05/30/2025 she was found to be hypotensive tachycardia tachypneic. She was unresponsive coughing frequently. On 15 L non-rebreather was still hypoxic with SpO2 73%. BVM ventilation initiated. She was then intub ated for airway protection and respiratory failure. Central line placed left subclavian, 30 cc/kg bolus developed are administered. Norepinephrine started titrated all the way up to 50 mcg. Received 10 mg of etomidate, 70 mg of rocuronium. ER physician noted vomitus in the airway during intubation. Mechanical ventilator set at 350 mL tidal volume, 20 RR, peep of 8, FiO2 of 80%. Sedated with fentanyl. At this time she was saturating adequately. Noted fever 100.9, rectal Tylenol administered. Vancomycin cefepime and Flagyl administered. Upon arrival patient was intubated in ER, suspected respiratory failure 2/2 aspiration pneumonia, and admitted to ICU treated, Later patient was extubated and on 06/05 patient was reassess by the mattress spring encaser as patient not able to clear thick secretion, thinking patient may need to be reintubated however the mattress spring encaser spoke with patient brother who is her POA, made her DNR, and comfort care, will monitor. will continue conservative management, in the event patient symptoms worsen, family may place on comfort measure. Review of Systems Review of Systems: ROS unobtainable: Yes unobtainable due to mental status Exam Narrative: Chronically ill Patient is comfortable, NAD HEENT: eyes are clear and none icteric LUNGS:CTA HEART: RR S1S2 ABD: BS+, Soft and nontender Lower extremities: no edema SKIN: nonjaundiced Neuro: grossly intact. Objective Data Vital Signs Vital Signs: Vital Signs - 24 hr 06/04/25 18:00 06/04/25 18:00 06/04/25 18:00 Temperature 37.4 C Pulse Rate 103 H 99 99 Respiratory Rate 29 H Blood Pressure 108/54 L 108/54 L Pulse Oximetry 95 Oxygen Delivery Oxygen Flow Rate Fraction of Inspired Oxygen 06/04/25 20:00 06/04/25 20:00 06/04/25 20:00 Temperature 37.6 C Pulse Rate 111 H 110 H 110 H Respiratory Rate 30 H Blood Pressure 123/61 123/61 Pulse Oximetry 93 Oxygen Delivery Oxygen Flow Rate Fraction of Inspired Oxygen 06/04/25 20:00 06/04/25 20:55 06/04/25 20:55 Temperature Pulse Rate 102 H 102 H Respiratory Rate 25 H 25 H Blood Pressure Pulse Oximetry 93 94 Oxygen Delivery Nasal Cannula Nasal Cannula Oxygen Flow Rate 2 2 Fraction of Inspired Oxygen 06/04/25 22:00 06/04/25 22:00 06/04/25 22:00 Temperature 37.6 C H Pulse Rate 99 99 99 Respiratory Rate 27 H Blood Pressure 97/52 L 97/52 L Pulse Oximetry 93 Oxygen Delivery Oxygen Flow Rate Fraction of Inspired Oxygen 06/04/25 22:00 06/05/25 00:00 06/05/25 00:00 Temperature 37.6 C H 37.4 C Pulse Rate 97 91 Respiratory Rate 26 H 24 H Blood Pressure 103/58 L Pulse Oximetry 93 96 96 Oxygen Delivery Nasal Cannula Oxygen Flow Rate 2 Fraction of Inspired Oxygen 06/05/25 00:00 06/05/25 00:00 06/05/25 02:00 Temperature Pulse Rate 92 95 100 Respiratory Rate Blood Pressure 103/58 L 84/52 L Pulse Oximetry Oxygen Delivery Oxygen Flow Rate Fraction of Inspired Oxygen 06/05/25 02:00 06/05/25 02:00 06/05/25 02:15 Temperature 37.2 C Pulse Rate 100 98 107 H Respiratory Rate 19 Blood Pressure 116/63 116/63 Pulse Oximetry 94 Oxygen Delivery Oxygen Flow Rate Fraction of Inspired Oxygen 06/05/25 03:30 06/05/25 04:00 06/05/25 04:00 Temperature Pulse Rate 99 86 86 Respiratory Rate Blood Pressure 116/62 100/58 L Pulse Oximetry Oxygen Delivery Oxygen Flow Rate Fraction of Inspired Oxygen 06/05/25 04:00 06/05/25 04:00 06/05/25 06:00 Temperature 36.9 C Pulse Rate 86 91 Respiratory Rate 21 H Blood Pressure 100/58 L Pulse Oximetry 94 95 Oxygen Delivery Nasal Cannula Oxygen Flow Rate 2 Fraction of Inspired Oxygen 06/05/25 06:00 06/05/25 06:00 06/05/25 08:00 Temperature 36.8 C Pulse Rate 91 90 105 H Respiratory Rate 16 23 H Blood Pressure 104/59 L 104/59 L Pulse Oximetry 95 93 Oxygen Delivery Nasal Cannula Oxygen Flow Rate 2 Fraction of Inspired Oxygen 35 06/05/25 08:00 06/05/25 08:00 06/05/25 08:00 Temperature 36.8 C 36.8 C Pulse Rate 103 H 103 H 102 H Respiratory Rate 23 H Blood Pressure 141/82 H 141/82 H Pulse Oximetry 91 95 Oxygen Delivery Oxygen Flow Rate Fraction of Inspired Oxygen 06/05/25 08:20 06/05/25 08:21 06/05/25 08:27 Temperature Pulse Rate 103 H 103 H 106 H Respiratory Rate 23 H 18 Blood Pressure Pulse Oximetry 93 Oxygen Delivery Nasal Cannula Oxygen Flow Rate 2 Fraction of Inspired Oxygen 06/05/25 08:50 06/05/25 09:00 06/05/25 10:00 Temperature Pulse Rate 95 Respiratory Rate Blood Pressure Pulse Oximetry 87 L 92 Oxygen Delivery Nasal Cannula Nasal Cannula Oxygen Flow Rate 2 3 Fraction of Inspired Oxygen 06/05/25 12:00 06/05/25 12:00 06/05/25 12:00 Temperature 36.9 C Pulse Rate 102 H 102 H 102 H Respiratory Rate 27 H 27 H Blood Pressure 105/73 Pulse Oximetry 91 91 Oxygen Delivery Nasal Cannula Oxygen Flow Rate 3 Fraction of Inspired Oxygen 35 06/05/25 12:00 06/05/25 14:00 06/05/25 16:00 Temperature 36.8 C 37.6 C H Pulse Rate 101 H 96 99 Respiratory Rate 26 H 26 H Blood Pressure 105/73 107/59 L Pulse Oximetry 90 93 Oxygen Delivery Oxygen Flow Rate Fraction of Inspired Oxygen Intake/Output Intake/Output: Intake & Output 06/02/25 06/03/25 06/04/25 06/05/25 23:59 23:59 23:59 23:59 Intake Total 3479.8 3406.6 2948.0 809 Output Total 2800 2250 2225 700 Balance 679.8 1156.6 723.0 109 Meds/Results Medications: Active Medications Generic Name Dose Route Start Last Admin Trade Name Freq PRN Reason Stop Dose Admin Acetaminophen 650 mg 05/31/25 07:12 06/04/25 00:21 Acetaminophen Elixir 325 Mg/10.15 Ml Udc PO 650 mg Q6H PRN Administration Mild Pain (1-3) or Fever Acetylcysteine 200 mg 06/03/25 20:00 06/05/25 08:17 Acetylcysteine 20% Inhal Soln 800 Mg/4 Ml Vial INHALATION 200 mg Q12HRT MARLON Administration Albuterol/Ipratropium 3 ml 06/03/25 07:53 06/05/25 08:17 Ipratropium 0.5 Mg/Albuterol Sulfate 2.5 Mg Ampul.Neb 3 Ml INHALATION 3 ml Q6HRT PRN Administration wheezing Dextrose 12.5 gm 05/31/25 10:14 Dextrose 50% 25 Gm/50 Ml Syringe IV PUSH PRN PRN Hypoglycemia Protocol Enoxaparin Sodium 40 mg 06/03/25 09:00 06/05/25 09:11 Enoxaparin 40 Mg/0.4 Ml Syringe SUB-Q 40 mg DAILY MARLON Administration Glucagon 1 mg 05/31/25 10:14 Glucagon For Inj 1 Mg Vial IM PRN PRN Hypoglycemia Protocol Glucose 15 gm 05/31/25 10:14 Glucose Oral Gel 15 Gm Of Glucse In 37.5 Gm Tube PO PRN PRN Hypoglycemia Protocol Metronidazole 500 mg in 100 mls @ 100 mls/hr 05/31/25 13:00 06/05/25 14:03 Flagyl 500 Mg/Iso Soln 100 Ml IVPB 100 mls/hr Q8HR MARLON Administration Dextrose 1,000 mls @ 100 mls/hr 05/31/25 10:14 Dextrose 5% 1,000 Ml IVPB PRN PRN Hypoglycemia Protocol Cefepime HCl 2 gm/ Sodium 50 mls @ 100 mls/hr 06/04/25 15:00 06/05/25 15:08 Chloride IVPB 100 mls/hr Q12H MARLON Administration Insulin Aspart 2 - 5 units 05/31/25 12:00 06/05/25 13:00 Insulin Aspart (*Bkc) 100 Units/Ml SUB-Q Not Given Q6HR MARLON Protocol Pantoprazole Sodium 40 mg 05/31/25 09:00 06/05/25 09:11 Pantoprazole Sodium Iv 40 Mg Vial IV PUSH 40 mg Q12HR MARLON Administration Sodium Chloride 10 ml 05/31/25 06:00 06/05/25 14:10 Central Line Flush IV PUSH 10 ml Q8HR MARLON Administration Sodium Chloride 20 ml 05/30/25 23:54 06/04/25 04:28 Central Line Flush IV PUSH 20 ml PRN PRN Administration after blood draws Valproate Sodium 750 mg 06/01/25 21:00 06/04/25 20:03 Valproic Acid Liq 250 Mg/5 Ml Oral Solution Udc PO 750 mg HS MARLON Administration Radiology Results: ITS Impressions Chest/Abdomen/Pelvis CT 05/31/25 05:43 Impression: Complete right middle and lower lobe consolidation with a tree-in-bud and centrilobular nodules in the right upper lobe. Findings are compatible with extensive aspiration pneumonia, with fluid opacification of bronchus intermed ius. Possible mild wall thickening extensively involving large bowel, as detailed above. Correlate for infectious/inflammatory colitis versus underdistention. Head CT 05/31/25 05:43 Impression: No intracranial abnormality seen. Sinus disease, as above. Abdomen X-Ray 05/31/25 09:28 IMPRESSION: 1: NG tube tip in the stomach. Renal Ultrasound 05/31/25 13:15 IMPRESSION: No abnormality seen in the kidneys. Reed's catheter seen in the urinary bladder. Chest X-Ray 06/05/25 05:55 Impression: 1: Persistent right basilar airspace consolidation which may represent pneumonia and/or atelectasis. Labs Labs: Laboratory Results - last 24 hr 06/03/25 06/04/25 06/04/25 05:05 15:59 17:19 WBC RBC Hgb Hct MCV MCH MCHC RDW Plt Count MPV Immature Gran % (Auto) Neut % (Auto) Lymph % (Auto) [place] % (Auto) Eos % (Auto) Baso % (Auto) Lymph # (Auto) [place] # (Auto) Eos # (Auto) Baso # (Auto) Abs Immat Gran (auto) Absolute Neuts (auto) Absolute Nucleated RBC Nucleated RBC % Vent Rate 16 Vent Mode Cmv Tidal Volume 350 PEEP 8 Sodium 150 H Potassium 4.0 Chloride 118 H Carbon Dioxide 24 Anion Gap 8 BUN 28 H Creatinine 1.00 Estim Creat Clear Calc 47 Estimated GFR 56 L Glucose 93 POC Capillary Glucose 89 Calcium 8.4 Phosphorus Magnesium Total Bilirubin AST ALT Alkaline Phosphatase Total Protein Albumin 06/05/25 06/05/25 06/05/25 00:05 03:34 05:55 WBC 12.9 H RBC 3.11 L Hgb 9.0 L Hct 28.7 L MCV 92.3 MCH 28.9 MCHC 31.4 L RDW 16.8 H Plt Count 189 MPV 12.2 H Immature Gran % (Auto) 0.9 H Neut % (Auto) 83.6 H Lymph % (Auto) 8.4 L [place] % (Auto) 5.5 Eos % (Auto) 1.4 Baso % (Auto) 0.2 Lymph # (Auto) 1.08 [place] # (Auto) 0.7 H Eos # (Auto) 0.2 Baso # (Auto) 0.0 Abs Immat Gran (auto) 0.11 H Absolute Neuts (auto) 10.8 H Absolute Nucleated RBC 0.000 Nucleated RBC % 0.0 Vent Rate Vent Mode Tidal Volume PEEP Sodium 145 Potassium 4.1 Chloride 115 H Carbon Dioxide 25 Anion Gap 5 BUN 28 H Creatinine 0.98 Estim Creat Clear Calc 48 Estimated GFR 58 L Glucose 81 POC Capillary Glucose 86 86 Calcium 8.4 Phosphorus 2.6 Magnesium 2.1 Total Bilirubin 0.6 AST 28 ALT 16 Alkaline Phosphatase 102 Total Protein 5.6 L Albumin 3.0 L 06/05/25 11:22 WBC RBC Hgb Hct MCV MCH MCHC RDW Plt Count MPV Immature Gran % (Auto) Neut % (Auto) Lymph % (Auto) [place] % (Auto) Eos % (Auto) Baso % (Auto) Lymph # (Auto) [place] # (Auto) Eos # (Auto) Baso # (Auto) Abs Immat Gran (auto) Absolute Neuts (auto) Absolute Nucleated RBC Nucleated RBC % Vent Rate Vent Mode Tidal Volume PEEP Sodium Potassium Chloride Carbon Dioxide Anion Gap BUN Creatinine Estim Creat Clear Calc Estimated GFR Glucose POC Capillary Glucose 86 Calcium Phosphorus Magnesium Total Bilirubin AST ALT Alkaline Phosphatase Total Protein Albumin Quality VTE Prophylaxis VTE prophylaxis: pharmacologic ordered
[2025-06-05] MEDS: VALPROIC ACID LIQ 250 MG/5 ML ORAL SOLUTION UDC 750 MG PO (20:00)
--- NOTE | 2025-06-05 20:11 | ECG_ITS ---
Test Date: 2025-06-05 20:23:27 Measurements Intervals [place] Rate: 106 P: 22 IN: 135 QRS: -86 QRSD: 126 T: 16 QT: 328 QTc: 437 Interpretive Statements SINUS TACHYCARDIA RIGHT BUNDLE BRANCH BLOCK [120+ ms QRS DURATION, UPRIGHT V1, 40+ ms S IN I/aVL/V4/V5/V6] LEFT ANTERIOR FASCICULAR BLOCK [QRS AXIS <= -45, QR IN I, RS IN II] Compared to ECG 05/30/2025 23:58:24 NO SIGNIFICANT CHANGES Electronically Signed On 06-06-2025 16:37:49 CDT by Dc Martinez M.D.
[2025-06-05 21:05] LABS: Anion Gap 6 mmol/L (4-12); Blood Urea Nitrogen 28 mg/dL (7-17); Calcium 8.7 mg/dL (8.4-10.2); Carbon Dioxide 25 mmol/L (22-30); Chloride 115 mmol/L (98-107); Estimated CRCL calculation 47 ml/min; Estimated Glomerular Filt Rate 56; Glucose 106 mg/dL (65-110); Magnesium 2.2 mg/dL (1.6-2.3); Potassium 3.5 mmol/L (3.4-5.0); Sodium 146 mmol/L (137-145)
--- NOTE | 2025-06-05 22:23 | PC.NURSE ---
RN left voicemail for Trae LUKE at [id number] notifying of patient move to IMU room 214.
--- NOTE | 2025-06-05 22:24 | PC.NURSE ---
This patient, Amanda Cabrera, was transferred to IMU 214 on 06/05/25 at 2210. Personal belongings sent with patient. Report given to Sommer EM. Appropriate documentation sent with patient.
[2025-06-06] VITALS (20 sets, daily range): BP systolic 100–129; BP diastolic 48–80; PULSE 77–97; RESP 16–25; TEMP 35.9–37.9; O2SAT 94–98
[2025-06-06] MEDS: CEFEPIME 2 GM in SODIUM CHLORIDE 0.9% IV 50 ML 100 ML IVPB (03:15)
[2025-06-06] MEDS: metroNIDAZOLE 500 MG/ISO 100ML 500 MG/100 ML BAG 100 MG IVPB (06:45)
[2025-06-06] MEDS: CENTRAL LINE FLUSH 10 ML IV PUSH ×3 (06:45→20:25)
[2025-06-06] MEDS: ACETYLCYSTEINE 20% INHAL SOLN 800 MG/4 ML VIAL 200 MG INHALATION ×2 (07:43→20:33)
[2025-06-06] MEDS: IPRATROPIUM 0.5 MG/ALBUTEROL SULFATE 2.5 MG AMPUL.NEB 3 ML INHALATION (07:43)
[2025-06-06] MEDS: ENOXAPARIN 40 MG/0.4 ML SYRINGE SUB-Q (08:19)
[2025-06-06] MEDS: PANTOPRAZOLE SODIUM IV 40 MG VIAL IV PUSH ×2 (08:19→20:25)
--- NOTE | 2025-06-06 11:44 | PCNFU ---
Nutrition Follow-Up Complete: 1. Inadequate energy intake related to mechanical ventilation as evidenced by NPO - resolved 2. Severe protein calorie malnutrition related to inadequate intake as evidenced by weight loss 23%/3 months; intakes <75% needs >1 month Goal:Meet estimated nutrition needs Pt current nutrition is Vital 1.2 @ 20ml/hr. Nutrition recommendation: Advance to recommended goal rate of 50ml/hr and change formula to Jevity 1.2 Last recorded weight is 55.7 kg. Bowel Motility: +BM 06/05 Labs Reviewed: Hgb:9.0, HCT:28.7, NA:146, BUN:28 Meds Noted: protonix, novolog, protonix Skin: WNL Additional Notes: Pt continues NPO, Tube feedings Vital 1.2 @ goal rate of 20ml/hr, noted this is not sufficient to meet needs. Recommend to advance to goal rate of 50ml/hr. Also recommend to change to Jevity 1.2 for formula as pt is no longer vented. Total intake at 50ml/hr provides 1320kcals, 61g protein. 887ml free water. Recommend a 100ml water flush q 6 hrs for an additional 400ml free water, 1287ml free water over 24hrs. Pt to remain NPO at this time. Monitoring tube feeding, tolerance, meds, vitals, labs, orders, weights, output, plan of care Follow up Thursday/Thursday
[2025-06-06] MEDS: ACETAMINOPHEN ELIXIR 325 MG/10.15 ML UDC 650 MG PO ×3 (12:31→20:24)
[2025-06-06] MEDS: POTASSIUM CHLORIDE 20 MEQ PACKET (FOR LIQUID) 40 MEQ PO (12:31)
--- NOTE | 2025-06-06 16:20 | PM.IMPN ---
Progress Note: A&P Assessment and Plan (1) Septic shock: Code(s): A41.9 - Sepsis, unspecified organism; R65.21 - Severe sepsis with septic shock Status: Acute (2) Acute hypoxic respiratory failure: Code(s): J96.01 - Acute respiratory failure with hypoxia Status: Acute (3) Aspiration pneumonia: Qualifiers: Aspiration pneumonia type: unspecified Laterality: bilateral Lung location: unspecified part of lung Qualified Code(s): J69.0 - Pneumonitis due to inhalation of food and vomit Code(s): J69.0 - Pneumonitis due to inhalation of food and vomit Status: Acute (4) Acute renal failure: Code(s): N17.9 - Acute kidney failure, unspecified Status: Acute (5) Electrolyte abnormality: Code(s): E87.8 - Other disorders of electrolyte and fluid balance, not elsewhere classified Status: Acute (6) Anemia: Code(s): D64.9 - Anemia, unspecified Status: Acute Plan Upon arrival patient was intubated in ER, suspected respiratory failure 2/2 aspiration pneumonia, and admitted to ICU treated, Later patient was extubated and on 06/05 patient was reassess by the computer aided design technician as patient not able to clear thick secretion, thinking patient may need to be reintubated however the computer aided design technician spoke with patient brother who is her POA, made her DNR, and comfort care, will monitor. will continue conservative management, in the event patient symptoms worsen, family may place on comfort measure. patient remains clinically stable, Gtube feeding was change to Javity and goal of 50 per hour will monitor. Subjective Date/time seen: 06/06/25 16:20 Interval history: Unresponsive H&P-Narrative: This is a 60-year-old female with a history of intellectual disability, schizoaffective disorder, dysphagia with the PEG tube, depression and anxiety, seizure disorder who [facility] from her [facility] facility as she was found unresponsive, hypoxic, and with a fever. Hours before she was doing fine and she was given her nightly medications with pudding. Upon presentation to [facility] on 05/30/2025 she was found to be hypotensive tachycardia tachypneic. She was unresponsive coughing frequently. On 15 L non-rebreather was still hypoxic with SpO2 73%. BVM ventilation initiated. She was then intubated for airway protection and respiratory failure. Central line placed left subclavian, 30 cc/kg bolus developed are administered. Norepinephrine started titrated all the way up to 50 mcg. Received 10 mg of etomidate, 70 mg of rocuronium. ER physician noted vomitus in the airway during intubation. Mechanical ventilator set at 350 mL tidal volume, 20 RR, peep of 8, FiO2 of 80%. Sedated with fentanyl. At this time she was saturating adequately. Noted fever 100.9, rectal Tylenol administered. Vancomycin cefepime and Flagyl administered. Upon arrival patient was intubated in ER, suspected respiratory failure 2/2 aspiration pneumonia, and admitted to ICU treated, Later patient was extubated and on 06/05 patient was reassess by the computer aided design technician as patient not able to clear thick secretion, thinking patient may need to be reintubated however the computer aided design technician spoke with patient brother who is her POA, made her DNR, and comfort care, will monitor. will continue conservative management, in the event patient symptoms worsen, family may place on comfort measure. patient remains clinically stable, Gtube feeding was change to Javity and goal of 50 per hour will monitor. Review of Systems Review of Systems: ROS unobtainable: Yes unobtainable due to endotracheal tube, unobtainable due to medical condition and unobtainable due to mental status Exam Narrative: Chronically ill Patient is comfortable, NAD HEENT: eyes are clear and none icteric LUNGS:CTA HEART: RR S1S2 ABD: BS+, Soft and nontender Lower extremities: no edema SKIN: nonjaundiced Neuro: grossly intact. Objective Data Vital Signs Vital Signs: Vital Signs - 24 hr 06/05/25 18:00 06/05/25 19:59 06/05/25 20:00 Temperature 38.1 C H Pulse Rate 90 98 Respiratory Rate 32 H Blood Pressure 110/61 Pulse Oximetry 91 91 Oxygen Delivery Nasal Cannula Oxygen Flow Rate 4 06/05/25 20:00 06/05/25 20:08 06/05/25 20:39 Temperature Pulse Rate 98 96 119 H Respiratory Rate 30 H 23 H Blood Pressure Pulse Oximetry Oxygen Delivery Oxygen Flow Rate 06/05/25 21:53 06/05/25 21:54 06/05/25 22:00 Temperature 38.1 C H Pulse Rate 103 H 95 Respiratory Rate 28 H Blood Pressure 100/48 L Pulse Oximetry 93 93 Oxygen Delivery Nasal Cannula Oxygen Flow Rate 6 06/06/25 00:00 06/06/25 00:00 06/06/25 00:00 Temperature 37.7 C H Pulse Rate 97 95 Respiratory Rate 24 H Blood Pressure 103/48 L Pulse Oximetry 98 98 Oxygen Delivery Nasal Cannula Oxygen Flow Rate 6 06/06/25 02:00 06/06/25 02:45 06/06/25 04:00 Temperature Pulse Rate 90 Respiratory Rate Blood Pressure Pulse Oximetry 97 96 Oxygen Delivery High Flow Nasal Cannula Nasal Cannula Oxygen Flow Rate 6 6 06/06/25 04:00 06/06/25 04:00 06/06/25 06:00 Temperature 37.8 C H Pulse Rate 91 94 77 Respiratory Rate 18 Blood Pressure 100/54 L Pulse Oximetry 98 Oxygen Delivery Oxygen Flow Rate 06/06/25 07:40 06/06/25 07:47 06/06/25 07:47 Temperature 37.7 C H Pulse Rate 96 95 Respiratory Rate 20 20 Blood Pressure 111/52 L Pulse Oximetry 94 95 Oxygen Delivery High Flow Nasal Cannula Oxygen Flow Rate 6 06/06/25 07:53 06/06/25 08:00 06/06/25 08:00 Temperature Pulse Rate 97 97 Respiratory Rate 20 Blood Pressure Pulse Oximetry 95 Oxygen Delivery High Flow Nasal Cannula Oxygen Flow Rate 6 06/06/25 10:00 06/06/25 11:38 06/06/25 12:31 Temperature 37.9 C H 37.9 C H Pulse Rate 93 90 Respiratory Rate 24 H Blood Pressure 111/59 L Pulse Oximetry 97 Oxygen Delivery Oxygen Flow Rate 06/06/25 15:45 Temperature 37.9 C H Pulse Rate 86 Respiratory Rate 25 H Blood Pressure 115/64 Pulse Oximetry 97 Oxygen Delivery Oxygen Flow Rate Intake/Output Intake/Output: Intake & Output 06/03/25 06/04/25 06/05/25 06/06/25 23:59 23:59 23:59 23:59 Intake Total 3406.6 2948.0 1628 50 Output Total 2250 2225 1500 100 Balance 1156.6 723.0 128 -50 Meds/Results Medications: Active Medications Generic Name Dose Route Start Last Admin Trade Name Freq PRN Reason Stop Dose Admin Acetaminophen 650 mg 05/31/25 07:12 06/06/25 12:31 Acetaminophen Elixir 325 Mg/10.15 Ml Udc PO 650 mg Q6H PRN Administration Mild Pain (1-3) or Fever Acetylcysteine 200 mg 06/03/25 20:00 06/06/25 07:43 Acetylcysteine 20% Inhal Soln 800 Mg/4 Ml Vial INHALATION 200 mg Q12HRT MARLON Administration Albuterol/Ipratropium 3 ml 06/03/25 07:53 06/06/25 07:43 Ipratropium 0.5 Mg/Albuterol Sulfate 2.5 Mg Ampul.Neb 3 Ml INHALATION 3 ml Q6HRT PRN Administration wheezing Dextrose 12.5 gm 05/31/25 10:14 Dextrose 50% 25 Gm/50 Ml Syringe IV PUSH PRN PRN Hypoglycemia Protocol Enoxaparin Sodium 40 mg 06/03/25 09:00 06/06/25 08:19 Enoxaparin 40 Mg/0.4 Ml Syringe SUB-Q 40 mg DAILY MARLON Administration Glucagon 1 mg 05/31/25 10:14 Glucagon For Inj 1 Mg Vial IM PRN PRN Hypoglycemia Protocol Glucose 15 gm 05/31/25 10:14 Glucose Oral Gel 15 Gm Of Glucse In 37.5 Gm Tube PO PRN PRN Hypoglycemia Protocol Dextrose 1,000 mls @ 100 mls/hr 05/31/25 10:14 Dextrose 5% 1,000 Ml IVPB PRN PRN Hypoglycemia Protocol Insulin Aspart 2 - 5 units 05/31/25 12:00 06/06/25 15:44 Insulin Aspart (*Bkc) 100 Units/Ml SUB-Q Not Given Q6HR MARLON Protocol Pantoprazole Sodium 40 mg 05/31/25 09:00 06/06/25 08:19 Pantoprazole Sodium Iv 40 Mg Vial IV PUSH 40 mg Q12HR MARLON Administration Sodium Chloride 10 ml 05/31/25 06:00 06/06/25 15:54 Central Line Flush IV PUSH 10 ml Q8HR MARLON Administration Sodium Chloride 20 ml 05/30/25 23:54 06/04/25 04:28 Central Line Flush IV PUSH 20 ml PRN PRN Administration after blood draws Valproate Sodium 750 mg 06/01/25 21:00 06/05/25 20:00 Valproic Acid Liq 250 Mg/5 Ml Oral Solution Udc PO 750 mg HS MARLON Administration Radiology Results: ITS Impressions Chest/Abdomen/Pelvis CT 05/31/25 05:43 Impression: Complete right middle and lower lobe consolidation with a tree-in-bud and centrilobular nodules in the right upper lobe. Findings are compatible with extensive aspiration pneumonia, with fluid opacification of bronchus intermedius. Possible mild wall thickening extensively involving large bowel, as detailed above. Correlate for infectious/inflammatory colitis versus underdistention. Head CT 05/31/25 05:43 Impression: No intracranial abnormality seen. Sinus disease, as above. Abdomen X-Ray 05/31/25 09:28 IMPRESSION: 1: NG tube tip in the stomach. Renal Ultrasound 05/31/25 13:15 IMPRESSION: No abnormality seen in the kidneys. Reed's catheter seen in the urinary bladder. Chest X-Ray 06/05/25 05:55 Impression: 1: Persistent right basilar airspace consolidation which may represent pneumonia and/or atelectasis. Labs Labs: Laboratory Results - last 24 hr 06/05/25 06/05/25 06/05/25 18:15 20:17 23:53 Sodium 146 H Potassium 3.5 Chloride 115 H Carbon Dioxide 25 Anion Gap 6 BUN 28 H Creatinine 1.00 Estim Creat Clear Calc 47 Estimated GFR 56 L Glucose 106 POC Capillary Glucose 86 90 Calcium 8.7 Magnesium 2.2 06/06/25 06/06/25 06:50 11:20 Sodium Potassium Chloride Carbon Dioxide Anion Gap BUN Creatinine Estim Creat Clear Calc Estimated GFR Glucose POC Capillary Glucose 100 93 Calcium Magnesium Quality VTE Prophylaxis VTE prophylaxis: pharmacologic ordered
--- NOTE | 2025-06-06 18:35 | WNDPHOTO ---
PHOTO ONLY - See Nursing Notes and/ or assessments for documentation.
[2025-06-06] MEDS: VALPROIC ACID LIQ 250 MG/5 ML ORAL SOLUTION UDC 750 MG PO (20:24)
--- NOTE | 2025-06-06 22:57 | PC.NURSE ---
Report given to receiving nurse. Pt was cleaned up, bed changed, and clean linens provided before pt moved. Pt was restarted on tube feeding upon arrival to [facility]. Rechecked pt, to ensure she was still clean. Pt put on oxygen at 4L NC humidified. Charge nurse Veronique present upon pt arrival.
[2025-06-07] MEDS: MORPHINE SULFATE (*CRX) 2 MG/ML INJ IV PUSH ×3 (01:33→15:08)
[2025-06-07 08:55] VITALS: O2SAT 96
[2025-06-07] MEDS: CENTRAL LINE FLUSH 10 ML IV PUSH (08:55)
[2025-06-07] MEDS: ENOXAPARIN 40 MG/0.4 ML SYRINGE SUB-Q (08:55)
[2025-06-07] MEDS: PANTOPRAZOLE SODIUM IV 40 MG VIAL IV PUSH (08:55)
[2025-06-07] MEDS: IPRATROPIUM 0.5 MG/ALBUTEROL SULFATE 2.5 MG AMPUL.NEB 3 ML INHALATION (09:14)
[2025-06-07] MEDS: ACETYLCYSTEINE 20% INHAL SOLN 800 MG/4 ML VIAL 200 MG INHALATION (09:14)
[2025-06-07 09:15] VITALS: O2SAT 96
[2025-06-07 09:16] VITALS: PULSE 81; RESP 20
[2025-06-07 09:29] VITALS: PULSE 87; RESP 20
[2025-06-07 10:37] VITALS: BP 110/59; PULSE 87; RESP 19; TEMP 36.4; O2SAT 99
--- NOTE | 2025-06-07 14:24 | PM.DS ---
DS: Admitting Diagnosis Discharge Date 06/07 Admitting Diagnosis 1. Fever 2. Lethargy DS: Discharge Diagnosis Discharge Diagnosis (1) Septic shock: Code(s): A41.9 - Sepsis, unspecified organism; R65.21 - Severe sepsis with septic shock Status: Acute (2) Acute hypoxic respiratory failure: Code(s): J96.01 - Acute respiratory failure with hypoxia Status: Acute (3) Aspiration pneumonia: Qualifiers: Aspiration pneumonia type: unspecified Laterality: bilateral Lung location: unspecified part of lung Qualified Code(s): J69.0 - Pneumonitis due to inhalation of food and vomit Code(s): J69.0 - Pneumonitis due to inhalation of food and vomit Status: Acute (4) Acute renal failure: Code(s): N17.9 - Acute kidney failure, unspecified Status: Acute (5) Electrolyte abnormality: Code(s): E87.8 - Other disorders of electrolyte and fluid balance, not elsewhere classified Status: Acute (6) Anemia: Code(s): D64.9 - Anemia, unspecified Status: Acute Plan Upon arrival patient was intubated in ER, suspected respiratory failure 2/2 aspiration pneumonia, and admitted to ICU treated, Later patient was extubated and on 06/05 patient was reassess by the assistant professor of biology as patient not able to clear thick secretion, thinking patient may need to be reintubated however the assistant professor of biology spoke with patient brother who is her POA, made her DNR, and comfort care, will monitor. will continue conservative management, in the event patient symptoms worsen, family may place on comfort measure. patient remains clinically stable, Gtube feeding was change to Javity and goal of 50 per hour will monitor. DS: Summary Hospital Course Hospital Course: Upon arrival patient was intubated in ER, suspected respiratory failure 2/2 aspiration pneumonia, and admitted to ICU treated, Later patient was extubated and on 06/05 patient was reassess by the assistant professor of biology as patient not able to clear thick secretion, thinking patient may need to be reintubated however the assistant professor of biology spoke with patient brother who is her POA, made her DNR, and comfort care, will monitor. will continue conservative management, in the event patient symptoms worsen, family may place on comfort measure. patient remains clinically stable, Gtube feeding was change to Javity and goal of 50 per hour will monitor. Patient is being discharged and will be admitted under hospice care. Time Spent with Patient Time attestation: Total time spent providing and/or coordinating discharge services: Exam Narrative: Chronically ill Patient is comfortable, NAD HEENT: eyes are clear and none icteric LUNGS:CTA HEART: RR S1S2 ABD: BS+, Soft and nontender Lower extremities: no edema SKIN: nonjaundiced Neuro: grossly intact. DS: Data Data Completed and Pending Labs on day of discharge: Labs from last 24 hours 06/07/25 06/07/25 06/06/25 11:37 06:02 23:25 POC Capillary Glucose 124 H 132 H 113 H 06/06/25 18:12 POC Capillary Glucose 113 H Discharge Plan Discharge Attending physician on discharge: Francisca Owen Consulting providers: Nichelle Sosa; Mona Partida; Demetrius Claros; Bhupendra Sorensen; Arely Santiago; Sebastian Mathis; Bhuepndra Schultz; Mil Blake; Nadeem Epperson; Stanislaw Bryant; Jett Gabriel; Dc Martinez Discharging Clinician: Gilberto Herbert Patient Disposition: Hospice - Home Activity: as tolerated Diet: tube feeding Discharge Instructions: patient is being discharge to [place] where she will be admitted under hospice care Patient Instructions: Antibiotic Form, Removal of a Central Line, PICC, or Midline Catheter (DC) Patient Language: Kyrgyz Stand Alone Forms: General Discharge Information Discharge Medications: Continued valproic acid 250 mg Capsule 750 mg PO HS Patient Comments: Takes Liquid form lisinopril 10 mg Tablet 10 mg PO DAILY bupropion HCl [Wellbutrin XL] 150 mg Tablet Extended Release 24 Hr 150 mg PO QAM acetaminophen 325 mg Tablet 650 mg feeding tube Q4H PRN (Reason: pain or fever) Qty: 10 0RF alprazolam [Xanax] 0.5 mg Tablet 0.5 mg feeding tube TID Qty: 10 0RF aripiprazole 20 mg Tablet 20 mg feeding tube DAILY Qty: 10 0RF ipratropium-albuterol 0.5 mg-3 mg(2.5 mg base)/3 mL solution for nebulization 3 ml inhalation Q6H PRN (Reason: shortness of breath or wheezing) furosemide [Lasix] 40 mg tablet 40 mg PO DAILY Allergy Relief (loratadine) 10 mg capsule 10 mg PO DAILY guaifenesin [Mucinex] 1,200 mg tablet extended release 12hr 1,200 mg PO BID famotidine 20 mg tablet 20 mg feeding tube DAILY Date of admission: 05/31/25 03:31 Primary Care Provider: PHYSICIAN NOT ON STAFF,NONSTAFF Admitting Provider: Francisca Owen Attending physician on admission: Gilberto Herbert Condition: Stable
[2025-06-07 14:50] VITALS: BP 121/64; PULSE 87; RESP 18; TEMP 36.6; O2SAT 98
[2025-06-07] MEDS: NEOMYCIN/POLYMYXIN/BACITRACIN OINTMENT PACKET 1 PACKET (15:08)
== END 2025-06-07 17:50 | DRG 870 ==
LOC: ANHED 23:12 → ANHICU 05-31 03:44 → ANH2MED 06-07 14:22 → ANHIMU 06-08 10:13 → ANHICU 06-08 10:13
PROVIDERS: Internal Medicine; Internal Medicine Gastroenterology; Internal Medicine Nephrology; Internal Medicine Pulmonary Disease; Physician Assistant; Admitting Provider General Practice; Emergency Provider Student in an Organized Health Care Education/Training Program; Visit Provider Family Medicine
PROC: 0BJ08ZZ Inspection of Tracheobronchial Tree, Via Natural or Artificial Opening Endoscopic (ICD-10-PCS; CPT 31622; principal; 2025-06-01 09:30)
PROC: 0DJ08ZZ Inspection of Upper Intestinal Tract, Via Natural or Artificial Opening Endoscopic (ICD-10-PCS; principal; 2025-06-02 15:00)
DX: A41.9 Sepsis, unspecified organism (principal); J69.0 Pneumonitis due to inhalation of food and vomit; R65.21 Severe sepsis with septic shock; J96.01 Acute respiratory failure with hypoxia; E87.0 Hyperosmolality and hypernatremia; N17.9 Acute kidney failure, unspecified; K92.0 Hematemesis; F79 Unspecified intellectual disabilities; G40.909 Epilepsy, unspecified, not intractable, without status epilepticus; F25.9 Schizoaffective disorder, unspecified; F32.9 Major depressive disorder, single episode, unspecified; F41.9 Anxiety disorder, unspecified; E86.0 Dehydration; D64.9 Anemia, unspecified; Z93.1 Gastrostomy status; Z66 Do not resuscitate; Z51.5 Encounter for palliative care
CPT/HCPCS: 31500; 36415; 36430; 36556; 36600; 70450; 71045; 71260; 74177; 76775; 80048; 80053; 80202; 81001; 81050; 82375; 82550; 82570; 82607; 82746; 82803; 82805; 82948; 83050; 83540; 83550; 83605; 83690; 83735; 83935; 84100; 84156; 84300; 84439; 84443; 84481; 84540; 85018; 85025; 85610; 85730; 85999; 86140; 86850; 86900; 86901; 86923; 87040; 87070; 87641; 93005; 94002; 94003; 94640; 94667; 94668; 94669; 96361; 96365; 96367; 96375; 99291; A9270; C1751; C8929; J0692; J1265; J1644; J1650; J1741; J1815; J1836; J2003; J2250; J2270; J2470; J3010; J3373; J3480; J7050; J7060; J7070; J7120; J7639; P9016; P9047; Q9957; Q9967